=== PATIENT | male | born 1945 | race Caucasian/White ===

== ENCOUNTER 2016-06-02 20:50 | Inpatient (IN) | payer MEDICARE, BC ==
[~2016-06-02] VITALS: Ht 185.4 cm; Wt 111.1 kg
[~2016-06-02 20:50] MED LIST: ALLO100T PO; DABI150C PO; DILT120C PO; HYDR-2869 PO; INSU100C4 SQ; INSU100V13 SQ; LOSA100T6 PO; METO-269 PO; METO2.5T PO; POTA20TA82 PO; PRAV20TA2 PO; TORS100T3 PO
[2016-06-02 22:15] VITALS: BP 169/94
--- NOTE | 2016-06-03 00:46 | EKG ---
[facility] [address] [place] [address] Test Date: 2016-06-03 Test Time: 00:37:47 Pat Name: DOROTHEA HERNÁNDEZ Department: Room: 206 1 Gender: M Butcher Scullion: IAM : 1945 Requested By: MARCUS ROD Order Number: [id number] Reading MD: Kathy Moreno Measurements Intervals [place] Rate: 87 P: [place]: QRS: -59 QRSD: 122 T: 145 QT: 422 QTc: 508 Interpretive Statements IRREGULAR RHYTHM, NO P-WAVE FOUND VENTRICULAR PREMATURE COMPLEX(ES) ABNORMAL LEFT AXIS DEVIATION QRS(T) CONTOUR ABNORMALITY CONSISTENT WITH INFERIOR INFARCT PROBABLY OLD T ABNORMALITY IN HIGH LATERAL LEADS ABNORMAL ECG RI6.01 No previous ECG available for comparison Electronically Signed On 06-04-2016 0:42:00 DICE TABLE PERSON by Kathy Moreno
[2016-06-03] MEDS ORDERED: HYDR-2868 PO (02:48)
[2016-06-03] MEDS ORDERED: DABI75CA3 PO (02:48)
[2016-06-03] MEDS ORDERED: FURO40TA4 PO (02:48)
[2016-06-03 03:50] VITALS: BP 142/88
[2016-06-03] MEDS: HEPARIN PF for SUB-Q USE 5,000 UNIT/0.5 ML VIAL. SQ SCH ×3 (06:40→21:02)
[2016-06-03 07:00] VITALS: BP 165/98
[2016-06-03 07:55] LABS: BASO # 0.1 x10^3/uL (0.0-0.2); BASO % 1 % (0-3); EOS % 2 % (0-3); HEMATOCRIT 31.7 % (39.0-53.0); HEMOGLOBIN 9.9 g/dL (13.0-17.5); LYMPH # 1.2 x10^3/uL (1.0-4.8); LYMPH % 12 % (24-48); MEAN CORPUSCULAR HEMOGLOBIN 31 pg (25-35); MEAN CORPUSCULAR HGB CONC 31 g/dL (31-37); MEAN CORPUSCULAR VOLUME 101 fL (79-100); MONO % 7 % (0-9); NEUT % 79 % (31-73); PLATELET COUNT 185 x10^3/uL (140-400); RED BLOOD COUNT 3.15 x10^6/uL (4.30-5.70); RED CELL DISTRIBUTION WIDTH 17.2 % (11.5-14.5); WHITE BLOOD COUNT 10.5 x10^3/uL (4.0-11.0)
[2016-06-03 07:58] LABS: CALCIUM 8.6 mg/dL (8.5-10.1); CREATININE 3.2 mg/dL (0.7-1.3); GFR 19.4; POTASSIUM 3.3 mmol/L (3.5-5.1)
[2016-06-03] MEDS: FUROSEMIDE 40 MG/4 ML VIAL IVP SCH ×2 (10:00→13:28)
[2016-06-03 11:00] VITALS: BP 177/99
--- NOTE | 2016-06-03 12:16 | PDOC2 ---
CONSULT Date of Consult Date of Consult DATE: 06/03/16 TIME: 12:02 Reason for Consult Reason for Consult: Congestive heart failure Referring Physician Referring Physician: Dr. Rodriguez Identification/Chief Complaint Chief Complaint Edema and shortness of breath Source Source: Chart review, Patient History of Present Illness Reason for Visit: 70-year-old male with history of permanent atrial fibrillation and congestive heart failure presented initially to [facility] emergency room with progressive lower extremity edema and dyspnea on minor exertion. He was diagnosed with acute exacerbation of congestive heart failure and transferred to [facility] for further management. He complained of orthopnea but denied any chest pain, palpitations or syncope. He usually sees Dr. Jimenez with [facility] cardiology at his [place] office. Patient stated that he was seen approximately one month ago at this location by GLORIA Gomez. Past Medical History Past Medical History Permanent atrial fibrillation Congestive heart failure, mixed diastolic and systolic Stroke Hypertension Hyperlipidemia Diabetes mellitus type 2 Thoracic aortic aneurysm Obstructive sleep apnea Chronic kidney disease stage 3-4 Mild nonobstructive coronary artery disease Renal cancer Past Surgical History Past Surgical History Cataract surgery Family History Family History Positive for coronary artery disease Social History Social History Patient quit smoking 11 years ago and admitted to social intake of alcohol but denied any drug abuse. Current Medications Current Medications Current Medications Heparin Sodium (Porcine) 5,000 unit Q8HRS SQ Last administered on 06/03/16 06: 40; Start 06/03/16 at 06:00 Furosemide (Lasix) 40 mg BID92 IVP Last administered on 06/03/16 10:00; Start 06/03/16 at 09:00 Active Scripts Active Reported Furosemide 40 Mg Tablet 40 Mg PO BID Hydralazine Hcl 25 Mg Tablet 75 Mg PO TID Pradaxa (Dabigatran Etexilate Mesylate) 75 Mg Capsule 75 Mg PO BID Metolazone 2.5 Mg Tablet 2.5 Mg PO THREE TIMES A WEEK Allopurinol 100 Mg Tablet 200 Mg PO DAILY Potassium Chloride 20 Meq Tablet.er 20 Meq PO DAILY Toprol Xl (Metoprolol Succinate) 50 Mg Tab.er.24h 50 Mg PO DAILY Levemir (Insulin Detemir) 100 Unit/1 Ml Vial 100 Unit SQ PRN Losartan Potassium 100 Mg Tablet 100 Mg PO DAILY Pravastatin Sodium 20 Mg Tablet 20 Mg PO DAILY Torsemide 100 Mg Tablet 100 Mg PO DAILY Novolog (Insulin Aspart) 100 Unit/1 Ml Cartridge 100 Unit SQ PRN Diltiazem 24HR Er (Diltiazem Hcl) 120 Mg Cap.er.24h 120 Mg PO DAILY Allergies Allergies: Coded Allergies: lisinopril (Verified Adverse Reaction, Intermediate, Cough, 01/06/16) ROS PSYCHOLOGICAL ROS: No: Hallucinations Eyes: No Loss of vision HEENT: No: Epistaxis Respiratory: YES: Orthopnea, Shortness of breath, No: Hemoptysis Cardiovascular: No Chest Pain, No Palpitations Gastrointestinal: No Diarrhea, No Vomiting Neurological: No Seizures Skin: No Rash Physical Exam General: Alert, No acute distress HEENT: Atraumatic, PERRLA Lungs: Other (bilateral basal crepitations) Heart: Other (heart rate irregular) Abdomen: Soft, No tenderness Extremities: Other (2 plus pitting pedal edema bilaterally) Psych/Mental Status: Mood NL Vitals VITALS Vital Signs Date Time Temp Pulse Resp B/P Pulse Ox O2 Delivery O2 Flow Rate FiO2 06/03/16 11:00 98.1 81 24 177/99 94 Room Air 98.1 Labs Labs Laboratory Tests Test 06/03/16 00:34 06/03/16 07:35 Troponin I Quantitative 0.086ng/mL (0.000-0.055) 0.094ng/mL (0.000-0.055) White Blood Count 10.5x10^3/uL (4.0-11.0) Red Blood Count 3.15x10^6/uL (4.30-5.70) Hemoglobin 9.9g/dL (13.0-17.5) Hematocrit 31.7% (39.0-53.0) Mean Corpuscular Volume 101fL (79-100) Mean Corpuscular Hemoglobin 31pg (25-35) Mean Corpuscular Hemoglobin Concent 31g/dL (31-37) Red Cell Distribution Width 17.2% (11.5-14.5) Platelet Count 185x10^3/uL (140-400) Neutrophils (%) (Auto) 79% (31-73) Lymphocytes (%) (Auto) 12% (24-48) Monocytes (%) (Auto) 7% (0-9) Eosinophils (%) (Auto) 2% (0-3) Basophils (%) (Auto) 1% (0-3) Neutrophils # (Auto) 8.3x10^3uL (1.8-7.7) Lymphocytes # (Auto) 1.2x10^3/uL (1.0-4.8) Monocytes # (Auto) 0.7x10^3/uL (0.0-1.1) Eosinophils # (Auto) 0.2x10^3/uL (0.0-0.7) Basophils # (Auto) 0.1x10^3/uL (0.0-0.2) Sodium Level 146mmol/L (136-145) Potassium Level 3.3mmol/L (3.5-5.1) Chloride Level 112mmol/L (98-107) Carbon Dioxide Level 20mmol/L (21-32) Anion Gap 14 (6-14) Blood Urea Nitrogen 61mg/dL (8-26) Creatinine 3.2mg/dL (0.7-1.3) Estimated GFR (Cockcroft-Gault) 19.4 Glucose Level 137mg/dL (70-99) Calcium Level 8.6mg/dL (8.5-10.1) MI-Fkr-B-Type Natriuretic Peptide 30898nq/mL (0-124) Laboratory Tests Test 06/03/16 00:34 06/03/16 07:35 Troponin I Quantitative 0.086ng/mL (0.000-0.055) 0.094ng/mL (0.000-0.055) White Blood Count 10.5x10^3/uL (4.0-11.0) Red Blood Count 3.15x10^6/uL (4.30-5.70) Hemoglobin 9.9g/dL (13.0-17.5) Hematocrit 31.7% (39.0-53.0) Mean Corpuscular Volume 101fL (79-100) Mean Corpuscular Hemoglobin 31pg (25-35) Mean Corpuscular Hemoglobin Concent 31g/dL (31-37) Red Cell Distribution Width 17.2% (11.5-14.5) Platelet Count 185x10^3/uL (140-400) Neutrophils (%) (Auto) 79% (31-73) Lymphocytes (%) (Auto) 12% (24-48) Monocytes (%) (Auto) 7% (0-9) Eosinophils (%) (Auto) 2% (0-3) Basophils (%) (Auto) 1% (0-3) Neutrophils # (Auto) 8.3x10^3uL (1.8-7.7) Lymphocytes # (Auto) 1.2x10^3/uL (1.0-4.8) Monocytes # (Auto) 0.7x10^3/uL (0.0-1.1) Eosinophils # (Auto) 0.2x10^3/uL (0.0-0.7) Basophils # (Auto) 0.1x10^3/uL (0.0-0.2) Sodium Level 146mmol/L (136-145) Potassium Level 3.3mmol/L (3.5-5.1) Chloride Level 112mmol/L (98-107) Carbon Dioxide Level 20mmol/L (21-32) Anion Gap 14 (6-14) Blood Urea Nitrogen 61mg/dL (8-26) Creatinine 3.2mg/dL (0.7-1.3) Estimated GFR (Cockcroft-Gault) 19.4 Glucose Level 137mg/dL (70-99) Calcium Level 8.6mg/dL (8.5-10.1) QW-Qyn-Z-Type Natriuretic Peptide 26794qu/mL (0-124) Assessment/Plan Assessment/Plan 1. 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: Continue gentle diuresis with close monitoring of BUN/creatinine in lieu of his chronic kidney disease. 2-D echo in July 2015 showed LVEF 45-50%. We will obtain records from [facility] dean's office. 2. Hypertension: Controlled 3. Permanent atrial fibrillation: Heart rate well-controlled. Continue current medications including Pradaxa for stroke prophylaxis. 4. Slight troponin level elevation most probably type II from demand ischemia and chronic kidney disease. Patient has history of mild nonobstructive coronary artery disease. He is presently chest pain-free. Doubt ACS. 5. Hyperlipidemia: Continue statin therapy. 6. Diabetes type 2: Continue treatment per IM. 7. Chronic kidney disease: Treat per nephrology team. Thank you for your consultation. LEX BAZZI MD Jun 03, 2016 12:16
[2016-06-03] MEDS ORDERED: NON FORMULARY ITEM (Insulin Aspart (Novolog) 100 UNIT) SQ SCH (14:15)
[2016-06-03] MEDS ORDERED: INSULIN DETEMIR 100 UNIT SQ SCH (14:15)
[2016-06-03 15:00] VITALS: BP 173/86
[2016-06-03] MEDS ORDERED: FUROSEMIDE 40 MG TABLET PO SCH (15:00)
[2016-06-03] MEDS ORDERED: POTASSIUM CHLORIDE 20 MEQ TABLET.ER. PO SCH (15:00)
[2016-06-03] MEDS ORDERED: TORSEMIDE 20 MG TABLET. PO SCH (15:00)
--- NOTE | 2016-06-03 15:29 | HP ---
ADMIT DATE: 06/03/2016 CHIEF COMPLAINT: Shortness of breath. HISTORY OF PRESENT ILLNESS: The patient is a pleasant 70-year-old male who has had history of CHF in the past. He presented to [facility] with complaints of shortness of breath. It should be noted that he is also recently diagnosed with renal cell carcinoma. While at [facility], they noticed his BNP level is greater than 35,000. He had vascular congestion on chest x-ray. Dr. Prakash called me from the Emergency Room. I agreed to take the patient as direct admit back in our facility. PAST MEDICAL HISTORY: CHF, hyperlipidemia, hypertension, diabetes, Charcot joints, arthritis, renal cell carcinoma, gout, hypertension, and insomnia. ALLERGIES: LISINOPRIL. FAMILY HISTORY: Diabetes. SOCIAL HISTORY: Does not drink, smoke, or take drugs. He is retired. MEDICATIONS: Reviewed, please refer to MRAD. REVIEW OF SYSTEMS: GENERAL: No history of weight change, weakness or fevers. SKIN: No bruising, hair changes or rashes. EYES: No blurred, double or loss of vision. NOSE AND THROAT: No history of nosebleeds, hoarseness or sore throat. HEART: No history of palpitations, chest pain or shortness of breath on exertion. LUNGS: Complains of shortness of breath. GASTROINTESTINAL: Denies changes in appetite, nausea, vomiting, diarrhea or constipation. GENITOURINARY: No history of frequency, urgency, hesitancy or nocturia. NEUROLOGIC: Denies history of numbness, tingling, tremor or weakness. PSYCHIATRIC: No history of panic, anxiety or depression. ENDOCRINE: No history of heat or cold intolerance, polyuria or polydipsia. EXTREMITIES: Denies muscle weakness, joint pain, pain on walking or stiffness. PHYSICAL EXAMINATION: VITAL SIGNS: Temperature afebrile, pulse 67, respirations 21, blood pressure 142/88, O2 sat 93%. GENERAL: He is alert, cooperative. His family is present. HEART: Normal S1, S2 with a soft S3. LUNGS: Bibasilar crackles. ABDOMEN: Soft, distended, decreased bowel sounds. EXTREMITIES: 2 to 3+ edema. He has got Charcot joint. He has some diabetic foot lesions as well. We have the wound care team get involved. ENDOCRINE: No thyromegaly. LYMPHATICS: No cervical nodes. HEMATOPOIETIC: No bruising. LABORATORY DATA: CBC: White count 10, hemoglobin 9, platelets 185. Electrolytes: Sodium 146, potassium 3.3, chloride 112, bicarbonate 20, BUN 61, creatinine 3.2, glucose 137. BNP 25,446. Troponin 0.094. ASSESSMENT AND PLAN: Acute on chronic systolic and diastolic heart failure and chronic renal failure, hypokalemia, anemia, foot wounds. The patient has been admitted, given IV Lasix, consult Cardiology. Check an echocardiogram, serial enzymes, serial EKGs, replace his potassium. Wound care nurse to evaluate and treat. PROGNOSIS: Guarded. MARCUS ROD DO DR: RORO/vikki JOB#: [id number] / [id number]
[2016-06-03] MEDS ORDERED: DEXTROSE 50% 25 GM / 50ML DISP.SYRIN. IV PRN (16:00)
--- NOTE | 2016-06-03 16:41 | PDOC2 ---
CONSULT Date of Consult Date of Consult DATE: 06/03/16 TIME: 16:40 Current Medications Current Medications Current Medications Heparin Sodium (Porcine) 5,000 unit Q8HRS SQ Last administered on 06/03/16 13: 30; Start 06/03/16 at 06:00 Furosemide (Lasix) 40 mg BID92 IVP Last administered on 06/03/16 13:28; Start 06/03/16 at 09:00 Allopurinol (Zyloprim) 200 mg DAILY PO ; Start 06/03/16 at 15:00 Dabigatran (Pradaxa) 75 mg BID PO ; Start 06/03/16 at 15:00 Diltiazem HCl (Cardizem 24hr Cd) 120 mg DAILY PO ; Start 06/03/16 at 15:00 Furosemide (Lasix) 40 mg BID92 PO ; Start 06/03/16 at 15:00 Hydralazine HCl (Apresoline) 75 mg TID PO ; Start 06/03/16 at 15:00 Metoprolol Succinate (Toprol Xl) 50 mg DAILY PO ; Start 06/03/16 at 15:00 Non-Formulary Medication 100 unit prn SQ ; Start 06/03/16 at 14:15; Stop at 16:02; Status DC Non-Formulary Medication 100 unit prn SQ ; Start 06/03/16 at 14:15; Status UNV Losartan Potassium (Cozaar) 100 mg DAILY PO ; Start 06/03/16 at 15:00 Potassium Chloride (Klor-Con) 20 meq DAILYWBKFT PO ; Start 06/03/16 at 15:00 Atorvastatin Calcium (Lipitor) 5 mg QHS PO ; Start 06/03/16 at 21:00 Torsemide (Demadex) 100 mg DAILY PO ; Start 06/03/16 at 15:00 Insulin Aspart (Novolog) 0-5 UNITS TIDWMEALS SQ ; Start 06/03/16 at 17:00 Dextrose 12.5 gm PRN Q15MIN PRN IV SEE COMMENTS; Start 06/03/16 at 16:00 Insulin Detemir (Levemir) 25 units QHS SQ ; Start 06/03/16 at 21:00 Active Scripts Active Reported Furosemide 40 Mg Tablet 40 Mg PO BID Hydralazine Hcl 25 Mg Tablet 75 Mg PO TID Pradaxa (Dabigatran Etexilate Mesylate) 75 Mg Capsule 75 Mg PO BID Metolazone 2.5 Mg Tablet 2.5 Mg PO THREE TIMES A WEEK Allopurinol 100 Mg Tablet 200 Mg PO DAILY Potassium Chloride 20 Meq Tablet.er 20 Meq PO DAILY Toprol Xl (Metoprolol Succinate) 50 Mg Tab.er.24h 50 Mg PO DAILY Levemir (Insulin Detemir) 100 Unit/1 Ml Vial 25 Unit SQ QHS Losartan Potassium 100 Mg Tablet 100 Mg PO DAILY Pravastatin Sodium 20 Mg Tablet 20 Mg PO DAILY Torsemide 100 Mg Tablet 100 Mg PO DAILY Novolog (Insulin Aspart) 100 Unit/1 Ml Cartridge 100 Unit SQ PRN Diltiazem 24HR Er (Diltiazem Hcl) 120 Mg Cap.er.24h 120 Mg PO DAILY Allergies Allergies: Coded Allergies: lisinopril (Verified Adverse Reaction, Intermediate, Cough, 01/06/16) Vitals VITALS Vital Signs Date Time Temp Pulse Resp B/P Pulse Ox O2 Delivery O2 Flow Rate FiO2 06/03/16 15:00 98.2 97 22 173/86 95 Room Air 98.2 Labs Labs Laboratory Tests Test 06/03/16 00:34 06/03/16 07:35 Troponin I Quantitative 0.086ng/mL (0.000-0.055) 0.094ng/mL (0.000-0.055) White Blood Count 10.5x10^3/uL (4.0-11.0) Red Blood Count 3.15x10^6/uL (4.30-5.70) Hemoglobin 9.9g/dL (13.0-17.5) Hematocrit 31.7% (39.0-53.0) Mean Corpuscular Volume 101fL (79-100) Mean Corpuscular Hemoglobin 31pg (25-35) Mean Corpuscular Hemoglobin Concent 31g/dL (31-37) Red Cell Distribution Width 17.2% (11.5-14.5) Platelet Count 185x10^3/uL (140-400) Neutrophils (%) (Auto) 79% (31-73) Lymphocytes (%) (Auto) 12% (24-48) Monocytes (%) (Auto) 7% (0-9) Eosinophils (%) (Auto) 2% (0-3) Basophils (%) (Auto) 1% (0-3) Neutrophils # (Auto) 8.3x10^3uL (1.8-7.7) Lymphocytes # (Auto) 1.2x10^3/uL (1.0-4.8) Monocytes # (Auto) 0.7x10^3/uL (0.0-1.1) Eosinophils # (Auto) 0.2x10^3/uL (0.0-0.7) Basophils # (Auto) 0.1x10^3/uL (0.0-0.2) Sodium Level 146mmol/L (136-145) Potassium Level 3.3mmol/L (3.5-5.1) Chloride Level 112mmol/L (98-107) Carbon Dioxide Level 20mmol/L (21-32) Anion Gap 14 (6-14) Blood Urea Nitrogen 61mg/dL (8-26) Creatinine 3.2mg/dL (0.7-1.3) Estimated GFR (Cockcroft-Gault) 19.4 Glucose Level 137mg/dL (70-99) Calcium Level 8.6mg/dL (8.5-10.1) YC-Gcu-L-Type Natriuretic Peptide 70718va/mL (0-124) Laboratory Tests Test 06/03/16 00:34 06/03/16 07:35 Troponin I Quantitative 0.086ng/mL (0.000-0.055) 0.094ng/mL (0.000-0.055) White Blood Count 10.5x10^3/uL (4.0-11.0) Red Blood Count 3.15x10^6/uL (4.30-5.70) Hemoglobin 9.9g/dL (13.0-17.5) Hematocrit 31.7% (39.0-53.0) Mean Corpuscular Volume 101fL (79-100) Mean Corpuscular Hemoglobin 31pg (25-35) Mean Corpuscular Hemoglobin Concent 31g/dL (31-37) Red Cell Distribution Width 17.2% (11.5-14.5) Platelet Count 185x10^3/uL (140-400) Neutrophils (%) (Auto) 79% (31-73) Lymphocytes (%) (Auto) 12% (24-48) Monocytes (%) (Auto) 7% (0-9) Eosinophils (%) (Auto) 2% (0-3) Basophils (%) (Auto) 1% (0-3) Neutrophils # (Auto) 8.3x10^3uL (1.8-7.7) Lymphocytes # (Auto) 1.2x10^3/uL (1.0-4.8) Monocytes # (Auto) 0.7x10^3/uL (0.0-1.1) Eosinophils # (Auto) 0.2x10^3/uL (0.0-0.7) Basophils # (Auto) 0.1x10^3/uL (0.0-0.2) Sodium Level 146mmol/L (136-145) Potassium Level 3.3mmol/L (3.5-5.1) Chloride Level 112mmol/L (98-107) Carbon Dioxide Level 20mmol/L (21-32) Anion Gap 14 (6-14) Blood Urea Nitrogen 61mg/dL (8-26) Creatinine 3.2mg/dL (0.7-1.3) Estimated GFR (Cockcroft-Gault) 19.4 Glucose Level 137mg/dL (70-99) Calcium Level 8.6mg/dL (8.5-10.1) WC-Axs-I-Type Natriuretic Peptide 25623bs/mL (0-124) Assessment/Plan Assessment/Plan RENAL CONSULT / MIRIAN. Lizbeth. # [id number]. Thank you. See orders. ELVIA VELA MD Jun 03, 2016 16:41
[2016-06-03] MEDS: DABIGATRAN ETEXILATE 75 MG CAPSULE. PO SCH ×2 (16:56→21:00)
[2016-06-03] MEDS: METOPROLOL SUCC 24HR ER 50 MG TAB.ER.24H. PO SCH (16:56)
[2016-06-03] MEDS: ALLOPURINOL 100 MG TABLET. PO SCH (16:56)
[2016-06-03] MEDS: DILTIAZEM HCL 120 MG CAP.ER.24H PO SCH (16:57)
[2016-06-03] MEDS: HYDRALAZINE 25 MG TABLET PO SCH ×2 (16:57→21:00)
[2016-06-03] MEDS: INSULIN ASPART 300 UNITS/3 ML INSULN.PEN SQ SCH (17:00)
[2016-06-03 19:55] VITALS: BP 151/92
[2016-06-03] MEDS: POTASSIUM CHLORIDE 20 MEQ TABLET.ER. PO SCH (21:00)
[2016-06-03] MEDS: ATORVASTATIN CALCIUM 10 MG TABLET. PO SCH (21:00)
[2016-06-03] MEDS: INSULIN DETEMIR 300 UNITS/3 ML INSULN.PEN. SQ SCH (21:02)
[2016-06-03 23:05] VITALS: BP 145/88
--- NOTE | 2016-06-03 23:25 | CONS ---
DATE OF CONSULTATION: 06/03/2016 REASON FOR CONSULTATION: Acute on chronic renal failure. HISTORY OF PRESENT ILLNESS: The patient is known to our service, a 70-year-old gentleman who is followed with Dr. Morgan in the past. Baseline creatinine has been fluctuating, but close to 2 for the most. Hospitalized because of issues with increased edema, shortness of breath, not feeling well. A week ago, apparently he was at [facility] where he had a biopsy, which appears to be somewhat of controversy because some indication ____ that he had a kidney biopsy, which is not obvious as the patient denies it. He thinks there was a skin biopsy done for a potential lesion for which he is now being followed for malignancy with Dr. Menard. He denies any blood in his urine. He denies any chest pains. His shortness of breath has been progressively getting worse over the last several days. No palpitations, no diaphoresis. No other active complaints. In 2013, he did have left-sided renal mass which was being followed by Dr. Menard. He is unfortunately very poor in terms of recalling details of his history and most of this is being obtained through the chart. His family was not available for discussion. There is some report that he was diagnosed recently with renal cell cancer. PAST MEDICAL HISTORY: Significant for: 1. Hypertension. 2. Type 2 diabetes with nephropathy. 3. Chronic kidney disease, stage 4, secondary to hypertensive and diabetic nephrosclerosis. 4. History of left renal cell carcinoma, follows with Dr. Menard. 5. History of multiple diabetic complications including nephropathy, neuropathy, vascular disease and Charcot joint. 6. Degenerative joint disease. 7. Anemia of chronic kidney failure. 8. Insomnia. 9. History of hyperuricemia and gout. PAST SURGICAL HISTORY: Significant for the kidney biopsy detailed above. REVIEW OF SYSTEMS: As above, otherwise negative on a 10-point scale. FAMILY HISTORY: Noncontributory due to advanced age, but does not recall anybody with kidney cancer or dialysis in the family. SOCIAL HISTORY: No tobacco, alcohol or recreational drugs. . ALLERGIES: Reviewed. MEDICATIONS: Reviewed. PHYSICAL EXAMINATION: GENERAL: Middle-aged gentleman who appears in no distress. VITAL SIGNS: Stable. He is afebrile. HEENT: Pupils reactive. Tongue midline. NECK: Supple. No JVD, thyromegaly, masses, or bruits. LUNGS: Fair air entry. No rhonchi, no rales or wheezing. CARDIOVASCULAR: Regular rate and rhythm, no gallop, no rub, distant heart sounds. ABDOMEN: Potly, soft, nontender, no rebound or masses. Bowel sounds are active. EXTREMITIES: 2 to 3+ edema. NEUROLOGIC: Although he is awake and alert, his memory is poor. His speech is normal. Gait was not assessed, otherwise fairly consistent motor and sensory exam. LABORATORY DATA: Reviewed. BUN is now in the 60s, creatinine is 3 which is clearly elevated over his baseline. IMPRESSION: 1. Acute renal failure due to renal hypoperfusion, possibly from congestive heart failure. 2. CKD from hypertensive and diabetic nephrosclerosis. 3. Edema, CHF, probably diastolic. Cardiac workup pending. 4. Renal cell carcinoma. PLAN: At this point, would continue with supportive care. Adjust potassium. Monitor intake and output. Labs daily. Thank you very much for the consultation. I appreciate the referral. We will follow the patient with you. ELVIA VELA MD DR: KRYS/vikki JOB#: [id number] / [id number]
[2016-06-04] VITALS (7 sets, daily range): BP systolic 121–130; BP diastolic 69–79
[2016-06-04 04:28] LABS: BASO # 0.1 x10^3/uL (0.0-0.2); BASO % 1 % (0-3); EOS % 2 % (0-3); HEMATOCRIT 31.6 % (39.0-53.0); LYMPH # 1.1 x10^3/uL (1.0-4.8); LYMPH % 10 % (24-48); MEAN CORPUSCULAR HEMOGLOBIN 31 pg (25-35); MEAN CORPUSCULAR HGB CONC 32 g/dL (31-37); MEAN CORPUSCULAR VOLUME 99 fL (79-100); MONO % 7 % (0-9); NEUT % 81 % (31-73); PLATELET COUNT 185 x10^3/uL (140-400); RED CELL DISTRIBUTION WIDTH 16.8 % (11.5-14.5); WHITE BLOOD COUNT 11.7 x10^3/uL (4.0-11.0)
[2016-06-04 04:47] LABS: ALBUMIN 2.9 g/dL (3.4-5.0); ALBUMIN/GLOBULIN RATIO 0.8 (1.0-1.7); CALCIUM 8.7 mg/dL (8.5-10.1); CREATININE 3.2 mg/dL (0.7-1.3); GFR 19.4; MAGNESIUM 2.1 mg/dL (1.8-2.4); PHOSPHORUS 4.4 mg/dL (2.6-4.7); POTASSIUM 3.3 mmol/L (3.5-5.1); TOTAL BILIRUBIN 0.5 mg/dL (0.2-1.0); TOTAL PROTEIN 6.5 g/dL (6.4-8.2)
[2016-06-04] MEDS: HEPARIN PF for SUB-Q USE 5,000 UNIT/0.5 ML VIAL. SQ SCH ×2 (05:45→13:44)
[2016-06-04] MEDS: INSULIN ASPART 300 UNITS/3 ML INSULN.PEN SQ SCH ×3 (08:00→17:00)
[2016-06-04] MEDS: LOSARTAN POTASSIUM 50 MG TABLET. PO SCH ×2 (09:00→09:42)
--- NOTE | 2016-06-04 09:29 | EKG ---
[address] [place] [address] Test Date: 2016-06-04 Test Time: 09:03:26 Pat Name: DOROTHEA HERNÁNDEZ Department: Room: 206 1 Gender: M Cleaning Associate: RIGO : 1945 Requested By: MARCUS ROD Order Number: [id number] Reading MD: Art Romano Measurements Intervals [place] Rate: 72 P: [place]: QRS: -64 QRSD: 124 T: -123 QT: 480 QTc: 527 Interpretive Statements ATRIAL FIBRILLATION WITH CONTROLLED VENTRICULAR RESPONSE PVC Electronically Signed On 06-05-2016 13:09:20 OUTSIDE COLLECTOR by Art Romano
[2016-06-04] MEDS: ALLOPURINOL 100 MG TABLET. PO SCH (09:41)
[2016-06-04] MEDS: DILTIAZEM HCL 120 MG CAP.ER.24H PO SCH (09:41)
[2016-06-04] MEDS: POTASSIUM CHLORIDE 20 MEQ TABLET.ER. PO SCH ×2 (09:41→22:18)
[2016-06-04] MEDS: DABIGATRAN ETEXILATE 75 MG CAPSULE. PO SCH ×2 (09:41→22:19)
[2016-06-04] MEDS: FUROSEMIDE 40 MG/4 ML VIAL IVP SCH ×2 (09:42→13:34)
[2016-06-04] MEDS: HYDRALAZINE 25 MG TABLET PO SCH ×3 (09:42→22:14)
[2016-06-04] MEDS: METOPROLOL SUCC 24HR ER 50 MG TAB.ER.24H. PO SCH (09:42)
--- NOTE | 2016-06-04 09:56 | PDOC ---
EVELYN FARFAN CEMENT [facility]ON APPRENTICE 06/04/16 0956: CARDIO Progress Notes Date and Time Date of Service 06/04/16 Time of Evaluation 1010 Subjective Subjective: No Chest Pain, No Palpitations, Other (breathing improved ) Vitals Vitals Vital Signs Date Time Temp Pulse Resp B/P Pulse Ox O2 Delivery O2 Flow Rate FiO2 06/04/16 09:42 71 121/69 06/04/16 07:55 97.4 20 94 Room Air 97.4 Weight Weight [ ] Input and Output Intake and Output Intake and Output 06/04/16 07:00 Intake Total 1520 ml Output Total 1570 ml Balance -50 ml Intake Oral 1520 ml Output Urine Total 1570 ml # Bowel Movements 1 Laboratory Labs Laboratory Tests Test 06/03/16 12:07 06/03/16 17:28 06/03/16 20:51 06/04/16 03:50 Glucose (Fingerstick) 176mg/dL (70-99) 144mg/dL (70-99) 203mg/dL (70-99) White Blood Count 11.7x10^3/uL (4.0-11.0) Red Blood Count 3.20x10^6/uL (4.30-5.70) Hemoglobin 10.0g/dL (13.0-17.5) Hematocrit 31.6% (39.0-53.0) Mean Corpuscular Volume 99fL (79-100) Mean Corpuscular Hemoglobin 31pg (25-35) Mean Corpuscular Hemoglobin Concent 32g/dL (31-37) Red Cell Distribution Width 16.8% (11.5-14.5) Platelet Count 185x10^3/uL (140-400) Neutrophils (%) (Auto) 81% (31-73) Lymphocytes (%) (Auto) 10% (24-48) Monocytes (%) (Auto) 7% (0-9) Eosinophils (%) (Auto) 2% (0-3) Basophils (%) (Auto) 1% (0-3) Neutrophils # (Auto) 9.4x10^3uL (1.8-7.7) Lymphocytes # (Auto) 1.1x10^3/uL (1.0-4.8) Monocytes # (Auto) 0.8x10^3/uL (0.0-1.1) Eosinophils # (Auto) 0.2x10^3/uL (0.0-0.7) Basophils # (Auto) 0.1x10^3/uL (0.0-0.2) Sodium Level 147mmol/L (136-145) Potassium Level 3.3mmol/L (3.5-5.1) Chloride Level 110mmol/L (98-107) Carbon Dioxide Level 21mmol/L (21-32) Anion Gap 16 (6-14) Blood Urea Nitrogen 61mg/dL (8-26) Creatinine 3.2mg/dL (0.7-1.3) Estimated GFR (Cockcroft-Gault) 19.4 BUN/Creatinine Ratio 19 (6-20) Glucose Level 139mg/dL (70-99) Calcium Level 8.7mg/dL (8.5-10.1) Phosphorus Level 4.4mg/dL (2.6-4.7) Magnesium Level 2.1mg/dL (1.8-2.4) Total Bilirubin 0.5mg/dL (0.2-1.0) Aspartate Amino Transf (AST/SGOT) 14U/L (15-37) Alanine Aminotransferase (ALT/SGPT) 20U/L (16-63) Alkaline Phosphatase 107U/L (46-116) Total Protein 6.5g/dL (6.4-8.2) Albumin 2.9g/dL (3.4-5.0) Albumin/Globulin Ratio 0.8 (1.0-1.7) Test 06/04/16 07:58 Glucose (Fingerstick) 110mg/dL (70-99) Physical Exam HEENT: Neck Supple W Full Motion Chest: Symmetric LUNGS: Clear to Auscultation Heart: S1S2, irregularly irregular, other (tele AFIB) Abdomen: Soft N/T Extremities: Other (2+ pitting bilateral LE with erythema ) Neurology: alert, oriented, follow commands Assessment Assessment 1. 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 Improved with IV diuresis. Negative 1L overall yesterday. echo in 07/2015 showed LVEF 45-50%. Repeat echo pending. Continue gentle diuresis with close monitoring of renal function 2. Hypertension well-controlled. continue with current therapy 3. Permanent AFIB rate controlled with BB and CCB. Pradaxa for stroke prophylaxis. 4. Mildly elevated troponin peak 0.094. likely type II, demand ischemia in the setting of SARAH/CKD 5. h/o mild nonobstructive CAD stable. CP free. Doubt ACS. continue medical management 6. Hyperlipidemia statin therapy. 7. Diabetes type 2 per PCP 8. SARAH and CKD Cr stable at 3.2 per nephrology 9. Renal cell carcinoma LEX BAZZI MD 06/04/16 1534: CARDIO Progress Notes Assessment Assessment Patient seen and examined. Agree with TRAFFIC AGENT's assessment and plan. Acute on chronic systolic heart failure better compensated with diuresis. 2-D echo showed severe left ventricle systolic dysfunction with EF 20-25%. This has diminished compared to his prior 2-D echocardiogram from 2016. We will obtain Lexiscan nuclear stress test to rule out ischemic etiology. Permanent atrial fibrillation rate controlled. Continue current medical regimen. EVELYN FARFAN APRN Jun 04, 2016 09:56 LEX BAZZI MD Jun 04, 2016 15:34
[2016-06-04] MEDS ORDERED: POTASSIUM CHLORIDE 20 MEQ TABLET.ER. PO ONE (10:30)
--- NOTE | 2016-06-04 10:56 | PDOC ---
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 Deluna was sitting comfortably in bedside chair on exam this AM. Discussed plan of care with patient and that we are awaiting heme/onc consultation. The patient had no new complaints at this time. Vitals Vitals Vital Signs Date Time Temp Pulse Resp B/P Pulse Ox O2 Delivery O2 Flow Rate FiO2 06/04/16 09:42 71 121/69 06/04/16 07:55 97.4 20 94 Room Air 97.4 Physical Exam General: Alert, Oriented X3, Cooperative, No acute distress Heart: Normal S1, Normal S2, Other (soft S3) Lungs: Other (few crackles ) Abdomen: Soft, No tenderness Extremities: Other (less edema today; b/l charcot foot deformity) Skin: Other (ecchymosis left arm ) Labs LABS Laboratory Tests Test 06/03/16 12:07 06/03/16 17:28 06/03/16 20:51 06/04/16 03:50 Glucose (Fingerstick) 176mg/dL (70-99) 144mg/dL (70-99) 203mg/dL (70-99) White Blood Count 11.7x10^3/uL (4.0-11.0) Red Blood Count 3.20x10^6/uL (4.30-5.70) Hemoglobin 10.0g/dL (13.0-17.5) Hematocrit 31.6% (39.0-53.0) Mean Corpuscular Volume 99fL (79-100) Mean Corpuscular Hemoglobin 31pg (25-35) Mean Corpuscular Hemoglobin Concent 32g/dL (31-37) Red Cell Distribution Width 16.8% (11.5-14.5) Platelet Count 185x10^3/uL (140-400) Neutrophils (%) (Auto) 81% (31-73) Lymphocytes (%) (Auto) 10% (24-48) Monocytes (%) (Auto) 7% (0-9) Eosinophils (%) (Auto) 2% (0-3) Basophils (%) (Auto) 1% (0-3) Neutrophils # (Auto) 9.4x10^3uL (1.8-7.7) Lymphocytes # (Auto) 1.1x10^3/uL (1.0-4.8) Monocytes # (Auto) 0.8x10^3/uL (0.0-1.1) Eosinophils # (Auto) 0.2x10^3/uL (0.0-0.7) Basophils # (Auto) 0.1x10^3/uL (0.0-0.2) Sodium Level 147mmol/L (136-145) Potassium Level 3.3mmol/L (3.5-5.1) Chloride Level 110mmol/L (98-107) Carbon Dioxide Level 21mmol/L (21-32) Anion Gap 16 (6-14) Blood Urea Nitrogen 61mg/dL (8-26) Creatinine 3.2mg/dL (0.7-1.3) Estimated GFR (Cockcroft-Gault) 19.4 BUN/Creatinine Ratio 19 (6-20) Glucose Level 139mg/dL (70-99) Calcium Level 8.7mg/dL (8.5-10.1) Phosphorus Level 4.4mg/dL (2.6-4.7) Magnesium Level 2.1mg/dL (1.8-2.4) Total Bilirubin 0.5mg/dL (0.2-1.0) Aspartate Amino Transf (AST/SGOT) 14U/L (15-37) Alanine Aminotransferase (ALT/SGPT) 20U/L (16-63) Alkaline Phosphatase 107U/L (46-116) Total Protein 6.5g/dL (6.4-8.2) Albumin 2.9g/dL (3.4-5.0) Albumin/Globulin Ratio 0.8 (1.0-1.7) Test 06/04/16 07:58 Glucose (Fingerstick) 110mg/dL (70-99) Review of Systems Review of Systems Denied chest pain Some shortness of breath Denied nausea, vomiting, fever, chills Assessment and Plan Assessmemt and Plan Assessment: -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 -Renal cell carcinoma -Hypokalemia -Hypertension -Permanent atrial fibrillation -Slight troponin level elevation -Hyperlipidemia -Diabetes type 2 -Chronic kidney disease -Gout -Arthritis -Insomnia Plan -Continue gentle diuresis, monitor BUN/creatinine -Ordered 40 MEQ potassium chloride -Awaiting heme/onc input -Continue cardiac monitoring -Continue rate control medications for a-fib and Pradaxa for stroke prophylaxis -Continue statin therapy for hyperlipidemia -Cardiology following -Nephrology following for chronic kidney disease -Continue Allopurinol for gout -Continue insulin for for DM -PT/OT -Appreciate subspecialist input Problems: Comment Review of Relevant I have reviewed the following items jennifer (where applicable) has been applied. Labs Laboratory Tests Test 06/03/16 00:34 06/03/16 07:35 06/03/16 07:54 06/03/16 12:07 Troponin I Quantitative 0.086ng/mL (0.000-0.055) 0.094ng/mL (0.000-0.055) White Blood Count 10.5x10^3/uL (4.0-11.0) Red Blood Count 3.15x10^6/uL (4.30-5.70) Hemoglobin 9.9g/dL (13.0-17.5) Hematocrit 31.7% (39.0-53.0) Mean Corpuscular Volume 101fL (79-100) Mean Corpuscular Hemoglobin 31pg (25-35) Mean Corpuscular Hemoglobin Concent 31g/dL (31-37) Red Cell Distribution Width 17.2% (11.5-14.5) Platelet Count 185x10^3/uL (140-400) Neutrophils (%) (Auto) 79% (31-73) Lymphocytes (%) (Auto) 12% (24-48) Monocytes (%) (Auto) 7% (0-9) Eosinophils (%) (Auto) 2% (0-3) Basophils (%) (Auto) 1% (0-3) Neutrophils # (Auto) 8.3x10^3uL (1.8-7.7) Lymphocytes # (Auto) 1.2x10^3/uL (1.0-4.8) Monocytes # (Auto) 0.7x10^3/uL (0.0-1.1) Eosinophils # (Auto) 0.2x10^3/uL (0.0-0.7) Basophils # (Auto) 0.1x10^3/uL (0.0-0.2) Sodium Level 146mmol/L (136-145) Potassium Level 3.3mmol/L (3.5-5.1) Chloride Level 112mmol/L (98-107) Carbon Dioxide Level 20mmol/L (21-32) Anion Gap 14 (6-14) Blood Urea Nitrogen 61mg/dL (8-26) Creatinine 3.2mg/dL (0.7-1.3) Estimated GFR (Cockcroft-Gault) 19.4 Glucose Level 137mg/dL (70-99) Calcium Level 8.6mg/dL (8.5-10.1) IH-Lql-C-Type Natriuretic Peptide 71401wa/mL (0-124) Glucose (Fingerstick) 139mg/dL (70-99) 176mg/dL (70-99) Test 06/03/16 17:28 06/03/16 20:51 06/04/16 03:50 06/04/16 07:58 Glucose (Fingerstick) 144mg/dL (70-99) 203mg/dL (70-99) 110mg/dL (70-99) White Blood Count 11.7x10^3/uL (4.0-11.0) Red Blood Count 3.20x10^6/uL (4.30-5.70) Hemoglobin 10.0g/dL (13.0-17.5) Hematocrit 31.6% (39.0-53.0) Mean Corpuscular Volume 99fL (79-100) Mean Corpuscular Hemoglobin 31pg (25-35) Mean Corpuscular Hemoglobin Concent 32g/dL (31-37) Red Cell Distribution Width 16.8% (11.5-14.5) Platelet Count 185x10^3/uL (140-400) Neutrophils (%) (Auto) 81% (31-73) Lymphocytes (%) (Auto) 10% (24-48) Monocytes (%) (Auto) 7% (0-9) Eosinophils (%) (Auto) 2% (0-3) Basophils (%) (Auto) 1% (0-3) Neutrophils # (Auto) 9.4x10^3uL (1.8-7.7) Lymphocytes # (Auto) 1.1x10^3/uL (1.0-4.8) Monocytes # (Auto) 0.8x10^3/uL (0.0-1.1) Eosinophils # (Auto) 0.2x10^3/uL (0.0-0.7) Basophils # (Auto) 0.1x10^3/uL (0.0-0.2) Sodium Level 147mmol/L (136-145) Potassium Level 3.3mmol/L (3.5-5.1) Chloride Level 110mmol/L (98-107) Carbon Dioxide Level 21mmol/L (21-32) Anion Gap 16 (6-14) Blood Urea Nitrogen 61mg/dL (8-26) Creatinine 3.2mg/dL (0.7-1.3) Estimated GFR (Cockcroft-Gault) 19.4 BUN/Creatinine Ratio 19 (6-20) Glucose Level 139mg/dL (70-99) Calcium Level 8.7mg/dL (8.5-10.1) Phosphorus Level 4.4mg/dL (2.6-4.7) Magnesium Level 2.1mg/dL (1.8-2.4) Total Bilirubin 0.5mg/dL (0.2-1.0) Aspartate Amino Transf (AST/SGOT) 14U/L (15-37) Alanine Aminotransferase (ALT/SGPT) 20U/L (16-63) Alkaline Phosphatase 107U/L (46-116) Total Protein 6.5g/dL (6.4-8.2) Albumin 2.9g/dL (3.4-5.0) Albumin/Globulin Ratio 0.8 (1.0-1.7) Laboratory Tests Test 06/03/16 12:07 06/03/16 17:28 06/03/16 20:51 06/04/16 03:50 Glucose (Fingerstick) 176mg/dL (70-99) 144mg/dL (70-99) 203mg/dL (70-99) White Blood Count 11.7x10^3/uL (4.0-11.0) Red Blood Count 3.20x10^6/uL (4.30-5.70) Hemoglobin 10.0g/dL (13.0-17.5) Hematocrit 31.6% (39.0-53.0) Mean Corpuscular Volume 99fL (79-100) Mean Corpuscular Hemoglobin 31pg (25-35) Mean Corpuscular Hemoglobin Concent 32g/dL (31-37) Red Cell Distribution Width 16.8% (11.5-14.5) Platelet Count 185x10^3/uL (140-400) Neutrophils (%) (Auto) 81% (31-73) Lymphocytes (%) (Auto) 10% (24-48) Monocytes (%) (Auto) 7% (0-9) Eosinophils (%) (Auto) 2% (0-3) Basophils (%) (Auto) 1% (0-3) Neutrophils # (Auto) 9.4x10^3uL (1.8-7.7) Lymphocytes # (Auto) 1.1x10^3/uL (1.0-4.8) Monocytes # (Auto) 0.8x10^3/uL (0.0-1.1) Eosinophils # (Auto) 0.2x10^3/uL (0.0-0.7) Basophils # (Auto) 0.1x10^3/uL (0.0-0.2) Sodium Level 147mmol/L (136-145) Potassium Level 3.3mmol/L (3.5-5.1) Chloride Level 110mmol/L (98-107) Carbon Dioxide Level 21mmol/L (21-32) Anion Gap 16 (6-14) Blood Urea Nitrogen 61mg/dL (8-26) Creatinine 3.2mg/dL (0.7-1.3) Estimated GFR (Cockcroft-Gault) 19.4 BUN/Creatinine Ratio 19 (6-20) Glucose Level 139mg/dL (70-99) Calcium Level 8.7mg/dL (8.5-10.1) Phosphorus Level 4.4mg/dL (2.6-4.7) Magnesium Level 2.1mg/dL (1.8-2.4) Total Bilirubin 0.5mg/dL (0.2-1.0) Aspartate Amino Transf (AST/SGOT) 14U/L (15-37) Alanine Aminotransferase (ALT/SGPT) 20U/L (16-63) Alkaline Phosphatase 107U/L (46-116) Total Protein 6.5g/dL (6.4-8.2) Albumin 2.9g/dL (3.4-5.0) Albumin/Globulin Ratio 0.8 (1.0-1.7) Test 06/04/16 07:58 Glucose (Fingerstick) 110mg/dL (70-99) Medications Current Medications Heparin Sodium (Porcine) 5,000 unit Q8HRS SQ Last administered on 06/04/16 05: 45; Start 06/03/16 at 06:00 Furosemide (Lasix) 40 mg BID92 IVP Last administered on 06/04/16 09:42; Start 06/03/16 at 09:00 Allopurinol (Zyloprim) 200 mg DAILY PO Last administered on 06/04/16 09:41; Start 06/03/16 at 15:00 Dabigatran (Pradaxa) 75 mg BID PO Last administered on 06/04/16 09:41; Start 06/03/16 at 15:00 Diltiazem HCl (Cardizem 24hr Cd) 120 mg DAILY PO Last administered on 09:41; Start 06/03/16 at 15:00 Furosemide (Lasix) 40 mg BID92 PO ; Start 06/03/16 at 15:00; Stop 06/03/16 at 16 :42; Status DC Hydralazine HCl (Apresoline) 75 mg TID PO Last administered on 06/04/16 09:42 ; Start 06/03/16 at 15:00 Metoprolol Succinate (Toprol Xl) 50 mg DAILY PO Last administered on 06/04/16 09:42; Start 06/03/16 at 15:00 Non-Formulary Medication 100 unit prn SQ ; Start 06/03/16 at 14:15; Stop at 16:02; Status DC Non-Formulary Medication 100 unit prn SQ ; Start 06/03/16 at 14:15; Status UNV Losartan Potassium (Cozaar) 100 mg DAILY PO Last administered on 06/04/16 09: 00; Start 06/03/16 at 15:00 Potassium Chloride (Klor-Con) 20 meq DAILYWBKFT PO ; Start 06/03/16 at 15:00; Stop 06/03/16 at 16:42; Status DC Atorvastatin Calcium (Lipitor) 5 mg QHS PO Last administered on 06/03/16 21:00 ; Start 06/03/16 at 21:00 Torsemide (Demadex) 100 mg DAILY PO ; Start 06/03/16 at 15:00; Stop 06/03/16 at 16:42; Status DC Insulin Aspart (Novolog) 0-5 UNITS TIDWMEALS SQ ; Start 06/03/16 at 17:00 Dextrose 12.5 gm PRN Q15MIN PRN IV SEE COMMENTS; Start 06/03/16 at 16:00 Insulin Detemir (Levemir) 25 units QHS SQ Last administered on 06/03/16 21:02 ; Start 06/03/16 at 21:00 Potassium Chloride (Klor-Con) 20 meq BID PO Last administered on 06/04/16 09: 41; Start 06/03/16 at 21:00 Active Scripts Active Reported Furosemide 40 Mg Tablet 40 Mg PO BID Hydralazine Hcl 25 Mg Tablet 75 Mg PO TID Pradaxa (Dabigatran Etexilate Mesylate) 75 Mg Capsule 75 Mg PO BID Metolazone 2.5 Mg Tablet 2.5 Mg PO THREE TIMES A WEEK Allopurinol 100 Mg Tablet 200 Mg PO DAILY Potassium Chloride 20 Meq Tablet.er 20 Meq PO DAILY Toprol Xl (Metoprolol Succinate) 50 Mg Tab.er.24h 50 Mg PO DAILY Levemir (Insulin Detemir) 100 Unit/1 Ml Vial 25 Unit SQ QHS Losartan Potassium 100 Mg Tablet 100 Mg PO DAILY Pravastatin Sodium 20 Mg Tablet 20 Mg PO DAILY Torsemide 100 Mg Tablet 100 Mg PO DAILY Novolog (Insulin Aspart) 100 Unit/1 Ml Cartridge 100 Unit SQ PRN Diltiazem 24HR Er (Diltiazem Hcl) 120 Mg Cap.er.24h 120 Mg PO DAILY Vitals/I & O Vital Sign - Last 24 Hours 06/03/16 06/03/16 06/03/16 06/03/16 11:00 15:00 16:56 16:57 Temp 98.1 98.2 98.1 98.2 Pulse 81 97 97 97 Resp 24 22 B/P 177/99 173/86 173/86 173/86 Pulse Ox 94 95 O2 Delivery Room Air Room Air 06/03/16 06/03/16 06/03/1606/03/17 16:57 19:55 20:06 21:00 Temp 98.0 98.0 Pulse 97 82 82 Resp 20 B/P 173/86 151/92 151/92 Pulse Ox 98 O2 Delivery Room Air Room Air 06/03/16 06/04/16 06/04/16 06/04/16 23:05 03:15 07:55 09:00 Temp 98.0 97.5 97.4 98.0 97.5 97.4 Pulse 65 71 71 71 Resp 18 18 20 B/P 145/88 130/79 121/69 121/69 Pulse Ox 95 97 94 O2 Delivery Room Air Room Air Room Air 06/04/16 06/04/16 06/04/16 06/04/16 09:41 09:42 09:42 09:42 Pulse 71 71 71 71 B/P 121/69 121/69 121/69 121/69 Intake and Output 06/03/16 06/03/16 06/04/16 15:00 23:00 07:00 Intake Total 920 ml 600 ml Output Total 1370 ml 200 ml Balance -450 ml 400 ml MARCUS ROD III DO Jun 04, 2016 10:56
--- NOTE | 2016-06-04 11:01 | PDOC ---
Renal-Progress Notes Vitals Vitals Vital Signs Date Time Temp Pulse Resp B/P Pulse Ox O2 Delivery O2 Flow Rate FiO2 06/04/16 09:42 71 121/69 06/04/16 08:00 Room Air 06/04/16 07:55 97.4 20 94 97.4 Weight Weight [ ] I.O. Intake and Output Intake and Output 06/04/16 07:00 Intake Total 1520 ml Output Total 1570 ml Balance -50 ml Intake Oral 1520 ml Output Urine Total 1570 ml # Bowel Movements 1 Labs Labs Laboratory Tests Test 06/03/16 12:07 06/03/16 17:28 06/03/16 20:51 06/04/16 03:50 Glucose (Fingerstick) 176mg/dL (70-99) 144mg/dL (70-99) 203mg/dL (70-99) White Blood Count 11.7x10^3/uL (4.0-11.0) Red Blood Count 3.20x10^6/uL (4.30-5.70) Hemoglobin 10.0g/dL (13.0-17.5) Hematocrit 31.6% (39.0-53.0) Mean Corpuscular Volume 99fL (79-100) Mean Corpuscular Hemoglobin 31pg (25-35) Mean Corpuscular Hemoglobin Concent 32g/dL (31-37) Red Cell Distribution Width 16.8% (11.5-14.5) Platelet Count 185x10^3/uL (140-400) Neutrophils (%) (Auto) 81% (31-73) Lymphocytes (%) (Auto) 10% (24-48) Monocytes (%) (Auto) 7% (0-9) Eosinophils (%) (Auto) 2% (0-3) Basophils (%) (Auto) 1% (0-3) Neutrophils # (Auto) 9.4x10^3uL (1.8-7.7) Lymphocytes # (Auto) 1.1x10^3/uL (1.0-4.8) Monocytes # (Auto) 0.8x10^3/uL (0.0-1.1) Eosinophils # (Auto) 0.2x10^3/uL (0.0-0.7) Basophils # (Auto) 0.1x10^3/uL (0.0-0.2) Sodium Level 147mmol/L (136-145) Potassium Level 3.3mmol/L (3.5-5.1) Chloride Level 110mmol/L (98-107) Carbon Dioxide Level 21mmol/L (21-32) Anion Gap 16 (6-14) Blood Urea Nitrogen 61mg/dL (8-26) Creatinine 3.2mg/dL (0.7-1.3) Estimated GFR (Cockcroft-Gault) 19.4 BUN/Creatinine Ratio 19 (6-20) Glucose Level 139mg/dL (70-99) Calcium Level 8.7mg/dL (8.5-10.1) Phosphorus Level 4.4mg/dL (2.6-4.7) Magnesium Level 2.1mg/dL (1.8-2.4) Total Bilirubin 0.5mg/dL (0.2-1.0) Aspartate Amino Transf (AST/SGOT) 14U/L (15-37) Alanine Aminotransferase (ALT/SGPT) 20U/L (16-63) Alkaline Phosphatase 107U/L (46-116) Troponin I Quantitative 0.083ng/mL (0.000-0.055) Total Protein 6.5g/dL (6.4-8.2) Albumin 2.9g/dL (3.4-5.0) Albumin/Globulin Ratio 0.8 (1.0-1.7) Test 06/04/16 07:58 Glucose (Fingerstick) 110mg/dL (70-99) Assessment Assessment IMP CHF-SYSTOLIC AND RECURRENT CKD STAGE 4 TO 5 WITH CR OF 3.0 AT BASELINE FROM LAST YEAR MILD HYPOKALEMIA ANEMIA PROTEINURIA-ABOUT 2GM A DAY DM II - ON INSULIN HX OF LEFT RENAL MASS PLAN CONT WITH LASIX CONT WITH GTT K REPLACED ECHOCARDIOGRAM TODAY CHECK 24 HR URINE WILL FOLLOW WILL NEED TO CONSIDER HD SIGIFREDO CLARK MD Jun 04, 2016 11:01
--- NOTE | 2016-06-04 15:31 | CARD ---
APPROVED REPORT EXAM: Two-dimensional and M-mode echocardiogram with Doppler and color Doppler. Other Information Quality : GoodHR: 66bpm Rhythm : Arrhythmia noted INDICATION Congestive Heart Failure Elevated troponins 2D DIMENSIONS RVDd4.4 (2.9-3.5cm)Left Atrium(2D)6.0 (1.6-4.0cm) IVSd1.8 (0.7-1.1cm)Aortic Root(2D)3.2 (2.0-3.7cm) LVDd5.9 (3.9-5.9cm)LVOT Diameter2.3 (1.8-2.4cm) PWd1.3 (0.7-1.1cm)LVDs5.6 (2.5-4.0cm) FS (%) 4.8 %SV18.4 ml Aortic Valve AoV Peak Curt.139.5cm/sAoV VTI20.8cm AO Peak GR.7.8mmHgLVOT Peak Curt.90.0cm/s AO Mean GR.4mmHgAVA (VMAX)2.68cm2 Mitral Valve MV E Peak Gr.72mmHgMV E Mean Gr.1mmHg Pulmonary Valve PV Peak Zrlkaxft23.7cm/s Tricuspid Valve TR P. Pjdgkzvl466gz/sTR Peak Gr.37mmHg Pulmonary Vein S1 Oaxkjepd17.4cm/sD2 Vabhtkri31.1cm/s LEFT VENTRICLE The Left Ventricle is mildly dilated. There is mild concentric left ventricular hypertrophy. Left gemini tricle systolic function is severely impaired. The Ejection Fraction is 20-25%. There is severe left ventricular global hypokinesis. There is a flattened septum consistent with right ventricle volume ov erload. Unable to assesss the left ventricular diastolic function due to arrhythmia. No left ventricl e thrombus noted on this study. RIGHT VENTRICLE The right ventricle is moderately dilated. There is normal right ventricular wall thickness. Systolic function is mildly reduced. ATRIA The left atrium is severely dilated. The right atrium is moderately dilated. The interatrial septum i s intact with no evidence for an atrial septal defect or patent foramen ovale as noted on 2-D or Dopp ler imaging. AORTIC VALVE The aortic valve is moderately sclerotic. Doppler and Color Flow revealed no significant aortic regur gitation. There is no significant aortic valvular stenosis. MITRAL VALVE Mitral annular calcification is mild. The mitral valve leaflets are thickened. A mild posterior leafl et mitral valve prolapse is present. There is no mitral valve stenosis. Doppler and Color Flow reveal ed mild to moderate mitral regurgitation. TRICUSPID VALVE The tricuspid valve is normal in structure and function. Doppler and Color Flow revealed moderate tri cuspid regurgitation. The pulmonary artery systolic pressure is estimated at 50-60 mmHg. There is mod erate pulmonary hypertension. PULMONIC VALVE The pulmonary valve is normal in structure and function. Doppler and Color Flow revealed mild pulmoni c valvular regurgitation. GREAT VESSELS The aortic root is normal in size. The ascending aorta is normal in size. The pulmonary artery is nor mal. The IVC is dilated and collapses <50% with inspiration. PERICARDIAL EFFUSION There is a small loculated posterior pericardial effusion. Critical Notification Critical Value: No <Conclusion> Left ventricle systolic function is severely impaired. The Ejection Fraction is 20-25%. There is a flattened septum consistent with right ventricle volume overload. The left atrium is severely dilated. Mild to moderate mitral regurgitation. Moderate tricuspid regurgitation. The pulmonary artery systolic pressure is estimated at 50-60 mmHg. There is moderate pulmonary hypertension. There is a small loculated posterior pericardial effusion.
[2016-06-04] MEDS: HYDROCODONE/APAP 5/325MG TABLET. PO PRN (22:17)
[2016-06-04] MEDS: ATORVASTATIN CALCIUM 10 MG TABLET. PO SCH (22:19)
[2016-06-04] MEDS: INSULIN DETEMIR 300 UNITS/3 ML INSULN.PEN. SQ SCH (22:22)
[2016-06-05 02:50] VITALS: BP 108/88
[2016-06-05 04:31] LABS: BASO # 0.1 x10^3/uL (0.0-0.2); BASO % 1 % (0-3); EOS % 2 % (0-3); HEMATOCRIT 34.2 % (39.0-53.0); HEMOGLOBIN 10.7 g/dL (13.0-17.5); LYMPH # 1.6 x10^3/uL (1.0-4.8); LYMPH % 14 % (24-48); MEAN CORPUSCULAR HEMOGLOBIN 31 pg (25-35); MEAN CORPUSCULAR HGB CONC 31 g/dL (31-37); MEAN CORPUSCULAR VOLUME 100 fL (79-100); MONO % 7 % (0-9); NEUT % 77 % (31-73); PLATELET COUNT 220 x10^3/uL (140-400); RED BLOOD COUNT 3.43 x10^6/uL (4.30-5.70); RED CELL DISTRIBUTION WIDTH 17.5 % (11.5-14.5); WHITE BLOOD COUNT 12.1 x10^3/uL (4.0-11.0)
[2016-06-05 04:53] LABS: CALCIUM 8.8 mg/dL (8.5-10.1); CREATININE 3.4 mg/dL (0.7-1.3); POTASSIUM 3.8 mmol/L (3.5-5.1)
[2016-06-05 07:57] VITALS: BP 119/71
[2016-06-05] MEDS: INSULIN ASPART 300 UNITS/3 ML INSULN.PEN SQ SCH ×3 (08:00→18:02)
--- NOTE | 2016-06-05 08:24 | CONS ---
DATE OF CONSULTATION: 06/04/2016 MEDICAL ONCOLOGY CONSULTATION REPORT REQUESTING PHYSICIAN: Dr. Marcus Rodriguez. 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 HISTORY OF PRESENT ILLNESS: The patient is a 70-year-old gentleman who was noted to have an incidental mass in the left kidney in 2013. He underwent an ultrasound on 06/27/2013 that revealed a 3.1-cm mass. MRI on 06/29/2013 revealed a mass in the lower pole of the left kidney measuring 2.8 cm. Ultrasound in 04/2015 revealed interval increase in size up to 4.1 cm. Had a followup ultrasound in 03/2016, revealed that the mass was now 4.[address] or MRI could not be done because of poor renal function. He was evaluated by Dr. Heather Almonte at [facility], Urology Department. Biopsy was recommended. He underwent biopsy of the left renal mass on 05/02/2016 by Interventional Radiology and this revealed papillary renal cell carcinoma grade 2. The patient is scheduled to follow with Dr. Almonte regarding further management options. The patient is now admitted to [facility] on 06/02/2016 for congestive heart failure and I was asked to address the renal cell carcinoma. PAST MEDICAL HISTORY: Congestive heart failure, hyperlipidemia, hypertension, diabetes, Charcot joints, arthritis, gout, hypertension, insomnia, renal cell carcinoma as described above. SOCIAL HISTORY: No smoking or alcohol abuse. FAMILY HISTORY: Positive for diabetes. REVIEW OF SYSTEMS: A 12-point review of system was performed. Pertinent positives are mentioned in the history of present illness. Rest of the system review is negative. PHYSICAL EXAMINATION: GENERAL APPEARANCE: The patient is a 70-year-old gentleman who is well developed, well nourished and in no acute cardiorespiratory distress. VITAL SIGNS: Blood pressure 121/69 and temperature 97.4. HEAD: Atraumatic, normocephalic. EYES: No icterus. NECK: Supple. CHEST: Bilaterally symmetrical. No crepitations or rhonchi heard. HEART: S1 and S2 normal. ABDOMEN: Soft and nontender. CENTRAL NERVOUS SYSTEM: No focal deficits. LYMPHATICS: No lymphadenopathy. SKIN: No rashes. PSYCHOLOGIC: Mood and affect are appropriate. MUSCULOSKELETAL: No joint effusions. LABORATORY DATA: WBC 11.7, hemoglobin 10, platelet count 185. Creatinine 3.2. IMPRESSION AND PLAN: 1. Renal cell carcinoma of the left kidney, diagnosed via biopsy on 05/02/2016. 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 I obtained records from [facility]. I discussed in detail with the patient regarding the treatment for renal cell carcinoma. Standard management would be surgical resection. I have recommended urology consultation for further management. The patient has already been followed by Urology since 2013 and he has an appointment to see Dr. Heather Almonte at Urology for further management. I also mentioned to him that there is no role for adjuvant radiation therapy or chemotherapy. I would advice that he continue to follow up with Dr. Almonte for management and then surveillance. 2. Congestive heart failure. Appreciate Cardiology consultation. 3. Chronic kidney disease. Appreciate Nephrology consultation. He has stage IV-V chronic kidney disease. Hemodialysis is being considered. AGUSTIN LENNON MD DR: SALUD/vikki JOB#: [id number] / [id number] MARCUS Pool DO
[2016-06-05] MEDS: ALLOPURINOL 100 MG TABLET. PO SCH (08:40)
[2016-06-05] MEDS: HYDRALAZINE 25 MG TABLET PO SCH ×3 (08:40→20:24)
[2016-06-05] MEDS: FUROSEMIDE 40 MG/4 ML VIAL IVP SCH ×2 (08:40→14:11)
[2016-06-05] MEDS: DABIGATRAN ETEXILATE 75 MG CAPSULE. PO SCH ×2 (08:41→20:24)
[2016-06-05] MEDS: METOPROLOL SUCC 24HR ER 50 MG TAB.ER.24H. PO SCH (08:41)
[2016-06-05] MEDS: LOSARTAN POTASSIUM 50 MG TABLET. PO SCH (08:41)
[2016-06-05] MEDS: POTASSIUM CHLORIDE 20 MEQ TABLET.ER. PO SCH ×2 (08:42→20:25)
[2016-06-05] MEDS: DILTIAZEM HCL 120 MG CAP.ER.24H PO SCH (08:42)
--- NOTE | 2016-06-05 09:06 | PDOC ---
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 HISTORY OF PRESENT ILLNESS: The patient is a 70-year-old gentleman who was noted to have an incidental mass in the left kidney in 2013. He underwent an ultrasound on 06/27/2013 that revealed a 3.1-cm mass. MRI on 06/29/2013 revealed a mass in the lower pole of the left kidney measuring 2.8 cm. Ultrasound in 04/2015 revealed interval increase in size up to 4.1 cm. Had a followup ultrasound in 03/2016, revealed that the mass was now 4.[address] or MRI could not be done because of poor renal function. He was evaluated by Dr. Heather Almonte at [facility], Urology Department. Biopsy was recommended. He underwent biopsy of the left renal mass on 05/02/2016 by Interventional Radiology and this revealed papillary renal cell carcinoma grade 2. The patient is scheduled to follow with Dr. Almonte regarding further management options. The patient is now admitted to [facility] on 06/02/2016 for congestive heart failure and I was asked to address the renal cell carcinoma. PAST MEDICAL HISTORY: Congestive heart failure, hyperlipidemia, hypertension, diabetes, Charcot joints, arthritis, gout, hypertension, insomnia, renal cell carcinoma as described above. REVIEW OF SYSTEMS: Dyspnea better PHYSICAL EXAMINATION: GENERAL APPEARANCE: The patient is a 70-year-old gentleman who is well developed, well nourished and in no acute cardiorespiratory distress. CHEST: Bilaterally symmetrical. No crepitations or rhonchi heard. HEART: S1 and S2 normal. ABDOMEN: Soft and nontender. LABORATORY DATA: WBC 11.7, hemoglobin 10, platelet count 185. Creatinine 3.2. IMPRESSION AND PLAN: 1. Renal cell carcinoma of the left kidney, diagnosed via biopsy on 05/02/2016. 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 I obtained records from [facility]. I discussed in detail with the patient regarding the treatment for renal cell carcinoma. Standard management would be surgical resection. I have recommended urology consultation for further management. The patient has already been followed by Urology since 2013 and he has an appointment to see Dr. Heather Almonte at on 06/08/16 Urology for further management. 2. Congestive heart failure. Appreciate Cardiology consultation. Dyspnea improving. 3. Chronic kidney disease. Appreciate Nephrology consultation. He has stage IV-V chronic kidney disease. Hemodialysis is being considered. AGUSTIN LENNON MD Jun 05, 2016 09:06
--- NOTE | 2016-06-05 10:12 | PDOC ---
Renal-Progress Notes Subjective Notes Notes NO NEW COMPLAINTS History of Present Illness Hx of present illness STABLE Vitals Vitals Vital Signs Date Time Temp Pulse Resp B/P Pulse Ox O2 Delivery O2 Flow Rate FiO2 06/05/16 08:42 72 119/71 06/05/16 07:57 97.8 20 97 Room Air 97.8 Weight Weight [ ] I.O. Intake and Output Intake and Output 06/05/16 07:00 Intake Total 1240 ml Output Total 550 ml Balance 690 ml Intake Oral 1240 ml Output Urine Total 550 ml Labs Labs Laboratory Tests Test 06/04/16 12:05 06/04/16 16:39 06/04/16 20:48 06/05/16 03:54 Glucose (Fingerstick) 176mg/dL (70-99) 143mg/dL (70-99) 200mg/dL (70-99) White Blood Count 12.1x10^3/uL (4.0-11.0) Red Blood Count 3.43x10^6/uL (4.30-5.70) Hemoglobin 10.7g/dL (13.0-17.5) Hematocrit 34.2% (39.0-53.0) Mean Corpuscular Volume 100fL (79-100) Mean Corpuscular Hemoglobin 31pg (25-35) Mean Corpuscular Hemoglobin Concent 31g/dL (31-37) Red Cell Distribution Width 17.5% (11.5-14.5) Platelet Count 220x10^3/uL (140-400) Neutrophils (%) (Auto) 77% (31-73) Lymphocytes (%) (Auto) 14% (24-48) Monocytes (%) (Auto) 7% (0-9) Eosinophils (%) (Auto) 2% (0-3) Basophils (%) (Auto) 1% (0-3) Neutrophils # (Auto) 9.3x10^3uL (1.8-7.7) Lymphocytes # (Auto) 1.6x10^3/uL (1.0-4.8) Monocytes # (Auto) 0.8x10^3/uL (0.0-1.1) Eosinophils # (Auto) 0.2x10^3/uL (0.0-0.7) Basophils # (Auto) 0.1x10^3/uL (0.0-0.2) Sodium Level 144mmol/L (136-145) Potassium Level 3.8mmol/L (3.5-5.1) Chloride Level 110mmol/L (98-107) Carbon Dioxide Level 21mmol/L (21-32) Anion Gap 13 (6-14) Blood Urea Nitrogen 64mg/dL (8-26) Creatinine 3.4mg/dL (0.7-1.3) Estimated GFR (Cockcroft-Gault) 18.0 Glucose Level 140mg/dL (70-99) Calcium Level 8.8mg/dL (8.5-10.1) Magnesium Level 2.2mg/dL (1.8-2.4) Test 06/05/16 08:07 Glucose (Fingerstick) 122mg/dL (70-99) Physical Exam Neurology: alert, oriented, follow commands Assessment Assessment IMP CHF-SYSTOLIC AND RECURRENT CKD STAGE 4 TO 5 WITH CR OF 3.0 AT BASELINE FROM LAST YEAR MILD HYPOKALEMIA-BETTER ANEMIA PROTEINURIA-ABOUT 2GM A DAY DM II - ON INSULIN HX OF LEFT RENAL CA-FOLLOWED AT [facility] PLAN CONT WITH LASIX CONT WITH GTT K REPLACEMENT NEEDED 24 HR URINE RESULT PENDING WILL MOST LIKELY END UP ON HD D/W PT SIGIFREDO CLARK MD Jun 05, 2016 10:11
--- NOTE | 2016-06-05 11:02 | PDOC ---
EVELYN FARFAN QI SPECIALIST 06/05/16 1102: CARDIO Progress Notes Date and Time Date of Service 06/05/16 Time of Evaluation 1050 Subjective Subjective: No Chest Pain, No shortness of breath, No Palpitations, Other (no complaints. SOA "about the same") Vitals Vitals Vital Signs Date Time Temp Pulse Resp B/P Pulse Ox O2 Delivery O2 Flow Rate FiO2 06/05/16 08:42 72 119/71 06/05/16 07:57 97.8 20 97 Room Air 97.8 Weight Weight [ ] Input and Output Intake and Output Intake and Output 06/05/16 07:00 Intake Total 1240 ml Output Total 550 ml Balance 690 ml Intake Oral 1240 ml Output Urine Total 550 ml Laboratory Labs Laboratory Tests Test 06/04/16 12:05 06/04/16 16:39 06/04/16 20:48 06/05/16 03:54 Glucose (Fingerstick) 176mg/dL (70-99) 143mg/dL (70-99) 200mg/dL (70-99) White Blood Count 12.1x10^3/uL (4.0-11.0) Red Blood Count 3.43x10^6/uL (4.30-5.70) Hemoglobin 10.7g/dL (13.0-17.5) Hematocrit 34.2% (39.0-53.0) Mean Corpuscular Volume 100fL (79-100) Mean Corpuscular Hemoglobin 31pg (25-35) Mean Corpuscular Hemoglobin Concent 31g/dL (31-37) Red Cell Distribution Width 17.5% (11.5-14.5) Platelet Count 220x10^3/uL (140-400) Neutrophils (%) (Auto) 77% (31-73) Lymphocytes (%) (Auto) 14% (24-48) Monocytes (%) (Auto) 7% (0-9) Eosinophils (%) (Auto) 2% (0-3) Basophils (%) (Auto) 1% (0-3) Neutrophils # (Auto) 9.3x10^3uL (1.8-7.7) Lymphocytes # (Auto) 1.6x10^3/uL (1.0-4.8) Monocytes # (Auto) 0.8x10^3/uL (0.0-1.1) Eosinophils # (Auto) 0.2x10^3/uL (0.0-0.7) Basophils # (Auto) 0.1x10^3/uL (0.0-0.2) Sodium Level 144mmol/L (136-145) Potassium Level 3.8mmol/L (3.5-5.1) Chloride Level 110mmol/L (98-107) Carbon Dioxide Level 21mmol/L (21-32) Anion Gap 13 (6-14) Blood Urea Nitrogen 64mg/dL (8-26) Creatinine 3.4mg/dL (0.7-1.3) Estimated GFR (Cockcroft-Gault) 18.0 Glucose Level 140mg/dL (70-99) Calcium Level 8.8mg/dL (8.5-10.1) Magnesium Level 2.2mg/dL (1.8-2.4) Test 06/05/16 08:07 Glucose (Fingerstick) 122mg/dL (70-99) Physical Exam HEENT: Neck Supple W Full Motion Chest: Symmetric LUNGS: Clear to Auscultation, Other (diminished bases ) Heart: S1S2, irregularly irregular, other (tele AFIB) Abdomen: Soft N/T Extremities: Other (2+ pitting bilateral LE persists ) Neurology: alert, oriented, follow commands Assessment Assessment 1. 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 Moderate LE edema persists. Consider for dobutamine infusion following MPI- will discuss with primary cardiology. echo in 07/2015 showed LVEF 45-50%. Repeat echo shows further decreased LV function with an EF of 25-30%. Will proceed with 2-day MPI to r/o contributing ischemia. Optimization therapy. Repeat echo in 3-4 months to assess need for AICD in prevention of SCD. 2. Hypertension well-controlled. continue with current therapy 3. Permanent AFIB intermittently bradycardiac, will stop Cardizem given depressed LV function. if tachycardia occurs, could consider digoxin QOD but caution use with RI Cr. clearance 37.8, continue Pradaxa for stroke prophylaxis. 4. Mildly elevated troponin peak 0.094. likely type II, demand ischemia in the setting of SARAH/CKD MPI to r/o ischemia 5. h/o mild nonobstructive CAD stable. CP free. Doubt ACS. continue medical management 6. Hyperlipidemia statin therapy. 7. Diabetes type 2 per PCP 8. SARAH with CKD 4 Cr now 3.4 ? need for HD per nephrology 9. Renal cell carcinoma LEX BAZZI MD 06/06/16 1619: CARDIO Progress Notes Assessment Assessment Patient seen and examined 06/05/16. Agree with CHALK MACHINE OPERATOR's assessment and plan. Start Zaroxolyn to augment diuresis with Lasix. Plan for Lexiscan nuclear stress test to rule out ischemia. If this is negative, we will consider starting dobutamine infusion for inotropic support. EVELYN FARFAN APRN Jun 05, 2016 11:02 LEX BAZZI MD Jun 06, 2016 16:19
[2016-06-05 11:07] VITALS: BP 124/74
--- NOTE | 2016-06-05 11:50 | PDOC ---
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 Discussed plan of care and subspecialist input with patient. He continues to feel better and has no new complaints. Vitals Vitals Vital Signs Date Time Temp Pulse Resp B/P Pulse Ox O2 Delivery O2 Flow Rate FiO2 06/05/16 11:07 98.0 54 20 124/74 97 Room Air 98.0 Physical Exam General: Alert, Oriented X3, Cooperative, No acute distress Heart: Normal S1, Normal S2, Other (soft S3) Lungs: Clear Abdomen: Soft, No tenderness Extremities: Other (less edema today; b/l charcot foot deformity) Skin: Other (ecchymosis left arm ) Labs LABS Laboratory Tests Test 06/04/16 12:05 06/04/16 16:39 06/04/16 20:48 06/05/16 03:54 Glucose (Fingerstick) 176mg/dL (70-99) 143mg/dL (70-99) 200mg/dL (70-99) White Blood Count 12.1x10^3/uL (4.0-11.0) Red Blood Count 3.43x10^6/uL (4.30-5.70) Hemoglobin 10.7g/dL (13.0-17.5) Hematocrit 34.2% (39.0-53.0) Mean Corpuscular Volume 100fL (79-100) Mean Corpuscular Hemoglobin 31pg (25-35) Mean Corpuscular Hemoglobin Concent 31g/dL (31-37) Red Cell Distribution Width 17.5% (11.5-14.5) Platelet Count 220x10^3/uL (140-400) Neutrophils (%) (Auto) 77% (31-73) Lymphocytes (%) (Auto) 14% (24-48) Monocytes (%) (Auto) 7% (0-9) Eosinophils (%) (Auto) 2% (0-3) Basophils (%) (Auto) 1% (0-3) Neutrophils # (Auto) 9.3x10^3uL (1.8-7.7) Lymphocytes # (Auto) 1.6x10^3/uL (1.0-4.8) Monocytes # (Auto) 0.8x10^3/uL (0.0-1.1) Eosinophils # (Auto) 0.2x10^3/uL (0.0-0.7) Basophils # (Auto) 0.1x10^3/uL (0.0-0.2) Sodium Level 144mmol/L (136-145) Potassium Level 3.8mmol/L (3.5-5.1) Chloride Level 110mmol/L (98-107) Carbon Dioxide Level 21mmol/L (21-32) Anion Gap 13 (6-14) Blood Urea Nitrogen 64mg/dL (8-26) Creatinine 3.4mg/dL (0.7-1.3) Estimated GFR (Cockcroft-Gault) 18.0 Glucose Level 140mg/dL (70-99) Calcium Level 8.8mg/dL (8.5-10.1) Magnesium Level 2.2mg/dL (1.8-2.4) Test 06/05/16 08:07 Glucose (Fingerstick) 122mg/dL (70-99) Review of Systems Review of Systems Denies chest pain and SOA Denies nausea, vomiting, fevers, and chills Assessment and Plan Assessmemt and Plan Assessment: -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 -Renal cell carcinoma -Hypokalemia -Hypertension -Permanent atrial fibrillation -Slight troponin level elevation -Hyperlipidemia -Diabetes type 2 -Chronic kidney disease -Gout -Arthritis -Insomnia Plan -Continue gentle diuresis, monitor BUN/creatinine -Potassium improved today -BUN and Cr increasing--nephrology considering hemodialysis -Continue cardiac monitoring -Continue rate control medications for a-fib and Pradaxa for stroke prophylaxis -Continue statin therapy for hyperlipidemia -Cardiology following -Nephrology following for chronic kidney disease -Continue Allopurinol for gout -Continue insulin for for DM -PT/OT -Follow up appointment with urology at (Dr. Heather Almonte) on 06/08/2016 for further RCC management -Appreciate subspecialist input Problems: Comment Review of Relevant I have reviewed the following items jennifer (where applicable) has been applied. Labs Laboratory Tests Test 06/03/16 12:07 06/03/16 17:28 06/03/16 20:51 06/04/16 03:50 Glucose (Fingerstick) 176mg/dL (70-99) 144mg/dL (70-99) 203mg/dL (70-99) White Blood Count 11.7x10^3/uL (4.0-11.0) Red Blood Count 3.20x10^6/uL (4.30-5.70) Hemoglobin 10.0g/dL (13.0-17.5) Hematocrit 31.6% (39.0-53.0) Mean Corpuscular Volume 99fL (79-100) Mean Corpuscular Hemoglobin 31pg (25-35) Mean Corpuscular Hemoglobin Concent 32g/dL (31-37) Red Cell Distribution Width 16.8% (11.5-14.5) Platelet Count 185x10^3/uL (140-400) Neutrophils (%) (Auto) 81% (31-73) Lymphocytes (%) (Auto) 10% (24-48) Monocytes (%) (Auto) 7% (0-9) Eosinophils (%) (Auto) 2% (0-3) Basophils (%) (Auto) 1% (0-3) Neutrophils # (Auto) 9.4x10^3uL (1.8-7.7) Lymphocytes # (Auto) 1.1x10^3/uL (1.0-4.8) Monocytes # (Auto) 0.8x10^3/uL (0.0-1.1) Eosinophils # (Auto) 0.2x10^3/uL (0.0-0.7) Basophils # (Auto) 0.1x10^3/uL (0.0-0.2) Sodium Level 147mmol/L (136-145) Potassium Level 3.3mmol/L (3.5-5.1) Chloride Level 110mmol/L (98-107) Carbon Dioxide Level 21mmol/L (21-32) Anion Gap 16 (6-14) Blood Urea Nitrogen 61mg/dL (8-26) Creatinine 3.2mg/dL (0.7-1.3) Estimated GFR (Cockcroft-Gault) 19.4 BUN/Creatinine Ratio 19 (6-20) Glucose Level 139mg/dL (70-99) Calcium Level 8.7mg/dL (8.5-10.1) Phosphorus Level 4.4mg/dL (2.6-4.7) Magnesium Level 2.1mg/dL (1.8-2.4) Total Bilirubin 0.5mg/dL (0.2-1.0) Aspartate Amino Transf (AST/SGOT) 14U/L (15-37) Alanine Aminotransferase (ALT/SGPT) 20U/L (16-63) Alkaline Phosphatase 107U/L (46-116) Troponin I Quantitative 0.083ng/mL (0.000-0.055) Total Protein 6.5g/dL (6.4-8.2) Albumin 2.9g/dL (3.4-5.0) Albumin/Globulin Ratio 0.8 (1.0-1.7) Test 06/04/16 07:58 06/04/16 12:05 06/04/16 16:39 06/04/16 20:48 Glucose (Fingerstick) 110mg/dL (70-99) 176mg/dL (70-99) 143mg/dL (70-99) 200mg/dL (70-99) Test 06/05/16 03:54 06/05/16 08:07 White Blood Count 12.1x10^3/uL (4.0-11.0) Red Blood Count 3.43x10^6/uL (4.30-5.70) Hemoglobin 10.7g/dL (13.0-17.5) Hematocrit 34.2% (39.0-53.0) Mean Corpuscular Volume 100fL (79-100) Mean Corpuscular Hemoglobin 31pg (25-35) Mean Corpuscular Hemoglobin Concent 31g/dL (31-37) Red Cell Distribution Width 17.5% (11.5-14.5) Platelet Count 220x10^3/uL (140-400) Neutrophils (%) (Auto) 77% (31-73) Lymphocytes (%) (Auto) 14% (24-48) Monocytes (%) (Auto) 7% (0-9) Eosinophils (%) (Auto) 2% (0-3) Basophils (%) (Auto) 1% (0-3) Neutrophils # (Auto) 9.3x10^3uL (1.8-7.7) Lymphocytes # (Auto) 1.6x10^3/uL (1.0-4.8) Monocytes # (Auto) 0.8x10^3/uL (0.0-1.1) Eosinophils # (Auto) 0.2x10^3/uL (0.0-0.7) Basophils # (Auto) 0.1x10^3/uL (0.0-0.2) Sodium Level 144mmol/L (136-145) Potassium Level 3.8mmol/L (3.5-5.1) Chloride Level 110mmol/L (98-107) Carbon Dioxide Level 21mmol/L (21-32) Anion Gap 13 (6-14) Blood Urea Nitrogen 64mg/dL (8-26) Creatinine 3.4mg/dL (0.7-1.3) Estimated GFR (Cockcroft-Gault) 18.0 Glucose Level 140mg/dL (70-99) Calcium Level 8.8mg/dL (8.5-10.1) Magnesium Level 2.2mg/dL (1.8-2.4) Glucose (Fingerstick) 122mg/dL (70-99) Laboratory Tests Test 06/04/16 12:05 06/04/16 16:39 06/04/16 20:48 06/05/16 03:54 Glucose (Fingerstick) 176mg/dL (70-99) 143mg/dL (70-99) 200mg/dL (70-99) White Blood Count 12.1x10^3/uL (4.0-11.0) Red Blood Count 3.43x10^6/uL (4.30-5.70) Hemoglobin 10.7g/dL (13.0-17.5) Hematocrit 34.2% (39.0-53.0) Mean Corpuscular Volume 100fL (79-100) Mean Corpuscular Hemoglobin 31pg (25-35) Mean Corpuscular Hemoglobin Concent 31g/dL (31-37) Red Cell Distribution Width 17.5% (11.5-14.5) Platelet Count 220x10^3/uL (140-400) Neutrophils (%) (Auto) 77% (31-73) Lymphocytes (%) (Auto) 14% (24-48) Monocytes (%) (Auto) 7% (0-9) Eosinophils (%) (Auto) 2% (0-3) Basophils (%) (Auto) 1% (0-3) Neutrophils # (Auto) 9.3x10^3uL (1.8-7.7) Lymphocytes # (Auto) 1.6x10^3/uL (1.0-4.8) Monocytes # (Auto) 0.8x10^3/uL (0.0-1.1) Eosinophils # (Auto) 0.2x10^3/uL (0.0-0.7) Basophils # (Auto) 0.1x10^3/uL (0.0-0.2) Sodium Level 144mmol/L (136-145) Potassium Level 3.8mmol/L (3.5-5.1) Chloride Level 110mmol/L (98-107) Carbon Dioxide Level 21mmol/L (21-32) Anion Gap 13 (6-14) Blood Urea Nitrogen 64mg/dL (8-26) Creatinine 3.4mg/dL (0.7-1.3) Estimated GFR (Cockcroft-Gault) 18.0 Glucose Level 140mg/dL (70-99) Calcium Level 8.8mg/dL (8.5-10.1) Magnesium Level 2.2mg/dL (1.8-2.4) Test 06/05/16 08:07 Glucose (Fingerstick) 122mg/dL (70-99) Medications Current Medications Heparin Sodium (Porcine) 5,000 unit Q8HRS SQ Last administered on 06/04/16 13: 44; Start 06/03/16 at 06:00; Stop 06/04/16 at 14:34; Status DC Furosemide (Lasix) 40 mg BID92 IVP Last administered on 06/05/16 08:40; Start 06/03/16 at 09:00 Allopurinol (Zyloprim) 200 mg DAILY PO Last administered on 06/05/16 08:40; Start 06/03/16 at 15:00 Dabigatran (Pradaxa) 75 mg BID PO Last administered on 06/05/16 08:41; Start 06/03/16 at 15:00 Diltiazem HCl (Cardizem 24hr Cd) 120 mg DAILY PO Last administered on 08:42; Start 06/03/16 at 15:00 Furosemide (Lasix) 40 mg BID92 PO ; Start 06/03/16 at 15:00; Stop 06/03/16 at 16 :42; Status DC Hydralazine HCl (Apresoline) 75 mg TID PO Last administered on 06/05/16 08:40 ; Start 06/03/16 at 15:00 Metoprolol Succinate (Toprol Xl) 50 mg DAILY PO Last administered on 06/05/16 08:41; Start 06/03/16 at 15:00 Non-Formulary Medication 100 unit prn SQ ; Start 06/03/16 at 14:15; Stop at 16:02; Status DC Non-Formulary Medication 100 unit prn SQ ; Start 06/03/16 at 14:15; Status UNV Losartan Potassium (Cozaar) 100 mg DAILY PO Last administered on 06/05/16 08: 41; Start 06/03/16 at 15:00 Potassium Chloride (Klor-Con) 20 meq DAILYWBKFT PO ; Start 06/03/16 at 15:00; Stop 06/03/16 at 16:42; Status DC Atorvastatin Calcium (Lipitor) 5 mg QHS PO Last administered on 06/04/16 22:19 ; Start 06/03/16 at 21:00 Torsemide (Demadex) 100 mg DAILY PO ; Start 06/03/16 at 15:00; Stop 06/03/16 at 16:42; Status DC Insulin Aspart (Novolog) 0-5 UNITS TIDWMEALS SQ Last administered on 06/04/16 13:43; Start 06/03/16 at 17:00 Dextrose 12.5 gm PRN Q15MIN PRN IV SEE COMMENTS; Start 06/03/16 at 16:00 Insulin Detemir (Levemir) 25 units QHS SQ Last administered on 06/04/16 22:22 ; Start 06/03/16 at 21:00 Potassium Chloride (Klor-Con) 20 meq BID PO Last administered on 06/05/16 08: 42; Start 06/03/16 at 21:00 Potassium Chloride (Klor-Con) 40 meq 1X ONCE PO Last administered on 11:45; Start 06/04/16 at 10:30; Stop 06/04/16 at 10:35; Status DC Acetaminophen/ Hydrocodone Bitart (Lortab 5/325) 1 tab PRN Q4HRS PRN PO MODERATE PAIN Last administered on 06/04/16 22:17; Start 06/04/16 at 22:00 Active Scripts Active Reported Furosemide 40 Mg Tablet 40 Mg PO BID Hydralazine Hcl 25 Mg Tablet 75 Mg PO TID Pradaxa (Dabigatran Etexilate Mesylate) 75 Mg Capsule 75 Mg PO BID Metolazone 2.5 Mg Tablet 2.5 Mg PO THREE TIMES A WEEK Allopurinol 100 Mg Tablet 200 Mg PO DAILY Potassium Chloride 20 Meq Tablet.er 20 Meq PO DAILY Toprol Xl (Metoprolol Succinate) 50 Mg Tab.er.24h 50 Mg PO DAILY Levemir (Insulin Detemir) 100 Unit/1 Ml Vial 25 Unit SQ QHS Losartan Potassium 100 Mg Tablet 100 Mg PO DAILY Pravastatin Sodium 20 Mg Tablet 20 Mg PO DAILY Torsemide 100 Mg Tablet 100 Mg PO DAILY Novolog (Insulin Aspart) 100 Unit/1 Ml Cartridge 100 Unit SQ PRN Diltiazem 24HR Er (Diltiazem Hcl) 120 Mg Cap.er.24h 120 Mg PO DAILY Vitals/I & O Vital Sign - Last 24 Hours 06/04/16 06/04/16 06/04/16 06/04/16 13:34 15:00 19:40 20:00 Temp 97.7 97.8 97.7 97.8 Pulse 60 57 58 Resp 20 20 B/P 130/76 126/79 121/73 Pulse Ox 95 96 O2 Delivery Room Air Room Air Room Air 06/04/16 06/04/16 06/04/16 06/04/16 22:14 22:17 23:10 23:17 Temp 97.9 97.9 Pulse 58 60 Resp 18 18 14 B/P 121/73 125/71 Pulse Ox 96 O2 Delivery Room Air Room Air Room Air 06/05/16 06/05/16 06/05/16 06/05/16 02:50 07:50 07:57 08:40 Temp 97.8 97.8 97.8 97.8 Pulse 60 58 72 Resp 18 20 B/P 108/88 119/71 119/71 Pulse Ox 98 97 O2 Delivery Room Air Room Air Room Air 06/05/16 06/05/16 06/05/16 06/05/16 08:41 08:41 08:42 11:07 Temp 98.0 98.0 Pulse 72 72 72 54 Resp 20 B/P 119/71 119/71 119/71 124/74 Pulse Ox 97 O2 Delivery Room Air Intake and Output 06/04/16 06/04/16 06/05/16 15:00 23:00 07:00 Intake Total 620 ml 620 ml Output Total 550 ml Balance 620 ml 70 ml MARCUS ROD III DO Jun 05, 2016 11:50
[2016-06-05 14:13] VITALS: BP 124/71
[2016-06-05] MEDS: METOLAZONE 2.5 MG TABLET PO SCH (17:59)
[2016-06-05 19:18] VITALS: BP 124/71
[2016-06-05] MEDS: ATORVASTATIN CALCIUM 10 MG TABLET. PO SCH (20:24)
[2016-06-05] MEDS: INSULIN DETEMIR 300 UNITS/3 ML INSULN.PEN. SQ SCH (20:30)
[2016-06-05 22:12] LABS: TOTAL SERUM CREATININE 3.28 mg/dL (0.76-1.27); TOTAL URINE CREATININE 99.5 mg/dL (Not Estab.)
[2016-06-05 22:47] VITALS: BP 121/73
[2016-06-06] VITALS (10 sets, daily range): BP systolic 100–156; BP diastolic 70–85
[2016-06-06 04:00] LABS: BASO # 0.1 x10^3/uL (0.0-0.2); BASO % 1 % (0-3); EOS % 2 % (0-3); HEMATOCRIT 36.2 % (39.0-53.0); HEMOGLOBIN 11.3 g/dL (13.0-17.5); LYMPH # 1.4 x10^3/uL (1.0-4.8); LYMPH % 11 % (24-48); MEAN CORPUSCULAR HEMOGLOBIN 31 pg (25-35); MEAN CORPUSCULAR HGB CONC 31 g/dL (31-37); MEAN CORPUSCULAR VOLUME 100 fL (79-100); MONO % 7 % (0-9); NEUT % 79 % (31-73); PLATELET COUNT 225 x10^3/uL (140-400); RED BLOOD COUNT 3.61 x10^6/uL (4.30-5.70); RED CELL DISTRIBUTION WIDTH 17.3 % (11.5-14.5); WHITE BLOOD COUNT 12.3 x10^3/uL (4.0-11.0)
[2016-06-06 04:13] LABS: CALCIUM 9.1 mg/dL (8.5-10.1); POTASSIUM 4.1 mmol/L (3.5-5.1)
[2016-06-06] MEDS: INSULIN ASPART 300 UNITS/3 ML INSULN.PEN SQ SCH ×3 (08:00→17:00)
[2016-06-06] MEDS ORDERED: REGADENOSON 0.4 MG/5 ML DISP.SYRIN. IV ONE (08:15)
[2016-06-06] MEDS: ANTI-COAG MONITOR BY PHARMACY. MC PRN ×3 (09:20→13:39)
[2016-06-06] MEDS: POTASSIUM CHLORIDE 20 MEQ TABLET.ER. PO SCH (09:48)
[2016-06-06] MEDS: FUROSEMIDE 40 MG/4 ML VIAL IVP SCH ×2 (09:49→14:39)
[2016-06-06] MEDS: LOSARTAN POTASSIUM 50 MG TABLET. PO SCH (09:49)
[2016-06-06] MEDS: HYDRALAZINE 25 MG TABLET PO SCH ×2 (09:49→14:40)
[2016-06-06] MEDS: ALLOPURINOL 100 MG TABLET. PO SCH (09:53)
[2016-06-06] MEDS: DABIGATRAN ETEXILATE 75 MG CAPSULE. PO SCH (09:53)
[2016-06-06] MEDS: METOLAZONE 2.5 MG TABLET PO SCH (09:53)
[2016-06-06] MEDS: METOPROLOL SUCC 24HR ER 50 MG TAB.ER.24H. PO SCH (09:54)
--- NOTE | 2016-06-06 10:33 | PDOC ---
Renal-Progress Notes Subjective Notes Notes STILL HAS SOME SOB History of Present Illness Hx of present illness STABLE Vitals Vitals Vital Signs Date Time Temp Pulse Resp B/P Pulse Ox O2 Delivery O2 Flow Rate FiO2 06/06/16 09:54 74 128/80 06/06/16 08:06 Room Air 06/06/16 07:17 98.1 16 98 98.1 Weight Weight [ ] I.O. Intake and Output Intake and Output 06/06/16 07:00 Intake Total 2080 ml Output Total 600 ml Balance 1480 ml Intake Oral 2080 ml Output Urine Total 600 ml Labs Labs Laboratory Tests Test 06/05/16 11:42 06/05/16 16:13 06/05/16 20:23 06/06/16 03:28 Glucose (Fingerstick) 172mg/dL (70-99) 151mg/dL (70-99) 175mg/dL (70-99) White Blood Count 12.3x10^3/uL (4.0-11.0) Red Blood Count 3.61x10^6/uL (4.30-5.70) Hemoglobin 11.3g/dL (13.0-17.5) Hematocrit 36.2% (39.0-53.0) Mean Corpuscular Volume 100fL (79-100) Mean Corpuscular Hemoglobin 31pg (25-35) Mean Corpuscular Hemoglobin Concent 31g/dL (31-37) Red Cell Distribution Width 17.3% (11.5-14.5) Platelet Count 225x10^3/uL (140-400) Neutrophils (%) (Auto) 79% (31-73) Lymphocytes (%) (Auto) 11% (24-48) Monocytes (%) (Auto) 7% (0-9) Eosinophils (%) (Auto) 2% (0-3) Basophils (%) (Auto) 1% (0-3) Neutrophils # (Auto) 9.8x10^3uL (1.8-7.7) Lymphocytes # (Auto) 1.4x10^3/uL (1.0-4.8) Monocytes # (Auto) 0.9x10^3/uL (0.0-1.1) Eosinophils # (Auto) 0.2x10^3/uL (0.0-0.7) Basophils # (Auto) 0.1x10^3/uL (0.0-0.2) Sodium Level 145mmol/L (136-145) Potassium Level 4.1mmol/L (3.5-5.1) Chloride Level 108mmol/L (98-107) Carbon Dioxide Level 23mmol/L (21-32) Anion Gap 14 (6-14) Blood Urea Nitrogen 73mg/dL (8-26) Creatinine 4.0mg/dL (0.7-1.3) Estimated GFR (Cockcroft-Gault) 15.0 Glucose Level 137mg/dL (70-99) Calcium Level 9.1mg/dL (8.5-10.1) Test 06/06/16 07:19 Glucose (Fingerstick) 117mg/dL (70-99) Review of Systems Constitutional: yes: alert, oriented, weakness Ears/Nose/Throat: Yes: no symptom reported Eyes: Yes: no symptom reported Pulmonary: Yes dyspnea Cardiovascular: Yes orthopnea, Yes edema Gastrointestional: Yes: constipation Genitourinary: Yes: no symptom reported Musculoskeletal: Yes: muscle stiffness Skin: Yes no symptom reported Physical Exam General Appearance: no apparent distress Skin: warm Respiratory: decreased breath sounds Heart: S1S2, RRR Abdomen: soft, bowel sounds present Neurology: alert, oriented, follow commands Assessment Assessment IMP CHF-SYSTOLIC AND RECURRENT CKD STAGE 4 TO 5 WITH CR OF 3.0 AT BASELINE FROM LAST YEAR SARAH WITH CR UP TO 4.0 MILD HYPOKALEMIA-BETTER ANEMIA PROTEINURIA-ABOUT 2.4 GM A DAY DM II - ON INSULIN HX OF LEFT RENAL CA-FOLLOWED AT [facility] PLAN CONT WITH LASIX K REPLACEMENT NEEDED WILL MOST LIKELY END UP ON HD SIGIFREDO CLARK MD Jun 06, 2016 10:33
[2016-06-06] MEDS ORDERED: IPRATRPIUM/ALBUTEROL 0.5/2.5MG 3 ML NEBU. NEB PRN (10:45)
--- NOTE | 2016-06-06 12:29 | PDOC ---
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 Discussed plan of care plan HD, Cr increasing, still has edema, unable to get fluid off Vitals Vitals Vital Signs Date Time Temp Pulse Resp B/P Pulse Ox O2 Delivery O2 Flow Rate FiO2 06/06/16 11:17 100 Room Air 06/06/16 11:10 98.2 66 134/72 98.2 06/06/16 07:17 16 Physical Exam General: Alert, Oriented X3, Cooperative, No acute distress Heart: Normal S1, Normal S2, No murmurs, Other ( ) Lungs: Clear Abdomen: Soft, No tenderness Extremities: No clubbing, No cyanosis, Other (persistent edema today; b/l charcot foot deformity) Skin: Other (ecchymosis left arm ) Labs LABS Laboratory Tests Test 06/05/16 16:13 06/05/16 20:23 06/06/16 03:28 06/06/16 07:19 Glucose (Fingerstick) 151mg/dL (70-99) 175mg/dL (70-99) 117mg/dL (70-99) White Blood Count 12.3x10^3/uL (4.0-11.0) Red Blood Count 3.61x10^6/uL (4.30-5.70) Hemoglobin 11.3g/dL (13.0-17.5) Hematocrit 36.2% (39.0-53.0) Mean Corpuscular Volume 100fL (79-100) Mean Corpuscular Hemoglobin 31pg (25-35) Mean Corpuscular Hemoglobin Concent 31g/dL (31-37) Red Cell Distribution Width 17.3% (11.5-14.5) Platelet Count 225x10^3/uL (140-400) Neutrophils (%) (Auto) 79% (31-73) Lymphocytes (%) (Auto) 11% (24-48) Monocytes (%) (Auto) 7% (0-9) Eosinophils (%) (Auto) 2% (0-3) Basophils (%) (Auto) 1% (0-3) Neutrophils # (Auto) 9.8x10^3uL (1.8-7.7) Lymphocytes # (Auto) 1.4x10^3/uL (1.0-4.8) Monocytes # (Auto) 0.9x10^3/uL (0.0-1.1) Eosinophils # (Auto) 0.2x10^3/uL (0.0-0.7) Basophils # (Auto) 0.1x10^3/uL (0.0-0.2) Sodium Level 145mmol/L (136-145) Potassium Level 4.1mmol/L (3.5-5.1) Chloride Level 108mmol/L (98-107) Carbon Dioxide Level 23mmol/L (21-32) Anion Gap 14 (6-14) Blood Urea Nitrogen 73mg/dL (8-26) Creatinine 4.0mg/dL (0.7-1.3) Estimated GFR (Cockcroft-Gault) 15.0 Glucose Level 137mg/dL (70-99) Calcium Level 9.1mg/dL (8.5-10.1) Test 06/06/16 11:10 Glucose (Fingerstick) 171mg/dL (70-99) Assessment and Plan Assessmemt and Plan plan HD, discussed with patient and Dr. Morgan Problems: Comment Review of Relevant I have reviewed the following items jennifer (where applicable) has been applied. Labs Laboratory Tests Test 06/04/16 13:55 06/04/16 16:39 06/04/16 20:48 06/05/16 03:54 Urine Protein 249.2mg/dL (Not Estab.) Urine Creatinine 24 Hour 995mg/24 hr (0963-3507) Creatinine Clearance 24 Hour 21mL/min (97-137) Urine Protein 24 Hr Calculated 2492.0mg/24 hr (30.0-150.0) Creatinine 3.28mg/dL (0.76-1.27) 3.4mg/dL (0.7-1.3) Estimated GFR (Non- 18 (>59) EGFR 21 (>59) Glucose (Fingerstick) 143mg/dL (70-99) 200mg/dL (70-99) White Blood Count 12.1x10^3/uL (4.0-11.0) Red Blood Count 3.43x10^6/uL (4.30-5.70) Hemoglobin 10.7g/dL (13.0-17.5) Hematocrit 34.2% (39.0-53.0) Mean Corpuscular Volume 100fL (79-100) Mean Corpuscular Hemoglobin 31pg (25-35) Mean Corpuscular Hemoglobin Concent 31g/dL (31-37) Red Cell Distribution Width 17.5% (11.5-14.5) Platelet Count 220x10^3/uL (140-400) Neutrophils (%) (Auto) 77% (31-73) Lymphocytes (%) (Auto) 14% (24-48) Monocytes (%) (Auto) 7% (0-9) Eosinophils (%) (Auto) 2% (0-3) Basophils (%) (Auto) 1% (0-3) Neutrophils # (Auto) 9.3x10^3uL (1.8-7.7) Lymphocytes # (Auto) 1.6x10^3/uL (1.0-4.8) Monocytes # (Auto) 0.8x10^3/uL (0.0-1.1) Eosinophils # (Auto) 0.2x10^3/uL (0.0-0.7) Basophils # (Auto) 0.1x10^3/uL (0.0-0.2) Sodium Level 144mmol/L (136-145) Potassium Level 3.8mmol/L (3.5-5.1) Chloride Level 110mmol/L (98-107) Carbon Dioxide Level 21mmol/L (21-32) Anion Gap 13 (6-14) Blood Urea Nitrogen 64mg/dL (8-26) Estimated GFR (Cockcroft-Gault) 18.0 Glucose Level 140mg/dL (70-99) Calcium Level 8.8mg/dL (8.5-10.1) Magnesium Level 2.2mg/dL (1.8-2.4) Test 06/05/16 08:07 06/05/16 11:42 06/05/16 16:13 06/05/16 20:23 Glucose (Fingerstick) 122mg/dL (70-99) 172mg/dL (70-99) 151mg/dL (70-99) 175mg/dL (70-99) Test 06/06/16 03:28 06/06/16 07:19 06/06/16 11:10 White Blood Count 12.3x10^3/uL (4.0-11.0) Red Blood Count 3.61x10^6/uL (4.30-5.70) Hemoglobin 11.3g/dL (13.0-17.5) Hematocrit 36.2% (39.0-53.0) Mean Corpuscular Volume 100fL (79-100) Mean Corpuscular Hemoglobin 31pg (25-35) Mean Corpuscular Hemoglobin Concent 31g/dL (31-37) Red Cell Distribution Width 17.3% (11.5-14.5) Platelet Count 225x10^3/uL (140-400) Neutrophils (%) (Auto) 79% (31-73) Lymphocytes (%) (Auto) 11% (24-48) Monocytes (%) (Auto) 7% (0-9) Eosinophils (%) (Auto) 2% (0-3) Basophils (%) (Auto) 1% (0-3) Neutrophils # (Auto) 9.8x10^3uL (1.8-7.7) Lymphocytes # (Auto) 1.4x10^3/uL (1.0-4.8) Monocytes # (Auto) 0.9x10^3/uL (0.0-1.1) Eosinophils # (Auto) 0.2x10^3/uL (0.0-0.7) Basophils # (Auto) 0.1x10^3/uL (0.0-0.2) Sodium Level 145mmol/L (136-145) Potassium Level 4.1mmol/L (3.5-5.1) Chloride Level 108mmol/L (98-107) Carbon Dioxide Level 23mmol/L (21-32) Anion Gap 14 (6-14) Blood Urea Nitrogen 73mg/dL (8-26) Creatinine 4.0mg/dL (0.7-1.3) Estimated GFR (Cockcroft-Gault) 15.0 Glucose Level 137mg/dL (70-99) Calcium Level 9.1mg/dL (8.5-10.1) Glucose (Fingerstick) 117mg/dL (70-99) 171mg/dL (70-99) Laboratory Tests Test 06/05/16 16:13 06/05/16 20:23 06/06/16 03:28 06/06/16 07:19 Glucose (Fingerstick) 151mg/dL (70-99) 175mg/dL (70-99) 117mg/dL (70-99) White Blood Count 12.3x10^3/uL (4.0-11.0) Red Blood Count 3.61x10^6/uL (4.30-5.70) Hemoglobin 11.3g/dL (13.0-17.5) Hematocrit 36.2% (39.0-53.0) Mean Corpuscular Volume 100fL (79-100) Mean Corpuscular Hemoglobin 31pg (25-35) Mean Corpuscular Hemoglobin Concent 31g/dL (31-37) Red Cell Distribution Width 17.3% (11.5-14.5) Platelet Count 225x10^3/uL (140-400) Neutrophils (%) (Auto) 79% (31-73) Lymphocytes (%) (Auto) 11% (24-48) Monocytes (%) (Auto) 7% (0-9) Eosinophils (%) (Auto) 2% (0-3) Basophils (%) (Auto) 1% (0-3) Neutrophils # (Auto) 9.8x10^3uL (1.8-7.7) Lymphocytes # (Auto) 1.4x10^3/uL (1.0-4.8) Monocytes # (Auto) 0.9x10^3/uL (0.0-1.1) Eosinophils # (Auto) 0.2x10^3/uL (0.0-0.7) Basophils # (Auto) 0.1x10^3/uL (0.0-0.2) Sodium Level 145mmol/L (136-145) Potassium Level 4.1mmol/L (3.5-5.1) Chloride Level 108mmol/L (98-107) Carbon Dioxide Level 23mmol/L (21-32) Anion Gap 14 (6-14) Blood Urea Nitrogen 73mg/dL (8-26) Creatinine 4.0mg/dL (0.7-1.3) Estimated GFR (Cockcroft-Gault) 15.0 Glucose Level 137mg/dL (70-99) Calcium Level 9.1mg/dL (8.5-10.1) Test 06/06/16 11:10 Glucose (Fingerstick) 171mg/dL (70-99) Medications Current Medications Heparin Sodium (Porcine) 5,000 unit Q8HRS SQ Last administered on 06/04/16 13: 44; Start 06/03/16 at 06:00; Stop 06/04/16 at 14:34; Status DC Furosemide (Lasix) 40 mg BID92 IVP Last administered on 06/06/16 09:49; Start 06/03/16 at 09:00 Allopurinol (Zyloprim) 200 mg DAILY PO Last administered on 06/06/16 09:53; Start 06/03/16 at 15:00 Dabigatran (Pradaxa) 75 mg BID PO Last administered on 06/06/16 09:53; Start 06/03/16 at 15:00 Diltiazem HCl (Cardizem 24hr Cd) 120 mg DAILY PO Last administered on 08:42; Start 06/03/16 at 15:00; Stop 06/05/16 at 15:46; Status DC Furosemide (Lasix) 40 mg BID92 PO ; Start 06/03/16 at 15:00; Stop 06/03/16 at 16 :42; Status DC Hydralazine HCl (Apresoline) 75 mg TID PO Last administered on 06/06/16 09:49 ; Start 06/03/16 at 15:00 Metoprolol Succinate (Toprol Xl) 50 mg DAILY PO Last administered on 06/06/16 09:54; Start 06/03/16 at 15:00 Non-Formulary Medication 100 unit prn SQ ; Start 06/03/16 at 14:15; Stop at 16:02; Status DC Non-Formulary Medication 100 unit prn SQ ; Start 06/03/16 at 14:15; Status UNV Losartan Potassium (Cozaar) 100 mg DAILY PO Last administered on 06/06/16 09: 49; Start 06/03/16 at 15:00 Potassium Chloride (Klor-Con) 20 meq DAILYWBKFT PO ; Start 06/03/16 at 15:00; Stop 06/03/16 at 16:42; Status DC Atorvastatin Calcium (Lipitor) 5 mg QHS PO Last administered on 06/05/16 20:24 ; Start 06/03/16 at 21:00 Torsemide (Demadex) 100 mg DAILY PO ; Start 06/03/16 at 15:00; Stop 06/03/16 at 16:42; Status DC Insulin Aspart (Novolog) 0-5 UNITS TIDWMEALS SQ Last administered on 06/05/16 18:02; Start 06/03/16 at 17:00 Dextrose 12.5 gm PRN Q15MIN PRN IV SEE COMMENTS; Start 06/03/16 at 16:00 Insulin Detemir (Levemir) 25 units QHS SQ Last administered on 06/05/16 20:30 ; Start 06/03/16 at 21:00 Potassium Chloride (Klor-Con) 20 meq BID PO Last administered on 06/06/16 09: 48; Start 06/03/16 at 21:00 Potassium Chloride (Klor-Con) 40 meq 1X ONCE PO Last administered on 11:45; Start 06/04/16 at 10:30; Stop 06/04/16 at 10:35; Status DC Acetaminophen/ Hydrocodone Bitart (Lortab 5/325) 1 tab PRN Q4HRS PRN PO MODERATE PAIN Last administered on 06/04/16 22:17; Start 06/04/16 at 22:00 Metolazone (Zaroxolyn) 5 mg DAILY PO Last administered on 06/06/16 09:53; Start 06/05/16 at 16:00 Info (Anti-Coagulation Monitoring By Pharmacy) 1 each PRN DAILY PRN MC SEE COMMENTS Last administered on 06/06/16 09:20; Start 06/06/16 at 08:00 Regadenoson (Lexiscan) 0.4 mg 1X ONCE IV Last administered on 06/06/16 08:33 ; Start 06/06/16 at 08:15; Stop 06/06/16 at 08:16; Status DC Albuterol/ Ipratropium (Duoneb) 3 ml PRN Q4HRS PRN NEB SHORTNESS OF BREATH Last administered on 06/06/16t 11:16; Start 06/06/16 at 10:45 Active Scripts Active Reported Furosemide 40 Mg Tablet 40 Mg PO BID Hydralazine Hcl 25 Mg Tablet 75 Mg PO TID Pradaxa (Dabigatran Etexilate Mesylate) 75 Mg Capsule 75 Mg PO BID Metolazone 2.5 Mg Tablet 2.5 Mg PO THREE TIMES A WEEK Allopurinol 100 Mg Tablet 200 Mg PO DAILY Potassium Chloride 20 Meq Tablet.er 20 Meq PO DAILY Toprol Xl (Metoprolol Succinate) 50 Mg Tab.er.24h 50 Mg PO DAILY Levemir (Insulin Detemir) 100 Unit/1 Ml Vial 25 Unit SQ QHS Losartan Potassium 100 Mg Tablet 100 Mg PO DAILY Pravastatin Sodium 20 Mg Tablet 20 Mg PO DAILY Torsemide 100 Mg Tablet 100 Mg PO DAILY Novolog (Insulin Aspart) 100 Unit/1 Ml Cartridge 100 Unit SQ PRN Diltiazem 24HR Er (Diltiazem Hcl) 120 Mg Cap.er.24h 120 Mg PO DAILY Vitals/I & O Vital Sign - Last 24 Hours 06/05/16 06/05/16 06/05/16 06/05/16 14:12 14:13 19:18 20:00 Temp 97.4 97.2 97.4 97.2 Pulse 63 55 59 Resp 20 18 B/P 124/71 124/71 124/71 Pulse Ox 96 95 O2 Delivery Room Air Room Air Room Air 06/05/16 06/05/16 06/06/16 06/06/16 20:24 22:47 02:14 07:17 Temp 97.8 97.7 98.1 97.8 97.7 98.1 Pulse 60 59 61 58 Resp 16 18 16 B/P 124/71 121/73 100/77 128/80 Pulse Ox 96 92 98 O2 Delivery Room Air Room Air Room Air 06/06/16 06/06/16 06/06/16 06/06/16 08:06 09:49 09:49 09:54 Pulse 74 74 74 B/P 128/80 128/80 128/80 O2 Delivery Room Air 06/06/16 06/06/16 11:10 11:17 Temp 98.2 98.2 Pulse 66 B/P 134/72 Pulse Ox 99 100 O2 Delivery Room Air Room Air Intake and Output 06/05/16 06/05/1617 15:00 23:00 07:00 Intake Total 580 ml 1000 ml 500 ml Output Total 600 ml Balance 580 ml 1000 ml -100 ml RICKEY ISRAEL MD Jun 06, 2016 12:29
--- NOTE | 2016-06-06 12:45 | PDOC ---
EVELYN FARFAN MAINTENANCE DIRECTOR 06/06/16 1245: CARDIO Progress Notes Date and Time Date of Service 06/06/16 Time of Evaluation 1150 Subjective Subjective: No Chest Pain, No shortness of breath, No Palpitations, Other ( breathing better, mild SOA ) Vitals Vitals Vital Signs Date Time Temp Pulse Resp B/P Pulse Ox O2 Delivery O2 Flow Rate FiO2 06/06/16 11:17 100 Room Air 06/06/16 11:10 98.2 66 134/72 98.2 06/06/16 07:17 16 Weight Weight [ ] Input and Output Intake and Output Intake and Output 06/06/16 07:00 Intake Total 2080 ml Output Total 600 ml Balance 1480 ml Intake Oral 2080 ml Output Urine Total 600 ml Laboratory Labs Laboratory Tests Test 06/05/16 16:13 06/05/16 20:23 06/06/16 03:28 06/06/16 07:19 Glucose (Fingerstick) 151mg/dL (70-99) 175mg/dL (70-99) 117mg/dL (70-99) White Blood Count 12.3x10^3/uL (4.0-11.0) Red Blood Count 3.61x10^6/uL (4.30-5.70) Hemoglobin 11.3g/dL (13.0-17.5) Hematocrit 36.2% (39.0-53.0) Mean Corpuscular Volume 100fL (79-100) Mean Corpuscular Hemoglobin 31pg (25-35) Mean Corpuscular Hemoglobin Concent 31g/dL (31-37) Red Cell Distribution Width 17.3% (11.5-14.5) Platelet Count 225x10^3/uL (140-400) Neutrophils (%) (Auto) 79% (31-73) Lymphocytes (%) (Auto) 11% (24-48) Monocytes (%) (Auto) 7% (0-9) Eosinophils (%) (Auto) 2% (0-3) Basophils (%) (Auto) 1% (0-3) Neutrophils # (Auto) 9.8x10^3uL (1.8-7.7) Lymphocytes # (Auto) 1.4x10^3/uL (1.0-4.8) Monocytes # (Auto) 0.9x10^3/uL (0.0-1.1) Eosinophils # (Auto) 0.2x10^3/uL (0.0-0.7) Basophils # (Auto) 0.1x10^3/uL (0.0-0.2) Sodium Level 145mmol/L (136-145) Potassium Level 4.1mmol/L (3.5-5.1) Chloride Level 108mmol/L (98-107) Carbon Dioxide Level 23mmol/L (21-32) Anion Gap 14 (6-14) Blood Urea Nitrogen 73mg/dL (8-26) Creatinine 4.0mg/dL (0.7-1.3) Estimated GFR (Cockcroft-Gault) 15.0 Glucose Level 137mg/dL (70-99) Calcium Level 9.1mg/dL (8.5-10.1) Test 06/06/16 11:10 Glucose (Fingerstick) 171mg/dL (70-99) Review of Systems Constitutional: yes: alert, oriented, weakness Ears/Nose/Throat: Yes: no symptom reported Eyes: Yes: no symptom reported Pulmonary: Yes dyspnea Cardiovascular: Yes orthopnea, Yes edema Gastrointestional: Yes: constipation Genitourinary: Yes: no symptom reported Musculoskeletal: Yes: muscle stiffness Skin: Yes no symptom reported Physical Exam HEENT: Neck Supple W Full Motion Chest: Symmetric LUNGS: Clear to Auscultation, Other (diminished bases ) Heart: S1S2, irregularly irregular, other (tele AFIB) Abdomen: Soft N/T Extremities: Other (2+ pitting bilateral LE ) Neurology: alert, oriented, follow commands Assessment Assessment 1. 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 UOP remains marginal UOP despite addition of Zaroxolyn and IV Lasix. Cr. now 4.0. Plan to place dialysis catheter and initiate HD. repeat echo notable for LVEF of 25-30%. Continue optimization therapy. 2. Hypertension well-controlled. continue with current therapy 3. Permanent AFIB rate controlled presently controlled with BB. Cardizem discontinued due to depressed LVEF Will convert Pradaxa to Eliquis as patient is beginning HD 4. Mildly elevated troponin peak 0.094. likely type II, demand ischemia in the setting of SARAH/CKD MPI results pending 5. h/o mild nonobstructive CAD stable. CP free. Doubt ACS. continue medical management 6. Hyperlipidemia statin therapy. 7. Diabetes type 2 per PCP 8. SARAH with CKD 4 Cr now 4.0 HD to start per nephrology 9. Renal cell carcinoma LEX BAZZI MD 06/06/16 1617: CARDIO Progress Notes Assessment Assessment Patient seen and examined. Agree with CROWN ASSEMBLY MACHINE OPERATOR's assessment and plan. Inadequate diuresis despite IV Lasix and Zaroxolyn. Start dobutamine infusion for inotropic support. Nephrology team contemplating hemodialysis initiation. EVELYN FARFAN APRN Jun 06, 2016 12:45 LEX BAZZI MD Jun 06, 2016 16:17
--- NOTE | 2016-06-06 13:32 | RAD ---
APPROVED REPORT Test Type: Pharmacological Stress Nurse/Tech: Lashawn Abreu R.N. Test Indications: Decreased LVEF Cardiac History: CHF, CAD, HTN, AFib Medications: SEE EMR Medical History: SEE EMR Resting ECG: AFib, BBB Resting Heart Rate: 64 bpm Resting Blood Pressure: 137/71mmHg Pretest Chest Pain: No chest pain Nurse/Tech Notes HR irregular, lungs CTA, diminished throughout, denied chest pain, SOA or dizziness. Consent: The procedure was explained to the patient in lay terms. Informed consent was witnessed. Travis eout was entered into [employer]. History and Stress Test performed by Lashawn Abreu R.N. Pharm. Details Pharmacologic stress testing was performed using 0.4mg per 5ml of regadenoson given intravenously ove r 7-10 seconds. Stress Symptoms SOA, stomach upset. POST EXERCISE Reason for Termination: Infusion complete Max HR: 78 bpm Max Blood Pressure: 142/62mmHg Blood Pressure response to exercise: Normal blood pressure response during stress. Heart Rate response to exercise: Normal Chest Pain: No. Arrhythmia: No. ST Change: No. INTERPRETATION Stress EKG Conclusion: Baseline EKG showed atrial fibrillation. Nondiagnostic changes at peak stress . No other arrhythmias. Imaging Protocol IMAGE PROTOCOL: Rest Tc-99m/stress Tc-99m 2 days Rest: Stress: Viability: Radiopharm.Tc99m [id number] Sestamibi Dose38.9mCi 38mCi Duration 12min. 12min. Img Date 06/05/2016 06/06/2016 Inj-Img Aykh10ofm. 90min. Rest Admin Site:IV - Right ForearmAdministrator:LOWELL Jones Stress Admin Site: IV - Right ForearmAdministrator: HANNAH Buenrostro, ARRT (R)(N) STRESS DATA End Diast. Vol.287.0mlAv. Heart Rate69.0bpm End Syst. Vol.185.0mlCO Index BSA0.0L/min Myocardial Duqo823.0gEject. Vvlndhvs81.0% Stress Rates Pk. Fill Rate1.49EDV/secLVtime Pk. Fill 256.55msec Pk. Empty Rate2.22ESV/secLVtime Pk. Gxkwr186.12msec 1/3 Pk. Fill0.47EDV/sec Stress Scores Regional WT3.00Summed WT32.00 Regional WM3.00Summed WM30.00 LV Perfusion Scintigraphic images showed small fixed defect involving the base to mid lateral wall consistent with previous myocardial infarction without any significant reversibility. Wall Motion Moderate global left ventricle systolic dysfunction with ejection fraction calculated at 36%. LV Perf. Quant 17 Seg. SSS9.00 17 Seg. SRS5.00 17 Seg. SDS5.00 Stress Defect Extent (% LAD)14.40Rest Defect Extent (% LAD)0.00Rev. Defect Extent (% LAD)4.40 Stress Defect Extent (% LCX) 45.00Rest Defect Extent (% LCX)18.80Rev. Defect Extent (% LCX)20.00 Stress Defect Extent (% RCA)8.90Rest Defect Extent (% RCA)10.00Rev. Defect Extent (% RCA)0.00 Stress Defect Extent (% DEE DEE)18.30Rest Defect Extent (% DEE DEE)8.00Rev. Defect Extent (% DEE DEE)5.70 Conclusion 1. Regadenoson cardioisotope stress test showed small to moderate infarction involving the base to mi d lateral wall without any significant ischemia. 2. Moderate global left ventricle systolic dysfunction with ejection fraction calculated at 36%. 3. Low to intermediate risk for cardiac events.
[2016-06-06] MEDS ORDERED: MIDAZOLAM HCL/PF 5 MG/5 ML VIAL ONE (13:53)
[2016-06-06] MEDS ORDERED: FENTANYL PF 250 MCG/5 ML VIAL. ONE (13:53)
[2016-06-06 13:55] LABS: INR 2.2 (0.8-1.1); PROTHROMBIN TIME PATIENT 23.1 SEC (11.7-14.0)
[2016-06-06 14:32] LABS: ALBUMIN 3.1 g/dL (3.4-5.0); DIRECT BILIRUBIN 0.2 mg/dL (0.0-0.2); TOTAL BILIRUBIN 0.5 mg/dL (0.2-1.0)
--- NOTE | 2016-06-06 15:19 | RAD ---
Indication: Shortness of breath. Time of exam 1503 hours. Comparison is made with prior study 03/08/2005. The heart is enlarged. There is central congestion but no overt failure. No infiltrate, effusion or pneumothorax is detected. Impression: Cardiomegaly and central congestion.
[2016-06-06] MEDS: DOBUTAMINE 500MG/250ML PREMIX 250 ML IV PRN (16:50)
[2016-06-06 22:11] LABS: HEP B SURFACE ABDY Non Reactive (.)
[2016-06-07] MEDS: HYDROCODONE/APAP 5/325MG TABLET. PO PRN (00:06)
[2016-06-07] MEDS: ATORVASTATIN CALCIUM 10 MG TABLET. PO SCH ×2 (00:07→21:48)
[2016-06-07] MEDS: POTASSIUM CHLORIDE 20 MEQ TABLET.ER. PO SCH ×3 (00:07→21:47)
[2016-06-07] MEDS: DABIGATRAN ETEXILATE 75 MG CAPSULE. PO SCH (00:07)
[2016-06-07] MEDS: HYDRALAZINE 25 MG TABLET PO SCH ×4 (00:08→21:47)
[2016-06-07] MEDS: INSULIN DETEMIR 300 UNITS/3 ML INSULN.PEN. SQ SCH ×2 (00:19→21:45)
[2016-06-07 03:00] VITALS: BP 121/60
[2016-06-07] MEDS: DOBUTAMINE 500MG/250ML PREMIX 250 ML IV PRN ×2 (05:28→21:50)
[2016-06-07 06:06] LABS: BASO # 0.1 x10^3/uL (0.0-0.2); BASO % 1 % (0-3); EOS % 1 % (0-3); HEMATOCRIT 33.1 % (39.0-53.0); HEMOGLOBIN 10.5 g/dL (13.0-17.5); LYMPH # 0.6 x10^3/uL (1.0-4.8); LYMPH % 7 % (24-48); MEAN CORPUSCULAR HEMOGLOBIN 31 pg (25-35); MEAN CORPUSCULAR HGB CONC 32 g/dL (31-37); MEAN CORPUSCULAR VOLUME 99 fL (79-100); MONO % 7 % (0-9); NEUT % 84 % (31-73); PLATELET COUNT 183 x10^3/uL (140-400); RED BLOOD COUNT 3.33 x10^6/uL (4.30-5.70)
[2016-06-07 06:35] LABS: CALCIUM 8.9 mg/dL (8.5-10.1); CREATININE 3.7 mg/dL (0.7-1.3); GFR 16.4; POTASSIUM 3.4 mmol/L (3.5-5.1)
[2016-06-07 07:33] VITALS: BP 135/70
[2016-06-07] MEDS: INSULIN ASPART 300 UNITS/3 ML INSULN.PEN SQ SCH ×3 (08:00→17:00)
[2016-06-07] MEDS: APIXABAN 5 MG TABLET. PO SCH ×2 (09:00→21:47)
--- NOTE | 2016-06-07 10:22 | PDOC ---
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 Discussed plan of care plan HD, Cr increasing, still has edema, unable to get fluid off Vitals Vitals Vital Signs Date Time Temp Pulse Resp B/P Pulse Ox O2 Delivery O2 Flow Rate FiO2 06/07/16 07:33 97.8 98 20 135/70 95 Room Air 97.8 Physical Exam General: Alert, Oriented X3, Cooperative, No acute distress Heart: Normal S1, Normal S2, No murmurs, Other ( ) Lungs: Clear Abdomen: Soft, No tenderness Extremities: No clubbing, No cyanosis, Other (persistent edema today; b/l charcot foot deformity) Skin: Other (ecchymosis left arm ) Labs LABS Laboratory Tests Test 06/06/16 11:10 06/06/16 13:05 06/06/16 17:33 06/06/16 20:39 Glucose (Fingerstick) 171mg/dL (70-99) 104mg/dL (70-99) 172mg/dL (70-99) Prothrombin Time 23.1SEC (11.7-14.0) Prothromb Time International Ratio 2.2 (0.8-1.1) Test 06/07/16 05:10 06/07/16 07:36 White Blood Count 9.0x10^3/uL (4.0-11.0) Red Blood Count 3.33x10^6/uL (4.30-5.70) Hemoglobin 10.5g/dL (13.0-17.5) Hematocrit 33.1% (39.0-53.0) Mean Corpuscular Volume 99fL (79-100) Mean Corpuscular Hemoglobin 31pg (25-35) Mean Corpuscular Hemoglobin Concent 32g/dL (31-37) Red Cell Distribution Width 17.0% (11.5-14.5) Platelet Count 183x10^3/uL (140-400) Neutrophils (%) (Auto) 84% (31-73) Lymphocytes (%) (Auto) 7% (24-48) Monocytes (%) (Auto) 7% (0-9) Eosinophils (%) (Auto) 1% (0-3) Basophils (%) (Auto) 1% (0-3) Neutrophils # (Auto) 7.6x10^3uL (1.8-7.7) Lymphocytes # (Auto) 0.6x10^3/uL (1.0-4.8) Monocytes # (Auto) 0.6x10^3/uL (0.0-1.1) Eosinophils # (Auto) 0.1x10^3/uL (0.0-0.7) Basophils # (Auto) 0.1x10^3/uL (0.0-0.2) Sodium Level 144mmol/L (136-145) Potassium Level 3.4mmol/L (3.5-5.1) Chloride Level 108mmol/L (98-107) Carbon Dioxide Level 23mmol/L (21-32) Anion Gap 13 (6-14) Blood Urea Nitrogen 70mg/dL (8-26) Creatinine 3.7mg/dL (0.7-1.3) Estimated GFR (Cockcroft-Gault) 16.4 Glucose Level 118mg/dL (70-99) Calcium Level 8.9mg/dL (8.5-10.1) Glucose (Fingerstick) 112mg/dL (70-99) Assessment and Plan Assessmemt and Plan tunneled line today HD to follow renal, Problems: Comment Review of Relevant I have reviewed the following items jennifer (where applicable) has been applied. Labs Laboratory Tests Test 06/05/16 11:42 06/05/16 16:13 06/05/16 20:23 06/06/16 03:28 Glucose (Fingerstick) 172mg/dL (70-99) 151mg/dL (70-99) 175mg/dL (70-99) White Blood Count 12.3x10^3/uL (4.0-11.0) Red Blood Count 3.61x10^6/uL (4.30-5.70) Hemoglobin 11.3g/dL (13.0-17.5) Hematocrit 36.2% (39.0-53.0) Mean Corpuscular Volume 100fL (79-100) Mean Corpuscular Hemoglobin 31pg (25-35) Mean Corpuscular Hemoglobin Concent 31g/dL (31-37) Red Cell Distribution Width 17.3% (11.5-14.5) Platelet Count 225x10^3/uL (140-400) Neutrophils (%) (Auto) 79% (31-73) Lymphocytes (%) (Auto) 11% (24-48) Monocytes (%) (Auto) 7% (0-9) Eosinophils (%) (Auto) 2% (0-3) Basophils (%) (Auto) 1% (0-3) Neutrophils # (Auto) 9.8x10^3uL (1.8-7.7) Lymphocytes # (Auto) 1.4x10^3/uL (1.0-4.8) Monocytes # (Auto) 0.9x10^3/uL (0.0-1.1) Eosinophils # (Auto) 0.2x10^3/uL (0.0-0.7) Basophils # (Auto) 0.1x10^3/uL (0.0-0.2) Sodium Level 145mmol/L (136-145) Potassium Level 4.1mmol/L (3.5-5.1) Chloride Level 108mmol/L (98-107) Carbon Dioxide Level 23mmol/L (21-32) Anion Gap 14 (6-14) Blood Urea Nitrogen 73mg/dL (8-26) Creatinine 4.0mg/dL (0.7-1.3) Estimated GFR (Cockcroft-Gault) 15.0 Glucose Level 137mg/dL (70-99) Calcium Level 9.1mg/dL (8.5-10.1) Total Bilirubin 0.5mg/dL (0.2-1.0) Direct Bilirubin 0.2mg/dL (0.0-0.2) Aspartate Amino Transf (AST/SGOT) 21U/L (15-37) Alanine Aminotransferase (ALT/SGPT) 30U/L (16-63) Alkaline Phosphatase 107U/L (46-116) Total Protein 7.0g/dL (6.4-8.2) Albumin 3.1g/dL (3.4-5.0) Hepatitis B Surface Antibody Non reactive (.) Hepatitis B Core Total Antibody Negative (Negative) Test 06/06/16 07:19 06/06/16 11:10 06/06/16 13:05 06/06/16 17:33 Glucose (Fingerstick) 117mg/dL (70-99) 171mg/dL (70-99) 104mg/dL (70-99) Prothrombin Time 23.1SEC (11.7-14.0) Prothromb Time International Ratio 2.2 (0.8-1.1) Test 06/06/16 20:39 06/07/16 05:10 06/07/16 07:36 Glucose (Fingerstick) 172mg/dL (70-99) 112mg/dL (70-99) White Blood Count 9.0x10^3/uL (4.0-11.0) Red Blood Count 3.33x10^6/uL (4.30-5.70) Hemoglobin 10.5g/dL (13.0-17.5) Hematocrit 33.1% (39.0-53.0) Mean Corpuscular Volume 99fL (79-100) Mean Corpuscular Hemoglobin 31pg (25-35) Mean Corpuscular Hemoglobin Concent 32g/dL (31-37) Red Cell Distribution Width 17.0% (11.5-14.5) Platelet Count 183x10^3/uL (140-400) Neutrophils (%) (Auto) 84% (31-73) Lymphocytes (%) (Auto) 7% (24-48) Monocytes (%) (Auto) 7% (0-9) Eosinophils (%) (Auto) 1% (0-3) Basophils (%) (Auto) 1% (0-3) Neutrophils # (Auto) 7.6x10^3uL (1.8-7.7) Lymphocytes # (Auto) 0.6x10^3/uL (1.0-4.8) Monocytes # (Auto) 0.6x10^3/uL (0.0-1.1) Eosinophils # (Auto) 0.1x10^3/uL (0.0-0.7) Basophils # (Auto) 0.1x10^3/uL (0.0-0.2) Sodium Level 144mmol/L (136-145) Potassium Level 3.4mmol/L (3.5-5.1) Chloride Level 108mmol/L (98-107) Carbon Dioxide Level 23mmol/L (21-32) Anion Gap 13 (6-14) Blood Urea Nitrogen 70mg/dL (8-26) Creatinine 3.7mg/dL (0.7-1.3) Estimated GFR (Cockcroft-Gault) 16.4 Glucose Level 118mg/dL (70-99) Calcium Level 8.9mg/dL (8.5-10.1) Laboratory Tests Test 06/06/16 11:10 06/06/16 13:05 06/06/16 17:33 06/06/16 20:39 Glucose (Fingerstick) 171mg/dL (70-99) 104mg/dL (70-99) 172mg/dL (70-99) Prothrombin Time 23.1SEC (11.7-14.0) Prothromb Time International Ratio 2.2 (0.8-1.1) Test 06/07/16 05:10 06/07/16 07:36 White Blood Count 9.0x10^3/uL (4.0-11.0) Red Blood Count 3.33x10^6/uL (4.30-5.70) Hemoglobin 10.5g/dL (13.0-17.5) Hematocrit 33.1% (39.0-53.0) Mean Corpuscular Volume 99fL (79-100) Mean Corpuscular Hemoglobin 31pg (25-35) Mean Corpuscular Hemoglobin Concent 32g/dL (31-37) Red Cell Distribution Width 17.0% (11.5-14.5) Platelet Count 183x10^3/uL (140-400) Neutrophils (%) (Auto) 84% (31-73) Lymphocytes (%) (Auto) 7% (24-48) Monocytes (%) (Auto) 7% (0-9) Eosinophils (%) (Auto) 1% (0-3) Basophils (%) (Auto) 1% (0-3) Neutrophils # (Auto) 7.6x10^3uL (1.8-7.7) Lymphocytes # (Auto) 0.6x10^3/uL (1.0-4.8) Monocytes # (Auto) 0.6x10^3/uL (0.0-1.1) Eosinophils # (Auto) 0.1x10^3/uL (0.0-0.7) Basophils # (Auto) 0.1x10^3/uL (0.0-0.2) Sodium Level 144mmol/L (136-145) Potassium Level 3.4mmol/L (3.5-5.1) Chloride Level 108mmol/L (98-107) Carbon Dioxide Level 23mmol/L (21-32) Anion Gap 13 (6-14) Blood Urea Nitrogen 70mg/dL (8-26) Creatinine 3.7mg/dL (0.7-1.3) Estimated GFR (Cockcroft-Gault) 16.4 Glucose Level 118mg/dL (70-99) Calcium Level 8.9mg/dL (8.5-10.1) Glucose (Fingerstick) 112mg/dL (70-99) Medications Current Medications Heparin Sodium (Porcine) 5,000 unit Q8HRS SQ Last administered on 06/04/16 13: 44; Start 06/03/16 at 06:00; Stop 06/04/16 at 14:34; Status DC Furosemide (Lasix) 40 mg BID92 IVP Last administered on 06/06/16 14:39; Start 06/03/16 at 09:00 Allopurinol (Zyloprim) 200 mg DAILY PO Last administered on 06/06/16 09:53; Start 06/03/16 at 15:00 Dabigatran (Pradaxa) 75 mg BID PO Last administered on 06/07/16 00:07; Start 06/03/16 at 15:00; Stop 06/06/16 at 21:01; Status DC Diltiazem HCl (Cardizem 24hr Cd) 120 mg DAILY PO Last administered on 08:42; Start 06/03/16 at 15:00; Stop 06/05/16 at 15:46; Status DC Furosemide (Lasix) 40 mg BID92 PO ; Start 06/03/16 at 15:00; Stop 06/03/16 at 16 :42; Status DC Hydralazine HCl (Apresoline) 75 mg TID PO Last administered on 06/07/16 00:08 ; Start 06/03/16 at 15:00 Metoprolol Succinate (Toprol Xl) 50 mg DAILY PO Last administered on 06/06/16 09:54; Start 06/03/16 at 15:00 Non-Formulary Medication 100 unit prn SQ ; Start 06/03/16 at 14:15; Stop at 16:02; Status DC Non-Formulary Medication 100 unit prn SQ ; Start 06/03/16 at 14:15; Status UNV Losartan Potassium (Cozaar) 100 mg DAILY PO Last administered on 06/06/16 09: 49; Start 06/03/16 at 15:00 Potassium Chloride (Klor-Con) 20 meq DAILYWBKFT PO ; Start 06/03/16 at 15:00; Stop 06/03/16 at 16:42; Status DC Atorvastatin Calcium (Lipitor) 5 mg QHS PO Last administered on 06/07/16 00:07 ; Start 06/03/16 at 21:00 Torsemide (Demadex) 100 mg DAILY PO ; Start 06/03/16 at 15:00; Stop 06/03/16 at 16:42; Status DC Insulin Aspart (Novolog) 0-5 UNITS TIDWMEALS SQ Last administered on 06/05/16 18:02; Start 06/03/16 at 17:00 Dextrose 12.5 gm PRN Q15MIN PRN IV SEE COMMENTS; Start 06/03/16 at 16:00 Insulin Detemir (Levemir) 25 units QHS SQ Last administered on 06/07/16 00:19 ; Start 06/03/16 at 21:00 Potassium Chloride (Klor-Con) 20 meq BID PO Last administered on 06/07/16 00: 07; Start 06/03/16 at 21:00 Potassium Chloride (Klor-Con) 40 meq 1X ONCE PO Last administered on 11:45; Start 06/04/16 at 10:30; Stop 06/04/16 at 10:35; Status DC Acetaminophen/ Hydrocodone Bitart (Lortab 5/325) 1 tab PRN Q4HRS PRN PO MODERATE PAIN Last administered on 06/07/16 00:06; Start 06/04/16 at 22:00 Metolazone (Zaroxolyn) 5 mg DAILY PO Last administered on 06/06/16 09:53; Start 06/05/16 at 16:00 Info (Anti-Coagulation Monitoring By Pharmacy) 1 each PRN DAILY PRN MC SEE COMMENTS Last administered on 06/06/16 13:39; Start 06/06/16 at 08:00 Regadenoson (Lexiscan) 0.4 mg 1X ONCE IV Last administered on 06/06/16 08:33 ; Start 06/06/16 at 08:15; Stop 06/06/16 at 08:16; Status DC Albuterol/ Ipratropium (Duoneb) 3 ml PRN Q4HRS PRN NEB SHORTNESS OF BREATH Last administered on 06/06/16 11:16; Start 06/06/16 at 10:45 Apixaban (Eliquis) 5 mg BID PO ; Start 06/07/16 at 09:00 Midazolam HCl (Versed) 5 mg STK-MED ONCE .ROUTE ; Start 06/06/16 at 13:53; Stop 06/06/16 at 13:54; Status DC Fentanyl Citrate 250 mcg 250 mcg STK-MED ONCE .ROUTE ; Start 06/06/16 at 13:53; Stop 06/06/16 at 13:54; Status DC Dobutamine HCl/ Dextrose 250 ml @ 0 mls/hr CONT PRN IV SEE I/O RECORD Last administered on 06/07/16 05:28; Start 06/06/16 at 16:30 Active Scripts Active Reported Furosemide 40 Mg Tablet 40 Mg PO BID Hydralazine Hcl 25 Mg Tablet 75 Mg PO TID Pradaxa (Dabigatran Etexilate Mesylate) 75 Mg Capsule 75 Mg PO BID Metolazone 2.5 Mg Tablet 2.5 Mg PO THREE TIMES A WEEK Allopurinol 100 Mg Tablet 200 Mg PO DAILY Potassium Chloride 20 Meq Tablet.er 20 Meq PO DAILY Toprol Xl (Metoprolol Succinate) 50 Mg Tab.er.24h 50 Mg PO DAILY Levemir (Insulin Detemir) 100 Unit/1 Ml Vial 25 Unit SQ QHS Losartan Potassium 100 Mg Tablet 100 Mg PO DAILY Pravastatin Sodium 20 Mg Tablet 20 Mg PO DAILY Torsemide 100 Mg Tablet 100 Mg PO DAILY Novolog (Insulin Aspart) 100 Unit/1 Ml Cartridge 100 Unit SQ PRN Diltiazem 24HR Er (Diltiazem Hcl) 120 Mg Cap.er.24h 120 Mg PO DAILY Vitals/I & O Vital Sign - Last 24 Hours 06/06/16 06/06/16 06/06/16 06/06/16 11:10 11:17 14:40 15:15 Temp 98.2 98.2 98.2 98.2 Pulse 66 72 76 Resp 16 B/P 134/72 150/85 139/75 Pulse Ox 99 100 97 O2 Delivery Room Air Room Air Room Air 06/06/16 06/06/16 06/06/16 06/06/16 17:00 17:15 17:30 17:45 Pulse 74 69 80 77 Resp 16 18 18 18 B/P 146/73 148/70 124/85 150/78 06/06/16 06/06/16 06/06/16 06/07/16 19:00 20:00 23:00 00:08 Temp 97.1 97.7 97.1 97.7 Pulse 84 80 88 Resp 21 21 B/P 153/71 156/79 155/84 Pulse Ox 96 94 O2 Delivery Room Air Room Air Room Air 06/07/16 06/07/16 03:00 07:33 Temp 97.9 97.8 97.9 97.8 Pulse 84 98 Resp 19 20 B/P 121/60 135/70 Pulse Ox 96 95 O2 Delivery Room Air Room Air Intake and Output 06/06/16 06/06/16 06/07/16 15:00 23:00 07:00 Intake Total 720 ml 550 ml Output Total 2300 ml 1350 ml Balance -1580 ml -800 ml RICKEY ISRAEL MD Jun 07, 2016 10:22
--- NOTE | 2016-06-07 10:40 | PDOC ---
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 HISTORY OF PRESENT ILLNESS: The patient is a 70-year-old gentleman who was noted to have an incidental mass in the left kidney in 2013. He underwent an ultrasound on 06/27/2013 that revealed a 3.1-cm mass. MRI on 06/29/2013 revealed a mass in the lower pole of the left kidney measuring 2.8 cm. Ultrasound in 04/2015 revealed interval increase in size up to 4.1 cm. Had a followup ultrasound in 03/2016, revealed that the mass was now 4.[address] or MRI could not be done because of poor renal function. He was evaluated by Dr. Heather Almonte at [facility] [place], Urology Department. Biopsy was recommended. He underwent biopsy of the left renal mass on 05/02/2016 by Interventional Radiology and this revealed papillary renal cell carcinoma grade 2. The patient is scheduled to follow with Dr. Almonte regarding further management options. The patient is now admitted to [facility] on 06/02/2016 for congestive heart failure and I was asked to address the renal cell carcinoma. PAST MEDICAL HISTORY: Congestive heart failure, hyperlipidemia, hypertension, diabetes, Charcot joints, arthritis, gout, hypertension, insomnia, renal cell carcinoma as described above. REVIEW OF SYSTEMS: Dyspnea better, No CP PHYSICAL EXAMINATION: GENERAL APPEARANCE: The patient is a 70-year-old gentleman who is well developed, well nourished and in no acute cardiorespiratory distress. CHEST: Bilaterally symmetrical. No crepitations or rhonchi heard. HEART: S1 and S2 normal. ABDOMEN: Soft and nontender. IMPRESSION AND PLAN: 1. Renal cell carcinoma of the left kidney, diagnosed via biopsy on 05/02/2016. 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 I obtained records from [facility] [place]. I discussed in detail with the patient regarding the treatment for renal cell carcinoma. Standard management would be surgical resection. I have recommended urology consultation for further management. The patient has already been followed by Urology since 2013 and he has an appointment to see Dr. Heather Almonte at on 06/08/16 Urology for further management. He will reschedule it. 2. Congestive heart failure. Appreciate Cardiology consultation. Dyspnea improving. 3. Chronic kidney disease. Appreciate Nephrology consultation. He has stage IV-V chronic kidney disease. Hemodialysis is being considered. AGUSTIN LENNON MD Jun 07, 2016 10:40
--- NOTE | 2016-06-07 10:49 | PDOC ---
Renal-Progress Notes Subjective Notes Notes SITTING UP, STILL HAS SOB History of Present Illness Hx of present illness STABLE Vitals Vitals Vital Signs Date Time Temp Pulse Resp B/P Pulse Ox O2 Delivery O2 Flow Rate FiO2 06/07/16 07:33 97.8 98 20 135/70 95 Room Air 97.8 Weight Weight [ ] I.O. Intake and Output Intake and Output 06/07/16 07:00 Intake Total 1270 ml Output Total 3650 ml Balance -2380 ml Intake Oral 1020 ml IV Total 250 ml Output Urine Total 3650 ml # Bowel Movements 1 Labs Labs Laboratory Tests Test 06/06/16 11:10 06/06/16 13:05 06/06/16 17:33 06/06/16 20:39 Glucose (Fingerstick) 171mg/dL (70-99) 104mg/dL (70-99) 172mg/dL (70-99) Prothrombin Time 23.1SEC (11.7-14.0) Prothromb Time International Ratio 2.2 (0.8-1.1) Test 06/07/16 05:10 06/07/16 07:36 White Blood Count 9.0x10^3/uL (4.0-11.0) Red Blood Count 3.33x10^6/uL (4.30-5.70) Hemoglobin 10.5g/dL (13.0-17.5) Hematocrit 33.1% (39.0-53.0) Mean Corpuscular Volume 99fL (79-100) Mean Corpuscular Hemoglobin 31pg (25-35) Mean Corpuscular Hemoglobin Concent 32g/dL (31-37) Red Cell Distribution Width 17.0% (11.5-14.5) Platelet Count 183x10^3/uL (140-400) Neutrophils (%) (Auto) 84% (31-73) Lymphocytes (%) (Auto) 7% (24-48) Monocytes (%) (Auto) 7% (0-9) Eosinophils (%) (Auto) 1% (0-3) Basophils (%) (Auto) 1% (0-3) Neutrophils # (Auto) 7.6x10^3uL (1.8-7.7) Lymphocytes # (Auto) 0.6x10^3/uL (1.0-4.8) Monocytes # (Auto) 0.6x10^3/uL (0.0-1.1) Eosinophils # (Auto) 0.1x10^3/uL (0.0-0.7) Basophils # (Auto) 0.1x10^3/uL (0.0-0.2) Sodium Level 144mmol/L (136-145) Potassium Level 3.4mmol/L (3.5-5.1) Chloride Level 108mmol/L (98-107) Carbon Dioxide Level 23mmol/L (21-32) Anion Gap 13 (6-14) Blood Urea Nitrogen 70mg/dL (8-26) Creatinine 3.7mg/dL (0.7-1.3) Estimated GFR (Cockcroft-Gault) 16.4 Glucose Level 118mg/dL (70-99) Calcium Level 8.9mg/dL (8.5-10.1) Glucose (Fingerstick) 112mg/dL (70-99) Review of Systems Constitutional: yes: alert, oriented, weakness Ears/Nose/Throat: Yes: no symptom reported Eyes: Yes: no symptom reported Pulmonary: Yes dyspnea Cardiovascular: Yes orthopnea, Yes edema Gastrointestional: Yes: constipation Genitourinary: Yes: no symptom reported Musculoskeletal: Yes: muscle stiffness Skin: Yes no symptom reported Physical Exam General Appearance: no apparent distress Skin: warm Respiratory: decreased breath sounds Heart: S1S2, RRR Abdomen: soft, bowel sounds present Neurology: alert, oriented, follow commands Assessment Assessment IMP CHF-SYSTOLIC AND RECURRENT NEW ESRD MILD HYPOKALEMIA-BETTER ANEMIA PROTEINURIA-ABOUT 2.4 GM A DAY DM II - ON INSULIN HX OF LEFT RENAL CA-FOLLOWED AT [facility] PLAN CHANGE LASIX TO PO TEMP HD TODAY DUE TO COAGULOPATHY TDC WHEN BETTER FIRST HD TODAY UF ABOUT 2 LITERS AT 3 HRS QB 350 LEFT MSG WITH CM TO SET UP OP HD IN SIGIFREDO ZAMARRIPA MD Jun 07, 2016 10:49
[2016-06-07 10:55] VITALS: BP 159/75
[2016-06-07] MEDS: FUROSEMIDE 40 MG/4 ML VIAL IVP SCH ×3 (11:02→15:34)
[2016-06-07] MEDS: METOLAZONE 2.5 MG TABLET PO SCH (11:03)
[2016-06-07] MEDS: LOSARTAN POTASSIUM 50 MG TABLET. PO SCH (11:04)
[2016-06-07] MEDS: METOPROLOL SUCC 24HR ER 50 MG TAB.ER.24H. PO SCH (11:06)
[2016-06-07] MEDS: ALLOPURINOL 100 MG TABLET. PO SCH (11:19)
[2016-06-07] MEDS: ANTI-COAG MONITOR BY PHARMACY. MC PRN (12:26)
[2016-06-07] MEDS ORDERED: POTASSIUM CHLORIDE 20 MEQ TABLET.ER. PO ONE (12:45)
--- NOTE | 2016-06-07 12:48 | PDOC ---
JODI OLIVEIRA P[employer] FARM MANAGER 06/07/16 1248: CARDIO Progress Notes Date and Time Date of Service 06/07/2016 Time of Evaluation 1220 Subjective Subjective: No Chest Pain, No Palpitations, No Dizziness, Other (fells better today, currently upright in chair and denies any SOA. ) Vitals Vitals Vital Signs Date Time Temp Pulse Resp B/P Pulse Ox O2 Delivery O2 Flow Rate FiO2 06/07/16 11:06 68 159/75 06/07/16 10:55 97.9 16 97 Room Air 97.9 Weight Weight [ ] Input and Output Intake and Output Intake and Output 06/07/16 07:00 Intake Total 1270 ml Output Total 3650 ml Balance -2380 ml Intake Oral 1020 ml IV Total 250 ml Output Urine Total 3650 ml # Bowel Movements 1 Laboratory Labs Laboratory Tests Test 06/06/16 13:05 06/06/16 17:33 06/06/16 20:39 06/07/16 05:10 Prothrombin Time 23.1SEC (11.7-14.0) Prothromb Time International Ratio 2.2 (0.8-1.1) Glucose (Fingerstick) 104mg/dL (70-99) 172mg/dL (70-99) White Blood Count 9.0x10^3/uL (4.0-11.0) Red Blood Count 3.33x10^6/uL (4.30-5.70) Hemoglobin 10.5g/dL (13.0-17.5) Hematocrit 33.1% (39.0-53.0) Mean Corpuscular Volume 99fL (79-100) Mean Corpuscular Hemoglobin 31pg (25-35) Mean Corpuscular Hemoglobin Concent 32g/dL (31-37) Red Cell Distribution Width 17.0% (11.5-14.5) Platelet Count 183x10^3/uL (140-400) Neutrophils (%) (Auto) 84% (31-73) Lymphocytes (%) (Auto) 7% (24-48) Monocytes (%) (Auto) 7% (0-9) Eosinophils (%) (Auto) 1% (0-3) Basophils (%) (Auto) 1% (0-3) Neutrophils # (Auto) 7.6x10^3uL (1.8-7.7) Lymphocytes # (Auto) 0.6x10^3/uL (1.0-4.8) Monocytes # (Auto) 0.6x10^3/uL (0.0-1.1) Eosinophils # (Auto) 0.1x10^3/uL (0.0-0.7) Basophils # (Auto) 0.1x10^3/uL (0.0-0.2) Sodium Level 144mmol/L (136-145) Potassium Level 3.4mmol/L (3.5-5.1) Chloride Level 108mmol/L (98-107) Carbon Dioxide Level 23mmol/L (21-32) Anion Gap 13 (6-14) Blood Urea Nitrogen 70mg/dL (8-26) Creatinine 3.7mg/dL (0.7-1.3) Estimated GFR (Cockcroft-Gault) 16.4 Glucose Level 118mg/dL (70-99) Calcium Level 8.9mg/dL (8.5-10.1) Test 06/07/16 07:36 06/07/16 10:59 Glucose (Fingerstick) 112mg/dL (70-99) 104mg/dL (70-99) Review of Systems Constitutional: yes: alert, oriented, weakness Ears/Nose/Throat: Yes: no symptom reported Eyes: Yes: no symptom reported Pulmonary: Yes dyspnea Cardiovascular: Yes orthopnea, Yes edema Gastrointestional: Yes: constipation Genitourinary: Yes: no symptom reported Musculoskeletal: Yes: muscle stiffness Skin: Yes no symptom reported Physical Exam HEENT: Neck Supple W Full Motion Chest: Symmetric LUNGS: Clear to Auscultation, Other (diminished bases ) Heart: S1S2, irregularly irregular (AFIB with occasional PVCs. ) Abdomen: Soft N/T Extremities: Other (2-3+ pitting bilateral LE ) Neurology: alert, oriented, follow commands Assessment Assessment 1. 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 Significant UOP overnight after addition of zaroxylyn and dobutamine. Appears better. Replace K. Repeat echo notable for LVEF of 25-30%. High risk for SCD. Continue optimization therapy. Lasix ongoing. Dobutamine to DC once HD commences. Will consider for digoxin at least q48 hour dosing. 2. Hypertension Improved. Still slightly increase likely from dobutamine Will uptitrate regimen as warranted. 3. Permanent AFIB rate controlled presently controlled with BB. Cardizem discontinued due to depressed LVEF Restart eliquis once hemostasis achieved post HD cath placement. 4. Mildly elevated troponin with h/o mild nonobstructive CAD peak 0.094. likely type II, demand ischemia in the setting of SARAH/CKD MPI noted with small to moderate infarction involving the base to mid lateral wall without any significant ischemia. Continue with secondary prevention 5. 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 Optimization as above. Will need lifevest and reeval in 3 months post optimization period and note AICD need. 6. Hyperlipidemia statin therapy. 7. Diabetes type 2 per PCP 8. New ESRD Cr now 4.0 HD to start per nephrology 9. Renal cell carcinoma LEX BAZZI MD 06/08/16 1101: CARDIO Progress Notes Assessment Assessment Patient seen and examined 06/07/16. Agree with BOX CAR WASHER's assessment and plan. Acute on chronic systolic heart failure better compensated after diuresis with Lasix and Zaroxolyn with inotropic support from dobutamine. Nephrology team contemplating initiation of hemodialysis. Continue current medical regimen. JODI OLIVEIRA APRN Jun 07, 2016 12:48 LEX BAZZI MD Jun 08, 2016 11:01
[2016-06-07] MEDS ORDERED: hydrALAZINE 20 MG/ML VIAL. IVP PRN (13:00)
[2016-06-07] MEDS ORDERED: LIDOCAINE 1% / SOD BICARB 8.4% 20 ML VIAL. IJ ONE ×2 (13:20→13:45)
[2016-06-07] MEDS ORDERED: HEPARIN for IV BOLUS 10,000 UNIT/10 ML VIAL. ONE (13:20)
--- NOTE | 2016-06-07 14:21 | PDOC ---
Exam Solder Cream Maker Solder Cream Maker Annie Sprigger Sprigger Angeles Gibbs Pre-Procedure Diagnosis Pre-Procedure Diagnosis New ESRD. Needs HD access. Due to coagulopathy, temp HDC has been requested. Post-Procedure Diagnosis Post-Procedure Diagnosis Same Procedure Performed Procedure Performed Sono/fluoro guided temp HDC insertion. Type of Anesthesia Type of Anesthesia Local Estimated Blood Loss EBL: Minimal Drain/Tubes Drains/Tubes Right IJ 14F 20cm Schon temp HDC Condition of Patient Condition of Patient Stable. No apparent complication. Disposition Disposition From IR return to [facility]. F/u with Renal. OK to use temp HDC. Full report to follow. MISHEL GARCIA MD Jun 07, 2016 14:21
[2016-06-07 15:44] VITALS: BP 136/73
--- NOTE | 2016-06-07 16:36 | RAD ---
Ultrasound and fluoro guided right IJ temporary hemodialysis catheter Indication: 70-year-old male with new end-stage renal disease. Due to coagulopathy, tunneled dialysis catheter insertion was contraindicated. A temporary dialysis catheter has been requested by renal. Fluoro time: 0.3 minutes Kerma-Area Product: 3 Gycm2 Anesthesia: Local only Sterility: All elements of maximal sterile barrier technique, including the use of a cap, mask, sterile gown, sterile gloves, large sterile sheet, appropriate hand hygiene, and 2% chlorhexidine for cutaneous antisepsis (or acceptable alternative antiseptic per current guidelines) were utilized. Procedure: Informed consent was obtained from the patient. He was placed supine on the angiography table. Preliminary ultrasound examination of right neck revealed patency of right internal jugular vein, which was documented with a single hard copy ultrasound image. Right neck was then prepped and draped in the usual sterile fashion, utilizing all elements of maximal sterile barrier technique, as described above. Using aseptic technique, local anesthesia, direct ultrasound guidance, and the micropuncture system, successful percutaneous entry was achieved into right internal jugular vein. The right IJ venostomy tract was then dilated and a 14 Green[place]ic 20cm Schon temporary hemodialysis catheter was easily advanced centrally over an angiographic guidewire, and was positioned with its tip at the level of upper right atrium utilizing fluoroscopic guidance. This catheter was documented to flush and aspirate normally, was packed, and was secured at the right neck exit site utilizing suture and sterile dressing. Patient tolerated the procedure well without apparent complication. Satisfactory position of the dialysis catheter was confirmed with a single fluoroscopic spot image. Impression: Successful, uneventful ultrasound and fluoro guided placement of right IJ 14 Greenlandic 20cm Schon temporary hemodialysis catheter, as described.
[2016-06-07] MEDS ORDERED: DIALYSIS PATIENT. MC PRN (19:00)
[2016-06-07 19:26] VITALS: BP 139/64
[2016-06-07 23:07] VITALS: BP 143/70
[2016-06-08 03:11] VITALS: BP 144/69
[2016-06-08 04:52] LABS: BASO % 1 % (0-3); EOS % 0 % (0-3); HEMATOCRIT 29.5 % (39.0-53.0); HEMOGLOBIN 9.6 g/dL (13.0-17.5); LYMPH # 0.3 x10^3/uL (1.0-4.8); LYMPH % 6 % (24-48); MEAN CORPUSCULAR HEMOGLOBIN 32 pg (25-35); MEAN CORPUSCULAR HGB CONC 32 g/dL (31-37); MEAN CORPUSCULAR VOLUME 97 fL (79-100); MONO % 12 % (0-9); NEUT % 81 % (31-73); PLATELET COUNT 154 x10^3/uL (140-400); RED BLOOD COUNT 3.03 x10^6/uL (4.30-5.70); RED CELL DISTRIBUTION WIDTH 16.7 % (11.5-14.5)
[2016-06-08 05:17] LABS: CALCIUM 8.4 mg/dL (8.5-10.1); CREATININE 2.9 mg/dL (0.7-1.3); GFR 21.7; POTASSIUM 3.7 mmol/L (3.5-5.1)
[2016-06-08 07:00] VITALS: BP 131/69
[2016-06-08] MEDS: INSULIN ASPART 300 UNITS/3 ML INSULN.PEN SQ SCH ×3 (08:00→17:00)
[2016-06-08] MEDS: FUROSEMIDE 40 MG/4 ML VIAL IVP SCH (08:05)
[2016-06-08] MEDS ORDERED: IV NORMAL SALINE 1000ML BAG 1,000 ML IV PRN (08:41)
[2016-06-08] MEDS: ANTI-COAG MONITOR BY PHARMACY. MC PRN (08:43)
[2016-06-08] MEDS ORDERED: DIPHENHYDRAMINE 50 MG/ML VIAL IV PRN ×2 (08:45)
[2016-06-08] MEDS ORDERED: LABETALOL 20 MG/4 ML DISP.SYRIN. IVP PRN (08:45)
[2016-06-08] MEDS ORDERED: CLONIDINE HCL 0.1 MG TABLET PO PRN (08:45)
[2016-06-08] MEDS ORDERED: ACETAMINOPHEN 500 MG TABLET PO PRN (08:45)
[2016-06-08] MEDS ORDERED: DIALYSIS PATIENT. MC PRN (08:45)
[2016-06-08] MEDS ORDERED: ALBUMIN HUMAN 25% 200 ML IV PRN (08:45)
[2016-06-08] MEDS ORDERED: MIDODRINE 5 MG TABLET PO ONE (08:45)
[2016-06-08] MEDS: HYDRALAZINE 25 MG TABLET PO SCH ×3 (09:00→20:47)
[2016-06-08] MEDS: METOPROLOL SUCC 24HR ER 50 MG TAB.ER.24H. PO SCH ×2 (09:00→16:17)
[2016-06-08] MEDS: LOSARTAN POTASSIUM 50 MG TABLET. PO SCH (09:00)
[2016-06-08] MEDS: METOLAZONE 2.5 MG TABLET PO SCH (09:00)
--- NOTE | 2016-06-08 10:21 | PDOC ---
Renal-Progress Notes Subjective Notes Notes FEELING BETTER History of Present Illness Hx of present illness IMPROVING Vitals Vitals Vital Signs Date Time Temp Pulse Resp B/P Pulse Ox O2 Delivery O2 Flow Rate FiO2 06/08/16 07:00 98.5 92 18 131/69 92 Room Air 98.5 Weight Weight [ ] I.O. Intake and Output Intake and Output 06/08/16 07:00 Intake Total 636 ml Output Total 4525 ml Balance -3889 ml Intake Oral 400 ml IV Total 236 ml Output Urine Total 4475 ml Emesis 50 ml Labs Labs Laboratory Tests Test 06/07/16 10:59 06/07/16 20:34 06/08/16 03:30 Glucose (Fingerstick) 104mg/dL (70-99) 118mg/dL (70-99) White Blood Count 6.0x10^3/uL (4.0-11.0) Red Blood Count 3.03x10^6/uL (4.30-5.70) Hemoglobin 9.6g/dL (13.0-17.5) Hematocrit 29.5% (39.0-53.0) Mean Corpuscular Volume 97fL (79-100) Mean Corpuscular Hemoglobin 32pg (25-35) Mean Corpuscular Hemoglobin Concent 32g/dL (31-37) Red Cell Distribution Width 16.7% (11.5-14.5) Platelet Count 154x10^3/uL (140-400) Neutrophils (%) (Auto) 81% (31-73) Lymphocytes (%) (Auto) 6% (24-48) Monocytes (%) (Auto) 12% (0-9) Eosinophils (%) (Auto) 0% (0-3) Basophils (%) (Auto) 1% (0-3) Neutrophils # (Auto) 4.8x10^3uL (1.8-7.7) Lymphocytes # (Auto) 0.3x10^3/uL (1.0-4.8) Monocytes # (Auto) 0.7x10^3/uL (0.0-1.1) Eosinophils # (Auto) 0.0x10^3/uL (0.0-0.7) Basophils # (Auto) 0.0x10^3/uL (0.0-0.2) Sodium Level 140mmol/L (136-145) Potassium Level 3.7mmol/L (3.5-5.1) Chloride Level 104mmol/L (98-107) Carbon Dioxide Level 26mmol/L (21-32) Anion Gap 10 (6-14) Blood Urea Nitrogen 43mg/dL (8-26) Creatinine 2.9mg/dL (0.7-1.3) Estimated GFR (Cockcroft-Gault) 21.7 Glucose Level 123mg/dL (70-99) Calcium Level 8.4mg/dL (8.5-10.1) Review of Systems Constitutional: yes: alert, oriented, weakness Ears/Nose/Throat: Yes: no symptom reported Eyes: Yes: no symptom reported Pulmonary: Yes dyspnea Cardiovascular: Yes orthopnea, Yes edema Gastrointestional: Yes: constipation Genitourinary: Yes: no symptom reported Musculoskeletal: Yes: muscle stiffness Skin: Yes no symptom reported Physical Exam General Appearance: no apparent distress Skin: warm Respiratory: decreased breath sounds Heart: S1S2, RRR Abdomen: soft, bowel sounds present Neurology: alert, oriented, follow commands Assessment Assessment IMP CHF-SYSTOLIC AND RECURRENT NEW ESRD MILD HYPOKALEMIA-BETTER ANEMIA PROTEINURIA-ABOUT 2.4 GM A DAY DM II - ON INSULIN HX OF LEFT RENAL CA-FOLLOWED AT [facility] PLAN CONT PO LASIX STOP PO KCL ARANESP TUNNELED HD CATHETER ONCE COAGS ARE ACCEPTABLE HD TODAY UF ABOUT 3 LITERS TOLERATED OP HD BEING SET UP AT [facility] ZAMARRIPA MD Jun 08, 2016 10:21
[2016-06-08 11:00] VITALS: BP 135/78
[2016-06-08] MEDS: FUROSEMIDE 40 MG TABLET PO SCH (11:00)
[2016-06-08] MEDS: ALLOPURINOL 100 MG TABLET. PO SCH (12:33)
--- NOTE | 2016-06-08 13:38 | PDOC ---
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 he reports feeling less dyspneic after HD, he feels more clear mentally today Edema a little better Vitals Vitals Vital Signs Date Time Temp Pulse Resp B/P Pulse Ox O2 Delivery O2 Flow Rate FiO2 06/08/16 11:00 98.6 80 18 135/78 93 Room Air 98.6 Physical Exam General: Alert, Oriented X3, Cooperative, No acute distress Heart: Normal S1, Normal S2, No murmurs, Other ( ) Lungs: Clear Abdomen: Soft, No tenderness Extremities: No clubbing, No cyanosis, Other (persistent edema today; b/l charcot foot deformity) Skin: Other (ecchymosis left arm ) Labs LABS Laboratory Tests Test 06/07/16 20:34 06/08/16 03:30 06/08/16 12:20 Glucose (Fingerstick) 118mg/dL (70-99) 96mg/dL (70-99) White Blood Count 6.0x10^3/uL (4.0-11.0) Red Blood Count 3.03x10^6/uL (4.30-5.70) Hemoglobin 9.6g/dL (13.0-17.5) Hematocrit 29.5% (39.0-53.0) Mean Corpuscular Volume 97fL (79-100) Mean Corpuscular Hemoglobin 32pg (25-35) Mean Corpuscular Hemoglobin Concent 32g/dL (31-37) Red Cell Distribution Width 16.7% (11.5-14.5) Platelet Count 154x10^3/uL (140-400) Neutrophils (%) (Auto) 81% (31-73) Lymphocytes (%) (Auto) 6% (24-48) Monocytes (%) (Auto) 12% (0-9) Eosinophils (%) (Auto) 0% (0-3) Basophils (%) (Auto) 1% (0-3) Neutrophils # (Auto) 4.8x10^3uL (1.8-7.7) Lymphocytes # (Auto) 0.3x10^3/uL (1.0-4.8) Monocytes # (Auto) 0.7x10^3/uL (0.0-1.1) Eosinophils # (Auto) 0.0x10^3/uL (0.0-0.7) Basophils # (Auto) 0.0x10^3/uL (0.0-0.2) Sodium Level 140mmol/L (136-145) Potassium Level 3.7mmol/L (3.5-5.1) Chloride Level 104mmol/L (98-107) Carbon Dioxide Level 26mmol/L (21-32) Anion Gap 10 (6-14) Blood Urea Nitrogen 43mg/dL (8-26) Creatinine 2.9mg/dL (0.7-1.3) Estimated GFR (Cockcroft-Gault) 21.7 Glucose Level 123mg/dL (70-99) Calcium Level 8.4mg/dL (8.5-10.1) Review of Systems Review of Systems no n.v.d Assessment and Plan Assessmemt and Plan I discussed with Dr. Valencia. he would be willing to place tunned HD cath on saturday, if Eilquis held for 24 hours, and INR 1.8 or less PO vit K given today check INR saturday, hold Eliquis saturday for poss tunneled cath on saturday for DC for outpatient HD Problems: Comment Review of Relevant I have reviewed the following items jennifer (where applicable) has been applied. Labs Laboratory Tests Test 06/06/16 17:33 06/06/16 20:39 06/07/16 05:10 06/07/16 07:36 Glucose (Fingerstick) 104mg/dL (70-99) 172mg/dL (70-99) 112mg/dL (70-99) White Blood Count 9.0x10^3/uL (4.0-11.0) Red Blood Count 3.33x10^6/uL (4.30-5.70) Hemoglobin 10.5g/dL (13.0-17.5) Hematocrit 33.1% (39.0-53.0) Mean Corpuscular Volume 99fL (79-100) Mean Corpuscular Hemoglobin 31pg (25-35) Mean Corpuscular Hemoglobin Concent 32g/dL (31-37) Red Cell Distribution Width 17.0% (11.5-14.5) Platelet Count 183x10^3/uL (140-400) Neutrophils (%) (Auto) 84% (31-73) Lymphocytes (%) (Auto) 7% (24-48) Monocytes (%) (Auto) 7% (0-9) Eosinophils (%) (Auto) 1% (0-3) Basophils (%) (Auto) 1% (0-3) Neutrophils # (Auto) 7.6x10^3uL (1.8-7.7) Lymphocytes # (Auto) 0.6x10^3/uL (1.0-4.8) Monocytes # (Auto) 0.6x10^3/uL (0.0-1.1) Eosinophils # (Auto) 0.1x10^3/uL (0.0-0.7) Basophils # (Auto) 0.1x10^3/uL (0.0-0.2) Sodium Level 144mmol/L (136-145) Potassium Level 3.4mmol/L (3.5-5.1) Chloride Level 108mmol/L (98-107) Carbon Dioxide Level 23mmol/L (21-32) Anion Gap 13 (6-14) Blood Urea Nitrogen 70mg/dL (8-26) Creatinine 3.7mg/dL (0.7-1.3) Estimated GFR (Cockcroft-Gault) 16.4 Glucose Level 118mg/dL (70-99) Calcium Level 8.9mg/dL (8.5-10.1) Magnesium Level 2.1mg/dL (1.8-2.4) Hepatitis B Surface Antigen Negative (Negative) Test 06/07/16 10:59 06/07/16 20:34 06/08/16 03:30 06/08/16 12:20 Glucose (Fingerstick) 104mg/dL (70-99) 118mg/dL (70-99) 96mg/dL (70-99) White Blood Count 6.0x10^3/uL (4.0-11.0) Red Blood Count 3.03x10^6/uL (4.30-5.70) Hemoglobin 9.6g/dL (13.0-17.5) Hematocrit 29.5% (39.0-53.0) Mean Corpuscular Volume 97fL (79-100) Mean Corpuscular Hemoglobin 32pg (25-35) Mean Corpuscular Hemoglobin Concent 32g/dL (31-37) Red Cell Distribution Width 16.7% (11.5-14.5) Platelet Count 154x10^3/uL (140-400) Neutrophils (%) (Auto) 81% (31-73) Lymphocytes (%) (Auto) 6% (24-48) Monocytes (%) (Auto) 12% (0-9) Eosinophils (%) (Auto) 0% (0-3) Basophils (%) (Auto) 1% (0-3) Neutrophils # (Auto) 4.8x10^3uL (1.8-7.7) Lymphocytes # (Auto) 0.3x10^3/uL (1.0-4.8) Monocytes # (Auto) 0.7x10^3/uL (0.0-1.1) Eosinophils # (Auto) 0.0x10^3/uL (0.0-0.7) Basophils # (Auto) 0.0x10^3/uL (0.0-0.2) Sodium Level 140mmol/L (136-145) Potassium Level 3.7mmol/L (3.5-5.1) Chloride Level 104mmol/L (98-107) Carbon Dioxide Level 26mmol/L (21-32) Anion Gap 10 (6-14) Blood Urea Nitrogen 43mg/dL (8-26) Creatinine 2.9mg/dL (0.7-1.3) Estimated GFR (Cockcroft-Gault) 21.7 Glucose Level 123mg/dL (70-99) Calcium Level 8.4mg/dL (8.5-10.1) Laboratory Tests Test 06/07/16 20:34 06/08/16 03:30 06/08/16 12:20 Glucose (Fingerstick) 118mg/dL (70-99) 96mg/dL (70-99) White Blood Count 6.0x10^3/uL (4.0-11.0) Red Blood Count 3.03x10^6/uL (4.30-5.70) Hemoglobin 9.6g/dL (13.0-17.5) Hematocrit 29.5% (39.0-53.0) Mean Corpuscular Volume 97fL (79-100) Mean Corpuscular Hemoglobin 32pg (25-35) Mean Corpuscular Hemoglobin Concent 32g/dL (31-37) Red Cell Distribution Width 16.7% (11.5-14.5) Platelet Count 154x10^3/uL (140-400) Neutrophils (%) (Auto) 81% (31-73) Lymphocytes (%) (Auto) 6% (24-48) Monocytes (%) (Auto) 12% (0-9) Eosinophils (%) (Auto) 0% (0-3) Basophils (%) (Auto) 1% (0-3) Neutrophils # (Auto) 4.8x10^3uL (1.8-7.7) Lymphocytes # (Auto) 0.3x10^3/uL (1.0-4.8) Monocytes # (Auto) 0.7x10^3/uL (0.0-1.1) Eosinophils # (Auto) 0.0x10^3/uL (0.0-0.7) Basophils # (Auto) 0.0x10^3/uL (0.0-0.2) Sodium Level 140mmol/L (136-145) Potassium Level 3.7mmol/L (3.5-5.1) Chloride Level 104mmol/L (98-107) Carbon Dioxide Level 26mmol/L (21-32) Anion Gap 10 (6-14) Blood Urea Nitrogen 43mg/dL (8-26) Creatinine 2.9mg/dL (0.7-1.3) Estimated GFR (Cockcroft-Gault) 21.7 Glucose Level 123mg/dL (70-99) Calcium Level 8.4mg/dL (8.5-10.1) Medications Current Medications Heparin Sodium (Porcine) 5,000 unit Q8HRS SQ Last administered on 06/04/16 13: 44; Start 06/03/16 at 06:00; Stop 06/04/16 at 14:34; Status DC Furosemide (Lasix) 40 mg BID92 IVP Last administered on 06/07/16 11:02; Start 06/03/16 at 09:00; Stop 06/08/16 at 10:20; Status DC Allopurinol (Zyloprim) 200 mg DAILY PO Last administered on 06/08/16 12:33; Start 06/03/16 at 15:00 Dabigatran (Pradaxa) 75 mg BID PO Last administered on 06/07/16 00:07; Start 06/03/16 at 15:00; Stop 06/06/16 at 21:01; Status DC Diltiazem HCl (Cardizem 24hr Cd) 120 mg DAILY PO Last administered on 08:42; Start 06/03/16 at 15:00; Stop 06/05/16 at 15:46; Status DC Furosemide (Lasix) 40 mg BID92 PO ; Start 06/03/16 at 15:00; Stop 06/03/16 at 16 :42; Status DC Hydralazine HCl (Apresoline) 75 mg TID PO Last administered on 06/07/16 21:47 ; Start 06/03/16 at 15:00 Metoprolol Succinate (Toprol Xl) 50 mg DAILY PO Last administered on 06/07/16 11:06; Start 06/03/16 at 15:00 Non-Formulary Medication 100 unit prn SQ ; Start 06/03/16 at 14:15; Stop at 16:02; Status DC Non-Formulary Medication 100 unit prn SQ ; Start 06/03/16 at 14:15; Status UNV Losartan Potassium (Cozaar) 100 mg DAILY PO Last administered on 06/07/16 11: 04; Start 06/03/16 at 15:00 Potassium Chloride (Klor-Con) 20 meq DAILYWBKFT PO ; Start 06/03/16 at 15:00; Stop 06/03/16 at 16:42; Status DC Atorvastatin Calcium (Lipitor) 5 mg QHS PO Last administered on 06/07/16 21:48 ; Start 06/03/16 at 21:00 Torsemide (Demadex) 100 mg DAILY PO ; Start 06/03/16 at 15:00; Stop 06/03/16 at 16:42; Status DC Insulin Aspart (Novolog) 0-5 UNITS TIDWMEALS SQ Last administered on 06/05/16 18:02; Start 06/03/16 at 17:00 Dextrose 12.5 gm PRN Q15MIN PRN IV SEE COMMENTS; Start 06/03/16 at 16:00 Insulin Detemir (Levemir) 25 units QHS SQ Last administered on 06/07/16 21:45 ; Start 06/03/16 at 21:00 Potassium Chloride (Klor-Con) 20 meq BID PO Last administered on 06/07/16 21: 47; Start 06/03/16 at 21:00; Stop 06/08/16 at 10:20; Status DC Potassium Chloride (Klor-Con) 40 meq 1X ONCE PO Last administered on 11:45; Start 06/04/16 at 10:30; Stop 06/04/16 at 10:35; Status DC Acetaminophen/ Hydrocodone Bitart (Lortab 5/325) 1 tab PRN Q4HRS PRN PO MODERATE PAIN Last administered on 06/07/16 00:06; Start 06/04/16 at 22:00 Metolazone (Zaroxolyn) 5 mg DAILY PO Last administered on 06/07/16 11:03; Start 06/05/16 at 16:00 Info (Anti-Coagulation Monitoring By Pharmacy) 1 each PRN DAILY PRN MC SEE COMMENTS Last administered on 06/08/16 08:43; Start 06/06/16 at 08:00 Regadenoson (Lexiscan) 0.4 mg 1X ONCE IV Last administered on 06/06/16 08:33 ; Start 06/06/16 at 08:15; Stop 06/06/16 at 08:16; Status DC Albuterol/ Ipratropium (Duoneb) 3 ml PRN Q4HRS PRN NEB SHORTNESS OF BREATH Last administered on 06/06/16 11:16; Start 06/06/16 at 10:45 Apixaban (Eliquis) 5 mg BID PO Last administered on 06/07/16 21:47; Start at 09:00; Stop 06/08/16 at 10:50; Status DC Midazolam HCl (Versed) 5 mg STK-MED ONCE .ROUTE ; Start 06/06/16 at 13:53; Stop 06/06/16 at 13:54; Status DC Fentanyl Citrate 250 mcg 250 mcg STK-MED ONCE .ROUTE ; Start 06/06/16 at 13:53; Stop 06/06/16 at 13:54; Status DC Dobutamine HCl/ Dextrose 250 ml @ 0 mls/hr CONT PRN IV SEE I/O RECORD Last administered on 06/07/16 21:50; Start 06/06/16 at 16:30 Potassium Chloride (Klor-Con) 40 meq 1X ONCE PO Last administered on 15:33; Start 06/07/16 at 12:45; Stop 06/07/16 at 12:48; Status DC Hydralazine HCl (Apresoline) 10 mg PRN Q4HRS PRN IVP ELEVATED BP, SEE COMMENTS ; Start 06/07/16 at 13:00 Lidocaine/Sodium Bicarbonate (Buffered Lidocaine 1%) 20 ml STK-MED ONCE IJ ; Start 06/07/16 at 13:20; Stop 06/07/16 at 13:21; Status DC Heparin Sodium (Porcine) 56898 unit 10,000 unit STK-MED ONCE .ROUTE ; Start at 13:20; Stop 06/07/16 at 13:21; Status DC Heparin Sodium/ Sodium Chloride 500 ml @ As Directed STK-MED ONCE .ROUTE ; Start 06/07/16 at 13:20; Stop 06/07/16 at 13:21; Status DC Lidocaine/Sodium Bicarbonate (Buffered Lidocaine 1%) 3 ml 1X ONCE IJ Last administered on 06/07/16 13:45; Start 06/07/16 at 13:45; Stop 06/07/16 at 13:46 ; Status DC Heparin Sodium/ Sodium Chloride 60 unit 1X ONCE IV Last administered on 13:45; Start 06/07/16 at 13:45; Stop 06/07/16 at 13:46; Status DC Heparin Sodium (Porcine) 2,400 unit 1X ONCE INT CAT Last administered on 13:45; Start 06/07/16 at 13:45; Stop 06/07/16 at 13:46; Status DC Info 1 each 1 each PRN DAILY PRN MC SEE COMMENTS; Start 06/07/16 at 19:00 Sodium Chloride 1,000 ml @ 1,000 mls/hr Q1H PRN IV hypotension; Start 06/08/16 at 08:41; Stop 06/08/16 at 14:40 Albumin Human (Albuminar) 200 ml @ 200 mls/hr 1X PRN PRN IV Hypotension; Start 06/08/16 at 08:45; Stop 06/08/16 at 14:44 Midodrine (Proamatine) 5 mg 1X ONCE PO ; Start 06/08/16 at 08:45; Stop at 08:49; Status DC Acetaminophen (Tylenol) 500 mg 1X PRN PRN PO MILD PAIN / TEMP; Start 06/08/16 at 08:45; Stop 06/09/16 at 08:44 Diphenhydramine HCl (Benadryl) 25 mg 1X PRN PRN IV ITCHING; Start 06/08/16 at 08:45; Stop 06/09/16 at 08:44 Diphenhydramine HCl (Benadryl) 25 mg 1X PRN PRN IV ITCHING; Start 06/08/16 at 08:45; Stop 06/09/16 at 08:44 Labetalol HCl (Normodyne) 10 mg PRN Q1HR PRN IVP SBP > 180; Start 06/08/16 at 08:45; Stop 06/09/16 at 08:44 Clonidine HCl (Catapres) 0.1 mg 1X PRN PRN PO SBP > 180; Start 06/08/16 at 08: 45; Stop 06/09/16 at 08:44 Info (PHARMACY MONITORING -- do not chart) 1 each PRN DAILY PRN MC SEE COMMENTS ; Start 06/08/16 at 08:45 Darbepoetin Jose (Aranesp) 60 mcg WEEKLYHS SQ ; Start 06/08/16 at 21:00 Furosemide (Lasix) 40 mg DAILY PO ; Start 06/08/16 at 11:00 Active Scripts Active Reported Furosemide 40 Mg Tablet 40 Mg PO BID Hydralazine Hcl 25 Mg Tablet 75 Mg PO TID Pradaxa (Dabigatran Etexilate Mesylate) 75 Mg Capsule 75 Mg PO BID Metolazone 2.5 Mg Tablet 2.5 Mg PO THREE TIMES A WEEK Allopurinol 100 Mg Tablet 200 Mg PO DAILY Potassium Chloride 20 Meq Tablet.er 20 Meq PO DAILY Toprol Xl (Metoprolol Succinate) 50 Mg Tab.er.24h 50 Mg PO DAILY Levemir (Insulin Detemir) 100 Unit/1 Ml Vial 25 Unit SQ QHS Losartan Potassium 100 Mg Tablet 100 Mg PO DAILY Pravastatin Sodium 20 Mg Tablet 20 Mg PO DAILY Torsemide 100 Mg Tablet 100 Mg PO DAILY Novolog (Insulin Aspart) 100 Unit/1 Ml Cartridge 100 Unit SQ PRN Diltiazem 24HR Er (Diltiazem Hcl) 120 Mg Cap.er.24h 120 Mg PO DAILY Vitals/I & O Vital Sign - Last 24 Hours 06/07/16 06/07/16 06/07/16 06/07/16 15:33 15:44 19:26 20:10 Temp 98.0 98.8 98.0 98.8 Pulse 72 105 60 Resp 20 20 B/P 159/75 136/73 139/64 Pulse Ox 92 94 O2 Delivery Room Air Room Air Room Air 06/07/16 06/07/16 06/08/16 06/08/16 21:47 23:07 03:11 07:00 Temp 98.4 99.0 98.5 98.4 99.0 98.5 Pulse 92 97 90 92 Resp 20 18 18 B/P 139/73 143/70 144/69 131/69 Pulse Ox 94 93 92 O2 Delivery Room Air Room Air Room Air 06/08/16 11:00 Temp 98.6 98.6 Pulse 80 Resp 18 B/P 135/78 Pulse Ox 93 O2 Delivery Room Air Intake and Output 06/07/16 06/07/16 06/08/16 15:00 23:00 07:00 Intake Total 636 ml Output Total 800 ml 2500 ml 1225 ml Balance -800 ml -1864 ml -1225 ml RICKEY ISRAEL MD Jun 08, 2016 13:38
[2016-06-08] MEDS ORDERED: PHYTONADIONE 5 MG TABLET PO ONE (14:00)
[2016-06-08 15:00] VITALS: BP 116/64
--- NOTE | 2016-06-08 15:59 | PDOC ---
EVELYN FARFAN DATA TECHNICAL LEAD 06/08/16 1559: CARDIO Progress Notes Date and Time Date of Service 06/08/15 Time of Evaluation 1330 Subjective Subjective: No Chest Pain, No Palpitations, No Dizziness, Other (feels better today, less SOA. HD initiated yesterday) Vitals Vitals Vital Signs Date Time Temp Pulse Resp B/P Pulse Ox O2 Delivery O2 Flow Rate FiO2 06/08/16 15:00 88 116/64 06/08/16 13:00 Room Air 06/08/16 11:00 98.6 18 93 98.6 Weight Weight [ ] Input and Output Intake and Output Intake and Output 06/08/16 07:00 Intake Total 636 ml Output Total 4775 ml Balance -4139 ml Intake Oral 400 ml IV Total 236 ml Output Urine Total 4725 ml Emesis 50 ml Laboratory Labs Laboratory Tests Test 06/07/16 20:34 06/08/16 03:30 06/08/16 12:20 Glucose (Fingerstick) 118mg/dL (70-99) 96mg/dL (70-99) White Blood Count 6.0x10^3/uL (4.0-11.0) Red Blood Count 3.03x10^6/uL (4.30-5.70) Hemoglobin 9.6g/dL (13.0-17.5) Hematocrit 29.5% (39.0-53.0) Mean Corpuscular Volume 97fL (79-100) Mean Corpuscular Hemoglobin 32pg (25-35) Mean Corpuscular Hemoglobin Concent 32g/dL (31-37) Red Cell Distribution Width 16.7% (11.5-14.5) Platelet Count 154x10^3/uL (140-400) Neutrophils (%) (Auto) 81% (31-73) Lymphocytes (%) (Auto) 6% (24-48) Monocytes (%) (Auto) 12% (0-9) Eosinophils (%) (Auto) 0% (0-3) Basophils (%) (Auto) 1% (0-3) Neutrophils # (Auto) 4.8x10^3uL (1.8-7.7) Lymphocytes # (Auto) 0.3x10^3/uL (1.0-4.8) Monocytes # (Auto) 0.7x10^3/uL (0.0-1.1) Eosinophils # (Auto) 0.0x10^3/uL (0.0-0.7) Basophils # (Auto) 0.0x10^3/uL (0.0-0.2) Sodium Level 140mmol/L (136-145) Potassium Level 3.7mmol/L (3.5-5.1) Chloride Level 104mmol/L (98-107) Carbon Dioxide Level 26mmol/L (21-32) Anion Gap 10 (6-14) Blood Urea Nitrogen 43mg/dL (8-26) Creatinine 2.9mg/dL (0.7-1.3) Estimated GFR (Cockcroft-Gault) 21.7 Glucose Level 123mg/dL (70-99) Calcium Level 8.4mg/dL (8.5-10.1) Review of Systems Constitutional: yes: alert, oriented, weakness Ears/Nose/Throat: Yes: no symptom reported Eyes: Yes: no symptom reported Pulmonary: Yes dyspnea Cardiovascular: Yes orthopnea, Yes edema Gastrointestional: Yes: constipation Genitourinary: Yes: no symptom reported Musculoskeletal: Yes: muscle stiffness Skin: Yes no symptom reported Physical Exam HEENT: Neck Supple W Full Motion Chest: Symmetric LUNGS: Clear to Auscultation, Other (diminished bases ) Heart: S1S2, irregularly irregular (AFIB with occasional PVCs. ) Abdomen: Soft N/T Extremities: Other (2-3+ pitting bilateral LE ) Neurology: alert, oriented, follow commands Assessment Assessment 1. 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 HD initiated 04/07. Appears better. Repeat echo notable for LVEF of 25-30%. Continue optimization therapy with diuretics per renal Fluid offloading in HD per nephrology 2. Hypertension controlled. Continue with current therapy 3. Permanent AFIB rate controlled presently controlled with BB. Uptitrate as warranted resume Eliquis for stroke prophylaxis 4. Mildly elevated troponin with h/o mild nonobstructive CAD peak 0.094. type II, demand ischemia in the setting of SARAH/CKD MPI noted with small to moderate infarction involving the base to mid lateral wall without any significant ischemia. Continue with secondary prevention 5. 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 Optimization as above. Consider LifeVest at discharge. Re-evaluate LVEF in 3 months post optimization period and note AICD need. 6. Hyperlipidemia statin therapy. 7. Diabetes type 2 per PCP 8. New ESRD HD initiated per nephrology 9. Renal cell carcinoma LEX BAZZI MD 06/08/16 1632: CARDIO Progress Notes Assessment Assessment Patient seen and examined. Agree with SOCK BOARDER's assessment and plan. Continue fluid removal with HD for acute on chronic systolic heart failure. Repeat 2D echo in 3 months to evaluate the need for AICD implantation. EVELYN FARFAN APRN Jun 08, 2016 15:59 LEX BAZZI MD Jun 08, 2016 16:32
[2016-06-08] MEDS: HYDROCODONE/APAP 5/325MG TABLET. PO PRN (16:17)
[2016-06-08 19:35] VITALS: BP 140/81
[2016-06-08] MEDS: APIXABAN 5 MG TABLET. PO SCH (20:46)
[2016-06-08] MEDS: ATORVASTATIN CALCIUM 10 MG TABLET. PO SCH (20:47)
[2016-06-08] MEDS: INSULIN DETEMIR 300 UNITS/3 ML INSULN.PEN. SQ SCH (20:49)
[2016-06-08] MEDS ORDERED: APIXABAN 5 MG TABLET. PO SCH (21:00)
[2016-06-08] MEDS ORDERED: DARBEPOETIN ALFA 60 MCG/0.3 ML DISP.SYRIN. SQ SCH (21:00)
[2016-06-08 23:32] VITALS: BP 146/83
[2016-06-09 03:10] VITALS: BP 150/93
[2016-06-09 05:27] LABS: BASO % 1 % (0-3); EOS % 0 % (0-3); HEMATOCRIT 32.8 % (39.0-53.0); HEMOGLOBIN 10.5 g/dL (13.0-17.5); LYMPH # 0.6 x10^3/uL (1.0-4.8); LYMPH % 9 % (24-48); MEAN CORPUSCULAR HEMOGLOBIN 31 pg (25-35); MEAN CORPUSCULAR HGB CONC 32 g/dL (31-37); MEAN CORPUSCULAR VOLUME 98 fL (79-100); MONO % 12 % (0-9); NEUT % 78 % (31-73); PLATELET COUNT 158 x10^3/uL (140-400); RED BLOOD COUNT 3.35 x10^6/uL (4.30-5.70); RED CELL DISTRIBUTION WIDTH 16.9 % (11.5-14.5); WHITE BLOOD COUNT 6.3 x10^3/uL (4.0-11.0)
[2016-06-09 05:48] LABS: CALCIUM 8.6 mg/dL (8.5-10.1); CREATININE 2.8 mg/dL (0.7-1.3); GFR 22.6; POTASSIUM 3.4 mmol/L (3.5-5.1)
[2016-06-09 07:59] VITALS: BP 141/79
[2016-06-09] MEDS: INSULIN ASPART 300 UNITS/3 ML INSULN.PEN SQ SCH ×3 (08:00→17:00)
[2016-06-09] MEDS: METOPROLOL SUCC 24HR ER 50 MG TAB.ER.24H. PO SCH (08:59)
[2016-06-09] MEDS: LOSARTAN POTASSIUM 50 MG TABLET. PO SCH (08:59)
[2016-06-09] MEDS: HYDRALAZINE 25 MG TABLET PO SCH ×3 (09:00→21:13)
[2016-06-09] MEDS: FUROSEMIDE 40 MG TABLET PO SCH (09:00)
[2016-06-09] MEDS: METOLAZONE 2.5 MG TABLET PO SCH (09:00)
[2016-06-09] MEDS: ALLOPURINOL 100 MG TABLET. PO SCH (09:00)
[2016-06-09] MEDS: APIXABAN 5 MG TABLET. PO SCH ×2 (09:01→21:12)
[2016-06-09 10:26] VITALS: BP 138/77
--- NOTE | 2016-06-09 10:46 | PDOC ---
Renal-Progress Notes Subjective Notes Notes FEELING BETTER History of Present Illness Hx of present illness BETTER Vitals Vitals Vital Signs Date Time Temp Pulse Resp B/P Pulse Ox O2 Delivery O2 Flow Rate FiO2 06/09/16 10:26 99.0 80 21 138/77 93 Room Air 99.0 Weight Weight [ ] I.O. Intake and Output Intake and Output 06/09/16 07:00 Intake Total 620 ml Output Total 0 ml Balance 620 ml Intake Oral 620 ml Output Urine Total 0 ml Labs Labs Laboratory Tests Test 06/08/16 12:20 06/08/16 17:11 06/08/16 20:45 06/09/16 04:15 Glucose (Fingerstick) 96mg/dL (70-99) 131mg/dL (70-99) 155mg/dL (70-99) White Blood Count 6.3x10^3/uL (4.0-11.0) Red Blood Count 3.35x10^6/uL (4.30-5.70) Hemoglobin 10.5g/dL (13.0-17.5) Hematocrit 32.8% (39.0-53.0) Mean Corpuscular Volume 98fL (79-100) Mean Corpuscular Hemoglobin 31pg (25-35) Mean Corpuscular Hemoglobin Concent 32g/dL (31-37) Red Cell Distribution Width 16.9% (11.5-14.5) Platelet Count 158x10^3/uL (140-400) Neutrophils (%) (Auto) 78% (31-73) Lymphocytes (%) (Auto) 9% (24-48) Monocytes (%) (Auto) 12% (0-9) Eosinophils (%) (Auto) 0% (0-3) Basophils (%) (Auto) 1% (0-3) Neutrophils # (Auto) 4.9x10^3uL (1.8-7.7) Lymphocytes # (Auto) 0.6x10^3/uL (1.0-4.8) Monocytes # (Auto) 0.8x10^3/uL (0.0-1.1) Eosinophils # (Auto) 0.0x10^3/uL (0.0-0.7) Basophils # (Auto) 0.0x10^3/uL (0.0-0.2) Sodium Level 140mmol/L (136-145) Potassium Level 3.4mmol/L (3.5-5.1) Chloride Level 102mmol/L (98-107) Carbon Dioxide Level 29mmol/L (21-32) Anion Gap 9 (6-14) Blood Urea Nitrogen 35mg/dL (8-26) Creatinine 2.8mg/dL (0.7-1.3) Estimated GFR (Cockcroft-Gault) 22.6 Glucose Level 114mg/dL (70-99) Calcium Level 8.6mg/dL (8.5-10.1) Test 06/09/16 08:03 Glucose (Fingerstick) 96mg/dL (70-99) Review of Systems Constitutional: yes: alert, oriented, weakness Ears/Nose/Throat: Yes: no symptom reported Eyes: Yes: no symptom reported Pulmonary: Yes dyspnea Cardiovascular: Yes orthopnea, Yes edema Gastrointestional: Yes: constipation Genitourinary: Yes: no symptom reported Musculoskeletal: Yes: muscle stiffness Skin: Yes no symptom reported Physical Exam General Appearance: no apparent distress Skin: warm Respiratory: decreased breath sounds Heart: S1S2, RRR Abdomen: soft, bowel sounds present Neurology: alert, oriented, follow commands Assessment Assessment IMP CHF-SYSTOLIC AND RECURRENT NEW ESRD MILD HYPOKALEMIA-BETTER ANEMIA PROTEINURIA-ABOUT 2.4 GM A DAY DM II - ON INSULIN HX OF LEFT RENAL CA-FOLLOWED AT [facility] PLAN CONT PO LASIX ARANESP TUNNELED HD CATHETER ONCE COAGS ARE ACCEPTABLE HD AGAIN TODAY UF ABOUT 3 LITERS TOLERATED OP HD BEING SET UP AT [facility] ZAMARRIPA MD Jun 09, 2016 10:46
[2016-06-09] MEDS ORDERED: IV NORMAL SALINE 1000ML BAG 1,000 ML IV PRN ×2 (11:31)
[2016-06-09] MEDS ORDERED: DIALYSIS PATIENT. MC PRN ×2 (11:45)
[2016-06-09] MEDS ORDERED: ALBUMIN HUMAN 25% 200 ML IV PRN (11:45)
--- NOTE | 2016-06-09 12:14 | PDOC ---
PROGRESS NOTES Subjective Subjective Patient feeling better today. Dyspnea and edema improved. Objective Objective Vital Signs Date Time Temp Pulse Resp B/P Pulse Ox O2 Delivery O2 Flow Rate FiO2 06/09/16 10:26 99.0 80 21 138/77 93 Room Air 99.0 Intake and Output 06/09/16 07:00 Intake Total 620 ml Output Total 0 ml Balance 620 ml Intake Oral 620 ml Output Urine Total 0 ml Physical Exam Abdomen: Soft, No tenderness Heart: Normal S1, Normal S2, No murmurs, Other ( ) Extremities: No clubbing, No cyanosis, Other (persistent edema today; b/l charcot foot deformity) General: Alert, Oriented X3, Cooperative, No acute distress HEENT: Atraumatic, PERRLA Lungs: Other (bilateral basal crepitations) Psych/Mental Status: Mood NL Skin: Other (ecchymosis left arm ) Assessment Assessment 1. Acute on chronic systolic heart failure HD initiated 04/07. Appears better. Repeat echo notable for LVEF of 25-30%. Fluid offloading in HD per nephrology Repeat 2-D echo in 3 months to evaluate the need for AICD implantation for primary prevention of SCD. 2. Hypertension controlled. Continue with current therapy 3. Permanent AFIB rate controlled presently controlled with BB. Eliquis for stroke prophylaxis 4. Mildly elevated troponin with h/o mild nonobstructive CAD peak 0.094. type II, demand ischemia in the setting of SARAH/CKD MPI noted with small to moderate infarction involving the base to mid lateral wall without any significant ischemia. Continue with secondary prevention 5. Hyperlipidemia statin therapy. 6. Diabetes type 2 per PCP 7. New ESRD HD initiated per nephrology 8. Renal cell carcinoma Comment Review of Relevant I have reviewed the following items jennifer (where applicable) has been applied. Labs Laboratory Tests Test 06/08/16 12:20 06/08/16 17:11 06/08/16 20:45 06/09/16 04:15 Glucose (Fingerstick) 96mg/dL (70-99) 131mg/dL (70-99) 155mg/dL (70-99) White Blood Count 6.3x10^3/uL (4.0-11.0) Red Blood Count 3.35x10^6/uL (4.30-5.70) Hemoglobin 10.5g/dL (13.0-17.5) Hematocrit 32.8% (39.0-53.0) Mean Corpuscular Volume 98fL (79-100) Mean Corpuscular Hemoglobin 31pg (25-35) Mean Corpuscular Hemoglobin Concent 32g/dL (31-37) Red Cell Distribution Width 16.9% (11.5-14.5) Platelet Count 158x10^3/uL (140-400) Neutrophils (%) (Auto) 78% (31-73) Lymphocytes (%) (Auto) 9% (24-48) Monocytes (%) (Auto) 12% (0-9) Eosinophils (%) (Auto) 0% (0-3) Basophils (%) (Auto) 1% (0-3) Neutrophils # (Auto) 4.9x10^3uL (1.8-7.7) Lymphocytes # (Auto) 0.6x10^3/uL (1.0-4.8) Monocytes # (Auto) 0.8x10^3/uL (0.0-1.1) Eosinophils # (Auto) 0.0x10^3/uL (0.0-0.7) Basophils # (Auto) 0.0x10^3/uL (0.0-0.2) Sodium Level 140mmol/L (136-145) Potassium Level 3.4mmol/L (3.5-5.1) Chloride Level 102mmol/L (98-107) Carbon Dioxide Level 29mmol/L (21-32) Anion Gap 9 (6-14) Blood Urea Nitrogen 35mg/dL (8-26) Creatinine 2.8mg/dL (0.7-1.3) Estimated GFR (Cockcroft-Gault) 22.6 Glucose Level 114mg/dL (70-99) Calcium Level 8.6mg/dL (8.5-10.1) Test 06/09/16 08:03 06/09/16 10:52 Glucose (Fingerstick) 96mg/dL (70-99) 166mg/dL (70-99) Medications Current Medications Albumin Human 200 ml @ 200 mls/hr 1X PRN PRN IV Hypotension; Start 06/09/16 at 11:45; Stop 06/09/16 at 17:44 Apixaban (Eliquis) 5 mg BID PO Last administered on 06/09/16 09:01; Start at 21:00 Apixaban 5 mg 5 mg BID PO ; Start 06/08/16 at 21:00; Status UNV Darbepoetin Jose (Aranesp) 60 mcg WEEKLYHS SQ Last administered on 06/08/16 20 :46; Start 06/08/16 at 21:00 Info (PHARMACY MONITORING -- do not chart) 1 each PRN DAILY PRN MC SEE COMMENTS ; Start 06/09/16 at 11:45; Status UNV Info (PHARMACY MONITORING -- do not chart) 1 each PRN DAILY PRN MC SEE COMMENTS ; Start 06/09/16 at 11:45; Status UNV Phytonadione (Mephyton) 2.5 mg 1X ONCE PO Last administered on 06/08/16 14:57 ; Start 06/08/16 at 14:00; Stop 06/08/16 at 14:01; Status DC Sodium Chloride 1,000 ml @ 1,000 mls/hr Q1H PRN IV hypotension; Start 06/09/16 at 11:31; Stop 06/09/16 at 17:30 Sodium Chloride (Iv Sodium Chloride 0.9% 1000ml Bag) 1,000 ml @ 400 mls/hr Q2H30M PRN IV PATENCY; Start 06/09/16 at 11:31; Stop 06/09/16 at 23:30 Vitals/I & O Vital Sign - Last 24 Hours 06/08/16 06/08/16 06/08/16 06/08/16 13:00 14:00 15:00 16:17 Pulse 88 88 86 B/P 116/71 116/64 124/70 O2 Delivery Room Air 06/08/16 06/08/16 06/08/16 06/08/16 16:17 17:17 19:35 19:53 Temp 98.2 98.2 Pulse 85 Resp 18 21 B/P 140/81 Pulse Ox 93 91 O2 Delivery Room Air Room Air Room Air Room Air 06/08/16 06/08/16 06/09/16 06/09/16 20:47 23:32 03:10 07:59 Temp 98.6 97.9 98.2 98.6 97.9 98.2 Pulse 85 84 73 86 Resp 20 26 20 B/P 140/81 146/83 150/93 141/79 Pulse Ox 95 92 94 O2 Delivery Room Air Room Air Room Air 06/09/16 06/09/16 06/09/16 06/09/16 08:59 08:59 09:00 10:26 Temp 99.0 99.0 Pulse 86 86 86 80 Resp 21 B/P 141/79 141/79 141/79 138/77 Pulse Ox 93 O2 Delivery Room Air Intake and Output 06/08/16 06/08/16 06/09/16 15:00 23:00 07:00 Intake Total 220 ml 400 ml Output Total 0 ml 0 ml Balance 220 ml 400 ml 0 ml LEX BAZZI MD Jun 09, 2016 12:14
--- NOTE | 2016-06-09 13:16 | PDOC ---
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 he reports feeling less dyspneic after HD, he feels more clear mentally today Edema a little better Vitals Vitals Vital Signs Date Time Temp Pulse Resp B/P Pulse Ox O2 Delivery O2 Flow Rate FiO2 06/09/16 10:26 99.0 80 21 138/77 93 Room Air 99.0 Physical Exam General: Alert, Oriented X3, Cooperative, No acute distress Heart: Normal S1, Normal S2, No murmurs, Other ( ) Lungs: Clear Abdomen: Soft, No tenderness Extremities: No clubbing, No cyanosis, Other (persistent edema today; b/l charcot foot deformity) Skin: No rashes, Other (ecchymosis left arm ) Labs LABS Laboratory Tests Test 06/08/16 17:11 06/08/16 20:45 06/09/16 04:15 06/09/16 08:03 Glucose (Fingerstick) 131mg/dL (70-99) 155mg/dL (70-99) 96mg/dL (70-99) White Blood Count 6.3x10^3/uL (4.0-11.0) Red Blood Count 3.35x10^6/uL (4.30-5.70) Hemoglobin 10.5g/dL (13.0-17.5) Hematocrit 32.8% (39.0-53.0) Mean Corpuscular Volume 98fL (79-100) Mean Corpuscular Hemoglobin 31pg (25-35) Mean Corpuscular Hemoglobin Concent 32g/dL (31-37) Red Cell Distribution Width 16.9% (11.5-14.5) Platelet Count 158x10^3/uL (140-400) Neutrophils (%) (Auto) 78% (31-73) Lymphocytes (%) (Auto) 9% (24-48) Monocytes (%) (Auto) 12% (0-9) Eosinophils (%) (Auto) 0% (0-3) Basophils (%) (Auto) 1% (0-3) Neutrophils # (Auto) 4.9x10^3uL (1.8-7.7) Lymphocytes # (Auto) 0.6x10^3/uL (1.0-4.8) Monocytes # (Auto) 0.8x10^3/uL (0.0-1.1) Eosinophils # (Auto) 0.0x10^3/uL (0.0-0.7) Basophils # (Auto) 0.0x10^3/uL (0.0-0.2) Sodium Level 140mmol/L (136-145) Potassium Level 3.4mmol/L (3.5-5.1) Chloride Level 102mmol/L (98-107) Carbon Dioxide Level 29mmol/L (21-32) Anion Gap 9 (6-14) Blood Urea Nitrogen 35mg/dL (8-26) Creatinine 2.8mg/dL (0.7-1.3) Estimated GFR (Cockcroft-Gault) 22.6 Glucose Level 114mg/dL (70-99) Calcium Level 8.6mg/dL (8.5-10.1) Test 06/09/16 10:52 Glucose (Fingerstick) 166mg/dL (70-99) Assessment and Plan Assessmemt and Plan HD today feels better, dropping 3 liters, day weight daily HOLD the anticoag on saturday, plan tunneled cath on saturday Problems: Comment Review of Relevant I have reviewed the following items jennifer (where applicable) has been applied. Labs Laboratory Tests Test 06/07/16 20:34 06/08/16 03:30 06/08/16 12:20 06/08/16 17:11 Glucose (Fingerstick) 118mg/dL (70-99) 96mg/dL (70-99) 131mg/dL (70-99) White Blood Count 6.0x10^3/uL (4.0-11.0) Red Blood Count 3.03x10^6/uL (4.30-5.70) Hemoglobin 9.6g/dL (13.0-17.5) Hematocrit 29.5% (39.0-53.0) Mean Corpuscular Volume 97fL (79-100) Mean Corpuscular Hemoglobin 32pg (25-35) Mean Corpuscular Hemoglobin Concent 32g/dL (31-37) Red Cell Distribution Width 16.7% (11.5-14.5) Platelet Count 154x10^3/uL (140-400) Neutrophils (%) (Auto) 81% (31-73) Lymphocytes (%) (Auto) 6% (24-48) Monocytes (%) (Auto) 12% (0-9) Eosinophils (%) (Auto) 0% (0-3) Basophils (%) (Auto) 1% (0-3) Neutrophils # (Auto) 4.8x10^3uL (1.8-7.7) Lymphocytes # (Auto) 0.3x10^3/uL (1.0-4.8) Monocytes # (Auto) 0.7x10^3/uL (0.0-1.1) Eosinophils # (Auto) 0.0x10^3/uL (0.0-0.7) Basophils # (Auto) 0.0x10^3/uL (0.0-0.2) Sodium Level 140mmol/L (136-145) Potassium Level 3.7mmol/L (3.5-5.1) Chloride Level 104mmol/L (98-107) Carbon Dioxide Level 26mmol/L (21-32) Anion Gap 10 (6-14) Blood Urea Nitrogen 43mg/dL (8-26) Creatinine 2.9mg/dL (0.7-1.3) Estimated GFR (Cockcroft-Gault) 21.7 Glucose Level 123mg/dL (70-99) Calcium Level 8.4mg/dL (8.5-10.1) Test 06/08/16 20:45 06/09/16 04:15 06/09/16 08:03 06/09/16 10:52 Glucose (Fingerstick) 155mg/dL (70-99) 96mg/dL (70-99) 166mg/dL (70-99) White Blood Count 6.3x10^3/uL (4.0-11.0) Red Blood Count 3.35x10^6/uL (4.30-5.70) Hemoglobin 10.5g/dL (13.0-17.5) Hematocrit 32.8% (39.0-53.0) Mean Corpuscular Volume 98fL (79-100) Mean Corpuscular Hemoglobin 31pg (25-35) Mean Corpuscular Hemoglobin Concent 32g/dL (31-37) Red Cell Distribution Width 16.9% (11.5-14.5) Platelet Count 158x10^3/uL (140-400) Neutrophils (%) (Auto) 78% (31-73) Lymphocytes (%) (Auto) 9% (24-48) Monocytes (%) (Auto) 12% (0-9) Eosinophils (%) (Auto) 0% (0-3) Basophils (%) (Auto) 1% (0-3) Neutrophils # (Auto) 4.9x10^3uL (1.8-7.7) Lymphocytes # (Auto) 0.6x10^3/uL (1.0-4.8) Monocytes # (Auto) 0.8x10^3/uL (0.0-1.1) Eosinophils # (Auto) 0.0x10^3/uL (0.0-0.7) Basophils # (Auto) 0.0x10^3/uL (0.0-0.2) Sodium Level 140mmol/L (136-145) Potassium Level 3.4mmol/L (3.5-5.1) Chloride Level 102mmol/L (98-107) Carbon Dioxide Level 29mmol/L (21-32) Anion Gap 9 (6-14) Blood Urea Nitrogen 35mg/dL (8-26) Creatinine 2.8mg/dL (0.7-1.3) Estimated GFR (Cockcroft-Gault) 22.6 Glucose Level 114mg/dL (70-99) Calcium Level 8.6mg/dL (8.5-10.1) Laboratory Tests Test 06/08/16 17:11 06/08/16 20:45 06/09/16 04:15 06/09/16 08:03 Glucose (Fingerstick) 131mg/dL (70-99) 155mg/dL (70-99) 96mg/dL (70-99) White Blood Count 6.3x10^3/uL (4.0-11.0) Red Blood Count 3.35x10^6/uL (4.30-5.70) Hemoglobin 10.5g/dL (13.0-17.5) Hematocrit 32.8% (39.0-53.0) Mean Corpuscular Volume 98fL (79-100) Mean Corpuscular Hemoglobin 31pg (25-35) Mean Corpuscular Hemoglobin Concent 32g/dL (31-37) Red Cell Distribution Width 16.9% (11.5-14.5) Platelet Count 158x10^3/uL (140-400) Neutrophils (%) (Auto) 78% (31-73) Lymphocytes (%) (Auto) 9% (24-48) Monocytes (%) (Auto) 12% (0-9) Eosinophils (%) (Auto) 0% (0-3) Basophils (%) (Auto) 1% (0-3) Neutrophils # (Auto) 4.9x10^3uL (1.8-7.7) Lymphocytes # (Auto) 0.6x10^3/uL (1.0-4.8) Monocytes # (Auto) 0.8x10^3/uL (0.0-1.1) Eosinophils # (Auto) 0.0x10^3/uL (0.0-0.7) Basophils # (Auto) 0.0x10^3/uL (0.0-0.2) Sodium Level 140mmol/L (136-145) Potassium Level 3.4mmol/L (3.5-5.1) Chloride Level 102mmol/L (98-107) Carbon Dioxide Level 29mmol/L (21-32) Anion Gap 9 (6-14) Blood Urea Nitrogen 35mg/dL (8-26) Creatinine 2.8mg/dL (0.7-1.3) Estimated GFR (Cockcroft-Gault) 22.6 Glucose Level 114mg/dL (70-99) Calcium Level 8.6mg/dL (8.5-10.1) Test 06/09/16 10:52 Glucose (Fingerstick) 166mg/dL (70-99) Medications Current Medications Heparin Sodium (Porcine) 5,000 unit Q8HRS SQ Last administered on 06/04/16t 13: 44; Start 06/03/16 at 06:00; Stop 06/04/16 at 14:34; Status DC Furosemide (Lasix) 40 mg BID92 IVP Last administered on 06/07/16 11:02; Start 06/03/16 at 09:00; Stop 06/08/16 at 10:20; Status DC Allopurinol (Zyloprim) 200 mg DAILY PO Last administered on 06/09/16 09:00; Start 06/03/16 at 15:00 Dabigatran (Pradaxa) 75 mg BID PO Last administered on 06/07/16 00:07; Start 06/03/16 at 15:00; Stop 06/06/16 at 21:01; Status DC Diltiazem HCl (Cardizem 24hr Cd) 120 mg DAILY PO Last administered on 08:42; Start 06/03/16 at 15:00; Stop 06/05/16 at 15:46; Status DC Furosemide (Lasix) 40 mg BID92 PO ; Start 06/03/16 at 15:00; Stop 06/03/16 at 16 :42; Status DC Hydralazine HCl (Apresoline) 75 mg TID PO Last administered on 06/09/16 09:00 ; Start 06/03/16 at 15:00 Metoprolol Succinate (Toprol Xl) 50 mg DAILY PO Last administered on 06/09/16 08:59; Start 06/03/16 at 15:00 Non-Formulary Medication 100 unit prn SQ ; Start 06/03/16 at 14:15; Stop at 16:02; Status DC Non-Formulary Medication 100 unit prn SQ ; Start 06/03/16 at 14:15; Status UNV Losartan Potassium (Cozaar) 100 mg DAILY PO Last administered on 06/09/16 08: 59; Start 06/03/16 at 15:00 Potassium Chloride (Klor-Con) 20 meq DAILYWBKFT PO ; Start 06/03/16 at 15:00; Stop 06/03/16 at 16:42; Status DC Atorvastatin Calcium (Lipitor) 5 mg QHS PO Last administered on 06/08/16 20:47 ; Start 06/03/16 at 21:00 Torsemide (Demadex) 100 mg DAILY PO ; Start 06/03/16 at 15:00; Stop 06/03/16 at 16:42; Status DC Insulin Aspart (Novolog) 0-5 UNITS TIDWMEALS SQ Last administered on 06/05/16 18:02; Start 06/03/16 at 17:00 Dextrose 12.5 gm PRN Q15MIN PRN IV SEE COMMENTS; Start 06/03/16 at 16:00 Insulin Detemir (Levemir) 25 units QHS SQ Last administered on 06/08/16 20:49 ; Start 06/03/16 at 21:00 Potassium Chloride (Klor-Con) 20 meq BID PO Last administered on 06/07/16 21: 47; Start 06/03/16 at 21:00; Stop 06/08/16 at 10:20; Status DC Potassium Chloride (Klor-Con) 40 meq 1X ONCE PO Last administered on 11:45; Start 06/04/16 at 10:30; Stop 06/04/16 at 10:35; Status DC Acetaminophen/ Hydrocodone Bitart (Lortab 5/325) 1 tab PRN Q4HRS PRN PO MODERATE PAIN Last administered on 06/08/16 16:17; Start 06/04/16 at 22:00 Metolazone (Zaroxolyn) 5 mg DAILY PO Last administered on 06/09/16 09:00; Start 06/05/16 at 16:00 Info (Anti-Coagulation Monitoring By Pharmacy) 1 each PRN DAILY PRN MC SEE COMMENTS Last administered on 06/08/16 08:43; Start 06/06/16 at 08:00 Regadenoson (Lexiscan) 0.4 mg 1X ONCE IV Last administered on 06/06/16 08:33 ; Start 06/06/16 at 08:15; Stop 06/06/16 at 08:16; Status DC Albuterol/ Ipratropium (Duoneb) 3 ml PRN Q4HRS PRN NEB SHORTNESS OF BREATH Last administered on 06/06/16 11:16; Start 06/06/16 at 10:45 Apixaban (Eliquis) 5 mg BID PO Last administered on 06/07/16 21:47; Start at 09:00; Stop 06/08/16 at 10:50; Status DC Midazolam HCl (Versed) 5 mg STK-MED ONCE .ROUTE ; Start 06/06/16 at 13:53; Stop 06/06/16 at 13:54; Status DC Fentanyl Citrate 250 mcg 250 mcg STK-MED ONCE .ROUTE ; Start 06/06/16 at 13:53; Stop 06/06/16 at 13:54; Status DC Dobutamine HCl/ Dextrose 250 ml @ 0 mls/hr CONT PRN IV SEE I/O RECORD Last administered on 06/07/16 21:50; Start 06/06/16 at 16:30; Stop 06/08/16 at 14:15 ; Status DC Potassium Chloride (Klor-Con) 40 meq 1X ONCE PO Last administered on 15:33; Start 06/07/16 at 12:45; Stop 06/07/16 at 12:48; Status DC Hydralazine HCl (Apresoline) 10 mg PRN Q4HRS PRN IVP ELEVATED BP, SEE COMMENTS ; Start 06/07/16 at 13:00 Lidocaine/Sodium Bicarbonate (Buffered Lidocaine 1%) 20 ml STK-MED ONCE IJ ; Start 06/07/16 at 13:20; Stop 06/07/16 at 13:21; Status DC Heparin Sodium (Porcine) 09612 unit 10,000 unit STK-MED ONCE .ROUTE ; Start at 13:20; Stop 06/07/16 at 13:21; Status DC Heparin Sodium/ Sodium Chloride 500 ml @ As Directed STK-MED ONCE .ROUTE ; Start 06/07/16 at 13:20; Stop 06/07/16 at 13:21; Status DC Lidocaine/Sodium Bicarbonate (Buffered Lidocaine 1%) 3 ml 1X ONCE IJ Last administered on 06/07/16 13:45; Start 06/07/16 at 13:45; Stop 06/07/16 at 13:46 ; Status DC Heparin Sodium/ Sodium Chloride 60 unit 1X ONCE IV Last administered on 13:45; Start 06/07/16 at 13:45; Stop 06/07/16 at 13:46; Status DC Heparin Sodium (Porcine) 2,400 unit 1X ONCE INT CAT Last administered on 13:45; Start 06/07/16 at 13:45; Stop 06/07/16 at 13:46; Status DC Info 1 each 1 each PRN DAILY PRN MC SEE COMMENTS; Start 06/07/16 at 19:00; Status Cancel Sodium Chloride 1,000 ml @ 1,000 mls/hr Q1H PRN IV hypotension; Start 06/08/16 at 08:41; Stop 06/08/16 at 14:40; Status DC Albumin Human (Albuminar) 200 ml @ 200 mls/hr 1X PRN PRN IV Hypotension; Start 06/08/16 at 08:45; Stop 06/08/16 at 14:44; Status DC Midodrine (Proamatine) 5 mg 1X ONCE PO ; Start 06/08/16 at 08:45; Stop at 08:49; Status DC Acetaminophen (Tylenol) 500 mg 1X PRN PRN PO MILD PAIN / TEMP; Start 06/08/16 at 08:45; Stop 06/09/16 at 08:44; Status DC Diphenhydramine HCl (Benadryl) 25 mg 1X PRN PRN IV ITCHING; Start 06/08/16 at 08:45; Stop 06/09/16 at 08:44; Status DC Diphenhydramine HCl (Benadryl) 25 mg 1X PRN PRN IV ITCHING; Start 06/08/16 at 08:45; Stop 06/09/16 at 08:44; Status DC Labetalol HCl (Normodyne) 10 mg PRN Q1HR PRN IVP SBP > 180; Start 06/08/16 at 08:45; Stop 06/09/16 at 08:44; Status DC Clonidine HCl (Catapres) 0.1 mg 1X PRN PRN PO SBP > 180; Start 06/08/16 at 08: 45; Stop 06/09/16 at 08:44; Status DC Info (PHARMACY MONITORING -- do not chart) 1 each PRN DAILY PRN MC SEE COMMENTS ; Start 06/08/16 at 08:45 Darbepoetin Jose (Aranesp) 60 mcg WEEKLYHS SQ Last administered on 06/08/16 20 :46; Start 06/08/16 at 21:00 Furosemide (Lasix) 40 mg DAILY PO Last administered on 06/09/16 09:00; Start 06/08/16 at 11:00 Apixaban (Eliquis) 5 mg BID PO Last administered on 06/09/16 09:01; Start at 21:00 Phytonadione (Mephyton) 2.5 mg 1X ONCE PO Last administered on 06/08/16t 14:57 ; Start 06/08/16 at 14:00; Stop 06/08/16 at 14:01; Status DC Apixaban 5 mg 5 mg BID PO ; Start 06/08/16 at 21:00; Status UNV Sodium Chloride 1,000 ml @ 1,000 mls/hr Q1H PRN IV hypotension; Start 06/09/16 at 11:31; Stop 06/09/16 at 17:30 Albumin Human 200 ml @ 200 mls/hr 1X PRN PRN IV Hypotension; Start 06/09/16 at 11:45; Stop 06/09/16 at 17:44 Sodium Chloride (Iv Sodium Chloride 0.9% 1000ml Bag) 1,000 ml @ 400 mls/hr Q2H30M PRN IV PATENCY; Start 06/09/16 at 11:31; Stop 06/09/16 at 23:30 Info (PHARMACY MONITORING -- do not chart) 1 each PRN DAILY PRN MC SEE COMMENTS ; Start 06/09/16 at 11:45; Status UNV Info (PHARMACY MONITORING -- do not chart) 1 each PRN DAILY PRN MC SEE COMMENTS ; Start 06/09/16 at 11:45; Status UNV Active Scripts Active Reported Furosemide 40 Mg Tablet 40 Mg PO BID Hydralazine Hcl 25 Mg Tablet 75 Mg PO TID Pradaxa (Dabigatran Etexilate Mesylate) 75 Mg Capsule 75 Mg PO BID Metolazone 2.5 Mg Tablet 2.5 Mg PO THREE TIMES A WEEK Allopurinol 100 Mg Tablet 200 Mg PO DAILY Potassium Chloride 20 Meq Tablet.er 20 Meq PO DAILY Toprol Xl (Metoprolol Succinate) 50 Mg Tab.er.24h 50 Mg PO DAILY Levemir (Insulin Detemir) 100 Unit/1 Ml Vial 25 Unit SQ QHS Losartan Potassium 100 Mg Tablet 100 Mg PO DAILY Pravastatin Sodium 20 Mg Tablet 20 Mg PO DAILY Torsemide 100 Mg Tablet 100 Mg PO DAILY Novolog (Insulin Aspart) 100 Unit/1 Ml Cartridge 100 Unit SQ PRN Diltiazem 24HR Er (Diltiazem Hcl) 120 Mg Cap.er.24h 120 Mg PO DAILY Vitals/I & O Vital Sign - Last 24 Hours 06/08/16 06/08/16 06/08/16 06/08/16 14:00 15:00 16:17 16:17 Pulse 88 88 86 Resp 18 B/P 116/71 116/64 124/70 O2 Delivery Room Air 06/08/16 06/08/16 06/08/16 06/08/16 17:17 19:35 19:53 20:47 Temp 98.2 98.2 Pulse 85 85 Resp 21 B/P 140/81 140/81 Pulse Ox 93 91 O2 Delivery Room Air Room Air Room Air 06/08/16 06/09/16 06/09/16 06/09/16 23:32 03:10 07:59 08:59 Temp 98.6 97.9 98.2 98.6 97.9 98.2 Pulse 84 73 86 86 Resp 20 26 20 B/P 146/83 150/93 141/79 141/79 Pulse Ox 95 92 94 O2 Delivery Room Air Room Air Room Air 06/09/16 06/09/16 06/09/16 08:59 09:00 10:26 Temp 99.0 99.0 Pulse 86 86 80 Resp 21 B/P 141/79 141/79 138/77 Pulse Ox 93 O2 Delivery Room Air Intake and Output 06/08/16 06/08/16 06/09/16 15:00 23:00 07:00 Intake Total 220 ml 400 ml Output Total 0 ml 0 ml Balance 220 ml 400 ml 0 ml RICKEY ISRAEL MD Jun 09, 2016 13:16
[2016-06-09 16:26] VITALS: BP 124/91
[2016-06-09 19:35] VITALS: BP 136/76
[2016-06-09] MEDS: ATORVASTATIN CALCIUM 10 MG TABLET. PO SCH (21:12)
[2016-06-09] MEDS: INSULIN DETEMIR 300 UNITS/3 ML INSULN.PEN. SQ SCH (21:18)
[2016-06-09 23:30] VITALS: BP 145/72
[2016-06-10 03:45] VITALS: BP 127/76
[2016-06-10 05:47] LABS: BASO % 1 % (0-3); EOS % 0 % (0-3); HEMATOCRIT 33.9 % (39.0-53.0); HEMOGLOBIN 10.8 g/dL (13.0-17.5); LYMPH # 0.9 x10^3/uL (1.0-4.8); LYMPH % 13 % (24-48); MEAN CORPUSCULAR HEMOGLOBIN 31 pg (25-35); MEAN CORPUSCULAR HGB CONC 32 g/dL (31-37); MEAN CORPUSCULAR VOLUME 97 fL (79-100); MONO % 8 % (0-9); NEUT % 78 % (31-73); PLATELET COUNT 157 x10^3/uL (140-400); RED BLOOD COUNT 3.49 x10^6/uL (4.30-5.70); RED CELL DISTRIBUTION WIDTH 16.6 % (11.5-14.5); WHITE BLOOD COUNT 7.2 x10^3/uL (4.0-11.0)
[2016-06-10 06:04] LABS: CALCIUM 8.4 mg/dL (8.5-10.1); CREATININE 2.6 mg/dL (0.7-1.3); GFR 24.6; POTASSIUM 3.1 mmol/L (3.5-5.1)
[2016-06-10 07:47] VITALS: BP 148/72
[2016-06-10] MEDS: INSULIN ASPART 300 UNITS/3 ML INSULN.PEN SQ SCH ×3 (08:00→17:00)
[2016-06-10] MEDS: APIXABAN 5 MG TABLET. PO SCH ×2 (08:26→20:22)
[2016-06-10] MEDS: FUROSEMIDE 40 MG TABLET PO SCH (08:26)
[2016-06-10] MEDS: ALLOPURINOL 100 MG TABLET. PO SCH (08:27)
[2016-06-10] MEDS: LOSARTAN POTASSIUM 50 MG TABLET. PO SCH (08:27)
[2016-06-10] MEDS: METOLAZONE 2.5 MG TABLET PO SCH (08:27)
[2016-06-10] MEDS: HYDRALAZINE 25 MG TABLET PO SCH ×3 (09:00→20:21)
[2016-06-10] MEDS: METOPROLOL SUCC 24HR ER 50 MG TAB.ER.24H. PO SCH (09:00)
--- NOTE | 2016-06-10 10:55 | PDOC ---
Renal-Progress Notes Subjective Notes Notes FEELING BETTER History of Present Illness Hx of present illness IMPROVED Vitals Vitals Vital Signs Date Time Temp Pulse Resp B/P Pulse Ox O2 Delivery O2 Flow Rate FiO2 06/10/16 09:00 78 148/72 06/10/16 08:00 Room Air 06/10/16 07:47 98.8 23 96 98.8 Weight Weight [ ] I.O. Intake and Output Intake and Output 06/10/16 07:00 Intake Total 600 ml Output Total 0 ml Balance 600 ml Intake Oral 600 ml Output Urine Total 0 ml Labs Labs Laboratory Tests Test 06/09/16 14:45 06/09/16 16:28 06/09/16 20:40 06/10/16 05:15 Glucose (Fingerstick) 87mg/dL (70-99) 108mg/dL (70-99) 177mg/dL (70-99) White Blood Count 7.2x10^3/uL (4.0-11.0) Red Blood Count 3.49x10^6/uL (4.30-5.70) Hemoglobin 10.8g/dL (13.0-17.5) Hematocrit 33.9% (39.0-53.0) Mean Corpuscular Volume 97fL (79-100) Mean Corpuscular Hemoglobin 31pg (25-35) Mean Corpuscular Hemoglobin Concent 32g/dL (31-37) Red Cell Distribution Width 16.6% (11.5-14.5) Platelet Count 157x10^3/uL (140-400) Neutrophils (%) (Auto) 78% (31-73) Lymphocytes (%) (Auto) 13% (24-48) Monocytes (%) (Auto) 8% (0-9) Eosinophils (%) (Auto) 0% (0-3) Basophils (%) (Auto) 1% (0-3) Neutrophils # (Auto) 5.6x10^3uL (1.8-7.7) Lymphocytes # (Auto) 0.9x10^3/uL (1.0-4.8) Monocytes # (Auto) 0.6x10^3/uL (0.0-1.1) Eosinophils # (Auto) 0.0x10^3/uL (0.0-0.7) Basophils # (Auto) 0.0x10^3/uL (0.0-0.2) Sodium Level 140mmol/L (136-145) Potassium Level 3.1mmol/L (3.5-5.1) Chloride Level 102mmol/L (98-107) Carbon Dioxide Level 29mmol/L (21-32) Anion Gap 9 (6-14) Blood Urea Nitrogen 30mg/dL (8-26) Creatinine 2.6mg/dL (0.7-1.3) Estimated GFR (Cockcroft-Gault) 24.6 Glucose Level 87mg/dL (70-99) Calcium Level 8.4mg/dL (8.5-10.1) Test 06/10/16 07:49 Glucose (Fingerstick) 79mg/dL (70-99) Review of Systems Constitutional: yes: alert, oriented, weakness Ears/Nose/Throat: Yes: no symptom reported Eyes: Yes: no symptom reported Pulmonary: Yes dyspnea Cardiovascular: Yes orthopnea, Yes edema Gastrointestional: Yes: constipation Genitourinary: Yes: no symptom reported Musculoskeletal: Yes: muscle stiffness Skin: Yes no symptom reported Physical Exam General Appearance: no apparent distress Skin: warm Respiratory: decreased breath sounds Heart: S1S2, RRR Abdomen: soft, bowel sounds present Neurology: alert, oriented, follow commands Assessment Assessment IMP CHF-SYSTOLIC AND RECURRENT-BETTER NEW ESRD MILD HYPOKALEMIA-BETTER ANEMIA PROTEINURIA-ABOUT 2.4 GM A DAY DM II - ON INSULIN HX OF LEFT RENAL CA-FOLLOWED AT [facility] PLAN CONT PO LASIX ARANESP TUNNELED HD CATHETER ONCE COAGS ARE ACCEPTABLE HD TOMORROW OP HD BEING SET UP AT [facility] WILL NEED TO F/U AT [facility] FOR RENAL RESECTION SIGIFREDO CLARK MD Jun 10, 2016 10:55
[2016-06-10 11:06] VITALS: BP 128/62
[2016-06-10] MEDS ORDERED: ACETAMINOPHEN 500 MG TABLET PO PRN (14:15)
[2016-06-10] MEDS ORDERED: ONDANSETRON PF 4 MG/2 ML VIAL. IV PRN (14:15)
--- NOTE | 2016-06-10 14:38 | PDOC ---
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 -Gout -Arthritis -Insomnia History of Present Illness History of Present Illness Watching tv, confortable LAbs reviewed PLanned for tunneled cath saturday, AC has been held NO coags on file PLAN: Check PT.INR If high might need FFP ir vitamin K to ready for louise's tunneled cath HD per renal LAbs PT/OT Supprotive care ZOfran and tylenol prn Vitals Vitals Vital Signs Date Time Temp Pulse Resp B/P Pulse Ox O2 Delivery O2 Flow Rate FiO2 06/10/16 11:06 98.5 78 24 128/62 97 Room Air 98.5 Physical Exam General: Alert, Oriented X3, Cooperative, No acute distress Heart: Normal S1, Normal S2, No murmurs, Other ( ) Lungs: Clear Abdomen: Soft, No tenderness Extremities: No clubbing, No cyanosis, Other (persistent edema today; b/l charcot foot deformity) Skin: No rashes, Other (ecchymosis left arm ) Labs LABS Laboratory Tests Test 06/09/16 14:45 06/09/16 16:28 06/09/16 20:40 06/10/16 05:15 Glucose (Fingerstick) 87mg/dL (70-99) 108mg/dL (70-99) 177mg/dL (70-99) White Blood Count 7.2x10^3/uL (4.0-11.0) Red Blood Count 3.49x10^6/uL (4.30-5.70) Hemoglobin 10.8g/dL (13.0-17.5) Hematocrit 33.9% (39.0-53.0) Mean Corpuscular Volume 97fL (79-100) Mean Corpuscular Hemoglobin 31pg (25-35) Mean Corpuscular Hemoglobin Concent 32g/dL (31-37) Red Cell Distribution Width 16.6% (11.5-14.5) Platelet Count 157x10^3/uL (140-400) Neutrophils (%) (Auto) 78% (31-73) Lymphocytes (%) (Auto) 13% (24-48) Monocytes (%) (Auto) 8% (0-9) Eosinophils (%) (Auto) 0% (0-3) Basophils (%) (Auto) 1% (0-3) Neutrophils # (Auto) 5.6x10^3uL (1.8-7.7) Lymphocytes # (Auto) 0.9x10^3/uL (1.0-4.8) Monocytes # (Auto) 0.6x10^3/uL (0.0-1.1) Eosinophils # (Auto) 0.0x10^3/uL (0.0-0.7) Basophils # (Auto) 0.0x10^3/uL (0.0-0.2) Sodium Level 140mmol/L (136-145) Potassium Level 3.1mmol/L (3.5-5.1) Chloride Level 102mmol/L (98-107) Carbon Dioxide Level 29mmol/L (21-32) Anion Gap 9 (6-14) Blood Urea Nitrogen 30mg/dL (8-26) Creatinine 2.6mg/dL (0.7-1.3) Estimated GFR (Cockcroft-Gault) 24.6 Glucose Level 87mg/dL (70-99) Calcium Level 8.4mg/dL (8.5-10.1) Test 06/10/16 07:49 06/10/16 11:09 Glucose (Fingerstick) 79mg/dL (70-99) 130mg/dL (70-99) Review of Systems Review of Systems aLL 14 pt reviewed, neg Assessment and Plan Assessmemt and Plan check PT/INR today, address accdgly if high in preparation for tunneled cath louise Problems: Comment Review of Relevant I have reviewed the following items jennifer (where applicable) has been applied. Labs Laboratory Tests Test 06/08/16 17:11 06/08/16 20:45 06/09/16 04:15 06/09/16 08:03 Glucose (Fingerstick) 131mg/dL (70-99) 155mg/dL (70-99) 96mg/dL (70-99) White Blood Count 6.3x10^3/uL (4.0-11.0) Red Blood Count 3.35x10^6/uL (4.30-5.70) Hemoglobin 10.5g/dL (13.0-17.5) Hematocrit 32.8% (39.0-53.0) Mean Corpuscular Volume 98fL (79-100) Mean Corpuscular Hemoglobin 31pg (25-35) Mean Corpuscular Hemoglobin Concent 32g/dL (31-37) Red Cell Distribution Width 16.9% (11.5-14.5) Platelet Count 158x10^3/uL (140-400) Neutrophils (%) (Auto) 78% (31-73) Lymphocytes (%) (Auto) 9% (24-48) Monocytes (%) (Auto) 12% (0-9) Eosinophils (%) (Auto) 0% (0-3) Basophils (%) (Auto) 1% (0-3) Neutrophils # (Auto) 4.9x10^3uL (1.8-7.7) Lymphocytes # (Auto) 0.6x10^3/uL (1.0-4.8) Monocytes # (Auto) 0.8x10^3/uL (0.0-1.1) Eosinophils # (Auto) 0.0x10^3/uL (0.0-0.7) Basophils # (Auto) 0.0x10^3/uL (0.0-0.2) Sodium Level 140mmol/L (136-145) Potassium Level 3.4mmol/L (3.5-5.1) Chloride Level 102mmol/L (98-107) Carbon Dioxide Level 29mmol/L (21-32) Anion Gap 9 (6-14) Blood Urea Nitrogen 35mg/dL (8-26) Creatinine 2.8mg/dL (0.7-1.3) Estimated GFR (Cockcroft-Gault) 22.6 Glucose Level 114mg/dL (70-99) Calcium Level 8.6mg/dL (8.5-10.1) Test 06/09/16 10:52 06/09/16 14:45 06/09/16 16:28 06/09/16 20:40 Glucose (Fingerstick) 166mg/dL (70-99) 87mg/dL (70-99) 108mg/dL (70-99) 177mg/dL (70-99) Test 06/10/16 05:15 06/10/16 07:49 06/10/16 11:09 White Blood Count 7.2x10^3/uL (4.0-11.0) Red Blood Count 3.49x10^6/uL (4.30-5.70) Hemoglobin 10.8g/dL (13.0-17.5) Hematocrit 33.9% (39.0-53.0) Mean Corpuscular Volume 97fL (79-100) Mean Corpuscular Hemoglobin 31pg (25-35) Mean Corpuscular Hemoglobin Concent 32g/dL (31-37) Red Cell Distribution Width 16.6% (11.5-14.5) Platelet Count 157x10^3/uL (140-400) Neutrophils (%) (Auto) 78% (31-73) Lymphocytes (%) (Auto) 13% (24-48) Monocytes (%) (Auto) 8% (0-9) Eosinophils (%) (Auto) 0% (0-3) Basophils (%) (Auto) 1% (0-3) Neutrophils # (Auto) 5.6x10^3uL (1.8-7.7) Lymphocytes # (Auto) 0.9x10^3/uL (1.0-4.8) Monocytes # (Auto) 0.6x10^3/uL (0.0-1.1) Eosinophils # (Auto) 0.0x10^3/uL (0.0-0.7) Basophils # (Auto) 0.0x10^3/uL (0.0-0.2) Sodium Level 140mmol/L (136-145) Potassium Level 3.1mmol/L (3.5-5.1) Chloride Level 102mmol/L (98-107) Carbon Dioxide Level 29mmol/L (21-32) Anion Gap 9 (6-14) Blood Urea Nitrogen 30mg/dL (8-26) Creatinine 2.6mg/dL (0.7-1.3) Estimated GFR (Cockcroft-Gault) 24.6 Glucose Level 87mg/dL (70-99) Calcium Level 8.4mg/dL (8.5-10.1) Glucose (Fingerstick) 79mg/dL (70-99) 130mg/dL (70-99) Laboratory Tests Test 06/09/16 14:45 06/09/16 16:28 06/09/16 20:40 06/10/16 05:15 Glucose (Fingerstick) 87mg/dL (70-99) 108mg/dL (70-99) 177mg/dL (70-99) White Blood Count 7.2x10^3/uL (4.0-11.0) Red Blood Count 3.49x10^6/uL (4.30-5.70) Hemoglobin 10.8g/dL (13.0-17.5) Hematocrit 33.9% (39.0-53.0) Mean Corpuscular Volume 97fL (79-100) Mean Corpuscular Hemoglobin 31pg (25-35) Mean Corpuscular Hemoglobin Concent 32g/dL (31-37) Red Cell Distribution Width 16.6% (11.5-14.5) Platelet Count 157x10^3/uL (140-400) Neutrophils (%) (Auto) 78% (31-73) Lymphocytes (%) (Auto) 13% (24-48) Monocytes (%) (Auto) 8% (0-9) Eosinophils (%) (Auto) 0% (0-3) Basophils (%) (Auto) 1% (0-3) Neutrophils # (Auto) 5.6x10^3uL (1.8-7.7) Lymphocytes # (Auto) 0.9x10^3/uL (1.0-4.8) Monocytes # (Auto) 0.6x10^3/uL (0.0-1.1) Eosinophils # (Auto) 0.0x10^3/uL (0.0-0.7) Basophils # (Auto) 0.0x10^3/uL (0.0-0.2) Sodium Level 140mmol/L (136-145) Potassium Level 3.1mmol/L (3.5-5.1) Chloride Level 102mmol/L (98-107) Carbon Dioxide Level 29mmol/L (21-32) Anion Gap 9 (6-14) Blood Urea Nitrogen 30mg/dL (8-26) Creatinine 2.6mg/dL (0.7-1.3) Estimated GFR (Cockcroft-Gault) 24.6 Glucose Level 87mg/dL (70-99) Calcium Level 8.4mg/dL (8.5-10.1) Test 06/10/16 07:49 06/10/16 11:09 Glucose (Fingerstick) 79mg/dL (70-99) 130mg/dL (70-99) Medications Current Medications Heparin Sodium (Porcine) 5,000 unit Q8HRS SQ Last administered on 06/04/16 13: 44; Start 06/03/16 at 06:00; Stop 06/04/16 at 14:34; Status DC Furosemide (Lasix) 40 mg BID92 IVP Last administered on 06/07/16 11:02; Start 06/03/16 at 09:00; Stop 06/08/16 at 10:20; Status DC Allopurinol (Zyloprim) 200 mg DAILY PO Last administered on 06/10/16 08:27; Start 06/03/16 at 15:00 Dabigatran (Pradaxa) 75 mg BID PO Last administered on 06/07/16 00:07; Start 06/03/16 at 15:00; Stop 06/06/16 at 21:01; Status DC Diltiazem HCl (Cardizem 24hr Cd) 120 mg DAILY PO Last administered on 08:42; Start 06/03/16 at 15:00; Stop 06/05/16 at 15:46; Status DC Furosemide (Lasix) 40 mg BID92 PO ; Start 06/03/16 at 15:00; Stop 06/03/16 at 16 :42; Status DC Hydralazine HCl (Apresoline) 75 mg TID PO Last administered on 06/10/16 09:00 ; Start 06/03/16 at 15:00 Metoprolol Succinate (Toprol Xl) 50 mg DAILY PO Last administered on 06/10/16 09:00; Start 06/03/16 at 15:00 Non-Formulary Medication 100 unit prn SQ ; Start 06/03/16 at 14:15; Stop at 16:02; Status DC Non-Formulary Medication 100 unit prn SQ ; Start 06/03/16 at 14:15; Status UNV Losartan Potassium (Cozaar) 100 mg DAILY PO Last administered on 06/10/16 08: 27; Start 06/03/16 at 15:00 Potassium Chloride (Klor-Con) 20 meq DAILYWBKFT PO ; Start 06/03/16 at 15:00; Stop 06/03/16 at 16:42; Status DC Atorvastatin Calcium (Lipitor) 5 mg QHS PO Last administered on 06/09/16 21:12 ; Start 06/03/16 at 21:00 Torsemide (Demadex) 100 mg DAILY PO ; Start 06/03/16 at 15:00; Stop 06/03/16 at 16:42; Status DC Insulin Aspart (Novolog) 0-5 UNITS TIDWMEALS SQ Last administered on 06/05/16 18:02; Start 06/03/16 at 17:00 Dextrose 12.5 gm PRN Q15MIN PRN IV SEE COMMENTS; Start 06/03/16 at 16:00 Insulin Detemir (Levemir) 25 units QHS SQ Last administered on 06/09/16 21:18 ; Start 06/03/16 at 21:00 Potassium Chloride (Klor-Con) 20 meq BID PO Last administered on 06/07/16 21: 47; Start 06/03/16 at 21:00; Stop 06/08/16 at 10:20; Status DC Potassium Chloride (Klor-Con) 40 meq 1X ONCE PO Last administered on 11:45; Start 06/04/16 at 10:30; Stop 06/04/16 at 10:35; Status DC Acetaminophen/ Hydrocodone Bitart (Lortab 5/325) 1 tab PRN Q4HRS PRN PO MODERATE PAIN Last administered on 06/08/16 16:17; Start 06/04/16 at 22:00 Metolazone (Zaroxolyn) 5 mg DAILY PO Last administered on 06/10/16 08:27; Start 06/05/16 at 16:00 Info (Anti-Coagulation Monitoring By Pharmacy) 1 each PRN DAILY PRN MC SEE COMMENTS Last administered on 06/08/16 08:43; Start 06/06/16 at 08:00 Regadenoson (Lexiscan) 0.4 mg 1X ONCE IV Last administered on 06/06/16 08:33 ; Start 06/06/16 at 08:15; Stop 06/06/16 at 08:16; Status DC Albuterol/ Ipratropium (Duoneb) 3 ml PRN Q4HRS PRN NEB SHORTNESS OF BREATH Last administered on 06/06/16 11:16; Start 06/06/16 at 10:45 Apixaban (Eliquis) 5 mg BID PO Last administered on 06/07/16 21:47; Start at 09:00; Stop 06/08/16 at 10:50; Status DC Midazolam HCl (Versed) 5 mg STK-MED ONCE .ROUTE ; Start 06/06/16 at 13:53; Stop 06/06/16 at 13:54; Status DC Fentanyl Citrate 250 mcg 250 mcg STK-MED ONCE .ROUTE ; Start 06/06/16 at 13:53; Stop 06/06/16 at 13:54; Status DC Dobutamine HCl/ Dextrose 250 ml @ 0 mls/hr CONT PRN IV SEE I/O RECORD Last administered on 06/07/16 21:50; Start 06/06/16 at 16:30; Stop 06/08/16 at 14:15 ; Status DC Potassium Chloride (Klor-Con) 40 meq 1X ONCE PO Last administered on 15:33; Start 06/07/16 at 12:45; Stop 06/07/16 at 12:48; Status DC Hydralazine HCl (Apresoline) 10 mg PRN Q4HRS PRN IVP ELEVATED BP, SEE COMMENTS ; Start 06/07/16 at 13:00 Lidocaine/Sodium Bicarbonate (Buffered Lidocaine 1%) 20 ml STK-MED ONCE IJ ; Start 06/07/16 at 13:20; Stop 06/07/16 at 13:21; Status DC Heparin Sodium (Porcine) 79947 unit 10,000 unit STK-MED ONCE .ROUTE ; Start at 13:20; Stop 06/07/16 at 13:21; Status DC Heparin Sodium/ Sodium Chloride 500 ml @ As Directed STK-MED ONCE .ROUTE ; Start 06/07/16 at 13:20; Stop 06/07/16 at 13:21; Status DC Lidocaine/Sodium Bicarbonate (Buffered Lidocaine 1%) 3 ml 1X ONCE IJ Last administered on 06/07/16 13:45; Start 06/07/16 at 13:45; Stop 06/07/16 at 13:46 ; Status DC Heparin Sodium/ Sodium Chloride 60 unit 1X ONCE IV Last administered on t 13:45; Start 06/07/16 at 13:45; Stop 06/07/16 at 13:46; Status DC Heparin Sodium (Porcine) 2,400 unit 1X ONCE INT CAT Last administered on t 13:45; Start 06/07/16 at 13:45; Stop 06/07/16 at 13:46; Status DC Info 1 each 1 each PRN DAILY PRN MC SEE COMMENTS; Start 06/07/16 at 19:00; Status Cancel Sodium Chloride 1,000 ml @ 1,000 mls/hr Q1H PRN IV hypotension; Start 06/08/16 at 08:41; Stop 06/08/16 at 14:40; Status DC Albumin Human (Albuminar) 200 ml @ 200 mls/hr 1X PRN PRN IV Hypotension; Start 06/08/16 at 08:45; Stop 06/08/16 at 14:44; Status DC Midodrine (Proamatine) 5 mg 1X ONCE PO ; Start 06/08/16 at 08:45; Stop at 08:49; Status DC Acetaminophen (Tylenol) 500 mg 1X PRN PRN PO MILD PAIN / TEMP; Start 06/08/16 at 08:45; Stop 06/09/16 at 08:44; Status DC Diphenhydramine HCl (Benadryl) 25 mg 1X PRN PRN IV ITCHING; Start 06/08/16 at 08:45; Stop 06/09/16 at 08:44; Status DC Diphenhydramine HCl (Benadryl) 25 mg 1X PRN PRN IV ITCHING; Start 06/08/16 at 08:45; Stop 06/09/16 at 08:44; Status DC Labetalol HCl (Normodyne) 10 mg PRN Q1HR PRN IVP SBP > 180; Start 06/08/16 at 08:45; Stop 06/09/16 at 08:44; Status DC Clonidine HCl (Catapres) 0.1 mg 1X PRN PRN PO SBP > 180; Start 06/08/16 at 08: 45; Stop 06/09/16 at 08:44; Status DC Info (PHARMACY MONITORING -- do not chart) 1 each PRN DAILY PRN MC SEE COMMENTS ; Start 06/08/16 at 08:45 Darbepoetin Jose (Aranesp) 60 mcg WEEKLYHS SQ Last administered on 06/08/16 20 :46; Start 06/08/16 at 21:00 Furosemide (Lasix) 40 mg DAILY PO Last administered on 06/10/16 08:26; Start 06/08/16 at 11:00 Apixaban (Eliquis) 5 mg BID PO Last administered on 06/10/16 08:26; Start at 21:00 Phytonadione (Mephyton) 2.5 mg 1X ONCE PO Last administered on 06/08/16 14:57 ; Start 06/08/16 at 14:00; Stop 06/08/16 at 14:01; Status DC Apixaban 5 mg 5 mg BID PO ; Start 06/08/16 at 21:00; Status UNV Sodium Chloride 1,000 ml @ 1,000 mls/hr Q1H PRN IV hypotension; Start 06/09/16 at 11:31; Stop 06/09/16 at 17:30; Status DC Albumin Human 200 ml @ 200 mls/hr 1X PRN PRN IV Hypotension; Start 06/09/16 at 11:45; Stop 06/09/16 at 17:44; Status DC Sodium Chloride (Iv Sodium Chloride 0.9% 1000ml Bag) 1,000 ml @ 400 mls/hr Q2H30M PRN IV PATENCY; Start 06/09/16 at 11:31; Stop 06/09/16 at 23:30; Status DC Info (PHARMACY MONITORING -- do not chart) 1 each PRN DAILY PRN MC SEE COMMENTS ; Start 06/09/16 at 11:45; Status UNV Info (PHARMACY MONITORING -- do not chart) 1 each PRN DAILY PRN MC SEE COMMENTS ; Start 06/09/16 at 11:45; Status UNV Ondansetron HCl (Zofran) 4 mg PRN Q6HRS PRN IV NAUSEA/VOMITING; Start 06/10/16 at 14:15 Acetaminophen (Tylenol) 500 mg PRN Q6HRS PRN PO MILD PAIN / TEMP; Start at 14:15 Active Scripts Active Reported Furosemide 40 Mg Tablet 40 Mg PO BID Hydralazine Hcl 25 Mg Tablet 75 Mg PO TID Pradaxa (Dabigatran Etexilate Mesylate) 75 Mg Capsule 75 Mg PO BID Metolazone 2.5 Mg Tablet 2.5 Mg PO THREE TIMES A WEEK Allopurinol 100 Mg Tablet 200 Mg PO DAILY Potassium Chloride 20 Meq Tablet.er 20 Meq PO DAILY Toprol Xl (Metoprolol Succinate) 50 Mg Tab.er.24h 50 Mg PO DAILY Levemir (Insulin Detemir) 100 Unit/1 Ml Vial 25 Unit SQ QHS Losartan Potassium 100 Mg Tablet 100 Mg PO DAILY Pravastatin Sodium 20 Mg Tablet 20 Mg PO DAILY Torsemide 100 Mg Tablet 100 Mg PO DAILY Novolog (Insulin Aspart) 100 Unit/1 Ml Cartridge 100 Unit SQ PRN Diltiazem 24HR Er (Diltiazem Hcl) 120 Mg Cap.er.24h 120 Mg PO DAILY Vitals/I & O Vital Sign - Last 24 Hours 06/09/16 06/09/16 06/09/16 06/09/16 16:26 19:35 20:00 21:13 Temp 97.0 98.3 97.0 98.3 Pulse 77 77 77 Resp 20 24 B/P 124/91 136/76 136/76 Pulse Ox 94 91 O2 Delivery Room Air Room Air Room Air 06/09/16 06/10/16 06/10/16 06/10/16 23:30 03:45 07:47 08:00 Temp 98.1 98.1 98.8 98.1 98.1 98.8 Pulse 78 98 78 Resp 23 B/P 145/72 127/76 148/72 Pulse Ox 91 93 96 O2 Delivery Room Air Room Air Room Air Room Air 06/10/16 06/10/16 06/10/16 06/10/16 08:27 09:00 09:00 11:06 Temp 98.5 98.5 Pulse 78 78 78 78 Resp 24 B/P 148/72 148/72 148/72 128/62 Pulse Ox 97 O2 Delivery Room Air Intake and Output 06/09/16 06/09/16 06/10/16 15:00 23:00 07:00 Intake Total 400 ml 200 ml Output Total 0 ml Balance 400 ml 200 ml VICTOR M PINA MD Jun 10, 2016 14:38
[2016-06-10 14:52] LABS: INR 1.7 (0.8-1.1)
[2016-06-10 15:00] VITALS: BP 118/62
[2016-06-10 19:10] VITALS: BP 107/58
[2016-06-10] MEDS: ATORVASTATIN CALCIUM 10 MG TABLET. PO SCH (20:22)
[2016-06-10] MEDS: INSULIN DETEMIR 300 UNITS/3 ML INSULN.PEN. SQ SCH (20:27)
[2016-06-10 23:12] VITALS: BP 103/62
[2016-06-11 02:25] VITALS: BP 114/60
[2016-06-11 07:19] VITALS: BP 119/74
[2016-06-11] MEDS ORDERED: IV NORMAL SALINE 1000ML BAG 1,000 ML IV PRN ×2 (08:00)
[2016-06-11] MEDS: INSULIN ASPART 300 UNITS/3 ML INSULN.PEN SQ SCH ×3 (08:00→17:00)
--- NOTE | 2016-06-11 08:38 | PDOC ---
PROGRESS NOTES Subjective Subjective c/c - f/u of RCC Objective Objective Vital Signs Date Time Temp Pulse Resp B/P Pulse Ox O2 Delivery O2 Flow Rate FiO2 06/11/16 07:19 97.8 69 20 119/74 94 Room Air 97.8 Intake and Output 06/11/16 07:00 Intake Total 420 ml Output Total 275 ml Balance 145 ml Intake Oral 420 ml Output Urine Total 275 ml # Voids 1 Physical Exam Heart: Normal S1, Normal S2 General: Alert, Oriented X3 Lungs: Clear to auscultation Assessment Assessment IMPRESSION AND PLAN: 1. Renal cell carcinoma of the left kidney, diagnosed via biopsy on 05/02/2016. 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 I obtained records from [facility]. I discussed in detail with the patient regarding the treatment for renal cell carcinoma. Standard management would be surgical resection. I have recommended urology consultation for further management. The patient has already been followed by Urology since 2013 and he had an appointment to see Dr. Heather Almonte at on 06/08/16 Urology for further management. He will reschedule it. 2. Congestive heart failure. Appreciate Cardiology consultation. Dyspnea improving. 3. Chronic kidney disease. Appreciate Nephrology consultation. He has stage IV-V chronic kidney disease. Hemodialysis started 06/07/16. Comment Review of Relevant I have reviewed the following items jennifer (where applicable) has been applied. Labs Laboratory Tests Test 06/09/16 10:52 06/09/16 14:45 06/09/16 16:28 06/09/16 20:40 Glucose (Fingerstick) 166mg/dL (70-99) 87mg/dL (70-99) 108mg/dL (70-99) 177mg/dL (70-99) Test 06/10/16 05:15 06/10/16 07:49 06/10/16 11:09 06/10/16 14:10 White Blood Count 7.2x10^3/uL (4.0-11.0) Red Blood Count 3.49x10^6/uL (4.30-5.70) Hemoglobin 10.8g/dL (13.0-17.5) Hematocrit 33.9% (39.0-53.0) Mean Corpuscular Volume 97fL (79-100) Mean Corpuscular Hemoglobin 31pg (25-35) Mean Corpuscular Hemoglobin Concent 32g/dL (31-37) Red Cell Distribution Width 16.6% (11.5-14.5) Platelet Count 157x10^3/uL (140-400) Neutrophils (%) (Auto) 78% (31-73) Lymphocytes (%) (Auto) 13% (24-48) Monocytes (%) (Auto) 8% (0-9) Eosinophils (%) (Auto) 0% (0-3) Basophils (%) (Auto) 1% (0-3) Neutrophils # (Auto) 5.6x10^3uL (1.8-7.7) Lymphocytes # (Auto) 0.9x10^3/uL (1.0-4.8) Monocytes # (Auto) 0.6x10^3/uL (0.0-1.1) Eosinophils # (Auto) 0.0x10^3/uL (0.0-0.7) Basophils # (Auto) 0.0x10^3/uL (0.0-0.2) Sodium Level 140mmol/L (136-145) Potassium Level 3.1mmol/L (3.5-5.1) Chloride Level 102mmol/L (98-107) Carbon Dioxide Level 29mmol/L (21-32) Anion Gap 9 (6-14) Blood Urea Nitrogen 30mg/dL (8-26) Creatinine 2.6mg/dL (0.7-1.3) Estimated GFR (Cockcroft-Gault) 24.6 Glucose Level 87mg/dL (70-99) Calcium Level 8.4mg/dL (8.5-10.1) Glucose (Fingerstick) 79mg/dL (70-99) 130mg/dL (70-99) Prothrombin Time 19.0SEC (11.7-14.0) Prothromb Time International Ratio 1.7 (0.8-1.1) Test 06/10/16 16:41 06/10/16 20:20 06/11/16 07:49 Glucose (Fingerstick) 135mg/dL (70-99) 132mg/dL (70-99) 71mg/dL (70-99) Laboratory Tests Test 06/10/16 11:09 06/10/16 14:10 06/10/16 16:41 06/10/16 20:20 Glucose (Fingerstick) 130mg/dL (70-99) 135mg/dL (70-99) 132mg/dL (70-99) Prothrombin Time 19.0SEC (11.7-14.0) Prothromb Time International Ratio 1.7 (0.8-1.1) Test 06/11/16 07:49 Glucose (Fingerstick) 71mg/dL (70-99) Medications Current Medications Heparin Sodium (Porcine) 5,000 unit Q8HRS SQ Last administered on 06/04/16 13: 44; Start 06/03/16 at 06:00; Stop 06/04/16 at 14:34; Status DC Furosemide (Lasix) 40 mg BID92 IVP Last administered on 06/07/16 11:02; Start 06/03/16 at 09:00; Stop 06/08/16 at 10:20; Status DC Allopurinol (Zyloprim) 200 mg DAILY PO Last administered on 06/10/16 08:27; Start 06/03/16 at 15:00 Dabigatran (Pradaxa) 75 mg BID PO Last administered on 06/07/16 00:07; Start 06/03/16 at 15:00; Stop 06/06/16 at 21:01; Status DC Diltiazem HCl (Cardizem 24hr Cd) 120 mg DAILY PO Last administered on 08:42; Start 06/03/16 at 15:00; Stop 06/05/16 at 15:46; Status DC Furosemide (Lasix) 40 mg BID92 PO ; Start 06/03/16 at 15:00; Stop 06/03/16 at 16 :42; Status DC Hydralazine HCl (Apresoline) 75 mg TID PO Last administered on 06/10/16 20:21 ; Start 06/03/16 at 15:00 Metoprolol Succinate (Toprol Xl) 50 mg DAILY PO Last administered on 06/10/16 09:00; Start 06/03/16 at 15:00 Non-Formulary Medication 100 unit prn SQ ; Start 06/03/16 at 14:15; Stop at 16:02; Status DC Non-Formulary Medication 100 unit prn SQ ; Start 06/03/16 at 14:15; Status UNV Losartan Potassium (Cozaar) 100 mg DAILY PO Last administered on 06/10/16 08: 27; Start 06/03/16 at 15:00 Potassium Chloride (Klor-Con) 20 meq DAILYWBKFT PO ; Start 06/03/16 at 15:00; Stop 06/03/16 at 16:42; Status DC Atorvastatin Calcium (Lipitor) 5 mg QHS PO Last administered on 06/10/16 20:22 ; Start 06/03/16 at 21:00 Torsemide (Demadex) 100 mg DAILY PO ; Start 06/03/16 at 15:00; Stop 06/03/16 at 16:42; Status DC Insulin Aspart (Novolog) 0-5 UNITS TIDWMEALS SQ Last administered on 06/05/16 18:02; Start 06/03/16 at 17:00 Dextrose 12.5 gm PRN Q15MIN PRN IV SEE COMMENTS; Start 06/03/16 at 16:00 Insulin Detemir (Levemir) 25 units QHS SQ Last administered on 06/10/16 20:27 ; Start 06/03/16 at 21:00 Potassium Chloride (Klor-Con) 20 meq BID PO Last administered on 06/07/16 21: 47; Start 06/03/16 at 21:00; Stop 06/08/16 at 10:20; Status DC Potassium Chloride (Klor-Con) 40 meq 1X ONCE PO Last administered on 11:45; Start 06/04/16 at 10:30; Stop 06/04/16 at 10:35; Status DC Acetaminophen/ Hydrocodone Bitart (Lortab 5/325) 1 tab PRN Q4HRS PRN PO MODERATE PAIN Last administered on 06/08/16 16:17; Start 06/04/16 at 22:00 Metolazone (Zaroxolyn) 5 mg DAILY PO Last administered on 06/10/16 08:27; Start 06/05/16 at 16:00 Info (Anti-Coagulation Monitoring By Pharmacy) 1 each PRN DAILY PRN MC SEE COMMENTS Last administered on 06/08/16 08:43; Start 06/06/16 at 08:00 Regadenoson (Lexiscan) 0.4 mg 1X ONCE IV Last administered on 06/06/16 08:33 ; Start 06/06/16 at 08:15; Stop 06/06/16 at 08:16; Status DC Albuterol/ Ipratropium (Duoneb) 3 ml PRN Q4HRS PRN NEB SHORTNESS OF BREATH Last administered on 06/06/16 11:16; Start 06/06/16 at 10:45 Apixaban (Eliquis) 5 mg BID PO Last administered on 06/07/16 21:47; Start at 09:00; Stop 06/08/16 at 10:50; Status DC Midazolam HCl (Versed) 5 mg STK-MED ONCE .ROUTE ; Start 06/06/16 at 13:53; Stop 06/06/16 at 13:54; Status DC Fentanyl Citrate 250 mcg 250 mcg STK-MED ONCE .ROUTE ; Start 06/06/16 at 13:53; Stop 06/06/16 at 13:54; Status DC Dobutamine HCl/ Dextrose 250 ml @ 0 mls/hr CONT PRN IV SEE I/O RECORD Last administered on 06/07/16 21:50; Start 06/06/16 at 16:30; Stop 06/08/16 at 14:15 ; Status DC Potassium Chloride (Klor-Con) 40 meq 1X ONCE PO Last administered on 15:33; Start 06/07/16 at 12:45; Stop 06/07/16 at 12:48; Status DC Hydralazine HCl (Apresoline) 10 mg PRN Q4HRS PRN IVP ELEVATED BP, SEE COMMENTS ; Start 06/07/16 at 13:00 Lidocaine/Sodium Bicarbonate (Buffered Lidocaine 1%) 20 ml STK-MED ONCE IJ ; Start 06/07/16 at 13:20; Stop 06/07/16 at 13:21; Status DC Heparin Sodium (Porcine) 18899 unit 10,000 unit STK-MED ONCE .ROUTE ; Start at 13:20; Stop 06/07/16 at 13:21; Status DC Heparin Sodium/ Sodium Chloride 500 ml @ As Directed STK-MED ONCE .ROUTE ; Start 06/07/16 at 13:20; Stop 06/07/16 at 13:21; Status DC Lidocaine/Sodium Bicarbonate (Buffered Lidocaine 1%) 3 ml 1X ONCE IJ Last administered on 06/07/16 13:45; Start 06/07/16 at 13:45; Stop 06/07/16 at 13:46 ; Status DC Heparin Sodium/ Sodium Chloride 60 unit 1X ONCE IV Last administered on 13:45; Start 06/07/16 at 13:45; Stop 06/07/16 at 13:46; Status DC Heparin Sodium (Porcine) 2,400 unit 1X ONCE INT CAT Last administered on 13:45; Start 06/07/16 at 13:45; Stop 06/07/16 at 13:46; Status DC Info 1 each 1 each PRN DAILY PRN MC SEE COMMENTS; Start 06/07/16 at 19:00; Status Cancel Sodium Chloride 1,000 ml @ 1,000 mls/hr Q1H PRN IV hypotension; Start 06/08/16 at 08:41; Stop 06/08/16 at 14:40; Status DC Albumin Human (Albuminar) 200 ml @ 200 mls/hr 1X PRN PRN IV Hypotension; Start 06/08/16 at 08:45; Stop 06/08/16 at 14:44; Status DC Midodrine (Proamatine) 5 mg 1X ONCE PO ; Start 06/08/16 at 08:45; Stop at 08:49; Status DC Acetaminophen (Tylenol) 500 mg 1X PRN PRN PO MILD PAIN / TEMP; Start 06/08/16 at 08:45; Stop 06/09/16 at 08:44; Status DC Diphenhydramine HCl (Benadryl) 25 mg 1X PRN PRN IV ITCHING; Start 06/08/16 at 08:45; Stop 06/09/16 at 08:44; Status DC Diphenhydramine HCl (Benadryl) 25 mg 1X PRN PRN IV ITCHING; Start 06/08/16 at 08:45; Stop 06/09/16 at 08:44; Status DC Labetalol HCl (Normodyne) 10 mg PRN Q1HR PRN IVP SBP > 180; Start 06/08/16 at 08:45; Stop 06/09/16 at 08:44; Status DC Clonidine HCl (Catapres) 0.1 mg 1X PRN PRN PO SBP > 180; Start 06/08/16 at 08: 45; Stop 06/09/16 at 08:44; Status DC Info (PHARMACY MONITORING -- do not chart) 1 each PRN DAILY PRN MC SEE COMMENTS ; Start 06/08/16 at 08:45 Darbepoetin Jose (Aranesp) 60 mcg WEEKLYHS SQ Last administered on 06/08/16 20 :46; Start 06/08/16 at 21:00 Furosemide (Lasix) 40 mg DAILY PO Last administered on 06/10/16 08:26; Start 06/08/16 at 11:00 Apixaban (Eliquis) 5 mg BID PO Last administered on 06/10/16 20:22; Start at 21:00 Phytonadione (Mephyton) 2.5 mg 1X ONCE PO Last administered on 06/08/16 14:57 ; Start 06/08/16 at 14:00; Stop 06/08/16 at 14:01; Status DC Apixaban 5 mg 5 mg BID PO ; Start 06/08/16 at 21:00; Status UNV Sodium Chloride 1,000 ml @ 1,000 mls/hr Q1H PRN IV hypotension; Start 06/09/16 at 11:31; Stop 06/09/16 at 17:30; Status DC Albumin Human 200 ml @ 200 mls/hr 1X PRN PRN IV Hypotension; Start 06/09/16 at 11:45; Stop 06/09/16 at 17:44; Status DC Sodium Chloride (Iv Sodium Chloride 0.9% 1000ml Bag) 1,000 ml @ 400 mls/hr Q2H30M PRN IV PATENCY; Start 06/09/16 at 11:31; Stop 06/09/16 at 23:30; Status DC Info (PHARMACY MONITORING -- do not chart) 1 each PRN DAILY PRN MC SEE COMMENTS ; Start 06/09/16 at 11:45; Status UNV Info (PHARMACY MONITORING -- do not chart) 1 each PRN DAILY PRN MC SEE COMMENTS ; Start 06/09/16 at 11:45; Status UNV Ondansetron HCl (Zofran) 4 mg PRN Q6HRS PRN IV NAUSEA/VOMITING; Start 1/29/17 at 14:15 Acetaminophen (Tylenol) 500 mg PRN Q6HRS PRN PO MILD PAIN / TEMP; Start at 14:15 Active Scripts Active Reported Furosemide 40 Mg Tablet 40 Mg PO BID Hydralazine Hcl 25 Mg Tablet 75 Mg PO TID Pradaxa (Dabigatran Etexilate Mesylate) 75 Mg Capsule 75 Mg PO BID Metolazone 2.5 Mg Tablet 2.5 Mg PO THREE TIMES A WEEK Allopurinol 100 Mg Tablet 200 Mg PO DAILY Potassium Chloride 20 Meq Tablet.er 20 Meq PO DAILY Toprol Xl (Metoprolol Succinate) 50 Mg Tab.er.24h 50 Mg PO DAILY Levemir (Insulin Detemir) 100 Unit/1 Ml Vial 25 Unit SQ QHS Losartan Potassium 100 Mg Tablet 100 Mg PO DAILY Pravastatin Sodium 20 Mg Tablet 20 Mg PO DAILY Torsemide 100 Mg Tablet 100 Mg PO DAILY Novolog (Insulin Aspart) 100 Unit/1 Ml Cartridge 100 Unit SQ PRN Diltiazem 24HR Er (Diltiazem Hcl) 120 Mg Cap.er.24h 120 Mg PO DAILY Vitals/I & O Vital Sign - Last 24 Hours 06/10/16 06/10/16 06/10/16 06/10/16 09:00 09:00 11:06 14:50 Temp 98.5 98.5 Pulse 78 78 78 78 Resp 24 B/P 148/72 148/72 128/62 128/62 Pulse Ox 97 O2 Delivery Room Air 06/10/16 06/10/16 06/10/16 06/10/16 15:00 18:45 19:10 19:35 Temp 98.5 98.0 98.5 98.0 Pulse 78 69 Resp 22 B/P 118/62 107/58 Pulse Ox 97 95 O2 Delivery Room Air Room Air Room Air Room Air 06/10/16 06/10/16 06/11/16 06/11/16 20:21 23:12 02:25 07:19 Temp 98.1 97.8 97.8 98.1 97.8 97.8 Pulse 69 60 69 69 Resp 20 20 20 B/P 107/58 103/62 114/60 119/74 Pulse Ox 94 93 94 O2 Delivery Room Air Room Air Room Air Intake and Output 06/10/16 06/10/16 06/11/16 15:00 23:00 07:00 Intake Total 420 ml 0 ml Output Total 275 ml Balance 420 ml -275 ml AGUSTIN LENNON MD Jun 11, 2016 08:38
[2016-06-11] MEDS ORDERED: DIALYSIS PATIENT. MC PRN (08:45)
[2016-06-11] MEDS: ANTI-COAG MONITOR BY PHARMACY. MC PRN (09:38)
--- NOTE | 2016-06-11 11:29 | PDOC ---
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 -Gout -Arthritis -Insomnia History of Present Illness History of Present Illness HAving HD Tunnelled HD cath inserted yesterday - oozed a little bec iNR was high - I did order iNR yesterday for planned HD cath initially for today BP low side, on multiple high doses antihypertensives Hypoglycemic 79 in AM x 2 days now PT recs home, with spouse PLAN: Dec levemir from 25 to 18 qhs Dec hydralazine to 50 TID from 75 MIght need to dec losrtan dose too Vitals Vitals Vital Signs Date Time Temp Pulse Resp B/P Pulse Ox O2 Delivery O2 Flow Rate FiO2 06/11/16 08:00 Room Air 06/11/16 07:19 97.8 69 20 119/74 94 97.8 Physical Exam General: Alert, Oriented X3 Heart: Normal S1, Normal S2 Lungs: Clear Abdomen: Soft, No tenderness Extremities: No clubbing, No cyanosis, Other (persistent edema today; b/l charcot foot deformity) Skin: No rashes, Other (ecchymosis left arm ) Labs LABS Laboratory Tests Test 06/10/16 14:10 06/10/16 16:41 06/10/16 20:20 06/11/16 07:49 Prothrombin Time 19.0SEC (11.7-14.0) Prothromb Time International Ratio 1.7 (0.8-1.1) Glucose (Fingerstick) 135mg/dL (70-99) 132mg/dL (70-99) 71mg/dL (70-99) Review of Systems Review of Systems denies all 14 pt systems Comment Review of Relevant I have reviewed the following items jennifer (where applicable) has been applied. Labs Laboratory Tests Test 06/09/16 14:45 06/09/16 16:28 06/09/16 20:40 06/10/16 05:15 Glucose (Fingerstick) 87mg/dL (70-99) 108mg/dL (70-99) 177mg/dL (70-99) White Blood Count 7.2x10^3/uL (4.0-11.0) Red Blood Count 3.49x10^6/uL (4.30-5.70) Hemoglobin 10.8g/dL (13.0-17.5) Hematocrit 33.9% (39.0-53.0) Mean Corpuscular Volume 97fL (79-100) Mean Corpuscular Hemoglobin 31pg (25-35) Mean Corpuscular Hemoglobin Concent 32g/dL (31-37) Red Cell Distribution Width 16.6% (11.5-14.5) Platelet Count 157x10^3/uL (140-400) Neutrophils (%) (Auto) 78% (31-73) Lymphocytes (%) (Auto) 13% (24-48) Monocytes (%) (Auto) 8% (0-9) Eosinophils (%) (Auto) 0% (0-3) Basophils (%) (Auto) 1% (0-3) Neutrophils # (Auto) 5.6x10^3uL (1.8-7.7) Lymphocytes # (Auto) 0.9x10^3/uL (1.0-4.8) Monocytes # (Auto) 0.6x10^3/uL (0.0-1.1) Eosinophils # (Auto) 0.0x10^3/uL (0.0-0.7) Basophils # (Auto) 0.0x10^3/uL (0.0-0.2) Sodium Level 140mmol/L (136-145) Potassium Level 3.1mmol/L (3.5-5.1) Chloride Level 102mmol/L (98-107) Carbon Dioxide Level 29mmol/L (21-32) Anion Gap 9 (6-14) Blood Urea Nitrogen 30mg/dL (8-26) Creatinine 2.6mg/dL (0.7-1.3) Estimated GFR (Cockcroft-Gault) 24.6 Glucose Level 87mg/dL (70-99) Calcium Level 8.4mg/dL (8.5-10.1) Test 06/10/16 07:49 06/10/16 11:09 06/10/16 14:10 06/10/16 16:41 Glucose (Fingerstick) 79mg/dL (70-99) 130mg/dL (70-99) 135mg/dL (70-99) Prothrombin Time 19.0SEC (11.7-14.0) Prothromb Time International Ratio 1.7 (0.8-1.1) Test 06/10/16 20:20 06/11/16 07:49 Glucose (Fingerstick) 132mg/dL (70-99) 71mg/dL (70-99) Laboratory Tests Test 06/10/16 14:10 06/10/16 16:41 06/10/16 20:20 06/11/16 07:49 Prothrombin Time 19.0SEC (11.7-14.0) Prothromb Time International Ratio 1.7 (0.8-1.1) Glucose (Fingerstick) 135mg/dL (70-99) 132mg/dL (70-99) 71mg/dL (70-99) Medications Current Medications Heparin Sodium (Porcine) 5,000 unit Q8HRS SQ Last administered on 06/04/16 13: 44; Start 06/03/16 at 06:00; Stop 06/04/16 at 14:34; Status DC Furosemide (Lasix) 40 mg BID92 IVP Last administered on 06/07/16 11:02; Start 06/03/16 at 09:00; Stop 06/08/16 at 10:20; Status DC Allopurinol (Zyloprim) 200 mg DAILY PO Last administered on 06/10/16 08:27; Start 06/03/16 at 15:00 Dabigatran (Pradaxa) 75 mg BID PO Last administered on 06/07/16 00:07; Start 06/03/16 at 15:00; Stop 06/06/16 at 21:01; Status DC Diltiazem HCl (Cardizem 24hr Cd) 120 mg DAILY PO Last administered on 08:42; Start 06/03/16 at 15:00; Stop 06/05/16 at 15:46; Status DC Furosemide (Lasix) 40 mg BID92 PO ; Start 06/03/16 at 15:00; Stop 06/03/16 at 16 :42; Status DC Hydralazine HCl (Apresoline) 75 mg TID PO Last administered on 06/10/16 20:21 ; Start 06/03/16 at 15:00 Metoprolol Succinate (Toprol Xl) 50 mg DAILY PO Last administered on 06/10/16 09:00; Start 06/03/16 at 15:00 Non-Formulary Medication 100 unit prn SQ ; Start 06/03/16 at 14:15; Stop at 16:02; Status DC Non-Formulary Medication 100 unit prn SQ ; Start 06/03/16 at 14:15; Status UNV Losartan Potassium (Cozaar) 100 mg DAILY PO Last administered on 06/10/16 08: 27; Start 06/03/16 at 15:00 Potassium Chloride (Klor-Con) 20 meq DAILYWBKFT PO ; Start 06/03/16 at 15:00; Stop 06/03/16 at 16:42; Status DC Atorvastatin Calcium (Lipitor) 5 mg QHS PO Last administered on 06/10/16 20:22 ; Start 06/03/16 at 21:00 Torsemide (Demadex) 100 mg DAILY PO ; Start 06/03/16 at 15:00; Stop 06/03/16 at 16:42; Status DC Insulin Aspart (Novolog) 0-5 UNITS TIDWMEALS SQ Last administered on 06/05/16 18:02; Start 06/03/16 at 17:00 Dextrose 12.5 gm PRN Q15MIN PRN IV SEE COMMENTS; Start 06/03/16 at 16:00 Insulin Detemir (Levemir) 25 units QHS SQ Last administered on 06/10/16 20:27 ; Start 06/03/16 at 21:00 Potassium Chloride (Klor-Con) 20 meq BID PO Last administered on 06/07/16 21: 47; Start 06/03/16 at 21:00; Stop 06/08/16 at 10:20; Status DC Potassium Chloride (Klor-Con) 40 meq 1X ONCE PO Last administered on 11:45; Start 06/04/16 at 10:30; Stop 06/04/16 at 10:35; Status DC Acetaminophen/ Hydrocodone Bitart (Lortab 5/325) 1 tab PRN Q4HRS PRN PO MODERATE PAIN Last administered on 06/08/16 16:17; Start 06/04/16 at 22:00 Metolazone (Zaroxolyn) 5 mg DAILY PO Last administered on 06/10/16 08:27; Start 06/05/16 at 16:00 Info (Anti-Coagulation Monitoring By Pharmacy) 1 each PRN DAILY PRN MC SEE COMMENTS Last administered on 06/11/16 09:38; Start 06/06/16 at 08:00 Regadenoson (Lexiscan) 0.4 mg 1X ONCE IV Last administered on 06/06/16 08:33 ; Start 06/06/16 at 08:15; Stop 06/06/16 at 08:16; Status DC Albuterol/ Ipratropium (Duoneb) 3 ml PRN Q4HRS PRN NEB SHORTNESS OF BREATH Last administered on 06/06/16 11:16; Start 06/06/16 at 10:45 Apixaban (Eliquis) 5 mg BID PO Last administered on 06/07/16 21:47; Start at 09:00; Stop 06/08/16 at 10:50; Status DC Midazolam HCl (Versed) 5 mg STK-MED ONCE .ROUTE ; Start 06/06/16 at 13:53; Stop 06/06/16 at 13:54; Status DC Fentanyl Citrate 250 mcg 250 mcg STK-MED ONCE .ROUTE ; Start 06/06/16 at 13:53; Stop 06/06/16 at 13:54; Status DC Dobutamine HCl/ Dextrose 250 ml @ 0 mls/hr CONT PRN IV SEE I/O RECORD Last administered on 06/07/16 21:50; Start 06/06/16 at 16:30; Stop 06/08/16 at 14:15 ; Status DC Potassium Chloride (Klor-Con) 40 meq 1X ONCE PO Last administered on 15:33; Start 06/07/16 at 12:45; Stop 06/07/16 at 12:48; Status DC Hydralazine HCl (Apresoline) 10 mg PRN Q4HRS PRN IVP ELEVATED BP, SEE COMMENTS ; Start 06/07/16 at 13:00 Lidocaine/Sodium Bicarbonate (Buffered Lidocaine 1%) 20 ml STK-MED ONCE IJ ; Start 06/07/16 at 13:20; Stop 06/07/16 at 13:21; Status DC Heparin Sodium (Porcine) 94287 unit 10,000 unit STK-MED ONCE .ROUTE ; Start at 13:20; Stop 06/07/16 at 13:21; Status DC Heparin Sodium/ Sodium Chloride 500 ml @ As Directed STK-MED ONCE .ROUTE ; Start 06/07/16 at 13:20; Stop 06/07/16 at 13:21; Status DC Lidocaine/Sodium Bicarbonate (Buffered Lidocaine 1%) 3 ml 1X ONCE IJ Last administered on 06/07/16 13:45; Start 06/07/16 at 13:45; Stop 06/07/16 at 13:46 ; Status DC Heparin Sodium/ Sodium Chloride 60 unit 1X ONCE IV Last administered on 13:45; Start 06/07/16 at 13:45; Stop 06/07/16 at 13:46; Status DC Heparin Sodium (Porcine) 2,400 unit 1X ONCE INT CAT Last administered on 13:45; Start 06/07/16 at 13:45; Stop 06/07/16 at 13:46; Status DC Info 1 each 1 each PRN DAILY PRN MC SEE COMMENTS; Start 06/07/16 at 19:00; Status Cancel Sodium Chloride 1,000 ml @ 1,000 mls/hr Q1H PRN IV hypotension; Start 06/08/16 at 08:41; Stop 06/08/16 at 14:40; Status DC Albumin Human (Albuminar) 200 ml @ 200 mls/hr 1X PRN PRN IV Hypotension; Start 06/08/16 at 08:45; Stop 06/08/16 at 14:44; Status DC Midodrine (Proamatine) 5 mg 1X ONCE PO ; Start 06/08/16 at 08:45; Stop at 08:49; Status DC Acetaminophen (Tylenol) 500 mg 1X PRN PRN PO MILD PAIN / TEMP; Start 06/08/16 at 08:45; Stop 06/09/16 at 08:44; Status DC Diphenhydramine HCl (Benadryl) 25 mg 1X PRN PRN IV ITCHING; Start 06/08/16 at 08:45; Stop 06/09/16 at 08:44; Status DC Diphenhydramine HCl (Benadryl) 25 mg 1X PRN PRN IV ITCHING; Start 06/08/16 at 08:45; Stop 06/09/16 at 08:44; Status DC Labetalol HCl (Normodyne) 10 mg PRN Q1HR PRN IVP SBP > 180; Start 06/08/16 at 08:45; Stop 06/09/16 at 08:44; Status DC Clonidine HCl (Catapres) 0.1 mg 1X PRN PRN PO SBP > 180; Start 06/08/16 at 08: 45; Stop 06/09/16 at 08:44; Status DC Info (PHARMACY MONITORING -- do not chart) 1 each PRN DAILY PRN MC SEE COMMENTS ; Start 06/08/16 at 08:45 Darbepoetin Jose (Aranesp) 60 mcg WEEKLYHS SQ Last administered on 06/08/16 20 :46; Start 06/08/16 at 21:00 Furosemide (Lasix) 40 mg DAILY PO Last administered on 06/10/16 08:26; Start 06/08/16 at 11:00 Apixaban (Eliquis) 5 mg BID PO Last administered on 06/10/16 20:22; Start at 21:00 Phytonadione (Mephyton) 2.5 mg 1X ONCE PO Last administered on 06/08/16 14:57 ; Start 06/08/16 at 14:00; Stop 06/08/16 at 14:01; Status DC Apixaban 5 mg 5 mg BID PO ; Start 06/08/16 at 21:00; Status UNV Sodium Chloride 1,000 ml @ 1,000 mls/hr Q1H PRN IV hypotension; Start 06/09/16 at 11:31; Stop 06/09/16 at 17:30; Status DC Albumin Human 200 ml @ 200 mls/hr 1X PRN PRN IV Hypotension; Start 06/09/16 at 11:45; Stop 06/09/16 at 17:44; Status DC Sodium Chloride (Iv Sodium Chloride 0.9% 1000ml Bag) 1,000 ml @ 400 mls/hr Q2H30M PRN IV PATENCY; Start 06/09/16 at 11:31; Stop 06/09/16 at 23:30; Status DC Info (PHARMACY MONITORING -- do not chart) 1 each PRN DAILY PRN MC SEE COMMENTS ; Start 06/09/16 at 11:45; Status UNV Info (PHARMACY MONITORING -- do not chart) 1 each PRN DAILY PRN MC SEE COMMENTS ; Start 06/09/16 at 11:45; Status UNV Ondansetron HCl (Zofran) 4 mg PRN Q6HRS PRN IV NAUSEA/VOMITING; Start 06/10/16 at 14:15 Acetaminophen 500 mg 500 mg PRN Q6HRS PRN PO MILD PAIN / TEMP; Start 06/10/16 at 14:15 Sodium Chloride 1,000 ml @ 1,000 mls/hr Q1H PRN IV hypotension; Start 06/11/16 at 08:00; Stop 06/11/16 at 13:59 Sodium Chloride (Iv Sodium Chloride 0.9% 1000ml Bag) 1,000 ml @ 400 mls/hr Q2H30M PRN IV PATENCY; Start 06/11/16 at 08:00; Stop 06/11/16 at 19:59 Info (PHARMACY MONITORING -- do not chart) 1 each PRN DAILY PRN MC SEE COMMENTS ; Start 06/11/16 at 08:45; Status UNV Active Scripts Active Reported Furosemide 40 Mg Tablet 40 Mg PO BID Hydralazine Hcl 25 Mg Tablet 75 Mg PO TID Pradaxa (Dabigatran Etexilate Mesylate) 75 Mg Capsule 75 Mg PO BID Metolazone 2.5 Mg Tablet 2.5 Mg PO THREE TIMES A WEEK Allopurinol 100 Mg Tablet 200 Mg PO DAILY Potassium Chloride 20 Meq Tablet.er 20 Meq PO DAILY Toprol Xl (Metoprolol Succinate) 50 Mg Tab.er.24h 50 Mg PO DAILY Levemir (Insulin Detemir) 100 Unit/1 Ml Vial 25 Unit SQ QHS Losartan Potassium 100 Mg Tablet 100 Mg PO DAILY Pravastatin Sodium 20 Mg Tablet 20 Mg PO DAILY Torsemide 100 Mg Tablet 100 Mg PO DAILY Novolog (Insulin Aspart) 100 Unit/1 Ml Cartridge 100 Unit SQ PRN Diltiazem 24HR Er (Diltiazem Hcl) 120 Mg Cap.er.24h 120 Mg PO DAILY Vitals/I & O Vital Sign - Last 24 Hours 06/10/16 06/10/16 06/10/16 06/10/16 14:50 15:00 18:45 19:10 Temp 98.5 98.0 98.5 98.0 Pulse 78 78 69 Resp 22 B/P 128/62 118/62 107/58 Pulse Ox 97 95 O2 Delivery Room Air Room Air Room Air 06/10/16 06/10/16 06/10/16 06/11/16 19:35 20:21 23:12 02:25 Temp 98.1 97.8 98.1 97.8 Pulse 69 60 69 Resp 20 20 B/P 107/58 103/62 114/60 Pulse Ox 94 93 O2 Delivery Room Air Room Air Room Air 06/11/16 06/11/16 07:19 08:00 Temp 97.8 97.8 Pulse 69 Resp 20 B/P 119/74 Pulse Ox 94 O2 Delivery Room Air Room Air Intake and Output 06/10/16 06/10/16 06/11/16 15:00 23:00 07:00 Intake Total 420 ml 0 ml Output Total 275 ml Balance 420 ml -275 ml VICTOR M PINA MD Jun 11, 2016 11:28
--- NOTE | 2016-06-11 11:32 | PDOC ---
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 Vitals Vital Signs Vital Signs Date Time Temp Pulse Resp B/P Pulse Ox O2 Delivery O2 Flow Rate FiO2 06/11/16 08:00 Room Air 06/11/16 07:19 97.8 69 20 119/74 94 97.8 Labs Last Labs Laboratory Tests Test 06/09/16 14:45 06/09/16 16:28 06/09/16 20:40 06/10/16 05:15 Glucose (Fingerstick) 87mg/dL (70-99) 108mg/dL (70-99) 177mg/dL (70-99) White Blood Count 7.2x10^3/uL (4.0-11.0) Red Blood Count 3.49x10^6/uL (4.30-5.70) Hemoglobin 10.8g/dL (13.0-17.5) Hematocrit 33.9% (39.0-53.0) Mean Corpuscular Volume 97fL (79-100) Mean Corpuscular Hemoglobin 31pg (25-35) Mean Corpuscular Hemoglobin Concent 32g/dL (31-37) Red Cell Distribution Width 16.6% (11.5-14.5) Platelet Count 157x10^3/uL (140-400) Neutrophils (%) (Auto) 78% (31-73) Lymphocytes (%) (Auto) 13% (24-48) Monocytes (%) (Auto) 8% (0-9) Eosinophils (%) (Auto) 0% (0-3) Basophils (%) (Auto) 1% (0-3) Neutrophils # (Auto) 5.6x10^3uL (1.8-7.7) Lymphocytes # (Auto) 0.9x10^3/uL (1.0-4.8) Monocytes # (Auto) 0.6x10^3/uL (0.0-1.1) Eosinophils # (Auto) 0.0x10^3/uL (0.0-0.7) Basophils # (Auto) 0.0x10^3/uL (0.0-0.2) Sodium Level 140mmol/L (136-145) Potassium Level 3.1mmol/L (3.5-5.1) Chloride Level 102mmol/L (98-107) Carbon Dioxide Level 29mmol/L (21-32) Anion Gap 9 (6-14) Blood Urea Nitrogen 30mg/dL (8-26) Creatinine 2.6mg/dL (0.7-1.3) Estimated GFR (Cockcroft-Gault) 24.6 Glucose Level 87mg/dL (70-99) Calcium Level 8.4mg/dL (8.5-10.1) Test 06/10/16 07:49 06/10/16 11:09 06/10/16 14:10 06/10/16 16:41 Glucose (Fingerstick) 79mg/dL (70-99) 130mg/dL (70-99) 135mg/dL (70-99) Prothrombin Time 19.0SEC (11.7-14.0) Prothromb Time International Ratio 1.7 (0.8-1.1) Test 06/10/16 20:20 06/11/16 07:49 Glucose (Fingerstick) 132mg/dL (70-99) 71mg/dL (70-99) Laboratory Tests Test 06/10/16 14:10 06/10/16 16:41 06/10/16 20:20 06/11/16 07:49 Prothrombin Time 19.0SEC (11.7-14.0) Prothromb Time International Ratio 1.7 (0.8-1.1) Glucose (Fingerstick) 135mg/dL (70-99) 132mg/dL (70-99) 71mg/dL (70-99) CASSY SIERRA MD Jun 11, 2016 11:32
[2016-06-11] MEDS ORDERED: MAGNESIUM SULFATE 2GM 50 ML IV PRN (12:00)
[2016-06-11] MEDS: LOSARTAN POTASSIUM 50 MG TABLET. PO SCH (12:00)
--- NOTE | 2016-06-11 12:28 | PDOC ---
EVELYN FARFAN NETWORK CONSULTANT 06/11/16 1228: CARDIO Progress Notes Date and Time Date of Service 06/11/16 Time of Evaluation 1315 Subjective Subjective: No Chest Pain, No shortness of breath, No Palpitations, No Dizziness, Other (Doing well; no complaints) Vitals Vitals Vital Signs Date Time Temp Pulse Resp B/P Pulse Ox O2 Delivery O2 Flow Rate FiO2 06/11/16 08:00 Room Air 06/11/16 07:19 97.8 69 20 119/74 94 97.8 Weight Weight [ ] Input and Output Intake and Output Intake and Output 06/11/16 07:00 Intake Total 420 ml Output Total 275 ml Balance 145 ml Intake Oral 420 ml Output Urine Total 275 ml # Voids 1 Laboratory Labs Laboratory Tests Test 06/10/16 14:10 06/10/16 16:41 06/10/16 20:20 06/11/16 07:49 Prothrombin Time 19.0SEC (11.7-14.0) Prothromb Time International Ratio 1.7 (0.8-1.1) Glucose (Fingerstick) 135mg/dL (70-99) 132mg/dL (70-99) 71mg/dL (70-99) Review of Systems Constitutional: yes: alert, oriented, weakness Ears/Nose/Throat: Yes: no symptom reported Eyes: Yes: no symptom reported Pulmonary: Yes dyspnea Cardiovascular: Yes orthopnea, Yes edema Gastrointestional: Yes: constipation Genitourinary: Yes: no symptom reported Musculoskeletal: Yes: muscle stiffness Skin: Yes no symptom reported Physical Exam HEENT: Neck Supple W Full Motion Chest: Symmetric LUNGS: Clear to Auscultation, Other (diminished bases ) Heart: S1S2, irregularly irregular (AFIB with occasional PVCs. ) Abdomen: Soft N/T Extremities: Other (1-2+ pitting bilateral LE ) Neurology: alert, oriented, follow commands Assessment Assessment 1. Acute on chronic systolic heart failure HD initiated 04/07. Appears clinically compensated LVEF of 25-30% per echo Fluid offloading in HD per nephrology Repeat 2-D echo in 3 months to evaluate the need for AICD implantation for primary prevention of SCD. f/u with Dr. Newman in 1 month as scheduled. 2. Hypertension low-normotensive. Hydralazine decreased per PCP 3. Permanent AFIB rate controlled with BB. Eliquis for stroke prophylaxis 4. Mildly elevated troponin with h/o mild nonobstructive CAD peak 0.094. type II, demand ischemia in the setting of SARAH/CKD MPI noted with small to moderate infarction involving the base to mid lateral wall without any significant ischemia. Continue with secondary prevention 5. Hyperlipidemia statin therapy. 6. Diabetes type 2 per PCP 7. New ESRD HD initiated per nephrology 8. Renal cell carcinoma LEX NEWMAN MD 06/11/16 1547: CARDIO Progress Notes Assessment Assessment Patient seen and examined. Agree with LAW FIRM RECEPTIONIST's assessment and plan. Acute on chronic systolic heart failure better compensated with fluid removal with hemodialysis. Permanent atrial fibrillation rate controlled. Continue current medical regimen. Follow-up with our office in one month. EVELYN FARFAN APRN Jun 11, 2016 12:28 LEX NEWMAN MD Jun 11, 2016 15:47
[2016-06-11] MEDS: FUROSEMIDE 40 MG TABLET PO SCH (13:10)
[2016-06-11] MEDS: METOPROLOL SUCC 24HR ER 50 MG TAB.ER.24H. PO SCH (13:10)
[2016-06-11] MEDS: METOLAZONE 2.5 MG TABLET PO SCH (13:11)
[2016-06-11] MEDS: ALLOPURINOL 100 MG TABLET. PO SCH (13:11)
[2016-06-11] MEDS: APIXABAN 5 MG TABLET. PO SCH ×2 (13:11→19:47)
[2016-06-11] MEDS: HYDRALAZINE 50 MG TABLET PO SCH ×2 (14:00→20:35)
[2016-06-11 14:28] VITALS: BP 116/68
[2016-06-11 14:36] VITALS: BP 116/68
--- NOTE | 2016-06-11 14:43 | RAD ---
Exam performed: 2 views of the chest. Indication: Follow-up CHF Date of Service:06/11/2016 1:52 PM . Comparison : 06/06/16 Findings: PA and lateral radiographs of the chest reveal a mildly enlarged cardiomediastinal contour. Pulmonary vascularity is congested. Coarse prominent interstitial markings are seen in both perihilar regions which appear improved since previous study. There is a right-sided dialysis type catheter terminating distal to the atriocaval junction. No pleural fluid is seen. The visualized osseous structures are unremarkable. Impression: Cardiomegaly with improving low-grade CHF
[2016-06-11 19:00] VITALS: BP 114/65
[2016-06-11] MEDS: ATORVASTATIN CALCIUM 10 MG TABLET. PO SCH (20:35)
[2016-06-11] MEDS ORDERED: INSULIN DETEMIR 300 UNITS/3 ML INSULN.PEN. SQ SCH (21:00)
[2016-06-11 23:00] VITALS: BP 124/60
[2016-06-12] VITALS (10 sets, daily range): BP systolic 119–145; BP diastolic 59–94
[2016-06-12 04:06] LABS: ALBUMIN 2.8 g/dL (3.4-5.0); CREATININE 2.4 mg/dL (0.7-1.3); PHOSPHORUS 3.4 mg/dL (2.6-4.7)
[2016-06-12 04:21] LABS: POTASSIUM 2.9 mmol/L (3.5-5.1)
[2016-06-12] MEDS ORDERED: POTASSIUM CHLORIDE 20 MEQ TABLET.ER. PO ONE ×2 (05:00→07:00)
[2016-06-12] MEDS: INSULIN ASPART 300 UNITS/3 ML INSULN.PEN SQ SCH ×2 (08:00→12:00)
[2016-06-12] MEDS ORDERED: INSU100V13 SQ (08:48)
[2016-06-12] MEDS: ANTI-COAG MONITOR BY PHARMACY. MC PRN (09:00)
[2016-06-12] MEDS ORDERED: LIDOCAINE 1%/EPI 1:100,000 20 ML VIAL. ONE (09:02)
[2016-06-12] MEDS ORDERED: HEPARIN for IV BOLUS 10,000 UNIT/10 ML VIAL. ONE (09:02)
--- NOTE | 2016-06-12 09:06 | PDOC ---
PROGRESS NOTES Subjective Subjective c/c - f/u of RCC ROS - no hematuria Objective Objective Vital Signs Date Time Temp Pulse Resp B/P Pulse Ox O2 Delivery O2 Flow Rate FiO2 06/12/16 07:47 95 Room Air 06/12/16 07:29 97.4 81 18 119/59 97.4 Intake and Output 06/12/16 07:00 Intake Total 850 ml Balance 850 ml Intake Oral 850 ml Physical Exam Heart: Normal S1, Normal S2 General: Alert, Oriented X3 Neuro: Normal speech Psych/Mental Status: Mental status NL Assessment Assessment Problems Medical Problems: (1) ESRD (end stage renal disease) Status: Acute IMPRESSION AND PLAN: 1. Renal cell carcinoma of the left kidney, diagnosed via biopsy on 05/02/2016. 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 I obtained records from [facility]. I discussed in detail with the patient regarding the treatment for renal cell carcinoma. Standard management would be surgical resection. I have recommended urology consultation for further management. The patient has already been followed by Urology since 2013 and he had an appointment to see Dr. Heather Almonte at on 06/08/16 Urology for further management. He will reschedule it. 2. Congestive heart failure. Appreciate Cardiology consultation. Dyspnea improving. LVEF of 25-30% 3. Chronic kidney disease. Appreciate Nephrology consultation. He has stage IV-V chronic kidney disease. Hemodialysis started 06/07/16. Comment Review of Relevant I have reviewed the following items jennifer (where applicable) has been applied. Labs Laboratory Tests Test 06/10/16 11:09 06/10/16 14:10 06/10/16 16:41 06/10/16 20:20 Glucose (Fingerstick) 130mg/dL (70-99) 135mg/dL (70-99) 132mg/dL (70-99) Prothrombin Time 19.0SEC (11.7-14.0) Prothromb Time International Ratio 1.7 (0.8-1.1) Test 06/11/16 07:49 06/11/16 17:01 06/11/16 20:33 06/12/16 03:10 Glucose (Fingerstick) 71mg/dL (70-99) 160mg/dL (70-99) 162mg/dL (70-99) Hemoglobin 10.7g/dL (13.0-17.5) Sodium Level 141mmol/L (136-145) Potassium Level 2.9mmol/L (3.5-5.1) Chloride Level 103mmol/L (98-107) Carbon Dioxide Level 28mmol/L (21-32) Anion Gap 10 (6-14) Blood Urea Nitrogen 31mg/dL (8-26) Creatinine 2.4mg/dL (0.7-1.3) Estimated GFR (Cockcroft-Gault) 27.0 Glucose Level 107mg/dL (70-99) Calcium Level 8.0mg/dL (8.5-10.1) Phosphorus Level 3.4mg/dL (2.6-4.7) Magnesium Level 1.8mg/dL (1.8-2.4) Albumin 2.8g/dL (3.4-5.0) Test 06/12/16 07:30 Glucose (Fingerstick) 86mg/dL (70-99) Laboratory Tests Test 06/11/16 17:01 06/11/16 20:33 06/12/16 03:10 06/12/16 07:30 Glucose (Fingerstick) 160mg/dL (70-99) 162mg/dL (70-99) 86mg/dL (70-99) Hemoglobin 10.7g/dL (13.0-17.5) Sodium Level 141mmol/L (136-145) Potassium Level 2.9mmol/L (3.5-5.1) Chloride Level 103mmol/L (98-107) Carbon Dioxide Level 28mmol/L (21-32) Anion Gap 10 (6-14) Blood Urea Nitrogen 31mg/dL (8-26) Creatinine 2.4mg/dL (0.7-1.3) Estimated GFR (Cockcroft-Gault) 27.0 Glucose Level 107mg/dL (70-99) Calcium Level 8.0mg/dL (8.5-10.1) Phosphorus Level 3.4mg/dL (2.6-4.7) Magnesium Level 1.8mg/dL (1.8-2.4) Albumin 2.8g/dL (3.4-5.0) Medications Current Medications Heparin Sodium (Porcine) 5,000 unit Q8HRS SQ Last administered on 06/04/16 13: 44; Start 06/03/16 at 06:00; Stop 06/04/16 at 14:34; Status DC Furosemide (Lasix) 40 mg BID92 IVP Last administered on 06/07/16 11:02; Start 06/03/16 at 09:00; Stop 06/08/16 at 10:20; Status DC Allopurinol (Zyloprim) 200 mg DAILY PO Last administered on 06/11/16 13:11; Start 06/03/16 at 15:00 Dabigatran (Pradaxa) 75 mg BID PO Last administered on 06/07/16 00:07; Start 06/03/16 at 15:00; Stop 06/06/16 at 21:01; Status DC Diltiazem HCl (Cardizem 24hr Cd) 120 mg DAILY PO Last administered on 08:42; Start 06/03/16 at 15:00; Stop 06/05/16 at 15:46; Status DC Furosemide (Lasix) 40 mg BID92 PO ; Start 06/03/16 at 15:00; Stop 06/03/16 at 16 :42; Status DC Hydralazine HCl (Apresoline) 75 mg TID PO Last administered on 06/10/16 20:21 ; Start 06/03/16 at 15:00; Stop 06/11/16 at 11:26; Status DC Metoprolol Succinate (Toprol Xl) 50 mg DAILY PO Last administered on 06/11/16 13:10; Start 06/03/16 at 15:00 Non-Formulary Medication 100 unit prn SQ ; Start 06/03/16 at 14:15; Stop at 16:02; Status DC Non-Formulary Medication 100 unit prn SQ ; Start 06/03/16 at 14:15; Status UNV Losartan Potassium (Cozaar) 100 mg DAILY PO Last administered on 06/10/16 08: 27; Start 06/03/16 at 15:00; Stop 06/11/16 at 11:29; Status DC Potassium Chloride (Klor-Con) 20 meq DAILYWBKFT PO ; Start 06/03/16 at 15:00; Stop 06/03/16 at 16:42; Status DC Atorvastatin Calcium (Lipitor) 5 mg QHS PO Last administered on 06/11/16 20:35 ; Start 06/03/16 at 21:00 Torsemide (Demadex) 100 mg DAILY PO ; Start 06/03/16 at 15:00; Stop 06/03/16 at 16:42; Status DC Insulin Aspart (Novolog) 0-5 UNITS TIDWMEALS SQ Last administered on 06/05/16 18:02; Start 06/03/16 at 17:00 Dextrose 12.5 gm PRN Q15MIN PRN IV SEE COMMENTS; Start 06/03/16 at 16:00 Insulin Detemir (Levemir) 25 units QHS SQ Last administered on 06/10/16 20:27 ; Start 06/03/16 at 21:00; Stop 06/11/16 at 11:25; Status DC Potassium Chloride (Klor-Con) 20 meq BID PO Last administered on 06/07/16 21: 47; Start 06/03/16 at 21:00; Stop 06/08/16 at 10:20; Status DC Potassium Chloride (Klor-Con) 40 meq 1X ONCE PO Last administered on 11:45; Start 06/04/16 at 10:30; Stop 06/04/16 at 10:35; Status DC Acetaminophen/ Hydrocodone Bitart (Lortab 5/325) 1 tab PRN Q4HRS PRN PO MODERATE PAIN Last administered on 06/08/16 16:17; Start 06/04/16 at 22:00 Metolazone (Zaroxolyn) 5 mg DAILY PO Last administered on 06/11/16 13:11; Start 06/05/16 at 16:00 Info (Anti-Coagulation Monitoring By Pharmacy) 1 each PRN DAILY PRN MC SEE COMMENTS Last administered on 06/12/16 09:00; Start 06/06/16 at 08:00 Regadenoson (Lexiscan) 0.4 mg 1X ONCE IV Last administered on 06/06/16 08:33 ; Start 06/06/16 at 08:15; Stop 06/06/16 at 08:16; Status DC Albuterol/ Ipratropium (Duoneb) 3 ml PRN Q4HRS PRN NEB SHORTNESS OF BREATH Last administered on 1/25/17at 11:16; Start 06/06/16 at 10:45 Apixaban (Eliquis) 5 mg BID PO Last administered on 06/07/16 21:47; Start at 09:00; Stop 06/08/16 at 10:50; Status DC Midazolam HCl (Versed) 5 mg STK-MED ONCE .ROUTE ; Start 06/06/16 at 13:53; Stop 06/06/16 at 13:54; Status DC Fentanyl Citrate 250 mcg 250 mcg STK-MED ONCE .ROUTE ; Start 06/06/16 at 13:53; Stop 06/06/16 at 13:54; Status DC Dobutamine HCl/ Dextrose 250 ml @ 0 mls/hr CONT PRN IV SEE I/O RECORD Last administered on 06/07/16 21:50; Start 06/06/16 at 16:30; Stop 06/08/16 at 14:15 ; Status DC Potassium Chloride (Klor-Con) 40 meq 1X ONCE PO Last administered on 15:33; Start 06/07/16 at 12:45; Stop 06/07/16 at 12:48; Status DC Hydralazine HCl (Apresoline) 10 mg PRN Q4HRS PRN IVP ELEVATED BP, SEE COMMENTS ; Start 06/07/16 at 13:00 Lidocaine/Sodium Bicarbonate (Buffered Lidocaine 1%) 20 ml STK-MED ONCE IJ ; Start 06/07/16 at 13:20; Stop 06/07/16 at 13:21; Status DC Heparin Sodium (Porcine) 35269 unit 10,000 unit STK-MED ONCE .ROUTE ; Start at 13:20; Stop 06/07/16 at 13:21; Status DC Heparin Sodium/ Sodium Chloride 500 ml @ As Directed STK-MED ONCE .ROUTE ; Start 06/07/16 at 13:20; Stop 06/07/16 at 13:21; Status DC Lidocaine/Sodium Bicarbonate (Buffered Lidocaine 1%) 3 ml 1X ONCE IJ Last administered on 06/07/16 13:45; Start 06/07/16 at 13:45; Stop 06/07/16 at 13:46 ; Status DC Heparin Sodium/ Sodium Chloride 60 unit 1X ONCE IV Last administered on 13:45; Start 06/07/16 at 13:45; Stop 06/07/16 at 13:46; Status DC Heparin Sodium (Porcine) 2,400 unit 1X ONCE INT CAT Last administered on t 13:45; Start 06/07/16 at 13:45; Stop 06/07/16 at 13:46; Status DC Info 1 each 1 each PRN DAILY PRN MC SEE COMMENTS; Start 06/07/16 at 19:00; Status Cancel Sodium Chloride 1,000 ml @ 1,000 mls/hr Q1H PRN IV hypotension; Start 06/08/16 at 08:41; Stop 06/08/16 at 14:40; Status DC Albumin Human (Albuminar) 200 ml @ 200 mls/hr 1X PRN PRN IV Hypotension; Start 06/08/16 at 08:45; Stop 06/08/16 at 14:44; Status DC Midodrine (Proamatine) 5 mg 1X ONCE PO ; Start 06/08/16 at 08:45; Stop at 08:49; Status DC Acetaminophen (Tylenol) 500 mg 1X PRN PRN PO MILD PAIN / TEMP; Start 06/08/16 at 08:45; Stop 06/09/16 at 08:44; Status DC Diphenhydramine HCl (Benadryl) 25 mg 1X PRN PRN IV ITCHING; Start 06/08/16 at 08:45; Stop 06/09/16 at 08:44; Status DC Diphenhydramine HCl (Benadryl) 25 mg 1X PRN PRN IV ITCHING; Start 06/08/16 at 08:45; Stop 06/09/16 at 08:44; Status DC Labetalol HCl (Normodyne) 10 mg PRN Q1HR PRN IVP SBP > 180; Start 06/08/16 at 08:45; Stop 06/09/16 at 08:44; Status DC Clonidine HCl (Catapres) 0.1 mg 1X PRN PRN PO SBP > 180; Start 06/08/16 at 08: 45; Stop 06/09/16 at 08:44; Status DC Info (PHARMACY MONITORING -- do not chart) 1 each PRN DAILY PRN MC SEE COMMENTS ; Start 06/08/16 at 08:45 Darbepoetin Jose (Aranesp) 60 mcg WEEKLYHS SQ Last administered on 06/08/16 20 :46; Start 06/08/16 at 21:00 Furosemide (Lasix) 40 mg DAILY PO Last administered on 06/11/16 13:10; Start 06/08/16 at 11:00 Apixaban (Eliquis) 5 mg BID PO Last administered on 06/11/16 13:11; Start at 21:00 Phytonadione (Mephyton) 2.5 mg 1X ONCE PO Last administered on 06/08/16 14:57 ; Start 06/08/16 at 14:00; Stop 06/08/16 at 14:01; Status DC Apixaban 5 mg 5 mg BID PO ; Start 06/08/16 at 21:00; Status UNV Sodium Chloride 1,000 ml @ 1,000 mls/hr Q1H PRN IV hypotension; Start 06/09/16 at 11:31; Stop 06/09/16 at 17:30; Status DC Albumin Human 200 ml @ 200 mls/hr 1X PRN PRN IV Hypotension; Start 06/09/16 at 11:45; Stop 06/09/16 at 17:44; Status DC Sodium Chloride (Iv Sodium Chloride 0.9% 1000ml Bag) 1,000 ml @ 400 mls/hr Q2H30M PRN IV PATENCY; Start 06/09/16 at 11:31; Stop 06/09/16 at 23:30; Status DC Info (PHARMACY MONITORING -- do not chart) 1 each PRN DAILY PRN MC SEE COMMENTS ; Start 06/09/16 at 11:45; Status UNV Info (PHARMACY MONITORING -- do not chart) 1 each PRN DAILY PRN MC SEE COMMENTS ; Start 06/09/16 at 11:45; Status UNV Ondansetron HCl (Zofran) 4 mg PRN Q6HRS PRN IV NAUSEA/VOMITING; Start 06/10/16 at 14:15 Acetaminophen 500 mg 500 mg PRN Q6HRS PRN PO MILD PAIN / TEMP; Start 06/10/16 at 14:15 Sodium Chloride 1,000 ml @ 1,000 mls/hr Q1H PRN IV hypotension; Start 06/11/16 at 08:00; Stop 06/11/16 at 13:59; Status DC Sodium Chloride (Iv Sodium Chloride 0.9% 1000ml Bag) 1,000 ml @ 400 mls/hr Q2H30M PRN IV PATENCY; Start 06/11/16 at 08:00; Stop 06/11/16 at 19:59; Status DC Info (PHARMACY MONITORING -- do not chart) 1 each PRN DAILY PRN MC SEE COMMENTS ; Start 06/11/16 at 08:45; Status UNV Insulin Detemir (Levemir) 18 units QHS SQ Last administered on 06/11/16 20:39 ; Start 06/11/16 at 21:00; Stop 06/12/16 at 08:45; Status DC Hydralazine HCl (Apresoline) 50 mg TID PO Last administered on 06/11/16 20:35 ; Start 06/11/16 at 14:00 Losartan Potassium 50 mg 50 mg DAILY PO ; Start 06/11/16 at 12:00 Magnesium Sulfate/ Dextrose (Magnesium Sulfate PREMIX 2GM) 50 ml @ 25 mls/hr PRN DAILY PRN IV for Mag < 1.7 on am labs; Start 06/11/16 at 12:00 Potassium Chloride (Klor-Con) 40 meq 1X ONCE PO ; Start 06/12/16 at 07:00; Stop 06/12/16 at 07:01; Status DC Potassium Chloride (Klor-Con) 40 meq 1X ONCE PO Last administered on 05:13; Start 06/12/16 at 05:00; Stop 06/12/16 at 05:01; Status DC Insulin Detemir (Levemir) 10 units QHS SQ ; Start 06/12/16 at 21:00 Heparin Sodium (Porcine) 10,000 unit STK-MED ONCE .ROUTE ; Start 06/12/16 at 09: 02; Stop 06/12/16 at 09:03; Status DC Lidocaine/ Epinephrine 20 ml 20 ml STK-MED ONCE .ROUTE ; Start 06/12/16 at 09:02 ; Stop 06/12/16 at 09:03; Status DC Heparin Sodium/ Sodium Chloride 500 ml @ As Directed STK-MED ONCE .ROUTE ; Start 06/12/16 at 09:02; Stop 06/12/16 at 09:03; Status DC Active Scripts Active Reported Furosemide 40 Mg Tablet 40 Mg PO BID Hydralazine Hcl 25 Mg Tablet 75 Mg PO TID Pradaxa (Dabigatran Etexilate Mesylate) 75 Mg Capsule 75 Mg PO BID Metolazone 2.5 Mg Tablet 2.5 Mg PO THREE TIMES A WEEK Allopurinol 100 Mg Tablet 200 Mg PO DAILY Potassium Chloride 20 Meq Tablet.er 20 Meq PO DAILY Toprol Xl (Metoprolol Succinate) 50 Mg Tab.er.24h 50 Mg PO DAILY Levemir (Insulin Detemir) 100 Unit/1 Ml Vial 25 Unit SQ QHS Losartan Potassium 100 Mg Tablet 100 Mg PO DAILY Pravastatin Sodium 20 Mg Tablet 20 Mg PO DAILY Torsemide 100 Mg Tablet 100 Mg PO DAILY Novolog (Insulin Aspart) 100 Unit/1 Ml Cartridge 100 Unit SQ PRN Diltiazem 24HR Er (Diltiazem Hcl) 120 Mg Cap.er.24h 120 Mg PO DAILY Vitals/I & O Vital Sign - Last 24 Hours 06/11/16 06/11/16 06/11/16 06/11/16 13:10 13:41 14:28 14:36 Temp 97.7 97.7 97.7 97.7 Pulse 69 68 68 Resp 20 20 B/P 119/74 116/68 116/68 Pulse Ox 95 95 O2 Delivery Room Air Room Air Room Air 06/11/16 06/11/16 06/11/16 06/11/16 19:00 20:00 20:35 23:00 Temp 97.8 98.8 97.8 98.8 Pulse 127 127 66 Resp 18 18 B/P 114/65 114/65 124/60 Pulse Ox 98 99 O2 Delivery Room Air Room Air Room Air 06/12/16 06/12/16 06/12/16 03:00 07:29 07:47 Temp 98.9 97.4 98.9 97.4 Pulse 59 81 Resp 20 18 B/P 131/79 119/59 Pulse Ox 99 95 95 O2 Delivery Room Air Room Air Room Air Intake and Output 06/11/16 06/11/16 06/12/16 15:00 23:00 07:00 Intake Total 750 ml 100 ml Balance 750 ml 100 ml AGUSTIN LENNON MD Jun 12, 2016 09:06
[2016-06-12] MEDS ORDERED: FENTANYL PF 250 MCG/5 ML VIAL. ONE (09:30)
[2016-06-12] MEDS ORDERED: MIDAZOLAM HCL/PF 5 MG/5 ML VIAL ONE (09:30)
[2016-06-12] MEDS ORDERED: CEFAZOLIN 1GM IVPB FOR OMNI 50 ML IV ONE (09:31)
[2016-06-12] MEDS ORDERED: MIDAZOLAM HCL/PF 5 MG/5 ML VIAL IV ONE (09:45)
[2016-06-12] MEDS ORDERED: HEPARIN for IV BOLUS 10,000 UNIT/10 ML VIAL. IART ONE (09:45)
[2016-06-12] MEDS ORDERED: FENTANYL PF 250 MCG/5 ML VIAL. IV ONE (09:45)
[2016-06-12] MEDS ORDERED: LIDOCAINE 1%/EPI 1:100,000 20 ML VIAL. IJ ONE (09:45)
--- NOTE | 2016-06-12 10:03 | PDOC3 ---
Discharge Summary Visit Information Date of Admission: Jun 02, 2016 Date of Discharge: Jun 12, 2016 Admitting Diagnosis Comment: CHF, acute renal failure on CKD 4/5, ESRD needing to INITIATE HD THIS ADMISSION -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 -Renal cell carcinoma -Hypokalemia -Hypertension and Hyperlipidemia -atrial fibrillation Diabetes type 2 -CKD 4/5 progressing to ESRD -Gout -Arthritis -Insomnia Final Diagnosis Problems Medical Problems: (1) ESRD (end stage renal disease) Status: Acute Brief Hospital Course Allergies Allergies Coded Allergies Type Severity Reaction Last Updated Verified No Known Medication Allergies Allergy Unknown 06/07/16 Yes lisinopril Adverse Reaction Intermediate Cough 01/06/16 Yes Vital Signs Vital Signs Date Time Temp Pulse Resp B/P Pulse Ox O2 Delivery O2 Flow Rate FiO2 06/12/16 08:00 Room Air 06/12/16 07:47 95 06/12/16 07:29 97.4 81 18 119/59 97.4 Lab Results Laboratory Tests Test 06/10/16 11:09 06/10/16 14:10 06/10/16 16:41 06/10/16 20:20 Glucose (Fingerstick) 130mg/dL (70-99) 135mg/dL (70-99) 132mg/dL (70-99) Prothrombin Time 19.0SEC (11.7-14.0) Prothromb Time International Ratio 1.7 (0.8-1.1) Test 06/11/16 07:49 06/11/16 17:01 06/11/16 20:33 06/12/16 03:10 Glucose (Fingerstick) 71mg/dL (70-99) 160mg/dL (70-99) 162mg/dL (70-99) Hemoglobin 10.7g/dL (13.0-17.5) Sodium Level 141mmol/L (136-145) Potassium Level 2.9mmol/L (3.5-5.1) Chloride Level 103mmol/L (98-107) Carbon Dioxide Level 28mmol/L (21-32) Anion Gap 10 (6-14) Blood Urea Nitrogen 31mg/dL (8-26) Creatinine 2.4mg/dL (0.7-1.3) Estimated GFR (Cockcroft-Gault) 27.0 Glucose Level 107mg/dL (70-99) Calcium Level 8.0mg/dL (8.5-10.1) Phosphorus Level 3.4mg/dL (2.6-4.7) Magnesium Level 1.8mg/dL (1.8-2.4) Albumin 2.8g/dL (3.4-5.0) Test 06/12/16 07:30 Glucose (Fingerstick) 86mg/dL (70-99) Laboratory Tests Test 06/11/16 17:01 06/11/16 20:33 06/12/16 03:10 06/12/16 07:30 Glucose (Fingerstick) 160mg/dL (70-99) 162mg/dL (70-99) 86mg/dL (70-99) Hemoglobin 10.7g/dL (13.0-17.5) Sodium Level 141mmol/L (136-145) Potassium Level 2.9mmol/L (3.5-5.1) Chloride Level 103mmol/L (98-107) Carbon Dioxide Level 28mmol/L (21-32) Anion Gap 10 (6-14) Blood Urea Nitrogen 31mg/dL (8-26) Creatinine 2.4mg/dL (0.7-1.3) Estimated GFR (Cockcroft-Gault) 27.0 Glucose Level 107mg/dL (70-99) Calcium Level 8.0mg/dL (8.5-10.1) Phosphorus Level 3.4mg/dL (2.6-4.7) Magnesium Level 1.8mg/dL (1.8-2.4) Albumin 2.8g/dL (3.4-5.0) Brief Hospital Course Mr. Jones is a 70 old male admitted for SOA, pulm edema with CKD [id number] on arrival. COurse remarkable for needing to initiate HD while here. HD has been set up MWF. HAs a tunneled HD cath placed on day of dc. On lasix at home and is to cont at home. BP was on low side since initiating HD< hydralazine needed to be dec form 75 tID to 50 TID. Low BS likewise, home regimen needing to dec levemir to 10units SQ qhs,. REst of meds to cont, lasix 40 PO with Kcl, pradaxa, allopurinol and statin MEd changes dw RN THiomas Pt seen and examined [place] RN and case mx MAR done Dc 35 mins> 50% educating meds etc COnults: renal, CArds Proc; HD, tunneled HD cath Dispo: home Discharge Information Condition at Discharge: Improved, Stable Disposition/Orders: D/C to Home Scheduled Allopurinol (Allopurinol) 200 MG PO DAILY (Reported) Dabigatran Etexilate Mesylate (Pradaxa) 75 MG PO BID (Reported) Diltiazem Hcl (Diltiazem 24HR Er) 120 MG PO DAILY (Reported) Furosemide (Furosemide) 40 MG PO BID (Reported) Hydralazine Hcl (Hydralazine Hcl) 75 MG PO TID (Reported) Insulin Aspart (Novolog) 100 UNIT SQ prn (Reported) Insulin Detemir (Levemir) 25 UNIT SQ QHS (Reported) Losartan Potassium (Losartan Potassium) 100 MG PO DAILY (Reported) Metolazone (Metolazone) 2.5 MG PO three times a week (Reported) Metoprolol Succinate (Toprol Xl) 50 MG PO DAILY (Reported) Potassium Chloride (Potassium Chloride) 20 MEQ PO DAILY (Reported) Pravastatin Sodium (Pravastatin Sodium) 20 MG PO DAILY (Reported) Torsemide (Torsemide) 100 MG PO DAILY (Reported) VICTOR M PINA MD Jun 12, 2016 10:03
--- NOTE | 2016-06-12 10:10 | PDOC ---
MODERATE SEDATION ASSESSMENT RISKS/ALTERNATIVES Risks/Alternatives Risks and alternatives of this type of sedation and procedure discussed with: RISK/ALTERNATIVES: Patient H & P ON CHART H & P H & P on chart and reviewed for co-morbid conditions and appropriate labs. H&P ON CHART: Yes STATUS PREG STATUS ASSESSED: N/A MEDS/ALLERGIES REVIEWED Meds/Allergies Reviewed Medications and Allergies including time and route of recently administered narcotics and sedatives. MEDS/ALLERGIES REVIEWED: Yes ASA RATING ASA RATING: III AIRWAY ASSESSMENT Airway Assessment Airway patency, oral function limitations, presence of caps, crowns, dentures, partials, and ability to extend neck assessed. AIRWAY ASSESSMENT: Yes MALLAMPATI SCORE MALLAMPATI SCORE: III PRE-SEDATION ASSESSMENT PRE-SEDATION ASSESSMENT: Yes MISHEL GARCIA MD Jun 12, 2016 10:10
--- NOTE | 2016-06-12 10:13 | PDOC ---
Exam Product Merchandiser Product Merchandiser Annie Tan Room Supervisor Tan Room Supervisor Angeles Gibbs Pre-Procedure Diagnosis Pre-Procedure Diagnosis New ESRD. Needs ongoing HD. Conversion from temp to tunneled HDC requested. Post-Procedure Diagnosis Post-Procedure Diagnosis Same Procedure Performed Procedure Performed Removal rt IJ temp HDC Insert rt IJ tunneled HDC Type of Anesthesia Type of Anesthesia Local + Mod sedation Estimated Blood Loss EBL: Minimal Specimens Specimans 14F 20cm rt IJ Schon temp HDC removed and discarded Drain/Tubes Drains/Tubes 15.5F 24cm rt IJ DuraMax tunneled HDC inserted Condition of Patient Condition of Patient Stable. No apparent complication. Disposition Disposition From IR to 206. F/u with Renal. OK to use new tunneled HDC. Full report to follow. MISHEL GARCIA MD Jun 12, 2016 10:13
[2016-06-12] MEDS: METOPROLOL SUCC 24HR ER 50 MG TAB.ER.24H. PO SCH (12:22)
[2016-06-12] MEDS: FUROSEMIDE 40 MG TABLET PO SCH (12:22)
[2016-06-12] MEDS: ALLOPURINOL 100 MG TABLET. PO SCH (12:23)
[2016-06-12] MEDS: HYDRALAZINE 50 MG TABLET PO SCH ×2 (12:23→14:00)
[2016-06-12] MEDS: APIXABAN 5 MG TABLET. PO SCH (12:23)
[2016-06-12] MEDS: LOSARTAN POTASSIUM 50 MG TABLET. PO SCH (12:23)
[2016-06-12] MEDS: METOLAZONE 2.5 MG TABLET PO SCH (12:24)
--- NOTE | 2016-06-12 14:21 | PDOC ---
SUBJECTIVE ROS ESRD Feeling good oerall, palns for D/c ongoing CVS: no Orthopnea, no CP RESP: no SOB, no MCDANIEL GI: no Nausea, no Vomiting : no Dysuria, no Urgency OBJECTIVE Vital Signs Vital Signs Date Time Temp Pulse Resp B/P Pulse Ox O2 Delivery O2 Flow Rate FiO2 06/12/16 12:29 75 145/94 Room Air 06/12/16 10:12 20 97 2.0 06/12/16 07:29 97.4 97.4 I & 0 Intake and Output 06/12/16 07:00 Intake Total 850 ml Balance 850 ml Intake Oral 850 ml PHYSICAL EXAM Physical Exam GEN: Awake, Oriented x 2, In no distress EYES: Vision Unchanged, Conjunctiva Normal EN: No EN Drainage, Mucous Membranes moist NECK: no JVD, no JVP, Supple, no Thyromegaly CVS: S1S2, ? Murmur, No Gallop, No Rub, Tr Edema RESP: no Rales, no Rhonchi,no Acc. Muscle Use GI: BS + ve, NO Bruit, Non Tender, Non Distended : no CVA tenderness, no Suprapubic Tenderness DIAGNOSIS/ASSESSMENT Assessment & Plan ESRD: Current fluid and E-lyte status does not necessitate emergent need for dialysis. Will re-evaluate for dialysis in the am and continue on MWF schedule. 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 See orders for changes. Problems: COMMENT/RELEVANT DATA Meds Current Medications Medications (Trade) Dose Ordered Sig/Esperanza Start Time Stop Time Status Last Admin Dose Admin Acetaminophen (Tylenol) 500 mg 1X PRN PRN 06/08/16 08:45 06/09/16 08:44 DC Acetaminophen 500 mg 500 mg PRN Q6HRS PRN 06/10/16 14:15 Acetaminophen/ Hydrocodone Bitart (Lortab 5/325) 1 tab PRN Q4HRS PRN 06/04/16 22:00 06/08/16 16:17 1 TAB Albumin Human (Albuminar) 200 ml @ 200 mls/hr 1X PRN PRN 06/09/16 11:45 06/09/16 17:44 DC Albuterol/ Ipratropium (Duoneb) 3 ml PRN Q4HRS PRN 06/06/16 10:45 06/06/16 11:16 3 ML Allopurinol (Zyloprim) 200 mg DAILY 06/03/16 15:00 06/12/16 12:23 200 MG Apixaban (Eliquis) 5 mg BID 06/08/16 21:00 06/12/16 12:23 5 MG Apixaban 5 mg 5 mg BID 06/08/16 21:00 UNV Atorvastatin Calcium (Lipitor) 5 mg QHS 06/03/16 21:00 06/11/16 20:35 5 MG Cefazolin Sodium (Ancef 1gm Ivpb For Omni) 50 ml @ As Directed STK-MED ONCE 06/12/16 09:31 06/12/16 09:32 DC Clonidine HCl (Catapres) 0.1 mg 1X PRN PRN 06/08/16 08:45 06/09/16 08:44 DC Dabigatran (Pradaxa) 75 mg BID 06/03/16 15:00 06/06/16 21:01 DC 06/07/16 00:07 75 MG Darbepoetin Jose (Aranesp) 60 mcg WEEKLYHS 06/08/16 21:00 06/08/16 20:46 60 MCG Dextrose 12.5 gm PRN Q15MIN PRN 06/03/16 16:00 Diltiazem HCl (Cardizem 24hr Cd) 120 mg DAILY 06/03/16 15:00 06/05/16 15:46 DC 06/05/16 08:42 120 MG Diphenhydramine HCl (Benadryl) 25 mg 1X PRN PRN 06/08/16 08:45 06/09/16 08:44 DC Dobutamine HCl/ Dextrose 250 ml @ 0 mls/hr CONT PRN 06/06/16 16:30 06/08/16 14:15 DC 06/07/16 21:50 19.7 MLS/HR Fentanyl Citrate (Fentanyl 5ml Vial) 250 mcg 1X ONCE 06/12/16 09:45 06/12/16 09:59 DC 06/12/16 10:09 50 MCG Fentanyl Citrate 250 mcg 250 mcg STK-MED ONCE 06/12/16 09:30 06/12/16 09:31 DC Furosemide (Lasix) 40 mg DAILY 06/08/16 11:00 06/12/16 12:22 40 MG Heparin Sodium (Porcine) 2,500 unit 1X ONCE 06/12/16 09:45 06/12/16 09:59 DC 06/12/16 10:10 4,000 UNIT Heparin Sodium/ Sodium Chloride 1,000 unit 1X ONCE 06/12/16 09:45 06/12/16 09:59 DC 06/12/16 10:09 1,000 UNIT Hydralazine HCl (Apresoline) 50 mg TID 06/11/16 14:00 06/12/16 12:23 50 MG Info (Anti-Coagulation Monitoring By Pharmacy) 1 each PRN DAILY PRN 06/06/16 08:00 06/12/16 09:00 1 EACH Info (PHARMACY MONITORING -- do not chart) 1 each PRN DAILY PRN 06/11/16 08:45 UNV Insulin Aspart (Novolog) 0-5 UNITS TIDWMEALS 06/03/16 17:00 06/05/16 18:02 2 UNITS Insulin Detemir (Levemir) 10 units QHS 06/12/16 21:00 Labetalol HCl (Normodyne) 10 mg PRN Q1HR PRN 06/08/16 08:45 06/09/16 08:44 DC Lidocaine/ Epinephrine (Xylocaine 1%-Epi 1:100,000) 20 ml 1X ONCE 06/12/16 09:45 06/12/16 09:59 DC 06/12/16 10:08 20 ML Lidocaine/Sodium Bicarbonate (Buffered Lidocaine 1%) 3 ml 1X ONCE 06/07/16 13:45 06/07/16 13:46 DC 06/07/16 13:45 3 ML Losartan Potassium 50 mg 50 mg DAILY 06/11/16 12:00 06/12/16 12:23 50 MG Losartan Potassium (Cozaar) 100 mg DAILY 06/03/16 15:00 06/11/16 11:29 DC 06/10/16 08:27 100 MG Magnesium Sulfate/ Dextrose (Magnesium Sulfate PREMIX 2GM) 50 ml @ 25 mls/hr PRN DAILY PRN 06/11/16 12:00 Metolazone (Zaroxolyn) 5 mg DAILY 06/05/16 16:00 06/12/16 12:24 5 MG Metoprolol Succinate (Toprol Xl) 50 mg DAILY 06/03/16 15:00 06/12/16 12:22 50 MG Midazolam HCl (Versed) 5 mg 1X ONCE 06/12/16 09:45 06/12/16 09:59 DC 06/12/16 10:09 1 MG Midazolam HCl 5 mg 5 mg STK-MED ONCE 06/06/16 13:53 06/06/16 13:54 DC Midodrine (Proamatine) 5 mg 1X ONCE 06/08/16 08:45 06/08/16 08:49 DC Non-Formulary Medication 100 unit prn 06/03/16 14:15 UNV Ondansetron HCl (Zofran) 4 mg PRN Q6HRS PRN 06/10/16 14:15 Phytonadione (Mephyton) 2.5 mg 1X ONCE 06/08/16 14:00 06/08/16 14:01 DC 06/08/16 14:57 2.5 MG Potassium Chloride (Klor-Con) 40 meq 1X ONCE 06/12/16 05:00 06/12/16 05:01 DC 06/12/16 05:13 40 MEQ Regadenoson (Lexiscan) 0.4 mg 1X ONCE 06/06/16 08:15 06/06/16 08:16 DC 06/06/16 08:33 0.4 MG Sodium Chloride (Iv Sodium Chloride 0.9% 1000ml Bag) 1,000 ml @ 400 mls/hr Q2H30M PRN 06/11/16 08:00 06/11/16 19:59 DC Torsemide (Demadex) 100 mg DAILY 06/03/16 15:00 06/03/16 16:42 DC Lab Laboratory Tests Test 06/11/16 17:01 06/11/16 20:33 06/12/16 03:10 06/12/16 07:30 Glucose (Fingerstick) 160mg/dL (70-99) 162mg/dL (70-99) 86mg/dL (70-99) Hemoglobin 10.7g/dL (13.0-17.5) Sodium Level 141mmol/L (136-145) Potassium Level 2.9mmol/L (3.5-5.1) Chloride Level 103mmol/L (98-107) Carbon Dioxide Level 28mmol/L (21-32) Anion Gap 10 (6-14) Blood Urea Nitrogen 31mg/dL (8-26) Creatinine 2.4mg/dL (0.7-1.3) Estimated GFR (Cockcroft-Gault) 27.0 Glucose Level 107mg/dL (70-99) Calcium Level 8.0mg/dL (8.5-10.1) Phosphorus Level 3.4mg/dL (2.6-4.7) Magnesium Level 1.8mg/dL (1.8-2.4) Albumin 2.8g/dL (3.4-5.0) Test 06/12/16 11:05 Glucose (Fingerstick) 76mg/dL (70-99) CASSY SIERRA MD Jun 12, 2016 14:20
[2016-06-12] MEDS ORDERED: INSULIN DETEMIR 300 UNITS/3 ML INSULN.PEN. SQ SCH (21:00)
--- NOTE | 2016-06-13 06:24 | RAD ---
Removal of right IJ temporary hemodialysis catheter Ultrasound and fluoro guided placement of right IJ tunneled hemodialysis catheter Indication: End-stage renal disease. Ongoing hemodialysis required. Conversion from temporary to tunneled hemodialysis catheter requested by nephrology. Fluoro time: 1.0 minute Kerma-Area Product: 8 Gycm2 Moderate sedation: 23 minutes moderate sedation was provided utilizing a total of 1 mg Versed and 50 mcg fentanyl, IV. The patient was appropriately monitored by a qualified independent observer throughout the time of moderate sedation. Antibiotic: A single dose of Ancef was administered within 1 hour of the procedure start time. Sterility: All elements of maximal sterile barrier technique, including the use of a cap, mask, sterile gown, sterile gloves, large sterile sheet, appropriate hand hygiene, and 2% chlorhexidine for cutaneous antisepsis (or acceptable alternative antiseptic per current guidelines) were utilized.: Procedure: Informed consent was obtained from the patient. He was placed supine on the angiography table. Preliminary ultrasound examination of right neck revealed continued wide patency of right internal jugular vein, which was documented with a hard copy ultrasound image. The indwelling right IJ 14 [place] Island[place] 20 cm Schon temporary hemodialysis catheter was then easily removed utilizing gentle traction. Hemostasis was achieved with manual pressure over right internal jugular vein. Right neck and upper chest were then prepped and draped in the usual sterile fashion, utilizing all elements of maximal sterile barrier technique, as described above. Moderate sedation was provided with IV Versed and Fentanyl. 1 gram Ancef was given IV, prophylactically. Using aseptic technique and local anesthesia, a small skin incision was made lateral to right internal jugular vein, just above clavicle. Using aseptic technique, local anesthesia, and direct ultrasound guidance, a micropuncture needle was successfully introduced into right internal jugular vein. The micropuncture needle was then exchanged over a microguidewire for a micropuncture sheath, through which an Amplatz wire was advanced into IVC, under fluoroscopic control. A second small skin incision was then made along upper anterior aspect of right chest. A subcutaneous tunnel was then fashioned between the right chest and supraclavicular incisions. A 15.5 F 24 cm Dura Max dialysis catheter was pulled through the subcutaneous tunnel from inferior to superior, utilizing the tunneling device provided. The right IJ venostomy tract was then sequentially dilated and the 15.5 [place]er dialysis catheter was easily advanced centrally through a 16 [place] Islander peel-away sheath, and was positioned with its tip at the level of upper right atrium utilizing fluoroscopic guidance. This catheter was demonstrated to flush and aspirate normally, was packed, and was secured at the right chest exit site utilizing 2-0 Prolene and sterile dressing. The small supraclavicular incision was closed with 4-0 Vicryl, Steri-Strips, and sterile dressing. Patient tolerated the procedure well without apparent complication. Satisfactory position of the dialysis catheter was confirmed with a single fluoroscopic spot image. Impression: Successful, uneventful ultrasound and fluoro guided placement of right IJ 15.5 F 24 cm Dura Max tunneled hemodialysis catheter, following removal of right IJ 14 [place] Island[place] 20 cm Schon temporary hemodialysis catheter, as described.
== END 2016-06-12 16:30 | disposition home or self-care (01) | DRG 673 ==
LOC: 2 NORTH 20:50
PROVIDERS: ADMIT Internal Medicine; ATTEND Internal Medicine
PROC: 02H633Z Insertion of Infusion Device into Right Atrium, Percutaneous Approach (ICD-10-PCS; principal; 2016-06-07)
PROC: B2141ZZ Fluoroscopy of Right Heart using Low Osmolar Contrast (ICD-10-PCS; 2016-06-07)
PROC: B244ZZZ Ultrasonography of Right Heart (ICD-10-PCS; 2016-06-07)
PROC: 02PA33Z Removal of Infusion Device from Heart, Percutaneous Approach (ICD-10-PCS; 2016-06-12)
PROC: 0JH63XZ Insertion of Tunneled Vascular Access Device into Chest Subcutaneous Tissue and Fascia, Percutaneous Approach (ICD-10-PCS; 2016-06-12)
PROC: 5A1D00Z (ICD-10-PCS; 2016-06-12)
PROC: 02H633Z Insertion of Infusion Device into Right Atrium, Percutaneous Approach (ICD-10-PCS; 2016-06-12)
PROC: B2141ZZ Fluoroscopy of Right Heart using Low Osmolar Contrast (ICD-10-PCS; 2016-06-12)
DX: N17.9 Acute kidney failure, unspecified (principal); I50.43 Acute on chronic combined systolic (congestive) and diastolic (congestive) heart failure; I13.2 Hypertensive heart and chronic kidney disease with heart failure and with stage 5 chronic kidney disease, or end stage renal disease; C64.9 Malignant neoplasm of unspecified kidney, except renal pelvis; N18.6 End stage renal disease; E11.21 Type 2 diabetes mellitus with diabetic nephropathy; E11.22 Type 2 diabetes mellitus with diabetic chronic kidney disease; D63.1 Anemia in chronic kidney disease; E78.5 Hyperlipidemia, unspecified; E87.6 Hypokalemia; G47.00 Insomnia, unspecified; G47.33 Obstructive sleep apnea (adult) (pediatric); I25.10 Atherosclerotic heart disease of native coronary artery without angina pectoris; I25.5 Ischemic cardiomyopathy; I48.2 Chronic atrial fibrillation; M10.9 Gout, unspecified; M19.90 Unspecified osteoarthritis, unspecified site; Z82.49 Family history of ischemic heart disease and other diseases of the circulatory system; Z83.3 Family history of diabetes mellitus; Z86.73 Personal history of transient ischemic attack (TIA), and cerebral infarction without residual deficits; Z79.899 Other long term (current) drug therapy; Z79.4 Long term (current) use of insulin
CPT/HCPCS: 36415; 36556; 36558; 71010; 71020; 76937; 77001; 78452; 80048; 80053; 80069; 80076; 82575; 82947; 83735; 83880; 84100; 84132; 84156; 84484; 85018; 85027; 85610; 86704; 86706; 87340; 87341; 93005; 93017; 93306; 94250; 94640; 96374; 96376; A9500; C1750; C1769; C1892; J0881; J1250; J1815; J1940; J2250; J2785; J3010; J3490; J7620

== ENCOUNTER 2016-08-06 06:00 | Day surgery (SDC) | payer MEDICARE, BC ==
[~2016-08-06] VITALS: Ht 182.9 cm; Wt 111.1 kg
[~2016-08-06 06:00] MED LIST changes: +APIX5TAB PO; +CEFAZOLIN 2GM PREMIX 50 ML IV ONE; +CEFAZOLIN SODIUM 1 GM in IV NORMAL SALINE 500ML BAG 500 ML IRR ONE; +DABI75CA3 PO; +FURO40TA4 PO; +HEPARIN S0DIUM 5,000 UNIT in IV NORMAL SALINE 500ML BAG 500 ML IRR ONE; +HYDR-2868 PO; +SACU1TAB7 PO
[2016-08-06] MEDS ORDERED: INSU100C4 SQ (06:36)
[2016-08-06] MEDS ORDERED: SURGICEL FIBRILLAR 1X2 EACH. ONE (06:42)
[2016-08-06] MEDS ORDERED: THROMBIN 20,000 UNIT SPRAY.SYRN KIT TP ONE (06:42)
[2016-08-06] MEDS ORDERED: PROTAMINE 50 MG/5 ML VIAL. IV ONE (06:42)
[2016-08-06] MEDS ORDERED: POVIDONE-IODINE 10% TOPICAL OINTMENT 28GM TUBE. TP ONE (06:42)
[2016-08-06] MEDS ORDERED: PAPAVERINE 60 MG/2 ML VIAL FOR OR ONLY. ONE (06:42)
[2016-08-06] MEDS ORDERED: LIDOCAINE 1% 20 ML VIAL. ONE (06:42)
[2016-08-06] MEDS ORDERED: FENTANYL PF 100 MCG/2 ML VIAL. IV PRN ×4 (07:00)
[2016-08-06] MEDS ORDERED: MORPHINE SULFATE 2 MG/ML DISP.SYRIN. IV PRN ×2 (07:00)
[2016-08-06] MEDS ORDERED: PROCHLORPERAZINE 10 MG/2 ML VIAL. IV PRN ×2 (07:00)
[2016-08-06] MEDS ORDERED: IV RINGERS,LACTATED 1000ML 1,000 ML IV SCH ×2 (07:00)
[2016-08-06] MEDS ORDERED: ONDANSETRON PF 4 MG/2 ML VIAL. IV PRN ×2 (07:00)
[2016-08-06] MEDS ORDERED: HYDROMORPHONE 2 MG/ML VIAL. IV PRN ×2 (07:00)
[2016-08-06] MEDS ORDERED: LIDOCAINE 1% 1 ML SYRINGE. ID PRN ×2 (07:00)
[2016-08-06 07:09] LABS: CALCIUM 9.2 mg/dL (8.5-10.1); CREATININE 3.3 mg/dL (0.7-1.3); GFR 18.7; POTASSIUM 3.3 mmol/L (3.5-5.1)
[2016-08-06] MEDS ORDERED: FENTANYL PF 100 MCG/2 ML VIAL. ONE (07:09)
[2016-08-06] MEDS ORDERED: ONDANSETRON PF 4 MG/2 ML VIAL. ONE (07:09)
[2016-08-06] MEDS ORDERED: PROPOFOL 20 ML IV ONE (07:09)
[2016-08-06] MEDS ORDERED: LIDOCAINE 2% 100 MG/5 ML DISP.SYRIN. ONE (07:09)
[2016-08-06] MEDS ORDERED: FAMOTIDINE 20 MG/2 ML VIAL ONE (07:09)
[2016-08-06 07:16] LABS: BASO # 0.1 x10^3/uL (0.0-0.2); BASO % 1 % (0-3); EOS % 1 % (0-3); HEMATOCRIT 34.7 % (39.0-53.0); HEMOGLOBIN 10.8 g/dL (13.0-17.5); LYMPH # 1.1 x10^3/uL (1.0-4.8); LYMPH % 9 % (24-48); MEAN CORPUSCULAR HEMOGLOBIN 28 pg (25-35); MEAN CORPUSCULAR HGB CONC 31 g/dL (31-37); MEAN CORPUSCULAR VOLUME 91 fL (79-100); MONO % 6 % (0-9); NEUT % 84 % (31-73); PLATELET COUNT 238 x10^3/uL (140-400); RED BLOOD COUNT 3.81 x10^6/uL (4.30-5.70)
[2016-08-06 07:25] LABS: INR 1.3 (0.8-1.1); PROTHROMBIN TIME PATIENT 15.5 SEC (11.7-14.0)
[2016-08-06] MEDS ORDERED: PHENYLEPHRINE in 0.9% NACL PF 1 MG/10 ML DISP.SYRIN. IV ONE (07:52)
[2016-08-06] MEDS ORDERED: HEPARIN for IV BOLUS 10,000 UNIT/10 ML VIAL. ONE (07:58)
[2016-08-06] MEDS ORDERED: EPHEDRINE PF IN SALINE 50 MG/5 ML DISP.SYRIN. IV ONE (08:03)
[2016-08-06] MEDS ORDERED: SEVOFLURANE 61 TO 120 MINUTES. IH ONE (08:27)
--- NOTE | 2016-08-06 08:49 | PDOC4 ---
Operative Note Operative Note Op note dictated Dx: ESRD Op: left radiocephalic AV fistula creation LMA with local infiltration to rr in sat. cond. EVELYN ARECHIAG II, MD Aug 06, 2016 08:49
[2016-08-06] MEDS ORDERED: HYDR-971 PO ×2 (09:04→09:06)
--- NOTE | 2016-08-06 09:27 | OP ---
DATE OF SURGERY: 08/06/2016 PREOPERATIVE DIAGNOSIS: End-stage renal disease. POSTOPERATIVE DIAGNOSIS: End-stage renal disease. OPERATION PERFORMED: Left radiocephalic AV fistula creation. SURGEON: Shahbaz Guaman M.D. SPIRITUAL COUNSELOR: None. ANESTHESIA: LMA with infiltration. INDICATIONS: This is a 70-year-old gentleman who has end-stage renal disease. He is currently being dialyzed with a catheter. He had vein mapping done in the office, which revealed an adequate cephalic vein in the forearm. He is right hand dominant. The operation risks and benefits were explained. OPERATIVE FINDINGS: The patient had a moderately calcified radial artery. The cephalic vein appeared adequate at least 3 mm in diameter. Following the procedure, the patient had a nice thrill over the outflow cephalic vein. DESCRIPTION OF PROCEDURE: The left arm and forearm was prepped and draped in the usual manner. A tourniquet was placed around the forearm to distend the cephalic vein. An incision was made after infiltration with 1% lidocaine equal distance between the visible cephalic vein and the palpable radial artery. The cephalic vein was then dissected circumferentially for an adequate length. The radial artery was then dissected and likewise encircled with vessel loops proximally and distally. The patient was given 3000 units of heparin. After 3 minutes circulation, ____ clips were used to occlude the moderately calcified radial artery. An arteriotomy was made in the radial artery and then the cephalic vein was sutured end-to-side using 7-0 Prolene. Loupe magnification was used. Prior to completing the anastomosis, the radial artery was flushed first antegrade and then retrograde. There was nice distention of the cephalic vein. Prior to this, a 3 mm dilator was passed into the cephalic vein without resistance. The anastomosis was then completed and flow restored. Hemostasis was excellent. No protamine was given. The wound was then irrigated with antibiotic irrigation and closed with a running 4-0 nylon suture. Sterile dressings were applied. The patient was taken to the recovery room in satisfactory condition. All sponge and needle counts were reported as correct. SHAHBAZ GUAMAN MD DR: NAVEED/vikki JOB#: [id number] / [id number]
[2016-08-06] MEDS ORDERED: HYDROCODONE/APAP 5/325MG TABLET. PO ONE (10:00)
[2016-08-06 11:00] VITALS: BP 148/81
== END 2016-08-06 11:15 | disposition home or self-care (01) ==
LOC: SURG 06:00
PROVIDERS: ATTEND Surgery
DX: E11.22 Type 2 diabetes mellitus with diabetic chronic kidney disease (principal); I12.0 Hypertensive chronic kidney disease with stage 5 chronic kidney disease or end stage renal disease; N18.6 End stage renal disease; E78.00 Pure hypercholesterolemia, unspecified; I48.91 Unspecified atrial fibrillation; D64.9 Anemia, unspecified; Z86.73 Personal history of transient ischemic attack (TIA), and cerebral infarction without residual deficits
CPT/HCPCS: 36415; 36818; 80048; 85027; 85610; 85730; J0690; J2370; J2405; J2704; J3010; J7040; S0028; J2440

== ENCOUNTER 2016-10-04 09:42 | Day surgery (SDC) | payer MEDICARE, BC ==
[~2016-10-04] VITALS: Ht 185.4 cm; Wt 111.1 kg
[~2016-10-04 09:42] MED LIST changes: -CEFAZOLIN 2GM PREMIX 50 ML IV ONE; -CEFAZOLIN SODIUM 1 GM in IV NORMAL SALINE 500ML BAG 500 ML IRR ONE; -HEPARIN S0DIUM 5,000 UNIT in IV NORMAL SALINE 500ML BAG 500 ML IRR ONE; +HEPARIN SODIUM 5,000 UNIT in IV NORMAL SALINE 500ML BAG 500 ML IRR ONE; +HYDR-971 PO; +HYDROmorphone 2 MG/ML VIAL IV PRN; +IV RINGERS,LACTATED 1000ML 1,000 ML IV SCH; +LIDOCAINE 1% 1 ML SYRINGE. ID PRN; +MORPHINE SULFATE 2 MG/ML DISP.SYRIN. IV PRN; +ONDANSETRON PF 4 MG/2 ML VIAL. IV PRN; +PROCHLORPERAZINE 10 MG/2 ML VIAL. IV PRN; +fentaNYL PF VIAL 100 MCG/2 ML VIAL IV PRN
[2016-10-04] MEDS ORDERED: SURGICEL FIBRILLAR 1X2 EACH. ONE (10:08)
[2016-10-04] MEDS ORDERED: THROMBIN TOPICAL 20,000 UNIT SPRAY.SYRN KIT TP ONE (10:08)
[2016-10-04] MEDS ORDERED: PROTAMINE 50 MG/5 ML VIAL. IV ONE (10:08)
[2016-10-04] MEDS ORDERED: POVIDONE-IODINE 10% TOPICAL OINTMENT 28GM TUBE. TP ONE (10:08)
[2016-10-04] MEDS ORDERED: LIDOCAINE 1% 20 ML VIAL. ONE (10:08)
[2016-10-04] MEDS ORDERED: PAPAVERINE 60 MG/2 ML VIAL FOR OR ONLY. ONE (10:08)
[2016-10-04 11:19] LABS: BASO # 0.2 x10^3/uL (0.0-0.2); BASO % 2 % (0-3); EOS % 2 % (0-3); HEMATOCRIT 37.5 % (39.0-53.0); HEMOGLOBIN 12.4 g/dL (13.0-17.5); LYMPH # 2.5 x10^3/uL (1.0-4.8); LYMPH % 23 % (24-48); MEAN CORPUSCULAR HEMOGLOBIN 31 pg (25-35); MEAN CORPUSCULAR HGB CONC 33 g/dL (31-37); MEAN CORPUSCULAR VOLUME 93 fL (79-100); MONO % 8 % (0-9); NEUT % 65 % (31-73); PLATELET COUNT 210 x10^3/uL (140-400); RED BLOOD COUNT 4.04 x10^6/uL (4.30-5.70); RED CELL DISTRIBUTION WIDTH 20.4 % (11.5-14.5); WHITE BLOOD COUNT 10.8 x10^3/uL (4.0-11.0)
[2016-10-04 11:30] LABS: CALCIUM 9.7 mg/dL (8.5-10.1); CREATININE 4.1 mg/dL (0.7-1.3); GFR 14.5; POTASSIUM 3.4 mmol/L (3.5-5.1)
[2016-10-04] MEDS ORDERED: IV NORMAL SALINE 1000ML BAG 1,000 ML IV SCH (11:30)
[2016-10-04 11:31] LABS: INR 1.2 (0.8-1.1); PROTHROMBIN TIME PATIENT 14.3 SEC (11.7-14.0)
[2016-10-04] MEDS ORDERED: PROPOFOL 50 ML IV ONE (11:54)
[2016-10-04] MEDS ORDERED: KETAMINE HCL 500 MG/10 ML VIAL. ONE (11:54)
[2016-10-04] MEDS ORDERED: MIDAZOLAM HCL/PF 2 MG/2 ML VIAL. ONE (11:59)
[2016-10-04] MEDS ORDERED: DEXTROSE 50% 25 GM / 50ML DISP.SYRIN. IV ONE ×2 (12:40→12:45)
[2016-10-04] MEDS ORDERED: fentaNYL PF VIAL 100 MCG/2 ML VIAL ONE (12:48)
[2016-10-04] MEDS ORDERED: DEXAMETHASONE SOD PHOS 20 MG/5 ML VIAL. ONE (12:48)
[2016-10-04] MEDS ORDERED: ONDANSETRON PF 4 MG/2 ML VIAL. ONE (12:48)
[2016-10-04] MEDS ORDERED: LIDOCAINE 2% PF Vial for OR 5 ML VIAL. ONE (12:49)
[2016-10-04 12:54] LABS: PLT ESTIMATE ADEQUATE (ADEQUATE)
[2016-10-04 12:55] LABS: ANISOCYTOSIS MOD
[2016-10-04] MEDS ORDERED: ePHEDrine PF IN SALINE 50 MG/5 ML DISP.SYRIN IV ONE (13:10)
[2016-10-04] MEDS ORDERED: HEPARIN for IV BOLUS 10,000 UNIT/10 ML VIAL. ONE (13:33)
[2016-10-04] MEDS ORDERED: PHENYLEPHRINE in 0.9% NACL PF 1 MG/10 ML DISP.SYRIN. IV ONE (13:39)
[2016-10-04] MEDS ORDERED: SEVOFLURANE 61 TO 120 MINUTES. IH ONE (13:54)
--- NOTE | 2016-10-04 13:57 | DISCH ---
DISCHARGE INSTRUCTIONS Condition on Discharge Condition on Discharge: Stable Activity After Discharge Activity Instructions for Disc: Activity as tolerated Bathing Instructions: Shower-keep dressing dry (may remove dressing in 3 days, may shower, keep clean and dry) Diet after Discharge Diet after Discharge: Renal Dialysis Contacting the after DC Call your doctor for: Concerns you may have Follow-Up Follow up with: Dr. Guaman in 2-3 weeks CHRISTIAN MUSE APRN October 04, 2016 13:57
--- NOTE | 2016-10-04 14:20 | PDOC ---
BRIEF OPERATIVE NOTE Date: October 04, 2016 Pre-Op Diagnosis Renal failure Post-Op Diagnosis same Procedure Performed Left arm brachial cephalic fistula Surgeon Dr Guaman Blood Loss 20 Specimens Obtained none Findings thrill post procedure Complications non CHRISTIAN MUSE FOREIGN LANGUAGE INSTRUCTOR October 04, 2016 14:20
[2016-10-04] MEDS ORDERED: HYDROcodone/APAP 5/325MG 1 TAB TABLET PO ONE (15:00)
[2016-10-04 15:34] VITALS: BP 117/57
--- NOTE | 2016-10-04 19:49 | OP ---
DATE OF SURGERY: 10/04/2016 PREOPERATIVE DIAGNOSIS: End-stage renal disease requiring hemodialysis. POSTOPERATIVE DIAGNOSIS: End-stage renal disease requiring hemodialysis. OPERATION PERFORMED: Placement of a left brachiocephalic AV fistula. SURGEON: Evelyn Guaman M.D. ULTRASONIC SOLDERER: OMID Geller. ANESTHESIA: General. OPERATIVE FINDINGS: The patient had a very satisfactory cephalic vein and brachial artery. The patient had a nice palpable thrill over the outflow vein at the conclusion of the procedure. All branches they could be accessed through the incision for ligated this. DESCRIPTION OF PROCEDURE: The left arm was prepped and draped and an incision was made just below the antecubital crease. The cephalic vein was easily identified, was relatively large, measuring about 6 mm in diameter. The brachial artery likewise was soft with an excellent pulse in no calcification. The patient was given 3000 units of heparin. A small incision was made longitudinally in the brachial artery and the cephalic vein was sutured in the side using 7-0 Prolene. Loupe magnification was utilized. After completing anastomosis appropriate flushing was carried through and flow restored into the vein, distended nicely. The wound was then irrigated and closed with 3-0 Vicryl, the skin with 4-0 nylon. A sterile dressing was applied. The patient tolerated the procedure well and was taken to the recovery room in satisfactory condition. EVELYN GUAMAN MD DR: NAVEED/vikki JOB#: [id number] / [id number]
== END 2016-10-04 16:10 | disposition home or self-care (01) ==
LOC: SURG 09:42
PROVIDERS: ATTEND Surgery
DX: I13.2 Hypertensive heart and chronic kidney disease with heart failure and with stage 5 chronic kidney disease, or end stage renal disease (principal); I50.40 Unspecified combined systolic (congestive) and diastolic (congestive) heart failure; I48.91 Unspecified atrial fibrillation; E78.00 Pure hypercholesterolemia, unspecified; D64.9 Anemia, unspecified; Z98.49 Cataract extraction status, unspecified eye; Z86.69 Personal history of other diseases of the nervous system and sense organs; Z87.39 Personal history of other diseases of the musculoskeletal system and connective tissue; Z86.73 Personal history of transient ischemic attack (TIA), and cerebral infarction without residual deficits
CPT/HCPCS: 36415; 36821; 80048; 82947; 85007; 85027; 85610; 85730; J0690; J1100; J2250; J2370; J2405; J2704; J3010; J3490; J7040; J2440; J7042

== ENCOUNTER → 2016-11-15 | Outpatient (CLI) | payer MEDICARE, BC ==
[~2016-11-15] MED LIST changes: -HEPARIN SODIUM 5,000 UNIT in IV NORMAL SALINE 500ML BAG 500 ML IRR ONE; -HYDROmorphone 2 MG/ML VIAL IV PRN; -IV RINGERS,LACTATED 1000ML 1,000 ML IV SCH; -LIDOCAINE 1% 1 ML SYRINGE. ID PRN; -MORPHINE SULFATE 2 MG/ML DISP.SYRIN. IV PRN; -ONDANSETRON PF 4 MG/2 ML VIAL. IV PRN; -PROCHLORPERAZINE 10 MG/2 ML VIAL. IV PRN; -fentaNYL PF VIAL 100 MCG/2 ML VIAL IV PRN
== END | disposition home or self-care (01) ==
LOC: PMGWOUND 08:49
PROVIDERS: ATTEND Emergency Medicine Undersea and Hyperbaric Medicine
DX: E11.621 Type 2 diabetes mellitus with foot ulcer (principal); L97.511 Non-pressure chronic ulcer of other part of right foot limited to breakdown of skin; M10.9 Gout, unspecified; I48.91 Unspecified atrial fibrillation; E78.5 Hyperlipidemia, unspecified; E66.9 Obesity, unspecified; E11.22 Type 2 diabetes mellitus with diabetic chronic kidney disease; I13.2 Hypertensive heart and chronic kidney disease with heart failure and with stage 5 chronic kidney disease, or end stage renal disease; I50.40 Unspecified combined systolic (congestive) and diastolic (congestive) heart failure; E78.00 Pure hypercholesterolemia, unspecified; N18.6 End stage renal disease; Z87.891 Personal history of nicotine dependence; Z86.73 Personal history of transient ischemic attack (TIA), and cerebral infarction without residual deficits
CPT/HCPCS: 97597

== ENCOUNTER → 2016-11-20 | Outpatient (CLI) | payer MEDICARE, BC | END | disposition home or self-care (01) | LOC: PMGWOUND 08:39 | PROVIDERS: ATTEND Emergency Medicine Undersea and Hyperbaric Medicine | DX: E11.621 Type 2 diabetes mellitus with foot ulcer (principal); L97.511 Non-pressure chronic ulcer of other part of right foot limited to breakdown of skin; E78.5 Hyperlipidemia, unspecified; E66.9 Obesity, unspecified; E78.00 Pure hypercholesterolemia, unspecified; E11.22 Type 2 diabetes mellitus with diabetic chronic kidney disease; I13.2 Hypertensive heart and chronic kidney disease with heart failure and with stage 5 chronic kidney disease, or end stage renal disease; I50.40 Unspecified combined systolic (congestive) and diastolic (congestive) heart failure; N18.6 End stage renal disease; I48.91 Unspecified atrial fibrillation; Z98.49 Cataract extraction status, unspecified eye; Z87.891 Personal history of nicotine dependence; Z86.73 Personal history of transient ischemic attack (TIA), and cerebral infarction without residual deficits | CPT/HCPCS: 29445 ==

== ENCOUNTER → 2016-11-22 | Outpatient (CLI) | payer MEDICARE, BC | END | disposition home or self-care (01) | LOC: PMGWOUND 13:28 | PROVIDERS: ATTEND Emergency Medicine Undersea and Hyperbaric Medicine | DX: E11.621 Type 2 diabetes mellitus with foot ulcer (principal); L97.511 Non-pressure chronic ulcer of other part of right foot limited to breakdown of skin; E78.5 Hyperlipidemia, unspecified; E66.9 Obesity, unspecified; E78.00 Pure hypercholesterolemia, unspecified; I48.91 Unspecified atrial fibrillation; E11.22 Type 2 diabetes mellitus with diabetic chronic kidney disease; I13.0 Hypertensive heart and chronic kidney disease with heart failure and stage 1 through stage 4 chronic kidney disease, or unspecified chronic kidney disease; I50.40 Unspecified combined systolic (congestive) and diastolic (congestive) heart failure; N18.4 Chronic kidney disease, stage 4 (severe); Z68.32 Body mass index [BMI] 32.0-32.9, adult; Z87.891 Personal history of nicotine dependence; Z86.73 Personal history of transient ischemic attack (TIA), and cerebral infarction without residual deficits | CPT/HCPCS: 11042; 29445 ==

== ENCOUNTER → 2016-11-27 | Outpatient (CLI) | payer MEDICARE, BC | END | disposition home or self-care (01) | LOC: PMGWOUND 08:33 | PROVIDERS: ATTEND Emergency Medicine Undersea and Hyperbaric Medicine | DX: E11.621 Type 2 diabetes mellitus with foot ulcer (principal); L97.521 Non-pressure chronic ulcer of other part of left foot limited to breakdown of skin; M10.9 Gout, unspecified; E11.22 Type 2 diabetes mellitus with diabetic chronic kidney disease; I13.0 Hypertensive heart and chronic kidney disease with heart failure and stage 1 through stage 4 chronic kidney disease, or unspecified chronic kidney disease; N18.4 Chronic kidney disease, stage 4 (severe); I50.9 Heart failure, unspecified; E78.5 Hyperlipidemia, unspecified; E66.9 Obesity, unspecified; Z68.32 Body mass index [BMI] 32.0-32.9, adult; I48.91 Unspecified atrial fibrillation; E78.00 Pure hypercholesterolemia, unspecified; Z86.73 Personal history of transient ischemic attack (TIA), and cerebral infarction without residual deficits; Z87.891 Personal history of nicotine dependence | CPT/HCPCS: 11042 ==

== ENCOUNTER → 2016-12-06 | Outpatient (CLI) | payer MEDICARE, BC | END | disposition home or self-care (01) | LOC: PMGWOUND 10:43 | PROVIDERS: ATTEND Emergency Medicine Undersea and Hyperbaric Medicine | DX: E11.621 Type 2 diabetes mellitus with foot ulcer (principal); L97.521 Non-pressure chronic ulcer of other part of left foot limited to breakdown of skin; E11.22 Type 2 diabetes mellitus with diabetic chronic kidney disease; I13.2 Hypertensive heart and chronic kidney disease with heart failure and with stage 5 chronic kidney disease, or end stage renal disease; N18.6 End stage renal disease; I50.40 Unspecified combined systolic (congestive) and diastolic (congestive) heart failure; E66.9 Obesity, unspecified; Z68.32 Body mass index [BMI] 32.0-32.9, adult; E78.5 Hyperlipidemia, unspecified; I48.91 Unspecified atrial fibrillation; E78.00 Pure hypercholesterolemia, unspecified; Z87.891 Personal history of nicotine dependence | CPT/HCPCS: 11042 ==

== ENCOUNTER → 2016-12-13 | Outpatient (CLI) | payer MEDICARE, BC | END | disposition home or self-care (01) | LOC: PMGWOUND 08:26 | PROVIDERS: ATTEND Emergency Medicine Undersea and Hyperbaric Medicine | DX: E11.621 Type 2 diabetes mellitus with foot ulcer (principal); L97.511 Non-pressure chronic ulcer of other part of right foot limited to breakdown of skin; E11.22 Type 2 diabetes mellitus with diabetic chronic kidney disease; I13.2 Hypertensive heart and chronic kidney disease with heart failure and with stage 5 chronic kidney disease, or end stage renal disease; N18.6 End stage renal disease; I50.40 Unspecified combined systolic (congestive) and diastolic (congestive) heart failure; E78.5 Hyperlipidemia, unspecified; E66.9 Obesity, unspecified; E78.00 Pure hypercholesterolemia, unspecified; I48.91 Unspecified atrial fibrillation; Z68.33 Body mass index [BMI] 33.0-33.9, adult; Z87.891 Personal history of nicotine dependence; Z86.73 Personal history of transient ischemic attack (TIA), and cerebral infarction without residual deficits | CPT/HCPCS: 11042 ==

== ENCOUNTER → 2016-12-20 | Outpatient (CLI) | payer MEDICARE, BC | END | disposition home or self-care (01) | LOC: PMGWOUND 08:58 | PROVIDERS: ATTEND Emergency Medicine Undersea and Hyperbaric Medicine | DX: E11.621 Type 2 diabetes mellitus with foot ulcer (principal); L97.511 Non-pressure chronic ulcer of other part of right foot limited to breakdown of skin; I48.91 Unspecified atrial fibrillation; E78.5 Hyperlipidemia, unspecified; E11.22 Type 2 diabetes mellitus with diabetic chronic kidney disease; I13.2 Hypertensive heart and chronic kidney disease with heart failure and with stage 5 chronic kidney disease, or end stage renal disease; I50.9 Heart failure, unspecified; N18.6 End stage renal disease; Z99.2 Dependence on renal dialysis; E66.9 Obesity, unspecified; Z68.33 Body mass index [BMI] 33.0-33.9, adult; Z86.73 Personal history of transient ischemic attack (TIA), and cerebral infarction without residual deficits; Z87.891 Personal history of nicotine dependence | CPT/HCPCS: 11042 ==

== ENCOUNTER 2016-12-27 09:54 | Day surgery (SDC) | payer MEDICARE, BC ==
[~2016-12-27 09:54] MED LIST changes: +0.9 % SODIUM CHLORIDE 50 ML VIAL. IJ ONE; -CINA30TA2 PO; +HYDROmorphone 2 MG/ML VIAL IV PRN; +IV RINGERS,LACTATED 1000ML 1,000 ML IV SCH; +LIDOCAINE 1% 1 ML SYRINGE. ID PRN; +LIDOCAINE 1% 20 ML VIAL. ONE; +MORPHINE SULFATE 2 MG/ML DISP.SYRIN. IV PRN; +ONDANSETRON PF 4 MG/2 ML VIAL. IV PRN; +POVIDONE-IODINE 10% TOPICAL OINTMENT 28GM TUBE. TP ONE; +PROCHLORPERAZINE 10 MG/2 ML VIAL. IV PRN; -SEVE800T8 PO; +fentaNYL PF VIAL 100 MCG/2 ML VIAL IV PRN
[2016-12-27] MEDS ORDERED: ONDANSETRON PF 4 MG/2 ML VIAL. ONE (10:24)
[2016-12-27] MEDS ORDERED: PROPOFOL 20 ML IV ONE (10:24)
[2016-12-27] MEDS ORDERED: FAMOTIDINE 20 MG/2 ML VIAL ONE (10:24)
[2016-12-27] MEDS ORDERED: fentaNYL PF VIAL 100 MCG/2 ML VIAL ONE (10:26)
[2016-12-27] MEDS ORDERED: MIDAZOLAM HCL/PF 2 MG/2 ML VIAL. ONE (10:26)
[2016-12-27] MEDS ORDERED: LIDOCAINE 2% PF Vial for OR 5 ML VIAL. ONE (10:26)
[2016-12-27] MEDS ORDERED: SEVE800T8 PO (10:29)
[2016-12-27] MEDS ORDERED: CINA30TA2 PO (10:29)
--- NOTE | 2016-12-27 10:56 | DISCH ---
DISCHARGE INSTRUCTIONS Condition on Discharge Condition on Discharge: Stable Activity After Discharge Activity Instructions for Disc: Activity as tolerated Bathing Instructions: Shower-keep dressing dry (may remove dressing in 2 days, then may shower) Diet after Discharge Diet after Discharge: Renal Dialysis Wound Incision Care Wound/Incision Care: Keep wound elevated, Change dressing (may remove in 2 days ) Contacting the after DC Call your doctor for: If your condition worsens Follow-Up Follow up with: Dr. Guaman in 2-3 weeks [phone] Follow Up With: - CHRISTIAN MUSE APRN Dec 27, 2016 10:56
[2016-12-27 11:00] LABS: CALCIUM 9.3 mg/dL (8.5-10.1); CREATININE 5.2 mg/dL (0.7-1.3); POTASSIUM 4.4 mmol/L (3.5-5.1)
[2016-12-27] MEDS ORDERED: IV NORMAL SALINE 1000ML BAG 1,000 ML IV ONE (11:00)
[2016-12-27 11:03] LABS: BASO # 0.1 x10^3/uL (0.0-0.2); BASO % 1 % (0-3); EOS % 1 % (0-3); HEMATOCRIT 35.1 % (39.0-53.0); HEMOGLOBIN 12.2 g/dL (13.0-17.5); LYMPH # 1.1 x10^3/uL (1.0-4.8); LYMPH % 11 % (24-48); MEAN CORPUSCULAR HEMOGLOBIN 33 pg (25-35); MEAN CORPUSCULAR HGB CONC 35 g/dL (31-37); MEAN CORPUSCULAR VOLUME 94 fL (79-100); MONO % 9 % (0-9); NEUT % 78 % (31-73); PLATELET COUNT 160 x10^3/uL (140-400); RED BLOOD COUNT 3.73 x10^6/uL (4.30-5.70); RED CELL DISTRIBUTION WIDTH 16.1 % (11.5-14.5); WHITE BLOOD COUNT 9.9 x10^3/uL (4.0-11.0)
[2016-12-27 11:20] LABS: INR 1.3 (0.8-1.1); PROTHROMBIN TIME PATIENT 15.1 SEC (11.7-14.0)
[2016-12-27] MEDS: HEPARIN SODIUM 5,000 UNIT in IV NORMAL SALINE 500ML BAG 500 ML IRR ONE ×2 (11:26→11:34)
[2016-12-27] MEDS ORDERED: SEVOFLURANE 61 TO 120 MINUTES. IH ONE (12:09)
--- NOTE | 2016-12-27 12:24 | PDOC ---
BRIEF OPERATIVE NOTE Date: Dec 27, 2016 Pre-Op Diagnosis ESRD, left upper arm arterio-venous fistula with large side branches Post-Op Diagnosis same Procedure Performed Left upper arm arterio-venous side branch ligation x3 Surgeon Dr. Guaman Trailer Driver Christian Muse NP Anesthesia Type: General, Local Blood Loss minimal Specimens Obtained none Findings large side branches Complications none, stable to PACU CHRISTIAN MUSE APRN Dec 27, 2016 12:24
[2016-12-27] MEDS ORDERED: HYDR-971 PO ×2 (12:57→12:58)
--- NOTE | 2016-12-27 13:23 | OP ---
DATE OF SURGERY: 12/27/2016 PREOPERATIVE DIAGNOSES: Status post left brachiocephalic AV fistula with multiple side branches. POSTOPERATIVE DIAGNOSES: Status post left brachiocephalic AV fistula with multiple side branches. OPERATION PERFORMED: Left brachiocephalic side branch ligation x 4. SURGEON: Evelyn Arechiga M.D. TOLL BOOTH OPERATOR: Jacqui Burkett ANESTHESIA: General. INDICATIONS: This is a 71-year-old gentleman who has end-stage renal disease, which eventually required dialysis. He has placed a left brachiocephalic fistula approximately 6 weeks ago. He underwent ultrasound imaging, which demonstrated at least three side branches, which are diverting blood from the main cephalic vein outflow. He presents for side branch ligation. The operation risks and benefits were explained. OPERATIVE FINDINGS: The patient had four side branches, actually two of which were greater than 4 mm in diameter. These were all ligated without incident. At the end of the procedure, he had a nice palpable thrill over the cephalic vein. DESCRIPTION OF PROCEDURE: General anesthetic was administered and the left arm was prepped and draped circumferentially. Antibiotics were given preprocedure. Ultrasound was then used to map the side branches, which were marked on the skin. Small incisions were then made corresponding to the side branches. Dissection was carried down and the side branches were carefully dissected and ligated with 4-0 silk ligatures. Again, four incisions were required. The wounds were then irrigated and closed with a running 4-0 nylon sutures. Sterile dressings were applied. The patient was taken to the recovery room in satisfactory condition. EVELYN ARECHIGA MD DR: NAVEED/vikki JOB#: [id number] / [id number]
[2016-12-27 13:30] VITALS: BP 108/68
== END 2016-12-27 13:50 | disposition home or self-care (01) ==
LOC: SURG 09:54
PROVIDERS: ATTEND Surgery
DX: I13.2 Hypertensive heart and chronic kidney disease with heart failure and with stage 5 chronic kidney disease, or end stage renal disease (principal); E11.22 Type 2 diabetes mellitus with diabetic chronic kidney disease; N18.6 End stage renal disease; I50.9 Heart failure, unspecified; Z99.2 Dependence on renal dialysis; E78.00 Pure hypercholesterolemia, unspecified; I48.91 Unspecified atrial fibrillation; D64.9 Anemia, unspecified; Z87.891 Personal history of nicotine dependence; Z88.8 Allergy status to other drugs, medicaments and biological substances
CPT/HCPCS: 36415; 37607; 80048; 82962; 85025; 85610; 85730; J0690; J1644; J2250; J2405; J2704; J3010; J7040; S0028; J2001

== ENCOUNTER → 2016-12-27 | Outpatient (CLI) | payer MEDICARE, BC ==
[~2016-12-27] MED LIST changes: +CINA30TA2 PO; +SEVE800T8 PO
== END | disposition home or self-care (01) ==
LOC: PMGWOUND 08:53
PROVIDERS: ATTEND Emergency Medicine Undersea and Hyperbaric Medicine
DX: E11.621 Type 2 diabetes mellitus with foot ulcer (principal); L97.511 Non-pressure chronic ulcer of other part of right foot limited to breakdown of skin; E11.22 Type 2 diabetes mellitus with diabetic chronic kidney disease; I13.0 Hypertensive heart and chronic kidney disease with heart failure and stage 1 through stage 4 chronic kidney disease, or unspecified chronic kidney disease; N18.6 End stage renal disease; I50.40 Unspecified combined systolic (congestive) and diastolic (congestive) heart failure; I48.91 Unspecified atrial fibrillation; E78.5 Hyperlipidemia, unspecified; Z86.73 Personal history of transient ischemic attack (TIA), and cerebral infarction without residual deficits; Z87.891 Personal history of nicotine dependence; Z99.2 Dependence on renal dialysis; E78.00 Pure hypercholesterolemia, unspecified; E66.9 Obesity, unspecified; Z68.33 Body mass index [BMI] 33.0-33.9, adult
CPT/HCPCS: 15275; Q4101

== ENCOUNTER → 2017-01-01 | Outpatient (CLI) | payer MEDICARE, BC ==
[~2017-01-01] MED LIST changes: -0.9 % SODIUM CHLORIDE 50 ML VIAL. IJ ONE; +CINA30TA2 PO; -HYDROmorphone 2 MG/ML VIAL IV PRN; -IV RINGERS,LACTATED 1000ML 1,000 ML IV SCH; -LIDOCAINE 1% 1 ML SYRINGE. ID PRN; -LIDOCAINE 1% 20 ML VIAL. ONE; -MORPHINE SULFATE 2 MG/ML DISP.SYRIN. IV PRN; -ONDANSETRON PF 4 MG/2 ML VIAL. IV PRN; -POVIDONE-IODINE 10% TOPICAL OINTMENT 28GM TUBE. TP ONE; -PROCHLORPERAZINE 10 MG/2 ML VIAL. IV PRN; +SEVE800T8 PO; -fentaNYL PF VIAL 100 MCG/2 ML VIAL IV PRN
== END | disposition home or self-care (01) ==
LOC: PMGWOUND 11:32
PROVIDERS: ATTEND Emergency Medicine Undersea and Hyperbaric Medicine
DX: E11.621 Type 2 diabetes mellitus with foot ulcer (principal); L97.511 Non-pressure chronic ulcer of other part of right foot limited to breakdown of skin; E11.22 Type 2 diabetes mellitus with diabetic chronic kidney disease; I13.0 Hypertensive heart and chronic kidney disease with heart failure and stage 1 through stage 4 chronic kidney disease, or unspecified chronic kidney disease; N18.4 Chronic kidney disease, stage 4 (severe); I50.9 Heart failure, unspecified; E66.9 Obesity, unspecified; Z68.44 Body mass index [BMI] 60.0-69.9, adult; E78.5 Hyperlipidemia, unspecified; I48.91 Unspecified atrial fibrillation; Z86.73 Personal history of transient ischemic attack (TIA), and cerebral infarction without residual deficits; Z87.891 Personal history of nicotine dependence
CPT/HCPCS: 11042

== ENCOUNTER → 2017-01-17 | Outpatient (CLI) | payer MEDICARE, BC ==
[2017-01-12 11:00] VITALS: BP 119/68
[~2017-01-17] MED LIST changes: +CIPR250T30 PO; +INSU100I17 SQ; +INSU100I27 SQ; +METO25TA4 PO
== END | disposition home or self-care (01) ==
LOC: PMGWOUND 08:57
PROVIDERS: ATTEND Emergency Medicine Undersea and Hyperbaric Medicine
DX: E11.621 Type 2 diabetes mellitus with foot ulcer (principal); L97.511 Non-pressure chronic ulcer of other part of right foot limited to breakdown of skin; I25.10 Atherosclerotic heart disease of native coronary artery without angina pectoris; I48.2 Chronic atrial fibrillation; K21.9 Gastro-esophageal reflux disease without esophagitis; E11.22 Type 2 diabetes mellitus with diabetic chronic kidney disease; I13.2 Hypertensive heart and chronic kidney disease with heart failure and with stage 5 chronic kidney disease, or end stage renal disease; N18.6 End stage renal disease; I50.42 Chronic combined systolic (congestive) and diastolic (congestive) heart failure; Z99.2 Dependence on renal dialysis; E78.5 Hyperlipidemia, unspecified; I25.2 Old myocardial infarction; E11.51 Type 2 diabetes mellitus with diabetic peripheral angiopathy without gangrene; E66.9 Obesity, unspecified; Z87.891 Personal history of nicotine dependence; Z86.73 Personal history of transient ischemic attack (TIA), and cerebral infarction without residual deficits; Z68.44 Body mass index [BMI] 60.0-69.9, adult; Z79.4 Long term (current) use of insulin
CPT/HCPCS: 11042

== ENCOUNTER → 2017-01-24 | Outpatient (CLI) | payer MEDICARE, BC ==
[2017-01-12 11:00] VITALS: BP 119/68
== END | disposition home or self-care (01) ==
LOC: PMGWOUND 09:39
PROVIDERS: ATTEND Emergency Medicine Undersea and Hyperbaric Medicine
DX: E11.621 Type 2 diabetes mellitus with foot ulcer (principal); L97.511 Non-pressure chronic ulcer of other part of right foot limited to breakdown of skin; I25.10 Atherosclerotic heart disease of native coronary artery without angina pectoris; I48.2 Chronic atrial fibrillation; K21.9 Gastro-esophageal reflux disease without esophagitis; E11.22 Type 2 diabetes mellitus with diabetic chronic kidney disease; I13.2 Hypertensive heart and chronic kidney disease with heart failure and with stage 5 chronic kidney disease, or end stage renal disease; N18.6 End stage renal disease; I50.42 Chronic combined systolic (congestive) and diastolic (congestive) heart failure; E78.5 Hyperlipidemia, unspecified; E66.9 Obesity, unspecified; Z99.2 Dependence on renal dialysis; I25.2 Old myocardial infarction; Z87.891 Personal history of nicotine dependence; Z68.44 Body mass index [BMI] 60.0-69.9, adult; Z79.4 Long term (current) use of insulin; Z86.73 Personal history of transient ischemic attack (TIA), and cerebral infarction without residual deficits; E11.51 Type 2 diabetes mellitus with diabetic peripheral angiopathy without gangrene
CPT/HCPCS: 11042; 29445

== ENCOUNTER → 2017-01-29 | Outpatient (CLI) | payer MEDICARE, BC ==
[2017-01-12 11:00] VITALS: BP 119/68
== END | disposition home or self-care (01) ==
LOC: PMGWOUND 08:47
PROVIDERS: ATTEND Emergency Medicine Undersea and Hyperbaric Medicine
DX: E11.621 Type 2 diabetes mellitus with foot ulcer (principal); L97.521 Non-pressure chronic ulcer of other part of left foot limited to breakdown of skin; E11.22 Type 2 diabetes mellitus with diabetic chronic kidney disease; I13.0 Hypertensive heart and chronic kidney disease with heart failure and stage 1 through stage 4 chronic kidney disease, or unspecified chronic kidney disease; N18.4 Chronic kidney disease, stage 4 (severe); I50.9 Heart failure, unspecified; Z86.73 Personal history of transient ischemic attack (TIA), and cerebral infarction without residual deficits; Z87.891 Personal history of nicotine dependence
CPT/HCPCS: 11042; 29445

== ENCOUNTER → 2017-02-05 | Outpatient (CLI) | payer MEDICARE, BC ==
[2017-01-12 11:00] VITALS: BP 119/68
== END | disposition home or self-care (01) ==
LOC: PMGWOUND 08:50
PROVIDERS: ATTEND Emergency Medicine Undersea and Hyperbaric Medicine
DX: E11.621 Type 2 diabetes mellitus with foot ulcer (principal); L97.521 Non-pressure chronic ulcer of other part of left foot limited to breakdown of skin; I10 Essential (primary) hypertension; M10.9 Gout, unspecified; E11.22 Type 2 diabetes mellitus with diabetic chronic kidney disease; I13.0 Hypertensive heart and chronic kidney disease with heart failure and stage 1 through stage 4 chronic kidney disease, or unspecified chronic kidney disease; N18.4 Chronic kidney disease, stage 4 (severe); I50.9 Heart failure, unspecified; E78.5 Hyperlipidemia, unspecified; Z86.73 Personal history of transient ischemic attack (TIA), and cerebral infarction without residual deficits; E66.9 Obesity, unspecified; Z87.891 Personal history of nicotine dependence; Z68.44 Body mass index [BMI] 60.0-69.9, adult; I25.2 Old myocardial infarction; Z99.2 Dependence on renal dialysis
CPT/HCPCS: 29445

== ENCOUNTER → 2017-02-08 | Outpatient (CLI) | payer MEDICARE, BC ==
[2017-01-12 11:00] VITALS: BP 119/68
== END | disposition home or self-care (01) ==
LOC: PMGWOUND 08:04
PROVIDERS: ATTEND Preventive Medicine Undersea and Hyperbaric Medicine
DX: E11.621 Type 2 diabetes mellitus with foot ulcer (principal); L97.511 Non-pressure chronic ulcer of other part of right foot limited to breakdown of skin; E11.22 Type 2 diabetes mellitus with diabetic chronic kidney disease; I13.0 Hypertensive heart and chronic kidney disease with heart failure and stage 1 through stage 4 chronic kidney disease, or unspecified chronic kidney disease; I50.42 Chronic combined systolic (congestive) and diastolic (congestive) heart failure; E66.9 Obesity, unspecified; N18.6 End stage renal disease; I25.2 Old myocardial infarction; I25.10 Atherosclerotic heart disease of native coronary artery without angina pectoris; I48.2 Chronic atrial fibrillation; K21.9 Gastro-esophageal reflux disease without esophagitis; E78.5 Hyperlipidemia, unspecified; Z68.44 Body mass index [BMI] 60.0-69.9, adult; Z86.73 Personal history of transient ischemic attack (TIA), and cerebral infarction without residual deficits; Z87.891 Personal history of nicotine dependence; Z99.2 Dependence on renal dialysis; Z79.4 Long term (current) use of insulin
CPT/HCPCS: 99214

== ENCOUNTER → 2017-02-14 | Outpatient (CLI) | payer MEDICARE, BC ==
[2017-01-12 11:00] VITALS: BP 119/68
== END | disposition home or self-care (01) ==
LOC: PMGWOUND 10:08
PROVIDERS: ATTEND Emergency Medicine Undersea and Hyperbaric Medicine
DX: E11.621 Type 2 diabetes mellitus with foot ulcer (principal); L97.511 Non-pressure chronic ulcer of other part of right foot limited to breakdown of skin; I25.10 Atherosclerotic heart disease of native coronary artery without angina pectoris; I48.2 Chronic atrial fibrillation; K21.9 Gastro-esophageal reflux disease without esophagitis; E11.22 Type 2 diabetes mellitus with diabetic chronic kidney disease; I13.2 Hypertensive heart and chronic kidney disease with heart failure and with stage 5 chronic kidney disease, or end stage renal disease; N18.6 End stage renal disease; I50.42 Chronic combined systolic (congestive) and diastolic (congestive) heart failure; E66.9 Obesity, unspecified; E78.5 Hyperlipidemia, unspecified; I25.2 Old myocardial infarction; E11.51 Type 2 diabetes mellitus with diabetic peripheral angiopathy without gangrene; Z99.2 Dependence on renal dialysis; Z79.4 Long term (current) use of insulin; Z68.44 Body mass index [BMI] 60.0-69.9, adult; Z87.891 Personal history of nicotine dependence; Z86.73 Personal history of transient ischemic attack (TIA), and cerebral infarction without residual deficits
CPT/HCPCS: 11042

== ENCOUNTER → 2017-02-21 | Outpatient (CLI) | payer MEDICARE, BC ==
[2017-01-12 11:00] VITALS: BP 119/68
== END | disposition home or self-care (01) ==
LOC: PMGWOUND 09:42
PROVIDERS: ATTEND Emergency Medicine Undersea and Hyperbaric Medicine
DX: E11.621 Type 2 diabetes mellitus with foot ulcer (principal); L97.521 Non-pressure chronic ulcer of other part of left foot limited to breakdown of skin; E11.22 Type 2 diabetes mellitus with diabetic chronic kidney disease; I13.0 Hypertensive heart and chronic kidney disease with heart failure and stage 1 through stage 4 chronic kidney disease, or unspecified chronic kidney disease; N18.4 Chronic kidney disease, stage 4 (severe); I50.9 Heart failure, unspecified; I48.91 Unspecified atrial fibrillation; E66.9 Obesity, unspecified; E78.5 Hyperlipidemia, unspecified; Z86.73 Personal history of transient ischemic attack (TIA), and cerebral infarction without residual deficits; Z87.891 Personal history of nicotine dependence
CPT/HCPCS: 11042

== ENCOUNTER → 2017-03-05 | Outpatient (CLI) | payer MEDICARE, BC ==
[2017-01-12 11:00] VITALS: BP 119/68
== END | disposition home or self-care (01) ==
LOC: PMGWOUND 10:22
PROVIDERS: ATTEND Emergency Medicine Undersea and Hyperbaric Medicine
DX: E11.621 Type 2 diabetes mellitus with foot ulcer (principal); L97.511 Non-pressure chronic ulcer of other part of right foot limited to breakdown of skin; E78.5 Hyperlipidemia, unspecified; E11.22 Type 2 diabetes mellitus with diabetic chronic kidney disease; I13.0 Hypertensive heart and chronic kidney disease with heart failure and stage 1 through stage 4 chronic kidney disease, or unspecified chronic kidney disease; I50.42 Chronic combined systolic (congestive) and diastolic (congestive) heart failure; N18.6 End stage renal disease; I48.2 Chronic atrial fibrillation; K21.9 Gastro-esophageal reflux disease without esophagitis; I25.10 Atherosclerotic heart disease of native coronary artery without angina pectoris; E66.9 Obesity, unspecified; I25.2 Old myocardial infarction; E11.51 Type 2 diabetes mellitus with diabetic peripheral angiopathy without gangrene; Z99.2 Dependence on renal dialysis; Z79.4 Long term (current) use of insulin; Z87.891 Personal history of nicotine dependence; Z86.73 Personal history of transient ischemic attack (TIA), and cerebral infarction without residual deficits; Z68.44 Body mass index [BMI] 60.0-69.9, adult
CPT/HCPCS: 97597

== ENCOUNTER → 2017-03-12 | Outpatient (CLI) | payer MEDICARE, BC ==
[2017-01-12 11:00] VITALS: BP 119/68
== END | disposition home or self-care (01) ==
LOC: PMGWOUND 09:45
PROVIDERS: ATTEND Emergency Medicine Undersea and Hyperbaric Medicine
DX: E11.621 Type 2 diabetes mellitus with foot ulcer (principal); L97.511 Non-pressure chronic ulcer of other part of right foot limited to breakdown of skin; I10 Essential (primary) hypertension; I48.91 Unspecified atrial fibrillation; E66.9 Obesity, unspecified; E78.5 Hyperlipidemia, unspecified; Z86.73 Personal history of transient ischemic attack (TIA), and cerebral infarction without residual deficits; Z87.891 Personal history of nicotine dependence; E11.22 Type 2 diabetes mellitus with diabetic chronic kidney disease; I13.0 Hypertensive heart and chronic kidney disease with heart failure and stage 1 through stage 4 chronic kidney disease, or unspecified chronic kidney disease; N18.4 Chronic kidney disease, stage 4 (severe); I50.9 Heart failure, unspecified; Z79.4 Long term (current) use of insulin; I25.2 Old myocardial infarction
CPT/HCPCS: 97597

== ENCOUNTER → 2017-04-09 | Outpatient (CLI) | payer MEDICARE, BC ==
[2017-01-12 11:00] VITALS: BP 119/68
== END | disposition home or self-care (01) ==
LOC: PMGWOUND 09:44
PROVIDERS: ATTEND Emergency Medicine Undersea and Hyperbaric Medicine
DX: E11.621 Type 2 diabetes mellitus with foot ulcer (principal); L97.511 Non-pressure chronic ulcer of other part of right foot limited to breakdown of skin; E11.22 Type 2 diabetes mellitus with diabetic chronic kidney disease; I13.2 Hypertensive heart and chronic kidney disease with heart failure and with stage 5 chronic kidney disease, or end stage renal disease; I50.42 Chronic combined systolic (congestive) and diastolic (congestive) heart failure; N18.6 End stage renal disease; E66.9 Obesity, unspecified; I25.2 Old myocardial infarction; I48.91 Unspecified atrial fibrillation; I25.10 Atherosclerotic heart disease of native coronary artery without angina pectoris; I48.2 Chronic atrial fibrillation; K21.9 Gastro-esophageal reflux disease without esophagitis; E11.51 Type 2 diabetes mellitus with diabetic peripheral angiopathy without gangrene; Z68.44 Body mass index [BMI] 60.0-69.9, adult; Z86.73 Personal history of transient ischemic attack (TIA), and cerebral infarction without residual deficits; Z87.891 Personal history of nicotine dependence; Z79.4 Long term (current) use of insulin; Z99.2 Dependence on renal dialysis
CPT/HCPCS: 11042

== ENCOUNTER → 2017-04-16 | Outpatient (CLI) | payer MEDICARE, BC ==
[2017-01-12 11:00] VITALS: BP 119/68
== END | disposition home or self-care (01) ==
LOC: PMGWOUND 09:36
PROVIDERS: ATTEND Emergency Medicine Undersea and Hyperbaric Medicine
DX: E11.621 Type 2 diabetes mellitus with foot ulcer (principal); L97.521 Non-pressure chronic ulcer of other part of left foot limited to breakdown of skin; I48.91 Unspecified atrial fibrillation; E78.5 Hyperlipidemia, unspecified; M10.9 Gout, unspecified; E11.51 Type 2 diabetes mellitus with diabetic peripheral angiopathy without gangrene; I25.2 Old myocardial infarction; E66.9 Obesity, unspecified; E11.22 Type 2 diabetes mellitus with diabetic chronic kidney disease; N18.6 End stage renal disease; I25.10 Atherosclerotic heart disease of native coronary artery without angina pectoris; I13.2 Hypertensive heart and chronic kidney disease with heart failure and with stage 5 chronic kidney disease, or end stage renal disease; I50.42 Chronic combined systolic (congestive) and diastolic (congestive) heart failure; K21.9 Gastro-esophageal reflux disease without esophagitis; Z79.4 Long term (current) use of insulin; Z99.2 Dependence on renal dialysis; Z68.32 Body mass index [BMI] 32.0-32.9, adult; Z87.891 Personal history of nicotine dependence; Z86.73 Personal history of transient ischemic attack (TIA), and cerebral infarction without residual deficits
CPT/HCPCS: 11042

== ENCOUNTER → 2017-04-23 | Outpatient (CLI) | payer MEDICARE, BC ==
[2017-01-12 11:00] VITALS: BP 119/68
== END | disposition home or self-care (01) ==
LOC: PMGWOUND 09:41
PROVIDERS: ATTEND Emergency Medicine Undersea and Hyperbaric Medicine
DX: E11.621 Type 2 diabetes mellitus with foot ulcer (principal); L97.511 Non-pressure chronic ulcer of other part of right foot limited to breakdown of skin; E11.51 Type 2 diabetes mellitus with diabetic peripheral angiopathy without gangrene; E11.22 Type 2 diabetes mellitus with diabetic chronic kidney disease; I13.2 Hypertensive heart and chronic kidney disease with heart failure and with stage 5 chronic kidney disease, or end stage renal disease; I50.42 Chronic combined systolic (congestive) and diastolic (congestive) heart failure; N18.6 End stage renal disease; I25.10 Atherosclerotic heart disease of native coronary artery without angina pectoris; K21.9 Gastro-esophageal reflux disease without esophagitis; E78.5 Hyperlipidemia, unspecified; I25.2 Old myocardial infarction; I48.2 Chronic atrial fibrillation; E66.9 Obesity, unspecified; Z68.32 Body mass index [BMI] 32.0-32.9, adult; Z90.5 Acquired absence of kidney; Z79.4 Long term (current) use of insulin; Z99.2 Dependence on renal dialysis; Z87.891 Personal history of nicotine dependence; Z86.73 Personal history of transient ischemic attack (TIA), and cerebral infarction without residual deficits
CPT/HCPCS: 11042

== ENCOUNTER → 2017-04-30 | Outpatient (CLI) | payer MEDICARE, BC ==
[2017-01-12 11:00] VITALS: BP 119/68
== END | disposition home or self-care (01) ==
LOC: PMGWOUND 09:50
PROVIDERS: ATTEND Emergency Medicine Undersea and Hyperbaric Medicine
DX: E11.621 Type 2 diabetes mellitus with foot ulcer (principal); L97.511 Non-pressure chronic ulcer of other part of right foot limited to breakdown of skin; L97.521 Non-pressure chronic ulcer of other part of left foot limited to breakdown of skin; E11.51 Type 2 diabetes mellitus with diabetic peripheral angiopathy without gangrene; E11.22 Type 2 diabetes mellitus with diabetic chronic kidney disease; I13.2 Hypertensive heart and chronic kidney disease with heart failure and with stage 5 chronic kidney disease, or end stage renal disease; I50.42 Chronic combined systolic (congestive) and diastolic (congestive) heart failure; N18.6 End stage renal disease; I25.10 Atherosclerotic heart disease of native coronary artery without angina pectoris; K21.9 Gastro-esophageal reflux disease without esophagitis; E78.5 Hyperlipidemia, unspecified; I25.2 Old myocardial infarction; I48.2 Chronic atrial fibrillation; E66.9 Obesity, unspecified; Z68.32 Body mass index [BMI] 32.0-32.9, adult; Z86.73 Personal history of transient ischemic attack (TIA), and cerebral infarction without residual deficits; Z90.5 Acquired absence of kidney; Z79.4 Long term (current) use of insulin; Z99.2 Dependence on renal dialysis; Z87.891 Personal history of nicotine dependence
CPT/HCPCS: 11042

== ENCOUNTER → 2017-05-09 | Outpatient (CLI) | payer MEDICARE, BC | END | disposition home or self-care (01) | LOC: PMGWOUND 09:44 | DX: E11.621 Type 2 diabetes mellitus with foot ulcer (principal); L97.511 Non-pressure chronic ulcer of other part of right foot limited to breakdown of skin; L97.521 Non-pressure chronic ulcer of other part of left foot limited to breakdown of skin; E11.51 Type 2 diabetes mellitus with diabetic peripheral angiopathy without gangrene; E11.22 Type 2 diabetes mellitus with diabetic chronic kidney disease; I13.2 Hypertensive heart and chronic kidney disease with heart failure and with stage 5 chronic kidney disease, or end stage renal disease; I50.42 Chronic combined systolic (congestive) and diastolic (congestive) heart failure; N18.6 End stage renal disease; I25.10 Atherosclerotic heart disease of native coronary artery without angina pectoris; E78.5 Hyperlipidemia, unspecified; K21.9 Gastro-esophageal reflux disease without esophagitis; I25.2 Old myocardial infarction; I48.2 Chronic atrial fibrillation; E66.9 Obesity, unspecified; Z68.32 Body mass index [BMI] 32.0-32.9, adult; Z86.73 Personal history of transient ischemic attack (TIA), and cerebral infarction without residual deficits; Z90.5 Acquired absence of kidney; Z79.4 Long term (current) use of insulin; Z99.2 Dependence on renal dialysis; Z87.891 Personal history of nicotine dependence | CPT/HCPCS: 11042 ==

== ENCOUNTER → 2017-05-14 | Outpatient (CLI) | payer MEDICARE, BC | END | disposition home or self-care (01) | LOC: PMGWOUND 09:41 | DX: E11.621 Type 2 diabetes mellitus with foot ulcer (principal); L97.511 Non-pressure chronic ulcer of other part of right foot limited to breakdown of skin; L97.521 Non-pressure chronic ulcer of other part of left foot limited to breakdown of skin; E11.51 Type 2 diabetes mellitus with diabetic peripheral angiopathy without gangrene; E11.22 Type 2 diabetes mellitus with diabetic chronic kidney disease; I13.2 Hypertensive heart and chronic kidney disease with heart failure and with stage 5 chronic kidney disease, or end stage renal disease; I50.42 Chronic combined systolic (congestive) and diastolic (congestive) heart failure; N18.6 End stage renal disease; I25.10 Atherosclerotic heart disease of native coronary artery without angina pectoris; E78.5 Hyperlipidemia, unspecified; K21.9 Gastro-esophageal reflux disease without esophagitis; I25.2 Old myocardial infarction; I48.2 Chronic atrial fibrillation; E66.9 Obesity, unspecified; Z68.32 Body mass index [BMI] 32.0-32.9, adult; Z86.73 Personal history of transient ischemic attack (TIA), and cerebral infarction without residual deficits; Z90.5 Acquired absence of kidney; Z79.4 Long term (current) use of insulin; Z99.2 Dependence on renal dialysis; Z87.891 Personal history of nicotine dependence | CPT/HCPCS: 29445; 97597 ==

== ENCOUNTER → 2017-05-16 | Outpatient (CLI) | payer MEDICARE, BC | END | disposition home or self-care (01) | LOC: PMGWOUND 10:30 | DX: E11.621 Type 2 diabetes mellitus with foot ulcer (principal); L97.511 Non-pressure chronic ulcer of other part of right foot limited to breakdown of skin; L97.521 Non-pressure chronic ulcer of other part of left foot limited to breakdown of skin; E11.51 Type 2 diabetes mellitus with diabetic peripheral angiopathy without gangrene; E11.22 Type 2 diabetes mellitus with diabetic chronic kidney disease; I13.2 Hypertensive heart and chronic kidney disease with heart failure and with stage 5 chronic kidney disease, or end stage renal disease; I50.42 Chronic combined systolic (congestive) and diastolic (congestive) heart failure; N18.6 End stage renal disease; I25.10 Atherosclerotic heart disease of native coronary artery without angina pectoris; E78.5 Hyperlipidemia, unspecified; K21.9 Gastro-esophageal reflux disease without esophagitis; I25.2 Old myocardial infarction; I48.2 Chronic atrial fibrillation; E66.9 Obesity, unspecified; Z68.32 Body mass index [BMI] 32.0-32.9, adult; Z86.73 Personal history of transient ischemic attack (TIA), and cerebral infarction without residual deficits; Z90.5 Acquired absence of kidney; Z79.4 Long term (current) use of insulin; Z99.2 Dependence on renal dialysis; Z87.891 Personal history of nicotine dependence | CPT/HCPCS: 29445 ==

== ENCOUNTER → 2017-05-23 | Outpatient (CLI) | payer MEDICARE, BC | END | disposition home or self-care (01) | LOC: PMGWOUND 10:31 | DX: E11.621 Type 2 diabetes mellitus with foot ulcer (principal); L97.511 Non-pressure chronic ulcer of other part of right foot limited to breakdown of skin; L97.522 Non-pressure chronic ulcer of other part of left foot with fat layer exposed; E11.51 Type 2 diabetes mellitus with diabetic peripheral angiopathy without gangrene; E11.22 Type 2 diabetes mellitus with diabetic chronic kidney disease; I13.2 Hypertensive heart and chronic kidney disease with heart failure and with stage 5 chronic kidney disease, or end stage renal disease; I50.42 Chronic combined systolic (congestive) and diastolic (congestive) heart failure; N18.6 End stage renal disease; I25.10 Atherosclerotic heart disease of native coronary artery without angina pectoris; E78.5 Hyperlipidemia, unspecified; K21.9 Gastro-esophageal reflux disease without esophagitis; I25.2 Old myocardial infarction; I48.2 Chronic atrial fibrillation; E66.9 Obesity, unspecified; Z68.32 Body mass index [BMI] 32.0-32.9, adult; Z86.73 Personal history of transient ischemic attack (TIA), and cerebral infarction without residual deficits; Z90.5 Acquired absence of kidney; Z79.4 Long term (current) use of insulin; Z99.2 Dependence on renal dialysis; Z87.891 Personal history of nicotine dependence | CPT/HCPCS: 11042 ==

== ENCOUNTER 2017-06-03 13:55 | Emergency (ER) | payer MEDICARE, BC ==
[2017-06-03 17:16] LABS: POC GLUCOSE 106 mg/dL (70-99)
== END 2017-06-03 15:20 | disposition left against medical advice (07) ==
LOC: ER 15:20
DX: R06.02 Shortness of breath (principal); I12.9 Hypertensive chronic kidney disease with stage 1 through stage 4 chronic kidney disease, or unspecified chronic kidney disease; E11.22 Type 2 diabetes mellitus with diabetic chronic kidney disease; N18.9 Chronic kidney disease, unspecified; I48.91 Unspecified atrial fibrillation; Z90.5 Acquired absence of kidney; Z53.21 Procedure and treatment not carried out due to patient leaving prior to being seen by health care provider; Z99.2 Dependence on renal dialysis; Z87.891 Personal history of nicotine dependence
CPT/HCPCS: 82962

== ENCOUNTER → 2017-06-20 | Outpatient (CLI) | payer MEDICARE, BC | END | disposition home or self-care (01) | LOC: PMGWOUND 11:28 | DX: E11.621 Type 2 diabetes mellitus with foot ulcer (principal); L97.511 Non-pressure chronic ulcer of other part of right foot limited to breakdown of skin; L97.522 Non-pressure chronic ulcer of other part of left foot with fat layer exposed; E11.51 Type 2 diabetes mellitus with diabetic peripheral angiopathy without gangrene; E11.22 Type 2 diabetes mellitus with diabetic chronic kidney disease; I13.2 Hypertensive heart and chronic kidney disease with heart failure and with stage 5 chronic kidney disease, or end stage renal disease; I50.42 Chronic combined systolic (congestive) and diastolic (congestive) heart failure; N18.6 End stage renal disease; I25.10 Atherosclerotic heart disease of native coronary artery without angina pectoris; E78.5 Hyperlipidemia, unspecified; K21.9 Gastro-esophageal reflux disease without esophagitis; I25.2 Old myocardial infarction; I48.2 Chronic atrial fibrillation; E66.9 Obesity, unspecified; Z68.32 Body mass index [BMI] 32.0-32.9, adult; Z86.73 Personal history of transient ischemic attack (TIA), and cerebral infarction without residual deficits; Z90.5 Acquired absence of kidney; Z79.4 Long term (current) use of insulin; Z99.2 Dependence on renal dialysis; Z87.891 Personal history of nicotine dependence | CPT/HCPCS: 11042 ==

== ENCOUNTER → 2017-06-27 | Outpatient (CLI) | payer MEDICARE, BC | END | disposition home or self-care (01) | LOC: PMGWOUND 10:13 | DX: E11.621 Type 2 diabetes mellitus with foot ulcer (principal); L97.511 Non-pressure chronic ulcer of other part of right foot limited to breakdown of skin; L97.522 Non-pressure chronic ulcer of other part of left foot with fat layer exposed; E11.51 Type 2 diabetes mellitus with diabetic peripheral angiopathy without gangrene; E11.22 Type 2 diabetes mellitus with diabetic chronic kidney disease; I13.2 Hypertensive heart and chronic kidney disease with heart failure and with stage 5 chronic kidney disease, or end stage renal disease; I50.42 Chronic combined systolic (congestive) and diastolic (congestive) heart failure; N18.6 End stage renal disease; I25.10 Atherosclerotic heart disease of native coronary artery without angina pectoris; L84 Corns and callosities; E78.5 Hyperlipidemia, unspecified; K21.9 Gastro-esophageal reflux disease without esophagitis; I25.2 Old myocardial infarction; I48.2 Chronic atrial fibrillation; E66.9 Obesity, unspecified; Z68.32 Body mass index [BMI] 32.0-32.9, adult; Z86.73 Personal history of transient ischemic attack (TIA), and cerebral infarction without residual deficits; Z90.5 Acquired absence of kidney; Z79.4 Long term (current) use of insulin; Z99.2 Dependence on renal dialysis; Z87.891 Personal history of nicotine dependence | CPT/HCPCS: 11042 ==

== ENCOUNTER → 2017-07-11 | Outpatient (CLI) | payer MEDICARE, BC | END | disposition home or self-care (01) | LOC: PMGWOUND 12:25 | DX: E11.621 Type 2 diabetes mellitus with foot ulcer (principal); L97.511 Non-pressure chronic ulcer of other part of right foot limited to breakdown of skin; L97.522 Non-pressure chronic ulcer of other part of left foot with fat layer exposed; E11.51 Type 2 diabetes mellitus with diabetic peripheral angiopathy without gangrene; E11.22 Type 2 diabetes mellitus with diabetic chronic kidney disease; I13.2 Hypertensive heart and chronic kidney disease with heart failure and with stage 5 chronic kidney disease, or end stage renal disease; I50.42 Chronic combined systolic (congestive) and diastolic (congestive) heart failure; N18.6 End stage renal disease; I25.10 Atherosclerotic heart disease of native coronary artery without angina pectoris; E78.5 Hyperlipidemia, unspecified; L84 Corns and callosities; K21.9 Gastro-esophageal reflux disease without esophagitis; I25.2 Old myocardial infarction; I48.2 Chronic atrial fibrillation; E21.3 Hyperparathyroidism, unspecified; E66.9 Obesity, unspecified; Z68.32 Body mass index [BMI] 32.0-32.9, adult; Z86.73 Personal history of transient ischemic attack (TIA), and cerebral infarction without residual deficits; Z90.5 Acquired absence of kidney; Z79.4 Long term (current) use of insulin; Z99.2 Dependence on renal dialysis; Z87.891 Personal history of nicotine dependence; Z79.01 Long term (current) use of anticoagulants | CPT/HCPCS: 11042 ==

== ENCOUNTER → 2017-07-30 | Outpatient (CLI) | payer MEDICARE, BC | END | disposition home or self-care (01) | LOC: PMGWOUND 10:30 | DX: E11.621 Type 2 diabetes mellitus with foot ulcer (principal); L97.511 Non-pressure chronic ulcer of other part of right foot limited to breakdown of skin; L97.522 Non-pressure chronic ulcer of other part of left foot with fat layer exposed; E11.51 Type 2 diabetes mellitus with diabetic peripheral angiopathy without gangrene; E11.22 Type 2 diabetes mellitus with diabetic chronic kidney disease; I13.2 Hypertensive heart and chronic kidney disease with heart failure and with stage 5 chronic kidney disease, or end stage renal disease; I50.42 Chronic combined systolic (congestive) and diastolic (congestive) heart failure; N18.6 End stage renal disease; I25.10 Atherosclerotic heart disease of native coronary artery without angina pectoris; E78.5 Hyperlipidemia, unspecified; L84 Corns and callosities; K21.9 Gastro-esophageal reflux disease without esophagitis; I48.2 Chronic atrial fibrillation; E21.3 Hyperparathyroidism, unspecified; I25.2 Old myocardial infarction; E66.9 Obesity, unspecified; Z68.32 Body mass index [BMI] 32.0-32.9, adult; Z86.73 Personal history of transient ischemic attack (TIA), and cerebral infarction without residual deficits; Z90.5 Acquired absence of kidney; Z79.4 Long term (current) use of insulin; Z99.2 Dependence on renal dialysis; Z87.891 Personal history of nicotine dependence; Z79.01 Long term (current) use of anticoagulants | CPT/HCPCS: 99214 ==

== ENCOUNTER → 2017-08-13 | Outpatient (CLI) | payer MEDICARE, BC | END | disposition home or self-care (01) | LOC: PMGWOUND 10:27 | DX: E11.621 Type 2 diabetes mellitus with foot ulcer (principal); L97.511 Non-pressure chronic ulcer of other part of right foot limited to breakdown of skin; L97.522 Non-pressure chronic ulcer of other part of left foot with fat layer exposed; E11.51 Type 2 diabetes mellitus with diabetic peripheral angiopathy without gangrene; E11.22 Type 2 diabetes mellitus with diabetic chronic kidney disease; I13.2 Hypertensive heart and chronic kidney disease with heart failure and with stage 5 chronic kidney disease, or end stage renal disease; I50.42 Chronic combined systolic (congestive) and diastolic (congestive) heart failure; N18.6 End stage renal disease; I25.10 Atherosclerotic heart disease of native coronary artery without angina pectoris; E78.5 Hyperlipidemia, unspecified; L84 Corns and callosities; K21.9 Gastro-esophageal reflux disease without esophagitis; I48.2 Chronic atrial fibrillation; E21.3 Hyperparathyroidism, unspecified; I25.2 Old myocardial infarction; E66.9 Obesity, unspecified; Z68.32 Body mass index [BMI] 32.0-32.9, adult; Z86.73 Personal history of transient ischemic attack (TIA), and cerebral infarction without residual deficits; Z90.5 Acquired absence of kidney; Z79.4 Long term (current) use of insulin; Z99.2 Dependence on renal dialysis; Z87.891 Personal history of nicotine dependence; Z79.01 Long term (current) use of anticoagulants | CPT/HCPCS: 11042 ==

== ENCOUNTER → 2017-08-27 | Outpatient (CLI) | payer MEDICARE, BC | END | disposition home or self-care (01) | LOC: PMGWOUND 09:41 | DX: E11.621 Type 2 diabetes mellitus with foot ulcer (principal); L97.511 Non-pressure chronic ulcer of other part of right foot limited to breakdown of skin; L97.522 Non-pressure chronic ulcer of other part of left foot with fat layer exposed; E11.51 Type 2 diabetes mellitus with diabetic peripheral angiopathy without gangrene; E11.22 Type 2 diabetes mellitus with diabetic chronic kidney disease; I13.2 Hypertensive heart and chronic kidney disease with heart failure and with stage 5 chronic kidney disease, or end stage renal disease; I50.42 Chronic combined systolic (congestive) and diastolic (congestive) heart failure; N18.6 End stage renal disease; I25.10 Atherosclerotic heart disease of native coronary artery without angina pectoris; E78.5 Hyperlipidemia, unspecified; L84 Corns and callosities; K21.9 Gastro-esophageal reflux disease without esophagitis; I48.2 Chronic atrial fibrillation; E21.3 Hyperparathyroidism, unspecified; I25.2 Old myocardial infarction; E66.9 Obesity, unspecified; Z68.32 Body mass index [BMI] 32.0-32.9, adult; Z86.73 Personal history of transient ischemic attack (TIA), and cerebral infarction without residual deficits; Z90.5 Acquired absence of kidney; Z79.4 Long term (current) use of insulin; Z99.2 Dependence on renal dialysis; Z87.891 Personal history of nicotine dependence; Z79.01 Long term (current) use of anticoagulants | CPT/HCPCS: 11042 ==

== ENCOUNTER → 2017-09-10 | Outpatient (CLI) | payer MEDICARE, BC | END | disposition home or self-care (01) | LOC: PMGWOUND 09:43 | DX: E11.621 Type 2 diabetes mellitus with foot ulcer (principal); L97.512 Non-pressure chronic ulcer of other part of right foot with fat layer exposed; I70.201 Unspecified atherosclerosis of native arteries of extremities, right leg; I25.10 Atherosclerotic heart disease of native coronary artery without angina pectoris; I48.2 Chronic atrial fibrillation; K21.9 Gastro-esophageal reflux disease without esophagitis; E11.22 Type 2 diabetes mellitus with diabetic chronic kidney disease; I13.2 Hypertensive heart and chronic kidney disease with heart failure and with stage 5 chronic kidney disease, or end stage renal disease; N18.6 End stage renal disease; I50.42 Chronic combined systolic (congestive) and diastolic (congestive) heart failure; E78.5 Hyperlipidemia, unspecified; E21.3 Hyperparathyroidism, unspecified; E11.51 Type 2 diabetes mellitus with diabetic peripheral angiopathy without gangrene; E66.9 Obesity, unspecified; I25.2 Old myocardial infarction; Z87.891 Personal history of nicotine dependence; Z86.73 Personal history of transient ischemic attack (TIA), and cerebral infarction without residual deficits; Z99.2 Dependence on renal dialysis; Z79.01 Long term (current) use of anticoagulants; Z79.4 Long term (current) use of insulin; Z68.32 Body mass index [BMI] 32.0-32.9, adult | CPT/HCPCS: 11042 ==

== ENCOUNTER → 2017-09-17 | Outpatient (CLI) | payer MEDICARE, BC | END | disposition home or self-care (01) | LOC: PMGWOUND 09:45 | DX: E11.621 Type 2 diabetes mellitus with foot ulcer (principal); L97.511 Non-pressure chronic ulcer of other part of right foot limited to breakdown of skin; L97.522 Non-pressure chronic ulcer of other part of left foot with fat layer exposed; I70.201 Unspecified atherosclerosis of native arteries of extremities, right leg; E11.51 Type 2 diabetes mellitus with diabetic peripheral angiopathy without gangrene; E11.22 Type 2 diabetes mellitus with diabetic chronic kidney disease; I13.2 Hypertensive heart and chronic kidney disease with heart failure and with stage 5 chronic kidney disease, or end stage renal disease; I50.42 Chronic combined systolic (congestive) and diastolic (congestive) heart failure; N18.6 End stage renal disease; I25.10 Atherosclerotic heart disease of native coronary artery without angina pectoris; E78.5 Hyperlipidemia, unspecified; L84 Corns and callosities; K21.9 Gastro-esophageal reflux disease without esophagitis; I48.2 Chronic atrial fibrillation; E21.3 Hyperparathyroidism, unspecified; I25.2 Old myocardial infarction; E66.9 Obesity, unspecified; Z68.32 Body mass index [BMI] 32.0-32.9, adult; Z86.73 Personal history of transient ischemic attack (TIA), and cerebral infarction without residual deficits; Z90.5 Acquired absence of kidney; Z79.4 Long term (current) use of insulin; Z99.2 Dependence on renal dialysis; Z87.891 Personal history of nicotine dependence; Z79.01 Long term (current) use of anticoagulants | CPT/HCPCS: 11042; 93922 ==

== ENCOUNTER → 2017-09-24 | Outpatient (CLI) | payer MEDICARE, BC | END | disposition home or self-care (01) | LOC: PMGWOUND 09:36 | DX: E11.621 Type 2 diabetes mellitus with foot ulcer (principal); L97.511 Non-pressure chronic ulcer of other part of right foot limited to breakdown of skin; I70.201 Unspecified atherosclerosis of native arteries of extremities, right leg; L97.522 Non-pressure chronic ulcer of other part of left foot with fat layer exposed; E11.51 Type 2 diabetes mellitus with diabetic peripheral angiopathy without gangrene; E11.22 Type 2 diabetes mellitus with diabetic chronic kidney disease; I13.2 Hypertensive heart and chronic kidney disease with heart failure and with stage 5 chronic kidney disease, or end stage renal disease; I50.42 Chronic combined systolic (congestive) and diastolic (congestive) heart failure; N18.6 End stage renal disease; I25.10 Atherosclerotic heart disease of native coronary artery without angina pectoris; E78.5 Hyperlipidemia, unspecified; L84 Corns and callosities; K21.9 Gastro-esophageal reflux disease without esophagitis; I48.2 Chronic atrial fibrillation; E21.3 Hyperparathyroidism, unspecified; I25.2 Old myocardial infarction; E66.9 Obesity, unspecified; Z68.32 Body mass index [BMI] 32.0-32.9, adult; Z86.73 Personal history of transient ischemic attack (TIA), and cerebral infarction without residual deficits; Z90.5 Acquired absence of kidney; Z79.4 Long term (current) use of insulin; Z99.2 Dependence on renal dialysis; Z87.891 Personal history of nicotine dependence; Z79.01 Long term (current) use of anticoagulants | CPT/HCPCS: 11042 ==

== ENCOUNTER → 2017-10-01 | Outpatient (CLI) | payer MEDICARE, BC | END | disposition home or self-care (01) | LOC: PMGWOUND 09:38 | DX: E11.621 Type 2 diabetes mellitus with foot ulcer (principal); L97.512 Non-pressure chronic ulcer of other part of right foot with fat layer exposed; I70.201 Unspecified atherosclerosis of native arteries of extremities, right leg; L97.522 Non-pressure chronic ulcer of other part of left foot with fat layer exposed; E11.51 Type 2 diabetes mellitus with diabetic peripheral angiopathy without gangrene; E11.22 Type 2 diabetes mellitus with diabetic chronic kidney disease; I13.2 Hypertensive heart and chronic kidney disease with heart failure and with stage 5 chronic kidney disease, or end stage renal disease; I50.42 Chronic combined systolic (congestive) and diastolic (congestive) heart failure; N18.6 End stage renal disease; I25.10 Atherosclerotic heart disease of native coronary artery without angina pectoris; E78.5 Hyperlipidemia, unspecified; L84 Corns and callosities; K21.9 Gastro-esophageal reflux disease without esophagitis; I48.2 Chronic atrial fibrillation; E21.3 Hyperparathyroidism, unspecified; I25.2 Old myocardial infarction; E66.9 Obesity, unspecified; Z68.32 Body mass index [BMI] 32.0-32.9, adult; Z86.73 Personal history of transient ischemic attack (TIA), and cerebral infarction without residual deficits; Z90.5 Acquired absence of kidney; Z79.4 Long term (current) use of insulin; Z99.2 Dependence on renal dialysis; Z87.891 Personal history of nicotine dependence; Z79.01 Long term (current) use of anticoagulants | CPT/HCPCS: 11042 ==

== ENCOUNTER → 2017-10-15 | Outpatient (CLI) | payer MEDICARE, BC | END | disposition home or self-care (01) | LOC: PMGWOUND 09:35 | DX: E11.621 Type 2 diabetes mellitus with foot ulcer (principal); L97.512 Non-pressure chronic ulcer of other part of right foot with fat layer exposed; I70.201 Unspecified atherosclerosis of native arteries of extremities, right leg; L97.522 Non-pressure chronic ulcer of other part of left foot with fat layer exposed; E11.51 Type 2 diabetes mellitus with diabetic peripheral angiopathy without gangrene; E11.22 Type 2 diabetes mellitus with diabetic chronic kidney disease; I13.2 Hypertensive heart and chronic kidney disease with heart failure and with stage 5 chronic kidney disease, or end stage renal disease; I50.42 Chronic combined systolic (congestive) and diastolic (congestive) heart failure; N18.6 End stage renal disease; I25.10 Atherosclerotic heart disease of native coronary artery without angina pectoris; E78.5 Hyperlipidemia, unspecified; L84 Corns and callosities; K21.9 Gastro-esophageal reflux disease without esophagitis; I48.2 Chronic atrial fibrillation; E21.3 Hyperparathyroidism, unspecified; I25.2 Old myocardial infarction; E66.9 Obesity, unspecified; Z68.32 Body mass index [BMI] 32.0-32.9, adult; Z86.73 Personal history of transient ischemic attack (TIA), and cerebral infarction without residual deficits; Z90.5 Acquired absence of kidney; Z79.4 Long term (current) use of insulin; Z87.891 Personal history of nicotine dependence; Z79.01 Long term (current) use of anticoagulants | CPT/HCPCS: 11042 ==

== ENCOUNTER → 2017-10-29 | Outpatient (CLI) | payer MEDICARE, BC | END | disposition home or self-care (01) | LOC: PMGWOUND 09:42 | DX: E11.621 Type 2 diabetes mellitus with foot ulcer (principal); L97.512 Non-pressure chronic ulcer of other part of right foot with fat layer exposed; I70.201 Unspecified atherosclerosis of native arteries of extremities, right leg; L97.522 Non-pressure chronic ulcer of other part of left foot with fat layer exposed; E11.51 Type 2 diabetes mellitus with diabetic peripheral angiopathy without gangrene; E11.22 Type 2 diabetes mellitus with diabetic chronic kidney disease; I13.2 Hypertensive heart and chronic kidney disease with heart failure and with stage 5 chronic kidney disease, or end stage renal disease; I50.42 Chronic combined systolic (congestive) and diastolic (congestive) heart failure; N18.6 End stage renal disease; I25.10 Atherosclerotic heart disease of native coronary artery without angina pectoris; E78.5 Hyperlipidemia, unspecified; L84 Corns and callosities; K21.9 Gastro-esophageal reflux disease without esophagitis; I48.2 Chronic atrial fibrillation; E21.3 Hyperparathyroidism, unspecified; I25.2 Old myocardial infarction; E66.9 Obesity, unspecified; Z68.32 Body mass index [BMI] 32.0-32.9, adult; Z86.73 Personal history of transient ischemic attack (TIA), and cerebral infarction without residual deficits; Z90.5 Acquired absence of kidney; Z79.4 Long term (current) use of insulin; Z87.891 Personal history of nicotine dependence; Z79.01 Long term (current) use of anticoagulants | CPT/HCPCS: 11042 ==

== ENCOUNTER → 2017-11-12 | Outpatient (CLI) | payer MEDICARE, BC | END | disposition home or self-care (01) | LOC: PMGWOUND 09:46 | DX: E11.621 Type 2 diabetes mellitus with foot ulcer (principal); L97.512 Non-pressure chronic ulcer of other part of right foot with fat layer exposed; I70.201 Unspecified atherosclerosis of native arteries of extremities, right leg; L97.522 Non-pressure chronic ulcer of other part of left foot with fat layer exposed; E11.51 Type 2 diabetes mellitus with diabetic peripheral angiopathy without gangrene; E11.22 Type 2 diabetes mellitus with diabetic chronic kidney disease; I13.2 Hypertensive heart and chronic kidney disease with heart failure and with stage 5 chronic kidney disease, or end stage renal disease; I50.42 Chronic combined systolic (congestive) and diastolic (congestive) heart failure; N18.6 End stage renal disease; I25.10 Atherosclerotic heart disease of native coronary artery without angina pectoris; E78.5 Hyperlipidemia, unspecified; L84 Corns and callosities; K21.9 Gastro-esophageal reflux disease without esophagitis; I48.2 Chronic atrial fibrillation; E21.3 Hyperparathyroidism, unspecified; I25.2 Old myocardial infarction; E66.9 Obesity, unspecified; Z68.32 Body mass index [BMI] 32.0-32.9, adult; Z86.73 Personal history of transient ischemic attack (TIA), and cerebral infarction without residual deficits; Z90.5 Acquired absence of kidney; Z79.4 Long term (current) use of insulin; Z87.891 Personal history of nicotine dependence; Z79.01 Long term (current) use of anticoagulants | CPT/HCPCS: 11042 ==

== ENCOUNTER → 2017-11-26 | Outpatient (CLI) | payer MEDICARE, BC | END | disposition home or self-care (01) | LOC: PMGWOUND 09:39 | DX: E11.621 Type 2 diabetes mellitus with foot ulcer (principal); L97.512 Non-pressure chronic ulcer of other part of right foot with fat layer exposed; L97.522 Non-pressure chronic ulcer of other part of left foot with fat layer exposed; I70.201 Unspecified atherosclerosis of native arteries of extremities, right leg; I25.10 Atherosclerotic heart disease of native coronary artery without angina pectoris; I48.2 Chronic atrial fibrillation; K21.9 Gastro-esophageal reflux disease without esophagitis; E78.5 Hyperlipidemia, unspecified; E21.3 Hyperparathyroidism, unspecified; E66.9 Obesity, unspecified; I25.2 Old myocardial infarction; E11.51 Type 2 diabetes mellitus with diabetic peripheral angiopathy without gangrene; E11.22 Type 2 diabetes mellitus with diabetic chronic kidney disease; I13.2 Hypertensive heart and chronic kidney disease with heart failure and with stage 5 chronic kidney disease, or end stage renal disease; N18.6 End stage renal disease; I50.42 Chronic combined systolic (congestive) and diastolic (congestive) heart failure; Z87.891 Personal history of nicotine dependence; Z86.73 Personal history of transient ischemic attack (TIA), and cerebral infarction without residual deficits; Z79.4 Long term (current) use of insulin; Z79.01 Long term (current) use of anticoagulants; Z68.32 Body mass index [BMI] 32.0-32.9, adult; Z99.2 Dependence on renal dialysis | CPT/HCPCS: 11042 ==

== ENCOUNTER → 2017-12-10 | Outpatient (CLI) | payer MEDICARE, BC | END | disposition home or self-care (01) | LOC: PMGWOUND 09:40 | DX: E11.621 Type 2 diabetes mellitus with foot ulcer (principal); L97.512 Non-pressure chronic ulcer of other part of right foot with fat layer exposed; L97.522 Non-pressure chronic ulcer of other part of left foot with fat layer exposed; I70.201 Unspecified atherosclerosis of native arteries of extremities, right leg; I25.10 Atherosclerotic heart disease of native coronary artery without angina pectoris; I48.2 Chronic atrial fibrillation; K21.9 Gastro-esophageal reflux disease without esophagitis; E78.5 Hyperlipidemia, unspecified; E21.3 Hyperparathyroidism, unspecified; E66.9 Obesity, unspecified; I25.2 Old myocardial infarction; E11.51 Type 2 diabetes mellitus with diabetic peripheral angiopathy without gangrene; E11.22 Type 2 diabetes mellitus with diabetic chronic kidney disease; I13.2 Hypertensive heart and chronic kidney disease with heart failure and with stage 5 chronic kidney disease, or end stage renal disease; N18.6 End stage renal disease; I50.42 Chronic combined systolic (congestive) and diastolic (congestive) heart failure; Z87.891 Personal history of nicotine dependence; Z86.73 Personal history of transient ischemic attack (TIA), and cerebral infarction without residual deficits; Z79.4 Long term (current) use of insulin; Z79.01 Long term (current) use of anticoagulants; Z68.32 Body mass index [BMI] 32.0-32.9, adult; Z99.2 Dependence on renal dialysis; L84 Corns and callosities | CPT/HCPCS: 11042 ==

== ENCOUNTER → 2017-12-24 | Outpatient (CLI) | payer MEDICARE, BC ==
[2017-06-06 15:00] VITALS: BP 133/59
[~2017-12-24] MED LIST changes: +ATOR20TA58 PO; +CARV6.25 PO; +CEFP100T PO; +FERR325T14 PO; +FURO-68 PO; +LACT1CAP19 PO; +SEVE800T9 PO
== END | disposition home or self-care (01) ==
LOC: PMGWOUND 09:59
PROVIDERS: ATTEND Emergency Medicine Undersea and Hyperbaric Medicine
DX: E11.621 Type 2 diabetes mellitus with foot ulcer (principal); L97.512 Non-pressure chronic ulcer of other part of right foot with fat layer exposed; I13.2 Hypertensive heart and chronic kidney disease with heart failure and with stage 5 chronic kidney disease, or end stage renal disease; E11.22 Type 2 diabetes mellitus with diabetic chronic kidney disease; N18.6 End stage renal disease; I50.42 Chronic combined systolic (congestive) and diastolic (congestive) heart failure; I25.10 Atherosclerotic heart disease of native coronary artery without angina pectoris; E11.51 Type 2 diabetes mellitus with diabetic peripheral angiopathy without gangrene; I25.2 Old myocardial infarction; I48.2 Chronic atrial fibrillation; E21.3 Hyperparathyroidism, unspecified; E78.5 Hyperlipidemia, unspecified; I70.201 Unspecified atherosclerosis of native arteries of extremities, right leg; L84 Corns and callosities; M10.9 Gout, unspecified; K21.9 Gastro-esophageal reflux disease without esophagitis; E66.8 Other obesity; Z68.32 Body mass index [BMI] 32.0-32.9, adult; Z79.01 Long term (current) use of anticoagulants; Z79.4 Long term (current) use of insulin; Z87.891 Personal history of nicotine dependence; Z99.2 Dependence on renal dialysis; Z86.73 Personal history of transient ischemic attack (TIA), and cerebral infarction without residual deficits
CPT/HCPCS: 11042

== ENCOUNTER → 2017-12-31 | Outpatient (CLI) | payer MEDICARE, BC ==
[2017-06-06 15:00] VITALS: BP 133/59
== END | disposition home or self-care (01) ==
LOC: PMGWOUND 10:06
PROVIDERS: ATTEND Emergency Medicine Undersea and Hyperbaric Medicine
DX: E11.621 Type 2 diabetes mellitus with foot ulcer (principal); L97.512 Non-pressure chronic ulcer of other part of right foot with fat layer exposed; I70.201 Unspecified atherosclerosis of native arteries of extremities, right leg; I13.2 Hypertensive heart and chronic kidney disease with heart failure and with stage 5 chronic kidney disease, or end stage renal disease; E11.22 Type 2 diabetes mellitus with diabetic chronic kidney disease; N18.6 End stage renal disease; I50.814 Right heart failure due to left heart failure; I50.42 Chronic combined systolic (congestive) and diastolic (congestive) heart failure; E11.51 Type 2 diabetes mellitus with diabetic peripheral angiopathy without gangrene; I25.10 Atherosclerotic heart disease of native coronary artery without angina pectoris; I48.2 Chronic atrial fibrillation; I25.2 Old myocardial infarction; K21.9 Gastro-esophageal reflux disease without esophagitis; E78.4 Other hyperlipidemia; E66.8 Other obesity; E03.9 Hypothyroidism, unspecified; L84 Corns and callosities; M10.9 Gout, unspecified; Z90.5 Acquired absence of kidney; Z68.32 Body mass index [BMI] 32.0-32.9, adult; Z99.2 Dependence on renal dialysis; Z79.4 Long term (current) use of insulin; Z79.01 Long term (current) use of anticoagulants; Z87.891 Personal history of nicotine dependence; Z86.73 Personal history of transient ischemic attack (TIA), and cerebral infarction without residual deficits
CPT/HCPCS: 11042; 29445

== ENCOUNTER → 2018-01-02 | Outpatient (CLI) | payer MEDICARE, BC ==
[2017-06-06 15:00] VITALS: BP 133/59
== END | disposition home or self-care (01) ==
LOC: PMGWOUND 12:08
PROVIDERS: ATTEND Emergency Medicine Undersea and Hyperbaric Medicine
DX: E11.621 Type 2 diabetes mellitus with foot ulcer (principal); L97.512 Non-pressure chronic ulcer of other part of right foot with fat layer exposed; I70.201 Unspecified atherosclerosis of native arteries of extremities, right leg; I13.2 Hypertensive heart and chronic kidney disease with heart failure and with stage 5 chronic kidney disease, or end stage renal disease; E11.22 Type 2 diabetes mellitus with diabetic chronic kidney disease; N18.6 End stage renal disease; I50.814 Right heart failure due to left heart failure; I50.42 Chronic combined systolic (congestive) and diastolic (congestive) heart failure; E11.51 Type 2 diabetes mellitus with diabetic peripheral angiopathy without gangrene; K21.9 Gastro-esophageal reflux disease without esophagitis; I25.2 Old myocardial infarction; M10.9 Gout, unspecified; E03.9 Hypothyroidism, unspecified; I48.2 Chronic atrial fibrillation; E78.4 Other hyperlipidemia; I25.10 Atherosclerotic heart disease of native coronary artery without angina pectoris; E21.3 Hyperparathyroidism, unspecified; N28.89 Other specified disorders of kidney and ureter; N40.1 Benign prostatic hyperplasia with lower urinary tract symptoms; L84 Corns and callosities; E66.8 Other obesity; Z68.32 Body mass index [BMI] 32.0-32.9, adult; Z90.5 Acquired absence of kidney; Z99.2 Dependence on renal dialysis; Z79.4 Long term (current) use of insulin; Z79.01 Long term (current) use of anticoagulants; Z87.891 Personal history of nicotine dependence; Z86.73 Personal history of transient ischemic attack (TIA), and cerebral infarction without residual deficits
CPT/HCPCS: 29445

== ENCOUNTER → 2018-01-07 | Outpatient (CLI) | payer MEDICARE, BC ==
[2017-06-06 15:00] VITALS: BP 133/59
[~2018-01-07] MED LIST changes: +CALC500T30 PO; +CHOL200074 PO; +FOLI0.8T21 PO; +LOPE2TAB27 PO; -LOSA100T6 PO; +LOSA100T7 PO; +METO-247 PO; +TAMS0.4C2 PO
== END | disposition home or self-care (01) ==
LOC: PMGWOUND 11:43
PROVIDERS: ATTEND Emergency Medicine Undersea and Hyperbaric Medicine
DX: E11.621 Type 2 diabetes mellitus with foot ulcer (principal); L97.512 Non-pressure chronic ulcer of other part of right foot with fat layer exposed; I70.201 Unspecified atherosclerosis of native arteries of extremities, right leg; I13.2 Hypertensive heart and chronic kidney disease with heart failure and with stage 5 chronic kidney disease, or end stage renal disease; E11.22 Type 2 diabetes mellitus with diabetic chronic kidney disease; N18.6 End stage renal disease; I50.814 Right heart failure due to left heart failure; I50.42 Chronic combined systolic (congestive) and diastolic (congestive) heart failure; E11.51 Type 2 diabetes mellitus with diabetic peripheral angiopathy without gangrene; K21.9 Gastro-esophageal reflux disease without esophagitis; I25.10 Atherosclerotic heart disease of native coronary artery without angina pectoris; I48.2 Chronic atrial fibrillation; E21.3 Hyperparathyroidism, unspecified; E03.9 Hypothyroidism, unspecified; I25.2 Old myocardial infarction; E78.4 Other hyperlipidemia; L84 Corns and callosities; M10.9 Gout, unspecified; F10.19 Alcohol abuse with unspecified alcohol-induced disorder; E66.01 Morbid (severe) obesity due to excess calories; Z68.32 Body mass index [BMI] 32.0-32.9, adult; Z99.2 Dependence on renal dialysis; Z90.5 Acquired absence of kidney; Z79.01 Long term (current) use of anticoagulants; Z79.4 Long term (current) use of insulin; Z86.73 Personal history of transient ischemic attack (TIA), and cerebral infarction without residual deficits; Z87.891 Personal history of nicotine dependence; Y90.9 Presence of alcohol in blood, level not specified
CPT/HCPCS: 11042; 29445

== ENCOUNTER 2018-01-12 17:24 | Inpatient (IN) | payer MEDICARE, BC ==
[~2018-01-12] VITALS: Ht 182.9 cm; Wt 108.2 kg
[~2018-01-12 17:24] MED LIST changes: -CALC500T30 PO; -CHOL200074 PO; -FOLI0.8T21 PO; -LOPE2TAB27 PO; -METO-247 PO; -TAMS0.4C2 PO
--- NOTE | 2018-01-12 17:52 | PHYS DOC ---
Past Medical History Past Medical History: A-Fib, Diabetes-Type II, Hypertension, Renal Failure, Other Additional Past Medical Histor: cancer kidney Past Surgical History: Other Additional Past Surgical Histo: Dialysis Right Chest, l nephrectomy, av shunt l arm Alcohol Use: None Drug Use: None Adult General Chief Complaint Chief Complaint: FEVER HPI HPI Patient is a 72 year old male who presents with nausea, vomiting, diarrhea since Saturday and patient is also been febrile. He states when he went to stand up today that he became dizzy and has lack of appetite. Patient came in by EMS and was given 4 mg of Zofran IV per EMS. Patient states that he has not sure but does not think he has been on any kind of antibiotics recently. Patient has a wound one of his left toes which she sees wound care for. The foot is casted in order to help the wound heal more appropriately. Apparently every time the patient was walking with reopen. Patient temperature is 99.3 here in the ED. EMS stated in the ambulance that his fever was 100.4. Patient denies having any cough or respiratory symptoms. Patient denies any urinary symptoms. Review of Systems Review of Systems Constitutional: Fever or chills [] Eyes: Denies change in visual acuity, redness, or eye pain [] HENT: Denies nasal congestion or sore throat [] Respiratory: Denies cough or shortness of breath [] Cardiovascular: No additional information not addressed in HPI [] GI: Epigastric abdominal pain, nausea, vomiting, and diarrhea. Denies bloody stools. [] : Denies dysuria or hematuria [] Musculoskeletal: Denies back pain or joint pain [] Integument: Denies rash or skin lesions [] Neurologic: Denies headache, focal weakness or sensory changes [] Endocrine: Denies polyuria or polydipsia [] All other systems were reviewed and found to be within normal limits, except as documented in this note. Current Medications Current Medications Current Medications Medications (Trade) Dose Ordered Sig/Esperanza Start Time Stop Time Status Last Admin Dose Admin Piperacillin Sod/ Tazobactam Sod (Zosyn Per Pharmacy) 1 each PRN DAILY PRN 01/12/18 19:15 UNV Piperacillin Sod/ Tazobactam Sod 2.25 gm/Sodium Chloride 50 ml @ 100 mls/hr 1X ONCE 01/12/18 19:30 01/12/18 19:59 Vancomycin HCl (Vanco Per Pharmacy) 1 each PRN DAILY PRN 01/12/18 19:15 UNV Vancomycin HCl 2 gm/Sodium Chloride 500 ml @ 250 mls/hr 1X ONCE 01/12/18 20:00 01/12/18 21:59 Allergies Allergies Allergies Coded Allergies Type Severity Reaction Last Updated Verified lisinopril Adverse Reaction Intermediate Cough 12/27/16 Yes Physical Exam Physical Exam Constitutional: Well developed, well nourished, no acute distress, non-toxic appearance. [] HENT: Normocephalic, atraumatic, bilateral external ears normal, oropharynx moist, no oral exudates, nose normal. [] Eyes: PERRLA, EOMI, conjunctiva normal, no discharge. [] Neck: Normal range of motion, no tenderness, supple, no stridor. [] Cardiovascular:Heart rate regular rhythm, no murmur [] Lungs & Thorax: Bilateral breath sounds clear to auscultation [] Abdomen: Bowel sounds normal, soft, Epigastric tenderness, no masses, no pulsatile masses. [] Skin: Warm, dry, no erythema, no rash. [] Back: No tenderness, no CVA tenderness. [] Extremities: No tenderness, no cyanosis, no clubbing, ROM intact, no edema. [] Neurologic: Alert and oriented X 3, Slightly altered or lethargic but un aware of baseline. normal motor function, normal sensory function, no focal deficits noted. [] Psychologic: Affect normal, judgement normal, mood normal. [] Current Patient Data Vital Signs Vital Signs Date Time Temp Pulse Resp B/P (MAP) Pulse Ox O2 Delivery O2 Flow Rate FiO2 01/12/18 17:37 99.7 89 20 143/78 (99) 100 Nasal Cannula 2.0 99.7 Lab Values Laboratory Tests Test 01/12/18 18:05 White Blood Count 14.1 x10^3/uL (4.0-11.0) H Red Blood Count 3.51 x10^6/uL (4.30-5.70) L Hemoglobin 12.0 g/dL (13.0-17.5) L Hematocrit 35.1 % (39.0-53.0) L Mean Corpuscular Volume 100 fL (79-100) Mean Corpuscular Hemoglobin 34 pg (25-35) Mean Corpuscular Hemoglobin Concent 34 g/dL (31-37) Red Cell Distribution Width 13.4 % (11.5-14.5) Platelet Count 123 x10^3/uL (140-400) L Neutrophils (%) (Auto) 92 % (31-73) H Lymphocytes (%) (Auto) 2 % (24-48) L Monocytes (%) (Auto) 5 % (0-9) Eosinophils (%) (Auto) 0 % (0-3) Basophils (%) (Auto) 1 % (0-3) Neutrophils # (Auto) 13.0 x10^3uL (1.8-7.7) H Lymphocytes # (Auto) 0.3 x10^3/uL (1.0-4.8) L Monocytes # (Auto) 0.7 x10^3/uL (0.0-1.1) Eosinophils # (Auto) 0.0 x10^3/uL (0.0-0.7) Basophils # (Auto) 0.1 x10^3/uL (0.0-0.2) Segmented Neutrophils % 81 % (35-66) H Band Neutrophils % 7 % (0-9) Lymphocytes % 5 % (24-48) L Monocytes % 7 % (0-10) Platelet Estimate Decreased (ADEQUATE) Sodium Level 135 mmol/L (136-145) L Potassium Level 4.3 mmol/L (3.5-5.1) Chloride Level 94 mmol/L (98-107) L Carbon Dioxide Level 31 mmol/L (21-32) Anion Gap 10 (6-14) Blood Urea Nitrogen 73 mg/dL (8-26) H Creatinine 8.4 mg/dL (0.7-1.3) H Estimated GFR (Cockcroft-Gault) 6.3 BUN/Creatinine Ratio 9 (6-20) Glucose Level 209 mg/dL (70-99) H Lactic Acid Level 2.7 mmol/L (0.4-2.0) H Calcium Level 8.8 mg/dL (8.5-10.1) Total Bilirubin 0.9 mg/dL (0.2-1.0) Aspartate Amino Transferase (AST) 11 U/L (15-37) L Alanine Aminotransferase (ALT) 25 U/L (16-63) Alkaline Phosphatase 123 U/L (46-116) H Troponin I Quantitative 0.047 ng/mL (0.000-0.055) PL-Liq-U-Type Natriuretic Peptide 95227 pg/mL (0-124) H Total Protein 7.8 g/dL (6.4-8.2) Albumin 3.8 g/dL (3.4-5.0) Albumin/Globulin Ratio 1.0 (1.0-1.7) Lipase 101 U/L (73-393) Laboratory Tests 01/12/18 18:05 Laboratory Tests 01/12/18 18:05 EKG EKG Irregular rhythm, no STEMI[] Interpretation Time: [address] Benson Radiology/Procedures Radiology/Procedures CT chest, abdomen, pelvis. Impressions: [facility] [address] [place], [place] [id number] IMAGING REPORT Signed PATIENT: DOROTHEA PUGA ACCOUNT: [id number] : 1945 LOCATION: ER AGE: 72 SEX: M EXAM STATUS: REG ER ORD. PHYSICIAN: JOSE PAREDES APRN REASON: Fever, Vomting PROCEDURE: CT CHEST ABDOMEN PELVIS WO Examination: CT of the chest abdomen pelvis without contrast HISTORY: History of fever, vomiting on dialysis COMPARISON: CT chest from 03/03/2005 TECHNIQUE: Axial CT images of the chest abdomen pelvis were performed without contrast. Coronal and sagittal reformats are performed Exposure: One or more of the following individualized dose reduction techniques were utilized for this examination: 1. Automated exposure control 2. Adjustment of the mA and/or kV according to patient size 3. Use of iterative reconstruction technique FINDINGS: The central airways are patent. Small subcentimeter mediastinal lymph nodes identified with the largest measuring 9 mm in the pretracheal region. Mild cardiomegaly. Coronary artery calcifications. There is a 4 mm nodule identified in the left lingula of the lung. No evidence of pleural effusion or pneumothorax. Mild left lung base airspace opacity likely atelectasis or infiltrate. The visualized noncontrasted liver, adrenals grossly appears unremarkable. Calcified granulomas identified in the spleen. The gallbladder is mildly distended probable tiny gallstone or polyp measuring 3 mm identified in the gallbladder. The stomach is mildly distended. The visualized pancreas grossly appears unremarkable. The small bowel is nondilated. Appendix is normal. Feces and gas noted in the colon. Few sigmoid colon diverticulosis. Minimal amount of fluid identified in the pelvis. Urinary bladder is mildly distended. The left kidney is not identified. Multiple cystic structures identified in the right kidney the largest measuring 9 mm. Moderate aortic atherosclerosis. Severe degenerative changes thoracic and lumbar spine. IMPRESSION: 1. Mild left lung base airspace opacities likely atelectasis or infiltrate. 2. Absent left kidney. 3. Mild sigmoid colon diverticulosis. Minimal amount of free fluid identified in the pelvis, nonspecific. 4. Cystic structure identified in the right kidney could be cysts or cystic lesions. 5. Tiny 3 mm density identified in the gallbladder could be polyp or stone. 6. 4 mm nodule identified in the left lingula. Follow-up effusions articulates with follow-up CT chest in 6 months. Electronically signed by: William Roberts MD (01/12/2018 6:42 PM) [facility] DICTATED and SIGNED BY: WILLIAM ROBERTS MD DATE: 01/12/181832 Course & Med Decision Making Course & Med Decision Making Patient is a 72 year old male who presents with nausea, vomiting, diarrhea since Saturday and patient is also been febrile. He states when he went to stand up today that he became dizzy and has lack of appetite. Patient came in by EMS and was given 4 mg of Zofran IV per EMS. Patient states that he has not sure but does not think he has been on any kind of antibiotics recently. Patient has a wound one of his left toes which she sees wound care for. The foot is casted in order to help the wound heal more appropriately. Apparently every time the patient was walking with reopen. Patient temperature is 99.3 here in the ED. EMS stated in the ambulance that his fever was 100.4. Patient denies having any cough or respiratory symptoms. Patient denies any urinary symptoms. Upon examination patient's lungs are diminished in all lobes but are without wheezes , crackles also or rales. Patient denies having a cough. Upon examination of the abdomen patient has epigastric abdominal tenderness only and patient states it does not radiate anywhere. Abdomen is soft with no masses. Patient has no other wounds. Patient denies having any kind of body aches, shortness of air, or chest pain. Patient is hard of hearing and seems to be very lethargic. I am unsure of the patient's normal mental status baseline. EMS states that is on her way up and I will ask more questions. Patient does answer my questions but seems unsure of his answers. EMS states that the patient does not usually wear oxygen but he was sating at 92% and they applied 2 L of oxygen to get him up to 94% to 95%. CT chest, abdomen, and pelvis show 1. Mild left lung base airspace opacities likely atelectasis or infiltrate. 2. Absent left kidney. 3. Mild sigmoid colon diverticulosis. Minimal amount of free fluid identified in the pelvis, nonspecific. 4. Cystic structure identified in the right kidney could be cysts or cystic lesions. 5. Tiny 3 mm density identified in the gallbladder could be polyp or stone. 6. 4 mm nodule identified in the left lingula. Follow-up effusions articulates with follow-up CT chest in 6 months. Patient to be admitted for IV antibiotics for possible pneumonia consistent with CT results. Patients WBC is 14.1 and Lactic acid is 2.7. Patient was accepted for admission by Dr Rodriguez. [] Dragon Disclaimer Dragon Disclaimer This electronic medical record was generated, in whole or in part, using a voice recognition dictation system. Departure Departure Impression: Primary Impression: Pneumonia Disposition: ADMITTED INPATIENT Admitting Physician: Zackery Rodriguez Condition: STABLE Referrals: ANNALISA GARCIA (PCP) Problem Qualifiers Primary Impression: Pneumonia Pneumonia type: due to unspecified organism Laterality: bilateral Lung location: unspecified part of lung Qualified Codes: J18.9 - Pneumonia, unspecified organism JOSE PAREDES ORGAN BUILDER Jan 12, 2018 17:52
[2018-01-12 18:26] LABS: BASO # 0.1 x10^3/uL (0.0-0.2); BASO % 1 % (0-3); EOS % 0 % (0-3); HEMATOCRIT 35.1 % (39.0-53.0); LYMPH # 0.3 x10^3/uL (1.0-4.8); LYMPH % 2 % (24-48); MEAN CORPUSCULAR HEMOGLOBIN 34 pg (25-35); MEAN CORPUSCULAR HGB CONC 34 g/dL (31-37); MEAN CORPUSCULAR VOLUME 100 fL (79-100); MONO # 0.7 x10^3/uL (0.0-1.1); MONO % 5 % (0-9); NEUT % 92 % (31-73); PLATELET COUNT 123 x10^3/uL (140-400); RED BLOOD COUNT 3.51 x10^6/uL (4.30-5.70); RED CELL DISTRIBUTION WIDTH 13.4 % (11.5-14.5); WHITE BLOOD COUNT 14.1 x10^3/uL (4.0-11.0)
[2018-01-12 18:32] LABS: CALCIUM 8.8 mg/dL (8.5-10.1); CREATININE 8.4 mg/dL (0.7-1.3); GFR 6.3; POTASSIUM 4.3 mmol/L (3.5-5.1)
--- NOTE | 2018-01-12 18:44 | RAD ---
Examination: CT of the chest abdomen pelvis without contrast HISTORY: History of fever, vomiting on dialysis COMPARISON: CT chest from 03/03/2005 TECHNIQUE: Axial CT images of the chest abdomen pelvis were performed without contrast. Coronal and sagittal reformats are performed Exposure: One or more of the following individualized dose reduction techniques were utilized for this examination: 1. Automated exposure control 2. Adjustment of the mA and/or kV according to patient size 3. Use of iterative reconstruction technique FINDINGS: The central airways are patent. Small subcentimeter mediastinal lymph nodes identified with the largest measuring 9 mm in the pretracheal region. Mild cardiomegaly. Coronary artery calcifications. There is a 4 mm nodule identified in the left lingula of the lung. No evidence of pleural effusion or pneumothorax. Mild left lung base airspace opacity likely atelectasis or infiltrate. The visualized noncontrasted liver, adrenals grossly appears unremarkable. Calcified granulomas identified in the spleen. The gallbladder is mildly distended probable tiny gallstone or polyp measuring 3 mm identified in the gallbladder. The stomach is mildly distended. The visualized pancreas grossly appears unremarkable. The small bowel is nondilated. Appendix is normal. Feces and gas noted in the colon. Few sigmoid colon diverticulosis. Minimal amount of fluid identified in the pelvis. Urinary bladder is mildly distended. The left kidney is not identified. Multiple cystic structures identified in the right kidney the largest measuring 9 mm. Moderate aortic atherosclerosis. Severe degenerative changes thoracic and lumbar spine. IMPRESSION: 1. Mild left lung base airspace opacities likely atelectasis or infiltrate. 2. Absent left kidney. 3. Mild sigmoid colon diverticulosis. Minimal amount of free fluid identified in the pelvis, nonspecific. 4. Cystic structure identified in the right kidney could be cysts or cystic lesions. 5. Tiny 3 mm density identified in the gallbladder could be polyp or stone. 6. 4 mm nodule identified in the left lingula. Follow-up effusions articulates with follow-up CT chest in 6 months. Electronically signed by: William Roberts MD (01/12/2018 6:42 PM) [facility]
[2018-01-12 18:46] LABS: ALBUMIN 3.8 g/dL (3.4-5.0); TOTAL BILIRUBIN 0.9 mg/dL (0.2-1.0); TOTAL PROTEIN 7.8 g/dL (6.4-8.2)
[2018-01-12 19:11] LABS: % BANDS 7 % (0-9); % LYMPHS 5 % (24-48); % MONOS 7 % (0-10); % SEGS 81 % (35-66); PLT ESTIMATE DECREASED (ADEQUATE)
[2018-01-12] MEDS ORDERED: PIP/TAZO PER PHARMACY MC PRN (19:15)
[2018-01-12] MEDS ORDERED: PIPERACILLIN/TAZOBACTAM 2.25 GM in IV NORMAL SALINE 50ML 50 ML IV ONE (19:30)
[2018-01-12] MEDS ORDERED: ONDANSETRON PF 4 MG/2 ML VIAL. IV PRN (19:30)
[2018-01-12] MEDS ORDERED: VANCOMYCIN 2 GM in IV NORMAL SALINE 500ML BAG 500 ML IV ONE (20:00)
[2018-01-12] MEDS: VANCOMYCIN PER PHARMACY MC PRN (20:25)
[2018-01-12] MEDS: PIPERACILLIN/TAZOBACTAM 2.25 GM in IV NORMAL SALINE 50ML 50 ML IV SCH (23:35)
[2018-01-12 23:47] VITALS: BP 118/47
[2018-01-13 03:00] VITALS: BP 107/47
[2018-01-13] MEDS: PIPERACILLIN/TAZOBACTAM 2.25 GM in IV NORMAL SALINE 50ML 50 ML IV SCH ×4 (05:25→22:46)
[2018-01-13 07:00] VITALS: BP 103/50
[2018-01-13] MEDS ORDERED: traMADol 50 MG TABLET PO PRN (08:45)
[2018-01-13] MEDS ORDERED: ACETAMINOPHEN 325 MG TABLET. PO PRN (08:45)
[2018-01-13] MEDS ORDERED: DEXTROSE 50% 25 GM / 50ML DISP.SYRIN. IV PRN (08:45)
[2018-01-13] MEDS ORDERED: MORPHINE SULFATE 2 MG/ML VIAL. IV PRN (08:45)
[2018-01-13] MEDS ORDERED: DOCUSATE SODIUM 100 MG CAPSULE. PO PRN (08:45)
[2018-01-13] MEDS ORDERED: ONDANSETRON PF 4 MG/2 ML VIAL. IV PRN (08:45)
[2018-01-13] MEDS: APIXABAN 5 MG TABLET. PO SCH ×2 (09:00→20:42)
[2018-01-13] MEDS: CARVEDILOL 6.25 MG TABLET. PO SCH ×2 (09:00→18:16)
[2018-01-13] MEDS: FERROUS SULFATE 325 MG TABLET. PO SCH ×3 (09:00→20:42)
[2018-01-13] MEDS: FUROSEMIDE 40 MG TABLET. PO SCH ×2 (09:00→14:00)
[2018-01-13] MEDS: SEVELAMER CARBONATE 800 MG TABLET. PO SCH ×3 (10:35→18:15)
[2018-01-13 10:55] VITALS: BP 108/58
[2018-01-13] MEDS: VANCOMYCIN PER PHARMACY MC PRN ×2 (10:58→15:27)
--- NOTE | 2018-01-13 10:58 | PDOC2 ---
CONSULT Date of Consult Date of Consult DATE: 01/13/18 TIME: 10:53 Reason for Consult Reason for Consult: ESRD on HD [facility] Source Source: Chart review, Patient History of Present Illness Reason for Visit: Patient is a 72 year old male who presents with nausea, vomiting, diarrhea since Saturday and patient is also been febrile.He was feeling dizzy and lack of appetite. Patient came in by EMS and was given 4 mg of Zofran IV while enroute He has a wound one of his left toes which she sees wound care for. The foot is casted. In ER had a temp of 99.3 . He denies any cough or respiratory symptoms.Denies any urinary symptoms. He goes to [facility]- Dr. Medina . Has been on HD for 2 Years Past Medical History Cardiovascular: AFIB, CAD, CHF, HTN GI: Constipation, GERD Heme/Onc: Anemia NOS Renal/: Chronic renal failure, Other Endocrine: Diabetes, Hyperparathyroidism Past Surgical History Past Surgical History: Other Family History Family History: No Significant, Hypertension Social History ALCOHOL: none Drugs: None Lives: [facility] Current Problem List Problem List Problems Medical Problems: (1) Pneumonia Status: Acute Current Medications Current Medications Current Medications Piperacillin Sod/ Tazobactam Sod (Zosyn Per Pharmacy) 1 each PRN DAILY PRN MC SEE COMMENTS; Start 01/12/18 at 19:15 Vancomycin HCl (Vanco Per Pharmacy) 1 each PRN DAILY PRN MC SEE COMMENTS Last administered on 01/12/18at 20:25; Start 01/12/18 at 19:15 Vancomycin HCl 2 gm/Sodium Chloride 500 ml @ 250 mls/hr 1X ONCE IV Last administered on 01/12/18at 20:08; Start 01/12/18 at 20:00; Stop 01/12/18 at 21:59; Status DC Piperacillin Sod/ Tazobactam Sod 2.25 gm/Sodium Chloride 50 ml @ 100 mls/hr 1X ONCE IV Last administered on 01/12/18at 19:31; Start 01/12/18 at 19:30; Stop 01/12/18 at 19:59; Status DC Ondansetron HCl (Zofran) 4 mg PRN Q8HRS PRN IV NAUSEA/VOMITING; Start 01/12/18 at 19:30; Stop 01/13/18 at 19:29 Piperacillin Sod/ Tazobactam Sod 2.25 gm/Sodium Chloride 50 ml @ 100 mls/hr Q6HRS IV Last administered on 01/13/18at 05:25; Start 01/13/18 at 00:00 Vancomycin HCl (Vancomycin Random Level) 1 each 1X ONCE MC ; Start 01/15/18 at 06:00; Stop 01/15/18 at 06:01 Acetaminophen (Tylenol) 650 mg PRN Q6HRS PRN PO FEVER; Start 01/13/18 at 08:45 Ondansetron HCl (Zofran) 4 mg PRN Q6HRS PRN IV NAUSEA/VOMITING; Start 01/13/18 at 08:45 Morphine Sulfate (Morphine Sulfate) 2 mg PRN Q2HR PRN IV MODERATE TO SEVERE PAIN; Start 01/13/18 at 08:45 Tramadol HCl (Ultram) 50 mg PRN Q6HRS PRN PO MILD TO MODERATE PAIN; Start at 08:45 Docusate Sodium (Colace) 100 mg PRN DAILY PRN PO CONSTIPATION; Start 01/13/18 at 08:45 Allopurinol (Zyloprim) 100 mg DAILY PO ; Start 01/13/18 at 09:00 Apixaban (Eliquis) 5 mg BID PO ; Start 01/13/18 at 09:00 Atorvastatin Calcium (Lipitor) 20 mg HS PO ; Start 01/13/18 at 21:00 Carvedilol (Coreg) 6.25 mg BIDWMEALS PO ; Start 01/13/18 at 09:00 Cinacalcet (Sensipar) 60 mg DAILY PO ; Start 01/13/18 at 09:00 Ferrous Sulfate (Feosol) 325 mg TID PO ; Start 01/13/18 at 09:00 Furosemide (Lasix) 40 mg BID92 PO ; Start 01/13/18 at 09:00 Sevelamer Carbonate (Renvela) 2,400 mg TIDWMEALS PO Last administered on at 10:35; Start 01/13/18 at 09:00 Insulin Glargine (Lantus) 20 units QHS SQ ; Start 01/13/18 at 21:00 Atorvastatin Calcium (Lipitor) 5 mg QHS PO ; Start 01/13/18 at 21:00 Insulin Human Lispro (HumaLOG) 0-9 UNITS TIDWMEALS SQ ; Start 01/13/18 at 12:00 Dextrose (Dextrose 50%-Water Syringe) 12.5 gm PRN Q15MIN PRN IV SEE COMMENTS; Start 01/13/18 at 08:45 Active Scripts Active Culturelle (Lactobacillus Rhamnosus Gg) 1 Each Cap.sprink 1 Cap PO BID Cefpodoxime Proxetil 100 Mg Tablet 200 Mg PO BID Allopurinol 100 Mg Tablet 100 Mg PO DAILY Novolog Flexpen (Insulin Aspart) 100 Unit/1 Ml Insuln.pen 0 Units SQ TIDWMEALS 30 Days Levemir Flextouch (Insulin Detemir) 100 Unit/1 Ml Insuln.pen 20 Units SQ QHS 30 Days Reported Renvela (Sevelamer Carbonate) 800 Mg Tablet 3 Tab PO TID Entresto 49 mg-51 mg Tablet (Sacubitril/Valsartan) 1 Each Tablet 1 Each PO Lasix (Furosemide) 40 Mg Tablet 40 Mg PO BID Sensipar (Cinacalcet Hcl) 30 Mg Tablet 60 Mg PO DAILY Eliquis (Apixaban) 5 Mg Tablet 5 Mg PO BID Ferrous Sulfate 325 Mg Tablet 1 Tab PO TID Coreg (Carvedilol) 6.25 Mg Tablet 1 Tab PO BID Atorvastatin Calcium 20 Mg Tablet 20 Mg PO HS Pravastatin Sodium 20 Mg Tablet 20 Mg PO DAILY Allergies Allergies: Coded Allergies: nut - unspecified (Verified Allergy, Intermediate, 01/13/18) lisinopril (Verified Adverse Reaction, Intermediate, Cough, 12/27/16) ROS Review of System As per HPI Physical Exam Physical Exam GEN: NAD HENT : Om Moist, On RA NECK: No JVD, supple CVS: RRR RESP: Few Crackles bases GI: BS + ve, NO Bruit, Non Tender, Non Distended : No CVA or SP tenderness, No Holland Skin No rash Ext- Lt Arm AV access Neuro- AxO x3 Vital Signs Vital Signs Date Time Temp Pulse Resp B/P (MAP) Pulse Ox O2 Delivery O2 Flow Rate FiO2 01/13/18 07:00 97.8 66 20 103/50 (67) 99 Nasal Cannula 2.0 97.8 Assessment & Plan ESRD- MWF Dialysis Today as Ordered ISABELLE SMILEY Bilat Pl effusion CHF 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 Labs Laboratory Tests Test 01/12/18 18:05 01/13/18 07:46 White Blood Count 14.1 x10^3/uL (4.0-11.0) Red Blood Count 3.51 x10^6/uL (4.30-5.70) Hemoglobin 12.0 g/dL (13.0-17.5) Hematocrit 35.1 % (39.0-53.0) Mean Corpuscular Volume 100 fL (79-100) Mean Corpuscular Hemoglobin 34 pg (25-35) Mean Corpuscular Hemoglobin Concent 34 g/dL (31-37) Red Cell Distribution Width 13.4 % (11.5-14.5) Platelet Count 123 x10^3/uL (140-400) Neutrophils (%) (Auto) 92 % (31-73) Lymphocytes (%) (Auto) 2 % (24-48) Monocytes (%) (Auto) 5 % (0-9) Eosinophils (%) (Auto) 0 % (0-3) Basophils (%) (Auto) 1 % (0-3) Neutrophils # (Auto) 13.0 x10^3uL (1.8-7.7) Lymphocytes # (Auto) 0.3 x10^3/uL (1.0-4.8) Monocytes # (Auto) 0.7 x10^3/uL (0.0-1.1) Eosinophils # (Auto) 0.0 x10^3/uL (0.0-0.7) Basophils # (Auto) 0.1 x10^3/uL (0.0-0.2) Segmented Neutrophils % 81 % (35-66) Band Neutrophils % 7 % (0-9) Lymphocytes % 5 % (24-48) Monocytes % 7 % (0-10) Platelet Estimate Decreased (ADEQUATE) Erythrocyte Sedimentation Rate 38 (0-15) Sodium Level 135 mmol/L (136-145) Potassium Level 4.3 mmol/L (3.5-5.1) Chloride Level 94 mmol/L (98-107) Carbon Dioxide Level 31 mmol/L (21-32) Anion Gap 10 (6-14) Blood Urea Nitrogen 73 mg/dL (8-26) Creatinine 8.4 mg/dL (0.7-1.3) Estimated GFR (Cockcroft-Gault) 6.3 BUN/Creatinine Ratio 9 (6-20) Glucose Level 209 mg/dL (70-99) Lactic Acid Level 2.7 mmol/L (0.4-2.0) Calcium Level 8.8 mg/dL (8.5-10.1) Total Bilirubin 0.9 mg/dL (0.2-1.0) Aspartate Amino Transf (AST/SGOT) 11 U/L (15-37) Alanine Aminotransferase (ALT/SGPT) 25 U/L (16-63) Alkaline Phosphatase 123 U/L (46-116) Troponin I Quantitative 0.047 ng/mL (0.000-0.055) AJ-Ciw-U-Type Natriuretic Peptide 38372 pg/mL (0-124) Total Protein 7.8 g/dL (6.4-8.2) Albumin 3.8 g/dL (3.4-5.0) Albumin/Globulin Ratio 1.0 (1.0-1.7) Lipase 101 U/L (73-393) Glucose (Fingerstick) 142 mg/dL (70-99) Laboratory Tests Test 01/12/18 18:05 01/13/18 07:46 White Blood Count 14.1 x10^3/uL (4.0-11.0) Red Blood Count 3.51 x10^6/uL (4.30-5.70) Hemoglobin 12.0 g/dL (13.0-17.5) Hematocrit 35.1 % (39.0-53.0) Mean Corpuscular Volume 100 fL (79-100) Mean Corpuscular Hemoglobin 34 pg (25-35) Mean Corpuscular Hemoglobin Concent 34 g/dL (31-37) Red Cell Distribution Width 13.4 % (11.5-14.5) Platelet Count 123 x10^3/uL (140-400) Neutrophils (%) (Auto) 92 % (31-73) Lymphocytes (%) (Auto) 2 % (24-48) Monocytes (%) (Auto) 5 % (0-9) Eosinophils (%) (Auto) 0 % (0-3) Basophils (%) (Auto) 1 % (0-3) Neutrophils # (Auto) 13.0 x10^3uL (1.8-7.7) Lymphocytes # (Auto) 0.3 x10^3/uL (1.0-4.8) Monocytes # (Auto) 0.7 x10^3/uL (0.0-1.1) Eosinophils # (Auto) 0.0 x10^3/uL (0.0-0.7) Basophils # (Auto) 0.1 x10^3/uL (0.0-0.2) Segmented Neutrophils % 81 % (35-66) Band Neutrophils % 7 % (0-9) Lymphocytes % 5 % (24-48) Monocytes % 7 % (0-10) Platelet Estimate Decreased (ADEQUATE) Erythrocyte Sedimentation Rate 38 (0-15) Sodium Level 135 mmol/L (136-145) Potassium Level 4.3 mmol/L (3.5-5.1) Chloride Level 94 mmol/L (98-107) Carbon Dioxide Level 31 mmol/L (21-32) Anion Gap 10 (6-14) Blood Urea Nitrogen 73 mg/dL (8-26) Creatinine 8.4 mg/dL (0.7-1.3) Estimated GFR (Cockcroft-Gault) 6.3 BUN/Creatinine Ratio 9 (6-20) Glucose Level 209 mg/dL (70-99) Lactic Acid Level 2.7 mmol/L (0.4-2.0) Calcium Level 8.8 mg/dL (8.5-10.1) Total Bilirubin 0.9 mg/dL (0.2-1.0) Aspartate Amino Transf (AST/SGOT) 11 U/L (15-37) Alanine Aminotransferase (ALT/SGPT) 25 U/L (16-63) Alkaline Phosphatase 123 U/L (46-116) Troponin I Quantitative 0.047 ng/mL (0.000-0.055) VL-Ydz-N-Type Natriuretic Peptide 22630 pg/mL (0-124) Total Protein 7.8 g/dL (6.4-8.2) Albumin 3.8 g/dL (3.4-5.0) Albumin/Globulin Ratio 1.0 (1.0-1.7) Lipase 101 U/L (73-393) Glucose (Fingerstick) 142 mg/dL (70-99) Review All relevant outside records, renal labs, imaging studies, telemetry/EKG's were reviewed. Images Images CT scan --- 1. Mild left lung base airspace opacities likely atelectasis or infiltrate. 2. Absent left kidney. 3. Mild sigmoid colon diverticulosis. Minimal amount of free fluid identified in the pelvis, nonspecific. 4. Cystic structure identified in the right kidney could be cysts or cystic lesions. 5. Tiny 3 mm density identified in the gallbladder could be polyp or stone. 6. 4 mm nodule identified in the left lingula. Follow-up effusions articulates with follow-up CT chest in 6 months. Electronically signed by: William Roberts MD (01/12/2018 6:42 PM) [facility] TREVIN CERNA MD Jan 13, 2018 10:58
--- NOTE | 2018-01-13 11:40 | PDOC ---
Infectious Disease Note Vital Sign Vital Signs Vital Signs Date Time Temp Pulse Resp B/P (MAP) Pulse Ox O2 Delivery O2 Flow Rate FiO2 01/13/18 10:55 97.8 69 20 108/58 (75) 99 Nasal Cannula 2.0 97.8 Labs Lab Laboratory Tests Test 01/12/18 18:05 01/13/18 07:46 White Blood Count 14.1 x10^3/uL (4.0-11.0) Red Blood Count 3.51 x10^6/uL (4.30-5.70) Hemoglobin 12.0 g/dL (13.0-17.5) Hematocrit 35.1 % (39.0-53.0) Mean Corpuscular Volume 100 fL (79-100) Mean Corpuscular Hemoglobin 34 pg (25-35) Mean Corpuscular Hemoglobin Concent 34 g/dL (31-37) Red Cell Distribution Width 13.4 % (11.5-14.5) Platelet Count 123 x10^3/uL (140-400) Neutrophils (%) (Auto) 92 % (31-73) Lymphocytes (%) (Auto) 2 % (24-48) Monocytes (%) (Auto) 5 % (0-9) Eosinophils (%) (Auto) 0 % (0-3) Basophils (%) (Auto) 1 % (0-3) Neutrophils # (Auto) 13.0 x10^3uL (1.8-7.7) Lymphocytes # (Auto) 0.3 x10^3/uL (1.0-4.8) Monocytes # (Auto) 0.7 x10^3/uL (0.0-1.1) Eosinophils # (Auto) 0.0 x10^3/uL (0.0-0.7) Basophils # (Auto) 0.1 x10^3/uL (0.0-0.2) Segmented Neutrophils % 81 % (35-66) Band Neutrophils % 7 % (0-9) Lymphocytes % 5 % (24-48) Monocytes % 7 % (0-10) Platelet Estimate Decreased (ADEQUATE) Erythrocyte Sedimentation Rate 38 (0-15) Sodium Level 135 mmol/L (136-145) Potassium Level 4.3 mmol/L (3.5-5.1) Chloride Level 94 mmol/L (98-107) Carbon Dioxide Level 31 mmol/L (21-32) Anion Gap 10 (6-14) Blood Urea Nitrogen 73 mg/dL (8-26) Creatinine 8.4 mg/dL (0.7-1.3) Estimated GFR (Cockcroft-Gault) 6.3 BUN/Creatinine Ratio 9 (6-20) Glucose Level 209 mg/dL (70-99) Lactic Acid Level 2.7 mmol/L (0.4-2.0) Calcium Level 8.8 mg/dL (8.5-10.1) Total Bilirubin 0.9 mg/dL (0.2-1.0) Aspartate Amino Transf (AST/SGOT) 11 U/L (15-37) Alanine Aminotransferase (ALT/SGPT) 25 U/L (16-63) Alkaline Phosphatase 123 U/L (46-116) Troponin I Quantitative 0.047 ng/mL (0.000-0.055) OM-Zvr-N-Type Natriuretic Peptide 97407 pg/mL (0-124) Total Protein 7.8 g/dL (6.4-8.2) Albumin 3.8 g/dL (3.4-5.0) Albumin/Globulin Ratio 1.0 (1.0-1.7) Lipase 101 U/L (73-393) Glucose (Fingerstick) 142 mg/dL (70-99) Micro Microbiology 01/12/18 Blood Culture - Final, Complete Objective Assessment Bacteremia 1/2 bottles 9/2 Leukocytosis CKD on HD M/W/F S/p cat scratches to R hand/arm - no gross cellulitis Toe wound on right - casted changed Q tues. States on abx at home but cannot remember which one N/V H/o Enterobacter sepsis December 2016 Plan Plan of Care Cont Vanc Adjust zosyn to q 8 Add probiotics F/u labs and cults F/u C-diff Thank you # [id number] VIRIDIANA ARANA MD Jan 13, 2018 11:40
[2018-01-13] MEDS ORDERED: IV NORMAL SALINE 1000ML BAG 1,000 ML IV PRN ×2 (12:00)
--- NOTE | 2018-01-13 12:18 | CONS ---
DATE OF CONSULTATION: 01/13/2018 LOCATION: The patient is in room 560. REQUESTING PHYSICIAN: Dr. Garcia. REASON FOR CONSULTATION: One or two gram-positive cocci in the blood. HISTORY OF PRESENT ILLNESS: The patient is a pleasant 72-year-old gentleman with history of chronic kidney disease, on hemodialysis starting in 05/2016. He states he does have history of previous Enterobacter sepsis back in 12/2016. [facility] a toe wound, which he gets casted every Saturday. He goes dialysis every Saturday, Saturday and Saturday. Yesterday, he became acutely ill with subjective fevers, nausea, vomiting, occasional loose stools and some mild shortness of air. Denies any ill contacts. He does state that he was taking some antibiotics at home, but he cannot remember which antibiotic he was taking. Additionally, he has five cats at home and does have some mild scratches on his right arm. He believes they have been there for maybe a week or so. He presented to [facility] with a temperature of 99.7. White blood cell count was elevated at 14.1. He was placed on Zosyn and vancomycin and cultures were obtained. Today cultures returned positive again in 1 bottle for a gram-positive cocci. Currently, he is lying in bed. Denies any gross headaches, but did have some sweats and some chills. No sore throat, cough or chest pain. He does make occasional urine. Denies any falls or other trauma. PAST MEDICAL HISTORY: Positive for the history of above-mentioned Enterococcal sepsis that was pansensitive. He has a history of chronic diarrhea; atrial fibrillation; systolic congestive heart failure with EF 35%; chronic kidney disease, on hemodialysis since 05/2016; previous CVA; hypercholesterolemia; hypertension; gout and diabetes. He is hard of hearing and has a right great toe wound. PAST SURGICAL HISTORY: Positive for AV fistula placed in 07/2016 and underwent a branch ligation in 12/2016. He has had cataract extractions as well as right nephrectomy. REVIEW OF SYSTEMS: Otherwise negative, except as mentioned above. SOCIAL HISTORY: He is and lives at home. He is a former smoker, quit in the . He does have a history of heavy alcohol use. FAMILY HISTORY: Positive for previous CVA as well as hypertension. ALLERGIES: LISTED TO LISINOPRIL AND UNSPECIFIED NUTS. CURRENT MEDICATIONS: Include Zosyn, vancomycin, allopurinol, Eliquis, Lipitor, Coreg, Sensipar, cholecalciferol, Lasix, Lantus, Humalog, Renvela and Ultram. Other meds are available as reviewed in the chart. PHYSICAL EXAMINATION: VITAL SIGNS: T-max has been 99.7, currently 97.8; pulse 69; respirations 20; blood pressure 108/58 and satting 99% on 2 liters. CONSTITUTIONAL: He is lying in bed. He is currently on his right side. He is pleasant. He is cooperative, but he is hard of hearing. He is in no acute distress. HEENT: Pupils are equal and reactive. Oral cavity, pharynx is clear, with some questionable dentition. NECK: Supple, no JVD. LUNGS: Clear to auscultation bilaterally. HEART: S1, S2. ABDOMEN: Obese, soft, nontender and nondistended. EXTREMITIES: No clubbing or cyanosis. Right lower extremity is in the cast. His left upper extremity has AV fistula, without signs of any complications. NEUROLOGIC: He is alert and oriented. He has no focal defects appreciated. SKIN: Warm to touch, without signs of generalized rash, but he does have some scabbing on his right upper extremity. IV site is clean. LABORATORY DATA: Laboratory values on admission, white count 14.1, hemoglobin 12, platelets of 123,000, neutrophils 92 and lymphs are 2. Sed rate was 38. Creatinine 8.3, glucose 209. AST 11. NT-proBNP 18,314. Alkaline phosphatase of 123. CT scan of his chest, abdomen and pelvis, mild left lung base airspace opacities, likely atelectasis or infiltrate; absent left kidney and mild sigmoid colon diverticulosis. Other findings are noted. IMPRESSION: 1. Bacteremia, 1 of 2 bottles from 01/12/2018. 2. Leukocytosis. 3. Chronic kidney disease, on hemodialysis Saturday, Saturday and Saturday. 4. Status post cat scratches to right arm and hand. No gross cellulitis. 5. Toe wounds on the right, currently casted, changed every Saturday. He states he has been on antibiotics at home, but cannot remember which one. 6. Nausea and vomiting. 7. History of Enterobacter sepsis. RECOMMENDATIONS: We will continue the vancomycin. We will adjust the Zosyn to q. 8hours. We will add probiotics. Follow up labs and cultures and follow up on C. diff, but he does have a history of chronic diarrhea and on some stool softeners. Thank you for asking me to assist in the care of this patient. Should you have any questions, please do not hesitate to contact me. VIRIDIANA ARANA MD DR: TRACEE/vikki JOB#: [id number] / [id number]
--- NOTE | 2018-01-13 12:20 | PDOC1 ---
History and Physical Date of Admission Date of Admission 01/13/18 Identification/Chief Complaint Chief Complaint N/V, diarrhea Source Source: Chart review, Patient History of Present Illness History of Present Illness HPI Patient is a 72 year old male who presents with nausea, vomiting, diarrhea since Saturday and patient is also been febrile. Very poor historian. He said he had 3 time vomiting yesterday, yellow, without abd pain. Also had 3 time katz diarrhea. seems at home on abx but denies new meds recently. He admitted fever, but cannot tell me how high, as per ERP, Patient came in by EMS and was given 4 mg of Zofran IV per EMS. pt has a rt foot toe wound , goes to wound clinic every saturday, said it was better . The whole rt foot is covered with cast and cannot be seen for now. pT DENies cough, sob, sputum, chest pain, abd pain. nurse paged me later today telling me 1/2 + gram neg bcx. Past Medical History Cardiovascular: AFIB, CAD, CHF, HTN GI: Constipation, GERD Heme/Onc: Anemia NOS Renal/: Chronic renal failure, Other Endocrine: Diabetes, Hyperparathyroidism Past Surgical History Past Surgical History: Other Family History Family History: Hypertension Social History Smoke: Quit ALCOHOL: none Drugs: None Current Problem List Problem List Problems Medical Problems: (1) Pneumonia Status: Acute Current Medications Current Medications Current Medications Medications (Trade) Dose Ordered Sig/[place]anza Start Time Stop Time Status Last Admin Dose Admin Acetaminophen (Tylenol) 650 mg PRN Q6HRS PRN 01/13/18 08:45 Allopurinol (Zyloprim) 100 mg DAILY 01/13/18 09:00 Apixaban (Eliquis) 5 mg BID 01/13/18 09:00 Atorvastatin Calcium (Lipitor) 5 mg QHS 01/13/18 21:00 Cancel Carvedilol (Coreg) 6.25 mg BIDWMEALS 01/13/18 09:00 Cinacalcet (Sensipar) 60 mg DAILY 01/13/18 09:00 Dextrose (Dextrose 50%-Water Syringe) 12.5 gm PRN Q15MIN PRN 01/13/18 08:45 Docusate Sodium (Colace) 100 mg PRN DAILY PRN 01/13/18 08:45 Ferrous Sulfate (Feosol) 325 mg TID 01/13/18 09:00 Furosemide (Lasix) 40 mg BID92 01/13/18 09:00 Insulin Glargine (Lantus) 20 units QHS 01/13/18 21:00 Insulin Human Lispro (HumaLOG) 0-9 UNITS TIDWMEALS 01/13/18 12:00 Lactobacillus Rhamnosus (Culturelle) 1 cap BID 01/13/18 21:00 Morphine Sulfate (Morphine Sulfate) 2 mg PRN Q2HR PRN 01/13/18 08:45 Ondansetron HCl (Zofran) 4 mg PRN Q6HRS PRN 01/13/18 08:45 Piperacillin Sod/ Tazobactam Sod (Zosyn Per Pharmacy) 1 each PRN DAILY PRN 01/12/18 19:15 01/13/18 11:24 DC Piperacillin Sod/ Tazobactam Sod 2.25 gm/Sodium Chloride 50 ml @ 100 mls/hr Q8HRS 01/13/18 14:00 Sevelamer Carbonate (Renvela) 2,400 mg TIDWMEALS 01/13/18 09:00 01/13/18 10:35 2,400 MG Tramadol HCl (Ultram) 50 mg PRN Q6HRS PRN 01/13/18 08:45 Vancomycin HCl (Vanco Per Pharmacy) 1 each PRN DAILY PRN 01/12/18 19:15 01/13/18 10:58 1 EACH Vancomycin HCl (Vancomycin Random Level) 1 each 1X ONCE 01/15/18 06:00 01/15/18 06:01 Vancomycin HCl 2 gm/Sodium Chloride 500 ml @ 250 mls/hr 1X ONCE 01/12/18 20:00 01/12/18 21:59 DC 01/12/18 20:08 250 MLS/HR Allergies Allergies Allergies Coded Allergies Type Severity Reaction Last Updated Verified nut - unspecified Allergy Intermediate 01/13/18 Yes lisinopril Adverse Reaction Intermediate Cough 12/27/16 Yes ROS Review of System CONSTITUTIONAL: No fever or chills EYES: No recent changes SKIN: No rash or itching CARDIOVASCULAR: No chest pain, syncope, palpitations, or edema RESPIRATORY: No SOB or cough GASTROINTESTINAL: No nausea, vomiting or abdominal pain NEUROLOGICAL: No headaches or weakness ENDOCRINE: No cold or heat intolerance GENITOURINARY: No urgency or frequency of urination MUSCULOSKELETAL: No back pain or joint pain LYMPHATICS: No enlarged lymph nodes PSYCHIATRIC: No anxiety or depression Physical Exam Physical Exam GEN.: No apparent distress. Alert and oriented. HEENT: Head is normocephalic, atraumatic NECK: Supple. LUNGS: Clear to auscultation. HEART: RRR, S1, S2 present. Peripheral pulses intact ABDOMEN: Soft, nontender. Positive bowel sounds. EXTREMITIES: Without any cyanosis. rt foot up to leg has Cast on. NEUROLOGIC: Normal speech, normal tone PSYCHIATRIC: Normal affect, normal mood. SKIN: No ulcerations Vitals Vitals Vital Signs Date Time Temp Pulse Resp B/P (MAP) Pulse Ox O2 Delivery O2 Flow Rate FiO2 01/13/18 10:55 97.8 69 20 108/58 (75) 99 Nasal Cannula 2.0 97.8 Labs Labs Laboratory Tests Test 01/12/18 18:05 01/13/18 07:46 White Blood Count 14.1 x10^3/uL (4.0-11.0) Red Blood Count 3.51 x10^6/uL (4.30-5.70) Hemoglobin 12.0 g/dL (13.0-17.5) Hematocrit 35.1 % (39.0-53.0) Mean Corpuscular Volume 100 fL (79-100) Mean Corpuscular Hemoglobin 34 pg (25-35) Mean Corpuscular Hemoglobin Concent 34 g/dL (31-37) Red Cell Distribution Width 13.4 % (11.5-14.5) Platelet Count 123 x10^3/uL (140-400) Neutrophils (%) (Auto) 92 % (31-73) Lymphocytes (%) (Auto) 2 % (24-48) Monocytes (%) (Auto) 5 % (0-9) Eosinophils (%) (Auto) 0 % (0-3) Basophils (%) (Auto) 1 % (0-3) Neutrophils # (Auto) 13.0 x10^3uL (1.8-7.7) Lymphocytes # (Auto) 0.3 x10^3/uL (1.0-4.8) Monocytes # (Auto) 0.7 x10^3/uL (0.0-1.1) Eosinophils # (Auto) 0.0 x10^3/uL (0.0-0.7) Basophils # (Auto) 0.1 x10^3/uL (0.0-0.2) Segmented Neutrophils % 81 % (35-66) Band Neutrophils % 7 % (0-9) Lymphocytes % 5 % (24-48) Monocytes % 7 % (0-10) Platelet Estimate Decreased (ADEQUATE) Erythrocyte Sedimentation Rate 38 (0-15) Sodium Level 135 mmol/L (136-145) Potassium Level 4.3 mmol/L (3.5-5.1) Chloride Level 94 mmol/L (98-107) Carbon Dioxide Level 31 mmol/L (21-32) Anion Gap 10 (6-14) Blood Urea Nitrogen 73 mg/dL (8-26) Creatinine 8.4 mg/dL (0.7-1.3) Estimated GFR (Cockcroft-Gault) 6.3 BUN/Creatinine Ratio 9 (6-20) Glucose Level 209 mg/dL (70-99) Lactic Acid Level 2.7 mmol/L (0.4-2.0) Calcium Level 8.8 mg/dL (8.5-10.1) Total Bilirubin 0.9 mg/dL (0.2-1.0) Aspartate Amino Transf (AST/SGOT) 11 U/L (15-37) Alanine Aminotransferase (ALT/SGPT) 25 U/L (16-63) Alkaline Phosphatase 123 U/L (46-116) Troponin I Quantitative 0.047 ng/mL (0.000-0.055) OS-Bta-L-Type Natriuretic Peptide 41906 pg/mL (0-124) Total Protein 7.8 g/dL (6.4-8.2) Albumin 3.8 g/dL (3.4-5.0) Albumin/Globulin Ratio 1.0 (1.0-1.7) Lipase 101 U/L (73-393) Glucose (Fingerstick) 142 mg/dL (70-99) Laboratory Tests Test 01/12/18 18:05 01/13/18 07:46 White Blood Count 14.1 x10^3/uL (4.0-11.0) Red Blood Count 3.51 x10^6/uL (4.30-5.70) Hemoglobin 12.0 g/dL (13.0-17.5) Hematocrit 35.1 % (39.0-53.0) Mean Corpuscular Volume 100 fL (79-100) Mean Corpuscular Hemoglobin 34 pg (25-35) Mean Corpuscular Hemoglobin Concent 34 g/dL (31-37) Red Cell Distribution Width 13.4 % (11.5-14.5) Platelet Count 123 x10^3/uL (140-400) Neutrophils (%) (Auto) 92 % (31-73) Lymphocytes (%) (Auto) 2 % (24-48) Monocytes (%) (Auto) 5 % (0-9) Eosinophils (%) (Auto) 0 % (0-3) Basophils (%) (Auto) 1 % (0-3) Neutrophils # (Auto) 13.0 x10^3uL (1.8-7.7) Lymphocytes # (Auto) 0.3 x10^3/uL (1.0-4.8) Monocytes # (Auto) 0.7 x10^3/uL (0.0-1.1) Eosinophils # (Auto) 0.0 x10^3/uL (0.0-0.7) Basophils # (Auto) 0.1 x10^3/uL (0.0-0.2) Segmented Neutrophils % 81 % (35-66) Band Neutrophils % 7 % (0-9) Lymphocytes % 5 % (24-48) Monocytes % 7 % (0-10) Platelet Estimate Decreased (ADEQUATE) Erythrocyte Sedimentation Rate 38 (0-15) Sodium Level 135 mmol/L (136-145) Potassium Level 4.3 mmol/L (3.5-5.1) Chloride Level 94 mmol/L (98-107) Carbon Dioxide Level 31 mmol/L (21-32) Anion Gap 10 (6-14) Blood Urea Nitrogen 73 mg/dL (8-26) Creatinine 8.4 mg/dL (0.7-1.3) Estimated GFR (Cockcroft-Gault) 6.3 BUN/Creatinine Ratio 9 (6-20) Glucose Level 209 mg/dL (70-99) Lactic Acid Level 2.7 mmol/L (0.4-2.0) Calcium Level 8.8 mg/dL (8.5-10.1) Total Bilirubin 0.9 mg/dL (0.2-1.0) Aspartate Amino Transf (AST/SGOT) 11 U/L (15-37) Alanine Aminotransferase (ALT/SGPT) 25 U/L (16-63) Alkaline Phosphatase 123 U/L (46-116) Troponin I Quantitative 0.047 ng/mL (0.000-0.055) XZ-Hkt-X-Type Natriuretic Peptide 59592 pg/mL (0-124) Total Protein 7.8 g/dL (6.4-8.2) Albumin 3.8 g/dL (3.4-5.0) Albumin/Globulin Ratio 1.0 (1.0-1.7) Lipase 101 U/L (73-393) Glucose (Fingerstick) 142 mg/dL (70-99) VTE Prophylaxis Ordered VTE Prophylaxis Devices: Yes VTE Pharmacological Prophylaxi: No Assessment/Plan Assessment/Plan N/V, diarrhea fever 1/2 bacteremia doubt PNA htn dm2 ESRD on HD mwf pafib on eliquis h/o left kidney Ca s/p nephrectomy CT showed 4mm lung nodule sepsis plan: renal, ID consult cont home meds, on lasix bid lantus 20u qhs, ssi cont HD fu bcx, on zosyn and vanco wound care doc consult, need to open cast to have a look cont eliquis dvt ppx PTOT check cdiff asked pt to fu with pcp for small lung nodule ARIELLA ESQUIVEL MD Jan 13, 2018 12:20
[2018-01-13] MEDS: INSULIN LISPRO 300 UNITS/3 ML INSULN.PEN. SQ SCH ×2 (12:29→17:00)
[2018-01-13] MEDS ORDERED: DIALYSIS PATIENT. MC PRN ×2 (15:30)
[2018-01-13] MEDS ORDERED: ALBUTEROL SULFATE 2.5 MG/3 ML NEBU. NEB PRN (16:45)
--- NOTE | 2018-01-13 16:47 | PDOC ---
PULMONARY PROGRESS NOTES Vitals Vital Signs Date Time Temp Pulse Resp B/P (MAP) Pulse Ox O2 Delivery O2 Flow Rate FiO2 01/13/18 10:55 97.8 69 20 108/58 (75) 99 Nasal Cannula 2.0 97.8 Lungs: Clear Labs Laboratory Tests Test 01/12/18 18:05 01/13/18 07:46 01/13/18 12:00 01/13/18 16:27 White Blood Count 14.1 x10^3/uL (4.0-11.0) Red Blood Count 3.51 x10^6/uL (4.30-5.70) Hemoglobin 12.0 g/dL (13.0-17.5) Hematocrit 35.1 % (39.0-53.0) Mean Corpuscular Volume 100 fL (79-100) Mean Corpuscular Hemoglobin 34 pg (25-35) Mean Corpuscular Hemoglobin Concent 34 g/dL (31-37) Red Cell Distribution Width 13.4 % (11.5-14.5) Platelet Count 123 x10^3/uL (140-400) Neutrophils (%) (Auto) 92 % (31-73) Lymphocytes (%) (Auto) 2 % (24-48) Monocytes (%) (Auto) 5 % (0-9) Eosinophils (%) (Auto) 0 % (0-3) Basophils (%) (Auto) 1 % (0-3) Neutrophils # (Auto) 13.0 x10^3uL (1.8-7.7) Lymphocytes # (Auto) 0.3 x10^3/uL (1.0-4.8) Monocytes # (Auto) 0.7 x10^3/uL (0.0-1.1) Eosinophils # (Auto) 0.0 x10^3/uL (0.0-0.7) Basophils # (Auto) 0.1 x10^3/uL (0.0-0.2) Segmented Neutrophils % 81 % (35-66) Band Neutrophils % 7 % (0-9) Lymphocytes % 5 % (24-48) Monocytes % 7 % (0-10) Platelet Estimate Decreased (ADEQUATE) Erythrocyte Sedimentation Rate 38 (0-15) Sodium Level 135 mmol/L (136-145) Potassium Level 4.3 mmol/L (3.5-5.1) Chloride Level 94 mmol/L (98-107) Carbon Dioxide Level 31 mmol/L (21-32) Anion Gap 10 (6-14) Blood Urea Nitrogen 73 mg/dL (8-26) Creatinine 8.4 mg/dL (0.7-1.3) Estimated GFR (Cockcroft-Gault) 6.3 BUN/Creatinine Ratio 9 (6-20) Glucose Level 209 mg/dL (70-99) Lactic Acid Level 2.7 mmol/L (0.4-2.0) Calcium Level 8.8 mg/dL (8.5-10.1) Total Bilirubin 0.9 mg/dL (0.2-1.0) Aspartate Amino Transf (AST/SGOT) 11 U/L (15-37) Alanine Aminotransferase (ALT/SGPT) 25 U/L (16-63) Alkaline Phosphatase 123 U/L (46-116) Troponin I Quantitative 0.047 ng/mL (0.000-0.055) IT-Vtk-F-Type Natriuretic Peptide 73398 pg/mL (0-124) Total Protein 7.8 g/dL (6.4-8.2) Albumin 3.8 g/dL (3.4-5.0) Albumin/Globulin Ratio 1.0 (1.0-1.7) Lipase 101 U/L (73-393) Glucose (Fingerstick) 142 mg/dL (70-99) 160 mg/dL (70-99) 97 mg/dL (70-99) Laboratory Tests Test 01/12/18 18:05 01/13/18 07:46 01/13/18 12:00 01/13/18 16:27 White Blood Count 14.1 x10^3/uL (4.0-11.0) Red Blood Count 3.51 x10^6/uL (4.30-5.70) Hemoglobin 12.0 g/dL (13.0-17.5) Hematocrit 35.1 % (39.0-53.0) Mean Corpuscular Volume 100 fL (79-100) Mean Corpuscular Hemoglobin 34 pg (25-35) Mean Corpuscular Hemoglobin Concent 34 g/dL (31-37) Red Cell Distribution Width 13.4 % (11.5-14.5) Platelet Count 123 x10^3/uL (140-400) Neutrophils (%) (Auto) 92 % (31-73) Lymphocytes (%) (Auto) 2 % (24-48) Monocytes (%) (Auto) 5 % (0-9) Eosinophils (%) (Auto) 0 % (0-3) Basophils (%) (Auto) 1 % (0-3) Neutrophils # (Auto) 13.0 x10^3uL (1.8-7.7) Lymphocytes # (Auto) 0.3 x10^3/uL (1.0-4.8) Monocytes # (Auto) 0.7 x10^3/uL (0.0-1.1) Eosinophils # (Auto) 0.0 x10^3/uL (0.0-0.7) Basophils # (Auto) 0.1 x10^3/uL (0.0-0.2) Segmented Neutrophils % 81 % (35-66) Band Neutrophils % 7 % (0-9) Lymphocytes % 5 % (24-48) Monocytes % 7 % (0-10) Platelet Estimate Decreased (ADEQUATE) Erythrocyte Sedimentation Rate 38 (0-15) Sodium Level 135 mmol/L (136-145) Potassium Level 4.3 mmol/L (3.5-5.1) Chloride Level 94 mmol/L (98-107) Carbon Dioxide Level 31 mmol/L (21-32) Anion Gap 10 (6-14) Blood Urea Nitrogen 73 mg/dL (8-26) Creatinine 8.4 mg/dL (0.7-1.3) Estimated GFR (Cockcroft-Gault) 6.3 BUN/Creatinine Ratio 9 (6-20) Glucose Level 209 mg/dL (70-99) Lactic Acid Level 2.7 mmol/L (0.4-2.0) Calcium Level 8.8 mg/dL (8.5-10.1) Total Bilirubin 0.9 mg/dL (0.2-1.0) Aspartate Amino Transf (AST/SGOT) 11 U/L (15-37) Alanine Aminotransferase (ALT/SGPT) 25 U/L (16-63) Alkaline Phosphatase 123 U/L (46-116) Troponin I Quantitative 0.047 ng/mL (0.000-0.055) VJ-Qql-T-Type Natriuretic Peptide 07907 pg/mL (0-124) Total Protein 7.8 g/dL (6.4-8.2) Albumin 3.8 g/dL (3.4-5.0) Albumin/Globulin Ratio 1.0 (1.0-1.7) Lipase 101 U/L (73-393) Glucose (Fingerstick) 142 mg/dL (70-99) 160 mg/dL (70-99) 97 mg/dL (70-99) Medications Active Scripts Medications Dose Route/Sig Max Daily Dose Days Date Category Culturelle (Lactobacillus Rhamnosus Gg) 1 Each Cap.sprink 1 Cap PO BID 06/06/17 Rx Cefpodoxime Proxetil 100 Mg Tablet 200 Mg PO BID 06/06/17 Rx Allopurinol 100 Mg Tablet 100 Mg PO DAILY 06/06/17 Rx Renvela (Sevelamer Carbonate) 800 Mg Tablet 3 Tab PO TID 06/03/17 Reported Entresto 49 mg-51 mg Tablet (Sacubitril/Valsartan) 1 Each Tablet 1 Each PO 06/03/17 Reported Lasix (Furosemide) 40 Mg Tablet 40 Mg PO BID 06/03/17 Reported Sensipar (Cinacalcet Hcl) 30 Mg Tablet 60 Mg PO DAILY 06/03/17 Reported Eliquis (Apixaban) 5 Mg Tablet 5 Mg PO BID 06/03/17 Reported Ferrous Sulfate 325 Mg Tablet 1 Tab PO TID 06/03/17 Reported Coreg (Carvedilol) 6.25 Mg Tablet 1 Tab PO BID 06/03/17 Reported Atorvastatin Calcium 20 Mg Tablet 20 Mg PO HS 06/03/17 Reported Novolog Flexpen (Insulin Aspart) 100 Unit/1 Ml Insuln.pen 0 Units SQ TIDWMEALS 30 01/12/17 Rx Levemir Flextouch (Insulin Detemir) 100 Unit/1 Ml Insuln.pen 20 Units SQ QHS 30 01/12/17 Rx Pravastatin Sodium 20 Mg Tablet 20 Mg PO DAILY 06/26/13 Reported Impression . DICTATED PNEUMONIA AGREE WITH CURRENT RX THANKS TRINH MCKINNON MD Jan 13, 2018 16:47
[2018-01-13 18:11] VITALS: BP 115/65
[2018-01-13] MEDS: ALLOPURINOL 100 MG TABLET. PO SCH (18:14)
[2018-01-13] MEDS: CINACALCET HCL 30 MG TABLET PO SCH (18:14)
[2018-01-13 19:04] VITALS: BP 119/63
--- NOTE | 2018-01-13 19:07 | CONS ---
DATE OF CONSULTATION: 01/13/2018 ATTENDING PHYSICIAN: Dr. Garcia. REASON FOR CONSULTATION: The patient seen in pulmonary consultation at the request of Dr. Garcia for abnormal CT of the chest. HISTORY OF PRESENT ILLNESS: The patient is a 72-year-old that presented with not feeling well. He has a history of end-stage renal disease, on hemodialysis. He has had previous sepsis in the past with Enterobacter sepsis dating back to December 2016. He also has a chronic wound to his toe. He acutely became febrile, nausea, vomiting, occasional loose stool. He presented to the Emergency Room. He was also short of breath. A CT chest was obtained. I reviewed the CT, there is left lower lobe airspace disease and a 4 mm lingular, on the left, nodule. I was asked to see him in consultation. The patient has been seen by Infectious Disease Service. He is currently being treated for bacteremia, leukocytosis and pneumonia. He is currently on vancomycin and Zosyn. PAST MEDICAL HISTORY: 1. End-stage renal disease, on hemodialysis as indicated above. 2. Previous history of Enterococcal sepsis. 3. Chronic diarrhea. 4. Atrial fibrillation. 5. Tobacco dependence, in remission, quit in 1979, smoked for 15 years. No History of COPD. 6. Chronic heart failure, systolic, diastolic. 7. Previous CVA. 8. Hyperlipidemia. 9. Hypertension. 10. Gout. 11. Diabetes. 12. Chronic lower extremity wound, routinely goes to the wound center. PAST SURGICAL HISTORY: AV fistula formation, previous cataract extraction, right nephrectomy. REVIEW OF SYSTEMS: CONSTITUTIONAL: Subjective fever. EYES: No change in visual acuity. HEENT: No nasal congestion, no sore throat. PULMONARY: As indicated above. CARDIOVASCULAR: No chest pain. No pressure. GASTROINTESTINAL: As indicated above. GENITOURINARY: No dysuria or frequency. MUSCULOSKELETAL: No localized muscle aches or joint pains. SKIN: No new skin rashes. NEUROLOGIC: No headaches, diplopia or blurred vision. SOCIAL HISTORY: He is , lives at home. Former smoker, quit in 1979, smoked for approximately 15 years, prior history of alcoholism. FAMILY HISTORY: Father had CVA, hypertension. ALLERGIES: LISTED TO LISINOPRIL, UNSPECIFIED NUTS. MEDICATIONS: List was reviewed. PHYSICAL EXAMINATION: GENERAL: Obese individual, body mass index of 35, in no respiratory distress. VITAL SIGNS: Revealed that he was afebrile. He is currently on 2 liters of oxygen supplementation, saturation greater than 92%. HEENT: Eyes, the sclerae were nonicteric. NECK: Jugular venous distention was not elevated. No lymphadenopathy. CHEST: Full expansion. LUNGS: Adequate airway flow with diminished breath sounds in the bases. CARDIOVASCULAR: Distant heart sounds with S1, S2, no S3. ABDOMEN: Soft, obese. EXTREMITIES: Dressing in place in the right. Some edema. NEUROLOGIC: The patient was awake, alert, following commands. A detailed neuro exam was not performed. LABORATORY DATA: Reviewed. White count was elevated. Hemoglobin and hematocrit were noted, platelet count was noted. Chemistry revealed elevated BUN and creatinine. Sodium was low. Albumin was normal. BNP was elevated. IMPRESSION: 1. Abnormal CT chest revealing airspace disease compatible with pneumonia. 2. A 4 mm left lingular pulmonary nodule. 3. Tobacco dependence, in remission, quit in 1979. 4. Leukocytosis. 5. Possible sepsis. 6. Bacteremia. 7. End-stage renal disease. 8. Chronic toe wound on the right. 9. History of Enterobacter sepsis. 10. Cardiomyopathy with ejection fraction of 35%. 11. Prior history of cerebrovascular accident. 12. History of gout, diabetes and hypertension. PLAN: 1. The patient is currently receiving Zosyn and vancomycin, which should cover most organisms in the lungs. 2. We will follow clinical course and make further recommendations. 3. Follow Infectious Diseases recommendation. 4. Repeat CT chest in 6 months. 5. P.r.n. nebulized treatments. 6. Deep venous thrombosis and gastrointestinal prophylaxis. I do appreciate the privilege in sharing in the patient's care. TRINH MCKINNON MD DR: SAULO/vikki JOB#: [id number] / [id number]
[2018-01-13] MEDS: LACTOBACILLUS RHAMNOSUS GG 1 CAPSULE. PO SCH (20:42)
[2018-01-13] MEDS: ATORVASTATIN CALCIUM 20 MG TABLET PO SCH (20:42)
[2018-01-13] MEDS: INSULIN GLARGINE 300 UNITS/3 ML INSULN.PEN. SQ SCH (20:47)
[2018-01-13] MEDS ORDERED: ATORVASTATIN CALCIUM 10 MG TABLET. PO SCH (21:00)
[2018-01-13 22:39] VITALS: BP 94/46
[2018-01-14 02:31] VITALS: BP 138/62
[2018-01-14 05:44] LABS: BASO # 0.1 x10^3/uL (0.0-0.2); BASO % 1 % (0-3); EOS # 0.1 x10^3/uL (0.0-0.7); EOS % 1 % (0-3); HEMATOCRIT 30.6 % (39.0-53.0); HEMOGLOBIN 10.7 g/dL (13.0-17.5); LYMPH # 0.8 x10^3/uL (1.0-4.8); LYMPH % 11 % (24-48); MEAN CORPUSCULAR HEMOGLOBIN 35 pg (25-35); MEAN CORPUSCULAR HGB CONC 35 g/dL (31-37); MEAN CORPUSCULAR VOLUME 99 fL (79-100); MONO # 0.8 x10^3/uL (0.0-1.1); MONO % 11 % (0-9); NEUT # 5.5 x10^3uL (1.8-7.7); NEUT % 76 % (31-73); PLATELET COUNT 97 x10^3/uL (140-400); RED BLOOD COUNT 3.08 x10^6/uL (4.30-5.70); RED CELL DISTRIBUTION WIDTH 13.7 % (11.5-14.5); WHITE BLOOD COUNT 7.3 x10^3/uL (4.0-11.0)
[2018-01-14] MEDS: PIPERACILLIN/TAZOBACTAM 2.25 GM in IV NORMAL SALINE 50ML 50 ML IV SCH ×2 (05:50→14:49)
[2018-01-14 06:15] LABS: CALCIUM 7.5 mg/dL (8.5-10.1); CREATININE 6.5 mg/dL (0.7-1.3); GFR 8.5; POTASSIUM 3.9 mmol/L (3.5-5.1)
[2018-01-14 07:00] VITALS: BP 114/64
--- NOTE | 2018-01-14 07:06 | EKG ---
[facility] [address] [place] [address] Test Date: 2018-01-12 Test Time: 17:54:26 Pat Name: DOROTHEA PUGA Department: Room: [facility] 1 Gender: M Tanning Solution Maker: HARRISON : 1945 Requested By: JOSE PAREDES Order Number: [id number] Reading MD: Art Romano MD Measurements Intervals [place] Rate: 77 P: MI: QRS: -56 QRSD: 132 T: 87 QT: 424 QTc: 482 Interpretive Statements IRREGULAR RHYTHM, NO P-WAVE FOUND ABNORMAL LEFT AXIS DEVIATION PROBABLE INFERIOR INFARCT Electronically Signed On 01-14-2018 12:11:10 CDT by Art Romano MD
[2018-01-14] MEDS: INSULIN LISPRO 300 UNITS/3 ML INSULN.PEN. SQ SCH ×3 (08:00→16:40)
[2018-01-14] MEDS: FOLIC/VIT B COMP W-C (RENAL) TABLET. PO SCH (09:07)
[2018-01-14] MEDS: APIXABAN 5 MG TABLET. PO SCH ×2 (09:07→21:30)
[2018-01-14] MEDS: SEVELAMER CARBONATE 800 MG TABLET. PO SCH ×3 (09:07→16:32)
[2018-01-14] MEDS: FUROSEMIDE 40 MG TABLET. PO SCH ×2 (09:07→14:48)
[2018-01-14] MEDS: ASCORBIC ACID 500 MG TABLET PO SCH (09:07)
[2018-01-14] MEDS: ALLOPURINOL 100 MG TABLET. PO SCH (09:07)
[2018-01-14] MEDS: CINACALCET HCL 30 MG TABLET PO SCH (09:07)
[2018-01-14] MEDS: LACTOBACILLUS RHAMNOSUS GG 1 CAPSULE. PO SCH ×2 (09:07→21:30)
[2018-01-14] MEDS: FERROUS SULFATE 325 MG TABLET. PO SCH ×3 (09:07→21:30)
[2018-01-14] MEDS: CARVEDILOL 6.25 MG TABLET. PO SCH ×2 (09:08→16:33)
--- NOTE | 2018-01-14 10:17 | PDOC ---
PULMONARY PROGRESS NOTES Subjective no soa Vitals Vital Signs Date Time Temp Pulse Resp B/P (MAP) Pulse Ox O2 Delivery O2 Flow Rate FiO2 01/14/18 09:08 76 114/64 01/14/18 08:00 Room Air 01/14/18 07:00 97.6 20 94 97.6 01/13/18 22:39 2.0 General: Alert, No acute distress Lungs: Clear Cardiovascular: S1 Abdomen: Soft Neuro Exam: Alert Extremities: Other (right leg cast) Skin: Warm Labs Laboratory Tests Test 01/12/18 18:05 01/13/18 07:46 01/13/18 12:00 01/13/18 16:27 White Blood Count 14.1 x10^3/uL (4.0-11.0) Red Blood Count 3.51 x10^6/uL (4.30-5.70) Hemoglobin 12.0 g/dL (13.0-17.5) Hematocrit 35.1 % (39.0-53.0) Mean Corpuscular Volume 100 fL (79-100) Mean Corpuscular Hemoglobin 34 pg (25-35) Mean Corpuscular Hemoglobin Concent 34 g/dL (31-37) Red Cell Distribution Width 13.4 % (11.5-14.5) Platelet Count 123 x10^3/uL (140-400) Neutrophils (%) (Auto) 92 % (31-73) Lymphocytes (%) (Auto) 2 % (24-48) Monocytes (%) (Auto) 5 % (0-9) Eosinophils (%) (Auto) 0 % (0-3) Basophils (%) (Auto) 1 % (0-3) Neutrophils # (Auto) 13.0 x10^3uL (1.8-7.7) Lymphocytes # (Auto) 0.3 x10^3/uL (1.0-4.8) Monocytes # (Auto) 0.7 x10^3/uL (0.0-1.1) Eosinophils # (Auto) 0.0 x10^3/uL (0.0-0.7) Basophils # (Auto) 0.1 x10^3/uL (0.0-0.2) Segmented Neutrophils % 81 % (35-66) Band Neutrophils % 7 % (0-9) Lymphocytes % 5 % (24-48) Monocytes % 7 % (0-10) Platelet Estimate Decreased (ADEQUATE) Erythrocyte Sedimentation Rate 38 (0-15) Sodium Level 135 mmol/L (136-145) Potassium Level 4.3 mmol/L (3.5-5.1) Chloride Level 94 mmol/L (98-107) Carbon Dioxide Level 31 mmol/L (21-32) Anion Gap 10 (6-14) Blood Urea Nitrogen 73 mg/dL (8-26) Creatinine 8.4 mg/dL (0.7-1.3) Estimated GFR (Cockcroft-Gault) 6.3 BUN/Creatinine Ratio 9 (6-20) Glucose Level 209 mg/dL (70-99) Lactic Acid Level 2.7 mmol/L (0.4-2.0) Calcium Level 8.8 mg/dL (8.5-10.1) Total Bilirubin 0.9 mg/dL (0.2-1.0) Aspartate Amino Transf (AST/SGOT) 11 U/L (15-37) Alanine Aminotransferase (ALT/SGPT) 25 U/L (16-63) Alkaline Phosphatase 123 U/L (46-116) Troponin I Quantitative 0.047 ng/mL (0.000-0.055) EV-Znk-L-Type Natriuretic Peptide 07447 pg/mL (0-124) Total Protein 7.8 g/dL (6.4-8.2) Albumin 3.8 g/dL (3.4-5.0) Albumin/Globulin Ratio 1.0 (1.0-1.7) Lipase 101 U/L (73-393) Glucose (Fingerstick) 142 mg/dL (70-99) 160 mg/dL (70-99) 97 mg/dL (70-99) Test 01/13/18 18:10 01/13/18 20:12 01/14/18 04:15 01/14/18 07:46 Glucose (Fingerstick) 121 mg/dL (70-99) 170 mg/dL (70-99) 146 mg/dL (70-99) White Blood Count 7.3 x10^3/uL (4.0-11.0) Red Blood Count 3.08 x10^6/uL (4.30-5.70) Hemoglobin 10.7 g/dL (13.0-17.5) Hematocrit 30.6 % (39.0-53.0) Mean Corpuscular Volume 99 fL (79-100) Mean Corpuscular Hemoglobin 35 pg (25-35) Mean Corpuscular Hemoglobin Concent 35 g/dL (31-37) Red Cell Distribution Width 13.7 % (11.5-14.5) Platelet Count 97 x10^3/uL (140-400) Neutrophils (%) (Auto) 76 % (31-73) Lymphocytes (%) (Auto) 11 % (24-48) Monocytes (%) (Auto) 11 % (0-9) Eosinophils (%) (Auto) 1 % (0-3) Basophils (%) (Auto) 1 % (0-3) Neutrophils # (Auto) 5.5 x10^3uL (1.8-7.7) Lymphocytes # (Auto) 0.8 x10^3/uL (1.0-4.8) Monocytes # (Auto) 0.8 x10^3/uL (0.0-1.1) Eosinophils # (Auto) 0.1 x10^3/uL (0.0-0.7) Basophils # (Auto) 0.1 x10^3/uL (0.0-0.2) Sodium Level 135 mmol/L (136-145) Potassium Level 3.9 mmol/L (3.5-5.1) Chloride Level 97 mmol/L (98-107) Carbon Dioxide Level 28 mmol/L (21-32) Anion Gap 10 (6-14) Blood Urea Nitrogen 47 mg/dL (8-26) Creatinine 6.5 mg/dL (0.7-1.3) Estimated GFR (Cockcroft-Gault) 8.5 Glucose Level 138 mg/dL (70-99) Calcium Level 7.5 mg/dL (8.5-10.1) Laboratory Tests Test 01/13/18 12:00 01/13/18 16:27 01/13/18 18:10 01/13/18 20:12 Glucose (Fingerstick) 160 mg/dL (70-99) 97 mg/dL (70-99) 121 mg/dL (70-99) 170 mg/dL (70-99) Test 01/14/18 04:15 01/14/18 07:46 White Blood Count 7.3 x10^3/uL (4.0-11.0) Red Blood Count 3.08 x10^6/uL (4.30-5.70) Hemoglobin 10.7 g/dL (13.0-17.5) Hematocrit 30.6 % (39.0-53.0) Mean Corpuscular Volume 99 fL (79-100) Mean Corpuscular Hemoglobin 35 pg (25-35) Mean Corpuscular Hemoglobin Concent 35 g/dL (31-37) Red Cell Distribution Width 13.7 % (11.5-14.5) Platelet Count 97 x10^3/uL (140-400) Neutrophils (%) (Auto) 76 % (31-73) Lymphocytes (%) (Auto) 11 % (24-48) Monocytes (%) (Auto) 11 % (0-9) Eosinophils (%) (Auto) 1 % (0-3) Basophils (%) (Auto) 1 % (0-3) Neutrophils # (Auto) 5.5 x10^3uL (1.8-7.7) Lymphocytes # (Auto) 0.8 x10^3/uL (1.0-4.8) Monocytes # (Auto) 0.8 x10^3/uL (0.0-1.1) Eosinophils # (Auto) 0.1 x10^3/uL (0.0-0.7) Basophils # (Auto) 0.1 x10^3/uL (0.0-0.2) Sodium Level 135 mmol/L (136-145) Potassium Level 3.9 mmol/L (3.5-5.1) Chloride Level 97 mmol/L (98-107) Carbon Dioxide Level 28 mmol/L (21-32) Anion Gap 10 (6-14) Blood Urea Nitrogen 47 mg/dL (8-26) Creatinine 6.5 mg/dL (0.7-1.3) Estimated GFR (Cockcroft-Gault) 8.5 Glucose Level 138 mg/dL (70-99) Calcium Level 7.5 mg/dL (8.5-10.1) Glucose (Fingerstick) 146 mg/dL (70-99) Medications Active Scripts Medications Dose Route/Sig Max Daily Dose Days Date Category Culturelle (Lactobacillus Rhamnosus Gg) 1 Each Cap.sprink 1 Cap PO BID 06/06/17 Rx Cefpodoxime Proxetil 100 Mg Tablet 200 Mg PO BID 06/06/17 Rx Allopurinol 100 Mg Tablet 100 Mg PO DAILY 06/06/17 Rx Renvela (Sevelamer Carbonate) 800 Mg Tablet 3 Tab PO TID 06/03/17 Reported Entresto 49 mg-51 mg Tablet (Sacubitril/Valsartan) 1 Each Tablet 1 Each PO 06/03/17 Reported Lasix (Furosemide) 40 Mg Tablet 40 Mg PO BID 06/03/17 Reported Sensipar (Cinacalcet Hcl) 30 Mg Tablet 60 Mg PO DAILY 06/03/17 Reported Eliquis (Apixaban) 5 Mg Tablet 5 Mg PO BID 06/03/17 Reported Ferrous Sulfate 325 Mg Tablet 1 Tab PO TID 06/03/17 Reported Coreg (Carvedilol) 6.25 Mg Tablet 1 Tab PO BID 06/03/17 Reported Atorvastatin Calcium 20 Mg Tablet 20 Mg PO HS 06/03/17 Reported Novolog Flexpen (Insulin Aspart) 100 Unit/1 Ml Insuln.pen 0 Units SQ TIDWMEALS 30 01/12/17 Rx Levemir Flextouch (Insulin Detemir) 100 Unit/1 Ml Insuln.pen 20 Units SQ QHS 30 01/12/17 Rx Pravastatin Sodium 20 Mg Tablet 20 Mg PO DAILY 06/26/13 Reported Impression . 1. Abnormal CT chest revealing mild airspace disease LLL with suspected pneumonia. 2. A 4 mm left lingular pulmonary nodule. 3. Tobacco dependence, in remission, quit in 1979. 4. Leukocytosis. 5. Possible sepsis. 6. Bacteremia. 7. End-stage renal disease. 8. Chronic toe wound on the right. 9. History of Enterobacter sepsis. 10. Cardiomyopathy with ejection fraction of 35%. 11. Prior history of cerebrovascular accident. 12. History of gout, diabetes and hypertension. Plan . 1. The patient is currently receiving Zosyn and vancomycin,ID following 2. We will follow clinical course and make further recommendations. 3. Follow Infectious Diseases recommendation. 4. Repeat CT chest in 6 months. 5. P.r.n. nebulized treatments. 6. Deep venous thrombosis and gastrointestinal prophylaxis. RIAZ FAITH MD Jan 14, 2018 10:17
--- NOTE | 2018-01-14 10:44 | PDOC ---
Infectious Disease Note Subjective Subjective Feels roughly the same but did eat some Had a loose stool this am No F/C/S/N/V/SOA/Rash or gross pain ROS ROS o/w neg Vital Sign Vital Signs Vital Signs Date Time Temp Pulse Resp B/P (MAP) Pulse Ox O2 Delivery O2 Flow Rate FiO2 01/14/18 09:08 76 114/64 01/14/18 08:00 Room Air 01/14/18 07:00 97.6 20 94 97.6 01/13/18 22:39 2.0 Physical Exam PHYSICAL EXAM CONSTITUTIONAL: He is lying in bed. He is currently on his right side. He is pleasant. He is cooperative, but he is hard of hearing. He is in no acute distress. Looks a little better HEENT: Pupils are equal and reactive. Oral cavity, pharynx is clear, with some questionable dentition. NECK: Supple, no JVD. LUNGS: Clear to auscultation bilaterally. HEART: S1, S2. ABDOMEN: Obese, soft, nontender and nondistended. EXTREMITIES: No clubbing or cyanosis. Right lower extremity is in the cast. His left upper extremity has AV fistula, without signs of any complications. NEUROLOGIC: He is alert and oriented. He has no focal defects appreciated. SKIN: Warm to touch, without signs of generalized rash, but he does have some scabbing on his right upper extremity. IV site is clean Labs Lab Laboratory Tests Test 01/13/18 12:00 01/13/18 16:27 01/13/18 18:10 01/13/18 20:12 Glucose (Fingerstick) 160 mg/dL (70-99) 97 mg/dL (70-99) 121 mg/dL (70-99) 170 mg/dL (70-99) Test 01/14/18 04:15 01/14/18 07:46 White Blood Count 7.3 x10^3/uL (4.0-11.0) Red Blood Count 3.08 x10^6/uL (4.30-5.70) Hemoglobin 10.7 g/dL (13.0-17.5) Hematocrit 30.6 % (39.0-53.0) Mean Corpuscular Volume 99 fL (79-100) Mean Corpuscular Hemoglobin 35 pg (25-35) Mean Corpuscular Hemoglobin Concent 35 g/dL (31-37) Red Cell Distribution Width 13.7 % (11.5-14.5) Platelet Count 97 x10^3/uL (140-400) Neutrophils (%) (Auto) 76 % (31-73) Lymphocytes (%) (Auto) 11 % (24-48) Monocytes (%) (Auto) 11 % (0-9) Eosinophils (%) (Auto) 1 % (0-3) Basophils (%) (Auto) 1 % (0-3) Neutrophils # (Auto) 5.5 x10^3uL (1.8-7.7) Lymphocytes # (Auto) 0.8 x10^3/uL (1.0-4.8) Monocytes # (Auto) 0.8 x10^3/uL (0.0-1.1) Eosinophils # (Auto) 0.1 x10^3/uL (0.0-0.7) Basophils # (Auto) 0.1 x10^3/uL (0.0-0.2) Sodium Level 135 mmol/L (136-145) Potassium Level 3.9 mmol/L (3.5-5.1) Chloride Level 97 mmol/L (98-107) Carbon Dioxide Level 28 mmol/L (21-32) Anion Gap 10 (6-14) Blood Urea Nitrogen 47 mg/dL (8-26) Creatinine 6.5 mg/dL (0.7-1.3) Estimated GFR (Cockcroft-Gault) 8.5 Glucose Level 138 mg/dL (70-99) Calcium Level 7.5 mg/dL (8.5-10.1) Glucose (Fingerstick) 146 mg/dL (70-99) Micro Microbiology 01/12/18 Blood Culture - Final, Complete Objective Assessment Bacteremia 05/14 bottles 01/12 GNR and now ? GPC Leukocytosis - better CKD on HD M/W/F S/p cat scratches to R hand/arm - no gross cellulitis Toe wound on right - casted changed Q tues. States on abx at home but cannot remember which one N/V H/o Enterobacter sepsis December 2016 Plan Plan of Care Cont Vanc Adjust zosyn to q 8 Add probiotics F/u labs and cults F/u C-diff Await wound care f/u - will need cast removed VIRIDIANA ARANA MD Jan 14, 2018 10:43
[2018-01-14 11:00] VITALS: BP 99/46
--- NOTE | 2018-01-14 11:33 | PDOC ---
PROGRESS NOTES History of Present Illness History of Present Illness Assessment/Plan Assessment/Plan N/V, diarrhea fever 1/2 bacteremia doubt PNA htn dm2 ESRD on HD mwf pafib on eliquis h/o left kidney Ca s/p nephrectomy CT showed 4mm lung nodule sepsis Mild left lung base airspace opacities likely atelectasis or infiltrate. plan: renal, ID consult cont home meds, on lasix bid lantus 20u qhs, ssi cont HD fu bcx, on zosyn and vanco wound care doc consult, cont eliquis dvt ppx PTOT check cdiff asked pt to fu with pcp for small lung nodule Vitals Vitals Vital Signs Date Time Temp Pulse Resp B/P (MAP) Pulse Ox O2 Delivery O2 Flow Rate FiO2 01/14/18 09:08 76 114/64 01/14/18 08:00 Room Air 01/14/18 07:00 97.6 20 94 97.6 01/13/18 22:39 2.0 Physical Exam Physical Exam CONSTITUTIONAL: He is lying in bed. He is currently on his right side. He is pleasant. He is cooperative, but he is hard of hearing. He is in no acute distress. Looks a little better HEENT: Pupils are equal and reactive. Oral cavity, pharynx is clear, with some questionable dentition. NECK: Supple, no JVD. LUNGS: Clear to auscultation bilaterally. HEART: S1, S2. ABDOMEN: Obese, soft, nontender and nondistended. EXTREMITIES: No clubbing or cyanosis. Right lower extremity is in the cast. His left upper extremity has AV fistula, without signs of any complications. NEUROLOGIC: He is alert and oriented. He has no focal defects appreciated. SKIN: Warm to touch, without signs of generalized rash, but he does have some scabbing on his right upper extremity. IV site is clean General: Oriented X3, Cooperative Heart: Regular rate Lungs: Clear Abdomen: Soft Extremities: No clubbing, No cyanosis Labs LABS PROCEDURE: CT CHEST ABDOMEN PELVIS WO Examination: CT of the chest abdomen pelvis without contrast HISTORY: History of fever, vomiting on dialysis COMPARISON: CT chest from 03/03/2005 TECHNIQUE: Axial CT images of the chest abdomen pelvis were performed without contrast. Coronal and sagittal reformats are performed Exposure: One or more of the following individualized dose reduction techniques were utilized for this examination: 1. Automated exposure control 2. Adjustment of the mA and/or kV according to patient size 3. Use of iterative reconstruction technique FINDINGS: The central airways are patent. Small subcentimeter mediastinal lymph nodes identified with the largest measuring 9 mm in the pretracheal region. Mild cardiomegaly. Coronary artery calcifications. There is a 4 mm nodule identified in the left lingula of the lung. No evidence of pleural effusion or pneumothorax. Mild left lung base airspace opacity likely atelectasis or infiltrate. The visualized noncontrasted liver, adrenals grossly appears unremarkable. Calcified granulomas identified in the spleen. The gallbladder is mildly distended probable tiny gallstone or polyp measuring 3 mm identified in the gallbladder. The stomach is mildly distended. The visualized pancreas grossly appears unremarkable. The small bowel is nondilated. Appendix is normal. Feces and gas noted in the colon. Few sigmoid colon diverticulosis. Minimal amount of fluid identified in the pelvis. Urinary bladder is mildly distended. The left kidney is not identified. Multiple cystic structures identified in the right kidney the largest measuring 9 mm. Moderate aortic atherosclerosis. Severe degenerative changes thoracic and lumbar spine. IMPRESSION: 1. Mild left lung base airspace opacities likely atelectasis or infiltrate. 2. Absent left kidney. 3. Mild sigmoid colon diverticulosis. Minimal amount of free fluid identified in the pelvis, nonspecific. 4. Cystic structure identified in the right kidney could be cysts or cystic lesions. 5. Tiny 3 mm density identified in the gallbladder could be polyp or stone. 6. 4 mm nodule identified in the left lingula. Follow-up effusions articulates with follow-up CT chest in 6 months. Electronically signed by: William Roberts MD (01/12/2018 6:42 PM) [facility] Laboratory Tests Test 01/13/18 12:00 01/13/18 16:27 01/13/18 18:10 01/13/18 20:12 Glucose (Fingerstick) 160 mg/dL (70-99) 97 mg/dL (70-99) 121 mg/dL (70-99) 170 mg/dL (70-99) Test 01/14/18 04:15 01/14/18 07:46 White Blood Count 7.3 x10^3/uL (4.0-11.0) Red Blood Count 3.08 x10^6/uL (4.30-5.70) Hemoglobin 10.7 g/dL (13.0-17.5) Hematocrit 30.6 % (39.0-53.0) Mean Corpuscular Volume 99 fL (79-100) Mean Corpuscular Hemoglobin 35 pg (25-35) Mean Corpuscular Hemoglobin Concent 35 g/dL (31-37) Red Cell Distribution Width 13.7 % (11.5-14.5) Platelet Count 97 x10^3/uL (140-400) Neutrophils (%) (Auto) 76 % (31-73) Lymphocytes (%) (Auto) 11 % (24-48) Monocytes (%) (Auto) 11 % (0-9) Eosinophils (%) (Auto) 1 % (0-3) Basophils (%) (Auto) 1 % (0-3) Neutrophils # (Auto) 5.5 x10^3uL (1.8-7.7) Lymphocytes # (Auto) 0.8 x10^3/uL (1.0-4.8) Monocytes # (Auto) 0.8 x10^3/uL (0.0-1.1) Eosinophils # (Auto) 0.1 x10^3/uL (0.0-0.7) Basophils # (Auto) 0.1 x10^3/uL (0.0-0.2) Sodium Level 135 mmol/L (136-145) Potassium Level 3.9 mmol/L (3.5-5.1) Chloride Level 97 mmol/L (98-107) Carbon Dioxide Level 28 mmol/L (21-32) Anion Gap 10 (6-14) Blood Urea Nitrogen 47 mg/dL (8-26) Creatinine 6.5 mg/dL (0.7-1.3) Estimated GFR (Cockcroft-Gault) 8.5 Glucose Level 138 mg/dL (70-99) Calcium Level 7.5 mg/dL (8.5-10.1) Glucose (Fingerstick) 146 mg/dL (70-99) Assessment and Plan Assessmemt and Plan Problems Medical Problems: (1) Pneumonia Status: Acute Comment Review of Relevant I have reviewed the following items jennifer (where applicable) has been applied. Labs Laboratory Tests Test 01/12/18 18:05 01/13/18 07:46 01/13/18 12:00 01/13/18 16:27 White Blood Count 14.1 x10^3/uL (4.0-11.0) Red Blood Count 3.51 x10^6/uL (4.30-5.70) Hemoglobin 12.0 g/dL (13.0-17.5) Hematocrit 35.1 % (39.0-53.0) Mean Corpuscular Volume 100 fL (79-100) Mean Corpuscular Hemoglobin 34 pg (25-35) Mean Corpuscular Hemoglobin Concent 34 g/dL (31-37) Red Cell Distribution Width 13.4 % (11.5-14.5) Platelet Count 123 x10^3/uL (140-400) Neutrophils (%) (Auto) 92 % (31-73) Lymphocytes (%) (Auto) 2 % (24-48) Monocytes (%) (Auto) 5 % (0-9) Eosinophils (%) (Auto) 0 % (0-3) Basophils (%) (Auto) 1 % (0-3) Neutrophils # (Auto) 13.0 x10^3uL (1.8-7.7) Lymphocytes # (Auto) 0.3 x10^3/uL (1.0-4.8) Monocytes # (Auto) 0.7 x10^3/uL (0.0-1.1) Eosinophils # (Auto) 0.0 x10^3/uL (0.0-0.7) Basophils # (Auto) 0.1 x10^3/uL (0.0-0.2) Segmented Neutrophils % 81 % (35-66) Band Neutrophils % 7 % (0-9) Lymphocytes % 5 % (24-48) Monocytes % 7 % (0-10) Platelet Estimate Decreased (ADEQUATE) Erythrocyte Sedimentation Rate 38 (0-15) Sodium Level 135 mmol/L (136-145) Potassium Level 4.3 mmol/L (3.5-5.1) Chloride Level 94 mmol/L (98-107) Carbon Dioxide Level 31 mmol/L (21-32) Anion Gap 10 (6-14) Blood Urea Nitrogen 73 mg/dL (8-26) Creatinine 8.4 mg/dL (0.7-1.3) Estimated GFR (Cockcroft-Gault) 6.3 BUN/Creatinine Ratio 9 (6-20) Glucose Level 209 mg/dL (70-99) Lactic Acid Level 2.7 mmol/L (0.4-2.0) Calcium Level 8.8 mg/dL (8.5-10.1) Total Bilirubin 0.9 mg/dL (0.2-1.0) Aspartate Amino Transf (AST/SGOT) 11 U/L (15-37) Alanine Aminotransferase (ALT/SGPT) 25 U/L (16-63) Alkaline Phosphatase 123 U/L (46-116) Troponin I Quantitative 0.047 ng/mL (0.000-0.055) ZZ-Lze-T-Type Natriuretic Peptide 51996 pg/mL (0-124) Total Protein 7.8 g/dL (6.4-8.2) Albumin 3.8 g/dL (3.4-5.0) Albumin/Globulin Ratio 1.0 (1.0-1.7) Lipase 101 U/L (73-393) Glucose (Fingerstick) 142 mg/dL (70-99) 160 mg/dL (70-99) 97 mg/dL (70-99) Test 01/13/18 18:10 01/13/18 20:12 01/14/18 04:15 01/14/18 07:46 Glucose (Fingerstick) 121 mg/dL (70-99) 170 mg/dL (70-99) 146 mg/dL (70-99) White Blood Count 7.3 x10^3/uL (4.0-11.0) Red Blood Count 3.08 x10^6/uL (4.30-5.70) Hemoglobin 10.7 g/dL (13.0-17.5) Hematocrit 30.6 % (39.0-53.0) Mean Corpuscular Volume 99 fL (79-100) Mean Corpuscular Hemoglobin 35 pg (25-35) Mean Corpuscular Hemoglobin Concent 35 g/dL (31-37) Red Cell Distribution Width 13.7 % (11.5-14.5) Platelet Count 97 x10^3/uL (140-400) Neutrophils (%) (Auto) 76 % (31-73) Lymphocytes (%) (Auto) 11 % (24-48) Monocytes (%) (Auto) 11 % (0-9) Eosinophils (%) (Auto) 1 % (0-3) Basophils (%) (Auto) 1 % (0-3) Neutrophils # (Auto) 5.5 x10^3uL (1.8-7.7) Lymphocytes # (Auto) 0.8 x10^3/uL (1.0-4.8) Monocytes # (Auto) 0.8 x10^3/uL (0.0-1.1) Eosinophils # (Auto) 0.1 x10^3/uL (0.0-0.7) Basophils # (Auto) 0.1 x10^3/uL (0.0-0.2) Sodium Level 135 mmol/L (136-145) Potassium Level 3.9 mmol/L (3.5-5.1) Chloride Level 97 mmol/L (98-107) Carbon Dioxide Level 28 mmol/L (21-32) Anion Gap 10 (6-14) Blood Urea Nitrogen 47 mg/dL (8-26) Creatinine 6.5 mg/dL (0.7-1.3) Estimated GFR (Cockcroft-Gault) 8.5 Glucose Level 138 mg/dL (70-99) Calcium Level 7.5 mg/dL (8.5-10.1) Laboratory Tests Test 01/13/18 12:00 01/13/18 16:27 01/13/18 18:10 01/13/18 20:12 Glucose (Fingerstick) 160 mg/dL (70-99) 97 mg/dL (70-99) 121 mg/dL (70-99) 170 mg/dL (70-99) Test 01/14/18 04:15 01/14/18 07:46 White Blood Count 7.3 x10^3/uL (4.0-11.0) Red Blood Count 3.08 x10^6/uL (4.30-5.70) Hemoglobin 10.7 g/dL (13.0-17.5) Hematocrit 30.6 % (39.0-53.0) Mean Corpuscular Volume 99 fL (79-100) Mean Corpuscular Hemoglobin 35 pg (25-35) Mean Corpuscular Hemoglobin Concent 35 g/dL (31-37) Red Cell Distribution Width 13.7 % (11.5-14.5) Platelet Count 97 x10^3/uL (140-400) Neutrophils (%) (Auto) 76 % (31-73) Lymphocytes (%) (Auto) 11 % (24-48) Monocytes (%) (Auto) 11 % (0-9) Eosinophils (%) (Auto) 1 % (0-3) Basophils (%) (Auto) 1 % (0-3) Neutrophils # (Auto) 5.5 x10^3uL (1.8-7.7) Lymphocytes # (Auto) 0.8 x10^3/uL (1.0-4.8) Monocytes # (Auto) 0.8 x10^3/uL (0.0-1.1) Eosinophils # (Auto) 0.1 x10^3/uL (0.0-0.7) Basophils # (Auto) 0.1 x10^3/uL (0.0-0.2) Sodium Level 135 mmol/L (136-145) Potassium Level 3.9 mmol/L (3.5-5.1) Chloride Level 97 mmol/L (98-107) Carbon Dioxide Level 28 mmol/L (21-32) Anion Gap 10 (6-14) Blood Urea Nitrogen 47 mg/dL (8-26) Creatinine 6.5 mg/dL (0.7-1.3) Estimated GFR (Cockcroft-Gault) 8.5 Glucose Level 138 mg/dL (70-99) Calcium Level 7.5 mg/dL (8.5-10.1) Glucose (Fingerstick) 146 mg/dL (70-99) Microbiology 01/12/18 Blood Culture - Final, Complete Medications Current Medications Piperacillin Sod/ Tazobactam Sod (Zosyn Per Pharmacy) 1 each PRN DAILY PRN MC SEE COMMENTS; Start 01/12/18 at 19:15; Stop 01/13/18 at 11:24; Status DC Vancomycin HCl (Vanco Per Pharmacy) 1 each PRN DAILY PRN MC SEE COMMENTS Last administered on 01/13/18at 15:27; Start 01/12/18 at 19:15 Vancomycin HCl 2 gm/Sodium Chloride 500 ml @ 250 mls/hr 1X ONCE IV Last administered on 01/12/18at 20:08; Start 01/12/18 at 20:00; Stop 01/12/18 at 21:59; Status DC Piperacillin Sod/ Tazobactam Sod 2.25 gm/Sodium Chloride 50 ml @ 100 mls/hr 1X ONCE IV Last administered on 01/12/18at 19:31; Start 01/12/18 at 19:30; Stop 01/12/18 at 19:59; Status DC Ondansetron HCl (Zofran) 4 mg PRN Q8HRS PRN IV NAUSEA/VOMITING; Start 01/12/18 at 19:30; Stop 01/13/18 at 19:29; Status DC Piperacillin Sod/ Tazobactam Sod 2.25 gm/Sodium Chloride 50 ml @ 100 mls/hr Q6HRS IV Last administered on 01/13/18at 11:11; Start 01/13/18 at 00:00; Stop 01/13 at 11:24; Status DC Vancomycin HCl (Vancomycin Random Level) 1 each 1X ONCE MC ; Start 01/15/18 at 06:00; Stop 01/15/18 at 06:01 Acetaminophen (Tylenol) 650 mg PRN Q6HRS PRN PO FEVER; Start 01/13/18 at 08:45 Ondansetron HCl (Zofran) 4 mg PRN Q6HRS PRN IV NAUSEA/VOMITING; Start 01/13/18 at 08:45 Morphine Sulfate (Morphine Sulfate) 2 mg PRN Q2HR PRN IV MODERATE TO SEVERE PAIN; Start 01/13/18 at 08:45 Tramadol HCl (Ultram) 50 mg PRN Q6HRS PRN PO MILD TO MODERATE PAIN; Start at 08:45 Docusate Sodium (Colace) 100 mg PRN DAILY PRN PO CONSTIPATION; Start 01/13/18 at 08:45 Allopurinol (Zyloprim) 100 mg DAILY PO Last administered on 01/14/18at 09:07; Start 01/13/18 at 09:00 Apixaban (Eliquis) 5 mg BID PO Last administered on 01/14/18at 09:07; Start at 09:00 Atorvastatin Calcium (Lipitor) 20 mg HS PO Last administered on 01/13/18at 20:42 ; Start 01/13/18 at 21:00 Carvedilol (Coreg) 6.25 mg BIDWMEALS PO Last administered on 01/14/18at 09:08; Start 01/13/18 at 09:00 Cinacalcet (Sensipar) 60 mg DAILY PO Last administered on 01/14/18 09:07; Start 01/13/18 at 09:00 Ferrous Sulfate (Feosol) 325 mg TID PO Last administered on 01/14/18at 09:07; Start 01/13/18 at 09:00 Furosemide (Lasix) 40 mg [id number] PO Last administered on 01/14/18 09:07; Start at 09:00 Sevelamer Carbonate (Renvela) 2,400 mg TIDWMEALS PO Last administered on 09:07; Start 01/13/18 at 09:00 Insulin Glargine (Lantus) 20 units QHS SQ Last administered on 01/13/18at 20:47; Start 01/13/18 at 21:00 Atorvastatin Calcium (Lipitor) 5 mg QHS PO ; Start 01/13/18 at 21:00; Status Cancel Insulin Human Lispro (HumaLOG) 0-9 UNITS TIDWMEALS SQ Last administered on at 12:29; Start 01/13/18 at 12:00 Dextrose (Dextrose 50%-Water Syringe) 12.5 gm PRN Q15MIN PRN IV SEE COMMENTS; Start 01/13/18 at 08:45 Piperacillin Sod/ Tazobactam Sod 2.25 gm/Sodium Chloride 50 ml @ 100 mls/hr Q8HRS IV Last administered on 01/14/18at 05:50; Start 01/13/18 at 14:00 Lactobacillus Rhamnosus (Culturelle) 1 cap BID PO Last administered on at 09:07; Start 01/13/18 at 21:00 Sodium Chloride 1,000 ml @ 1,000 mls/hr Q1H PRN IV hypotension; Start 01/13/18 at 12:00; Stop 01/13/18 at 17:59; Status DC Sodium Chloride 1,000 ml @ 400 mls/hr Q2H30M PRN IV PATENCY; Start 01/13/18 at 12:00; Stop 01/13/18 at 23:59; Status DC Info (PHARMACY MONITORING -- do not chart) 1 each PRN DAILY PRN MC SEE COMMENTS ; Start 01/13/18 at 15:30 Info (PHARMACY MONITORING -- do not chart) 1 each PRN DAILY PRN MC SEE COMMENTS ; Start 01/13/18 at 15:30; Status UNV Albuterol Sulfate (Ventolin Neb Soln) 2.5 mg PRN Q4HRS PRN NEB SHORTNESS OF BREATH; Start 01/13/18 at 16:45 Ascorbic Acid (Vitamin C) 500 mg DAILY PO Last administered on 01/14/18at 09:07; Start 01/14/18 at 09:30 Vitamin B Complex/ Vitamin C (Mindy-Maureen) 1 tab DAILY PO Last administered on 01/14/18at 09:07; Start 01/14/18 at 09:30 Active Scripts Active Culturelle (Lactobacillus Rhamnosus Gg) 1 Each Cap.sprink 1 Cap PO BID Cefpodoxime Proxetil 100 Mg Tablet 200 Mg PO BID Allopurinol 100 Mg Tablet 100 Mg PO DAILY Novolog Flexpen (Insulin Aspart) 100 Unit/1 Ml Insuln.pen 0 Units SQ TIDWMEALS 30 Days Levemir Flextouch (Insulin Detemir) 100 Unit/1 Ml Insuln.pen 20 Units SQ QHS 30 Days Reported Renvela (Sevelamer Carbonate) 800 Mg Tablet 3 Tab PO TID Entresto 49 mg-51 mg Tablet (Sacubitril/Valsartan) 1 Each Tablet 1 Each PO Lasix (Furosemide) 40 Mg Tablet 40 Mg PO BID Sensipar (Cinacalcet Hcl) 30 Mg Tablet 60 Mg PO DAILY Eliquis (Apixaban) 5 Mg Tablet 5 Mg PO BID Ferrous Sulfate 325 Mg Tablet 1 Tab PO TID Coreg (Carvedilol) 6.25 Mg Tablet 1 Tab PO BID Atorvastatin Calcium 20 Mg Tablet 20 Mg PO HS Pravastatin Sodium 20 Mg Tablet 20 Mg PO DAILY Vitals/I & O Vital Sign - Last 24 Hours 01/13/18 01/13/18 01/13/18 01/13/18 18:11 18:16 19:04 19:51 Temp 98.1 98.1 Pulse 78 78 79 Resp 18 B/P (MAP) 115/65 (82) 115/65 119/63 (81) Pulse Ox 97 95 96 O2 Delivery Room Air Nasal Cannula Room Air O2 Flow Rate 2.0 01/13/18 01/13/18 01/14/18 01/14/18 20:00 22:39 02:31 07:00 Temp 99.4 99.0 97.6 99.4 99.0 97.6 Pulse 96 77 76 Resp 18 16 20 B/P (MAP) 94/46 (62) 138/62 (87) 114/64 (81) Pulse Ox 96 94 94 O2 Delivery Room Air Nasal Cannula Room Air Room Air O2 Flow Rate 2.0 01/14/18 01/14/18 08:00 09:08 Pulse 76 B/P (MAP) 114/64 O2 Delivery Room Air Intake and Output 01/13/18 01/13/18 01/14/18 15:00 23:00 07:00 Intake Total 600 ml 1100 ml 400 ml Balance 600 ml 1100 ml 400 ml VERENA OROZCO MD Jan 14, 2018 11:33
--- NOTE | 2018-01-14 11:53 | PDOC ---
SUBJECTIVE ROS Lying comfortably, no new concerns OBJECTIVE Vital Signs Vital Signs Date Time Temp Pulse Resp B/P (MAP) Pulse Ox O2 Delivery O2 Flow Rate FiO2 01/14/18 09:08 76 114/64 01/14/18 08:00 Room Air 01/14/18 07:00 97.6 20 94 97.6 01/13/18 22:39 2.0 I & 0 Intake and Output 01/14/18 07:00 Intake Total 2100 ml Balance 2100 ml Intake Oral 2100 ml PHYSICAL EXAM Physical Exam GEN: NAD HENT : Om Moist, On RA NECK: No JVD, supple CVS: RRR RESP: Few Crackles bases GI: BS + ve, NO Bruit, Non Tender, Non Distended : No CVA or SP tenderness, No [place] Skin No rash Ext- Lt Arm AV access Neuro- AxO x3 DIAGNOSIS/ASSESSMENT Assessment & Plan ESRD- MWF E-Lytes, Vol status stable Dialysis tomorrow as per his schedule Bacteremia- Id following Hx of left kidney Ca s/p nephrectomy Ct scan -- 1. Mild left lung base airspace opacities likely atelectasis or infiltrate. 2. Absent left kidney. 3. Mild sigmoid colon diverticulosis. Minimal amount of free fluid identified in the pelvis, nonspecific. 4. Cystic structure identified in the right kidney could be cysts or cystic lesions. 5. Tiny 3 mm density identified in the gallbladder could be polyp or stone. 6. 4 mm nodule identified in the left lingula. Follow-up effusions articulates with follow-up CT chest in 6 months. Electronically signed by: William Roberts MD (01/12/2018 6:42 PM) [facility] COMMENT/RELEVANT DATA Meds Current Medications Medications (Trade) Dose Ordered Sig/Esperanza Start Time Stop Time Status Last Admin Dose Admin Acetaminophen (Tylenol) 650 mg PRN Q6HRS PRN 01/13/18 08:45 Albuterol Sulfate (Ventolin Neb Soln) 2.5 mg PRN Q4HRS PRN 01/13/18 16:45 Allopurinol (Zyloprim) 100 mg DAILY 01/13/18 09:00 01/14/18 09:07 100 MG Apixaban (Eliquis) 5 mg BID 01/13/18 09:00 01/14/18 09:07 5 MG Ascorbic Acid (Vitamin C) 500 mg DAILY 01/14/18 09:30 01/14/18 09:07 500 MG Atorvastatin Calcium (Lipitor) 5 mg QHS 01/13/18 21:00 Cancel Carvedilol (Coreg) 6.25 mg BIDWMEALS 01/13/18 09:00 01/14/18 09:08 6.25 MG Cinacalcet (Sensipar) 60 mg DAILY 01/13/18 09:00 01/14/18 09:07 60 MG Dextrose (Dextrose 50%-Water Syringe) 12.5 gm PRN Q15MIN PRN 01/13/18 08:45 Docusate Sodium (Colace) 100 mg PRN DAILY PRN 01/13/18 08:45 Ferrous Sulfate (Feosol) 325 mg TID 01/13/18 09:00 01/14/18 09:07 325 MG Furosemide (Lasix) 40 mg [id number] 01/13/18 09:00 01/14/18 09:07 40 MG Info (Anti-Coagulation Monitoring By Pharmacy) 1 each PRN DAILY PRN 01/14/18 11:45 Info (PHARMACY MONITORING -- do not chart) 1 each PRN DAILY PRN 01/13/18 15:30 UNV Insulin Glargine (Lantus) 20 units QHS 01/13/18 21:00 01/13/18 20:47 20 UNITS Insulin Human Lispro (HumaLOG) 0-9 UNITS TIDWMEALS 01/13/18 12:00 01/13/18 12:29 4 UNITS Lactobacillus Rhamnosus (Culturelle) 1 cap BID 01/13/18 21:00 01/14/18 09:07 1 CAP Morphine Sulfate (Morphine Sulfate) 2 mg PRN Q2HR PRN 01/13/18 08:45 Ondansetron HCl (Zofran) 4 mg PRN Q6HRS PRN 01/13/18 08:45 Piperacillin Sod/ Tazobactam Sod (Zosyn Per Pharmacy) 1 each PRN DAILY PRN 01/12/18 19:15 01/13/18 11:24 DC Piperacillin Sod/ Tazobactam Sod 2.25 gm/Sodium Chloride 50 ml @ 100 mls/hr Q8HRS 01/13/18 14:00 01/14/18 05:50 100 MLS/HR Sevelamer Carbonate (Renvela) 2,400 mg TIDWMEALS 01/13/18 09:00 01/14/18 09:07 2,400 MG Sodium Chloride 1,000 ml @ 400 mls/hr Q2H30M PRN 01/13/18 12:00 01/13/18 23:59 DC Tramadol HCl (Ultram) 50 mg PRN Q6HRS PRN 01/13/18 08:45 Vancomycin HCl (Vanco Per Pharmacy) 1 each PRN DAILY PRN 01/12/18 19:15 01/13/18 15:27 1 EACH Vancomycin HCl (Vancomycin Random Level) 1 each 1X ONCE 01/15/18 06:00 01/15/18 06:01 Vancomycin HCl 2 gm/Sodium Chloride 500 ml @ 250 mls/hr 1X ONCE 01/12/18 20:00 01/12/18 21:59 DC 01/12/18 20:08 250 MLS/HR Vitamin B Complex/ Vitamin C (Mindy-Maureen) 1 tab DAILY 01/14/18 09:30 01/14/18 09:07 1 TAB Lab Laboratory Tests Test 01/13/18 12:00 01/13/18 16:27 01/13/18 18:10 01/13/18 20:12 Glucose (Fingerstick) 160 mg/dL (70-99) 97 mg/dL (70-99) 121 mg/dL (70-99) 170 mg/dL (70-99) Test 01/14/18 04:15 01/14/18 07:46 White Blood Count 7.3 x10^3/uL (4.0-11.0) Red Blood Count 3.08 x10^6/uL (4.30-5.70) Hemoglobin 10.7 g/dL (13.0-17.5) Hematocrit 30.6 % (39.0-53.0) Mean Corpuscular Volume 99 fL (79-100) Mean Corpuscular Hemoglobin 35 pg (25-35) Mean Corpuscular Hemoglobin Concent 35 g/dL (31-37) Red Cell Distribution Width 13.7 % (11.5-14.5) Platelet Count 97 x10^3/uL (140-400) Neutrophils (%) (Auto) 76 % (31-73) Lymphocytes (%) (Auto) 11 % (24-48) Monocytes (%) (Auto) 11 % (0-9) Eosinophils (%) (Auto) 1 % (0-3) Basophils (%) (Auto) 1 % (0-3) Neutrophils # (Auto) 5.5 x10^3uL (1.8-7.7) Lymphocytes # (Auto) 0.8 x10^3/uL (1.0-4.8) Monocytes # (Auto) 0.8 x10^3/uL (0.0-1.1) Eosinophils # (Auto) 0.1 x10^3/uL (0.0-0.7) Basophils # (Auto) 0.1 x10^3/uL (0.0-0.2) Sodium Level 135 mmol/L (136-145) Potassium Level 3.9 mmol/L (3.5-5.1) Chloride Level 97 mmol/L (98-107) Carbon Dioxide Level 28 mmol/L (21-32) Anion Gap 10 (6-14) Blood Urea Nitrogen 47 mg/dL (8-26) Creatinine 6.5 mg/dL (0.7-1.3) Estimated GFR (Cockcroft-Gault) 8.5 Glucose Level 138 mg/dL (70-99) Calcium Level 7.5 mg/dL (8.5-10.1) Glucose (Fingerstick) 146 mg/dL (70-99) Results All relevant outside records, renal labs, imaging studies, telemetry/EKG's were reviewed. TREVIN CERNA MD Jan 14, 2018 11:53
[2018-01-14] MEDS: VANCOMYCIN PER PHARMACY MC PRN (13:52)
[2018-01-14] MEDS: ANTI-COAG MONITOR BY PHARMACY. MC PRN (13:59)
[2018-01-14 15:00] VITALS: BP 119/55
[2018-01-14] MEDS ORDERED: VANCOMYCIN 500 MG in IV NORMAL SALINE 100ML 100 ML IV ONE (15:00)
--- NOTE | 2018-01-14 15:11 | PDOC2 ---
ANNALISA RICO AC/DC REWINDER 01/14/18 1511: CONSULT Date of Consult Date of Consult DATE: 01/14/18 TIME: 14:48 Reason for Consult Reason for Consult: Wound care for chronic, right great toe DFU/Minaya 1 with fat layer exposure, f/ u. History of Present Illness Reason for Visit: Prior to hospitalization, pt followed in the [facility] at [facility] for Minaya 1 DFU of his right plantar great toe. Pt placed in Profore cast 1 week ago while in the clinic for offloading. Past Medical History Cardiovascular: AFIB, CAD, CHF, HTN GI: Constipation, GERD Heme/Onc: Anemia NOS Renal/: Chronic renal failure, Other Endocrine: Diabetes, Hyperparathyroidism Past Surgical History Past Surgical History: Other Family History Family History: Hypertension Social History Quit ALCOHOL: none Drugs: None Lives: [facility] Current Problem List Problem List Problems Medical Problems: (1) Pneumonia Status: Acute Current Medications Current Medications Current Medications Piperacillin Sod/ Tazobactam Sod (Zosyn Per Pharmacy) 1 each PRN DAILY PRN MC SEE COMMENTS; Start 01/12/18 at 19:15; Stop 01/13/18 at 11:24; Status DC Vancomycin HCl (Vanco Per Pharmacy) 1 each PRN DAILY PRN MC SEE COMMENTS Last administered on 01/14/18at 13:52; Start 01/12/18 at 19:15 Vancomycin HCl 2 gm/Sodium Chloride 500 ml @ 250 mls/hr 1X ONCE IV Last administered on 01/12/18at 20:08; Start 01/12/18 at 20:00; Stop 01/12/18 at 21:59; Status DC Piperacillin Sod/ Tazobactam Sod 2.25 gm/Sodium Chloride 50 ml @ 100 mls/hr 1X ONCE IV Last administered on 01/12/18at 19:31; Start 01/12/18 at 19:30; Stop 01/12/18 at 19:59; Status DC Ondansetron HCl (Zofran) 4 mg PRN Q8HRS PRN IV NAUSEA/VOMITING; Start 01/12/18 at 19:30; Stop 01/13/18 at 19:29; Status DC Piperacillin Sod/ Tazobactam Sod 2.25 gm/Sodium Chloride 50 ml @ 100 mls/hr Q6HRS IV Last administered on 01/13/18at 11:11; Start 01/13/18 at 00:00; Stop 01/13 at 11:24; Status DC Vancomycin HCl (Vancomycin Random Level) 1 each 1X ONCE MC ; Start 01/15/18 at 06:00; Stop 01/15/18 at 06:00; Status DC Acetaminophen (Tylenol) 650 mg PRN Q6HRS PRN PO FEVER; Start 01/13/18 at 08:45 Ondansetron HCl (Zofran) 4 mg PRN Q6HRS PRN IV NAUSEA/VOMITING; Start 01/13/18 at 08:45 Morphine Sulfate (Morphine Sulfate) 2 mg PRN Q2HR PRN IV MODERATE TO SEVERE PAIN; Start 01/13/18 at 08:45 Tramadol HCl (Ultram) 50 mg PRN Q6HRS PRN PO MILD TO MODERATE PAIN; Start at 08:45 Docusate Sodium (Colace) 100 mg PRN DAILY PRN PO CONSTIPATION; Start 01/13/18 at 08:45 Allopurinol (Zyloprim) 100 mg DAILY PO Last administered on 01/14/18at 09:07; Start 01/13/18 at 09:00 Apixaban (Eliquis) 5 mg BID PO Last administered on 01/14/18at 09:07; Start at 09:00 Atorvastatin Calcium (Lipitor) 20 mg HS PO Last administered on 01/13/18at 20:42 ; Start 01/13/18 at 21:00 Carvedilol (Coreg) 6.25 mg BIDWMEALS PO Last administered on 01/14/18at 09:08; Start 01/13/18 at 09:00 Cinacalcet (Sensipar) 60 mg DAILY PO Last administered on 01/14/18at 09:07; Start 01/13/18 at 09:00 Ferrous Sulfate (Feosol) 325 mg TID PO Last administered on 01/14/18 09:07; Start 01/13/18 at 09:00 Furosemide (Lasix) 40 mg BID92 PO Last administered on 01/14/18at 09:07; Start at 09:00 Sevelamer Carbonate (Renvela) 2,400 mg TIDWMEALS PO Last administered on at 13:00; Start 01/13/18 at 09:00 Insulin Glargine (Lantus) 20 units QHS SQ Last administered on 01/13/18at 20:47; Start 01/13/18 at 21:00 Atorvastatin Calcium (Lipitor) 5 mg QHS PO ; Start 01/13/18 at 21:00; Status Cancel Insulin Human Lispro (HumaLOG) 0-9 UNITS TIDWMEALS SQ Last administered on at 13:05; Start 01/13/18 at 12:00 Dextrose (Dextrose 50%-Water Syringe) 12.5 gm PRN Q15MIN PRN IV SEE COMMENTS; Start 01/13/18 at 08:45 Piperacillin Sod/ Tazobactam Sod 2.25 gm/Sodium Chloride 50 ml @ 100 mls/hr Q8HRS IV Last administered on 01/14/18at 05:50; Start 01/13/18 at 14:00 Lactobacillus Rhamnosus (Culturelle) 1 cap BID PO Last administered on at 09:07; Start 01/13/18 at 21:00 Sodium Chloride 1,000 ml @ 1,000 mls/hr Q1H PRN IV hypotension; Start 01/13/18 at 12:00; Stop 01/13/18 at 17:59; Status DC Sodium Chloride 1,000 ml @ 400 mls/hr Q2H30M PRN IV PATENCY; Start 01/13/18 at 12:00; Stop 01/13/18 at 23:59; Status DC Info (PHARMACY MONITORING -- do not chart) 1 each PRN DAILY PRN MC SEE COMMENTS ; Start 01/13/18 at 15:30 Info (PHARMACY MONITORING -- do not chart) 1 each PRN DAILY PRN MC SEE COMMENTS ; Start 01/13/18 at 15:30; Status UNV Albuterol Sulfate (Ventolin Neb Soln) 2.5 mg PRN Q4HRS PRN NEB SHORTNESS OF BREATH; Start 01/13/18 at 16:45 Ascorbic Acid (Vitamin C) 500 mg DAILY PO Last administered on 01/14/18at 09:07; Start 01/14/18 at 09:30 Vitamin B Complex/ Vitamin C (Mindy-Maureen) 1 tab DAILY PO Last administered on 01/14/18at 09:07; Start 01/14/18 at 09:30 Info (Anti-Coagulation Monitoring By Pharmacy) 1 each PRN DAILY PRN MC SEE COMMENTS Last administered on 01/14/18at 13:59; Start 01/14/18 at 11:45 Vancomycin HCl 500 mg/Sodium Chloride 100 ml @ 100 mls/hr ONCE ONCE IV ; Start 01/14/18 at 15:00; Stop 01/14/18 at 15:59 Vancomycin HCl 500 mg/Sodium Chloride 100 ml @ 100 mls/hr QMWF IV ; Start at 16:00 Active Scripts Active Culturelle (Lactobacillus Rhamnosus Gg) 1 Each Cap.sprink 1 Cap PO BID Cefpodoxime Proxetil 100 Mg Tablet 200 Mg PO BID Allopurinol 100 Mg Tablet 100 Mg PO DAILY Novolog Flexpen (Insulin Aspart) 100 Unit/1 Ml Insuln.pen 0 Units SQ TIDWMEALS 30 Days Levemir Flextouch (Insulin Detemir) 100 Unit/1 Ml Insuln.pen 20 Units SQ QHS 30 Days Reported Renvela (Sevelamer Carbonate) 800 Mg Tablet 3 Tab PO TID Entresto 49 mg-51 mg Tablet (Sacubitril/Valsartan) 1 Each Tablet 1 Each PO Lasix (Furosemide) 40 Mg Tablet 40 Mg PO BID Sensipar (Cinacalcet Hcl) 30 Mg Tablet 60 Mg PO DAILY Eliquis (Apixaban) 5 Mg Tablet 5 Mg PO BID Ferrous Sulfate 325 Mg Tablet 1 Tab PO TID Coreg (Carvedilol) 6.25 Mg Tablet 1 Tab PO BID Atorvastatin Calcium 20 Mg Tablet 20 Mg PO HS Pravastatin Sodium 20 Mg Tablet 20 Mg PO DAILY Allergies Allergies: Coded Allergies: nut - unspecified (Verified Allergy, Intermediate, 01/13/18) lisinopril (Verified Adverse Reaction, Intermediate, Cough, 12/27/16) ROS Review of System ROS negative except right great toe wound. Pt c/o productive cough. General: No: Chills, Night Sweats, Fatigue, Malaise, Appetite, Other PSYCHOLOGICAL ROS: No: Anxiety Gastrointestinal: Yes Diarrhea; No Nausea, No Vomiting, No Abdominal Pain Genitourinary: No Dysuria, No Frequency Musculoskeletal: No Gait Disturbance Neurological: No Confusion Physical Exam General: Alert, Oriented X3, Cooperative, No acute distress HEENT: Atraumatic, EOMI Abdomen: Soft, No tenderness Extremities: No clubbing, No edema, No tenderness/swelling Skin: No rashes, No breakdown, Other (Pt with right great toe DFU wound. Following cast removal purulent drainage present from wound bed. Wound cx obtained. No surrounding erythema or edema present. Eccymosis present surrounding wound bed extending 0.8cm. Predebridement measurements 0.4x0.6x0.3. Undermining present from 12-12, with max depth of 0.8cm.) Neuro: Normal gait, Normal speech Vitals VITALS Vital Signs Date Time Temp Pulse Resp B/P (MAP) Pulse Ox O2 Delivery O2 Flow Rate FiO2 01/14/18 11:00 98.0 64 16 99/46 (63) 95 Room Air 98.0 01/13/18 22:39 2.0 Labs Labs Laboratory Tests Test 01/12/18 18:05 01/13/18 07:46 01/13/18 12:00 01/13/18 16:27 White Blood Count 14.1 x10^3/uL (4.0-11.0) Red Blood Count 3.51 x10^6/uL (4.30-5.70) Hemoglobin 12.0 g/dL (13.0-17.5) Hematocrit 35.1 % (39.0-53.0) Mean Corpuscular Volume 100 fL (79-100) Mean Corpuscular Hemoglobin 34 pg (25-35) Mean Corpuscular Hemoglobin Concent 34 g/dL (31-37) Red Cell Distribution Width 13.4 % (11.5-14.5) Platelet Count 123 x10^3/uL (140-400) Neutrophils (%) (Auto) 92 % (31-73) Lymphocytes (%) (Auto) 2 % (24-48) Monocytes (%) (Auto) 5 % (0-9) Eosinophils (%) (Auto) 0 % (0-3) Basophils (%) (Auto) 1 % (0-3) Neutrophils # (Auto) 13.0 x10^3uL (1.8-7.7) Lymphocytes # (Auto) 0.3 x10^3/uL (1.0-4.8) Monocytes # (Auto) 0.7 x10^3/uL (0.0-1.1) Eosinophils # (Auto) 0.0 x10^3/uL (0.0-0.7) Basophils # (Auto) 0.1 x10^3/uL (0.0-0.2) Segmented Neutrophils % 81 % (35-66) Band Neutrophils % 7 % (0-9) Lymphocytes % 5 % (24-48) Monocytes % 7 % (0-10) Platelet Estimate Decreased (ADEQUATE) Erythrocyte Sedimentation Rate 38 (0-15) Sodium Level 135 mmol/L (136-145) Potassium Level 4.3 mmol/L (3.5-5.1) Chloride Level 94 mmol/L (98-107) Carbon Dioxide Level 31 mmol/L (21-32) Anion Gap 10 (6-14) Blood Urea Nitrogen 73 mg/dL (8-26) Creatinine 8.4 mg/dL (0.7-1.3) Estimated GFR (Cockcroft-Gault) 6.3 BUN/Creatinine Ratio 9 (6-20) Glucose Level 209 mg/dL (70-99) Lactic Acid Level 2.7 mmol/L (0.4-2.0) Calcium Level 8.8 mg/dL (8.5-10.1) Total Bilirubin 0.9 mg/dL (0.2-1.0) Aspartate Amino Transf (AST/SGOT) 11 U/L (15-37) Alanine Aminotransferase (ALT/SGPT) 25 U/L (16-63) Alkaline Phosphatase 123 U/L (46-116) Troponin I Quantitative 0.047 ng/mL (0.000-0.055) CX-Ucd-S-Type Natriuretic Peptide 27053 pg/mL (0-124) Total Protein 7.8 g/dL (6.4-8.2) Albumin 3.8 g/dL (3.4-5.0) Albumin/Globulin Ratio 1.0 (1.0-1.7) Lipase 101 U/L (73-393) Glucose (Fingerstick) 142 mg/dL (70-99) 160 mg/dL (70-99) 97 mg/dL (70-99) Test 01/13/18 18:10 01/13/18 20:12 01/14/18 04:15 01/14/18 07:46 Glucose (Fingerstick) 121 mg/dL (70-99) 170 mg/dL (70-99) 146 mg/dL (70-99) White Blood Count 7.3 x10^3/uL (4.0-11.0) Red Blood Count 3.08 x10^6/uL (4.30-5.70) Hemoglobin 10.7 g/dL (13.0-17.5) Hematocrit 30.6 % (39.0-53.0) Mean Corpuscular Volume 99 fL (79-100) Mean Corpuscular Hemoglobin 35 pg (25-35) Mean Corpuscular Hemoglobin Concent 35 g/dL (31-37) Red Cell Distribution Width 13.7 % (11.5-14.5) Platelet Count 97 x10^3/uL (140-400) Neutrophils (%) (Auto) 76 % (31-73) Lymphocytes (%) (Auto) 11 % (24-48) Monocytes (%) (Auto) 11 % (0-9) Eosinophils (%) (Auto) 1 % (0-3) Basophils (%) (Auto) 1 % (0-3) Neutrophils # (Auto) 5.5 x10^3uL (1.8-7.7) Lymphocytes # (Auto) 0.8 x10^3/uL (1.0-4.8) Monocytes # (Auto) 0.8 x10^3/uL (0.0-1.1) Eosinophils # (Auto) 0.1 x10^3/uL (0.0-0.7) Basophils # (Auto) 0.1 x10^3/uL (0.0-0.2) Sodium Level 135 mmol/L (136-145) Potassium Level 3.9 mmol/L (3.5-5.1) Chloride Level 97 mmol/L (98-107) Carbon Dioxide Level 28 mmol/L (21-32) Anion Gap 10 (6-14) Blood Urea Nitrogen 47 mg/dL (8-26) Creatinine 6.5 mg/dL (0.7-1.3) Estimated GFR (Cockcroft-Gault) 8.5 Glucose Level 138 mg/dL (70-99) Calcium Level 7.5 mg/dL (8.5-10.1) Random Vancomycin Level 14.7 mcg/mL Test 01/14/18 12:17 Glucose (Fingerstick) 156 mg/dL (70-99) Laboratory Tests Test 01/13/18 16:27 9/3/18 18:10 01/13/18 20:12 01/14/18 04:15 Glucose (Fingerstick) 97 mg/dL (70-99) 121 mg/dL (70-99) 170 mg/dL (70-99) White Blood Count 7.3 x10^3/uL (4.0-11.0) Red Blood Count 3.08 x10^6/uL (4.30-5.70) Hemoglobin 10.7 g/dL (13.0-17.5) Hematocrit 30.6 % (39.0-53.0) Mean Corpuscular Volume 99 fL (79-100) Mean Corpuscular Hemoglobin 35 pg (25-35) Mean Corpuscular Hemoglobin Concent 35 g/dL (31-37) Red Cell Distribution Width 13.7 % (11.5-14.5) Platelet Count 97 x10^3/uL (140-400) Neutrophils (%) (Auto) 76 % (31-73) Lymphocytes (%) (Auto) 11 % (24-48) Monocytes (%) (Auto) 11 % (0-9) Eosinophils (%) (Auto) 1 % (0-3) Basophils (%) (Auto) 1 % (0-3) Neutrophils # (Auto) 5.5 x10^3uL (1.8-7.7) Lymphocytes # (Auto) 0.8 x10^3/uL (1.0-4.8) Monocytes # (Auto) 0.8 x10^3/uL (0.0-1.1) Eosinophils # (Auto) 0.1 x10^3/uL (0.0-0.7) Basophils # (Auto) 0.1 x10^3/uL (0.0-0.2) Sodium Level 135 mmol/L (136-145) Potassium Level 3.9 mmol/L (3.5-5.1) Chloride Level 97 mmol/L (98-107) Carbon Dioxide Level 28 mmol/L (21-32) Anion Gap 10 (6-14) Blood Urea Nitrogen 47 mg/dL (8-26) Creatinine 6.5 mg/dL (0.7-1.3) Estimated GFR (Cockcroft-Gault) 8.5 Glucose Level 138 mg/dL (70-99) Calcium Level 7.5 mg/dL (8.5-10.1) Random Vancomycin Level 14.7 mcg/mL Test 01/14/18 07:46 01/14/18 12:17 Glucose (Fingerstick) 146 mg/dL (70-99) 156 mg/dL (70-99) Assessment/Plan Assessment/Plan Diabetic/Minaya 1 to right great plantar toe. Upon initial examination, wound surrounded with ecchymosis extending 0.8cm. No edema, erythema or warmth present to great toe. Predebridement measurements: 0.4x0.6x0.3cm with undermining from 12-12 with max depth of 0.8cm. Bedside debridement performed. No anesthesia required. Excisional debrided viable tissue down to muscle. 15 blade scalpel and curette used for debridement. Minimal bleeding controlled with pressure. Post debridement measurements: 1x1.8x0.2cm, no undermining remaining. Pt to be nonweightbearing. Rooke boot placed. Pt instructed not to place pressure on wound. Will anticipate f/u in wound care center following discharge from hospital. SULMA KEYS DO 01/14/18 1527: CONSULT Assessment/Plan Assessment/Plan Agree with above. Await culture. ANNALISA Osorio D.O., APRN Jan 14, 2018 15:11 SULMA KEYS DO Jan 14, 2018 15:27
[2018-01-14 19:00] VITALS: BP 90/47
[2018-01-14] MEDS: ATORVASTATIN CALCIUM 20 MG TABLET PO SCH (21:31)
[2018-01-14] MEDS: INSULIN GLARGINE 300 UNITS/3 ML INSULN.PEN. SQ SCH (21:41)
[2018-01-14 23:04] VITALS: BP 135/65
[2018-01-15] MEDS: PIPERACILLIN/TAZOBACTAM 2.25 GM in IV NORMAL SALINE 50ML 50 ML IV SCH ×4 (01:27→21:59)
[2018-01-15 02:39] VITALS: BP 115/60
[2018-01-15] MEDS ORDERED: VANCOMYCIN RANDOM LEVEL. MC ONE (06:00)
--- NOTE | 2018-01-15 06:15 | PDOC ---
PROGRESS NOTES History of Present Illness History of Present Illness Assessment/Plan Assessment/Plan N/V, diarrhea fever 1/2 bacteremia doubt PNA htn dm2 ESRD on HD mwf pafib on eliquis h/o left kidney Ca s/p nephrectomy CT showed 4mm lung nodule sepsis Mild left lung base airspace opacities likely atelectasis or infiltrate. plan: renal, ID consult cont home meds, on lasix bid lantus 20u qhs, ssi cont HD fu bcx, on zosyn and vanco wound care doc consult, cont eliquis dvt ppx PTOT check cdiff asked pt to fu with pcp for small lung nodule Vitals Vitals Vital Signs Date Time Temp Pulse Resp B/P (MAP) Pulse Ox O2 Delivery O2 Flow Rate FiO2 01/15/18 02:39 97.6 68 21 115/60 (78) 96 BiPAP/CPAP 97.6 Physical Exam Physical Exam CONSTITUTIONAL: He is lying in bed. He is currently on his right side. He is pleasant. He is cooperative, but he is hard of hearing. He is in no acute distress. Looks a little better HEENT: Pupils are equal and reactive. Oral cavity, pharynx is clear, with some questionable dentition. NECK: Supple, no JVD. LUNGS: Clear to auscultation bilaterally. HEART: S1, S2. ABDOMEN: Obese, soft, nontender and nondistended. EXTREMITIES: No clubbing or cyanosis. Right lower extremity is in the cast. His left upper extremity has AV fistula, without signs of any complications. NEUROLOGIC: He is alert and oriented. He has no focal defects appreciated. SKIN: Warm to touch, without signs of generalized rash, but he does have some scabbing on his right upper extremity. IV site is clean General: Alert, Oriented X3, Cooperative, No acute distress Heart: Regular rate Lungs: Clear Abdomen: Soft, No tenderness Extremities: No clubbing, No edema, No tenderness/swelling Skin: No rashes, No breakdown, Other (Pt with right great toe DFU wound. Following cast removal purulent drainage present from wound bed. Wound cx obtained. No surrounding erythema or edema present. Eccymosis present surrounding wound bed extending 0.8cm. Predebridement measurements 0.4x0.6x0.3. Undermining present from 12-12, with max depth of 0.8cm.) Labs LABS Laboratory Tests Test 01/14/18 07:46 01/14/18 12:17 01/14/18 16:33 01/14/18 20:40 Glucose (Fingerstick) 146 mg/dL (70-99) 156 mg/dL (70-99) 130 mg/dL (70-99) 176 mg/dL (70-99) Assessment and Plan Assessmemt and Plan Problems Medical Problems: (1) Pneumonia Status: Acute Comment Review of Relevant I have reviewed the following items jennifer (where applicable) has been applied. Labs Laboratory Tests Test 01/13/18 07:46 01/13/18 12:00 01/13/18 16:27 01/13/18 18:10 Glucose (Fingerstick) 142 mg/dL (70-99) 160 mg/dL (70-99) 97 mg/dL (70-99) 121 mg/dL (70-99) Test 01/13/18 20:12 01/14/18 04:15 01/14/18 07:46 01/14/18 12:17 Glucose (Fingerstick) 170 mg/dL (70-99) 146 mg/dL (70-99) 156 mg/dL (70-99) White Blood Count 7.3 x10^3/uL (4.0-11.0) Red Blood Count 3.08 x10^6/uL (4.30-5.70) Hemoglobin 10.7 g/dL (13.0-17.5) Hematocrit 30.6 % (39.0-53.0) Mean Corpuscular Volume 99 fL (79-100) Mean Corpuscular Hemoglobin 35 pg (25-35) Mean Corpuscular Hemoglobin Concent 35 g/dL (31-37) Red Cell Distribution Width 13.7 % (11.5-14.5) Platelet Count 97 x10^3/uL (140-400) Neutrophils (%) (Auto) 76 % (31-73) Lymphocytes (%) (Auto) 11 % (24-48) Monocytes (%) (Auto) 11 % (0-9) Eosinophils (%) (Auto) 1 % (0-3) Basophils (%) (Auto) 1 % (0-3) Neutrophils # (Auto) 5.5 x10^3uL (1.8-7.7) Lymphocytes # (Auto) 0.8 x10^3/uL (1.0-4.8) Monocytes # (Auto) 0.8 x10^3/uL (0.0-1.1) Eosinophils # (Auto) 0.1 x10^3/uL (0.0-0.7) Basophils # (Auto) 0.1 x10^3/uL (0.0-0.2) Sodium Level 135 mmol/L (136-145) Potassium Level 3.9 mmol/L (3.5-5.1) Chloride Level 97 mmol/L (98-107) Carbon Dioxide Level 28 mmol/L (21-32) Anion Gap 10 (6-14) Blood Urea Nitrogen 47 mg/dL (8-26) Creatinine 6.5 mg/dL (0.7-1.3) Estimated GFR (Cockcroft-Gault) 8.5 Glucose Level 138 mg/dL (70-99) Calcium Level 7.5 mg/dL (8.5-10.1) Random Vancomycin Level 14.7 mcg/mL Test 01/14/18 16:33 01/14/18 20:40 Glucose (Fingerstick) 130 mg/dL (70-99) 176 mg/dL (70-99) Laboratory Tests Test 01/14/18 07:46 01/14/18 12:17 01/14/18 16:33 01/14/18 20:40 Glucose (Fingerstick) 146 mg/dL (70-99) 156 mg/dL (70-99) 130 mg/dL (70-99) 176 mg/dL (70-99) Microbiology 01/13/18 Blood Culture - Preliminary, Resulted NO GROWTH AFTER 1 DAY Medications Current Medications Piperacillin Sod/ Tazobactam Sod (Zosyn Per Pharmacy) 1 each PRN DAILY PRN MC SEE COMMENTS; Start 01/12/18 at 19:15; Stop 01/13/18 at 11:24; Status DC Vancomycin HCl (Vanco Per Pharmacy) 1 each PRN DAILY PRN MC SEE COMMENTS Last administered on 01/14/18at 13:52; Start 01/12/18 at 19:15 Vancomycin HCl 2 gm/Sodium Chloride 500 ml @ 250 mls/hr 1X ONCE IV Last administered on 01/12/18at 20:08; Start 01/12/18 at 20:00; Stop 01/12/18 at 21:59; Status DC Piperacillin Sod/ Tazobactam Sod 2.25 gm/Sodium Chloride 50 ml @ 100 mls/hr 1X ONCE IV Last administered on 01/12/18at 19:31; Start 01/12/18 at 19:30; Stop 01/12/18 at 19:59; Status DC Ondansetron HCl (Zofran) 4 mg PRN Q8HRS PRN IV NAUSEA/VOMITING; Start 01/12/18 at 19:30; Stop 01/13/18 at 19:29; Status DC Piperacillin Sod/ Tazobactam Sod 2.25 gm/Sodium Chloride 50 ml @ 100 mls/hr Q6HRS IV Last administered on 01/13/18at 11:11; Start 01/13/18 at 00:00; Stop 01/13 at 11:24; Status DC Vancomycin HCl (Vancomycin Random Level) 1 each 1X ONCE MC ; Start 01/15/18 at 06:00; Stop 01/15/18 at 06:00; Status DC Acetaminophen (Tylenol) 650 mg PRN Q6HRS PRN PO FEVER; Start 01/13/18 at 08:45 Ondansetron HCl (Zofran) 4 mg PRN Q6HRS PRN IV NAUSEA/VOMITING; Start 01/13/18 at 08:45 Morphine Sulfate (Morphine Sulfate) 2 mg PRN Q2HR PRN IV MODERATE TO SEVERE PAIN; Start 01/13/18 at 08:45 Tramadol HCl (Ultram) 50 mg PRN Q6HRS PRN PO MILD TO MODERATE PAIN; Start at 08:45 Docusate Sodium (Colace) 100 mg PRN DAILY PRN PO CONSTIPATION; Start 01/13/18 at 08:45 Allopurinol (Zyloprim) 100 mg DAILY PO Last administered on 01/14/18at 09:07; Start 01/13/18 at 09:00 Apixaban (Eliquis) 5 mg BID PO Last administered on 01/14/18at 21:30; Start at 09:00 Atorvastatin Calcium (Lipitor) 20 mg HS PO Last administered on 01/14/18at 21:31 ; Start 01/13/18 at 21:00 Carvedilol (Coreg) 6.25 mg BIDWMEALS PO Last administered on 01/14/18 16:33; Start 01/13/18 at 09:00 Cinacalcet (Sensipar) 60 mg DAILY PO Last administered on 01/14/18 09:07; Start 01/13/18 at 09:00 Ferrous Sulfate (Feosol) 325 mg TID PO Last administered on 01/14/18 21:30; Start 01/13/18 at 09:00 Furosemide (Lasix) 40 mg BID92 PO Last administered on 01/14/18 14:48; Start at 09:00 Sevelamer Carbonate (Renvela) 2,400 mg TIDWMEALS PO Last administered on 16:32; Start 01/13/18 at 09:00 Insulin Glargine (Lantus) 20 units QHS SQ Last administered on 01/14/18 21:41; Start 01/13/18 at 21:00 Atorvastatin Calcium (Lipitor) 5 mg QHS PO ; Start 01/13/18 at 21:00; Status Cancel Insulin Human Lispro (HumaLOG) 0-9 UNITS TIDWMEALS SQ Last administered on 13:05; Start 01/13/18 at 12:00 Dextrose (Dextrose 50%-Water Syringe) 12.5 gm PRN Q15MIN PRN IV SEE COMMENTS; Start 01/13/18 at 08:45 Piperacillin Sod/ Tazobactam Sod 2.25 gm/Sodium Chloride 50 ml @ 100 mls/hr Q8HRS IV Last administered on 01/15/18 01:27; Start 01/13/18 at 14:00 Lactobacillus Rhamnosus (Culturelle) 1 cap BID PO Last administered on 21:30; Start 01/13/18 at 21:00 Sodium Chloride 1,000 ml @ 1,000 mls/hr Q1H PRN IV hypotension; Start 01/13/18 at 12:00; Stop 01/13/18 at 17:59; Status DC Sodium Chloride 1,000 ml @ 400 mls/hr Q2H30M PRN IV PATENCY; Start 01/13/18 at 12:00; Stop 01/13/18 at 23:59; Status DC Info (PHARMACY MONITORING -- do not chart) 1 each PRN DAILY PRN MC SEE COMMENTS ; Start 01/13/18 at 15:30 Info (PHARMACY MONITORING -- do not chart) 1 each PRN DAILY PRN MC SEE COMMENTS ; Start 01/13/18 at 15:30; Status UNV Albuterol Sulfate (Ventolin Neb Soln) 2.5 mg PRN Q4HRS PRN NEB SHORTNESS OF BREATH; Start 01/13/18 at 16:45 Ascorbic Acid (Vitamin C) 500 mg DAILY PO Last administered on 01/14/18at 09:07; Start 01/14/18 at 09:30 Vitamin B Complex/ Vitamin C (Mindy-Maureen) 1 tab DAILY PO Last administered on 01/14/18at 09:07; Start 01/14/18 at 09:30 Info (Anti-Coagulation Monitoring By Pharmacy) 1 each PRN DAILY PRN MC SEE COMMENTS Last administered on 01/14/18at 13:59; Start 01/14/18 at 11:45 Vancomycin HCl 500 mg/Sodium Chloride 100 ml @ 100 mls/hr ONCE ONCE IV Last administered on 01/14/18at 16:32; Start 01/14/18 at 15:00; Stop 01/14/18 at 15:59; Status DC Vancomycin HCl 500 mg/Sodium Chloride 100 ml @ 100 mls/hr QMWF IV ; Start at 16:00 Active Scripts Active Culturelle (Lactobacillus Rhamnosus Gg) 1 Each Cap.sprink 1 Cap PO BID Cefpodoxime Proxetil 100 Mg Tablet 200 Mg PO BID Allopurinol 100 Mg Tablet 100 Mg PO DAILY Novolog Flexpen (Insulin Aspart) 100 Unit/1 Ml Insuln.pen 0 Units SQ TIDWMEALS 30 Days Levemir Flextouch (Insulin Detemir) 100 Unit/1 Ml Insuln.pen 20 Units SQ QHS 30 Days Reported Renvela (Sevelamer Carbonate) 800 Mg Tablet 3 Tab PO TID Entresto 49 mg-51 mg Tablet (Sacubitril/Valsartan) 1 Each Tablet 1 Each PO Lasix (Furosemide) 40 Mg Tablet 40 Mg PO BID Sensipar (Cinacalcet Hcl) 30 Mg Tablet 60 Mg PO DAILY Eliquis (Apixaban) 5 Mg Tablet 5 Mg PO BID Ferrous Sulfate 325 Mg Tablet 1 Tab PO TID Coreg (Carvedilol) 6.25 Mg Tablet 1 Tab PO BID Atorvastatin Calcium 20 Mg Tablet 20 Mg PO HS Pravastatin Sodium 20 Mg Tablet 20 Mg PO DAILY Vitals/I & O Vital Sign - Last 24 Hours 01/14/18 01/14/18 01/14/18 01/14/18 07:00 08:00 09:08 11:00 Temp 97.6 98.0 97.6 98.0 Pulse 76 76 64 Resp 20 16 B/P (MAP) 114/64 (81) 114/64 99/46 (63) Pulse Ox 94 95 O2 Delivery Room Air Room Air Room Air 01/14/18 01/14/18 01/14/18 01/14/18 15:00 16:33 19:00 20:00 Temp 97.4 97.9 97.4 97.9 Pulse 71 71 71 Resp 20 18 B/P (MAP) 119/55 (76) 119/55 90/47 (61) Pulse Ox 98 96 O2 Delivery Room Air Room Air Room Air 01/14/18 01/15/18 23:04 02:39 Temp 97.5 97.6 97.5 97.6 Pulse 82 68 Resp 19 21 B/P (MAP) 135/65 (88) 115/60 (78) Pulse Ox 96 96 O2 Delivery Room Air BiPAP/CPAP Intake and Output 01/14/18 01/14/18 01/15/18 15:00 23:00 07:00 Intake Total 340 ml 300 ml 300 ml Balance 340 ml 300 ml 300 ml VERENA OROZCO MD Jan 15, 2018 06:15
[2018-01-15] MEDS ORDERED: diphenhydrAMINE 50 MG/ML VIAL IV PRN ×2 (06:30)
[2018-01-15] MEDS ORDERED: IV NORMAL SALINE 1000ML BAG 1,000 ML IV PRN ×2 (06:30)
[2018-01-15] MEDS ORDERED: DIALYSIS PATIENT. MC PRN (06:30)
[2018-01-15 07:38] LABS: BASO # 0.1 x10^3/uL (0.0-0.2); BASO % 1 % (0-3); EOS # 0.2 x10^3/uL (0.0-0.7); EOS % 3 % (0-3); HEMATOCRIT 30.1 % (39.0-53.0); HEMOGLOBIN 10.7 g/dL (13.0-17.5); LYMPH # 1.1 x10^3/uL (1.0-4.8); LYMPH % 19 % (24-48); MEAN CORPUSCULAR HEMOGLOBIN 35 pg (25-35); MEAN CORPUSCULAR HGB CONC 36 g/dL (31-37); MEAN CORPUSCULAR VOLUME 98 fL (79-100); MONO # 0.3 x10^3/uL (0.0-1.1); MONO % 5 % (0-9); NEUT # 4.4 x10^3uL (1.8-7.7); NEUT % 72 % (31-73); PLATELET COUNT 105 x10^3/uL (140-400); RED BLOOD COUNT 3.06 x10^6/uL (4.30-5.70); RED CELL DISTRIBUTION WIDTH 13.6 % (11.5-14.5); WHITE BLOOD COUNT 6.1 x10^3/uL (4.0-11.0)
[2018-01-15 07:43] LABS: ALBUMIN 2.9 g/dL (3.4-5.0); CALCIUM 7.1 mg/dL (8.5-10.1); CREATININE 6.1 mg/dL (0.7-1.3); GFR 9.1; PHOSPHORUS 3.5 mg/dL (2.6-4.7); POTASSIUM 3.5 mmol/L (3.5-5.1)
[2018-01-15] MEDS: CARVEDILOL 6.25 MG TABLET. PO SCH ×2 (08:00→17:15)
[2018-01-15] MEDS: SEVELAMER CARBONATE 800 MG TABLET. PO SCH ×3 (08:00→17:14)
[2018-01-15] MEDS: INSULIN LISPRO 300 UNITS/3 ML INSULN.PEN. SQ SCH ×3 (08:00→17:40)
[2018-01-15] MEDS: FUROSEMIDE 40 MG TABLET. PO SCH ×2 (09:00→11:56)
[2018-01-15] MEDS: FERROUS SULFATE 325 MG TABLET. PO SCH ×3 (09:00→21:13)
--- NOTE | 2018-01-15 10:51 | PDOC ---
Infectious Disease Note Subjective Subjective Better today No F/C/S/N/V/SOA/Rash or gross pain ROS ROS o/w neg Vital Sign Vital Signs Vital Signs Date Time Temp Pulse Resp B/P (MAP) Pulse Ox O2 Delivery O2 Flow Rate FiO2 01/15/18 02:39 97.6 68 21 115/60 (78) 96 BiPAP/CPAP 97.6 Physical Exam PHYSICAL EXAM CONSTITUTIONAL: He is lying in bed. He is in bed on HD. He is cooperative. He is in no acute distress. Looks better HEENT: Pupils are equal and reactive. Oral cavity, pharynx is clear, with some questionable dentition. NECK: Supple, no JVD. LUNGS: Clear to auscultation bilaterally. HEART: S1, S2. ABDOMEN: Obese, soft, nontender and nondistended. EXTREMITIES: No clubbing or cyanosis. Right lower extremity cast has been removed an rooke boot in place. His left upper extremity has AV fistula, without signs of any complications. NEUROLOGIC: He is alert and oriented. He has no focal defects appreciated. SKIN: Warm to touch, without signs of generalized rash, but he does have some scabbing on his right upper extremity. IV site is clean Labs Lab Laboratory Tests Test 01/14/18 12:17 01/14/18 16:33 01/14/18 20:40 01/15/18 07:00 Glucose (Fingerstick) 156 mg/dL (70-99) 130 mg/dL (70-99) 176 mg/dL (70-99) Sodium Level 140 mmol/L (136-145) Potassium Level 3.5 mmol/L (3.5-5.1) Chloride Level 101 mmol/L (98-107) Carbon Dioxide Level 27 mmol/L (21-32) Anion Gap 12 (6-14) Blood Urea Nitrogen 53 mg/dL (8-26) Creatinine 6.1 mg/dL (0.7-1.3) Estimated GFR (Cockcroft-Gault) 9.1 Glucose Level 118 mg/dL (70-99) Calcium Level 7.1 mg/dL (8.5-10.1) Phosphorus Level 3.5 mg/dL (2.6-4.7) Albumin 2.9 g/dL (3.4-5.0) Test 01/15/18 07:18 01/15/18 07:25 Glucose (Fingerstick) 97 mg/dL (70-99) White Blood Count 6.1 x10^3/uL (4.0-11.0) Red Blood Count 3.06 x10^6/uL (4.30-5.70) Hemoglobin 10.7 g/dL (13.0-17.5) Hematocrit 30.1 % (39.0-53.0) Mean Corpuscular Volume 98 fL (79-100) Mean Corpuscular Hemoglobin 35 pg (25-35) Mean Corpuscular Hemoglobin Concent 36 g/dL (31-37) Red Cell Distribution Width 13.6 % (11.5-14.5) Platelet Count 105 x10^3/uL (140-400) Neutrophils (%) (Auto) 72 % (31-73) Lymphocytes (%) (Auto) 19 % (24-48) Monocytes (%) (Auto) 5 % (0-9) Eosinophils (%) (Auto) 3 % (0-3) Basophils (%) (Auto) 1 % (0-3) Neutrophils # (Auto) 4.4 x10^3uL (1.8-7.7) Lymphocytes # (Auto) 1.1 x10^3/uL (1.0-4.8) Monocytes # (Auto) 0.3 x10^3/uL (0.0-1.1) Eosinophils # (Auto) 0.2 x10^3/uL (0.0-0.7) Basophils # (Auto) 0.1 x10^3/uL (0.0-0.2) Micro Microbiology 01/12/18 Blood Culture - Final, Complete Objective Assessment Bacteremia /2 bottles 01/12 GNR and now ? GPC Leukocytosis - better CKD on HD M/W/F S/p cat scratches to R hand/arm - no gross cellulitis Toe wound on right - Wound care note reviewed N/V -better H/o Enterobacter sepsis December 2016 Plan Plan of Care Cont Vanc/ zosyn to q 8 Cont probiotics F/u labs and cults F/u C-diff VIRIDIANA ARANA MD Jan 15, 2018 10:51
[2018-01-15] MEDS: CINACALCET HCL 30 MG TABLET PO SCH (11:55)
[2018-01-15] MEDS: FOLIC/VIT B COMP W-C (RENAL) TABLET. PO SCH (11:56)
[2018-01-15] MEDS: LACTOBACILLUS RHAMNOSUS GG 1 CAPSULE. PO SCH ×2 (11:56→21:13)
[2018-01-15] MEDS: APIXABAN 5 MG TABLET. PO SCH ×2 (11:56→21:13)
[2018-01-15] MEDS: ASCORBIC ACID 500 MG TABLET PO SCH (11:56)
[2018-01-15] MEDS: ALLOPURINOL 100 MG TABLET. PO SCH (11:56)
--- NOTE | 2018-01-15 12:24 | PDOC ---
SUBJECTIVE ROS Seen on HD, tolerating well, states feeling much better OBJECTIVE Vital Signs Vital Signs Date Time Temp Pulse Resp B/P (MAP) Pulse Ox O2 Delivery O2 Flow Rate FiO2 01/15/18 02:39 97.6 68 21 115/60 (78) 96 BiPAP/CPAP 97.6 I & 0 Intake and Output 01/15/18 07:00 Intake Total 940 ml Balance 940 ml Intake Oral 940 ml # Voids 2 # Bowel Movements 2 PHYSICAL EXAM Physical Exam GEN: NAD HENT : Om Moist, On RA NECK: No JVD, supple CVS: RRR RESP: Few Crackles bases GI: BS + ve, NO Bruit, Non Tender, Non Distended : No CVA or SP tenderness, No [place] Skin No rash Ext- Lt Arm AV access Neuro- AxO x3 DIAGNOSIS/ASSESSMENT Assessment & Plan ESRD- MWF @ [facility] Seen on HD , tolerating well Continue as Ordered- Labs Reviewed dw redevelopment specialist Bacteremia- Id following Hx of left kidney Ca s/p nephrectomy COMMENT/RELEVANT DATA Meds Current Medications Medications (Trade) Dose Ordered Sig/[place] Start Time Stop Time Status Last Admin Dose Admin Acetaminophen (Tylenol) 650 mg PRN Q6HRS PRN 01/13/18 08:45 Albuterol Sulfate (Ventolin Neb Soln) 2.5 mg PRN Q4HRS PRN 01/13/18 16:45 Allopurinol (Zyloprim) 100 mg DAILY 01/13/18 09:00 01/15/18 11:56 100 MG Apixaban (Eliquis) 5 mg BID 01/13/18 09:00 01/15/18 11:56 5 MG Ascorbic Acid (Vitamin C) 500 mg DAILY 01/14/18 09:30 01/15/18 11:56 500 MG Atorvastatin Calcium (Lipitor) 5 mg QHS 01/13/18 21:00 Cancel Carvedilol (Coreg) 6.25 mg BIDWMEALS 01/13/18 09:00 01/14/18 16:33 6.25 MG Cinacalcet (Sensipar) 60 mg DAILY 01/13/18 09:00 01/15/18 11:55 60 MG Dextrose (Dextrose 50%-Water Syringe) 12.5 gm PRN Q15MIN PRN 01/13/18 08:45 Diphenhydramine HCl (Benadryl) 25 mg 1X PRN PRN 01/15/18 06:30 01/16/18 06:29 Docusate Sodium (Colace) 100 mg PRN DAILY PRN 01/13/18 08:45 Ferrous Sulfate (Feosol) 325 mg TID 01/13/18 09:00 01/15/18 11:56 325 MG Furosemide (Lasix) 40 mg [id number] 01/13/18 09:00 01/15/18 11:56 40 MG Info (Anti-Coagulation Monitoring By Pharmacy) 1 each PRN DAILY PRN 01/14/18 11:45 01/14/18 13:59 1 EACH Info (PHARMACY MONITORING -- do not chart) 1 each PRN DAILY PRN 01/15/18 06:30 Insulin Glargine (Lantus) 20 units QHS 01/13/18 21:00 01/14/18 21:41 20 UNITS Insulin Human Lispro (HumaLOG) 0-9 UNITS TIDWMEALS 01/13/18 12:00 01/14/18 13:05 4 UNITS Lactobacillus Rhamnosus (Culturelle) 1 cap BID 01/13/18 21:00 01/15/18 11:56 1 CAP Morphine Sulfate (Morphine Sulfate) 2 mg PRN Q2HR PRN 01/13/18 08:45 Ondansetron HCl (Zofran) 4 mg PRN Q6HRS PRN 01/13/18 08:45 Piperacillin Sod/ Tazobactam Sod (Zosyn Per Pharmacy) 1 each PRN DAILY PRN 01/12/18 19:15 01/13/18 11:24 DC Piperacillin Sod/ Tazobactam Sod 2.25 gm/Sodium Chloride 50 ml @ 100 mls/hr Q8HRS 01/13/18 14:00 01/15/18 06:47 100 MLS/HR Sevelamer Carbonate (Renvela) 2,400 mg TIDWMEALS 01/13/18 09:00 01/15/18 11:55 2,400 MG Sodium Chloride 1,000 ml @ 400 mls/hr Q2H30M PRN 01/15/18 06:30 01/15/18 18:29 Tramadol HCl (Ultram) 50 mg PRN Q6HRS PRN 01/13/18 08:45 Vancomycin HCl (Vanco Per Pharmacy) 1 each PRN DAILY PRN 01/12/18 19:15 01/14/18 13:52 1 EACH Vancomycin HCl (Vancomycin Random Level) 1 each 1X ONCE 01/15/18 06:00 01/15/18 06:00 DC Vancomycin HCl 500 mg/Sodium Chloride 100 ml @ 100 mls/hr QMWF 01/15/18 16:00 Vancomycin HCl 2 gm/Sodium Chloride 500 ml @ 250 mls/hr 1X ONCE 01/12/18 20:00 01/12/18 21:59 DC 01/12/18 20:08 250 MLS/HR Vitamin B Complex/ Vitamin C (Mindy-Maureen) 1 tab DAILY 01/14/18 09:30 01/15/18 11:56 1 TAB Lab Laboratory Tests Test 01/14/18 16:33 01/14/18 20:40 01/15/18 07:00 01/15/18 07:18 Glucose (Fingerstick) 130 mg/dL (70-99) 176 mg/dL (70-99) 97 mg/dL (70-99) Sodium Level 140 mmol/L (136-145) Potassium Level 3.5 mmol/L (3.5-5.1) Chloride Level 101 mmol/L (98-107) Carbon Dioxide Level 27 mmol/L (21-32) Anion Gap 12 (6-14) Blood Urea Nitrogen 53 mg/dL (8-26) Creatinine 6.1 mg/dL (0.7-1.3) Estimated GFR (Cockcroft-Gault) 9.1 Glucose Level 118 mg/dL (70-99) Calcium Level 7.1 mg/dL (8.5-10.1) Phosphorus Level 3.5 mg/dL (2.6-4.7) Albumin 2.9 g/dL (3.4-5.0) Test 01/15/18 07:25 01/15/18 11:40 White Blood Count 6.1 x10^3/uL (4.0-11.0) Red Blood Count 3.06 x10^6/uL (4.30-5.70) Hemoglobin 10.7 g/dL (13.0-17.5) Hematocrit 30.1 % (39.0-53.0) Mean Corpuscular Volume 98 fL (79-100) Mean Corpuscular Hemoglobin 35 pg (25-35) Mean Corpuscular Hemoglobin Concent 36 g/dL (31-37) Red Cell Distribution Width 13.6 % (11.5-14.5) Platelet Count 105 x10^3/uL (140-400) Neutrophils (%) (Auto) 72 % (31-73) Lymphocytes (%) (Auto) 19 % (24-48) Monocytes (%) (Auto) 5 % (0-9) Eosinophils (%) (Auto) 3 % (0-3) Basophils (%) (Auto) 1 % (0-3) Neutrophils # (Auto) 4.4 x10^3uL (1.8-7.7) Lymphocytes # (Auto) 1.1 x10^3/uL (1.0-4.8) Monocytes # (Auto) 0.3 x10^3/uL (0.0-1.1) Eosinophils # (Auto) 0.2 x10^3/uL (0.0-0.7) Basophils # (Auto) 0.1 x10^3/uL (0.0-0.2) Glucose (Fingerstick) 105 mg/dL (70-99) Results All relevant outside records, renal labs, imaging studies, telemetry/EKG's were reviewed. TREVIN CERNA MD Jan 15, 2018 12:24
--- NOTE | 2018-01-15 14:01 | PDOC ---
PULMONARY PROGRESS NOTES Subjective no soa Vitals Vital Signs Date Time Temp Pulse Resp B/P (MAP) Pulse Ox O2 Delivery O2 Flow Rate FiO2 01/15/18 08:00 Room Air 01/15/18 02:39 97.6 68 21 115/60 (78) 96 97.6 General: Alert, No acute distress Lungs: Clear Cardiovascular: S1 Abdomen: Soft Neuro Exam: Alert Extremities: Other (right leg cast) Skin: Warm Labs Laboratory Tests Test 01/13/18 16:27 01/13/18 18:10 01/13/18 20:12 01/14/18 04:15 Glucose (Fingerstick) 97 mg/dL (70-99) 121 mg/dL (70-99) 170 mg/dL (70-99) White Blood Count 7.3 x10^3/uL (4.0-11.0) Red Blood Count 3.08 x10^6/uL (4.30-5.70) Hemoglobin 10.7 g/dL (13.0-17.5) Hematocrit 30.6 % (39.0-53.0) Mean Corpuscular Volume 99 fL (79-100) Mean Corpuscular Hemoglobin 35 pg (25-35) Mean Corpuscular Hemoglobin Concent 35 g/dL (31-37) Red Cell Distribution Width 13.7 % (11.5-14.5) Platelet Count 97 x10^3/uL (140-400) Neutrophils (%) (Auto) 76 % (31-73) Lymphocytes (%) (Auto) 11 % (24-48) Monocytes (%) (Auto) 11 % (0-9) Eosinophils (%) (Auto) 1 % (0-3) Basophils (%) (Auto) 1 % (0-3) Neutrophils # (Auto) 5.5 x10^3uL (1.8-7.7) Lymphocytes # (Auto) 0.8 x10^3/uL (1.0-4.8) Monocytes # (Auto) 0.8 x10^3/uL (0.0-1.1) Eosinophils # (Auto) 0.1 x10^3/uL (0.0-0.7) Basophils # (Auto) 0.1 x10^3/uL (0.0-0.2) Sodium Level 135 mmol/L (136-145) Potassium Level 3.9 mmol/L (3.5-5.1) Chloride Level 97 mmol/L (98-107) Carbon Dioxide Level 28 mmol/L (21-32) Anion Gap 10 (6-14) Blood Urea Nitrogen 47 mg/dL (8-26) Creatinine 6.5 mg/dL (0.7-1.3) Estimated GFR (Cockcroft-Gault) 8.5 Glucose Level 138 mg/dL (70-99) Calcium Level 7.5 mg/dL (8.5-10.1) Random Vancomycin Level 14.7 mcg/mL Test 01/14/18 07:46 01/14/18 12:17 01/14/18 16:33 01/14/18 20:40 Glucose (Fingerstick) 146 mg/dL (70-99) 156 mg/dL (70-99) 130 mg/dL (70-99) 176 mg/dL (70-99) Test 01/15/18 07:00 01/15/18 07:18 01/15/18 07:25 01/15/18 11:40 Sodium Level 140 mmol/L (136-145) Potassium Level 3.5 mmol/L (3.5-5.1) Chloride Level 101 mmol/L (98-107) Carbon Dioxide Level 27 mmol/L (21-32) Anion Gap 12 (6-14) Blood Urea Nitrogen 53 mg/dL (8-26) Creatinine 6.1 mg/dL (0.7-1.3) Estimated GFR (Cockcroft-Gault) 9.1 Glucose Level 118 mg/dL (70-99) Calcium Level 7.1 mg/dL (8.5-10.1) Phosphorus Level 3.5 mg/dL (2.6-4.7) Albumin 2.9 g/dL (3.4-5.0) Glucose (Fingerstick) 97 mg/dL (70-99) 105 mg/dL (70-99) White Blood Count 6.1 x10^3/uL (4.0-11.0) Red Blood Count 3.06 x10^6/uL (4.30-5.70) Hemoglobin 10.7 g/dL (13.0-17.5) Hematocrit 30.1 % (39.0-53.0) Mean Corpuscular Volume 98 fL (79-100) Mean Corpuscular Hemoglobin 35 pg (25-35) Mean Corpuscular Hemoglobin Concent 36 g/dL (31-37) Red Cell Distribution Width 13.6 % (11.5-14.5) Platelet Count 105 x10^3/uL (140-400) Neutrophils (%) (Auto) 72 % (31-73) Lymphocytes (%) (Auto) 19 % (24-48) Monocytes (%) (Auto) 5 % (0-9) Eosinophils (%) (Auto) 3 % (0-3) Basophils (%) (Auto) 1 % (0-3) Neutrophils # (Auto) 4.4 x10^3uL (1.8-7.7) Lymphocytes # (Auto) 1.1 x10^3/uL (1.0-4.8) Monocytes # (Auto) 0.3 x10^3/uL (0.0-1.1) Eosinophils # (Auto) 0.2 x10^3/uL (0.0-0.7) Basophils # (Auto) 0.1 x10^3/uL (0.0-0.2) Laboratory Tests Test 01/14/18 16:33 01/14/18 20:40 01/15/18 07:00 01/15/18 07:18 Glucose (Fingerstick) 130 mg/dL (70-99) 176 mg/dL (70-99) 97 mg/dL (70-99) Sodium Level 140 mmol/L (136-145) Potassium Level 3.5 mmol/L (3.5-5.1) Chloride Level 101 mmol/L (98-107) Carbon Dioxide Level 27 mmol/L (21-32) Anion Gap 12 (6-14) Blood Urea Nitrogen 53 mg/dL (8-26) Creatinine 6.1 mg/dL (0.7-1.3) Estimated GFR (Cockcroft-Gault) 9.1 Glucose Level 118 mg/dL (70-99) Calcium Level 7.1 mg/dL (8.5-10.1) Phosphorus Level 3.5 mg/dL (2.6-4.7) Albumin 2.9 g/dL (3.4-5.0) Test 01/15/18 07:25 01/15/18 11:40 White Blood Count 6.1 x10^3/uL (4.0-11.0) Red Blood Count 3.06 x10^6/uL (4.30-5.70) Hemoglobin 10.7 g/dL (13.0-17.5) Hematocrit 30.1 % (39.0-53.0) Mean Corpuscular Volume 98 fL (79-100) Mean Corpuscular Hemoglobin 35 pg (25-35) Mean Corpuscular Hemoglobin Concent 36 g/dL (31-37) Red Cell Distribution Width 13.6 % (11.5-14.5) Platelet Count 105 x10^3/uL (140-400) Neutrophils (%) (Auto) 72 % (31-73) Lymphocytes (%) (Auto) 19 % (24-48) Monocytes (%) (Auto) 5 % (0-9) Eosinophils (%) (Auto) 3 % (0-3) Basophils (%) (Auto) 1 % (0-3) Neutrophils # (Auto) 4.4 x10^3uL (1.8-7.7) Lymphocytes # (Auto) 1.1 x10^3/uL (1.0-4.8) Monocytes # (Auto) 0.3 x10^3/uL (0.0-1.1) Eosinophils # (Auto) 0.2 x10^3/uL (0.0-0.7) Basophils # (Auto) 0.1 x10^3/uL (0.0-0.2) Glucose (Fingerstick) 105 mg/dL (70-99) Medications Active Scripts Medications Dose Route/Sig Max Daily Dose Days Date Category Culturelle (Lactobacillus Rhamnosus Gg) 1 Each Cap.sprink 1 Cap PO BID 06/06/17 Rx Cefpodoxime Proxetil 100 Mg Tablet 200 Mg PO BID 06/06/17 Rx Allopurinol 100 Mg Tablet 100 Mg PO DAILY 06/06/17 Rx Renvela (Sevelamer Carbonate) 800 Mg Tablet 3 Tab PO TID 06/03/17 Reported Entresto 49 mg-51 mg Tablet (Sacubitril/Valsartan) 1 Each Tablet 1 Each PO 06/03/17 Reported Lasix (Furosemide) 40 Mg Tablet 40 Mg PO BID 06/03/17 Reported Sensipar (Cinacalcet Hcl) 30 Mg Tablet 60 Mg PO DAILY 06/03/17 Reported Eliquis (Apixaban) 5 Mg Tablet 5 Mg PO BID 06/03/17 Reported Ferrous Sulfate 325 Mg Tablet 1 Tab PO TID 06/03/17 Reported Coreg (Carvedilol) 6.25 Mg Tablet 1 Tab PO BID 06/03/17 Reported Atorvastatin Calcium 20 Mg Tablet 20 Mg PO HS 06/03/17 Reported Novolog Flexpen (Insulin Aspart) 100 Unit/1 Ml Insuln.pen 0 Units SQ TIDWMEALS 30 01/12/17 Rx Levemir Flextouch (Insulin Detemir) 100 Unit/1 Ml Insuln.pen 20 Units SQ QHS 30 01/12/17 Rx Pravastatin Sodium 20 Mg Tablet 20 Mg PO DAILY 06/26/13 Reported Impression . 1. Abnormal CT chest revealing mild airspace disease LLL with suspected pneumonia. 2. A 4 mm left lingular pulmonary nodule. 3. Tobacco dependence, in remission, quit in 1979. 4. Bacteremia /2 bottles 01/12 GNR and now ? GPC 5. Possible sepsis. 7. End-stage renal disease. 8. Chronic toe wound on the right. 9. History of Enterobacter sepsis. 10. Cardiomyopathy with ejection fraction of 35%. 11. Prior history of cerebrovascular accident. 12. History of gout, diabetes and hypertension. Plan . 1. The patient is currently receiving Zosyn and vancomycin,ID following 2. We will follow clinical course and make further recommendations. 3. Follow Infectious Diseases recommendation. 4. Repeat CT chest in 6 months. 5. P.r.n. nebulized treatments. 6. Deep venous thrombosis and gastrointestinal prophylaxis. RIAZ FAITH MD Jan 15, 2018 14:01
[2018-01-15] MEDS: ANTI-COAG MONITOR BY PHARMACY. MC PRN (14:54)
[2018-01-15] MEDS: VANCOMYCIN PER PHARMACY MC PRN (14:56)
[2018-01-15 15:00] VITALS: BP 114/54
[2018-01-15] MEDS: VANCOMYCIN 500 MG in IV NORMAL SALINE 100ML 100 ML IV SCH (17:11)
[2018-01-15 19:00] VITALS: BP 119/69
[2018-01-15] MEDS: ATORVASTATIN CALCIUM 20 MG TABLET PO SCH (21:13)
[2018-01-15] MEDS: INSULIN GLARGINE 300 UNITS/3 ML INSULN.PEN. SQ SCH (21:19)
[2018-01-15 23:00] VITALS: BP 125/65
[2018-01-16] MEDS: PIPERACILLIN/TAZOBACTAM 2.25 GM in IV NORMAL SALINE 50ML 50 ML IV SCH ×3 (05:43→22:08)
[2018-01-16 05:59] LABS: BASO # 0.1 x10^3/uL (0.0-0.2); BASO % 1 % (0-3); EOS # 0.2 x10^3/uL (0.0-0.7); EOS % 3 % (0-3); HEMATOCRIT 32.5 % (39.0-53.0); HEMOGLOBIN 11.6 g/dL (13.0-17.5); LYMPH # 1.5 x10^3/uL (1.0-4.8); LYMPH % 19 % (24-48); MEAN CORPUSCULAR HEMOGLOBIN 35 pg (25-35); MEAN CORPUSCULAR HGB CONC 36 g/dL (31-37); MEAN CORPUSCULAR VOLUME 98 fL (79-100); MONO # 0.7 x10^3/uL (0.0-1.1); MONO % 9 % (0-9); NEUT # 5.4 x10^3uL (1.8-7.7); NEUT % 68 % (31-73); PLATELET COUNT 115 x10^3/uL (140-400); RED BLOOD COUNT 3.31 x10^6/uL (4.30-5.70); RED CELL DISTRIBUTION WIDTH 13.4 % (11.5-14.5); WHITE BLOOD COUNT 7.9 x10^3/uL (4.0-11.0)
[2018-01-16 06:28] LABS: ALBUMIN 3.1 g/dL (3.4-5.0); CALCIUM 7.6 mg/dL (8.5-10.1); GFR 9.3; PHOSPHORUS 3.3 mg/dL (2.6-4.7); POTASSIUM 3.6 mmol/L (3.5-5.1)
[2018-01-16 07:20] VITALS: BP 139/75
[2018-01-16] MEDS: INSULIN LISPRO 300 UNITS/3 ML INSULN.PEN. SQ SCH ×3 (08:00→17:00)
[2018-01-16] MEDS: SEVELAMER CARBONATE 800 MG TABLET. PO SCH ×3 (08:23→17:13)
[2018-01-16] MEDS: CINACALCET HCL 30 MG TABLET PO SCH (08:23)
[2018-01-16] MEDS: FERROUS SULFATE 325 MG TABLET. PO SCH ×3 (08:24→21:49)
[2018-01-16] MEDS: LACTOBACILLUS RHAMNOSUS GG 1 CAPSULE. PO SCH ×2 (08:24→21:49)
[2018-01-16] MEDS: ASCORBIC ACID 500 MG TABLET PO SCH (08:24)
[2018-01-16] MEDS: FOLIC/VIT B COMP W-C (RENAL) TABLET. PO SCH (08:24)
[2018-01-16] MEDS: ALLOPURINOL 100 MG TABLET. PO SCH (08:25)
[2018-01-16] MEDS: APIXABAN 5 MG TABLET. PO SCH ×2 (08:25→21:48)
[2018-01-16] MEDS: FUROSEMIDE 40 MG TABLET. PO SCH ×2 (08:25→14:03)
[2018-01-16] MEDS: CARVEDILOL 6.25 MG TABLET. PO SCH ×2 (08:26→17:14)
--- NOTE | 2018-01-16 08:28 | PDOC ---
Infectious Disease Note Subjective Subjective Better today No F/C/S/N/V/SOA/Rash or gross pain ROS ROS o/w neg Vital Sign Vital Signs Vital Signs Date Time Temp Pulse Resp B/P (MAP) Pulse Ox O2 Delivery O2 Flow Rate FiO2 01/16/18 08:26 78 125/65 01/15/18 23:00 98.0 18 97 98.0 01/15/18 20:27 Room Air Physical Exam PHYSICAL EXAM CONSTITUTIONAL: He is in the chair. He is cooperative. He is in no acute distress. Looks better HEENT: Pupils are equal and reactive. Oral cavity, pharynx is clear, with some questionable dentition. NECK: Supple, no JVD. LUNGS: Clear to auscultation bilaterally. HEART: S1, S2. ABDOMEN: Obese, soft, nontender and nondistended. EXTREMITIES: No clubbing or cyanosis. Right lower extremity cast has been removed an rooke boot in place - wound is clean no signs cellulitis. His left upper extremity has AV fistula, without signs of any complications. NEUROLOGIC: He is alert and oriented. He has no focal defects appreciated. SKIN: Warm to touch, without signs of generalized rash, but he does have some scabbing on his right upper extremity. IV site is clean Labs Lab Laboratory Tests Test 01/15/18 11:40 01/15/18 16:31 01/15/18 21:14 01/16/18 04:15 Glucose (Fingerstick) 105 mg/dL (70-99) 186 mg/dL (70-99) 122 mg/dL (70-99) White Blood Count 7.9 x10^3/uL (4.0-11.0) Red Blood Count 3.31 x10^6/uL (4.30-5.70) Hemoglobin 11.6 g/dL (13.0-17.5) Hematocrit 32.5 % (39.0-53.0) Mean Corpuscular Volume 98 fL (79-100) Mean Corpuscular Hemoglobin 35 pg (25-35) Mean Corpuscular Hemoglobin Concent 36 g/dL (31-37) Red Cell Distribution Width 13.4 % (11.5-14.5) Platelet Count 115 x10^3/uL (140-400) Neutrophils (%) (Auto) 68 % (31-73) Lymphocytes (%) (Auto) 19 % (24-48) Monocytes (%) (Auto) 9 % (0-9) Eosinophils (%) (Auto) 3 % (0-3) Basophils (%) (Auto) 1 % (0-3) Neutrophils # (Auto) 5.4 x10^3uL (1.8-7.7) Lymphocytes # (Auto) 1.5 x10^3/uL (1.0-4.8) Monocytes # (Auto) 0.7 x10^3/uL (0.0-1.1) Eosinophils # (Auto) 0.2 x10^3/uL (0.0-0.7) Basophils # (Auto) 0.1 x10^3/uL (0.0-0.2) Sodium Level 138 mmol/L (136-145) Potassium Level 3.6 mmol/L (3.5-5.1) Chloride Level 100 mmol/L (98-107) Carbon Dioxide Level 29 mmol/L (21-32) Anion Gap 9 (6-14) Blood Urea Nitrogen 48 mg/dL (8-26) Creatinine 6.0 mg/dL (0.7-1.3) Estimated GFR (Cockcroft-Gault) 9.3 Glucose Level 99 mg/dL (70-99) Calcium Level 7.6 mg/dL (8.5-10.1) Phosphorus Level 3.3 mg/dL (2.6-4.7) Albumin 3.1 g/dL (3.4-5.0) Test 01/16/18 08:04 Glucose (Fingerstick) 112 mg/dL (70-99) Micro Microbiology 01/12/18 Blood Culture - Final, Complete Objective Assessment Bacteremia 2/2 bottles 01/12 GNR and now ? GPC Leukocytosis - better CKD on HD M/W/F S/p cat scratches to R hand/arm - no gross cellulitis Toe wound on right - Wound care note reviewed N/V -better H/o Enterobacter sepsis December 2016 Plan Plan of Care Cont Vanc/ zosyn to q 8 Cont probiotics F/u labs and cults VIRIDIANA ARANA MD Jan 16, 2018 08:28
[2018-01-16 10:41] VITALS: BP 123/68
--- NOTE | 2018-01-16 11:31 | PDOC ---
PROGRESS NOTES History of Present Illness History of Present Illness Assessment/Plan Assessment/Plan N/V, diarrhea fever 1/2 bacteremia doubt PNA htn dm2 ESRD on HD mwf pafib on eliquis h/o left kidney Ca s/p nephrectomy CT showed 4mm lung nodule sepsis Mild left lung base airspace opacities likely atelectasis or infiltrate. plan: renal, ID following cont home meds, on lasix bid lantus 20u qhs, ssi cont HD Cont Vanc/ zosyn to q 8 wound care doc consult, cont eliquis dvt ppx PTOT check cdiff asked pt to fu with pcp for small lung nodule Vitals Vitals Vital Signs Date Time Temp Pulse Resp B/P (MAP) Pulse Ox O2 Delivery O2 Flow Rate FiO2 01/16/18 10:41 97.6 61 18 123/68 (86) 98 Room Air 97.6 Physical Exam Physical Exam CONSTITUTIONAL: He is in the chair. He is cooperative. He is in no acute distress. Looks better HEENT: Pupils are equal and reactive. Oral cavity, pharynx is clear, with some questionable dentition. NECK: Supple, no JVD. LUNGS: Clear to auscultation bilaterally. HEART: S1, S2. ABDOMEN: Obese, soft, nontender and nondistended. EXTREMITIES: No clubbing or cyanosis. Right lower extremity cast has been removed an rooke boot in place - wound is clean no signs cellulitis. His left upper extremity has AV fistula, without signs of any complications. NEUROLOGIC: He is alert and oriented. He has no focal defects appreciated. SKIN: Warm to touch, without signs of generalized rash, but he does have some scabbing on his right upper extremity. IV site is clean General: Alert, Oriented X3, Cooperative, No acute distress Heart: Regular rate Lungs: Clear Abdomen: Soft, No tenderness Extremities: No clubbing, No edema, No tenderness/swelling Skin: No rashes, No breakdown, Other (Pt with right great toe DFU wound. Following cast removal purulent drainage present from wound bed. Wound cx obtained. No surrounding erythema or edema present. Eccymosis present surrounding wound bed extending 0.8cm. Predebridement measurements 0.4x0.6x0.3. Undermining present from 12-12, with max depth of 0.8cm.) Labs LABS Laboratory Tests Test 01/15/18 11:40 01/15/18 16:31 01/15/18 21:14 01/16/18 04:15 Glucose (Fingerstick) 105 mg/dL (70-99) 186 mg/dL (70-99) 122 mg/dL (70-99) White Blood Count 7.9 x10^3/uL (4.0-11.0) Red Blood Count 3.31 x10^6/uL (4.30-5.70) Hemoglobin 11.6 g/dL (13.0-17.5) Hematocrit 32.5 % (39.0-53.0) Mean Corpuscular Volume 98 fL (79-100) Mean Corpuscular Hemoglobin 35 pg (25-35) Mean Corpuscular Hemoglobin Concent 36 g/dL (31-37) Red Cell Distribution Width 13.4 % (11.5-14.5) Platelet Count 115 x10^3/uL (140-400) Neutrophils (%) (Auto) 68 % (31-73) Lymphocytes (%) (Auto) 19 % (24-48) Monocytes (%) (Auto) 9 % (0-9) Eosinophils (%) (Auto) 3 % (0-3) Basophils (%) (Auto) 1 % (0-3) Neutrophils # (Auto) 5.4 x10^3uL (1.8-7.7) Lymphocytes # (Auto) 1.5 x10^3/uL (1.0-4.8) Monocytes # (Auto) 0.7 x10^3/uL (0.0-1.1) Eosinophils # (Auto) 0.2 x10^3/uL (0.0-0.7) Basophils # (Auto) 0.1 x10^3/uL (0.0-0.2) Sodium Level 138 mmol/L (136-145) Potassium Level 3.6 mmol/L (3.5-5.1) Chloride Level 100 mmol/L (98-107) Carbon Dioxide Level 29 mmol/L (21-32) Anion Gap 9 (6-14) Blood Urea Nitrogen 48 mg/dL (8-26) Creatinine 6.0 mg/dL (0.7-1.3) Estimated GFR (Cockcroft-Gault) 9.3 Glucose Level 99 mg/dL (70-99) Calcium Level 7.6 mg/dL (8.5-10.1) Phosphorus Level 3.3 mg/dL (2.6-4.7) Albumin 3.1 g/dL (3.4-5.0) Test 01/16/18 08:04 Glucose (Fingerstick) 112 mg/dL (70-99) Assessment and Plan Assessmemt and Plan Problems Medical Problems: (1) Pneumonia Status: Acute Comment Review of Relevant I have reviewed the following items jennifer (where applicable) has been applied. Labs Laboratory Tests Test 01/14/18 12:17 01/14/18 16:33 01/14/18 20:40 01/15/18 07:00 Glucose (Fingerstick) 156 mg/dL (70-99) 130 mg/dL (70-99) 176 mg/dL (70-99) Sodium Level 140 mmol/L (136-145) Potassium Level 3.5 mmol/L (3.5-5.1) Chloride Level 101 mmol/L (98-107) Carbon Dioxide Level 27 mmol/L (21-32) Anion Gap 12 (6-14) Blood Urea Nitrogen 53 mg/dL (8-26) Creatinine 6.1 mg/dL (0.7-1.3) Estimated GFR (Cockcroft-Gault) 9.1 Glucose Level 118 mg/dL (70-99) Calcium Level 7.1 mg/dL (8.5-10.1) Phosphorus Level 3.5 mg/dL (2.6-4.7) Albumin 2.9 g/dL (3.4-5.0) Test 01/15/18 07:18 01/15/18 07:25 01/15/18 11:40 01/15/18 16:31 Glucose (Fingerstick) 97 mg/dL (70-99) 105 mg/dL (70-99) 186 mg/dL (70-99) White Blood Count 6.1 x10^3/uL (4.0-11.0) Red Blood Count 3.06 x10^6/uL (4.30-5.70) Hemoglobin 10.7 g/dL (13.0-17.5) Hematocrit 30.1 % (39.0-53.0) Mean Corpuscular Volume 98 fL (79-100) Mean Corpuscular Hemoglobin 35 pg (25-35) Mean Corpuscular Hemoglobin Concent 36 g/dL (31-37) Red Cell Distribution Width 13.6 % (11.5-14.5) Platelet Count 105 x10^3/uL (140-400) Neutrophils (%) (Auto) 72 % (31-73) Lymphocytes (%) (Auto) 19 % (24-48) Monocytes (%) (Auto) 5 % (0-9) Eosinophils (%) (Auto) 3 % (0-3) Basophils (%) (Auto) 1 % (0-3) Neutrophils # (Auto) 4.4 x10^3uL (1.8-7.7) Lymphocytes # (Auto) 1.1 x10^3/uL (1.0-4.8) Monocytes # (Auto) 0.3 x10^3/uL (0.0-1.1) Eosinophils # (Auto) 0.2 x10^3/uL (0.0-0.7) Basophils # (Auto) 0.1 x10^3/uL (0.0-0.2) Test 01/15/18 21:14 01/16/18 04:15 01/16/18 08:04 Glucose (Fingerstick) 122 mg/dL (70-99) 112 mg/dL (70-99) White Blood Count 7.9 x10^3/uL (4.0-11.0) Red Blood Count 3.31 x10^6/uL (4.30-5.70) Hemoglobin 11.6 g/dL (13.0-17.5) Hematocrit 32.5 % (39.0-53.0) Mean Corpuscular Volume 98 fL (79-100) Mean Corpuscular Hemoglobin 35 pg (25-35) Mean Corpuscular Hemoglobin Concent 36 g/dL (31-37) Red Cell Distribution Width 13.4 % (11.5-14.5) Platelet Count 115 x10^3/uL (140-400) Neutrophils (%) (Auto) 68 % (31-73) Lymphocytes (%) (Auto) 19 % (24-48) Monocytes (%) (Auto) 9 % (0-9) Eosinophils (%) (Auto) 3 % (0-3) Basophils (%) (Auto) 1 % (0-3) Neutrophils # (Auto) 5.4 x10^3uL (1.8-7.7) Lymphocytes # (Auto) 1.5 x10^3/uL (1.0-4.8) Monocytes # (Auto) 0.7 x10^3/uL (0.0-1.1) Eosinophils # (Auto) 0.2 x10^3/uL (0.0-0.7) Basophils # (Auto) 0.1 x10^3/uL (0.0-0.2) Sodium Level 138 mmol/L (136-145) Potassium Level 3.6 mmol/L (3.5-5.1) Chloride Level 100 mmol/L (98-107) Carbon Dioxide Level 29 mmol/L (21-32) Anion Gap 9 (6-14) Blood Urea Nitrogen 48 mg/dL (8-26) Creatinine 6.0 mg/dL (0.7-1.3) Estimated GFR (Cockcroft-Gault) 9.3 Glucose Level 99 mg/dL (70-99) Calcium Level 7.6 mg/dL (8.5-10.1) Phosphorus Level 3.3 mg/dL (2.6-4.7) Albumin 3.1 g/dL (3.4-5.0) Laboratory Tests Test 01/15/18 11:40 01/15/18 16:31 01/15/18 21:14 01/16/18 04:15 Glucose (Fingerstick) 105 mg/dL (70-99) 186 mg/dL (70-99) 122 mg/dL (70-99) White Blood Count 7.9 x10^3/uL (4.0-11.0) Red Blood Count 3.31 x10^6/uL (4.30-5.70) Hemoglobin 11.6 g/dL (13.0-17.5) Hematocrit 32.5 % (39.0-53.0) Mean Corpuscular Volume 98 fL (79-100) Mean Corpuscular Hemoglobin 35 pg (25-35) Mean Corpuscular Hemoglobin Concent 36 g/dL (31-37) Red Cell Distribution Width 13.4 % (11.5-14.5) Platelet Count 115 x10^3/uL (140-400) Neutrophils (%) (Auto) 68 % (31-73) Lymphocytes (%) (Auto) 19 % (24-48) Monocytes (%) (Auto) 9 % (0-9) Eosinophils (%) (Auto) 3 % (0-3) Basophils (%) (Auto) 1 % (0-3) Neutrophils # (Auto) 5.4 x10^3uL (1.8-7.7) Lymphocytes # (Auto) 1.5 x10^3/uL (1.0-4.8) Monocytes # (Auto) 0.7 x10^3/uL (0.0-1.1) Eosinophils # (Auto) 0.2 x10^3/uL (0.0-0.7) Basophils # (Auto) 0.1 x10^3/uL (0.0-0.2) Sodium Level 138 mmol/L (136-145) Potassium Level 3.6 mmol/L (3.5-5.1) Chloride Level 100 mmol/L (98-107) Carbon Dioxide Level 29 mmol/L (21-32) Anion Gap 9 (6-14) Blood Urea Nitrogen 48 mg/dL (8-26) Creatinine 6.0 mg/dL (0.7-1.3) Estimated GFR (Cockcroft-Gault) 9.3 Glucose Level 99 mg/dL (70-99) Calcium Level 7.6 mg/dL (8.5-10.1) Phosphorus Level 3.3 mg/dL (2.6-4.7) Albumin 3.1 g/dL (3.4-5.0) Test 01/16/18 08:04 Glucose (Fingerstick) 112 mg/dL (70-99) Microbiology 01/13/18 Blood Culture - Preliminary, Resulted NO GROWTH AFTER 2 DAYS Medications Current Medications Piperacillin Sod/ Tazobactam Sod (Zosyn Per Pharmacy) 1 each PRN DAILY PRN MC SEE COMMENTS; Start 01/12/18 at 19:15; Stop 01/13/18 at 11:24; Status DC Vancomycin HCl (Vanco Per Pharmacy) 1 each PRN DAILY PRN MC SEE COMMENTS Last administered on 01/15/18at 14:56; Start 01/12/18 at 19:15 Vancomycin HCl 2 gm/Sodium Chloride 500 ml @ 250 mls/hr 1X ONCE IV Last administered on 01/12/18at 20:08; Start 01/12/18 at 20:00; Stop 01/12/18 at 21:59; Status DC Piperacillin Sod/ Tazobactam Sod 2.25 gm/Sodium Chloride 50 ml @ 100 mls/hr 1X ONCE IV Last administered on 01/12/18at 19:31; Start 01/12/18 at 19:30; Stop 01/12/18 at 19:59; Status DC Ondansetron HCl (Zofran) 4 mg PRN Q8HRS PRN IV NAUSEA/VOMITING; Start 01/12/18 at 19:30; Stop 01/13/18 at 19:29; Status DC Piperacillin Sod/ Tazobactam Sod 2.25 gm/Sodium Chloride 50 ml @ 100 mls/hr Q6HRS IV Last administered on 01/13/18at 11:11; Start 01/13/18 at 00:00; Stop 01/13 at 11:24; Status DC Vancomycin HCl (Vancomycin Random Level) 1 each 1X ONCE MC ; Start 01/15/18 at 06:00; Stop 01/15/18 at 06:00; Status DC Acetaminophen (Tylenol) 650 mg PRN Q6HRS PRN PO FEVER; Start 01/13/18 at 08:45 Ondansetron HCl (Zofran) 4 mg PRN Q6HRS PRN IV NAUSEA/VOMITING; Start 01/13/18 at 08:45 Morphine Sulfate (Morphine Sulfate) 2 mg PRN Q2HR PRN IV MODERATE TO SEVERE PAIN; Start 01/13/18 at 08:45 Tramadol HCl (Ultram) 50 mg PRN Q6HRS PRN PO MILD TO MODERATE PAIN; Start at 08:45 Docusate Sodium (Colace) 100 mg PRN DAILY PRN PO CONSTIPATION; Start 01/13/18 at 08:45 Allopurinol (Zyloprim) 100 mg DAILY PO Last administered on 01/16/18at 08:25; Start 01/13/18 at 09:00 Apixaban (Eliquis) 5 mg BID PO Last administered on 01/16/18at 08:25; Start at 09:00 Atorvastatin Calcium (Lipitor) 20 mg HS PO Last administered on 01/15/18at 21:13 ; Start 01/13/18 at 21:00 Carvedilol (Coreg) 6.25 mg BIDWMEALS PO Last administered on 01/16/18 08:26; Start 01/13/18 at 09:00 Cinacalcet (Sensipar) 60 mg DAILY PO Last administered on 01/16/18 08:23; Start 01/13/18 at 09:00 Ferrous Sulfate (Feosol) 325 mg TID PO Last administered on 01/16/18 08:24; Start 01/13/18 at 09:00 Furosemide (Lasix) 40 mg BID92 PO Last administered on 01/16/18 08:25; Start at 09:00 Sevelamer Carbonate (Renvela) 2,400 mg TIDWMEALS PO Last administered on 08:23; Start 01/13/18 at 09:00 Insulin Glargine (Lantus) 20 units QHS SQ Last administered on 01/15/18 21:19; Start 01/13/18 at 21:00 Atorvastatin Calcium (Lipitor) 5 mg QHS PO ; Start 01/13/18 at 21:00; Status Cancel Insulin Human Lispro (HumaLOG) 0-9 UNITS TIDWMEALS SQ Last administered on 17:40; Start 01/13/18 at 12:00 Dextrose (Dextrose 50%-Water Syringe) 12.5 gm PRN Q15MIN PRN IV SEE COMMENTS; Start 01/13/18 at 08:45 Piperacillin Sod/ Tazobactam Sod 2.25 gm/Sodium Chloride 50 ml @ 100 mls/hr Q8HRS IV Last administered on 01/16/18at 05:43; Start 01/13/18 at 14:00 Lactobacillus Rhamnosus (Culturelle) 1 cap BID PO Last administered on at 08:24; Start 01/13/18 at 21:00 Sodium Chloride 1,000 ml @ 1,000 mls/hr Q1H PRN IV hypotension; Start 01/13/18 at 12:00; Stop 01/13/18 at 17:59; Status DC Sodium Chloride 1,000 ml @ 400 mls/hr Q2H30M PRN IV PATENCY; Start 01/13/18 at 12:00; Stop 01/13/18 at 23:59; Status DC Info (PHARMACY MONITORING -- do not chart) 1 each PRN DAILY PRN MC SEE COMMENTS ; Start 01/13/18 at 15:30; Stop 01/15/18 at 14:53; Status DC Info (PHARMACY MONITORING -- do not chart) 1 each PRN DAILY PRN MC SEE COMMENTS ; Start 01/13/18 at 15:30; Status UNV Albuterol Sulfate (Ventolin Neb Soln) 2.5 mg PRN Q4HRS PRN NEB SHORTNESS OF BREATH; Start 01/13/18 at 16:45 Ascorbic Acid (Vitamin C) 500 mg DAILY PO Last administered on 01/16/18at 08:24; Start 01/14/18 at 09:30 Vitamin B Complex/ Vitamin C (Mindy-Maureen) 1 tab DAILY PO Last administered on 01/16/18at 08:24; Start 01/14/18 at 09:30 Info (Anti-Coagulation Monitoring By Pharmacy) 1 each PRN DAILY PRN MC SEE COMMENTS Last administered on 01/15/18at 14:54; Start 01/14/18 at 11:45 Vancomycin HCl 500 mg/Sodium Chloride 100 ml @ 100 mls/hr ONCE ONCE IV Last administered on 01/14/18at 16:32; Start 01/14/18 at 15:00; Stop 01/14/18 at 15:59; Status DC Vancomycin HCl 500 mg/Sodium Chloride 100 ml @ 100 mls/hr QMWF IV Last administered on 01/15/18at 17:11; Start 01/15/18 at 16:00 Sodium Chloride 1,000 ml @ 1,000 mls/hr Q1H PRN IV hypotension; Start 01/15/18 at 06:30; Stop 01/15/18 at 12:29; Status DC Diphenhydramine HCl (Benadryl) 25 mg 1X PRN PRN IV ITCHING; Start 01/15/18 at 06 :30; Stop 01/16/18 at 06:29; Status DC Diphenhydramine HCl (Benadryl) 25 mg 1X PRN PRN IV ITCHING; Start 01/15/18 at 06 :30; Stop 01/16/18 at 06:29; Status DC Sodium Chloride 1,000 ml @ 400 mls/hr Q2H30M PRN IV PATENCY; Start 01/15/18 at 06:30; Stop 01/15/18 at 18:29; Status DC Info (PHARMACY MONITORING -- do not chart) 1 each PRN DAILY PRN MC SEE COMMENTS ; Start 01/15/18 at 06:30 Active Scripts Active Culturelle (Lactobacillus Rhamnosus Gg) 1 Each Cap.sprink 1 Cap PO BID Cefpodoxime Proxetil 100 Mg Tablet 200 Mg PO BID Allopurinol 100 Mg Tablet 100 Mg PO DAILY Novolog Flexpen (Insulin Aspart) 100 Unit/1 Ml Insuln.pen 0 Units SQ TIDWMEALS 30 Days Levemir Flextouch (Insulin Detemir) 100 Unit/1 Ml Insuln.pen 20 Units SQ QHS 30 Days Reported Renvela (Sevelamer Carbonate) 800 Mg Tablet 3 Tab PO TID Entresto 49 mg-51 mg Tablet (Sacubitril/Valsartan) 1 Each Tablet 1 Each PO Lasix (Furosemide) 40 Mg Tablet 40 Mg PO BID Sensipar (Cinacalcet Hcl) 30 Mg Tablet 60 Mg PO DAILY Eliquis (Apixaban) 5 Mg Tablet 5 Mg PO BID Ferrous Sulfate 325 Mg Tablet 1 Tab PO TID Coreg (Carvedilol) 6.25 Mg Tablet 1 Tab PO BID Atorvastatin Calcium 20 Mg Tablet 20 Mg PO HS Pravastatin Sodium 20 Mg Tablet 20 Mg PO DAILY Vitals/I & O Vital Sign - Last 24 Hours 01/15/18 01/15/18 01/15/18 01/15/18 15:00 17:15 19:00 20:27 Temp 97.8 98.4 97.8 98.4 Pulse 72 72 63 Resp 20 18 B/P (MAP) 114/54 (74) 114/54 119/69 (86) Pulse Ox 100 94 O2 Delivery Room Air Room Air 01/15/18 01/16/18 01/16/18 01/16/18 23:00 07:20 08:00 08:26 Temp 98.0 97.6 98.0 97.6 Pulse 97 74 78 Resp 18 18 B/P (MAP) 125/65 (85) 139/75 (96) 125/65 Pulse Ox 97 98 O2 Delivery Room Air Room Air 01/16/18 10:41 Temp 97.6 97.6 Pulse 61 Resp 18 B/P (MAP) 123/68 (86) Pulse Ox 98 O2 Delivery Room Air Intake and Output 01/15/18 01/15/18 01/16/18 15:00 23:00 07:00 Intake Total 290 ml 400 ml 340 ml Output Total 500 ml Balance 290 ml 400 ml -160 ml VERENA OROZCO MD Jan 16, 2018 11:31
--- NOTE | 2018-01-16 12:25 | PDOC ---
PULMONARY PROGRESS NOTES Subjective no soa Vitals Vital Signs Date Time Temp Pulse Resp B/P (MAP) Pulse Ox O2 Delivery O2 Flow Rate FiO2 01/16/18 12:21 98 Room Air 01/16/18 10:41 97.6 61 18 123/68 (86) 97.6 General: Alert, No acute distress Lungs: Clear Cardiovascular: S1 Abdomen: Soft Neuro Exam: Alert Extremities: Other (right leg cast) Skin: Warm Labs Laboratory Tests Test 01/14/18 16:33 01/14/18 20:40 01/15/18 07:00 01/15/18 07:18 Glucose (Fingerstick) 130 mg/dL (70-99) 176 mg/dL (70-99) 97 mg/dL (70-99) Sodium Level 140 mmol/L (136-145) Potassium Level 3.5 mmol/L (3.5-5.1) Chloride Level 101 mmol/L (98-107) Carbon Dioxide Level 27 mmol/L (21-32) Anion Gap 12 (6-14) Blood Urea Nitrogen 53 mg/dL (8-26) Creatinine 6.1 mg/dL (0.7-1.3) Estimated GFR (Cockcroft-Gault) 9.1 Glucose Level 118 mg/dL (70-99) Calcium Level 7.1 mg/dL (8.5-10.1) Phosphorus Level 3.5 mg/dL (2.6-4.7) Albumin 2.9 g/dL (3.4-5.0) Test 01/15/18 07:25 01/15/18 11:40 01/15/18 16:31 01/15/18 21:14 White Blood Count 6.1 x10^3/uL (4.0-11.0) Red Blood Count 3.06 x10^6/uL (4.30-5.70) Hemoglobin 10.7 g/dL (13.0-17.5) Hematocrit 30.1 % (39.0-53.0) Mean Corpuscular Volume 98 fL (79-100) Mean Corpuscular Hemoglobin 35 pg (25-35) Mean Corpuscular Hemoglobin Concent 36 g/dL (31-37) Red Cell Distribution Width 13.6 % (11.5-14.5) Platelet Count 105 x10^3/uL (140-400) Neutrophils (%) (Auto) 72 % (31-73) Lymphocytes (%) (Auto) 19 % (24-48) Monocytes (%) (Auto) 5 % (0-9) Eosinophils (%) (Auto) 3 % (0-3) Basophils (%) (Auto) 1 % (0-3) Neutrophils # (Auto) 4.4 x10^3uL (1.8-7.7) Lymphocytes # (Auto) 1.1 x10^3/uL (1.0-4.8) Monocytes # (Auto) 0.3 x10^3/uL (0.0-1.1) Eosinophils # (Auto) 0.2 x10^3/uL (0.0-0.7) Basophils # (Auto) 0.1 x10^3/uL (0.0-0.2) Glucose (Fingerstick) 105 mg/dL (70-99) 186 mg/dL (70-99) 122 mg/dL (70-99) Test 01/16/18 04:15 01/16/18 08:04 01/16/18 11:33 White Blood Count 7.9 x10^3/uL (4.0-11.0) Red Blood Count 3.31 x10^6/uL (4.30-5.70) Hemoglobin 11.6 g/dL (13.0-17.5) Hematocrit 32.5 % (39.0-53.0) Mean Corpuscular Volume 98 fL (79-100) Mean Corpuscular Hemoglobin 35 pg (25-35) Mean Corpuscular Hemoglobin Concent 36 g/dL (31-37) Red Cell Distribution Width 13.4 % (11.5-14.5) Platelet Count 115 x10^3/uL (140-400) Neutrophils (%) (Auto) 68 % (31-73) Lymphocytes (%) (Auto) 19 % (24-48) Monocytes (%) (Auto) 9 % (0-9) Eosinophils (%) (Auto) 3 % (0-3) Basophils (%) (Auto) 1 % (0-3) Neutrophils # (Auto) 5.4 x10^3uL (1.8-7.7) Lymphocytes # (Auto) 1.5 x10^3/uL (1.0-4.8) Monocytes # (Auto) 0.7 x10^3/uL (0.0-1.1) Eosinophils # (Auto) 0.2 x10^3/uL (0.0-0.7) Basophils # (Auto) 0.1 x10^3/uL (0.0-0.2) Sodium Level 138 mmol/L (136-145) Potassium Level 3.6 mmol/L (3.5-5.1) Chloride Level 100 mmol/L (98-107) Carbon Dioxide Level 29 mmol/L (21-32) Anion Gap 9 (6-14) Blood Urea Nitrogen 48 mg/dL (8-26) Creatinine 6.0 mg/dL (0.7-1.3) Estimated GFR (Cockcroft-Gault) 9.3 Glucose Level 99 mg/dL (70-99) Calcium Level 7.6 mg/dL (8.5-10.1) Phosphorus Level 3.3 mg/dL (2.6-4.7) Albumin 3.1 g/dL (3.4-5.0) Glucose (Fingerstick) 112 mg/dL (70-99) 128 mg/dL (70-99) Laboratory Tests Test 01/15/18 16:31 01/15/18 21:14 01/16/18 04:15 01/16/18 08:04 Glucose (Fingerstick) 186 mg/dL (70-99) 122 mg/dL (70-99) 112 mg/dL (70-99) White Blood Count 7.9 x10^3/uL (4.0-11.0) Red Blood Count 3.31 x10^6/uL (4.30-5.70) Hemoglobin 11.6 g/dL (13.0-17.5) Hematocrit 32.5 % (39.0-53.0) Mean Corpuscular Volume 98 fL (79-100) Mean Corpuscular Hemoglobin 35 pg (25-35) Mean Corpuscular Hemoglobin Concent 36 g/dL (31-37) Red Cell Distribution Width 13.4 % (11.5-14.5) Platelet Count 115 x10^3/uL (140-400) Neutrophils (%) (Auto) 68 % (31-73) Lymphocytes (%) (Auto) 19 % (24-48) Monocytes (%) (Auto) 9 % (0-9) Eosinophils (%) (Auto) 3 % (0-3) Basophils (%) (Auto) 1 % (0-3) Neutrophils # (Auto) 5.4 x10^3uL (1.8-7.7) Lymphocytes # (Auto) 1.5 x10^3/uL (1.0-4.8) Monocytes # (Auto) 0.7 x10^3/uL (0.0-1.1) Eosinophils # (Auto) 0.2 x10^3/uL (0.0-0.7) Basophils # (Auto) 0.1 x10^3/uL (0.0-0.2) Sodium Level 138 mmol/L (136-145) Potassium Level 3.6 mmol/L (3.5-5.1) Chloride Level 100 mmol/L (98-107) Carbon Dioxide Level 29 mmol/L (21-32) Anion Gap 9 (6-14) Blood Urea Nitrogen 48 mg/dL (8-26) Creatinine 6.0 mg/dL (0.7-1.3) Estimated GFR (Cockcroft-Gault) 9.3 Glucose Level 99 mg/dL (70-99) Calcium Level 7.6 mg/dL (8.5-10.1) Phosphorus Level 3.3 mg/dL (2.6-4.7) Albumin 3.1 g/dL (3.4-5.0) Test 01/16/18 11:33 Glucose (Fingerstick) 128 mg/dL (70-99) Medications Active Scripts Medications Dose Route/Sig Max Daily Dose Days Date Category Culturelle (Lactobacillus Rhamnosus Gg) 1 Each Cap.sprink 1 Cap PO BID 06/06/17 Rx Cefpodoxime Proxetil 100 Mg Tablet 200 Mg PO BID 06/06/17 Rx Allopurinol 100 Mg Tablet 100 Mg PO DAILY 06/06/17 Rx Renvela (Sevelamer Carbonate) 800 Mg Tablet 3 Tab PO TID 06/03/17 Reported Entresto 49 mg-51 mg Tablet (Sacubitril/Valsartan) 1 Each Tablet 1 Each PO 06/03/17 Reported Lasix (Furosemide) 40 Mg Tablet 40 Mg PO BID 06/03/17 Reported Sensipar (Cinacalcet Hcl) 30 Mg Tablet 60 Mg PO DAILY 06/03/17 Reported Eliquis (Apixaban) 5 Mg Tablet 5 Mg PO BID 06/03/17 Reported Ferrous Sulfate 325 Mg Tablet 1 Tab PO TID 06/03/17 Reported Coreg (Carvedilol) 6.25 Mg Tablet 1 Tab PO BID 06/03/17 Reported Atorvastatin Calcium 20 Mg Tablet 20 Mg PO HS 06/03/17 Reported Novolog Flexpen (Insulin Aspart) 100 Unit/1 Ml Insuln.pen 0 Units SQ TIDWMEALS 30 01/12/17 Rx Levemir Flextouch (Insulin Detemir) 100 Unit/1 Ml Insuln.pen 20 Units SQ QHS 30 01/12/17 Rx Pravastatin Sodium 20 Mg Tablet 20 Mg PO DAILY 06/26/13 Reported Impression . 1. Abnormal CT chest revealing mild airspace disease LLL with suspected pneumonia. 2. A 4 mm left lingular pulmonary nodule. 3. Tobacco dependence, in remission, quit in 1979. 4. Bacteremia /2 bottles 01/12 GNR and now ? GPC 5. Possible sepsis. 7. End-stage renal disease. 8. Chronic toe wound on the right. 9. History of Enterobacter sepsis. 10. Cardiomyopathy with ejection fraction of 35%. 11. Prior history of cerebrovascular accident. 12. History of gout, diabetes and hypertension. Plan . 1. The patient is currently receiving Zosyn and vancomycin,ID following 2. We will follow clinical course and make further recommendations. 3. Follow Infectious Diseases recommendation. 4. Repeat CT chest in 6 months. reg 4 mm lingular nodule 5. P.r.n. nebulized treatments. 6. Deep venous thrombosis and gastrointestinal prophylaxis. 7. pulmonary status is stable RIAZ FAITH MD Jan 16, 2018 12:25
[2018-01-16 14:37] VITALS: BP 119/65
[2018-01-16 19:00] VITALS: BP 150/85
[2018-01-16] MEDS: ATORVASTATIN CALCIUM 20 MG TABLET PO SCH (21:49)
[2018-01-16] MEDS: INSULIN GLARGINE 300 UNITS/3 ML INSULN.PEN. SQ SCH (21:53)
[2018-01-16 23:00] VITALS: BP 130/62
[2018-01-17] MEDS: PIPERACILLIN/TAZOBACTAM 2.25 GM in IV NORMAL SALINE 50ML 50 ML IV SCH ×3 (05:57→20:59)
[2018-01-17 06:17] VITALS: BP 158/83
[2018-01-17 06:28] LABS: BASO # 0.1 x10^3/uL (0.0-0.2); BASO % 1 % (0-3); EOS # 0.3 x10^3/uL (0.0-0.7); EOS % 3 % (0-3); HEMATOCRIT 29.6 % (39.0-53.0); HEMOGLOBIN 10.4 g/dL (13.0-17.5); LYMPH # 1.6 x10^3/uL (1.0-4.8); LYMPH % 18 % (24-48); MEAN CORPUSCULAR HEMOGLOBIN 34 pg (25-35); MEAN CORPUSCULAR HGB CONC 35 g/dL (31-37); MEAN CORPUSCULAR VOLUME 98 fL (79-100); MONO # 0.7 x10^3/uL (0.0-1.1); MONO % 8 % (0-9); NEUT # 6.4 x10^3uL (1.8-7.7); NEUT % 70 % (31-73); PLATELET COUNT 110 x10^3/uL (140-400); RED BLOOD COUNT 3.03 x10^6/uL (4.30-5.70); RED CELL DISTRIBUTION WIDTH 13.5 % (11.5-14.5); WHITE BLOOD COUNT 9.1 x10^3/uL (4.0-11.0)
[2018-01-17 07:07] LABS: CALCIUM 7.5 mg/dL (8.5-10.1); CREATININE 7.3 mg/dL (0.7-1.3); GFR 7.4; PHOSPHORUS 4.1 mg/dL (2.6-4.7); POTASSIUM 3.7 mmol/L (3.5-5.1)
[2018-01-17] MEDS: INSULIN LISPRO 300 UNITS/3 ML INSULN.PEN. SQ SCH ×3 (08:00→16:30)
[2018-01-17] MEDS: CARVEDILOL 6.25 MG TABLET. PO SCH ×2 (08:00→16:44)
[2018-01-17] MEDS: SEVELAMER CARBONATE 800 MG TABLET. PO SCH ×3 (08:13→16:44)
[2018-01-17] MEDS: CINACALCET HCL 30 MG TABLET PO SCH (08:13)
[2018-01-17] MEDS: APIXABAN 5 MG TABLET. PO SCH ×2 (08:14→20:48)
[2018-01-17] MEDS: FOLIC/VIT B COMP W-C (RENAL) TABLET. PO SCH (08:14)
[2018-01-17] MEDS: ALLOPURINOL 100 MG TABLET. PO SCH (08:14)
[2018-01-17] MEDS: LACTOBACILLUS RHAMNOSUS GG 1 CAPSULE. PO SCH ×2 (08:14→20:48)
[2018-01-17] MEDS: ASCORBIC ACID 500 MG TABLET PO SCH (08:14)
[2018-01-17] MEDS: FERROUS SULFATE 325 MG TABLET. PO SCH ×3 (08:14→20:48)
[2018-01-17] MEDS ORDERED: IV NORMAL SALINE 1000ML BAG 1,000 ML IV PRN ×2 (08:36)
[2018-01-17] MEDS ORDERED: cloNIDine HCL 0.1 MG TABLET PO PRN (08:45)
[2018-01-17] MEDS ORDERED: LABETALOL 20 MG/4 ML DISP.SYRIN. IVP PRN (08:45)
[2018-01-17] MEDS ORDERED: ALBUMIN HUMAN 25% 200 ML IV PRN (08:45)
[2018-01-17] MEDS ORDERED: DIALYSIS PATIENT. MC PRN ×2 (08:45)
[2018-01-17] MEDS ORDERED: diphenhydrAMINE 50 MG/ML VIAL IV PRN ×2 (08:45)
[2018-01-17] MEDS ORDERED: ACETAMINOPHEN 500 MG TABLET PO PRN (08:45)
[2018-01-17] MEDS: FUROSEMIDE 40 MG TABLET. PO SCH ×2 (09:00→13:31)
--- NOTE | 2018-01-17 09:35 | PDOC ---
Infectious Disease Note Subjective Subjective Better today. Back to baseline and is hoping to go home soon No F/C/S/N/V/SOA/Rash or gross pain ROS ROS o/w neg Vital Sign Vital Signs Vital Signs Date Time Temp Pulse Resp B/P (MAP) Pulse Ox O2 Delivery O2 Flow Rate FiO2 01/17/18 08:03 Room Air 01/17/18 06:17 98.1 62 20 158/83 (108) 95 98.1 Physical Exam PHYSICAL EXAM CONSTITUTIONAL: He is in HD He is cooperative. He is in no acute distress. Looks better HEENT: Pupils are equal and reactive. Oral cavity, pharynx is clear, with some questionable dentition. NECK: Supple, no JVD. LUNGS: Clear to auscultation bilaterally. HEART: S1, S2. ABDOMEN: Obese, soft, nontender and nondistended. EXTREMITIES: No clubbing or cyanosis. Right lower extremity cast has been removed an rooke boot in place - wound is clean no signs cellulitis. His left upper extremity has AV fistula, without signs of any complications. NEUROLOGIC: He is alert and oriented. He has no focal defects appreciated. SKIN: Warm to touch, without signs of generalized rash, but he does have some scabbing on his right upper extremity. IV site is clean Labs Lab Laboratory Tests Test 01/16/18 11:33 01/16/18 16:47 01/16/18 21:09 01/17/18 05:15 Glucose (Fingerstick) 128 mg/dL (70-99) 133 mg/dL (70-99) 133 mg/dL (70-99) White Blood Count 9.1 x10^3/uL (4.0-11.0) Red Blood Count 3.03 x10^6/uL (4.30-5.70) Hemoglobin 10.4 g/dL (13.0-17.5) Hematocrit 29.6 % (39.0-53.0) Mean Corpuscular Volume 98 fL (79-100) Mean Corpuscular Hemoglobin 34 pg (25-35) Mean Corpuscular Hemoglobin Concent 35 g/dL (31-37) Red Cell Distribution Width 13.5 % (11.5-14.5) Platelet Count 110 x10^3/uL (140-400) Neutrophils (%) (Auto) 70 % (31-73) Lymphocytes (%) (Auto) 18 % (24-48) Monocytes (%) (Auto) 8 % (0-9) Eosinophils (%) (Auto) 3 % (0-3) Basophils (%) (Auto) 1 % (0-3) Neutrophils # (Auto) 6.4 x10^3uL (1.8-7.7) Lymphocytes # (Auto) 1.6 x10^3/uL (1.0-4.8) Monocytes # (Auto) 0.7 x10^3/uL (0.0-1.1) Eosinophils # (Auto) 0.3 x10^3/uL (0.0-0.7) Basophils # (Auto) 0.1 x10^3/uL (0.0-0.2) Sodium Level 140 mmol/L (136-145) Potassium Level 3.7 mmol/L (3.5-5.1) Chloride Level 99 mmol/L (98-107) Carbon Dioxide Level 27 mmol/L (21-32) Anion Gap 14 (6-14) Blood Urea Nitrogen 67 mg/dL (8-26) Creatinine 7.3 mg/dL (0.7-1.3) Estimated GFR (Cockcroft-Gault) 7.4 Glucose Level 82 mg/dL (70-99) Calcium Level 7.5 mg/dL (8.5-10.1) Phosphorus Level 4.1 mg/dL (2.6-4.7) Albumin 3.0 g/dL (3.4-5.0) Test 01/17/18 07:36 Glucose (Fingerstick) 81 mg/dL (70-99) Micro Microbiology 01/12/18 Blood Culture - Final, Complete Objective Assessment Bacteremia / bottles 01/12 Proteus and now ? GPC Leukocytosis - better CKD on HD M/W/F S/p cat scratches to R hand/arm - no gross cellulitis Toe wound on right - Wound care note reviewed. Cults obtained but it does not look infected N/V -better H/o Enterobacter sepsis December 2016 Plan Plan of Care Cont Vanc/ zosyn to q 8 Cont probiotics F/u labs and cults VIRIDIANA ARANA MD Jan 17, 2018 09:35
--- NOTE | 2018-01-17 10:05 | PDOC ---
SUBJECTIVE ROS Seen on HD, feeling better tolerating well - wants to go home OBJECTIVE Vital Signs Vital Signs Date Time Temp Pulse Resp B/P (MAP) Pulse Ox O2 Delivery O2 Flow Rate FiO2 01/17/18 08:03 Room Air 01/17/18 06:17 98.1 62 20 158/83 (108) 95 98.1 I & 0 Intake and Output 01/17/18 07:00 Intake Total 1380 ml Balance 1380 ml Intake Oral 1280 ml IV Total 100 ml # Voids 2 # Bowel Movements 2 PHYSICAL EXAM Physical Exam GEN: NAD HENT : Om Moist, On RA NECK: No JVD, supple CVS: RRR RESP: Few Crackles bases GI: BS + ve, NO Bruit, Non Tender, Non Distended : No CVA or SP tenderness, No [place] Skin No rash Ext- Lt Arm AV access Neuro- AxO x3 DIAGNOSIS/ASSESSMENT Assessment & Plan ESRD- MWF @ [facility] Seen on HD , tolerating well Continue as Ordered- 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 COMMENT/RELEVANT DATA Meds Current Medications Medications (Trade) Dose Ordered Sig/[place]anza Start Time Stop Time Status Last Admin Dose Admin Acetaminophen (Tylenol) 500 mg 1X PRN PRN 01/17/18 08:45 01/18/18 08:44 Albumin Human 200 ml @ 200 mls/hr 1X PRN PRN 01/17/18 08:45 01/17/18 14:44 Albuterol Sulfate (Ventolin Neb Soln) 2.5 mg PRN Q4HRS PRN 01/13/18 16:45 Allopurinol (Zyloprim) 100 mg DAILY 01/13/18 09:00 01/17/18 08:14 100 MG Apixaban (Eliquis) 5 mg BID 01/13/18 09:00 01/17/18 08:14 5 MG Ascorbic Acid (Vitamin C) 500 mg DAILY 01/14/18 09:30 01/17/18 08:14 500 MG Atorvastatin Calcium (Lipitor) 5 mg QHS 01/13/18 21:00 Cancel Carvedilol (Coreg) 6.25 mg BIDWMEALS 01/13/18 09:00 01/16/18 17:14 6.25 MG Cinacalcet (Sensipar) 60 mg DAILY 01/13/18 09:00 01/17/18 08:13 60 MG Clonidine HCl (Catapres) 0.1 mg 1X PRN PRN 01/17/18 08:45 01/18/18 08:44 Dextrose (Dextrose 50%-Water Syringe) 12.5 gm PRN Q15MIN PRN 01/13/18 08:45 Diphenhydramine HCl (Benadryl) 25 mg 1X PRN PRN 01/17/18 08:45 01/18/18 08:44 Docusate Sodium (Colace) 100 mg PRN DAILY PRN 01/13/18 08:45 Ferrous Sulfate (Feosol) 325 mg TID 01/13/18 09:00 01/17/18 08:14 325 MG Furosemide (Lasix) 40 mg [id number] 01/13/18 09:00 01/16/18 14:03 40 MG Info (Anti-Coagulation Monitoring By Pharmacy) 1 each PRN DAILY PRN 01/14/18 11:45 01/15/18 14:54 1 EACH Info (PHARMACY MONITORING -- do not chart) 1 each PRN DAILY PRN 01/17/18 08:45 Insulin Glargine (Lantus) 20 units QHS 01/13/18 21:00 01/16/18 21:53 20 UNITS Insulin Human Lispro (HumaLOG) 0-9 UNITS TIDWMEALS 01/13/18 12:00 01/15/18 17:40 4 UNITS Labetalol HCl (Normodyne Iv Push) 10 mg PRN Q1HR PRN 01/17/18 08:45 01/18/18 08:44 Lactobacillus Rhamnosus (Culturelle) 1 cap BID 01/13/18 21:00 01/17/18 08:14 1 CAP Morphine Sulfate (Morphine Sulfate) 2 mg PRN Q2HR PRN 01/13/18 08:45 Ondansetron HCl (Zofran) 4 mg PRN Q6HRS PRN 01/13/18 08:45 Piperacillin Sod/ Tazobactam Sod (Zosyn Per Pharmacy) 1 each PRN DAILY PRN 01/12/18 19:15 01/13/18 11:24 DC Piperacillin Sod/ Tazobactam Sod 2.25 gm/Sodium Chloride 50 ml @ 100 mls/hr Q8HRS 01/13/18 14:00 01/17/18 05:57 100 MLS/HR Sevelamer Carbonate (Renvela) 2,400 mg TIDWMEALS 01/13/18 09:00 01/17/18 08:13 2,400 MG Sodium Chloride 1,000 ml @ 400 mls/hr Q2H30M PRN 01/17/18 08:36 01/17/18 20:35 Tramadol HCl (Ultram) 50 mg PRN Q6HRS PRN 01/13/18 08:45 Vancomycin HCl (Vanco Per Pharmacy) 1 each PRN DAILY PRN 01/12/18 19:15 01/15/18 14:56 1 EACH Vancomycin HCl (Vancomycin Random Level) 1 each 1X ONCE 01/15/18 06:00 01/15/18 06:00 DC Vancomycin HCl 500 mg/Sodium Chloride 100 ml @ 100 mls/hr QMWF 01/15/18 16:00 01/15/18 17:11 100 MLS/HR Vancomycin HCl 2 gm/Sodium Chloride 500 ml @ 250 mls/hr 1X ONCE 01/12/18 20:00 01/12/18 21:59 DC 01/12/18 20:08 250 MLS/HR Vitamin B Complex/ Vitamin C (Mindy-Maureen) 1 tab DAILY 01/14/18 09:30 01/17/18 08:14 1 TAB Lab Laboratory Tests Test 01/16/18 11:33 01/16/18 16:47 01/16/18 21:09 01/17/18 05:15 Glucose (Fingerstick) 128 mg/dL (70-99) 133 mg/dL (70-99) 133 mg/dL (70-99) White Blood Count 9.1 x10^3/uL (4.0-11.0) Red Blood Count 3.03 x10^6/uL (4.30-5.70) Hemoglobin 10.4 g/dL (13.0-17.5) Hematocrit 29.6 % (39.0-53.0) Mean Corpuscular Volume 98 fL (79-100) Mean Corpuscular Hemoglobin 34 pg (25-35) Mean Corpuscular Hemoglobin Concent 35 g/dL (31-37) Red Cell Distribution Width 13.5 % (11.5-14.5) Platelet Count 110 x10^3/uL (140-400) Neutrophils (%) (Auto) 70 % (31-73) Lymphocytes (%) (Auto) 18 % (24-48) Monocytes (%) (Auto) 8 % (0-9) Eosinophils (%) (Auto) 3 % (0-3) Basophils (%) (Auto) 1 % (0-3) Neutrophils # (Auto) 6.4 x10^3uL (1.8-7.7) Lymphocytes # (Auto) 1.6 x10^3/uL (1.0-4.8) Monocytes # (Auto) 0.7 x10^3/uL (0.0-1.1) Eosinophils # (Auto) 0.3 x10^3/uL (0.0-0.7) Basophils # (Auto) 0.1 x10^3/uL (0.0-0.2) Sodium Level 140 mmol/L (136-145) Potassium Level 3.7 mmol/L (3.5-5.1) Chloride Level 99 mmol/L (98-107) Carbon Dioxide Level 27 mmol/L (21-32) Anion Gap 14 (6-14) Blood Urea Nitrogen 67 mg/dL (8-26) Creatinine 7.3 mg/dL (0.7-1.3) Estimated GFR (Cockcroft-Gault) 7.4 Glucose Level 82 mg/dL (70-99) Calcium Level 7.5 mg/dL (8.5-10.1) Phosphorus Level 4.1 mg/dL (2.6-4.7) Albumin 3.0 g/dL (3.4-5.0) Test 01/17/18 07:36 Glucose (Fingerstick) 81 mg/dL (70-99) Results All relevant outside records, renal labs, imaging studies, telemetry/EKG's were reviewed. TREVIN CERNA MD Jan 17, 2018 10:05
--- NOTE | 2018-01-17 12:22 | PDOC ---
PROGRESS NOTES Chief Complaint Chief Complaint N/V, diarrhea fever 2/2 bacteremia doubt PNA? htn dm2 ESRD on HD mwf pafib on eliquis h/o left kidney Ca s/p nephrectomy CT showed 4mm lung nodule sepsis rt big toe chronic wound s/p i and d 01/14 Mild left lung base airspace opacities likely atelectasis or infiltrate. plan: renal, ID following cont home meds, on lasix bid lantus 20u qhs, ssi cont HD Cont Vanc/ zosyn to q 8 wound care doc consult, did i and d 01/14 , not look infected , but + wound cx cont eliquis dvt ppx PTOT fu bcx, 01/12 + ,neg 01/13. asked pt to fu with pcp for small lung nodule History of Present Illness History of Present Illness ROS: no fever, chills, sob or chest pain feels ok ,wants to go home wound cx pending, final bcx pending no cough ever Vitals Vitals Vital Signs Date Time Temp Pulse Resp B/P (MAP) Pulse Ox O2 Delivery O2 Flow Rate FiO2 01/17/18 08:03 Room Air 01/17/18 06:17 98.1 62 20 158/83 (108) 95 98.1 Physical Exam Physical Exam CONSTITUTIONAL: He is in HD He is cooperative. He is in no acute distress. Looks better HEENT: Pupils are equal and reactive. Oral cavity, pharynx is clear, with some questionable dentition. NECK: Supple, no JVD. LUNGS: Clear to auscultation bilaterally. HEART: S1, S2. ABDOMEN: Obese, soft, nontender and nondistended. EXTREMITIES: No clubbing or cyanosis. Right lower extremity cast has been removed an rooke boot in place - wound is clean no signs cellulitis. His left upper extremity has AV fistula, without signs of any complications. NEUROLOGIC: He is alert and oriented. He has no focal defects appreciated. SKIN: Warm to touch, without signs of generalized rash, but he does have some scabbing on his right upper extremity. IV site is clean General: Alert, Oriented X3, Cooperative, No acute distress Heart: Regular rate Lungs: Clear Abdomen: Soft, No tenderness Extremities: No clubbing, No edema, No tenderness/swelling Skin: No rashes, No breakdown, Other (Pt with right great toe DFU wound. Following cast removal purulent drainage present from wound bed. Wound cx obtained. No surrounding erythema or edema present. Eccymosis present surrounding wound bed extending 0.8cm. Predebridement measurements 0.4x0.6x0.3. Undermining present from 12-12, with max depth of 0.8cm.) Labs LABS Laboratory Tests Test 01/16/18 16:47 01/16/18 21:09 01/17/18 05:15 01/17/18 07:36 Glucose (Fingerstick) 133 mg/dL (70-99) 133 mg/dL (70-99) 81 mg/dL (70-99) White Blood Count 9.1 x10^3/uL (4.0-11.0) Red Blood Count 3.03 x10^6/uL (4.30-5.70) Hemoglobin 10.4 g/dL (13.0-17.5) Hematocrit 29.6 % (39.0-53.0) Mean Corpuscular Volume 98 fL (79-100) Mean Corpuscular Hemoglobin 34 pg (25-35) Mean Corpuscular Hemoglobin Concent 35 g/dL (31-37) Red Cell Distribution Width 13.5 % (11.5-14.5) Platelet Count 110 x10^3/uL (140-400) Neutrophils (%) (Auto) 70 % (31-73) Lymphocytes (%) (Auto) 18 % (24-48) Monocytes (%) (Auto) 8 % (0-9) Eosinophils (%) (Auto) 3 % (0-3) Basophils (%) (Auto) 1 % (0-3) Neutrophils # (Auto) 6.4 x10^3uL (1.8-7.7) Lymphocytes # (Auto) 1.6 x10^3/uL (1.0-4.8) Monocytes # (Auto) 0.7 x10^3/uL (0.0-1.1) Eosinophils # (Auto) 0.3 x10^3/uL (0.0-0.7) Basophils # (Auto) 0.1 x10^3/uL (0.0-0.2) Sodium Level 140 mmol/L (136-145) Potassium Level 3.7 mmol/L (3.5-5.1) Chloride Level 99 mmol/L (98-107) Carbon Dioxide Level 27 mmol/L (21-32) Anion Gap 14 (6-14) Blood Urea Nitrogen 67 mg/dL (8-26) Creatinine 7.3 mg/dL (0.7-1.3) Estimated GFR (Cockcroft-Gault) 7.4 Glucose Level 82 mg/dL (70-99) Calcium Level 7.5 mg/dL (8.5-10.1) Phosphorus Level 4.1 mg/dL (2.6-4.7) Albumin 3.0 g/dL (3.4-5.0) Assessment and Plan Assessmemt and Plan Problems Medical Problems: (1) Pneumonia Status: Acute Comment Review of Relevant I have reviewed the following items jennifer (where applicable) has been applied. Labs Laboratory Tests Test 01/15/18 16:31 01/15/18 21:14 01/16/18 04:15 01/16/18 08:04 Glucose (Fingerstick) 186 mg/dL (70-99) 122 mg/dL (70-99) 112 mg/dL (70-99) White Blood Count 7.9 x10^3/uL (4.0-11.0) Red Blood Count 3.31 x10^6/uL (4.30-5.70) Hemoglobin 11.6 g/dL (13.0-17.5) Hematocrit 32.5 % (39.0-53.0) Mean Corpuscular Volume 98 fL (79-100) Mean Corpuscular Hemoglobin 35 pg (25-35) Mean Corpuscular Hemoglobin Concent 36 g/dL (31-37) Red Cell Distribution Width 13.4 % (11.5-14.5) Platelet Count 115 x10^3/uL (140-400) Neutrophils (%) (Auto) 68 % (31-73) Lymphocytes (%) (Auto) 19 % (24-48) Monocytes (%) (Auto) 9 % (0-9) Eosinophils (%) (Auto) 3 % (0-3) Basophils (%) (Auto) 1 % (0-3) Neutrophils # (Auto) 5.4 x10^3uL (1.8-7.7) Lymphocytes # (Auto) 1.5 x10^3/uL (1.0-4.8) Monocytes # (Auto) 0.7 x10^3/uL (0.0-1.1) Eosinophils # (Auto) 0.2 x10^3/uL (0.0-0.7) Basophils # (Auto) 0.1 x10^3/uL (0.0-0.2) Sodium Level 138 mmol/L (136-145) Potassium Level 3.6 mmol/L (3.5-5.1) Chloride Level 100 mmol/L (98-107) Carbon Dioxide Level 29 mmol/L (21-32) Anion Gap 9 (6-14) Blood Urea Nitrogen 48 mg/dL (8-26) Creatinine 6.0 mg/dL (0.7-1.3) Estimated GFR (Cockcroft-Gault) 9.3 Glucose Level 99 mg/dL (70-99) Calcium Level 7.6 mg/dL (8.5-10.1) Phosphorus Level 3.3 mg/dL (2.6-4.7) Albumin 3.1 g/dL (3.4-5.0) Test 01/16/18 11:33 01/16/18 16:47 01/16/18 21:09 01/17/18 05:15 Glucose (Fingerstick) 128 mg/dL (70-99) 133 mg/dL (70-99) 133 mg/dL (70-99) White Blood Count 9.1 x10^3/uL (4.0-11.0) Red Blood Count 3.03 x10^6/uL (4.30-5.70) Hemoglobin 10.4 g/dL (13.0-17.5) Hematocrit 29.6 % (39.0-53.0) Mean Corpuscular Volume 98 fL (79-100) Mean Corpuscular Hemoglobin 34 pg (25-35) Mean Corpuscular Hemoglobin Concent 35 g/dL (31-37) Red Cell Distribution Width 13.5 % (11.5-14.5) Platelet Count 110 x10^3/uL (140-400) Neutrophils (%) (Auto) 70 % (31-73) Lymphocytes (%) (Auto) 18 % (24-48) Monocytes (%) (Auto) 8 % (0-9) Eosinophils (%) (Auto) 3 % (0-3) Basophils (%) (Auto) 1 % (0-3) Neutrophils # (Auto) 6.4 x10^3uL (1.8-7.7) Lymphocytes # (Auto) 1.6 x10^3/uL (1.0-4.8) Monocytes # (Auto) 0.7 x10^3/uL (0.0-1.1) Eosinophils # (Auto) 0.3 x10^3/uL (0.0-0.7) Basophils # (Auto) 0.1 x10^3/uL (0.0-0.2) Sodium Level 140 mmol/L (136-145) Potassium Level 3.7 mmol/L (3.5-5.1) Chloride Level 99 mmol/L (98-107) Carbon Dioxide Level 27 mmol/L (21-32) Anion Gap 14 (6-14) Blood Urea Nitrogen 67 mg/dL (8-26) Creatinine 7.3 mg/dL (0.7-1.3) Estimated GFR (Cockcroft-Gault) 7.4 Glucose Level 82 mg/dL (70-99) Calcium Level 7.5 mg/dL (8.5-10.1) Phosphorus Level 4.1 mg/dL (2.6-4.7) Albumin 3.0 g/dL (3.4-5.0) Test 01/17/18 07:36 Glucose (Fingerstick) 81 mg/dL (70-99) Laboratory Tests Test 01/16/18 16:47 01/16/18 21:09 01/17/18 05:15 01/17/18 07:36 Glucose (Fingerstick) 133 mg/dL (70-99) 133 mg/dL (70-99) 81 mg/dL (70-99) White Blood Count 9.1 x10^3/uL (4.0-11.0) Red Blood Count 3.03 x10^6/uL (4.30-5.70) Hemoglobin 10.4 g/dL (13.0-17.5) Hematocrit 29.6 % (39.0-53.0) Mean Corpuscular Volume 98 fL (79-100) Mean Corpuscular Hemoglobin 34 pg (25-35) Mean Corpuscular Hemoglobin Concent 35 g/dL (31-37) Red Cell Distribution Width 13.5 % (11.5-14.5) Platelet Count 110 x10^3/uL (140-400) Neutrophils (%) (Auto) 70 % (31-73) Lymphocytes (%) (Auto) 18 % (24-48) Monocytes (%) (Auto) 8 % (0-9) Eosinophils (%) (Auto) 3 % (0-3) Basophils (%) (Auto) 1 % (0-3) Neutrophils # (Auto) 6.4 x10^3uL (1.8-7.7) Lymphocytes # (Auto) 1.6 x10^3/uL (1.0-4.8) Monocytes # (Auto) 0.7 x10^3/uL (0.0-1.1) Eosinophils # (Auto) 0.3 x10^3/uL (0.0-0.7) Basophils # (Auto) 0.1 x10^3/uL (0.0-0.2) Sodium Level 140 mmol/L (136-145) Potassium Level 3.7 mmol/L (3.5-5.1) Chloride Level 99 mmol/L (98-107) Carbon Dioxide Level 27 mmol/L (21-32) Anion Gap 14 (6-14) Blood Urea Nitrogen 67 mg/dL (8-26) Creatinine 7.3 mg/dL (0.7-1.3) Estimated GFR (Cockcroft-Gault) 7.4 Glucose Level 82 mg/dL (70-99) Calcium Level 7.5 mg/dL (8.5-10.1) Phosphorus Level 4.1 mg/dL (2.6-4.7) Albumin 3.0 g/dL (3.4-5.0) Microbiology 01/13/18 Blood Culture - Preliminary, Resulted NO GROWTH AFTER 3 DAYS 01/14/18 Anaerobic/Aerobic Culture, Resulted Pending 01/14/18 Anaerobic Culture Result 1 (KATHERINE), Resulted Pending 01/14/18 Aerobic Culture, Resulted Pending 01/14/18 Aerobic Culture Result 1 (KATHERINE), Resulted Pending 01/14/18 Gram Stain - Final, Resulted 01/14/18 Gram Stain Result 1 (KATHERINE) - Final, Resulted 01/14/18 Gram Stain Result 2 (KATHERINE) - Final, Resulted 01/14/18 Gram Stain Result 3 (KATHERINE) - Final, Resulted Medications Current Medications Piperacillin Sod/ Tazobactam Sod (Zosyn Per Pharmacy) 1 each PRN DAILY PRN MC SEE COMMENTS; Start 01/12/18 at 19:15; Stop 01/13/18 at 11:24; Status DC Vancomycin HCl (Vanco Per Pharmacy) 1 each PRN DAILY PRN MC SEE COMMENTS Last administered on 01/15/18at 14:56; Start 01/12/18 at 19:15 Vancomycin HCl 2 gm/Sodium Chloride 500 ml @ 250 mls/hr 1X ONCE IV Last administered on 01/12/18at 20:08; Start 01/12/18 at 20:00; Stop 01/12/18 at 21:59; Status DC Piperacillin Sod/ Tazobactam Sod 2.25 gm/Sodium Chloride 50 ml @ 100 mls/hr 1X ONCE IV Last administered on 01/12/18at 19:31; Start 01/12/18 at 19:30; Stop 01/12/18 at 19:59; Status DC Ondansetron HCl (Zofran) 4 mg PRN Q8HRS PRN IV NAUSEA/VOMITING; Start 01/12/18 at 19:30; Stop 01/13/18 at 19:29; Status DC Piperacillin Sod/ Tazobactam Sod 2.25 gm/Sodium Chloride 50 ml @ 100 mls/hr Q6HRS IV Last administered on 01/13/18at 11:11; Start 01/13/18 at 00:00; Stop 01/13 at 11:24; Status DC Vancomycin HCl (Vancomycin Random Level) 1 each 1X ONCE MC ; Start 01/15/18 at 06:00; Stop 01/15/18 at 06:00; Status DC Acetaminophen (Tylenol) 650 mg PRN Q6HRS PRN PO FEVER; Start 01/13/18 at 08:45 Ondansetron HCl (Zofran) 4 mg PRN Q6HRS PRN IV NAUSEA/VOMITING; Start 01/13/18 at 08:45 Morphine Sulfate (Morphine Sulfate) 2 mg PRN Q2HR PRN IV MODERATE TO SEVERE PAIN; Start 01/13/18 at 08:45 Tramadol HCl (Ultram) 50 mg PRN Q6HRS PRN PO MILD TO MODERATE PAIN; Start at 08:45 Docusate Sodium (Colace) 100 mg PRN DAILY PRN PO CONSTIPATION; Start 01/13/18 at 08:45 Allopurinol (Zyloprim) 100 mg DAILY PO Last administered on 01/17/18 08:14; Start 01/13/18 at 09:00 Apixaban (Eliquis) 5 mg BID PO Last administered on 01/17/18 08:14; Start at 09:00 Atorvastatin Calcium (Lipitor) 20 mg HS PO Last administered on 01/16/18 21:49 ; Start 01/13/18 at 21:00 Carvedilol (Coreg) 6.25 mg BIDWMEALS PO Last administered on 01/16/18 17:14; Start 01/13/18 at 09:00 Cinacalcet (Sensipar) 60 mg DAILY PO Last administered on 01/17/18 08:13; Start 01/13/18 at 09:00 Ferrous Sulfate (Feosol) 325 mg TID PO Last administered on 01/17/18 08:14; Start 01/13/18 at 09:00 Furosemide (Lasix) 40 mg [id number] PO Last administered on 01/16/18 14:03; Start at 09:00 Sevelamer Carbonate (Renvela) 2,400 mg TIDWMEALS PO Last administered on 08:13; Start 01/13/18 at 09:00 Insulin Glargine (Lantus) 20 units QHS SQ Last administered on 01/16/18 21:53; Start 01/13/18 at 21:00 Atorvastatin Calcium (Lipitor) 5 mg QHS PO ; Start 01/13/18 at 21:00; Status Cancel Insulin Human Lispro (HumaLOG) 0-9 UNITS TIDWMEALS SQ Last administered on 17:40; Start 01/13/18 at 12:00 Dextrose (Dextrose 50%-Water Syringe) 12.5 gm PRN Q15MIN PRN IV SEE COMMENTS; Start 01/13/18 at 08:45 Piperacillin Sod/ Tazobactam Sod 2.25 gm/Sodium Chloride 50 ml @ 100 mls/hr Q8HRS IV Last administered on 01/17/18at 05:57; Start 01/13/18 at 14:00 Lactobacillus Rhamnosus (Culturelle) 1 cap BID PO Last administered on at 08:14; Start 01/13/18 at 21:00 Sodium Chloride 1,000 ml @ 1,000 mls/hr Q1H PRN IV hypotension; Start 01/13/18 at 12:00; Stop 01/13/18 at 17:59; Status DC Sodium Chloride 1,000 ml @ 400 mls/hr Q2H30M PRN IV PATENCY; Start 01/13/18 at 12:00; Stop 01/13/18 at 23:59; Status DC Info (PHARMACY MONITORING -- do not chart) 1 each PRN DAILY PRN MC SEE COMMENTS ; Start 01/13/18 at 15:30; Stop 01/15/18 at 14:53; Status DC Info (PHARMACY MONITORING -- do not chart) 1 each PRN DAILY PRN MC SEE COMMENTS ; Start 01/13/18 at 15:30; Status UNV Albuterol Sulfate (Ventolin Neb Soln) 2.5 mg PRN Q4HRS PRN NEB SHORTNESS OF BREATH; Start 01/13/18 at 16:45 Ascorbic Acid (Vitamin C) 500 mg DAILY PO Last administered on 01/17/18at 08:14; Start 01/14/18 at 09:30 Vitamin B Complex/ Vitamin C (Mindy-Maureen) 1 tab DAILY PO Last administered on 01/17/18at 08:14; Start 01/14/18 at 09:30 Info (Anti-Coagulation Monitoring By Pharmacy) 1 each PRN DAILY PRN MC SEE COMMENTS Last administered on 01/15/18at 14:54; Start 01/14/18 at 11:45 Vancomycin HCl 500 mg/Sodium Chloride 100 ml @ 100 mls/hr ONCE ONCE IV Last administered on 01/14/18at 16:32; Start 01/14/18 at 15:00; Stop 01/14/18 at 15:59; Status DC Vancomycin HCl 500 mg/Sodium Chloride 100 ml @ 100 mls/hr QMWF IV Last administered on 01/15/18at 17:11; Start 01/15/18 at 16:00 Sodium Chloride 1,000 ml @ 1,000 mls/hr Q1H PRN IV hypotension; Start 01/15/18 at 06:30; Stop 01/15/18 at 12:29; Status DC Diphenhydramine HCl (Benadryl) 25 mg 1X PRN PRN IV ITCHING; Start 01/15/18 at 06 :30; Stop 01/16/18 at 06:29; Status DC Diphenhydramine HCl (Benadryl) 25 mg 1X PRN PRN IV ITCHING; Start 01/15/18 at 06 :30; Stop 01/16/18 at 06:29; Status DC Sodium Chloride 1,000 ml @ 400 mls/hr Q2H30M PRN IV PATENCY; Start 01/15/18 at 06:30; Stop 01/15/18 at 18:29; Status DC Info (PHARMACY MONITORING -- do not chart) 1 each PRN DAILY PRN MC SEE COMMENTS ; Start 01/15/18 at 06:30 Sodium Chloride 1,000 ml @ 1,000 mls/hr Q1H PRN IV hypotension; Start 01/17/18 at 08:36; Stop 01/17/18 at 14:35 Albumin Human 200 ml @ 200 mls/hr 1X PRN PRN IV Hypotension; Start 01/17/18 at 08:45; Stop 01/17/18 at 14:44 Acetaminophen (Tylenol) 500 mg 1X PRN PRN PO MILD PAIN / TEMP; Start 01/17/18 at 08:45; Stop 01/18/18 at 08:44 Diphenhydramine HCl (Benadryl) 25 mg 1X PRN PRN IV ITCHING; Start 01/17/18 at 08 :45; Stop 01/18/18 at 08:44 Diphenhydramine HCl (Benadryl) 25 mg 1X PRN PRN IV ITCHING; Start 01/17/18 at 08 :45; Stop 01/18/18 at 08:44 Labetalol HCl (Normodyne Iv Push) 10 mg PRN Q1HR PRN IVP SBP > 180; Start at 08:45; Stop 01/18/18 at 08:44 Clonidine HCl (Catapres) 0.1 mg 1X PRN PRN PO SBP > 180; Start 01/17/18 at 08:45 ; Stop 01/18/18 at 08:44 Sodium Chloride 1,000 ml @ 400 mls/hr Q2H30M PRN IV PATENCY; Start 01/17/18 at 08:36; Stop 01/17/18 at 20:35 Info (PHARMACY MONITORING -- do not chart) 1 each PRN DAILY PRN MC SEE COMMENTS ; Start 01/17/18 at 08:45; Status UNV Info (PHARMACY MONITORING -- do not chart) 1 each PRN DAILY PRN MC SEE COMMENTS ; Start 01/17/18 at 08:45 Active Scripts Active Culturelle (Lactobacillus Rhamnosus Gg) 1 Each Cap.sprink 1 Cap PO BID Cefpodoxime Proxetil 100 Mg Tablet 200 Mg PO BID Allopurinol 100 Mg Tablet 100 Mg PO DAILY Novolog Flexpen (Insulin Aspart) 100 Unit/1 Ml Insuln.pen 0 Units SQ TIDWMEALS 30 Days Levemir Flextouch (Insulin Detemir) 100 Unit/1 Ml Insuln.pen 20 Units SQ QHS 30 Days Reported Renvela (Sevelamer Carbonate) 800 Mg Tablet 3 Tab PO TID Entresto 49 mg-51 mg Tablet (Sacubitril/Valsartan) 1 Each Tablet 1 Each PO Lasix (Furosemide) 40 Mg Tablet 40 Mg PO BID Sensipar (Cinacalcet Hcl) 30 Mg Tablet 60 Mg PO DAILY Eliquis (Apixaban) 5 Mg Tablet 5 Mg PO BID Ferrous Sulfate 325 Mg Tablet 1 Tab PO TID Coreg (Carvedilol) 6.25 Mg Tablet 1 Tab PO BID Atorvastatin Calcium 20 Mg Tablet 20 Mg PO HS Pravastatin Sodium 20 Mg Tablet 20 Mg PO DAILY Vitals/I & O Vital Sign - Last 24 Hours 01/16/18 01/16/18 01/16/18 01/16/18 12:21 14:37 17:14 19:00 Temp 97.9 97.5 97.9 97.5 Pulse 62 70 66 Resp 16 20 B/P (MAP) 119/65 (83) 119/65 150/85 (106) Pulse Ox 98 100 100 O2 Delivery Room Air Room Air 01/16/18 01/16/18 01/17/18 01/17/18 19:45 23:00 03:00 06:17 Temp 98.7 98.1 98.7 98.1 Pulse 63 62 Resp 18 20 B/P (MAP) 130/62 (84) 158/83 (108) Pulse Ox 98 95 O2 Delivery Room Air 01/17/18 08:03 O2 Delivery Room Air Intake and Output 01/16/18 01/16/18 01/17/18 15:00 23:00 07:00 Intake Total 50 ml 850 ml 480 ml Balance 50 ml 850 ml 480 ml ARIELLA ESQUIVEL MD Jan 17, 2018 12:22
[2018-01-17 13:40] VITALS: BP 136/63
[2018-01-17 15:00] VITALS: BP 126/73
[2018-01-17] MEDS: VANCOMYCIN PER PHARMACY MC PRN (15:09)
[2018-01-17] MEDS: VANCOMYCIN 500 MG in IV NORMAL SALINE 100ML 100 ML IV SCH (15:40)
[2018-01-17 19:59] VITALS: BP 124/70
[2018-01-17] MEDS: ATORVASTATIN CALCIUM 20 MG TABLET PO SCH (20:48)
[2018-01-17] MEDS: INSULIN GLARGINE 300 UNITS/3 ML INSULN.PEN. SQ SCH (20:58)
[2018-01-17 23:07] VITALS: BP 122/66
[2018-01-18 05:54] LABS: BASO # 0.1 x10^3/uL (0.0-0.2); BASO % 1 % (0-3); EOS # 0.3 x10^3/uL (0.0-0.7); EOS % 3 % (0-3); HEMATOCRIT 31.8 % (39.0-53.0); HEMOGLOBIN 11.4 g/dL (13.0-17.5); LYMPH # 1.9 x10^3/uL (1.0-4.8); LYMPH % 18 % (24-48); MEAN CORPUSCULAR HEMOGLOBIN 35 pg (25-35); MEAN CORPUSCULAR HGB CONC 36 g/dL (31-37); MEAN CORPUSCULAR VOLUME 98 fL (79-100); MONO # 0.8 x10^3/uL (0.0-1.1); MONO % 8 % (0-9); NEUT # 7.2 x10^3uL (1.8-7.7); NEUT % 71 % (31-73); PLATELET COUNT 129 x10^3/uL (140-400); RED BLOOD COUNT 3.25 x10^6/uL (4.30-5.70); RED CELL DISTRIBUTION WIDTH 13.5 % (11.5-14.5); WHITE BLOOD COUNT 10.2 x10^3/uL (4.0-11.0)
[2018-01-18] MEDS: PIPERACILLIN/TAZOBACTAM 2.25 GM in IV NORMAL SALINE 50ML 50 ML IV SCH (06:08)
[2018-01-18 06:16] LABS: ALBUMIN 3.1 g/dL (3.4-5.0); CALCIUM 7.7 mg/dL (8.5-10.1); CREATININE 5.4 mg/dL (0.7-1.3); GFR 10.5; PHOSPHORUS 4.2 mg/dL (2.6-4.7); POTASSIUM 3.7 mmol/L (3.5-5.1)
[2018-01-18 07:45] VITALS: BP 147/69
[2018-01-18] MEDS: INSULIN LISPRO 300 UNITS/3 ML INSULN.PEN. SQ SCH ×3 (07:49→17:00)
--- NOTE | 2018-01-18 07:57 | PDOC ---
Infectious Disease Note Subjective Subjective Better today. Back to baseline and is hoping to go home soon No F/C/S/N/V/SOA/Rash or gross pain ROS ROS o/w neg Vital Sign Vital Signs Vital Signs Date Time Temp Pulse Resp B/P (MAP) Pulse Ox O2 Delivery O2 Flow Rate FiO2 01/18/18 07:45 98.1 67 16 147/69 (95) 94 Room Air 98.1 Physical Exam PHYSICAL EXAM CONSTITUTIONAL: He is in HD He is cooperative. He is in no acute distress. Looks better. stands without complications HEENT: Pupils are equal and reactive. Oral cavity, pharynx is clear, with some questionable dentition. NECK: Supple, no JVD. LUNGS: Clear to auscultation bilaterally. HEART: S1, S2. ABDOMEN: Obese, soft, nontender and nondistended. EXTREMITIES: No clubbing or cyanosis. Right lower extremity cast has been removed an rooke boot in place - wound is clean no signs cellulitis. His left upper extremity has AV fistula, without signs of any complications. NEUROLOGIC: He is alert and oriented. He has no focal defects appreciated. SKIN: Warm to touch, without signs of generalized rash, but he does have some scabbing on his right upper extremity. IV site is clean Labs Lab Laboratory Tests Test 01/17/18 13:26 01/17/18 16:21 01/17/18 20:53 01/17/18 21:24 Glucose (Fingerstick) 86 mg/dL (70-99) 150 mg/dL (70-99) 187 mg/dL (70-99) 190 mg/dL (70-99) Test 01/18/18 05:20 01/18/18 07:24 White Blood Count 10.2 x10^3/uL (4.0-11.0) Red Blood Count 3.25 x10^6/uL (4.30-5.70) Hemoglobin 11.4 g/dL (13.0-17.5) Hematocrit 31.8 % (39.0-53.0) Mean Corpuscular Volume 98 fL (79-100) Mean Corpuscular Hemoglobin 35 pg (25-35) Mean Corpuscular Hemoglobin Concent 36 g/dL (31-37) Red Cell Distribution Width 13.5 % (11.5-14.5) Platelet Count 129 x10^3/uL (140-400) Neutrophils (%) (Auto) 71 % (31-73) Lymphocytes (%) (Auto) 18 % (24-48) Monocytes (%) (Auto) 8 % (0-9) Eosinophils (%) (Auto) 3 % (0-3) Basophils (%) (Auto) 1 % (0-3) Neutrophils # (Auto) 7.2 x10^3uL (1.8-7.7) Lymphocytes # (Auto) 1.9 x10^3/uL (1.0-4.8) Monocytes # (Auto) 0.8 x10^3/uL (0.0-1.1) Eosinophils # (Auto) 0.3 x10^3/uL (0.0-0.7) Basophils # (Auto) 0.1 x10^3/uL (0.0-0.2) Sodium Level 141 mmol/L (136-145) Potassium Level 3.7 mmol/L (3.5-5.1) Chloride Level 100 mmol/L (98-107) Carbon Dioxide Level 29 mmol/L (21-32) Anion Gap 12 (6-14) Blood Urea Nitrogen 43 mg/dL (8-26) Creatinine 5.4 mg/dL (0.7-1.3) Estimated GFR (Cockcroft-Gault) 10.5 Glucose Level 104 mg/dL (70-99) Calcium Level 7.7 mg/dL (8.5-10.1) Phosphorus Level 4.2 mg/dL (2.6-4.7) Albumin 3.1 g/dL (3.4-5.0) Glucose (Fingerstick) 108 mg/dL (70-99) Micro roteus mirabilis BLD CULT RESULT 2 Preliminary Staphylococcus aureus ANTIMICROBIAL SUSCEPTIBILITY Preliminary Comment S = Susceptible; I = Intermediate; R = Resistant P = Positive; N = Negative MICS are expressed in micrograms per mL Antibiotic RSLT#1 RSLT#2 RSLT#3 RSLT#4 Amoxicillin/Clavulanic Acid S =4 Ampicillin S<=2 Cefepime S<=0.12 Ceftriaxone S<=0.25 Cefuroxime S<=1 Ciprofloxacin S<=0.25 Ertapenem S<=0.12 Gentamicin S<=1 Levofloxacin S<=0.12 Meropenem S =1 Nitrofurantoin R =128 Piperacillin/Tazobactam S<=4 Tetracycline R>=16 Tobramycin S<=1 Trimethoprim/Sulfa S<=20 Microbiology 01/12/18 Blood Culture - Final, Complete Objective Assessment Bacteremia 2/2 bottles 01/12 Proteus and now Staph aureus. Repeat cults 01/13 neg Leukocytosis - better CKD on HD M/W/F S/p cat scratches to R hand/arm - no gross cellulitis Toe wound on right - Wound care note reviewed. Cults obtained but it does not look infected N/V -better H/o Enterobacter sepsis December 2016 Plan Plan of Care Cont Vanc D/c zosyn - dose Rocephin ECHO F/u Staph sensitivities Cont probiotics F/u labs and cults VIRIDIANA ARANA MD Jan 18, 2018 07:57
[2018-01-18] MEDS ORDERED: cefTRIAXone SODIUM 2 GM in IV DEXTROSE 5% 100ML 100 ML IV SCH (08:00)
[2018-01-18] MEDS: ASCORBIC ACID 500 MG TABLET PO SCH (08:12)
[2018-01-18] MEDS: LACTOBACILLUS RHAMNOSUS GG 1 CAPSULE. PO SCH ×2 (08:12→20:50)
[2018-01-18] MEDS: APIXABAN 5 MG TABLET. PO SCH ×2 (08:12→20:50)
[2018-01-18] MEDS: FERROUS SULFATE 325 MG TABLET. PO SCH ×3 (08:12→20:50)
[2018-01-18] MEDS: SEVELAMER CARBONATE 800 MG TABLET. PO SCH ×3 (08:12→17:13)
[2018-01-18] MEDS: CINACALCET HCL 30 MG TABLET PO SCH (08:12)
[2018-01-18] MEDS: FUROSEMIDE 40 MG TABLET. PO SCH ×2 (08:13→13:54)
[2018-01-18] MEDS: ALLOPURINOL 100 MG TABLET. PO SCH (08:13)
[2018-01-18] MEDS: CARVEDILOL 6.25 MG TABLET. PO SCH ×2 (08:13→17:13)
[2018-01-18] MEDS: FOLIC/VIT B COMP W-C (RENAL) TABLET. PO SCH (08:13)
[2018-01-18] MEDS: cefTRIAXone IV Push 2 GM VIAL. IVP SCH (08:20)
--- NOTE | 2018-01-18 08:42 | PDOC ---
PULMONARY PROGRESS NOTES Subjective no soa, cough, or pain, no runny nose Vitals Vital Signs Date Time Temp Pulse Resp B/P (MAP) Pulse Ox O2 Delivery O2 Flow Rate FiO2 01/18/18 08:13 67 147/69 01/18/18 07:45 98.1 16 94 Room Air 98.1 ROS: No Nausea General: Alert, No acute distress HEENT: Other (nc at perrl) Lungs: Clear Cardiovascular: S1, S2 Abdomen: Soft, Non-tender Neuro Exam: Alert, Oriented Extremities: Other (right leg cast) Skin: Warm Labs Laboratory Tests Test 01/16/18 11:33 01/16/18 16:47 01/16/18 21:09 01/17/18 05:15 Glucose (Fingerstick) 128 mg/dL (70-99) 133 mg/dL (70-99) 133 mg/dL (70-99) White Blood Count 9.1 x10^3/uL (4.0-11.0) Red Blood Count 3.03 x10^6/uL (4.30-5.70) Hemoglobin 10.4 g/dL (13.0-17.5) Hematocrit 29.6 % (39.0-53.0) Mean Corpuscular Volume 98 fL (79-100) Mean Corpuscular Hemoglobin 34 pg (25-35) Mean Corpuscular Hemoglobin Concent 35 g/dL (31-37) Red Cell Distribution Width 13.5 % (11.5-14.5) Platelet Count 110 x10^3/uL (140-400) Neutrophils (%) (Auto) 70 % (31-73) Lymphocytes (%) (Auto) 18 % (24-48) Monocytes (%) (Auto) 8 % (0-9) Eosinophils (%) (Auto) 3 % (0-3) Basophils (%) (Auto) 1 % (0-3) Neutrophils # (Auto) 6.4 x10^3uL (1.8-7.7) Lymphocytes # (Auto) 1.6 x10^3/uL (1.0-4.8) Monocytes # (Auto) 0.7 x10^3/uL (0.0-1.1) Eosinophils # (Auto) 0.3 x10^3/uL (0.0-0.7) Basophils # (Auto) 0.1 x10^3/uL (0.0-0.2) Sodium Level 140 mmol/L (136-145) Potassium Level 3.7 mmol/L (3.5-5.1) Chloride Level 99 mmol/L (98-107) Carbon Dioxide Level 27 mmol/L (21-32) Anion Gap 14 (6-14) Blood Urea Nitrogen 67 mg/dL (8-26) Creatinine 7.3 mg/dL (0.7-1.3) Estimated GFR (Cockcroft-Gault) 7.4 Glucose Level 82 mg/dL (70-99) Calcium Level 7.5 mg/dL (8.5-10.1) Phosphorus Level 4.1 mg/dL (2.6-4.7) Albumin 3.0 g/dL (3.4-5.0) Test 01/17/18 07:36 01/17/18 13:26 01/17/18 16:21 01/17/18 20:53 Glucose (Fingerstick) 81 mg/dL (70-99) 86 mg/dL (70-99) 150 mg/dL (70-99) 187 mg/dL (70-99) Test 01/17/18 21:24 01/18/18 05:20 01/18/18 07:24 Glucose (Fingerstick) 190 mg/dL (70-99) 108 mg/dL (70-99) White Blood Count 10.2 x10^3/uL (4.0-11.0) Red Blood Count 3.25 x10^6/uL (4.30-5.70) Hemoglobin 11.4 g/dL (13.0-17.5) Hematocrit 31.8 % (39.0-53.0) Mean Corpuscular Volume 98 fL (79-100) Mean Corpuscular Hemoglobin 35 pg (25-35) Mean Corpuscular Hemoglobin Concent 36 g/dL (31-37) Red Cell Distribution Width 13.5 % (11.5-14.5) Platelet Count 129 x10^3/uL (140-400) Neutrophils (%) (Auto) 71 % (31-73) Lymphocytes (%) (Auto) 18 % (24-48) Monocytes (%) (Auto) 8 % (0-9) Eosinophils (%) (Auto) 3 % (0-3) Basophils (%) (Auto) 1 % (0-3) Neutrophils # (Auto) 7.2 x10^3uL (1.8-7.7) Lymphocytes # (Auto) 1.9 x10^3/uL (1.0-4.8) Monocytes # (Auto) 0.8 x10^3/uL (0.0-1.1) Eosinophils # (Auto) 0.3 x10^3/uL (0.0-0.7) Basophils # (Auto) 0.1 x10^3/uL (0.0-0.2) Sodium Level 141 mmol/L (136-145) Potassium Level 3.7 mmol/L (3.5-5.1) Chloride Level 100 mmol/L (98-107) Carbon Dioxide Level 29 mmol/L (21-32) Anion Gap 12 (6-14) Blood Urea Nitrogen 43 mg/dL (8-26) Creatinine 5.4 mg/dL (0.7-1.3) Estimated GFR (Cockcroft-Gault) 10.5 Glucose Level 104 mg/dL (70-99) Calcium Level 7.7 mg/dL (8.5-10.1) Phosphorus Level 4.2 mg/dL (2.6-4.7) Albumin 3.1 g/dL (3.4-5.0) Laboratory Tests Test 01/17/18 13:26 01/17/18 16:21 01/17/18 20:53 01/17/18 21:24 Glucose (Fingerstick) 86 mg/dL (70-99) 150 mg/dL (70-99) 187 mg/dL (70-99) 190 mg/dL (70-99) Test 01/18/18 05:20 01/18/18 07:24 White Blood Count 10.2 x10^3/uL (4.0-11.0) Red Blood Count 3.25 x10^6/uL (4.30-5.70) Hemoglobin 11.4 g/dL (13.0-17.5) Hematocrit 31.8 % (39.0-53.0) Mean Corpuscular Volume 98 fL (79-100) Mean Corpuscular Hemoglobin 35 pg (25-35) Mean Corpuscular Hemoglobin Concent 36 g/dL (31-37) Red Cell Distribution Width 13.5 % (11.5-14.5) Platelet Count 129 x10^3/uL (140-400) Neutrophils (%) (Auto) 71 % (31-73) Lymphocytes (%) (Auto) 18 % (24-48) Monocytes (%) (Auto) 8 % (0-9) Eosinophils (%) (Auto) 3 % (0-3) Basophils (%) (Auto) 1 % (0-3) Neutrophils # (Auto) 7.2 x10^3uL (1.8-7.7) Lymphocytes # (Auto) 1.9 x10^3/uL (1.0-4.8) Monocytes # (Auto) 0.8 x10^3/uL (0.0-1.1) Eosinophils # (Auto) 0.3 x10^3/uL (0.0-0.7) Basophils # (Auto) 0.1 x10^3/uL (0.0-0.2) Sodium Level 141 mmol/L (136-145) Potassium Level 3.7 mmol/L (3.5-5.1) Chloride Level 100 mmol/L (98-107) Carbon Dioxide Level 29 mmol/L (21-32) Anion Gap 12 (6-14) Blood Urea Nitrogen 43 mg/dL (8-26) Creatinine 5.4 mg/dL (0.7-1.3) Estimated GFR (Cockcroft-Gault) 10.5 Glucose Level 104 mg/dL (70-99) Calcium Level 7.7 mg/dL (8.5-10.1) Phosphorus Level 4.2 mg/dL (2.6-4.7) Albumin 3.1 g/dL (3.4-5.0) Glucose (Fingerstick) 108 mg/dL (70-99) Medications Active Scripts Medications Dose Route/Sig Max Daily Dose Days Date Category Culturelle (Lactobacillus Rhamnosus Gg) 1 Each Cap.sprink 1 Cap PO BID 06/06/17 Rx Cefpodoxime Proxetil 100 Mg Tablet 200 Mg PO BID 06/06/17 Rx Allopurinol 100 Mg Tablet 100 Mg PO DAILY 06/06/17 Rx Renvela (Sevelamer Carbonate) 800 Mg Tablet 3 Tab PO TID 06/03/17 Reported Entresto 49 mg-51 mg Tablet (Sacubitril/Valsartan) 1 Each Tablet 1 Each PO 06/03/17 Reported Lasix (Furosemide) 40 Mg Tablet 40 Mg PO BID 06/03/17 Reported Sensipar (Cinacalcet Hcl) 30 Mg Tablet 60 Mg PO DAILY 06/03/17 Reported Eliquis (Apixaban) 5 Mg Tablet 5 Mg PO BID 06/03/17 Reported Ferrous Sulfate 325 Mg Tablet 1 Tab PO TID 06/03/17 Reported Coreg (Carvedilol) 6.25 Mg Tablet 1 Tab PO BID 06/03/17 Reported Atorvastatin Calcium 20 Mg Tablet 20 Mg PO HS 06/03/17 Reported Novolog Flexpen (Insulin Aspart) 100 Unit/1 Ml Insuln.pen 0 Units SQ TIDWMEALS 30 01/12/17 Rx Levemir Flextouch (Insulin Detemir) 100 Unit/1 Ml Insuln.pen 20 Units SQ QHS 30 01/12/17 Rx Pravastatin Sodium 20 Mg Tablet 20 Mg PO DAILY 06/26/13 Reported Impression . 1. Abnormal CT chest revealing mild airspace disease LLL with suspected pneumonia. 2. A 4 mm left lingular pulmonary nodule. 3. Tobacco dependence, in remission, quit in 1979. 4. Bacteremia /2 bottles 01/12 GNR and now ? GPC 5. Possible sepsis. 7. End-stage renal disease. 8. Chronic toe wound on the right. 9. History of Enterobacter sepsis. 10. Cardiomyopathy with ejection fraction of 35%. 11. Prior history of cerebrovascular accident. 12. History of gout, diabetes and hypertension. Plan . 1. cont abx , 2. Repeat CT chest in 6 months. reg 4 mm lingular nodule 3. Follow Infectious Diseases recommendation. 4. P.r.n. nebulized treatments. 5. Deep venous thrombosis and gastrointestinal prophylaxis. 6. increase activity discussed w pt QUE BEST MD Jan 18, 2018 08:42
--- NOTE | 2018-01-18 10:24 | PDOC ---
Renal-Progress Notes Subjective Notes Notes NONE History of Present Illness Hx of present illness STABLE Vitals Vitals Vital Signs Date Time Temp Pulse Resp B/P (MAP) Pulse Ox O2 Delivery O2 Flow Rate FiO2 01/18/18 08:13 67 147/69 01/18/18 08:00 Room Air 01/18/18 07:45 98.1 16 94 98.1 Weight Weight [ ] I.O. Intake and Output Intake and Output 01/18/18 07:00 Intake Total 1450 ml Balance 1450 ml Intake Oral 1200 ml IV Total 250 ml # Voids 5 Labs Labs Laboratory Tests Test 01/17/18 13:26 01/17/18 16:21 01/17/18 20:53 01/17/18 21:24 Glucose (Fingerstick) 86 mg/dL (70-99) 150 mg/dL (70-99) 187 mg/dL (70-99) 190 mg/dL (70-99) Test 01/18/18 05:20 01/18/18 07:24 White Blood Count 10.2 x10^3/uL (4.0-11.0) Red Blood Count 3.25 x10^6/uL (4.30-5.70) Hemoglobin 11.4 g/dL (13.0-17.5) Hematocrit 31.8 % (39.0-53.0) Mean Corpuscular Volume 98 fL (79-100) Mean Corpuscular Hemoglobin 35 pg (25-35) Mean Corpuscular Hemoglobin Concent 36 g/dL (31-37) Red Cell Distribution Width 13.5 % (11.5-14.5) Platelet Count 129 x10^3/uL (140-400) Neutrophils (%) (Auto) 71 % (31-73) Lymphocytes (%) (Auto) 18 % (24-48) Monocytes (%) (Auto) 8 % (0-9) Eosinophils (%) (Auto) 3 % (0-3) Basophils (%) (Auto) 1 % (0-3) Neutrophils # (Auto) 7.2 x10^3uL (1.8-7.7) Lymphocytes # (Auto) 1.9 x10^3/uL (1.0-4.8) Monocytes # (Auto) 0.8 x10^3/uL (0.0-1.1) Eosinophils # (Auto) 0.3 x10^3/uL (0.0-0.7) Basophils # (Auto) 0.1 x10^3/uL (0.0-0.2) Sodium Level 141 mmol/L (136-145) Potassium Level 3.7 mmol/L (3.5-5.1) Chloride Level 100 mmol/L (98-107) Carbon Dioxide Level 29 mmol/L (21-32) Anion Gap 12 (6-14) Blood Urea Nitrogen 43 mg/dL (8-26) Creatinine 5.4 mg/dL (0.7-1.3) Estimated GFR (Cockcroft-Gault) 10.5 Glucose Level 104 mg/dL (70-99) Calcium Level 7.7 mg/dL (8.5-10.1) Phosphorus Level 4.2 mg/dL (2.6-4.7) Albumin 3.1 g/dL (3.4-5.0) Glucose (Fingerstick) 108 mg/dL (70-99) Micro Micro Microbiology 01/13/18 Blood Culture - Preliminary, Resulted NO GROWTH AFTER 4 DAYS 01/14/18 Anaerobic/Aerobic Culture - Preliminary, Resulted 01/14/18 Anaerobic Culture Result 1 (KATHERINE) - Preliminary, Resulted 01/14/18 Aerobic Culture - Preliminary, Resulted 01/14/18 Aerobic Culture Result 1 (KATHERINE) - Preliminary, Resulted 01/14/18 Aerobic Culture Result 2 (KATHERINE) - Preliminary, Resulted 01/14/18 Aerobic Culture Result 3 (KATHERINE) - Preliminary, Resulted 01/14/18 Aerobic Culture Result 4 (KATHERINE) - Preliminary, Resulted 01/14/18 Gram Stain - Final, Resulted 01/14/18 Gram Stain Result 1 (KATHERINE) - Final, Resulted 01/14/18 Gram Stain Result 2 (KATHERINE) - Final, Resulted 01/14/18 Gram Stain Result 3 (KATHERINE) - Final, Resulted Review of Systems Constitutional: yes: alert, oriented Ears/Nose/Throat: Yes: no symptom reported Eyes: Yes: no symptom reported Pulmonary: Yes no symptom reported Cardiovascular: Yes no symptom reported Gastrointestional: Yes: no symptom reported Musculoskeletal: Yes: no symptom reported Skin: Yes no symptom reported Psychiatric/Neurological: Yes: no symptom reported Endocrine: Yes: no symptom reported Physical Exam General Appearance: no apparent distress Respiratory: bilateral CTA Heart: S1S2 Abdomen: soft, bowel sounds present Genitourinary: bladder flat Extremities: pulses present Neurology: alert, oriented Assessment Assessment IMP ESRD ANEMIA ?SEPSIS PLAN HD SATURDAY ANTIBIOTICS WILL FOLLOW SIGIFREDO CLARK MD Jan 18, 2018 10:24
[2018-01-18] MEDS: VANCOMYCIN PER PHARMACY MC PRN ×2 (10:32→10:34)
[2018-01-18] MEDS: ANTI-COAG MONITOR BY PHARMACY. MC PRN (10:37)
[2018-01-18 11:00] VITALS: BP 122/68
--- NOTE | 2018-01-18 13:23 | PDOC ---
PROGRESS NOTES Chief Complaint Chief Complaint N/V, diarrhea fever 2/2 bacteremia doubt PNA? htn dm2 ESRD on HD mwf pafib on eliquis h/o left kidney Ca s/p nephrectomy CT showed 4mm lung nodule sepsis rt big toe chronic wound s/p i and d 01/14 Mild left lung base airspace opacities likely atelectasis or infiltrate. plan: renal, ID following cont home meds, on lasix bid lantus 20u qhs, ssi cont HD Cont Vanc, zosyn dced as per ID, since pseudomonas on wound cx, may need back , defer to ID wound care doc consult, did i and d 01/14 , not look infected , but + wound cx cont eliquis dvt ppx PTOT fu bcx, 01/12 + ,neg 01/13. asked pt to fu with pcp for small lung nodule SNF for snf History of Present Illness History of Present Illness ROS: no fever, chills, sob or chest pain feels ok ,wants to go home wound cx + pseudomonas, MSSA, PROteus + bcx staph aureus, proteus no cough ever Vitals Vitals Vital Signs Date Time Temp Pulse Resp B/P (MAP) Pulse Ox O2 Delivery O2 Flow Rate FiO2 01/18/18 11:00 97.3 50 16 122/68 (86) 98 Room Air 97.3 Physical Exam Physical Exam CONSTITUTIONAL: He is in HD He is cooperative. He is in no acute distress. Looks better. stands without complications HEENT: Pupils are equal and reactive. Oral cavity, pharynx is clear, with some questionable dentition. NECK: Supple, no JVD. LUNGS: Clear to auscultation bilaterally. HEART: S1, S2. ABDOMEN: Obese, soft, nontender and nondistended. EXTREMITIES: No clubbing or cyanosis. Right lower extremity cast has been removed an rooke boot in place - wound is clean no signs cellulitis. His left upper extremity has AV fistula, without signs of any complications. NEUROLOGIC: He is alert and oriented. He has no focal defects appreciated. SKIN: Warm to touch, without signs of generalized rash, but he does have some scabbing on his right upper extremity. IV site is clean General: Alert, Oriented X3, Cooperative, No acute distress Heart: Regular rate Lungs: Clear Abdomen: Soft, No tenderness Extremities: No clubbing, No edema, No tenderness/swelling Skin: No rashes, No breakdown, Other (Pt with right great toe DFU wound. Following cast removal purulent drainage present from wound bed. Wound cx obtained. No surrounding erythema or edema present. Eccymosis present surrounding wound bed extending 0.8cm. Predebridement measurements 0.4x0.6x0.3. Undermining present from 12-12, with max depth of 0.8cm.) Labs LABS Laboratory Tests Test 01/17/18 13:26 01/17/18 16:21 01/17/18 20:53 01/17/18 21:24 Glucose (Fingerstick) 86 mg/dL (70-99) 150 mg/dL (70-99) 187 mg/dL (70-99) 190 mg/dL (70-99) Test 01/18/18 05:20 01/18/18 07:24 01/18/18 11:44 White Blood Count 10.2 x10^3/uL (4.0-11.0) Red Blood Count 3.25 x10^6/uL (4.30-5.70) Hemoglobin 11.4 g/dL (13.0-17.5) Hematocrit 31.8 % (39.0-53.0) Mean Corpuscular Volume 98 fL (79-100) Mean Corpuscular Hemoglobin 35 pg (25-35) Mean Corpuscular Hemoglobin Concent 36 g/dL (31-37) Red Cell Distribution Width 13.5 % (11.5-14.5) Platelet Count 129 x10^3/uL (140-400) Neutrophils (%) (Auto) 71 % (31-73) Lymphocytes (%) (Auto) 18 % (24-48) Monocytes (%) (Auto) 8 % (0-9) Eosinophils (%) (Auto) 3 % (0-3) Basophils (%) (Auto) 1 % (0-3) Neutrophils # (Auto) 7.2 x10^3uL (1.8-7.7) Lymphocytes # (Auto) 1.9 x10^3/uL (1.0-4.8) Monocytes # (Auto) 0.8 x10^3/uL (0.0-1.1) Eosinophils # (Auto) 0.3 x10^3/uL (0.0-0.7) Basophils # (Auto) 0.1 x10^3/uL (0.0-0.2) Sodium Level 141 mmol/L (136-145) Potassium Level 3.7 mmol/L (3.5-5.1) Chloride Level 100 mmol/L (98-107) Carbon Dioxide Level 29 mmol/L (21-32) Anion Gap 12 (6-14) Blood Urea Nitrogen 43 mg/dL (8-26) Creatinine 5.4 mg/dL (0.7-1.3) Estimated GFR (Cockcroft-Gault) 10.5 Glucose Level 104 mg/dL (70-99) Calcium Level 7.7 mg/dL (8.5-10.1) Phosphorus Level 4.2 mg/dL (2.6-4.7) Albumin 3.1 g/dL (3.4-5.0) Glucose (Fingerstick) 108 mg/dL (70-99) 142 mg/dL (70-99) Assessment and Plan Assessmemt and Plan Problems Medical Problems: (1) Pneumonia Status: Acute Comment Review of Relevant I have reviewed the following items jennifer (where applicable) has been applied. Labs Laboratory Tests Test 01/16/18 16:47 01/16/18 21:09 01/17/18 05:15 01/17/18 07:36 Glucose (Fingerstick) 133 mg/dL (70-99) 133 mg/dL (70-99) 81 mg/dL (70-99) White Blood Count 9.1 x10^3/uL (4.0-11.0) Red Blood Count 3.03 x10^6/uL (4.30-5.70) Hemoglobin 10.4 g/dL (13.0-17.5) Hematocrit 29.6 % (39.0-53.0) Mean Corpuscular Volume 98 fL (79-100) Mean Corpuscular Hemoglobin 34 pg (25-35) Mean Corpuscular Hemoglobin Concent 35 g/dL (31-37) Red Cell Distribution Width 13.5 % (11.5-14.5) Platelet Count 110 x10^3/uL (140-400) Neutrophils (%) (Auto) 70 % (31-73) Lymphocytes (%) (Auto) 18 % (24-48) Monocytes (%) (Auto) 8 % (0-9) Eosinophils (%) (Auto) 3 % (0-3) Basophils (%) (Auto) 1 % (0-3) Neutrophils # (Auto) 6.4 x10^3uL (1.8-7.7) Lymphocytes # (Auto) 1.6 x10^3/uL (1.0-4.8) Monocytes # (Auto) 0.7 x10^3/uL (0.0-1.1) Eosinophils # (Auto) 0.3 x10^3/uL (0.0-0.7) Basophils # (Auto) 0.1 x10^3/uL (0.0-0.2) Sodium Level 140 mmol/L (136-145) Potassium Level 3.7 mmol/L (3.5-5.1) Chloride Level 99 mmol/L (98-107) Carbon Dioxide Level 27 mmol/L (21-32) Anion Gap 14 (6-14) Blood Urea Nitrogen 67 mg/dL (8-26) Creatinine 7.3 mg/dL (0.7-1.3) Estimated GFR (Cockcroft-Gault) 7.4 Glucose Level 82 mg/dL (70-99) Calcium Level 7.5 mg/dL (8.5-10.1) Phosphorus Level 4.1 mg/dL (2.6-4.7) Albumin 3.0 g/dL (3.4-5.0) Test 01/17/18 13:26 01/17/18 16:21 01/17/18 20:53 01/17/18 21:24 Glucose (Fingerstick) 86 mg/dL (70-99) 150 mg/dL (70-99) 187 mg/dL (70-99) 190 mg/dL (70-99) Test 01/18/18 05:20 01/18/18 07:24 01/18/18 11:44 White Blood Count 10.2 x10^3/uL (4.0-11.0) Red Blood Count 3.25 x10^6/uL (4.30-5.70) Hemoglobin 11.4 g/dL (13.0-17.5) Hematocrit 31.8 % (39.0-53.0) Mean Corpuscular Volume 98 fL (79-100) Mean Corpuscular Hemoglobin 35 pg (25-35) Mean Corpuscular Hemoglobin Concent 36 g/dL (31-37) Red Cell Distribution Width 13.5 % (11.5-14.5) Platelet Count 129 x10^3/uL (140-400) Neutrophils (%) (Auto) 71 % (31-73) Lymphocytes (%) (Auto) 18 % (24-48) Monocytes (%) (Auto) 8 % (0-9) Eosinophils (%) (Auto) 3 % (0-3) Basophils (%) (Auto) 1 % (0-3) Neutrophils # (Auto) 7.2 x10^3uL (1.8-7.7) Lymphocytes # (Auto) 1.9 x10^3/uL (1.0-4.8) Monocytes # (Auto) 0.8 x10^3/uL (0.0-1.1) Eosinophils # (Auto) 0.3 x10^3/uL (0.0-0.7) Basophils # (Auto) 0.1 x10^3/uL (0.0-0.2) Sodium Level 141 mmol/L (136-145) Potassium Level 3.7 mmol/L (3.5-5.1) Chloride Level 100 mmol/L (98-107) Carbon Dioxide Level 29 mmol/L (21-32) Anion Gap 12 (6-14) Blood Urea Nitrogen 43 mg/dL (8-26) Creatinine 5.4 mg/dL (0.7-1.3) Estimated GFR (Cockcroft-Gault) 10.5 Glucose Level 104 mg/dL (70-99) Calcium Level 7.7 mg/dL (8.5-10.1) Phosphorus Level 4.2 mg/dL (2.6-4.7) Albumin 3.1 g/dL (3.4-5.0) Glucose (Fingerstick) 108 mg/dL (70-99) 142 mg/dL (70-99) Laboratory Tests Test 01/17/18 13:26 01/17/18 16:21 01/17/18 20:53 01/17/18 21:24 Glucose (Fingerstick) 86 mg/dL (70-99) 150 mg/dL (70-99) 187 mg/dL (70-99) 190 mg/dL (70-99) Test 01/18/18 05:20 01/18/18 07:24 01/18/18 11:44 White Blood Count 10.2 x10^3/uL (4.0-11.0) Red Blood Count 3.25 x10^6/uL (4.30-5.70) Hemoglobin 11.4 g/dL (13.0-17.5) Hematocrit 31.8 % (39.0-53.0) Mean Corpuscular Volume 98 fL (79-100) Mean Corpuscular Hemoglobin 35 pg (25-35) Mean Corpuscular Hemoglobin Concent 36 g/dL (31-37) Red Cell Distribution Width 13.5 % (11.5-14.5) Platelet Count 129 x10^3/uL (140-400) Neutrophils (%) (Auto) 71 % (31-73) Lymphocytes (%) (Auto) 18 % (24-48) Monocytes (%) (Auto) 8 % (0-9) Eosinophils (%) (Auto) 3 % (0-3) Basophils (%) (Auto) 1 % (0-3) Neutrophils # (Auto) 7.2 x10^3uL (1.8-7.7) Lymphocytes # (Auto) 1.9 x10^3/uL (1.0-4.8) Monocytes # (Auto) 0.8 x10^3/uL (0.0-1.1) Eosinophils # (Auto) 0.3 x10^3/uL (0.0-0.7) Basophils # (Auto) 0.1 x10^3/uL (0.0-0.2) Sodium Level 141 mmol/L (136-145) Potassium Level 3.7 mmol/L (3.5-5.1) Chloride Level 100 mmol/L (98-107) Carbon Dioxide Level 29 mmol/L (21-32) Anion Gap 12 (6-14) Blood Urea Nitrogen 43 mg/dL (8-26) Creatinine 5.4 mg/dL (0.7-1.3) Estimated GFR (Cockcroft-Gault) 10.5 Glucose Level 104 mg/dL (70-99) Calcium Level 7.7 mg/dL (8.5-10.1) Phosphorus Level 4.2 mg/dL (2.6-4.7) Albumin 3.1 g/dL (3.4-5.0) Glucose (Fingerstick) 108 mg/dL (70-99) 142 mg/dL (70-99) Microbiology 01/13/18 Blood Culture - Preliminary, Resulted NO GROWTH AFTER 4 DAYS 01/14/18 Anaerobic/Aerobic Culture - Preliminary, Resulted 01/14/18 Anaerobic Culture Result 1 (KATHERINE) - Preliminary, Resulted 01/14/18 Aerobic Culture - Preliminary, Resulted 01/14/18 Aerobic Culture Result 1 (KATHERINE) - Preliminary, Resulted 01/14/18 Aerobic Culture Result 2 (KATHERINE) - Preliminary, Resulted 01/14/18 Aerobic Culture Result 3 (KATHERINE) - Preliminary, Resulted 01/14/18 Aerobic Culture Result 4 (KATHERINE) - Preliminary, Resulted 01/14/18 Antimicrobic Susceptibility - Preliminary, Resulted 01/14/18 Gram Stain - Final, Resulted 01/14/18 Gram Stain Result 1 (KATHERINE) - Final, Resulted 01/14/18 Gram Stain Result 2 (KATHERINE) - Final, Resulted 01/14/18 Gram Stain Result 3 (KATHERINE) - Final, Resulted Medications Current Medications Piperacillin Sod/ Tazobactam Sod (Zosyn Per Pharmacy) 1 each PRN DAILY PRN MC SEE COMMENTS; Start 01/12/18 at 19:15; Stop 01/13/18 at 11:24; Status DC Vancomycin HCl (Vanco Per Pharmacy) 1 each PRN DAILY PRN MC SEE COMMENTS Last administered on 01/18/18at 10:34; Start 01/12/18 at 19:15 Vancomycin HCl 2 gm/Sodium Chloride 500 ml @ 250 mls/hr 1X ONCE IV Last administered on 01/12/18at 20:08; Start 01/12/18 at 20:00; Stop 01/12/18 at 21:59; Status DC Piperacillin Sod/ Tazobactam Sod 2.25 gm/Sodium Chloride 50 ml @ 100 mls/hr 1X ONCE IV Last administered on 01/12/18at 19:31; Start 01/12/18 at 19:30; Stop 01/12/18 at 19:59; Status DC Ondansetron HCl (Zofran) 4 mg PRN Q8HRS PRN IV NAUSEA/VOMITING; Start 01/12/18 at 19:30; Stop 01/13/18 at 19:29; Status DC Piperacillin Sod/ Tazobactam Sod 2.25 gm/Sodium Chloride 50 ml @ 100 mls/hr Q6HRS IV Last administered on 01/13/18at 11:11; Start 01/13/18 at 00:00; Stop 01/13 at 11:24; Status DC Vancomycin HCl (Vancomycin Random Level) 1 each 1X ONCE MC ; Start 01/15/18 at 06:00; Stop 01/15/18 at 06:00; Status DC Acetaminophen (Tylenol) 650 mg PRN Q6HRS PRN PO FEVER; Start 01/13/18 at 08:45 Ondansetron HCl (Zofran) 4 mg PRN Q6HRS PRN IV NAUSEA/VOMITING; Start 01/13/18 at 08:45 Morphine Sulfate (Morphine Sulfate) 2 mg PRN Q2HR PRN IV MODERATE TO SEVERE PAIN; Start 01/13/18 at 08:45 Tramadol HCl (Ultram) 50 mg PRN Q6HRS PRN PO MILD TO MODERATE PAIN; Start at 08:45 Docusate Sodium (Colace) 100 mg PRN DAILY PRN PO CONSTIPATION Last administered on 01/18/18 08:12; Start 01/13/18 at 08:45 Allopurinol (Zyloprim) 100 mg DAILY PO Last administered on 01/18/18 08:13; Start 01/13/18 at 09:00 Apixaban (Eliquis) 5 mg BID PO Last administered on 01/18/18 08:12; Start at 09:00 Atorvastatin Calcium (Lipitor) 20 mg HS PO Last administered on 01/17/18at 20:48 ; Start 01/13/18 at 21:00 Carvedilol (Coreg) 6.25 mg BIDWMEALS PO Last administered on 01/18/18 08:13; Start 01/13/18 at 09:00 Cinacalcet (Sensipar) 60 mg DAILY PO Last administered on 01/18/18 08:12; Start 01/13/18 at 09:00 Ferrous Sulfate (Feosol) 325 mg TID PO Last administered on 01/18/18 08:12; Start 01/13/18 at 09:00 Furosemide (Lasix) 40 mg BID92 PO Last administered on 9/8/18at 08:13; Start at 09:00 Sevelamer Carbonate (Renvela) 2,400 mg TIDWMEALS PO Last administered on at 12:11; Start 01/13/18 at 09:00 Insulin Glargine (Lantus) 20 units QHS SQ Last administered on 01/17/18at 20:58; Start 01/13/18 at 21:00 Atorvastatin Calcium (Lipitor) 5 mg QHS PO ; Start 01/13/18 at 21:00; Status Cancel Insulin Human Lispro (HumaLOG) 0-9 UNITS TIDWMEALS SQ Last administered on at 17:40; Start 01/13/18 at 12:00 Dextrose (Dextrose 50%-Water Syringe) 12.5 gm PRN Q15MIN PRN IV SEE COMMENTS; Start 01/13/18 at 08:45 Piperacillin Sod/ Tazobactam Sod 2.25 gm/Sodium Chloride 50 ml @ 100 mls/hr Q8HRS IV Last administered on 01/18/18at 06:08; Start 01/13/18 at 14:00; Stop 01/18 at 07:58; Status DC Lactobacillus Rhamnosus (Culturelle) 1 cap BID PO Last administered on at 08:12; Start 01/13/18 at 21:00 Sodium Chloride 1,000 ml @ 1,000 mls/hr Q1H PRN IV hypotension; Start 01/13/18 at 12:00; Stop 01/13/18 at 17:59; Status DC Sodium Chloride 1,000 ml @ 400 mls/hr Q2H30M PRN IV PATENCY; Start 01/13/18 at 12:00; Stop 01/13/18 at 23:59; Status DC Info (PHARMACY MONITORING -- do not chart) 1 each PRN DAILY PRN MC SEE COMMENTS ; Start 01/13/18 at 15:30; Stop 01/15/18 at 14:53; Status DC Info (PHARMACY MONITORING -- do not chart) 1 each PRN DAILY PRN MC SEE COMMENTS ; Start 01/13/18 at 15:30; Status UNV Albuterol Sulfate (Ventolin Neb Soln) 2.5 mg PRN Q4HRS PRN NEB SHORTNESS OF BREATH; Start 01/13/18 at 16:45 Ascorbic Acid (Vitamin C) 500 mg DAILY PO Last administered on 01/18/18at 08:12; Start 01/14/18 at 09:30 Vitamin B Complex/ Vitamin C (Mindy-Maureen) 1 tab DAILY PO Last administered on 01/18/18at 08:13; Start 01/14/18 at 09:30 Info (Anti-Coagulation Monitoring By Pharmacy) 1 each PRN DAILY PRN MC SEE COMMENTS Last administered on 01/18/18at 10:37; Start 01/14/18 at 11:45 Vancomycin HCl 500 mg/Sodium Chloride 100 ml @ 100 mls/hr ONCE ONCE IV Last administered on 01/14/18at 16:32; Start 01/14/18 at 15:00; Stop 01/14/18 at 15:59; Status DC Vancomycin HCl 500 mg/Sodium Chloride 100 ml @ 100 mls/hr QMWF IV Last administered on 01/17/18at 15:40; Start 01/15/18 at 16:00 Sodium Chloride 1,000 ml @ 1,000 mls/hr Q1H PRN IV hypotension; Start 01/15/18 at 06:30; Stop 01/15/18 at 12:29; Status DC Diphenhydramine HCl (Benadryl) 25 mg 1X PRN PRN IV ITCHING; Start 01/15/18 at 06 :30; Stop 01/16/18 at 06:29; Status DC Diphenhydramine HCl (Benadryl) 25 mg 1X PRN PRN IV ITCHING; Start 01/15/18 at 06 :30; Stop 01/16/18 at 06:29; Status DC Sodium Chloride 1,000 ml @ 400 mls/hr Q2H30M PRN IV PATENCY; Start 01/15/18 at 06:30; Stop 01/15/18 at 18:29; Status DC Info (PHARMACY MONITORING -- do not chart) 1 each PRN DAILY PRN MC SEE COMMENTS ; Start 01/15/18 at 06:30; Stop 01/17/18 at 15:04; Status DC Sodium Chloride 1,000 ml @ 1,000 mls/hr Q1H PRN IV hypotension; Start 01/17/18 at 08:36; Stop 01/17/18 at 14:35; Status DC Albumin Human 200 ml @ 200 mls/hr 1X PRN PRN IV Hypotension; Start 01/17/18 at 08:45; Stop 01/17/18 at 14:44; Status DC Acetaminophen (Tylenol) 500 mg 1X PRN PRN PO MILD PAIN / TEMP; Start 01/17/18 at 08:45; Stop 01/18/18 at 08:44; Status DC Diphenhydramine HCl (Benadryl) 25 mg 1X PRN PRN IV ITCHING; Start 01/17/18 at 08 :45; Stop 01/18/18 at 08:44; Status DC Diphenhydramine HCl (Benadryl) 25 mg 1X PRN PRN IV ITCHING; Start 01/17/18 at 08 :45; Stop 01/18/18 at 08:44; Status DC Labetalol HCl (Normodyne Iv Push) 10 mg PRN Q1HR PRN IVP SBP > 180; Start at 08:45; Stop 01/18/18 at 08:44; Status DC Clonidine HCl (Catapres) 0.1 mg 1X PRN PRN PO SBP > 180; Start 01/17/18 at 08:45 ; Stop 01/18/18 at 08:44; Status DC Sodium Chloride 1,000 ml @ 400 mls/hr Q2H30M PRN IV PATENCY; Start 01/17/18 at 08:36; Stop 01/17/18 at 20:35; Status DC Info (PHARMACY MONITORING -- do not chart) 1 each PRN DAILY PRN MC SEE COMMENTS ; Start 01/17/18 at 08:45; Status UNV Info (PHARMACY MONITORING -- do not chart) 1 each PRN DAILY PRN MC SEE COMMENTS ; Start 01/17/18 at 08:45 Ceftriaxone Sodium 2 gm/ Dextrose 100 ml @ 200 mls/hr Q24H IV ; Start 01/18/18 at 08:00; Status UNV Ceftriaxone Sodium (Rocephin) 2 gm Q24H IVP Last administered on 01/18/18at 08:20 ; Start 01/18/18 at 09:00 Active Scripts Active Culturelle (Lactobacillus Rhamnosus Gg) 1 Each Cap.sprink 1 Cap PO BID Cefpodoxime Proxetil 100 Mg Tablet 200 Mg PO BID Allopurinol 100 Mg Tablet 100 Mg PO DAILY Novolog Flexpen (Insulin Aspart) 100 Unit/1 Ml Insuln.pen 0 Units SQ TIDWMEALS 30 Days Levemir Flextouch (Insulin Detemir) 100 Unit/1 Ml Insuln.pen 20 Units SQ QHS 30 Days Reported Renvela (Sevelamer Carbonate) 800 Mg Tablet 3 Tab PO TID Entresto 49 mg-51 mg Tablet (Sacubitril/Valsartan) 1 Each Tablet 1 Each PO Lasix (Furosemide) 40 Mg Tablet 40 Mg PO BID Sensipar (Cinacalcet Hcl) 30 Mg Tablet 60 Mg PO DAILY Eliquis (Apixaban) 5 Mg Tablet 5 Mg PO BID Ferrous Sulfate 325 Mg Tablet 1 Tab PO TID Coreg (Carvedilol) 6.25 Mg Tablet 1 Tab PO BID Atorvastatin Calcium 20 Mg Tablet 20 Mg PO HS Pravastatin Sodium 20 Mg Tablet 20 Mg PO DAILY Vitals/I & O Vital Sign - Last 24 Hours 01/17/18 01/17/18 01/17/18 01/17/18 13:40 15:00 16:44 19:59 Temp 97.5 97.7 98.5 97.5 97.7 98.5 Pulse 62 68 68 58 Resp 16 16 16 B/P (MAP) 136/63 (87) 126/73 (90) 126/73 124/70 (88) Pulse Ox 96 99 94 O2 Delivery Room Air Room Air Room Air 01/17/18 01/17/18 01/18/18 01/18/18 20:22 23:07 03:59 07:45 Temp 97.4 98.1 97.4 98.1 Pulse 49 67 Resp 18 16 B/P (MAP) 122/66 (84) 147/69 (95) Pulse Ox 99 94 O2 Delivery Room Air Room Air Room Air Room Air 01/18/18 01/18/18 01/18/18 08:00 08:13 11:00 Temp 97.3 97.3 Pulse 67 50 Resp 16 B/P (MAP) 147/69 122/68 (86) Pulse Ox 98 O2 Delivery Room Air Room Air Intake and Output 01/17/18 01/17/18 01/18/18 15:00 23:00 07:00 Intake Total 1280 ml 170 ml Balance 1280 ml 170 ml ARIELLA ESQUIVEL MD Jan 18, 2018 13:23
[2018-01-18 15:52] VITALS: BP 131/66
[2018-01-18 19:59] VITALS: BP 122/61
[2018-01-18] MEDS: ATORVASTATIN CALCIUM 20 MG TABLET PO SCH (20:50)
[2018-01-18] MEDS: INSULIN GLARGINE 300 UNITS/3 ML INSULN.PEN. SQ SCH (20:55)
[2018-01-18 23:28] VITALS: BP 124/69
[2018-01-19 05:31] LABS: BASO # 0.1 x10^3/uL (0.0-0.2); BASO % 1 % (0-3); EOS # 0.3 x10^3/uL (0.0-0.7); EOS % 3 % (0-3); HEMATOCRIT 30.2 % (39.0-53.0); HEMOGLOBIN 10.8 g/dL (13.0-17.5); LYMPH # 1.8 x10^3/uL (1.0-4.8); LYMPH % 16 % (24-48); MEAN CORPUSCULAR HEMOGLOBIN 35 pg (25-35); MEAN CORPUSCULAR HGB CONC 36 g/dL (31-37); MEAN CORPUSCULAR VOLUME 98 fL (79-100); MONO # 0.8 x10^3/uL (0.0-1.1); MONO % 7 % (0-9); NEUT # 8.4 x10^3uL (1.8-7.7); NEUT % 74 % (31-73); PLATELET COUNT 128 x10^3/uL (140-400); RED BLOOD COUNT 3.09 x10^6/uL (4.30-5.70); RED CELL DISTRIBUTION WIDTH 13.4 % (11.5-14.5); WHITE BLOOD COUNT 11.3 x10^3/uL (4.0-11.0)
[2018-01-19 06:07] LABS: ALBUMIN 3.1 g/dL (3.4-5.0); CALCIUM 7.5 mg/dL (8.5-10.1); CREATININE 6.9 mg/dL (0.7-1.3); GFR 7.9; PHOSPHORUS 4.7 mg/dL (2.6-4.7); POTASSIUM 3.6 mmol/L (3.5-5.1)
[2018-01-19 07:00] VITALS: BP 155/79
[2018-01-19] MEDS: INSULIN LISPRO 300 UNITS/3 ML INSULN.PEN. SQ SCH ×3 (08:00→16:58)
[2018-01-19 08:19] VITALS: BP 155/79
[2018-01-19] MEDS: cefTRIAXone IV Push 2 GM VIAL. IVP SCH (08:23)
[2018-01-19] MEDS: CINACALCET HCL 30 MG TABLET PO SCH (08:25)
[2018-01-19] MEDS: FERROUS SULFATE 325 MG TABLET. PO SCH ×3 (08:26→20:47)
[2018-01-19] MEDS: FUROSEMIDE 40 MG TABLET. PO SCH ×2 (08:26→13:32)
[2018-01-19] MEDS: APIXABAN 5 MG TABLET. PO SCH ×2 (08:26→20:47)
[2018-01-19] MEDS: FOLIC/VIT B COMP W-C (RENAL) TABLET. PO SCH (08:26)
[2018-01-19] MEDS: CARVEDILOL 6.25 MG TABLET. PO SCH ×2 (08:26→16:51)
[2018-01-19] MEDS: LACTOBACILLUS RHAMNOSUS GG 1 CAPSULE. PO SCH ×2 (08:26→20:47)
[2018-01-19] MEDS: ALLOPURINOL 100 MG TABLET. PO SCH (08:26)
[2018-01-19] MEDS: ASCORBIC ACID 500 MG TABLET PO SCH (08:26)
[2018-01-19] MEDS: SEVELAMER CARBONATE 800 MG TABLET. PO SCH ×3 (08:26→16:52)
--- NOTE | 2018-01-19 08:45 | PDOC ---
PULMONARY PROGRESS NOTES Subjective no sob, cough, or pain, no runny nose Vitals Vital Signs Date Time Temp Pulse Resp B/P (MAP) Pulse Ox O2 Delivery O2 Flow Rate FiO2 01/19/18 08:26 63 155/79 01/19/18 08:19 96.4 20 98 Room Air 96.4 ROS: No Nausea General: Alert, No acute distress HEENT: Other (nc at perrl) Lungs: Clear Cardiovascular: S1, S2 Abdomen: Soft, Non-tender Neuro Exam: Alert, Oriented Extremities: Other (right leg cast) Skin: Warm Labs Laboratory Tests Test 01/17/18 13:26 01/17/18 16:21 01/17/18 20:53 01/17/18 21:24 Glucose (Fingerstick) 86 mg/dL (70-99) 150 mg/dL (70-99) 187 mg/dL (70-99) 190 mg/dL (70-99) Test 01/18/18 05:20 01/18/18 07:24 01/18/18 11:44 01/18/18 16:19 White Blood Count 10.2 x10^3/uL (4.0-11.0) Red Blood Count 3.25 x10^6/uL (4.30-5.70) Hemoglobin 11.4 g/dL (13.0-17.5) Hematocrit 31.8 % (39.0-53.0) Mean Corpuscular Volume 98 fL (79-100) Mean Corpuscular Hemoglobin 35 pg (25-35) Mean Corpuscular Hemoglobin Concent 36 g/dL (31-37) Red Cell Distribution Width 13.5 % (11.5-14.5) Platelet Count 129 x10^3/uL (140-400) Neutrophils (%) (Auto) 71 % (31-73) Lymphocytes (%) (Auto) 18 % (24-48) Monocytes (%) (Auto) 8 % (0-9) Eosinophils (%) (Auto) 3 % (0-3) Basophils (%) (Auto) 1 % (0-3) Neutrophils # (Auto) 7.2 x10^3uL (1.8-7.7) Lymphocytes # (Auto) 1.9 x10^3/uL (1.0-4.8) Monocytes # (Auto) 0.8 x10^3/uL (0.0-1.1) Eosinophils # (Auto) 0.3 x10^3/uL (0.0-0.7) Basophils # (Auto) 0.1 x10^3/uL (0.0-0.2) Sodium Level 141 mmol/L (136-145) Potassium Level 3.7 mmol/L (3.5-5.1) Chloride Level 100 mmol/L (98-107) Carbon Dioxide Level 29 mmol/L (21-32) Anion Gap 12 (6-14) Blood Urea Nitrogen 43 mg/dL (8-26) Creatinine 5.4 mg/dL (0.7-1.3) Estimated GFR (Cockcroft-Gault) 10.5 Glucose Level 104 mg/dL (70-99) Calcium Level 7.7 mg/dL (8.5-10.1) Phosphorus Level 4.2 mg/dL (2.6-4.7) Albumin 3.1 g/dL (3.4-5.0) Glucose (Fingerstick) 108 mg/dL (70-99) 142 mg/dL (70-99) 133 mg/dL (70-99) Test 01/18/18 20:48 01/19/18 05:05 01/19/18 07:46 Glucose (Fingerstick) 153 mg/dL (70-99) 78 mg/dL (70-99) White Blood Count 11.3 x10^3/uL (4.0-11.0) Red Blood Count 3.09 x10^6/uL (4.30-5.70) Hemoglobin 10.8 g/dL (13.0-17.5) Hematocrit 30.2 % (39.0-53.0) Mean Corpuscular Volume 98 fL (79-100) Mean Corpuscular Hemoglobin 35 pg (25-35) Mean Corpuscular Hemoglobin Concent 36 g/dL (31-37) Red Cell Distribution Width 13.4 % (11.5-14.5) Platelet Count 128 x10^3/uL (140-400) Neutrophils (%) (Auto) 74 % (31-73) Lymphocytes (%) (Auto) 16 % (24-48) Monocytes (%) (Auto) 7 % (0-9) Eosinophils (%) (Auto) 3 % (0-3) Basophils (%) (Auto) 1 % (0-3) Neutrophils # (Auto) 8.4 x10^3uL (1.8-7.7) Lymphocytes # (Auto) 1.8 x10^3/uL (1.0-4.8) Monocytes # (Auto) 0.8 x10^3/uL (0.0-1.1) Eosinophils # (Auto) 0.3 x10^3/uL (0.0-0.7) Basophils # (Auto) 0.1 x10^3/uL (0.0-0.2) Sodium Level 140 mmol/L (136-145) Potassium Level 3.6 mmol/L (3.5-5.1) Chloride Level 100 mmol/L (98-107) Carbon Dioxide Level 27 mmol/L (21-32) Anion Gap 13 (6-14) Blood Urea Nitrogen 63 mg/dL (8-26) Creatinine 6.9 mg/dL (0.7-1.3) Estimated GFR (Cockcroft-Gault) 7.9 Glucose Level 77 mg/dL (70-99) Calcium Level 7.5 mg/dL (8.5-10.1) Phosphorus Level 4.7 mg/dL (2.6-4.7) Albumin 3.1 g/dL (3.4-5.0) Laboratory Tests Test 01/18/18 11:44 01/18/18 16:19 01/18/18 20:48 01/19/18 05:05 Glucose (Fingerstick) 142 mg/dL (70-99) 133 mg/dL (70-99) 153 mg/dL (70-99) White Blood Count 11.3 x10^3/uL (4.0-11.0) Red Blood Count 3.09 x10^6/uL (4.30-5.70) Hemoglobin 10.8 g/dL (13.0-17.5) Hematocrit 30.2 % (39.0-53.0) Mean Corpuscular Volume 98 fL (79-100) Mean Corpuscular Hemoglobin 35 pg (25-35) Mean Corpuscular Hemoglobin Concent 36 g/dL (31-37) Red Cell Distribution Width 13.4 % (11.5-14.5) Platelet Count 128 x10^3/uL (140-400) Neutrophils (%) (Auto) 74 % (31-73) Lymphocytes (%) (Auto) 16 % (24-48) Monocytes (%) (Auto) 7 % (0-9) Eosinophils (%) (Auto) 3 % (0-3) Basophils (%) (Auto) 1 % (0-3) Neutrophils # (Auto) 8.4 x10^3uL (1.8-7.7) Lymphocytes # (Auto) 1.8 x10^3/uL (1.0-4.8) Monocytes # (Auto) 0.8 x10^3/uL (0.0-1.1) Eosinophils # (Auto) 0.3 x10^3/uL (0.0-0.7) Basophils # (Auto) 0.1 x10^3/uL (0.0-0.2) Sodium Level 140 mmol/L (136-145) Potassium Level 3.6 mmol/L (3.5-5.1) Chloride Level 100 mmol/L (98-107) Carbon Dioxide Level 27 mmol/L (21-32) Anion Gap 13 (6-14) Blood Urea Nitrogen 63 mg/dL (8-26) Creatinine 6.9 mg/dL (0.7-1.3) Estimated GFR (Cockcroft-Gault) 7.9 Glucose Level 77 mg/dL (70-99) Calcium Level 7.5 mg/dL (8.5-10.1) Phosphorus Level 4.7 mg/dL (2.6-4.7) Albumin 3.1 g/dL (3.4-5.0) Test 01/19/18 07:46 Glucose (Fingerstick) 78 mg/dL (70-99) Medications Active Scripts Medications Dose Route/Sig Max Daily Dose Days Date Category Culturelle (Lactobacillus Rhamnosus Gg) 1 Each Cap.sprink 1 Cap PO BID 06/06/17 Rx Cefpodoxime Proxetil 100 Mg Tablet 200 Mg PO BID 06/06/17 Rx Allopurinol 100 Mg Tablet 100 Mg PO DAILY 06/06/17 Rx Renvela (Sevelamer Carbonate) 800 Mg Tablet 3 Tab PO TID 06/03/17 Reported Entresto 49 mg-51 mg Tablet (Sacubitril/Valsartan) 1 Each Tablet 1 Each PO 1/22/18 Reported Lasix (Furosemide) 40 Mg Tablet 40 Mg PO BID 06/03/17 Reported Sensipar (Cinacalcet Hcl) 30 Mg Tablet 60 Mg PO DAILY 06/03/17 Reported Eliquis (Apixaban) 5 Mg Tablet 5 Mg PO BID 06/03/17 Reported Ferrous Sulfate 325 Mg Tablet 1 Tab PO TID 06/03/17 Reported Coreg (Carvedilol) 6.25 Mg Tablet 1 Tab PO BID 06/03/17 Reported Atorvastatin Calcium 20 Mg Tablet 20 Mg PO HS 06/03/17 Reported Novolog Flexpen (Insulin Aspart) 100 Unit/1 Ml Insuln.pen 0 Units SQ TIDWMEALS 30 01/12/17 Rx Levemir Flextouch (Insulin Detemir) 100 Unit/1 Ml Insuln.pen 20 Units SQ QHS 30 01/12/17 Rx Pravastatin Sodium 20 Mg Tablet 20 Mg PO DAILY 06/26/13 Reported Impression . 1. Abnormal CT chest revealing mild airspace disease LLL with suspected pneumonia. 2. A 4 mm left lingular pulmonary nodule. 3. Tobacco dependence, in remission, quit in 1979. 4. Bacteremia 5. Possible sepsis. 7. End-stage renal disease. 8. Chronic toe wound on the right. 9. History of Enterobacter sepsis. 10. Cardiomyopathy with ejection fraction of 35%. 11. Prior history of cerebrovascular accident. 12. History of gout, diabetes and hypertension. Plan . 1. cont abx per id, 2. Repeat CT chest in 6 months. reg 4 mm lingular nodule 3. Follow Infectious Diseases recommendation. 4. P.r.n. nebulized treatments. 5. Deep venous thrombosis and gastrointestinal prophylaxis. 6. increase activity discussed w QUE Otero MD Jan 19, 2018 08:45
[2018-01-19 11:00] VITALS: BP 136/52
--- NOTE | 2018-01-19 11:00 | PDOC ---
Renal-Progress Notes Subjective Notes Notes NO NEW COMPLAINTS History of Present Illness Hx of present illness NO CHANGE Vitals Vitals Vital Signs Date Time Temp Pulse Resp B/P (MAP) Pulse Ox O2 Delivery O2 Flow Rate FiO2 01/19/18 08:26 63 155/79 01/19/18 08:19 96.4 20 98 Room Air 96.4 01/19/18 08:00 2.0 Weight Weight [ ] I.O. Intake and Output Intake and Output 01/19/18 07:00 Intake Total 600 ml Balance 600 ml Intake Oral 600 ml # Voids 4 Labs Labs Laboratory Tests Test 01/18/18 11:44 01/18/18 16:19 01/18/18 20:48 01/19/18 05:05 Glucose (Fingerstick) 142 mg/dL (70-99) 133 mg/dL (70-99) 153 mg/dL (70-99) White Blood Count 11.3 x10^3/uL (4.0-11.0) Red Blood Count 3.09 x10^6/uL (4.30-5.70) Hemoglobin 10.8 g/dL (13.0-17.5) Hematocrit 30.2 % (39.0-53.0) Mean Corpuscular Volume 98 fL (79-100) Mean Corpuscular Hemoglobin 35 pg (25-35) Mean Corpuscular Hemoglobin Concent 36 g/dL (31-37) Red Cell Distribution Width 13.4 % (11.5-14.5) Platelet Count 128 x10^3/uL (140-400) Neutrophils (%) (Auto) 74 % (31-73) Lymphocytes (%) (Auto) 16 % (24-48) Monocytes (%) (Auto) 7 % (0-9) Eosinophils (%) (Auto) 3 % (0-3) Basophils (%) (Auto) 1 % (0-3) Neutrophils # (Auto) 8.4 x10^3uL (1.8-7.7) Lymphocytes # (Auto) 1.8 x10^3/uL (1.0-4.8) Monocytes # (Auto) 0.8 x10^3/uL (0.0-1.1) Eosinophils # (Auto) 0.3 x10^3/uL (0.0-0.7) Basophils # (Auto) 0.1 x10^3/uL (0.0-0.2) Sodium Level 140 mmol/L (136-145) Potassium Level 3.6 mmol/L (3.5-5.1) Chloride Level 100 mmol/L (98-107) Carbon Dioxide Level 27 mmol/L (21-32) Anion Gap 13 (6-14) Blood Urea Nitrogen 63 mg/dL (8-26) Creatinine 6.9 mg/dL (0.7-1.3) Estimated GFR (Cockcroft-Gault) 7.9 Glucose Level 77 mg/dL (70-99) Calcium Level 7.5 mg/dL (8.5-10.1) Phosphorus Level 4.7 mg/dL (2.6-4.7) Albumin 3.1 g/dL (3.4-5.0) Test 01/19/18 07:46 Glucose (Fingerstick) 78 mg/dL (70-99) Micro Micro Microbiology 01/13/18 Blood Culture - Final, Complete NO GROWTH AFTER 5 DAYS 01/14/18 Anaerobic/Aerobic Culture - Preliminary, Resulted 01/14/18 Anaerobic Culture Result 1 (KATHERINE) - Preliminary, Resulted 01/14/18 Aerobic Culture - Preliminary, Resulted 01/14/18 Aerobic Culture Result 1 (KATHERINE) - Preliminary, Resulted 01/14/18 Aerobic Culture Result 2 (KATHERINE) - Preliminary, Resulted 01/14/18 Aerobic Culture Result 3 (KATHERINE) - Preliminary, Resulted 01/14/18 Aerobic Culture Result 4 (KATHERINE) - Preliminary, Resulted 01/14/18 Antimicrobic Susceptibility - Preliminary, Resulted 01/14/18 Gram Stain - Final, Resulted 01/14/18 Gram Stain Result 1 (KATHERINE) - Final, Resulted 01/14/18 Gram Stain Result 2 (KATHERINE) - Final, Resulted 01/14/18 Gram Stain Result 3 (KATHERINE) - Final, Resulted Review of Systems Constitutional: yes: alert, oriented Ears/Nose/Throat: Yes: no symptom reported Eyes: Yes: no symptom reported Pulmonary: Yes no symptom reported Cardiovascular: Yes no symptom reported Gastrointestional: Yes: no symptom reported Musculoskeletal: Yes: no symptom reported Skin: Yes no symptom reported Psychiatric/Neurological: Yes: no symptom reported Endocrine: Yes: no symptom reported Physical Exam General Appearance: no apparent distress Respiratory: bilateral CTA Heart: S1S2 Abdomen: soft, bowel sounds present Genitourinary: bladder flat Extremities: pulses present Neurology: alert, oriented Assessment Assessment IMP ESRD ANEMIA ?SEPSIS PLAN HD TOMORROW ANTIBIOTICS WILL FOLLOW SIGIFREDO CLARK MD Jan 19, 2018 11:00
[2018-01-19] MEDS: ANTI-COAG MONITOR BY PHARMACY. MC PRN (12:07)
[2018-01-19] MEDS: VANCOMYCIN PER PHARMACY MC PRN (12:11)
--- NOTE | 2018-01-19 12:30 | PDOC ---
Infectious Disease Note Subjective Subjective Comfortable, denies pain Hoping to go home soon No F/C/S/N/V/D ROS ROS per HPI otherwise negative Vital Sign Vital Signs Vital Signs Date Time Temp Pulse Resp B/P (MAP) Pulse Ox O2 Delivery O2 Flow Rate FiO2 01/19/18 11:00 97.5 54 20 136/52 (80) 96 Room Air 97.5 01/19/18 08:00 2.0 Physical Exam PHYSICAL EXAM GENERAL: Sitting on the side of the bed, Alert, smiling HEENT: Pupils are equal and reactive. Oral cavity, pharynx is clear, with some questionable dentition. NECK: Supple, no JVD. LUNGS: Clear to auscultation bilaterally. HEART: S1, S2. ABDOMEN: Obese, soft, nontender EXTREMITIES: No clubbing or cyanosis. Right lower extremity cast has been removed an Rooke boot in place - wound is clean no signs cellulitis. His left upper extremity has AV fistula, without signs of any complications. NEUROLOGIC: He is alert and oriented. He has no focal defects appreciated. SKIN: Warm to touch, without signs of generalized rash, but he does have some scabbing on his right upper extremity. PIV ok Labs Lab Laboratory Tests Test 01/18/18 16:19 01/18/18 20:48 01/19/18 05:05 01/19/18 07:46 Glucose (Fingerstick) 133 mg/dL (70-99) 153 mg/dL (70-99) 78 mg/dL (70-99) White Blood Count 11.3 x10^3/uL (4.0-11.0) Red Blood Count 3.09 x10^6/uL (4.30-5.70) Hemoglobin 10.8 g/dL (13.0-17.5) Hematocrit 30.2 % (39.0-53.0) Mean Corpuscular Volume 98 fL (79-100) Mean Corpuscular Hemoglobin 35 pg (25-35) Mean Corpuscular Hemoglobin Concent 36 g/dL (31-37) Red Cell Distribution Width 13.4 % (11.5-14.5) Platelet Count 128 x10^3/uL (140-400) Neutrophils (%) (Auto) 74 % (31-73) Lymphocytes (%) (Auto) 16 % (24-48) Monocytes (%) (Auto) 7 % (0-9) Eosinophils (%) (Auto) 3 % (0-3) Basophils (%) (Auto) 1 % (0-3) Neutrophils # (Auto) 8.4 x10^3uL (1.8-7.7) Lymphocytes # (Auto) 1.8 x10^3/uL (1.0-4.8) Monocytes # (Auto) 0.8 x10^3/uL (0.0-1.1) Eosinophils # (Auto) 0.3 x10^3/uL (0.0-0.7) Basophils # (Auto) 0.1 x10^3/uL (0.0-0.2) Sodium Level 140 mmol/L (136-145) Potassium Level 3.6 mmol/L (3.5-5.1) Chloride Level 100 mmol/L (98-107) Carbon Dioxide Level 27 mmol/L (21-32) Anion Gap 13 (6-14) Blood Urea Nitrogen 63 mg/dL (8-26) Creatinine 6.9 mg/dL (0.7-1.3) Estimated GFR (Cockcroft-Gault) 7.9 Glucose Level 77 mg/dL (70-99) Calcium Level 7.5 mg/dL (8.5-10.1) Phosphorus Level 4.7 mg/dL (2.6-4.7) Albumin 3.1 g/dL (3.4-5.0) Test 01/19/18 11:43 Glucose (Fingerstick) 131 mg/dL (70-99) Micro Microbiology 01/13/18 Blood Culture - Final, Complete NO GROWTH AFTER 5 DAYS 01/14/18 Anaerobic/Aerobic Culture - Preliminary, Resulted 01/14/18 Anaerobic Culture Result 1 (KATHERINE) - Preliminary, Resulted 01/14/18 Aerobic Culture - Preliminary, Resulted 01/14/18 Aerobic Culture Result 1 (KATHERINE) - Preliminary, Resulted 01/14/18 Aerobic Culture Result 2 (KATHERINE) - Preliminary, Resulted 01/14/18 Aerobic Culture Result 3 (KATHERINE) - Preliminary, Resulted 01/14/18 Aerobic Culture Result 4 (KATHERINE) - Preliminary, Resulted 01/14/18 Antimicrobic Susceptibility - Preliminary, Resulted 01/14/18 Gram Stain - Final, Resulted 01/14/18 Gram Stain Result 1 (KATHERINE) - Final, Resulted 01/14/18 Gram Stain Result 2 (KATHERINE) - Final, Resulted 01/14/18 Gram Stain Result 3 (KATHERINE) - Final, Resulted Objective Assessment MSSA and proteus bacteremia (2 of 2 bottles) from 01/12. Repeat BC 01/13 NGTD. echo pending Wound right toe with growth of MSSA, proteus, enterococcus and PSA (late growth ) from 01/14 Leukocytosis CKD on HD M/W/F S/p cat scratches to right hand/arm - no gross cellulitis N/V -better H/o Enterobacter sepsis December 2016 Plan Plan of Care Cont Vanc for now Change Rocephin to Cefepime, renal dosing for PSA coverage per Dr. Sher f/u final culture results ECHO pending Probiotics Supportive care Attending Co-Sign Attending Co-Sign The patient was seen and interviewed as well as examined at the bedside. The chart was reviewed. The case was discussed. Agree with the plan of care. VICK RIVERO APRN Jan 19, 2018 12:30 VIRIDIANA SHER MD Jan 19, 2018 14:58
[2018-01-19] MEDS ORDERED: CHOL200074 PO (13:06)
[2018-01-19] MEDS ORDERED: LOPE2TAB27 PO (13:06)
[2018-01-19] MEDS ORDERED: POTA20TA82 PO (13:06)
[2018-01-19] MEDS ORDERED: TAMS0.4C2 PO (13:06)
[2018-01-19] MEDS ORDERED: CALC500T30 PO (13:06)
[2018-01-19] MEDS ORDERED: METO-247 PO (13:06)
[2018-01-19] MEDS: CEFEPIME HCL IV Push 1 GM VIAL. IVP SCH (13:32)
--- NOTE | 2018-01-19 14:26 | PDOC ---
PROGRESS NOTES Chief Complaint Chief Complaint N/V, diarrhea fever 2/2 bacteremia doubt PNA? htn dm2 ESRD on HD mwf pafib on eliquis h/o left kidney Ca s/p nephrectomy CT showed 4mm lung nodule sepsis rt big toe chronic wound s/p i and d 01/14 Mild left lung base airspace opacities likely atelectasis or infiltrate. plan: renal, ID following cont home meds, on lasix bid lantus 20u qhs, ssi cont HD Cont Vanc, cefepime as per ID, talked to ID about the cx result wound care doc consult, did i and d 01/14 , not look infected , but + wound cx cont eliquis dvt ppx PTOT fu bcx, 01/12 + ,neg 01/13. asked pt to fu with pcp for small lung nodule SNF for snf History of Present Illness History of Present Illness ROS: no fever, chills, sob or chest pain feels ok ,wants to go home wound cx + pseudomonas, MSSA, PROteus. enterococcus + bcx staph aureus, proteus no cough ever Vitals Vitals Vital Signs Date Time Temp Pulse Resp B/P (MAP) Pulse Ox O2 Delivery O2 Flow Rate FiO2 01/19/18 11:00 97.5 54 20 136/52 (80) 96 Room Air 97.5 01/19/18 08:00 2.0 Physical Exam Physical Exam GENERAL: Sitting on the side of the bed, Alert, smiling HEENT: Pupils are equal and reactive. Oral cavity, pharynx is clear, with some questionable dentition. NECK: Supple, no JVD. LUNGS: Clear to auscultation bilaterally. HEART: S1, S2. ABDOMEN: Obese, soft, nontender EXTREMITIES: No clubbing or cyanosis. Right lower extremity cast has been removed an Rooke boot in place - wound is clean no signs cellulitis. His left upper extremity has AV fistula, without signs of any complications. NEUROLOGIC: He is alert and oriented. He has no focal defects appreciated. SKIN: Warm to touch, without signs of generalized rash, but he does have some scabbing on his right upper extremity. PIV ok General: Alert, Oriented X3, Cooperative, No acute distress Heart: Regular rate Lungs: Clear Abdomen: Soft, No tenderness Extremities: No clubbing, No edema, No tenderness/swelling Skin: No rashes, No breakdown, Other (Pt with right great toe DFU wound. Following cast removal purulent drainage present from wound bed. Wound cx obtained. No surrounding erythema or edema present. Eccymosis present surrounding wound bed extending 0.8cm. Predebridement measurements 0.4x0.6x0.3. Undermining present from 12-12, with max depth of 0.8cm.) Labs LABS Laboratory Tests Test 01/18/18 16:19 01/18/18 20:48 01/19/18 05:05 01/19/18 07:46 Glucose (Fingerstick) 133 mg/dL (70-99) 153 mg/dL (70-99) 78 mg/dL (70-99) White Blood Count 11.3 x10^3/uL (4.0-11.0) Red Blood Count 3.09 x10^6/uL (4.30-5.70) Hemoglobin 10.8 g/dL (13.0-17.5) Hematocrit 30.2 % (39.0-53.0) Mean Corpuscular Volume 98 fL (79-100) Mean Corpuscular Hemoglobin 35 pg (25-35) Mean Corpuscular Hemoglobin Concent 36 g/dL (31-37) Red Cell Distribution Width 13.4 % (11.5-14.5) Platelet Count 128 x10^3/uL (140-400) Neutrophils (%) (Auto) 74 % (31-73) Lymphocytes (%) (Auto) 16 % (24-48) Monocytes (%) (Auto) 7 % (0-9) Eosinophils (%) (Auto) 3 % (0-3) Basophils (%) (Auto) 1 % (0-3) Neutrophils # (Auto) 8.4 x10^3uL (1.8-7.7) Lymphocytes # (Auto) 1.8 x10^3/uL (1.0-4.8) Monocytes # (Auto) 0.8 x10^3/uL (0.0-1.1) Eosinophils # (Auto) 0.3 x10^3/uL (0.0-0.7) Basophils # (Auto) 0.1 x10^3/uL (0.0-0.2) Sodium Level 140 mmol/L (136-145) Potassium Level 3.6 mmol/L (3.5-5.1) Chloride Level 100 mmol/L (98-107) Carbon Dioxide Level 27 mmol/L (21-32) Anion Gap 13 (6-14) Blood Urea Nitrogen 63 mg/dL (8-26) Creatinine 6.9 mg/dL (0.7-1.3) Estimated GFR (Cockcroft-Gault) 7.9 Glucose Level 77 mg/dL (70-99) Calcium Level 7.5 mg/dL (8.5-10.1) Phosphorus Level 4.7 mg/dL (2.6-4.7) Albumin 3.1 g/dL (3.4-5.0) Test 01/19/18 11:43 Glucose (Fingerstick) 131 mg/dL (70-99) Assessment and Plan Assessmemt and Plan Problems Medical Problems: (1) Pneumonia Status: Acute Comment Review of Relevant I have reviewed the following items jennifer (where applicable) has been applied. Labs Laboratory Tests Test 01/17/18 16:21 01/17/18 20:53 01/17/18 21:24 01/18/18 05:20 Glucose (Fingerstick) 150 mg/dL (70-99) 187 mg/dL (70-99) 190 mg/dL (70-99) White Blood Count 10.2 x10^3/uL (4.0-11.0) Red Blood Count 3.25 x10^6/uL (4.30-5.70) Hemoglobin 11.4 g/dL (13.0-17.5) Hematocrit 31.8 % (39.0-53.0) Mean Corpuscular Volume 98 fL (79-100) Mean Corpuscular Hemoglobin 35 pg (25-35) Mean Corpuscular Hemoglobin Concent 36 g/dL (31-37) Red Cell Distribution Width 13.5 % (11.5-14.5) Platelet Count 129 x10^3/uL (140-400) Neutrophils (%) (Auto) 71 % (31-73) Lymphocytes (%) (Auto) 18 % (24-48) Monocytes (%) (Auto) 8 % (0-9) Eosinophils (%) (Auto) 3 % (0-3) Basophils (%) (Auto) 1 % (0-3) Neutrophils # (Auto) 7.2 x10^3uL (1.8-7.7) Lymphocytes # (Auto) 1.9 x10^3/uL (1.0-4.8) Monocytes # (Auto) 0.8 x10^3/uL (0.0-1.1) Eosinophils # (Auto) 0.3 x10^3/uL (0.0-0.7) Basophils # (Auto) 0.1 x10^3/uL (0.0-0.2) Sodium Level 141 mmol/L (136-145) Potassium Level 3.7 mmol/L (3.5-5.1) Chloride Level 100 mmol/L (98-107) Carbon Dioxide Level 29 mmol/L (21-32) Anion Gap 12 (6-14) Blood Urea Nitrogen 43 mg/dL (8-26) Creatinine 5.4 mg/dL (0.7-1.3) Estimated GFR (Cockcroft-Gault) 10.5 Glucose Level 104 mg/dL (70-99) Calcium Level 7.7 mg/dL (8.5-10.1) Phosphorus Level 4.2 mg/dL (2.6-4.7) Albumin 3.1 g/dL (3.4-5.0) Test 01/18/18 07:24 01/18/18 11:44 01/18/18 16:19 01/18/18 20:48 Glucose (Fingerstick) 108 mg/dL (70-99) 142 mg/dL (70-99) 133 mg/dL (70-99) 153 mg/dL (70-99) Test 01/19/18 05:05 01/19/18 07:46 01/19/18 11:43 White Blood Count 11.3 x10^3/uL (4.0-11.0) Red Blood Count 3.09 x10^6/uL (4.30-5.70) Hemoglobin 10.8 g/dL (13.0-17.5) Hematocrit 30.2 % (39.0-53.0) Mean Corpuscular Volume 98 fL (79-100) Mean Corpuscular Hemoglobin 35 pg (25-35) Mean Corpuscular Hemoglobin Concent 36 g/dL (31-37) Red Cell Distribution Width 13.4 % (11.5-14.5) Platelet Count 128 x10^3/uL (140-400) Neutrophils (%) (Auto) 74 % (31-73) Lymphocytes (%) (Auto) 16 % (24-48) Monocytes (%) (Auto) 7 % (0-9) Eosinophils (%) (Auto) 3 % (0-3) Basophils (%) (Auto) 1 % (0-3) Neutrophils # (Auto) 8.4 x10^3uL (1.8-7.7) Lymphocytes # (Auto) 1.8 x10^3/uL (1.0-4.8) Monocytes # (Auto) 0.8 x10^3/uL (0.0-1.1) Eosinophils # (Auto) 0.3 x10^3/uL (0.0-0.7) Basophils # (Auto) 0.1 x10^3/uL (0.0-0.2) Sodium Level 140 mmol/L (136-145) Potassium Level 3.6 mmol/L (3.5-5.1) Chloride Level 100 mmol/L (98-107) Carbon Dioxide Level 27 mmol/L (21-32) Anion Gap 13 (6-14) Blood Urea Nitrogen 63 mg/dL (8-26) Creatinine 6.9 mg/dL (0.7-1.3) Estimated GFR (Cockcroft-Gault) 7.9 Glucose Level 77 mg/dL (70-99) Calcium Level 7.5 mg/dL (8.5-10.1) Phosphorus Level 4.7 mg/dL (2.6-4.7) Albumin 3.1 g/dL (3.4-5.0) Glucose (Fingerstick) 78 mg/dL (70-99) 131 mg/dL (70-99) Laboratory Tests Test 01/18/18 16:19 01/18/18 20:48 01/19/18 05:05 01/19/18 07:46 Glucose (Fingerstick) 133 mg/dL (70-99) 153 mg/dL (70-99) 78 mg/dL (70-99) White Blood Count 11.3 x10^3/uL (4.0-11.0) Red Blood Count 3.09 x10^6/uL (4.30-5.70) Hemoglobin 10.8 g/dL (13.0-17.5) Hematocrit 30.2 % (39.0-53.0) Mean Corpuscular Volume 98 fL (79-100) Mean Corpuscular Hemoglobin 35 pg (25-35) Mean Corpuscular Hemoglobin Concent 36 g/dL (31-37) Red Cell Distribution Width 13.4 % (11.5-14.5) Platelet Count 128 x10^3/uL (140-400) Neutrophils (%) (Auto) 74 % (31-73) Lymphocytes (%) (Auto) 16 % (24-48) Monocytes (%) (Auto) 7 % (0-9) Eosinophils (%) (Auto) 3 % (0-3) Basophils (%) (Auto) 1 % (0-3) Neutrophils # (Auto) 8.4 x10^3uL (1.8-7.7) Lymphocytes # (Auto) 1.8 x10^3/uL (1.0-4.8) Monocytes # (Auto) 0.8 x10^3/uL (0.0-1.1) Eosinophils # (Auto) 0.3 x10^3/uL (0.0-0.7) Basophils # (Auto) 0.1 x10^3/uL (0.0-0.2) Sodium Level 140 mmol/L (136-145) Potassium Level 3.6 mmol/L (3.5-5.1) Chloride Level 100 mmol/L (98-107) Carbon Dioxide Level 27 mmol/L (21-32) Anion Gap 13 (6-14) Blood Urea Nitrogen 63 mg/dL (8-26) Creatinine 6.9 mg/dL (0.7-1.3) Estimated GFR (Cockcroft-Gault) 7.9 Glucose Level 77 mg/dL (70-99) Calcium Level 7.5 mg/dL (8.5-10.1) Phosphorus Level 4.7 mg/dL (2.6-4.7) Albumin 3.1 g/dL (3.4-5.0) Test 01/19/18 11:43 Glucose (Fingerstick) 131 mg/dL (70-99) Microbiology 01/13/18 Blood Culture - Final, Complete NO GROWTH AFTER 5 DAYS 01/14/18 Anaerobic/Aerobic Culture - Preliminary, Resulted 01/14/18 Anaerobic Culture Result 1 (KATHERINE) - Preliminary, Resulted 01/14/18 Aerobic Culture - Final, Resulted 01/14/18 Aerobic Culture Result 1 (KATHERINE) - Final, Resulted 01/14/18 Aerobic Culture Result 2 (KATHERINE) - Final, Resulted 01/14/18 Aerobic Culture Result 3 (KATHERINE) - Final, Resulted 01/14/18 Aerobic Culture Result 4 (KATHERINE) - Final, Resulted 01/14/18 Antimicrobic Susceptibility - Final, Resulted 01/14/18 Gram Stain - Final, Resulted 01/14/18 Gram Stain Result 1 (KATHERINE) - Final, Resulted 01/14/18 Gram Stain Result 2 (KATHERINE) - Final, Resulted 01/14/18 Gram Stain Result 3 (KATHERINE) - Final, Resulted Medications Current Medications Piperacillin Sod/ Tazobactam Sod (Zosyn Per Pharmacy) 1 each PRN DAILY PRN MC SEE COMMENTS; Start 01/12/18 at 19:15; Stop 01/13/18 at 11:24; Status DC Vancomycin HCl (Vanco Per Pharmacy) 1 each PRN DAILY PRN MC SEE COMMENTS Last administered on 01/19/18at 12:11; Start 01/12/18 at 19:15 Vancomycin HCl 2 gm/Sodium Chloride 500 ml @ 250 mls/hr 1X ONCE IV Last administered on 01/12/18at 20:08; Start 01/12/18 at 20:00; Stop 01/12/18 at 21:59; Status DC Piperacillin Sod/ Tazobactam Sod 2.25 gm/Sodium Chloride 50 ml @ 100 mls/hr 1X ONCE IV Last administered on 01/12/18at 19:31; Start 01/12/18 at 19:30; Stop 01/12/18 at 19:59; Status DC Ondansetron HCl (Zofran) 4 mg PRN Q8HRS PRN IV NAUSEA/VOMITING; Start 01/12/18 at 19:30; Stop 01/13/18 at 19:29; Status DC Piperacillin Sod/ Tazobactam Sod 2.25 gm/Sodium Chloride 50 ml @ 100 mls/hr Q6HRS IV Last administered on 01/13/18at 11:11; Start 01/13/18 at 00:00; Stop 01/13 at 11:24; Status DC Vancomycin HCl (Vancomycin Random Level) 1 each 1X ONCE MC ; Start 01/15/18 at 06:00; Stop 01/15/18 at 06:00; Status DC Acetaminophen (Tylenol) 650 mg PRN Q6HRS PRN PO FEVER; Start 01/13/18 at 08:45 Ondansetron HCl (Zofran) 4 mg PRN Q6HRS PRN IV NAUSEA/VOMITING; Start 01/13/18 at 08:45 Morphine Sulfate (Morphine Sulfate) 2 mg PRN Q2HR PRN IV MODERATE TO SEVERE PAIN; Start 01/13/18 at 08:45 Tramadol HCl (Ultram) 50 mg PRN Q6HRS PRN PO MILD TO MODERATE PAIN; Start at 08:45 Docusate Sodium (Colace) 100 mg PRN DAILY PRN PO CONSTIPATION Last administered on 01/18/18 08:12; Start 01/13/18 at 08:45 Allopurinol (Zyloprim) 100 mg DAILY PO Last administered on 01/19/18 08:26; Start 01/13/18 at 09:00 Apixaban (Eliquis) 5 mg BID PO Last administered on 01/19/18 08:26; Start at 09:00 Atorvastatin Calcium (Lipitor) 20 mg HS PO Last administered on 01/18/18at 20:50 ; Start 01/13/18 at 21:00 Carvedilol (Coreg) 6.25 mg BIDWMEALS PO Last administered on 01/19/18 08:26; Start 01/13/18 at 09:00 Cinacalcet (Sensipar) 60 mg DAILY PO Last administered on 01/19/18 08:25; Start 01/13/18 at 09:00 Ferrous Sulfate (Feosol) 325 mg TID PO Last administered on 01/19/18 13:32; Start 01/13/18 at 09:00 Furosemide (Lasix) 40 mg BID92 PO Last administered on 01/19/18 13:32; Start at 09:00 Sevelamer Carbonate (Renvela) 2,400 mg TIDWMEALS PO Last administered on at 12:04; Start 01/13/18 at 09:00 Insulin Glargine (Lantus) 20 units QHS SQ Last administered on 01/18/18at 20:55; Start 01/13/18 at 21:00 Atorvastatin Calcium (Lipitor) 5 mg QHS PO ; Start 01/13/18 at 21:00; Status Cancel Insulin Human Lispro (HumaLOG) 0-9 UNITS TIDWMEALS SQ Last administered on at 17:40; Start 01/13/18 at 12:00 Dextrose (Dextrose 50%-Water Syringe) 12.5 gm PRN Q15MIN PRN IV SEE COMMENTS; Start 01/13/18 at 08:45 Piperacillin Sod/ Tazobactam Sod 2.25 gm/Sodium Chloride 50 ml @ 100 mls/hr Q8HRS IV Last administered on 01/18/18at 06:08; Start 01/13/18 at 14:00; Stop 01/18 at 07:58; Status DC Lactobacillus Rhamnosus (Culturelle) 1 cap BID PO Last administered on at 08:26; Start 01/13/18 at 21:00 Sodium Chloride 1,000 ml @ 1,000 mls/hr Q1H PRN IV hypotension; Start 01/13/18 at 12:00; Stop 01/13/18 at 17:59; Status DC Sodium Chloride 1,000 ml @ 400 mls/hr Q2H30M PRN IV PATENCY; Start 01/13/18 at 12:00; Stop 01/13/18 at 23:59; Status DC Info (PHARMACY MONITORING -- do not chart) 1 each PRN DAILY PRN MC SEE COMMENTS ; Start 01/13/18 at 15:30; Stop 01/15/18 at 14:53; Status DC Info (PHARMACY MONITORING -- do not chart) 1 each PRN DAILY PRN MC SEE COMMENTS ; Start 01/13/18 at 15:30; Status UNV Albuterol Sulfate (Ventolin Neb Soln) 2.5 mg PRN Q4HRS PRN NEB SHORTNESS OF BREATH; Start 01/13/18 at 16:45 Ascorbic Acid (Vitamin C) 500 mg DAILY PO Last administered on 01/19/18at 08:26; Start 01/14/18 at 09:30 Vitamin B Complex/ Vitamin C (Mindy-Maureen) 1 tab DAILY PO Last administered on 01/19/18at 08:26; Start 01/14/18 at 09:30 Info (Anti-Coagulation Monitoring By Pharmacy) 1 each PRN DAILY PRN MC SEE COMMENTS Last administered on 01/19/18at 12:07; Start 01/14/18 at 11:45 Vancomycin HCl 500 mg/Sodium Chloride 100 ml @ 100 mls/hr ONCE ONCE IV Last administered on 01/14/18at 16:32; Start 01/14/18 at 15:00; Stop 01/14/18 at 15:59; Status DC Vancomycin HCl 500 mg/Sodium Chloride 100 ml @ 100 mls/hr QMWF IV Last administered on 01/17/18at 15:40; Start 01/15/18 at 16:00 Sodium Chloride 1,000 ml @ 1,000 mls/hr Q1H PRN IV hypotension; Start 01/15/18 at 06:30; Stop 01/15/18 at 12:29; Status DC Diphenhydramine HCl (Benadryl) 25 mg 1X PRN PRN IV ITCHING; Start 01/15/18 at 06 :30; Stop 01/16/18 at 06:29; Status DC Diphenhydramine HCl (Benadryl) 25 mg 1X PRN PRN IV ITCHING; Start 01/15/18 at 06 :30; Stop 01/16/18 at 06:29; Status DC Sodium Chloride 1,000 ml @ 400 mls/hr Q2H30M PRN IV PATENCY; Start 01/15/18 at 06:30; Stop 01/15/18 at 18:29; Status DC Info (PHARMACY MONITORING -- do not chart) 1 each PRN DAILY PRN MC SEE COMMENTS ; Start 01/15/18 at 06:30; Stop 01/17/18 at 15:04; Status DC Sodium Chloride 1,000 ml @ 1,000 mls/hr Q1H PRN IV hypotension; Start 01/17/18 at 08:36; Stop 01/17/18 at 14:35; Status DC Albumin Human 200 ml @ 200 mls/hr 1X PRN PRN IV Hypotension; Start 01/17/18 at 08:45; Stop 01/17/18 at 14:44; Status DC Acetaminophen (Tylenol) 500 mg 1X PRN PRN PO MILD PAIN / TEMP; Start 01/17/18 at 08:45; Stop 01/18/18 at 08:44; Status DC Diphenhydramine HCl (Benadryl) 25 mg 1X PRN PRN IV ITCHING; Start 01/17/18 at 08 :45; Stop 01/18/18 at 08:44; Status DC Diphenhydramine HCl (Benadryl) 25 mg 1X PRN PRN IV ITCHING; Start 01/17/18 at 08 :45; Stop 01/18/18 at 08:44; Status DC Labetalol HCl (Normodyne Iv Push) 10 mg PRN Q1HR PRN IVP SBP > 180; Start at 08:45; Stop 01/18/18 at 08:44; Status DC Clonidine HCl (Catapres) 0.1 mg 1X PRN PRN PO SBP > 180; Start 01/17/18 at 08:45 ; Stop 01/18/18 at 08:44; Status DC Sodium Chloride 1,000 ml @ 400 mls/hr Q2H30M PRN IV PATENCY; Start 01/17/18 at 08:36; Stop 01/17/18 at 20:35; Status DC Info (PHARMACY MONITORING -- do not chart) 1 each PRN DAILY PRN MC SEE COMMENTS ; Start 01/17/18 at 08:45; Status UNV Info (PHARMACY MONITORING -- do not chart) 1 each PRN DAILY PRN MC SEE COMMENTS ; Start 01/17/18 at 08:45 Ceftriaxone Sodium 2 gm/ Dextrose 100 ml @ 200 mls/hr Q24H IV ; Start 01/18/18 at 08:00; Status UNV Ceftriaxone Sodium (Rocephin) 2 gm Q24H IVP Last administered on 01/19/18at 08:23 ; Start 01/18/18 at 09:00; Stop 01/19/18 at 12:26; Status DC Cefepime HCl 1 gm/ Dextrose 50 ml @ 100 mls/hr DAILY IV ; Start 01/20/18 at 09: 00; Status UNV Cefepime HCl (Maxipime) 1 gm Q24H IVP Last administered on 01/19/18at 13:32; Start 01/19/18 at 13:00 Active Scripts Active Culturelle (Lactobacillus Rhamnosus Gg) 1 Each Cap.sprink 1 Cap PO BID Cefpodoxime Proxetil 100 Mg Tablet 200 Mg PO BID Allopurinol 100 Mg Tablet 100 Mg PO DAILY Novolog Flexpen (Insulin Aspart) 100 Unit/1 Ml Insuln.pen 0 Units SQ TIDWMEALS 30 Days Levemir Flextouch (Insulin Detemir) 100 Unit/1 Ml Insuln.pen 20 Units SQ QHS 30 Days Reported Renvela (Sevelamer Carbonate) 800 Mg Tablet 3 Tab PO TID Entresto 49 mg-51 mg Tablet (Sacubitril/Valsartan) 1 Each Tablet 1 Each PO Lasix (Furosemide) 40 Mg Tablet 40 Mg PO BID Sensipar (Cinacalcet Hcl) 30 Mg Tablet 60 Mg PO DAILY Eliquis (Apixaban) 5 Mg Tablet 5 Mg PO BID Ferrous Sulfate 325 Mg Tablet 1 Tab PO TID Coreg (Carvedilol) 6.25 Mg Tablet 1 Tab PO BID Atorvastatin Calcium 20 Mg Tablet 20 Mg PO HS Pravastatin Sodium 20 Mg Tablet 20 Mg PO DAILY Vitals/I & O Vital Sign - Last 24 Hours 01/18/18 01/18/18 01/18/18 01/18/18 15:52 17:13 19:55 19:59 Temp 97.6 97.6 97.6 97.6 Pulse 59 59 61 Resp 18 19 B/P (MAP) 131/66 (87) 131/66 122/61 (81) Pulse Ox 96 96 O2 Delivery Room Air Room Air Room Air 01/18/18 01/19/18 01/19/18 01/19/18 23:28 03:59 07:00 08:00 Temp 97.8 96.4 97.8 96.4 Pulse 66 63 Resp 18 20 B/P (MAP) 124/69 (87) 155/79 (104) Pulse Ox 93 98 O2 Delivery Room Air BiPAP/CPAP Room Air Room Air O2 Flow Rate 2.0 01/19/18 01/19/18 01/19/18 08:19 08:26 11:00 Temp 96.4 97.5 96.4 97.5 Pulse 63 63 54 Resp 20 20 B/P (MAP) 155/79 (104) 155/79 136/52 (80) Pulse Ox 98 96 O2 Delivery Room Air Room Air Intake and Output 01/18/18 01/18/18 01/19/18 15:00 23:00 07:00 Intake Total 240 ml 240 ml 120 ml Balance 240 ml 240 ml 120 ml ARIELLA ESQUIVEL MD Jan 19, 2018 14:26
[2018-01-19 15:00] VITALS: BP 144/62
--- NOTE | 2018-01-19 15:29 | CARD ---
MR#: [id number] Date of Study: 01/19/2018 Ordering Physician: VIRIDIANA ARANA, Referring Physician: MARCUS ROD Tech: Jennifer Giang RDCS APPROVED REPORT EXAM: Two-dimensional and M-mode echocardiogram with Doppler and color Doppler. Other Information HR: 53bpm INDICATION Congestive Heart Failure sepsis 2D DIMENSIONS Left Atrium(2D)5.9 (1.6-4.0cm)IVSd1.2 (0.7-1.1cm) Aortic Root(2D)3.3 (2.0-3.7cm)LVDd6.1 (3.9-5.9cm) LVOT Diameter2.3 (1.8-2.4cm)PWd1.3 (0.7-1.1cm) LVDs5.3 (2.5-4.0cm)FS (%) 14.1 % SV55.3 mlLVEF(%)40.0 (>50%) Aortic Valve AoV Peak Curt.194.6cm/sAoV VTI40.5cm AO Peak GR.15.1mmHgLVOT Peak Curt.104.2cm/s LVOT VTI 24.65cmAO Mean GR.8mmHg MINDY (VMAX)1.83df2JRD (VTI)2.58cm2 Mitral Valve MV E Autlsgza09.9cm/sMV E Peak Gr.109mmHg MV DECEL [id number] RTM64la MVA (PHT)4.09cm2 TDI E/Lateral E'11.9 Pulmonary Valve PV Peak Usdsuwez914.0cm/sPV Peak Grad.7mmHg Tricuspid Valve RAP [id number] LEFT VENTRICLE The Left Ventricle is mildly dilated. There is mild concentric left ventricular hypertrophy. Left gemini tricle systolic function is mildly impaired. The Ejection Fraction is 40-45%. There is global hypokin esis of the left ventricle. Tissue Doppler imaging reveals moderate left ventricular diastolic dysfun ction. RIGHT VENTRICLE The right ventricle is normal size. There is normal right ventricular wall thickness. The right ventr icular systolic function is normal. ATRIA The left atrium is moderately dilated. The right atrium is mildly dilated. The interatrial septum is intact with no evidence for an atrial septal defect or patent foramen ovale as noted on 2-D or Dopple r imaging. AORTIC VALVE The aortic valve is calcified but opens well. Doppler and Color Flow revealed no significant aortic r egurgitation. There is no significant aortic valvular stenosis. MITRAL VALVE The mitral valve is calcified but opens well. There is no mitral valve stenosis. Doppler and Color-fl ow revealed mild to moderate mitral regurgitation. TRICUSPID VALVE The tricuspid valve is normal in structure and function. Doppler and Color Flow revealed trace tricus pid regurgitation. There is no tricuspid valve stenosis. PULMONIC VALVE The pulmonary valve is normal in structure and function. Doppler and Color Flow revealed mild to mode rate pulmonic valvular regurgitation. There is no pulmonic valvular stenosis. GREAT VESSELS The aortic root is normal in size. The IVC is dilated and collapses <50% with inspiration. PERICARDIAL EFFUSION There is no evidence of significant pericardial effusion. Critical Notification Critical Value: No <Conclusion> Left ventricle systolic function is mildly impaired. The Ejection Fraction is 40-45%. There is global hypokinesis of the left ventricle. Doppler and Color-flow revealed mild to moderate mitral regurgitation. Doppler and Color Flow revealed mild to moderate pulmonic valvular regurgitation. Signed by : Art Romano, Electronically Approved : 01/19/2018 15:28:56
[2018-01-19 19:00] VITALS: BP 136/55
[2018-01-19] MEDS: ATORVASTATIN CALCIUM 20 MG TABLET PO SCH (20:47)
[2018-01-19] MEDS: INSULIN GLARGINE 300 UNITS/3 ML INSULN.PEN. SQ SCH (20:48)
[2018-01-19 23:00] VITALS: BP 127/52
[2018-01-20 06:42] LABS: HEMATOCRIT 29.8 % (39.0-53.0); HEMOGLOBIN 10.7 g/dL (13.0-17.5); RED BLOOD COUNT 3.05 x10^6/uL (4.30-5.70); RED CELL DISTRIBUTION WIDTH 13.3 % (11.5-14.5)
[2018-01-20 06:58] LABS: CALCIUM 7.9 mg/dL (8.5-10.1); CREATININE 7.5 mg/dL (0.7-1.3); GFR 7.2; POTASSIUM 3.6 mmol/L (3.5-5.1)
[2018-01-20 07:00] VITALS: BP 141/69
[2018-01-20] MEDS: INSULIN LISPRO 300 UNITS/3 ML INSULN.PEN. SQ SCH ×3 (07:53→17:05)
[2018-01-20] MEDS: CARVEDILOL 6.25 MG TABLET. PO SCH ×2 (08:00→17:03)
[2018-01-20] MEDS: SEVELAMER CARBONATE 800 MG TABLET. PO SCH ×3 (08:12→17:02)
[2018-01-20] MEDS: FOLIC/VIT B COMP W-C (RENAL) TABLET. PO SCH (08:12)
[2018-01-20] MEDS: CINACALCET HCL 30 MG TABLET PO SCH (08:12)
[2018-01-20] MEDS: APIXABAN 5 MG TABLET. PO SCH ×2 (08:13→20:17)
[2018-01-20] MEDS: ALLOPURINOL 100 MG TABLET. PO SCH (08:13)
[2018-01-20] MEDS: ASCORBIC ACID 500 MG TABLET PO SCH (08:13)
[2018-01-20] MEDS: LACTOBACILLUS RHAMNOSUS GG 1 CAPSULE. PO SCH ×2 (08:13→20:17)
[2018-01-20] MEDS: FERROUS SULFATE 325 MG TABLET. PO SCH ×3 (08:13→20:17)
--- NOTE | 2018-01-20 08:38 | PDOC ---
PULMONARY PROGRESS NOTES Subjective no sob, cough, or pain, no runny nose Vitals Vital Signs Date Time Temp Pulse Resp B/P (MAP) Pulse Ox O2 Delivery O2 Flow Rate FiO2 01/20/18 07:00 97.6 63 20 141/69 (93) 97 Room Air 97.6 01/19/18 08:00 2.0 ROS: No Nausea General: Alert, No acute distress HEENT: Other (nc at perrl) Lungs: Clear Cardiovascular: S1, S2 Abdomen: Soft, Non-tender Neuro Exam: Alert, Oriented Extremities: Other (right leg cast) Skin: Warm Labs Laboratory Tests Test 01/18/18 11:44 01/18/18 16:19 01/18/18 20:48 01/19/18 05:05 Glucose (Fingerstick) 142 mg/dL (70-99) 133 mg/dL (70-99) 153 mg/dL (70-99) White Blood Count 11.3 x10^3/uL (4.0-11.0) Red Blood Count 3.09 x10^6/uL (4.30-5.70) Hemoglobin 10.8 g/dL (13.0-17.5) Hematocrit 30.2 % (39.0-53.0) Mean Corpuscular Volume 98 fL (79-100) Mean Corpuscular Hemoglobin 35 pg (25-35) Mean Corpuscular Hemoglobin Concent 36 g/dL (31-37) Red Cell Distribution Width 13.4 % (11.5-14.5) Platelet Count 128 x10^3/uL (140-400) Neutrophils (%) (Auto) 74 % (31-73) Lymphocytes (%) (Auto) 16 % (24-48) Monocytes (%) (Auto) 7 % (0-9) Eosinophils (%) (Auto) 3 % (0-3) Basophils (%) (Auto) 1 % (0-3) Neutrophils # (Auto) 8.4 x10^3uL (1.8-7.7) Lymphocytes # (Auto) 1.8 x10^3/uL (1.0-4.8) Monocytes # (Auto) 0.8 x10^3/uL (0.0-1.1) Eosinophils # (Auto) 0.3 x10^3/uL (0.0-0.7) Basophils # (Auto) 0.1 x10^3/uL (0.0-0.2) Sodium Level 140 mmol/L (136-145) Potassium Level 3.6 mmol/L (3.5-5.1) Chloride Level 100 mmol/L (98-107) Carbon Dioxide Level 27 mmol/L (21-32) Anion Gap 13 (6-14) Blood Urea Nitrogen 63 mg/dL (8-26) Creatinine 6.9 mg/dL (0.7-1.3) Estimated GFR (Cockcroft-Gault) 7.9 Glucose Level 77 mg/dL (70-99) Calcium Level 7.5 mg/dL (8.5-10.1) Phosphorus Level 4.7 mg/dL (2.6-4.7) Albumin 3.1 g/dL (3.4-5.0) Test 01/19/18 07:46 01/19/18 11:43 01/19/18 16:08 01/19/18 20:23 Glucose (Fingerstick) 78 mg/dL (70-99) 131 mg/dL (70-99) 147 mg/dL (70-99) 179 mg/dL (70-99) Test 01/20/18 06:07 01/20/18 07:34 White Blood Count 11.0 x10^3/uL (4.0-11.0) Red Blood Count 3.05 x10^6/uL (4.30-5.70) Hemoglobin 10.7 g/dL (13.0-17.5) Hematocrit 29.8 % (39.0-53.0) Mean Corpuscular Volume 98 fL (79-100) Mean Corpuscular Hemoglobin 35 pg (25-35) Mean Corpuscular Hemoglobin Concent 36 g/dL (31-37) Red Cell Distribution Width 13.3 % (11.5-14.5) Platelet Count 134 x10^3/uL (140-400) Sodium Level 140 mmol/L (136-145) Potassium Level 3.6 mmol/L (3.5-5.1) Chloride Level 100 mmol/L (98-107) Carbon Dioxide Level 26 mmol/L (21-32) Anion Gap 14 (6-14) Blood Urea Nitrogen 77 mg/dL (8-26) Creatinine 7.5 mg/dL (0.7-1.3) Estimated GFR (Cockcroft-Gault) 7.2 Glucose Level 107 mg/dL (70-99) Calcium Level 7.9 mg/dL (8.5-10.1) Glucose (Fingerstick) 122 mg/dL (70-99) Laboratory Tests Test 01/19/18 11:43 01/19/18 16:08 01/19/18 20:23 01/20/18 06:07 Glucose (Fingerstick) 131 mg/dL (70-99) 147 mg/dL (70-99) 179 mg/dL (70-99) White Blood Count 11.0 x10^3/uL (4.0-11.0) Red Blood Count 3.05 x10^6/uL (4.30-5.70) Hemoglobin 10.7 g/dL (13.0-17.5) Hematocrit 29.8 % (39.0-53.0) Mean Corpuscular Volume 98 fL (79-100) Mean Corpuscular Hemoglobin 35 pg (25-35) Mean Corpuscular Hemoglobin Concent 36 g/dL (31-37) Red Cell Distribution Width 13.3 % (11.5-14.5) Platelet Count 134 x10^3/uL (140-400) Sodium Level 140 mmol/L (136-145) Potassium Level 3.6 mmol/L (3.5-5.1) Chloride Level 100 mmol/L (98-107) Carbon Dioxide Level 26 mmol/L (21-32) Anion Gap 14 (6-14) Blood Urea Nitrogen 77 mg/dL (8-26) Creatinine 7.5 mg/dL (0.7-1.3) Estimated GFR (Cockcroft-Gault) 7.2 Glucose Level 107 mg/dL (70-99) Calcium Level 7.9 mg/dL (8.5-10.1) Test 01/20/18 07:34 Glucose (Fingerstick) 122 mg/dL (70-99) Medications Active Scripts Medications Dose Route/Sig Max Daily Dose Days Date Category Culturelle (Lactobacillus Rhamnosus Gg) 1 Each Cap.sprink 1 Cap PO BID 06/06/17 Rx Cefpodoxime Proxetil 100 Mg Tablet 200 Mg PO BID 06/06/17 Rx Allopurinol 100 Mg Tablet 100 Mg PO DAILY 1/25/18 Rx Renvela (Sevelamer Carbonate) 800 Mg Tablet 3 Tab PO TID 06/03/17 Reported Entresto 49 mg-51 mg Tablet (Sacubitril/Valsartan) 1 Each Tablet 1 Each PO 06/03/17 Reported Lasix (Furosemide) 40 Mg Tablet 40 Mg PO BID 06/03/17 Reported Sensipar (Cinacalcet Hcl) 30 Mg Tablet 60 Mg PO DAILY 06/03/17 Reported Eliquis (Apixaban) 5 Mg Tablet 5 Mg PO BID 06/03/17 Reported Ferrous Sulfate 325 Mg Tablet 1 Tab PO TID 06/03/17 Reported Coreg (Carvedilol) 6.25 Mg Tablet 1 Tab PO BID 06/03/17 Reported Atorvastatin Calcium 20 Mg Tablet 20 Mg PO HS 06/03/17 Reported Novolog Flexpen (Insulin Aspart) 100 Unit/1 Ml Insuln.pen 0 Units SQ TIDWMEALS 30 01/12/17 Rx Levemir Flextouch (Insulin Detemir) 100 Unit/1 Ml Insuln.pen 20 Units SQ QHS 30 01/12/17 Rx Pravastatin Sodium 20 Mg Tablet 20 Mg PO DAILY 06/26/13 Reported Impression . 1. Abnormal CT chest revealing mild airspace disease LLL with suspected pneumonia. 2. A 4 mm left lingular pulmonary nodule. 3. Tobacco dependence, in remission, quit in 1979. 4. Bacteremia 5. Possible sepsis. 7. End-stage renal disease. 8. Chronic toe wound on the right. 9. History of Enterobacter sepsis. 10. Cardiomyopathy with ejection fraction of 35%. 11. Prior history of cerebrovascular accident. 12. History of gout, diabetes and hypertension. Plan . 1. cont abx per id, 2. Repeat CT chest in 6 months. reg 4 mm lingular nodule 3. Follow Infectious Diseases recommendation. 4. P.r.n. nebulized treatments. 5. Deep venous thrombosis and gastrointestinal prophylaxis. 6. increase activity discussed w pt TRINH MCKINNON MD Jan 20, 2018 08:38
[2018-01-20] MEDS ORDERED: CEFEPIME HCL 1 GM in IV DEXTROSE 5% 50 ML IV SCH (09:00)
[2018-01-20] MEDS: FUROSEMIDE 40 MG TABLET. PO SCH ×2 (09:00→15:18)
[2018-01-20] MEDS ORDERED: IV NORMAL SALINE 1000ML BAG 1,000 ML IV PRN ×4 (09:02→09:19)
[2018-01-20] MEDS ORDERED: ACETAMINOPHEN 500 MG TABLET PO PRN (09:15)
[2018-01-20] MEDS ORDERED: diphenhydrAMINE 50 MG/ML VIAL IV PRN ×2 (09:15)
[2018-01-20] MEDS ORDERED: DIALYSIS PATIENT. MC PRN ×2 (09:30)
--- NOTE | 2018-01-20 09:46 | PDOC ---
Infectious Disease Note Subjective Subjective Comfortable, denies pain Hoping to go home soon No F/C/S/N/V/D Vital Sign Vital Signs Vital Signs Date Time Temp Pulse Resp B/P (MAP) Pulse Ox O2 Delivery O2 Flow Rate FiO2 01/20/18 07:00 97.6 63 20 141/69 (93) 97 Room Air 97.6 01/19/18 08:00 2.0 Physical Exam PHYSICAL EXAM GENERAL: Sitting on the side of the bed, Alert, smiling HEENT: Pupils are equal and reactive. Oral cavity, pharynx is clear, with some questionable dentition. NECK: Supple, no JVD. LUNGS: Clear to auscultation bilaterally. HEART: S1, S2. ABDOMEN: Obese, soft, nontender EXTREMITIES: No clubbing or cyanosis. Right lower extremity cast has been removed an Rooke boot in place - wound is clean no signs cellulitis. His left upper extremity has AV fistula, without signs of any complications. NEUROLOGIC: He is alert and oriented. He has no focal defects appreciated. SKIN: Warm to touch, without signs of generalized rash, but he does have some scabbing on his right upper extremity. PIV ok Labs Lab Laboratory Tests Test 01/19/18 11:43 01/19/18 16:08 01/19/18 20:23 01/20/18 06:07 Glucose (Fingerstick) 131 mg/dL (70-99) 147 mg/dL (70-99) 179 mg/dL (70-99) White Blood Count 11.0 x10^3/uL (4.0-11.0) Red Blood Count 3.05 x10^6/uL (4.30-5.70) Hemoglobin 10.7 g/dL (13.0-17.5) Hematocrit 29.8 % (39.0-53.0) Mean Corpuscular Volume 98 fL (79-100) Mean Corpuscular Hemoglobin 35 pg (25-35) Mean Corpuscular Hemoglobin Concent 36 g/dL (31-37) Red Cell Distribution Width 13.3 % (11.5-14.5) Platelet Count 134 x10^3/uL (140-400) Sodium Level 140 mmol/L (136-145) Potassium Level 3.6 mmol/L (3.5-5.1) Chloride Level 100 mmol/L (98-107) Carbon Dioxide Level 26 mmol/L (21-32) Anion Gap 14 (6-14) Blood Urea Nitrogen 77 mg/dL (8-26) Creatinine 7.5 mg/dL (0.7-1.3) Estimated GFR (Cockcroft-Gault) 7.2 Glucose Level 107 mg/dL (70-99) Calcium Level 7.9 mg/dL (8.5-10.1) Test 01/20/18 07:34 Glucose (Fingerstick) 122 mg/dL (70-99) Micro Objective Assessment MSSA and proteus bacteremia (2 of 2 bottles) from 01/12. Repeat BC 01/13 NGTD. echo pending Wound right toe,,, superficial and no sign of infection, with growth of MSSA, proteus, enterococcus and PSA (late growth) from 01/14 Leukocytosis CKD on HD M/W/F S/p cat scratches to right hand/arm - no gross cellulitis N/V -better H/o Enterobacter sepsis December 2016 Plan Plan of Care d/c Vanc Cefepime, renal dosing for PSA coverage per Dr. Sher f/u final culture results ECHO pending Probiotics Supportive care if renal can do iv cefepime , then d/c on that post every HD for at least 4 wks if not then cefazolin for 4 wks and po cipro for 10 days NIXON SIERRA MD Jan 20, 2018 09:46
--- NOTE | 2018-01-20 10:56 | PDOC ---
Renal-Progress Notes Subjective Notes Notes FEELS WELL,NO COMPLAINTS History of Present Illness Hx of present illness STABLE Vitals Vitals Vital Signs Date Time Temp Pulse Resp B/P (MAP) Pulse Ox O2 Delivery O2 Flow Rate FiO2 01/20/18 08:00 Room Air 01/20/18 07:00 97.6 63 20 141/69 (93) 97 97.6 01/19/18 08:00 2.0 Weight Weight [ ] I.O. Intake and Output Intake and Output 01/20/18 07:00 Intake Total 1120 ml Balance 1120 ml Intake Oral 1120 ml # Voids 7 Labs Labs Laboratory Tests Test 01/19/18 11:43 01/19/18 16:08 01/19/18 20:23 01/20/18 06:07 Glucose (Fingerstick) 131 mg/dL (70-99) 147 mg/dL (70-99) 179 mg/dL (70-99) White Blood Count 11.0 x10^3/uL (4.0-11.0) Red Blood Count 3.05 x10^6/uL (4.30-5.70) Hemoglobin 10.7 g/dL (13.0-17.5) Hematocrit 29.8 % (39.0-53.0) Mean Corpuscular Volume 98 fL (79-100) Mean Corpuscular Hemoglobin 35 pg (25-35) Mean Corpuscular Hemoglobin Concent 36 g/dL (31-37) Red Cell Distribution Width 13.3 % (11.5-14.5) Platelet Count 134 x10^3/uL (140-400) Sodium Level 140 mmol/L (136-145) Potassium Level 3.6 mmol/L (3.5-5.1) Chloride Level 100 mmol/L (98-107) Carbon Dioxide Level 26 mmol/L (21-32) Anion Gap 14 (6-14) Blood Urea Nitrogen 77 mg/dL (8-26) Creatinine 7.5 mg/dL (0.7-1.3) Estimated GFR (Cockcroft-Gault) 7.2 Glucose Level 107 mg/dL (70-99) Calcium Level 7.9 mg/dL (8.5-10.1) Test 01/20/18 07:34 Glucose (Fingerstick) 122 mg/dL (70-99) Micro Micro Microbiology 01/13/18 Blood Culture - Final, Complete NO GROWTH AFTER 5 DAYS 01/14/18 Anaerobic/Aerobic Culture - Preliminary, Resulted 01/14/18 Anaerobic Culture Result 1 (KATHERINE) - Preliminary, Resulted 01/14/18 Aerobic Culture - Final, Resulted 01/14/18 Aerobic Culture Result 1 (KATHERINE) - Final, Resulted 01/14/18 Aerobic Culture Result 2 (KATHERINE) - Final, Resulted 01/14/18 Aerobic Culture Result 3 (KATHERINE) - Final, Resulted 01/14/18 Aerobic Culture Result 4 (KATHERINE) - Final, Resulted 01/14/18 Antimicrobic Susceptibility - Final, Resulted 01/14/18 Gram Stain - Final, Resulted 01/14/18 Gram Stain Result 1 (KATHERINE) - Final, Resulted 01/14/18 Gram Stain Result 2 (KATHERINE) - Final, Resulted 01/14/18 Gram Stain Result 3 (KATHERINE) - Final, Resulted Review of Systems Constitutional: yes: alert, oriented Ears/Nose/Throat: Yes: no symptom reported Eyes: Yes: no symptom reported Pulmonary: Yes no symptom reported Cardiovascular: Yes no symptom reported Gastrointestional: Yes: no symptom reported Musculoskeletal: Yes: no symptom reported Skin: Yes no symptom reported Psychiatric/Neurological: Yes: no symptom reported Endocrine: Yes: no symptom reported Physical Exam General Appearance: no apparent distress Respiratory: bilateral CTA Heart: S1S2 Abdomen: soft, bowel sounds present Genitourinary: bladder flat Extremities: pulses present Neurology: alert, oriented Assessment Assessment IMP ESRD ANEMIA ?SEPSIS PLAN HD TODAY UF TO DW ANTIBIOTICS WILL FOLLOW SIGIFREDO CLARK MD Jan 20, 2018 10:56
--- NOTE | 2018-01-20 11:05 | PDOC ---
PROGRESS NOTES Chief Complaint Chief Complaint N/V, diarrhea fever staph bacteremia PNA htn, controlled dm2 controlled ESRD on HD mwf pafib on eliquis h/o left kidney Ca s/p nephrectomy CT showed 4mm lung nodule sepsis rt big toe chronic wound s/p i and d 01/14 Mild left lung base airspace opacities likely atelectasis or infiltrate. History of Present Illness History of Present Illness Seen in dialysis He has no complaints to me Staph on blood culture-ID on board Nausea vomiting diarrhea seems to have resolved Blood pressure and blood sugar otherwise controlled Plan: Follow ID recommendations, follow cultures Continue IV antibiotics Dialysis per renal Seemingly no strong PT needs ROS: no fever, chills, sob or chest pain WEEKEND ENTRY feels ok ,wants to go home wound cx + pseudomonas, MSSA, PROteus. enterococcus + bcx staph aureus, proteus no cough ever Vitals Vitals Vital Signs Date Time Temp Pulse Resp B/P (MAP) Pulse Ox O2 Delivery O2 Flow Rate FiO2 01/20/18 08:00 Room Air 01/20/18 07:00 97.6 63 20 141/69 (93) 97 97.6 01/19/18 08:00 2.0 Physical Exam Physical Exam GENERAL: Sitting on the side of the bed, Alert, smiling HEENT: Pupils are equal and reactive. Oral cavity, pharynx is clear, with some questionable dentition. NECK: Supple, no JVD. LUNGS: Clear to auscultation bilaterally. HEART: S1, S2. ABDOMEN: Obese, soft, nontender EXTREMITIES: No clubbing or cyanosis. Right lower extremity cast has been removed an Rooke boot in place - wound is clean no signs cellulitis. His left upper extremity has AV fistula, without signs of any complications. NEUROLOGIC: He is alert and oriented. He has no focal defects appreciated. SKIN: Warm to touch, without signs of generalized rash, but he does have some scabbing on his right upper extremity. PIV ok General: Alert, Oriented X3, Cooperative, No acute distress Heart: Regular rate Lungs: Clear Abdomen: Soft, No tenderness Extremities: No clubbing, No edema, No tenderness/swelling Skin: No rashes, No breakdown, Other (Pt with right great toe DFU wound. Following cast removal purulent drainage present from wound bed. Wound cx obtained. No surrounding erythema or edema present. Eccymosis present surrounding wound bed extending 0.8cm. Predebridement measurements 0.4x0.6x0.3. Undermining present from 12-12, with max depth of 0.8cm.) Labs LABS Laboratory Tests Test 01/19/18 11:43 01/19/18 16:08 01/19/18 20:23 01/20/18 06:07 Glucose (Fingerstick) 131 mg/dL (70-99) 147 mg/dL (70-99) 179 mg/dL (70-99) White Blood Count 11.0 x10^3/uL (4.0-11.0) Red Blood Count 3.05 x10^6/uL (4.30-5.70) Hemoglobin 10.7 g/dL (13.0-17.5) Hematocrit 29.8 % (39.0-53.0) Mean Corpuscular Volume 98 fL (79-100) Mean Corpuscular Hemoglobin 35 pg (25-35) Mean Corpuscular Hemoglobin Concent 36 g/dL (31-37) Red Cell Distribution Width 13.3 % (11.5-14.5) Platelet Count 134 x10^3/uL (140-400) Sodium Level 140 mmol/L (136-145) Potassium Level 3.6 mmol/L (3.5-5.1) Chloride Level 100 mmol/L (98-107) Carbon Dioxide Level 26 mmol/L (21-32) Anion Gap 14 (6-14) Blood Urea Nitrogen 77 mg/dL (8-26) Creatinine 7.5 mg/dL (0.7-1.3) Estimated GFR (Cockcroft-Gault) 7.2 Glucose Level 107 mg/dL (70-99) Calcium Level 7.9 mg/dL (8.5-10.1) Test 01/20/18 07:34 Glucose (Fingerstick) 122 mg/dL (70-99) Review of Systems Review of Systems A 14 point ROS was completed with the following noted as positive: Other systems reviewed and negative. \CONSTITUTIONAL: No fever or chills EYES: No recent changes SKIN: No rash or itching CARDIOVASCULAR: No chest pain, syncope, palpitations, or edema RESPIRATORY: No SOB or cough GASTROINTESTINAL: No nausea, vomiting or abdominal pain NEUROLOGICAL: No headaches or weakness ENDOCRINE: No cold or heat intolerance GENITOURINARY: No urgency or frequency of urination MUSCULOSKELETAL: No back pain or joint pain LYMPHATICS: No enlarged lymph nodes PSYCHIATRIC: No anxiety or depression Assessment and Plan Assessmemt and Plan Problems Medical Problems: (1) Pneumonia Status: Acute Comment Review of Relevant I have reviewed the following items jennifer (where applicable) has been applied. Labs Laboratory Tests Test 01/18/18 11:44 01/18/18 16:19 01/18/18 20:48 01/19/18 05:05 Glucose (Fingerstick) 142 mg/dL (70-99) 133 mg/dL (70-99) 153 mg/dL (70-99) White Blood Count 11.3 x10^3/uL (4.0-11.0) Red Blood Count 3.09 x10^6/uL (4.30-5.70) Hemoglobin 10.8 g/dL (13.0-17.5) Hematocrit 30.2 % (39.0-53.0) Mean Corpuscular Volume 98 fL (79-100) Mean Corpuscular Hemoglobin 35 pg (25-35) Mean Corpuscular Hemoglobin Concent 36 g/dL (31-37) Red Cell Distribution Width 13.4 % (11.5-14.5) Platelet Count 128 x10^3/uL (140-400) Neutrophils (%) (Auto) 74 % (31-73) Lymphocytes (%) (Auto) 16 % (24-48) Monocytes (%) (Auto) 7 % (0-9) Eosinophils (%) (Auto) 3 % (0-3) Basophils (%) (Auto) 1 % (0-3) Neutrophils # (Auto) 8.4 x10^3uL (1.8-7.7) Lymphocytes # (Auto) 1.8 x10^3/uL (1.0-4.8) Monocytes # (Auto) 0.8 x10^3/uL (0.0-1.1) Eosinophils # (Auto) 0.3 x10^3/uL (0.0-0.7) Basophils # (Auto) 0.1 x10^3/uL (0.0-0.2) Sodium Level 140 mmol/L (136-145) Potassium Level 3.6 mmol/L (3.5-5.1) Chloride Level 100 mmol/L (98-107) Carbon Dioxide Level 27 mmol/L (21-32) Anion Gap 13 (6-14) Blood Urea Nitrogen 63 mg/dL (8-26) Creatinine 6.9 mg/dL (0.7-1.3) Estimated GFR (Cockcroft-Gault) 7.9 Glucose Level 77 mg/dL (70-99) Calcium Level 7.5 mg/dL (8.5-10.1) Phosphorus Level 4.7 mg/dL (2.6-4.7) Albumin 3.1 g/dL (3.4-5.0) Test 01/19/18 07:46 01/19/18 11:43 01/19/18 16:08 01/19/18 20:23 Glucose (Fingerstick) 78 mg/dL (70-99) 131 mg/dL (70-99) 147 mg/dL (70-99) 179 mg/dL (70-99) Test 01/20/18 06:07 01/20/18 07:34 White Blood Count 11.0 x10^3/uL (4.0-11.0) Red Blood Count 3.05 x10^6/uL (4.30-5.70) Hemoglobin 10.7 g/dL (13.0-17.5) Hematocrit 29.8 % (39.0-53.0) Mean Corpuscular Volume 98 fL (79-100) Mean Corpuscular Hemoglobin 35 pg (25-35) Mean Corpuscular Hemoglobin Concent 36 g/dL (31-37) Red Cell Distribution Width 13.3 % (11.5-14.5) Platelet Count 134 x10^3/uL (140-400) Sodium Level 140 mmol/L (136-145) Potassium Level 3.6 mmol/L (3.5-5.1) Chloride Level 100 mmol/L (98-107) Carbon Dioxide Level 26 mmol/L (21-32) Anion Gap 14 (6-14) Blood Urea Nitrogen 77 mg/dL (8-26) Creatinine 7.5 mg/dL (0.7-1.3) Estimated GFR (Cockcroft-Gault) 7.2 Glucose Level 107 mg/dL (70-99) Calcium Level 7.9 mg/dL (8.5-10.1) Glucose (Fingerstick) 122 mg/dL (70-99) Laboratory Tests Test 01/19/18 11:43 01/19/18 16:08 01/19/18 20:23 01/20/18 06:07 Glucose (Fingerstick) 131 mg/dL (70-99) 147 mg/dL (70-99) 179 mg/dL (70-99) White Blood Count 11.0 x10^3/uL (4.0-11.0) Red Blood Count 3.05 x10^6/uL (4.30-5.70) Hemoglobin 10.7 g/dL (13.0-17.5) Hematocrit 29.8 % (39.0-53.0) Mean Corpuscular Volume 98 fL (79-100) Mean Corpuscular Hemoglobin 35 pg (25-35) Mean Corpuscular Hemoglobin Concent 36 g/dL (31-37) Red Cell Distribution Width 13.3 % (11.5-14.5) Platelet Count 134 x10^3/uL (140-400) Sodium Level 140 mmol/L (136-145) Potassium Level 3.6 mmol/L (3.5-5.1) Chloride Level 100 mmol/L (98-107) Carbon Dioxide Level 26 mmol/L (21-32) Anion Gap 14 (6-14) Blood Urea Nitrogen 77 mg/dL (8-26) Creatinine 7.5 mg/dL (0.7-1.3) Estimated GFR (Cockcroft-Gault) 7.2 Glucose Level 107 mg/dL (70-99) Calcium Level 7.9 mg/dL (8.5-10.1) Test 01/20/18 07:34 Glucose (Fingerstick) 122 mg/dL (70-99) Microbiology 01/13/18 Blood Culture - Final, Complete NO GROWTH AFTER 5 DAYS 01/14/18 Anaerobic/Aerobic Culture - Preliminary, Resulted 01/14/18 Anaerobic Culture Result 1 (KATHERINE) - Preliminary, Resulted 01/14/18 Aerobic Culture - Final, Resulted 01/14/18 Aerobic Culture Result 1 (KATHERINE) - Final, Resulted 01/14/18 Aerobic Culture Result 2 (KATHERINE) - Final, Resulted 01/14/18 Aerobic Culture Result 3 (KATHERINE) - Final, Resulted 01/14/18 Aerobic Culture Result 4 (KATHERINE) - Final, Resulted 01/14/18 Antimicrobic Susceptibility - Final, Resulted 01/14/18 Gram Stain - Final, Resulted 01/14/18 Gram Stain Result 1 (KATHERINE) - Final, Resulted 01/14/18 Gram Stain Result 2 (KATHERINE) - Final, Resulted 01/14/18 Gram Stain Result 3 (KATHERINE) - Final, Resulted Medications Current Medications Piperacillin Sod/ Tazobactam Sod (Zosyn Per Pharmacy) 1 each PRN DAILY PRN MC SEE COMMENTS; Start 01/12/18 at 19:15; Stop 01/13/18 at 11:24; Status DC Vancomycin HCl (Vanco Per Pharmacy) 1 each PRN DAILY PRN MC SEE COMMENTS Last administered on 01/19/18at 12:11; Start 01/12/18 at 19:15 Vancomycin HCl 2 gm/Sodium Chloride 500 ml @ 250 mls/hr 1X ONCE IV Last administered on 01/12/18at 20:08; Start 01/12/18 at 20:00; Stop 01/12/18 at 21:59; Status DC Piperacillin Sod/ Tazobactam Sod 2.25 gm/Sodium Chloride 50 ml @ 100 mls/hr 1X ONCE IV Last administered on 01/12/18at 19:31; Start 01/12/18 at 19:30; Stop 01/12/18 at 19:59; Status DC Ondansetron HCl (Zofran) 4 mg PRN Q8HRS PRN IV NAUSEA/VOMITING; Start 01/12/18 at 19:30; Stop 01/13/18 at 19:29; Status DC Piperacillin Sod/ Tazobactam Sod 2.25 gm/Sodium Chloride 50 ml @ 100 mls/hr Q6HRS IV Last administered on 01/13/18at 11:11; Start 01/13/18 at 00:00; Stop 01/13 at 11:24; Status DC Vancomycin HCl (Vancomycin Random Level) 1 each 1X ONCE MC ; Start 01/15/18 at 06:00; Stop 01/15/18 at 06:00; Status DC Acetaminophen (Tylenol) 650 mg PRN Q6HRS PRN PO FEVER; Start 01/13/18 at 08:45 Ondansetron HCl (Zofran) 4 mg PRN Q6HRS PRN IV NAUSEA/VOMITING; Start 01/13/18 at 08:45 Morphine Sulfate (Morphine Sulfate) 2 mg PRN Q2HR PRN IV MODERATE TO SEVERE PAIN; Start 01/13/18 at 08:45 Tramadol HCl (Ultram) 50 mg PRN Q6HRS PRN PO MILD TO MODERATE PAIN; Start at 08:45 Docusate Sodium (Colace) 100 mg PRN DAILY PRN PO CONSTIPATION Last administered on 01/18/18 08:12; Start 01/13/18 at 08:45 Allopurinol (Zyloprim) 100 mg DAILY PO Last administered on 01/20/18 08:13; Start 01/13/18 at 09:00 Apixaban (Eliquis) 5 mg BID PO Last administered on 01/20/18 08:13; Start 01/13 at 09:00 Atorvastatin Calcium (Lipitor) 20 mg HS PO Last administered on 01/19/18 20:47 ; Start 01/13/18 at 21:00 Carvedilol (Coreg) 6.25 mg BIDWMEALS PO Last administered on 01/19/18 16:51; Start 01/13/18 at 09:00 Cinacalcet (Sensipar) 60 mg DAILY PO Last administered on 01/20/18 08:12; Start 01/13/18 at 09:00 Ferrous Sulfate (Feosol) 325 mg TID PO Last administered on 01/20/18 08:13; Start 01/13/18 at 09:00 Furosemide (Lasix) 40 mg BID92 PO Last administered on 01/19/18 13:32; Start at 09:00 Sevelamer Carbonate (Renvela) 2,400 mg TIDWMEALS PO Last administered on 08:12; Start 01/13/18 at 09:00 Insulin Glargine (Lantus) 20 units QHS SQ Last administered on 01/18/18 20:55; Start 01/13/18 at 21:00 Atorvastatin Calcium (Lipitor) 5 mg QHS PO ; Start 01/13/18 at 21:00; Status Cancel Insulin Human Lispro (HumaLOG) 0-9 UNITS TIDWMEALS SQ Last administered on 17:40; Start 01/13/18 at 12:00 Dextrose (Dextrose 50%-Water Syringe) 12.5 gm PRN Q15MIN PRN IV SEE COMMENTS; Start 01/13/18 at 08:45 Piperacillin Sod/ Tazobactam Sod 2.25 gm/Sodium Chloride 50 ml @ 100 mls/hr Q8HRS IV Last administered on 01/18/18at 06:08; Start 01/13/18 at 14:00; Stop 01/18 at 07:58; Status DC Lactobacillus Rhamnosus (Culturelle) 1 cap BID PO Last administered on at 08:13; Start 01/13/18 at 21:00 Sodium Chloride 1,000 ml @ 1,000 mls/hr Q1H PRN IV hypotension; Start 01/13/18 at 12:00; Stop 01/13/18 at 17:59; Status DC Sodium Chloride 1,000 ml @ 400 mls/hr Q2H30M PRN IV PATENCY; Start 01/13/18 at 12:00; Stop 01/13/18 at 23:59; Status DC Info (PHARMACY MONITORING -- do not chart) 1 each PRN DAILY PRN MC SEE COMMENTS ; Start 01/13/18 at 15:30; Stop 01/15/18 at 14:53; Status DC Info (PHARMACY MONITORING -- do not chart) 1 each PRN DAILY PRN MC SEE COMMENTS ; Start 01/13/18 at 15:30; Status UNV Albuterol Sulfate (Ventolin Neb Soln) 2.5 mg PRN Q4HRS PRN NEB SHORTNESS OF BREATH; Start 01/13/18 at 16:45 Ascorbic Acid (Vitamin C) 500 mg DAILY PO Last administered on 01/20/18at 08:13 ; Start 01/14/18 at 09:30 Vitamin B Complex/ Vitamin C (Mindy-Maureen) 1 tab DAILY PO Last administered on 02/27at 08:12; Start 01/14/18 at 09:30 Info (Anti-Coagulation Monitoring By Pharmacy) 1 each PRN DAILY PRN MC SEE COMMENTS Last administered on 01/19/18at 12:07; Start 01/14/18 at 11:45 Vancomycin HCl 500 mg/Sodium Chloride 100 ml @ 100 mls/hr ONCE ONCE IV Last administered on 01/14/18at 16:32; Start 01/14/18 at 15:00; Stop 01/14/18 at 15:59; Status DC Vancomycin HCl 500 mg/Sodium Chloride 100 ml @ 100 mls/hr QMWF IV Last administered on 01/17/18at 15:40; Start 01/15/18 at 16:00 Sodium Chloride 1,000 ml @ 1,000 mls/hr Q1H PRN IV hypotension; Start 01/15/18 at 06:30; Stop 01/15/18 at 12:29; Status DC Diphenhydramine HCl (Benadryl) 25 mg 1X PRN PRN IV ITCHING; Start 01/15/18 at 06 :30; Stop 01/16/18 at 06:29; Status DC Diphenhydramine HCl (Benadryl) 25 mg 1X PRN PRN IV ITCHING; Start 01/15/18 at 06 :30; Stop 01/16/18 at 06:29; Status DC Sodium Chloride 1,000 ml @ 400 mls/hr Q2H30M PRN IV PATENCY; Start 01/15/18 at 06:30; Stop 01/15/18 at 18:29; Status DC Info (PHARMACY MONITORING -- do not chart) 1 each PRN DAILY PRN MC SEE COMMENTS ; Start 01/15/18 at 06:30; Stop 01/17/18 at 15:04; Status DC Sodium Chloride 1,000 ml @ 1,000 mls/hr Q1H PRN IV hypotension; Start 01/17/18 at 08:36; Stop 01/17/18 at 14:35; Status DC Albumin Human 200 ml @ 200 mls/hr 1X PRN PRN IV Hypotension; Start 01/17/18 at 08:45; Stop 01/17/18 at 14:44; Status DC Acetaminophen (Tylenol) 500 mg 1X PRN PRN PO MILD PAIN / TEMP; Start 01/17/18 at 08:45; Stop 01/18/18 at 08:44; Status DC Diphenhydramine HCl (Benadryl) 25 mg 1X PRN PRN IV ITCHING; Start 01/17/18 at 08 :45; Stop 01/18/18 at 08:44; Status DC Diphenhydramine HCl (Benadryl) 25 mg 1X PRN PRN IV ITCHING; Start 01/17/18 at 08 :45; Stop 01/18/18 at 08:44; Status DC Labetalol HCl (Normodyne Iv Push) 10 mg PRN Q1HR PRN IVP SBP > 180; Start at 08:45; Stop 01/18/18 at 08:44; Status DC Clonidine HCl (Catapres) 0.1 mg 1X PRN PRN PO SBP > 180; Start 01/17/18 at 08:45 ; Stop 01/18/18 at 08:44; Status DC Sodium Chloride 1,000 ml @ 400 mls/hr Q2H30M PRN IV PATENCY; Start 01/17/18 at 08:36; Stop 01/17/18 at 20:35; Status DC Info (PHARMACY MONITORING -- do not chart) 1 each PRN DAILY PRN MC SEE COMMENTS ; Start 01/17/18 at 08:45; Status UNV Info (PHARMACY MONITORING -- do not chart) 1 each PRN DAILY PRN MC SEE COMMENTS ; Start 01/17/18 at 08:45 Ceftriaxone Sodium 2 gm/ Dextrose 100 ml @ 200 mls/hr Q24H IV ; Start 01/18/18 at 08:00; Status UNV Ceftriaxone Sodium (Rocephin) 2 gm Q24H IVP Last administered on 01/19/18at 08:23 ; Start 01/18/18 at 09:00; Stop 01/19/18 at 12:26; Status DC Cefepime HCl 1 gm/ Dextrose 50 ml @ 100 mls/hr DAILY IV ; Start 01/20/18 at 09: 00; Status UNV Cefepime HCl (Maxipime) 1 gm Q24H IVP Last administered on 01/19/18at 13:32; Start 01/19/18 at 13:00 Sodium Chloride 1,000 ml @ 1,000 mls/hr Q1H PRN IV hypotension; Start 01/20/18 at 09:02; Stop 01/20/18 at 15:01 Acetaminophen (Tylenol) 500 mg 1X PRN PRN PO MILD PAIN / TEMP; Start 01/20/18 at 09:15; Stop 01/21/18 at 09:14 Diphenhydramine HCl (Benadryl) 25 mg 1X PRN PRN IV ITCHING; Start 01/20/18 at 09:15; Stop 01/21/18 at 09:14 Diphenhydramine HCl (Benadryl) 25 mg 1X PRN PRN IV ITCHING; Start 01/20/18 at 09:15; Stop 01/21/18 at 09:14 Sodium Chloride 1,000 ml @ 400 mls/hr Q2H30M PRN IV PATENCY; Start 01/20/18 at 09:02; Stop 01/20/18 at 21:01 Info (PHARMACY MONITORING -- do not chart) 1 each PRN DAILY PRN MC SEE COMMENTS ; Start 01/20/18 at 09:30 Sodium Chloride 1,000 ml @ 1,000 mls/hr Q1H PRN IV hypotension; Start 01/20/18 at 09:19; Stop 01/20/18 at 15:18 Sodium Chloride 1,000 ml @ 400 mls/hr Q2H30M PRN IV PATENCY; Start 01/20/18 at 09:19; Stop 01/20/18 at 21:18 Info (PHARMACY MONITORING -- do not chart) 1 each PRN DAILY PRN MC SEE COMMENTS ; Start 01/20/18 at 09:30 Active Scripts Active Culturelle (Lactobacillus Rhamnosus Gg) 1 Each Cap.sprink 1 Cap PO BID Cefpodoxime Proxetil 100 Mg Tablet 200 Mg PO BID Allopurinol 100 Mg Tablet 100 Mg PO DAILY Novolog Flexpen (Insulin Aspart) 100 Unit/1 Ml Insuln.pen 0 Units SQ TIDWMEALS 30 Days Levemir Flextouch (Insulin Detemir) 100 Unit/1 Ml Insuln.pen 20 Units SQ QHS 30 Days Reported Renvela (Sevelamer Carbonate) 800 Mg Tablet 3 Tab PO TID Entresto 49 mg-51 mg Tablet (Sacubitril/Valsartan) 1 Each Tablet 1 Each PO Lasix (Furosemide) 40 Mg Tablet 40 Mg PO BID Sensipar (Cinacalcet Hcl) 30 Mg Tablet 60 Mg PO DAILY Eliquis (Apixaban) 5 Mg Tablet 5 Mg PO BID Ferrous Sulfate 325 Mg Tablet 1 Tab PO TID Coreg (Carvedilol) 6.25 Mg Tablet 1 Tab PO BID Atorvastatin Calcium 20 Mg Tablet 20 Mg PO HS Pravastatin Sodium 20 Mg Tablet 20 Mg PO DAILY Vitals/I & O Vital Sign - Last 24 Hours 01/19/18 01/19/18 01/19/18 01/19/18 14:36 15:00 16:51 19:00 Temp 97.6 97.7 97.6 97.7 Pulse 53 53 61 Resp 20 16 B/P (MAP) 144/62 (89) 144/62 136/55 (82) Pulse Ox 100 100 97 O2 Delivery Room Air Room Air Room Air 01/19/18 01/19/18 01/19/18 01/20/18 19:58 20:00 23:00 07:00 Temp 98.1 97.6 98.1 97.6 Pulse 56 63 Resp 18 20 B/P (MAP) 127/52 (77) 141/69 (93) Pulse Ox 99 97 O2 Delivery Room Air Room Air Room Air Room Air 01/20/18 08:00 O2 Delivery Room Air Intake and Output 01/19/18 01/19/18 01/20/18 15:00 23:00 07:00 Intake Total 1120 ml Balance 1120 ml VICTOR M PINA MD Jan 20, 2018 11:05
[2018-01-20 15:00] VITALS: BP 146/52
[2018-01-20] MEDS: CEFEPIME HCL IV Push 1 GM VIAL. IVP SCH (15:17)
[2018-01-20] MEDS: VANCOMYCIN 500 MG in IV NORMAL SALINE 100ML 100 ML IV SCH (16:05)
[2018-01-20] MEDS: ANTI-COAG MONITOR BY PHARMACY. MC PRN (16:11)
[2018-01-20 19:00] VITALS: BP 123/65
[2018-01-20] MEDS: ATORVASTATIN CALCIUM 20 MG TABLET PO SCH (20:17)
[2018-01-20] MEDS: INSULIN GLARGINE 300 UNITS/3 ML INSULN.PEN. SQ SCH (20:20)
[2018-01-20 23:00] VITALS: BP 111/46
[2018-01-21 03:00] VITALS: BP 122/69
[2018-01-21 07:00] VITALS: BP 139/70
[2018-01-21 08:00] LABS: BASO # 0.1 x10^3/uL (0.0-0.2); BASO % 1 % (0-3); EOS # 0.2 x10^3/uL (0.0-0.7); EOS % 2 % (0-3); HEMATOCRIT 33.1 % (39.0-53.0); HEMOGLOBIN 11.6 g/dL (13.0-17.5); LYMPH # 1.5 x10^3/uL (1.0-4.8); LYMPH % 14 % (24-48); MEAN CORPUSCULAR HEMOGLOBIN 35 pg (25-35); MEAN CORPUSCULAR HGB CONC 35 g/dL (31-37); MEAN CORPUSCULAR VOLUME 99 fL (79-100); MONO # 0.7 x10^3/uL (0.0-1.1); MONO % 6 % (0-9); NEUT # 8.7 x10^3uL (1.8-7.7); NEUT % 78 % (31-73); PLATELET COUNT 157 x10^3/uL (140-400); RED BLOOD COUNT 3.35 x10^6/uL (4.30-5.70); RED CELL DISTRIBUTION WIDTH 13.6 % (11.5-14.5); WHITE BLOOD COUNT 11.3 x10^3/uL (4.0-11.0)
[2018-01-21] MEDS: INSULIN LISPRO 300 UNITS/3 ML INSULN.PEN. SQ SCH ×2 (08:00→12:00)
[2018-01-21 08:25] LABS: CALCIUM 8.5 mg/dL (8.5-10.1); CREATININE 5.3 mg/dL (0.7-1.3); GFR 10.8; POTASSIUM 3.7 mmol/L (3.5-5.1)
[2018-01-21] MEDS: FERROUS SULFATE 325 MG TABLET. PO SCH ×2 (08:26→14:27)
[2018-01-21] MEDS: LACTOBACILLUS RHAMNOSUS GG 1 CAPSULE. PO SCH (08:26)
[2018-01-21] MEDS: ASCORBIC ACID 500 MG TABLET PO SCH (08:26)
[2018-01-21] MEDS: FUROSEMIDE 40 MG TABLET. PO SCH ×2 (08:26→14:27)
[2018-01-21] MEDS: ALLOPURINOL 100 MG TABLET. PO SCH (08:26)
[2018-01-21] MEDS: CINACALCET HCL 30 MG TABLET PO SCH (08:26)
[2018-01-21] MEDS: SEVELAMER CARBONATE 800 MG TABLET. PO SCH ×2 (08:26→12:54)
[2018-01-21] MEDS: FOLIC/VIT B COMP W-C (RENAL) TABLET. PO SCH (08:26)
[2018-01-21] MEDS: APIXABAN 5 MG TABLET. PO SCH (08:26)
[2018-01-21] MEDS: CARVEDILOL 6.25 MG TABLET. PO SCH (08:27)
--- NOTE | 2018-01-21 10:59 | PDOC ---
PULMONARY PROGRESS NOTES Subjective PT NOT SOA READY FOR D/C Vitals Vital Signs Date Time Temp Pulse Resp B/P (MAP) Pulse Ox O2 Delivery O2 Flow Rate FiO2 01/21/18 08:27 63 122/69 01/21/18 08:00 Room Air 01/21/18 07:00 97.8 20 99 97.8 ROS: No Nausea General: Alert, No acute distress HEENT: Other Lungs: Clear Cardiovascular: S1, S2 Abdomen: Soft, Non-tender Neuro Exam: Alert, Oriented Extremities: Other (right leg cast) Skin: Warm Labs Laboratory Tests Test 01/19/18 11:43 01/19/18 16:08 01/19/18 20:23 01/20/18 06:07 Glucose (Fingerstick) 131 mg/dL (70-99) 147 mg/dL (70-99) 179 mg/dL (70-99) White Blood Count 11.0 x10^3/uL (4.0-11.0) Red Blood Count 3.05 x10^6/uL (4.30-5.70) Hemoglobin 10.7 g/dL (13.0-17.5) Hematocrit 29.8 % (39.0-53.0) Mean Corpuscular Volume 98 fL (79-100) Mean Corpuscular Hemoglobin 35 pg (25-35) Mean Corpuscular Hemoglobin Concent 36 g/dL (31-37) Red Cell Distribution Width 13.3 % (11.5-14.5) Platelet Count 134 x10^3/uL (140-400) Sodium Level 140 mmol/L (136-145) Potassium Level 3.6 mmol/L (3.5-5.1) Chloride Level 100 mmol/L (98-107) Carbon Dioxide Level 26 mmol/L (21-32) Anion Gap 14 (6-14) Blood Urea Nitrogen 77 mg/dL (8-26) Creatinine 7.5 mg/dL (0.7-1.3) Estimated GFR (Cockcroft-Gault) 7.2 Glucose Level 107 mg/dL (70-99) Calcium Level 7.9 mg/dL (8.5-10.1) Test 01/20/18 07:34 01/20/18 15:18 01/20/18 16:58 01/20/18 20:16 Glucose (Fingerstick) 122 mg/dL (70-99) 82 mg/dL (70-99) 202 mg/dL (70-99) 251 mg/dL (70-99) Test 01/21/18 07:00 01/21/18 08:22 White Blood Count 11.3 x10^3/uL (4.0-11.0) Red Blood Count 3.35 x10^6/uL (4.30-5.70) Hemoglobin 11.6 g/dL (13.0-17.5) Hematocrit 33.1 % (39.0-53.0) Mean Corpuscular Volume 99 fL (79-100) Mean Corpuscular Hemoglobin 35 pg (25-35) Mean Corpuscular Hemoglobin Concent 35 g/dL (31-37) Red Cell Distribution Width 13.6 % (11.5-14.5) Platelet Count 157 x10^3/uL (140-400) Neutrophils (%) (Auto) 78 % (31-73) Lymphocytes (%) (Auto) 14 % (24-48) Monocytes (%) (Auto) 6 % (0-9) Eosinophils (%) (Auto) 2 % (0-3) Basophils (%) (Auto) 1 % (0-3) Neutrophils # (Auto) 8.7 x10^3uL (1.8-7.7) Lymphocytes # (Auto) 1.5 x10^3/uL (1.0-4.8) Monocytes # (Auto) 0.7 x10^3/uL (0.0-1.1) Eosinophils # (Auto) 0.2 x10^3/uL (0.0-0.7) Basophils # (Auto) 0.1 x10^3/uL (0.0-0.2) Sodium Level 143 mmol/L (136-145) Potassium Level 3.7 mmol/L (3.5-5.1) Chloride Level 101 mmol/L (98-107) Carbon Dioxide Level 30 mmol/L (21-32) Anion Gap 12 (6-14) Blood Urea Nitrogen 48 mg/dL (8-26) Creatinine 5.3 mg/dL (0.7-1.3) Estimated GFR (Cockcroft-Gault) 10.8 Glucose Level 111 mg/dL (70-99) Calcium Level 8.5 mg/dL (8.5-10.1) Glucose (Fingerstick) 139 mg/dL (70-99) Laboratory Tests Test 01/20/18 15:18 01/20/18 16:58 01/20/18 20:16 01/21/18 07:00 Glucose (Fingerstick) 82 mg/dL (70-99) 202 mg/dL (70-99) 251 mg/dL (70-99) White Blood Count 11.3 x10^3/uL (4.0-11.0) Red Blood Count 3.35 x10^6/uL (4.30-5.70) Hemoglobin 11.6 g/dL (13.0-17.5) Hematocrit 33.1 % (39.0-53.0) Mean Corpuscular Volume 99 fL (79-100) Mean Corpuscular Hemoglobin 35 pg (25-35) Mean Corpuscular Hemoglobin Concent 35 g/dL (31-37) Red Cell Distribution Width 13.6 % (11.5-14.5) Platelet Count 157 x10^3/uL (140-400) Neutrophils (%) (Auto) 78 % (31-73) Lymphocytes (%) (Auto) 14 % (24-48) Monocytes (%) (Auto) 6 % (0-9) Eosinophils (%) (Auto) 2 % (0-3) Basophils (%) (Auto) 1 % (0-3) Neutrophils # (Auto) 8.7 x10^3uL (1.8-7.7) Lymphocytes # (Auto) 1.5 x10^3/uL (1.0-4.8) Monocytes # (Auto) 0.7 x10^3/uL (0.0-1.1) Eosinophils # (Auto) 0.2 x10^3/uL (0.0-0.7) Basophils # (Auto) 0.1 x10^3/uL (0.0-0.2) Sodium Level 143 mmol/L (136-145) Potassium Level 3.7 mmol/L (3.5-5.1) Chloride Level 101 mmol/L (98-107) Carbon Dioxide Level 30 mmol/L (21-32) Anion Gap 12 (6-14) Blood Urea Nitrogen 48 mg/dL (8-26) Creatinine 5.3 mg/dL (0.7-1.3) Estimated GFR (Cockcroft-Gault) 10.8 Glucose Level 111 mg/dL (70-99) Calcium Level 8.5 mg/dL (8.5-10.1) Test 01/21/18 08:22 Glucose (Fingerstick) 139 mg/dL (70-99) Medications Active Scripts Medications Dose Route/Sig Max Daily Dose Days Date Category Culturelle (Lactobacillus Rhamnosus Gg) 1 Each Cap.sprink 1 Cap PO BID 06/06/17 Rx Cefpodoxime Proxetil 100 Mg Tablet 200 Mg PO BID 06/06/17 Rx Allopurinol 100 Mg Tablet 100 Mg PO DAILY 06/06/17 Rx Renvela (Sevelamer Carbonate) 800 Mg Tablet 3 Tab PO TID 06/03/17 Reported Entresto 49 mg-51 mg Tablet (Sacubitril/Valsartan) 1 Each Tablet 1 Each PO 06/03/17 Reported Lasix (Furosemide) 40 Mg Tablet 40 Mg PO BID 06/03/17 Reported Sensipar (Cinacalcet Hcl) 30 Mg Tablet 60 Mg PO DAILY 06/03/17 Reported Eliquis (Apixaban) 5 Mg Tablet 5 Mg PO BID 06/03/17 Reported Ferrous Sulfate 325 Mg Tablet 1 Tab PO TID 06/03/17 Reported Coreg (Carvedilol) 6.25 Mg Tablet 1 Tab PO BID 06/03/17 Reported Atorvastatin Calcium 20 Mg Tablet 20 Mg PO HS 06/03/17 Reported Novolog Flexpen (Insulin Aspart) 100 Unit/1 Ml Insuln.pen 0 Units SQ TIDWMEALS 30 01/12/17 Rx Levemir Flextouch (Insulin Detemir) 100 Unit/1 Ml Insuln.pen 20 Units SQ QHS 30 01/12/17 Rx Pravastatin Sodium 20 Mg Tablet 20 Mg PO DAILY 06/26/13 Reported Impression . 1. Abnormal CT chest revealing mild airspace disease LLL with suspected pneumonia. 2. A 4 mm left lingular pulmonary nodule. 3. Tobacco dependence, in remission, quit in 1979. 4. Bacteremia 5. Possible sepsis. 7. End-stage renal disease. 8. Chronic toe wound on the right. 9. History of Enterobacter sepsis. 10. Cardiomyopathy with ejection fraction of 35%. 11. Prior history of cerebrovascular accident. 12. History of gout, diabetes and hypertension. 13 PULMONARY NODULE Plan . REPEAT CT IN 6 MONTHS OK TO D/C ANTIBX PER TRINH MYERS MD Jan 21, 2018 10:59
[2018-01-21 11:00] VITALS: BP 149/70
--- NOTE | 2018-01-21 11:11 | PDOC ---
Renal-Progress Notes Subjective Notes Notes NONE History of Present Illness Hx of present illness STABLE Vitals Vitals Vital Signs Date Time Temp Pulse Resp B/P (MAP) Pulse Ox O2 Delivery O2 Flow Rate FiO2 01/21/18 08:27 63 122/69 01/21/18 08:00 Room Air 01/21/18 07:00 97.8 20 99 97.8 Weight Weight [ ] I.O. Intake and Output Intake and Output 01/21/18 07:00 Intake Total 1700 ml Output Total 400 ml Balance 1300 ml Intake Oral 1600 ml IV Total 100 ml Output Urine Total 400 ml Labs Labs Laboratory Tests Test 01/20/18 15:18 01/20/18 16:58 01/20/18 20:16 01/21/18 07:00 Glucose (Fingerstick) 82 mg/dL (70-99) 202 mg/dL (70-99) 251 mg/dL (70-99) White Blood Count 11.3 x10^3/uL (4.0-11.0) Red Blood Count 3.35 x10^6/uL (4.30-5.70) Hemoglobin 11.6 g/dL (13.0-17.5) Hematocrit 33.1 % (39.0-53.0) Mean Corpuscular Volume 99 fL (79-100) Mean Corpuscular Hemoglobin 35 pg (25-35) Mean Corpuscular Hemoglobin Concent 35 g/dL (31-37) Red Cell Distribution Width 13.6 % (11.5-14.5) Platelet Count 157 x10^3/uL (140-400) Neutrophils (%) (Auto) 78 % (31-73) Lymphocytes (%) (Auto) 14 % (24-48) Monocytes (%) (Auto) 6 % (0-9) Eosinophils (%) (Auto) 2 % (0-3) Basophils (%) (Auto) 1 % (0-3) Neutrophils # (Auto) 8.7 x10^3uL (1.8-7.7) Lymphocytes # (Auto) 1.5 x10^3/uL (1.0-4.8) Monocytes # (Auto) 0.7 x10^3/uL (0.0-1.1) Eosinophils # (Auto) 0.2 x10^3/uL (0.0-0.7) Basophils # (Auto) 0.1 x10^3/uL (0.0-0.2) Sodium Level 143 mmol/L (136-145) Potassium Level 3.7 mmol/L (3.5-5.1) Chloride Level 101 mmol/L (98-107) Carbon Dioxide Level 30 mmol/L (21-32) Anion Gap 12 (6-14) Blood Urea Nitrogen 48 mg/dL (8-26) Creatinine 5.3 mg/dL (0.7-1.3) Estimated GFR (Cockcroft-Gault) 10.8 Glucose Level 111 mg/dL (70-99) Calcium Level 8.5 mg/dL (8.5-10.1) Test 01/21/18 08:22 Glucose (Fingerstick) 139 mg/dL (70-99) Micro Micro Microbiology 01/13/18 Blood Culture - Final, Complete NO GROWTH AFTER 5 DAYS 01/14/18 Anaerobic/Aerobic Culture - Final, Complete 01/14/18 Anaerobic Culture Result 1 (KATHERINE) - Final, Complete 01/14/18 Aerobic Culture - Final, Complete 01/14/18 Aerobic Culture Result 1 (KATHERINE) - Final, Complete 01/14/18 Aerobic Culture Result 2 (KATHERINE) - Final, Complete 01/14/18 Aerobic Culture Result 3 (KATHERINE) - Final, Complete 01/14/18 Aerobic Culture Result 4 (KATHERINE) - Final, Complete 01/14/18 Antimicrobic Susceptibility - Final, Complete 01/14/18 Gram Stain - Final, Complete 01/14/18 Gram Stain Result 1 (KATHERINE) - Final, Complete 01/14/18 Gram Stain Result 2 (KATHERINE) - Final, Complete 01/14/18 Gram Stain Result 3 (KATHERINE) - Final, Complete Review of Systems Constitutional: yes: alert, oriented Ears/Nose/Throat: Yes: no symptom reported Eyes: Yes: no symptom reported Pulmonary: Yes no symptom reported Cardiovascular: Yes no symptom reported Gastrointestional: Yes: no symptom reported Musculoskeletal: Yes: no symptom reported Skin: Yes no symptom reported Psychiatric/Neurological: Yes: no symptom reported Endocrine: Yes: no symptom reported Physical Exam General Appearance: no apparent distress Respiratory: bilateral CTA Heart: S1S2 Abdomen: soft, bowel sounds present Genitourinary: bladder flat Extremities: pulses present Neurology: alert, oriented Assessment Assessment IMP ESRD ANEMIA ?SEPSIS PLAN HD TOMORROW ANTIBIOTICS HAVE CALLED IN ORDER AT [facility] FOR [facility] OK TO D/C SIGIFREDO CLARK MD Jan 21, 2018 11:11
--- NOTE | 2018-01-21 11:20 | PDOC ---
Infectious Disease Note Subjective Subjective Comfortable, denies pain Hoping to go home soon No F/C/S/N/V/D ROS ROS no n/v/d/sob Vital Sign Vital Signs Vital Signs Date Time Temp Pulse Resp B/P (MAP) Pulse Ox O2 Delivery O2 Flow Rate FiO2 01/21/18 08:27 63 122/69 01/21/18 08:00 Room Air 01/21/18 07:00 97.8 20 99 97.8 Physical Exam PHYSICAL EXAM GENERAL: Sitting on the side of the bed, Alert, smiling HEENT: Pupils are equal and reactive. Oral cavity, pharynx is clear, with some questionable dentition. NECK: Supple, no JVD. LUNGS: Clear to auscultation bilaterally. HEART: S1, S2. ABDOMEN: Obese, soft, nontender EXTREMITIES: No clubbing or cyanosis. Right lower extremity cast has been removed an Rooke boot in place - wound is clean no signs cellulitis. His left upper extremity has AV fistula, without signs of any complications. NEUROLOGIC: He is alert and oriented. He has no focal defects appreciated. SKIN: Warm to touch, without signs of generalized rash, but he does have some scabbing on his right upper extremity. PIV ok Labs Lab Laboratory Tests Test 01/20/18 15:18 01/20/18 16:58 01/20/18 20:16 01/21/18 07:00 Glucose (Fingerstick) 82 mg/dL (70-99) 202 mg/dL (70-99) 251 mg/dL (70-99) White Blood Count 11.3 x10^3/uL (4.0-11.0) Red Blood Count 3.35 x10^6/uL (4.30-5.70) Hemoglobin 11.6 g/dL (13.0-17.5) Hematocrit 33.1 % (39.0-53.0) Mean Corpuscular Volume 99 fL (79-100) Mean Corpuscular Hemoglobin 35 pg (25-35) Mean Corpuscular Hemoglobin Concent 35 g/dL (31-37) Red Cell Distribution Width 13.6 % (11.5-14.5) Platelet Count 157 x10^3/uL (140-400) Neutrophils (%) (Auto) 78 % (31-73) Lymphocytes (%) (Auto) 14 % (24-48) Monocytes (%) (Auto) 6 % (0-9) Eosinophils (%) (Auto) 2 % (0-3) Basophils (%) (Auto) 1 % (0-3) Neutrophils # (Auto) 8.7 x10^3uL (1.8-7.7) Lymphocytes # (Auto) 1.5 x10^3/uL (1.0-4.8) Monocytes # (Auto) 0.7 x10^3/uL (0.0-1.1) Eosinophils # (Auto) 0.2 x10^3/uL (0.0-0.7) Basophils # (Auto) 0.1 x10^3/uL (0.0-0.2) Sodium Level 143 mmol/L (136-145) Potassium Level 3.7 mmol/L (3.5-5.1) Chloride Level 101 mmol/L (98-107) Carbon Dioxide Level 30 mmol/L (21-32) Anion Gap 12 (6-14) Blood Urea Nitrogen 48 mg/dL (8-26) Creatinine 5.3 mg/dL (0.7-1.3) Estimated GFR (Cockcroft-Gault) 10.8 Glucose Level 111 mg/dL (70-99) Calcium Level 8.5 mg/dL (8.5-10.1) Test 01/21/18 08:22 Glucose (Fingerstick) 139 mg/dL (70-99) Micro Objective Assessment MSSA and proteus bacteremia (2 of 2 bottles) from 01/12. Repeat BC 01/13 NGTD. echo neg Wound right toe,,, superficial and no sign of infection, with growth of MSSA, proteus, enterococcus and PSA (late growth) from 01/14 Leukocytosis CKD on HD M/W/F S/p cat scratches to right hand/arm - no gross cellulitis N/V -better H/o Enterobacter sepsis December 2016 Plan Plan of Care Probiotics Supportive care cefazolin 2gm M and W and Saturday will need 3 gm with HD, for 4 to 6 wks and po cipro for 10 days f/u with us in 2 wks NIXON SIERRA MD Jan 21, 2018 11:20
[2018-01-21] MEDS ORDERED: FOLI0.8T21 PO (13:06)
--- NOTE | 2018-01-21 13:09 | PDOC3 ---
Discharge Summary Visit Information Date of Admission: Jan 12, 2018 Date of Discharge: Jan 21, 2018 Admitting Diagnosis Comment: n/V, diarrhea fever staph bacteremia PNA htn, controlled dm2 controlled ESRD on HD mwf pafib on eliquis h/o left kidney Ca s/p nephrectomy CT showed 4mm lung nodule sepsis rt big toe chronic wound s/p i and d 01/14 Mild left lung base airspace opacities likely atelectasis or infiltrate. Final Diagnosis Problems Medical Problems: (1) Pneumonia Status: Acute Brief Hospital Course Allergies Allergies Coded Allergies Type Severity Reaction Last Updated Verified nut - unspecified Allergy Intermediate 01/13/18 Yes lisinopril Adverse Reaction Intermediate Cough 12/27/16 Yes Vital Signs Vital Signs Date Time Temp Pulse Resp B/P (MAP) Pulse Ox O2 Delivery O2 Flow Rate FiO2 01/21/18 11:00 97.6 64 24 149/70 (96) 99 Room Air 97.6 Lab Results Laboratory Tests Test 01/19/18 16:08 01/19/18 20:23 01/20/18 06:07 01/20/18 07:34 Glucose (Fingerstick) 147 mg/dL (70-99) 179 mg/dL (70-99) 122 mg/dL (70-99) White Blood Count 11.0 x10^3/uL (4.0-11.0) Red Blood Count 3.05 x10^6/uL (4.30-5.70) Hemoglobin 10.7 g/dL (13.0-17.5) Hematocrit 29.8 % (39.0-53.0) Mean Corpuscular Volume 98 fL (79-100) Mean Corpuscular Hemoglobin 35 pg (25-35) Mean Corpuscular Hemoglobin Concent 36 g/dL (31-37) Red Cell Distribution Width 13.3 % (11.5-14.5) Platelet Count 134 x10^3/uL (140-400) Sodium Level 140 mmol/L (136-145) Potassium Level 3.6 mmol/L (3.5-5.1) Chloride Level 100 mmol/L (98-107) Carbon Dioxide Level 26 mmol/L (21-32) Anion Gap 14 (6-14) Blood Urea Nitrogen 77 mg/dL (8-26) Creatinine 7.5 mg/dL (0.7-1.3) Estimated GFR (Cockcroft-Gault) 7.2 Glucose Level 107 mg/dL (70-99) Calcium Level 7.9 mg/dL (8.5-10.1) Test 01/20/18 15:18 01/20/18 16:58 01/20/18 20:16 01/21/18 07:00 Glucose (Fingerstick) 82 mg/dL (70-99) 202 mg/dL (70-99) 251 mg/dL (70-99) White Blood Count 11.3 x10^3/uL (4.0-11.0) Red Blood Count 3.35 x10^6/uL (4.30-5.70) Hemoglobin 11.6 g/dL (13.0-17.5) Hematocrit 33.1 % (39.0-53.0) Mean Corpuscular Volume 99 fL (79-100) Mean Corpuscular Hemoglobin 35 pg (25-35) Mean Corpuscular Hemoglobin Concent 35 g/dL (31-37) Red Cell Distribution Width 13.6 % (11.5-14.5) Platelet Count 157 x10^3/uL (140-400) Neutrophils (%) (Auto) 78 % (31-73) Lymphocytes (%) (Auto) 14 % (24-48) Monocytes (%) (Auto) 6 % (0-9) Eosinophils (%) (Auto) 2 % (0-3) Basophils (%) (Auto) 1 % (0-3) Neutrophils # (Auto) 8.7 x10^3uL (1.8-7.7) Lymphocytes # (Auto) 1.5 x10^3/uL (1.0-4.8) Monocytes # (Auto) 0.7 x10^3/uL (0.0-1.1) Eosinophils # (Auto) 0.2 x10^3/uL (0.0-0.7) Basophils # (Auto) 0.1 x10^3/uL (0.0-0.2) Sodium Level 143 mmol/L (136-145) Potassium Level 3.7 mmol/L (3.5-5.1) Chloride Level 101 mmol/L (98-107) Carbon Dioxide Level 30 mmol/L (21-32) Anion Gap 12 (6-14) Blood Urea Nitrogen 48 mg/dL (8-26) Creatinine 5.3 mg/dL (0.7-1.3) Estimated GFR (Cockcroft-Gault) 10.8 Glucose Level 111 mg/dL (70-99) Calcium Level 8.5 mg/dL (8.5-10.1) Test 01/21/18 08:22 01/21/18 11:53 Glucose (Fingerstick) 139 mg/dL (70-99) 123 mg/dL (70-99) Laboratory Tests Test 01/20/18 15:18 01/20/18 16:58 01/20/18 20:16 01/21/18 07:00 Glucose (Fingerstick) 82 mg/dL (70-99) 202 mg/dL (70-99) 251 mg/dL (70-99) White Blood Count 11.3 x10^3/uL (4.0-11.0) Red Blood Count 3.35 x10^6/uL (4.30-5.70) Hemoglobin 11.6 g/dL (13.0-17.5) Hematocrit 33.1 % (39.0-53.0) Mean Corpuscular Volume 99 fL (79-100) Mean Corpuscular Hemoglobin 35 pg (25-35) Mean Corpuscular Hemoglobin Concent 35 g/dL (31-37) Red Cell Distribution Width 13.6 % (11.5-14.5) Platelet Count 157 x10^3/uL (140-400) Neutrophils (%) (Auto) 78 % (31-73) Lymphocytes (%) (Auto) 14 % (24-48) Monocytes (%) (Auto) 6 % (0-9) Eosinophils (%) (Auto) 2 % (0-3) Basophils (%) (Auto) 1 % (0-3) Neutrophils # (Auto) 8.7 x10^3uL (1.8-7.7) Lymphocytes # (Auto) 1.5 x10^3/uL (1.0-4.8) Monocytes # (Auto) 0.7 x10^3/uL (0.0-1.1) Eosinophils # (Auto) 0.2 x10^3/uL (0.0-0.7) Basophils # (Auto) 0.1 x10^3/uL (0.0-0.2) Sodium Level 143 mmol/L (136-145) Potassium Level 3.7 mmol/L (3.5-5.1) Chloride Level 101 mmol/L (98-107) Carbon Dioxide Level 30 mmol/L (21-32) Anion Gap 12 (6-14) Blood Urea Nitrogen 48 mg/dL (8-26) Creatinine 5.3 mg/dL (0.7-1.3) Estimated GFR (Cockcroft-Gault) 10.8 Glucose Level 111 mg/dL (70-99) Calcium Level 8.5 mg/dL (8.5-10.1) Test 01/21/18 08:22 01/21/18 11:53 Glucose (Fingerstick) 139 mg/dL (70-99) 123 mg/dL (70-99) Brief Hospital Course Mr. Hernandez is a 72 old male who was admitted for nausea vomiting diarrhea and fever. Grew staph bacteremia on cultures comanage with ID. Will need IV abx during dialysis days Saturday. Cefazolin on chart. Also some Cipro by mouth to continue 10 day course. He has history of proximal A. fib on Eliquis. He has history of left kidney cancer status post nephrectomy on dialysis Saturday. Course remarkable for some right big toe wound needed I and D on 01/14. No PT needs except home health. IV antibiotics arranged during dialysis days Rx on chart New meds from renal is a Nephro-Maureen which I have Rx'd on chart Patient seen and examined consults performed renal, infectious disease, or throat procedures Procedures I&D of right big toe Discharge Information Condition at Discharge: Improved, Stable Disposition/Orders: D/C to Home w/ HH Scheduled Allopurinol (Allopurinol) 100 Mg Tablet, 100 MG PO DAILY, #30 Prescribed by: TYRON MENDEZ MD on 06/06/17 1249 Last Action: Continued on 01/13/18846 by ARIELLA ESQUIVEL MD Apixaban (Eliquis) 5 Mg Tablet, 5 MG PO BID, (Reported) Entered as Reported by: YOLANDA JOY on 06/03/17 1719 Last Action: Continued on 01/13/18846 by ARIELLA ESQUIVEL MD Atorvastatin Calcium (Atorvastatin Calcium) 20 Mg Tablet, 20 MG PO HS for FOR CHOLESTEROL, #30 Ref 0 (Reported) Entered as Reported by: YOLANDA JOY on 06/03/171705 Last Action: Continued on 01/13/18846 by ARIELLA ESQUIVEL MD Carvedilol (Coreg) 6.25 Mg Tablet, 1 TAB PO BID, #180 Ref 1 (Reported) Entered as Reported by: YOLANDA JOY on 06/03/171705 Last Action: Continued on 01/13/18846 by ARIELLA ESQUIVEL MD Cefpodoxime Proxetil (Cefpodoxime Proxetil) 100 Mg Tablet, 200 MG PO BID, #10 Prescribed by: TYRON MENDEZ MD on 06/06/17 1249 Last Action: HELD on 01/13/18846 by ARIELLA ESQUIVEL MD Cinacalcet Hcl (Sensipar) 30 Mg Tablet, 60 MG PO DAILY, (Reported) Entered as Reported by: YOLANDA JOY on 06/03/171718 Last Action: Continued on 01/13/18846 by ARIELLA ESQUIVEL MD Ferrous Sulfate (Ferrous Sulfate) 325 Mg Tablet, 1 TAB PO TID, #60 Ref 3 ( Reported) Entered as Reported by: YOLANDA JOY on 06/03/171707 Last Action: Continued on 01/13/18846 by ARIELLA ESQUIVEL MD Folic Acid/Vitamin B Comp W-C (Mindy-Maureen Tablet) 0.8 Mg Tablet, 1 TAB PO DAILY for 30 Days, #30 Prescribed by: VICTOR M PINA on 01/21/18 1306 Furosemide (Lasix) 40 Mg Tablet, 40 MG PO BID, (Reported) Entered as Reported by: YOLANDA JOY on 06/03/171718 Last Action: Continued on 01/13/18846 by ARIELLA ESQUIVEL MD Insulin Aspart (Novolog Flexpen) 100 Unit/1 Ml Insuln.pen, 0 UNITS SQ TIDWMEALS for 30 Days Prescribed by: ARIELLA ESQUIVEL MD on 01/12/17 1616 Last Action: HELD on 01/13/18846 by ARIELLA ESQUIVEL MD Insulin Detemir (Levemir Flextouch) 100 Unit/1 Ml Insuln.pen, 20 UNITS SQ QHS for 30 Days Prescribed by: ARIELLA ESQUIVEL MD on 01/12/17 1616 Last Action: Converted on 01/13/18846 by ARIELLA ESQUIVEL MD Lactobacillus Rhamnosus Gg (Culturelle) 1 Each Cap.sprink, 1 CAP PO BID, #10 Prescribed by: TYRON MENDEZ MD on 06/06/17 1249 Last Action: HELD on 01/13/18846 by ARIELLA ESQUIVEL MD Pravastatin Sodium (Pravastatin Sodium) 20 Mg Tablet, 20 MG PO DAILY, (Reported) Entered as Reported by: Rigo Moran on 06/26/13 2255 Last Action: Converted on 01/13/18846 by ARIELLA ESQUIVEL MD Sevelamer Carbonate (Renvela) 800 Mg Tablet, 3 TAB PO TID, #810 Ref 3 (Reported) Entered as Reported by: YOLANDA JOY on 06/03/171718 Last Action: Continued on 01/13/18846 by ARIELLA ESQUIVEL MD Miscellaneous Medications Sacubitril/Valsartan (Entresto 49 mg-51 mg Tablet) 1 Each Tablet, 1 EACH PO, ( Reported) Entered as Reported by: YOLANDA JOY on 06/03/171718 Last Action: HELD on 01/13/18846 by ARIELLA ESQUIVEL MD Discontinued Medications Calcium Carbonate (Calcium) 500 Mg Tablet, 500 MG PO, (Reported) Entered as Reported by: MANFRED DEMPSEY on 01/19/18 1306 Last Action: Discontinued on 01/19/181305 by MANFRED DEMPSEY Cholecalciferol (Vitamin D3) (Vitamin D-3) 2,000 Unit Capsule, 2,000 UNIT PO WEEKLY, (Reported) Entered as Reported by: MANFRED DEMPSEY on 01/19/18 1306 Last Action: Discontinued on 01/19/181305 by MANFRED DEMPSEY Loperamide Hcl (Loperamide) 2 Mg Tablet, 2 MG PO for DIARRHEA, (Reported) Entered as Reported by: MANFRED DEMPSEY on 01/19/18 1306 Last Action: Discontinued on 01/19/18 130 by MANFRED DEMPSEY Metoprolol Succinate (Metoprolol Succinate ( Xl )) 100 Mg Tab.er.24h, 50 MG PO BID for FOR HYPERTENSION, #30 Ref 0 (Reported) Entered as Reported by: MANFRED DEMPSEY on 01/19/181305 Last Action: Discontinued on 01/19/181305 by MANFRED DEMPSEY Potassium Chloride (Potassium Chloride) 20 Meq Tablet.er, 20 MEQ PO DAILY, ( Reported) Entered as Reported by: MANFRED DEMPSEY on 01/19/181305 Last Action: Discontinued on 01/19/181305 by MANFRED DEMPSEY Tamsulosin Hcl (Tamsulosin Hcl) 0.4 Mg Cap.er.24h, 1 CAP PO HS, #30 Ref 5 ( Reported) Entered as Reported by: MANFRED DEMPSEY on 01/19/181305 Last Action: Discontinued on 01/19/181305 by VICTOR M YOUNG MD Jan 21, 2018 13:09
--- NOTE | 2018-01-21 13:35 | DISCH ---
DISCHARGE WITH HOME HEALTH DISCHARGE INFORMATION: Final Diagnosis: Problems Medical Problems: (1) Pneumonia Status: Acute Condition on Discharge: Stable CODE STATUS: Code Status: Full HOME HEALTH: Face to Face: I certify this patient is under my care and that I, or a nurse practitioner or physician's nursing home assistant working with me, had a face to face encounter that meets the physician face to face encounter requirements with this patient on []. Medical Complications: Other (esrd) Physical Therapy For: Evalulation/Treatment Occupational Therapy For: Evaluation/Treatment Home Health Aide For: Other (abx IV) POST DISCHARGE ORDERS: Activity Instructions for Disc: Activity as tolerated Weight Bearing Status after Di: As tolerated Bathing Instructions: Shower-keep dressing dry DIET AFTER DISCHARGE: Renal CHECKS AFTER DISCHARGE: Checks after discharge: Check blood press - daily, Check blood sugar, ac/hs, Weigh Yourself Daily TREATMENT/EQUIPMENT ORDERS: Adaptive Equipment Issued: None CERTIFICATION STATEMENT: Certification Statement: Certification Statement: Based on the above finding, I certify that this patient is confined to the home and needs intermittent mcfp care, physical therapy and/or speech therapy, or continues to need occupational therapy.~ This patient is under my care, and I have initiated the establishment of the plan of care.~ This patient will be followed by myself or a community physician who will periodically review the plan of care. Home Meds Active Scripts Folic Acid/Vitamin B Comp W-C (NANDA-YUE TABLET) 0.8 Mg Tablet, 1 TAB PO DAILY for 30 Days, #30 TAB Prov:VICTOR M PINA MD 01/21/18 Lactobacillus Rhamnosus Gg (CULTURELLE) 1 Each Cap.sprink, 1 CAP PO BID, #10 CAP Prov:TYRON MENDEZ MD 06/06/17 Cefpodoxime Proxetil (CEFPODOXIME PROXETIL) 100 Mg Tablet, 200 MG PO BID, #10 TAB Prov:TYRON MENDEZ MD 06/06/17 Allopurinol (ALLOPURINOL) 100 Mg Tablet, 100 MG PO DAILY, #30 TAB Prov:TYRON MENDEZ MD 06/06/17 Insulin Aspart (NOVOLOG FLEXPEN) 100 Unit/1 Ml Insuln.pen, 0 UNITS SQ TIDWMEALS for 30 Days, EACH Prov:ARIELLA ESQUIVEL MD 01/12/17 Insulin Detemir (Levemir Flextouch) 100 Unit/1 Ml Insuln.pen, 20 UNITS SQ QHS for 30 Days, EACH Prov:ARIELLA ESQUIVEL MD 01/12/17 Reported Medications Sevelamer Carbonate (RENVELA) 800 Mg Tablet, 3 TAB PO TID, #810 TAB 3 Refills 06/03/17 Sacubitril/Valsartan (Entresto 49 mg-51 mg Tablet) 1 Each Tablet, 1 EACH PO, TAB 06/03/17 Furosemide (LASIX) 40 Mg Tablet, 40 MG PO BID, TAB 06/03/17 Cinacalcet Hcl (SENSIPAR) 30 Mg Tablet, 60 MG PO DAILY, TAB 06/03/17 Apixaban (ELIQUIS) 5 Mg Tablet, 5 MG PO BID, TAB 06/03/17 Ferrous Sulfate (FERROUS SULFATE) 325 Mg Tablet, 1 TAB PO TID, #60 TAB 3 Refills 06/03/17 Carvedilol (COREG) 6.25 Mg Tablet, 1 TAB PO BID, #180 TAB 1 Refill 06/03/17 Atorvastatin Calcium (ATORVASTATIN CALCIUM) 20 Mg Tablet, 20 MG PO HS for FOR CHOLESTEROL, #30 TAB 0 Refills 06/03/17 Pravastatin Sodium (PRAVASTATIN SODIUM) 20 Mg Tablet, 20 MG PO DAILY 06/26/13 Discontinued Reported Medications Loperamide Hcl (LOPERAMIDE) 2 Mg Tablet, 2 MG PO PRN for DIARRHEA, TAB 01/19/18 Metoprolol Succinate (METOPROLOL SUCCINATE ( XL )) 100 Mg Tab.er.24h, 50 MG PO BID for FOR HYPERTENSION, #30 TAB 0 Refills 01/19/18 Cholecalciferol (Vitamin D3) (VITAMIN D-3) 2,000 Unit Capsule, 2000 UNIT PO WEEKLY, CAP 01/19/18 Tamsulosin Hcl (TAMSULOSIN HCL) 0.4 Mg Cap.er.24h, 1 CAP PO HS, #30 CAP 5 Refills 01/19/18 Potassium Chloride (POTASSIUM CHLORIDE) 20 Meq Tablet.er, 20 MEQ PO DAILY, TAB.SR 01/19/18 Calcium Carbonate (CALCIUM) 500 Mg Tablet, 500 MG PO, TAB 01/19/18 VICTOR M PINA MD Jan 21, 2018 13:35
[2018-01-21] MEDS: CEFEPIME HCL IV Push 1 GM VIAL. IVP SCH (14:27)
--- NOTE | 2018-01-21 15:29 | PDOC ---
Progress Note-Wound Care SUBJECTIVE Pt awake and alert, pleasant in conversation. Denies pain. States he is feeling well and looking forward to his upcoming discharge. Pt states he is eating well with good output. OBJECTIVE Vital Signs Vital Signs Date Time Temp Pulse Resp B/P (MAP) Pulse Ox O2 Delivery O2 Flow Rate FiO2 01/20/18 07:00 97.6 63 20 141/69 (93) 97 Room Air 97.6 Vital Signs Date Time Temp Pulse Resp B/P (MAP) Pulse Ox O2 Delivery O2 Flow Rate FiO2 01/21/18 11:00 97.6 64 24 149/70 (96) 99 Room Air 97.6 Physical Exam: Pt awake and alert. NAD. VSS. Afebrile. Resp even and unlabored. Pt on RA, not requiring O2. No pedal edema present. Pt ambulatory with a steady gait. Right great toe with DFU. Debrided upon admission. Wound base 100% granulation. Edges attached and not . No surrounding erythema or edema. Callus surrounding wound debrided with derm curette. Pt tolerated without painful symptoms. WOUND Location of Modifier: Right Wound Location: Plantar Body Site: Toe PLAN Following debridement, robert Ag placed in wound bed, covered with aquacell Ag and then foam. Change every 3 days or prn if dressing loose or saturated. Offloading discussed with pt. Pt with Arely gavin, continue use. FOLLOW[facility]UP [facility], appt 01/28 at 10:30. Surgical Debridement #1 Start Time: 1430 End Time: 1447 Time Out Completed: Time Out Procedure: Verify 2 pt. Identifiers, Consent Signed, Verbal Verification w/ Pt, Wound Asssess. Performed Wound Location: Great toe Tissue Removed: Non-Viable, Slough, Devitalized, Bioburden Method of Debridement: Scapel, Curette Depth of Debridement: Skin Bleeding: Minimal Hemostasis Achieved: Pressure Pain Level: Pain ___/10 0 Post Debridement Measurement: Length cm.: 2.0 Width cm.: 1.4 Wound Depth cm.: 0.2 ANNALISA RICO APRN Jan 21, 2018 15:29 SULMA KEYS DO Jan 22, 2018 07:36
== END 2018-01-21 16:45 | disposition home health service (06) | DRG 853 ==
LOC: ER 17:24 → 5 SOUTH 19:14
PROVIDERS: ADMIT Internal Medicine; ATTEND Internal Medicine
PROC: 5A1D70Z Performance of Urinary Filtration, Intermittent, Less than 6 Hours Per Day (ICD-10-PCS; 2018-01-13)
PROC: 0KBV0ZZ Excision of Right Foot Muscle, Open Approach (ICD-10-PCS; 2018-01-14)
PROC: 5A09357 Assistance with Respiratory Ventilation, Less than 24 Consecutive Hours, Continuous Positive Airway Pressure (ICD-10-PCS; 2018-01-15)
PROC: 5A09357 Assistance with Respiratory Ventilation, Less than 24 Consecutive Hours, Continuous Positive Airway Pressure (ICD-10-PCS; 2018-01-19)
PROC: 0HBMXZZ Excision of Right Foot Skin, External Approach (ICD-10-PCS; principal; 2018-01-21)
PROC: 5A09357 Assistance with Respiratory Ventilation, Less than 24 Consecutive Hours, Continuous Positive Airway Pressure (ICD-10-PCS; 2018-01-21)
DX: A41.9 Sepsis, unspecified organism (principal); J18.9 Pneumonia, unspecified organism; N18.6 End stage renal disease; I13.2 Hypertensive heart and chronic kidney disease with heart failure and with stage 5 chronic kidney disease, or end stage renal disease; J98.11 Atelectasis; I42.9 Cardiomyopathy, unspecified; I50.42 Chronic combined systolic (congestive) and diastolic (congestive) heart failure; E11.22 Type 2 diabetes mellitus with diabetic chronic kidney disease; I25.10 Atherosclerotic heart disease of native coronary artery without angina pectoris; K21.9 Gastro-esophageal reflux disease without esophagitis; E21.3 Hyperparathyroidism, unspecified; K59.00 Constipation, unspecified; E78.00 Pure hypercholesterolemia, unspecified; M10.9 Gout, unspecified; K52.9 Noninfective gastroenteritis and colitis, unspecified; E78.5 Hyperlipidemia, unspecified; H26.9 Unspecified cataract; H91.90 Unspecified hearing loss, unspecified ear; K57.30 Diverticulosis of large intestine without perforation or abscess without bleeding; F17.201 Nicotine dependence, unspecified, in remission; D64.9 Anemia, unspecified; B96.4 Proteus (mirabilis) (morganii) as the cause of diseases classified elsewhere; B95.8 Unspecified staphylococcus as the cause of diseases classified elsewhere; I48.0 Paroxysmal atrial fibrillation; Z85.528 Personal history of other malignant neoplasm of kidney; Z99.2 Dependence on renal dialysis; Z90.5 Acquired absence of kidney; Z82.49 Family history of ischemic heart disease and other diseases of the circulatory system; Z88.8 Allergy status to other drugs, medicaments and biological substances; Z86.73 Personal history of transient ischemic attack (TIA), and cerebral infarction without residual deficits; Z98.49 Cataract extraction status, unspecified eye; Z82.3 Family history of stroke; Z79.4 Long term (current) use of insulin; Z79.01 Long term (current) use of anticoagulants
CPT/HCPCS: 36415; 71250; 74176; 80048; 80053; 80069; 80202; 82962; 83605; 83690; 83880; 84484; 85007; 85025; 85027; 85651; 87040; 87071; 87075; 87186; 87205; 93005; 93306; 96365; 96368; J0692; J0696; J1815; J2543; J3370; J7040; 97110; 97116; 97535; 99285-25

== ENCOUNTER → 2018-01-28 | Outpatient (CLI) | payer MEDICARE, BC ==
[2018-01-21 11:00] VITALS: BP 149/70
[~2018-01-28] MED LIST changes: +CALC500T30 PO; +CHOL200074 PO; +FOLI0.8T21 PO; +LOPE2TAB27 PO; +METO-247 PO; +TAMS0.4C2 PO
== END | disposition home or self-care (01) ==
LOC: PMGWOUND 10:16
PROVIDERS: ATTEND Emergency Medicine Undersea and Hyperbaric Medicine
DX: E11.621 Type 2 diabetes mellitus with foot ulcer (principal); L97.512 Non-pressure chronic ulcer of other part of right foot with fat layer exposed; I70.201 Unspecified atherosclerosis of native arteries of extremities, right leg; I13.2 Hypertensive heart and chronic kidney disease with heart failure and with stage 5 chronic kidney disease, or end stage renal disease; E11.22 Type 2 diabetes mellitus with diabetic chronic kidney disease; N18.6 End stage renal disease; I50.814 Right heart failure due to left heart failure; I50.42 Chronic combined systolic (congestive) and diastolic (congestive) heart failure; E11.51 Type 2 diabetes mellitus with diabetic peripheral angiopathy without gangrene; E11.36 Type 2 diabetes mellitus with diabetic cataract; L84 Corns and callosities; I48.0 Paroxysmal atrial fibrillation; I48.2 Chronic atrial fibrillation; E03.9 Hypothyroidism, unspecified; I25.2 Old myocardial infarction; E78.4 Other hyperlipidemia; I42.9 Cardiomyopathy, unspecified; M10.9 Gout, unspecified; E21.3 Hyperparathyroidism, unspecified; E78.00 Pure hypercholesterolemia, unspecified; K21.9 Gastro-esophageal reflux disease without esophagitis; I25.10 Atherosclerotic heart disease of native coronary artery without angina pectoris; E66.01 Morbid (severe) obesity due to excess calories; Z68.32 Body mass index [BMI] 32.0-32.9, adult; Z99.2 Dependence on renal dialysis; Z79.4 Long term (current) use of insulin; Z79.01 Long term (current) use of anticoagulants; Z87.891 Personal history of nicotine dependence; Z85.528 Personal history of other malignant neoplasm of kidney; Z86.73 Personal history of transient ischemic attack (TIA), and cerebral infarction without residual deficits
CPT/HCPCS: 11042

== ENCOUNTER → 2018-02-04 | Outpatient (CLI) | payer MEDICARE, BC ==
[2018-01-21 11:00] VITALS: BP 149/70
== END | disposition home or self-care (01) ==
LOC: PMGWOUND 09:48
PROVIDERS: ATTEND Emergency Medicine Undersea and Hyperbaric Medicine
DX: E11.621 Type 2 diabetes mellitus with foot ulcer (principal); L97.512 Non-pressure chronic ulcer of other part of right foot with fat layer exposed; L97.522 Non-pressure chronic ulcer of other part of left foot with fat layer exposed; I70.201 Unspecified atherosclerosis of native arteries of extremities, right leg; E11.36 Type 2 diabetes mellitus with diabetic cataract; E11.51 Type 2 diabetes mellitus with diabetic peripheral angiopathy without gangrene; I13.2 Hypertensive heart and chronic kidney disease with heart failure and with stage 5 chronic kidney disease, or end stage renal disease; E11.22 Type 2 diabetes mellitus with diabetic chronic kidney disease; N18.6 End stage renal disease; I50.42 Chronic combined systolic (congestive) and diastolic (congestive) heart failure; I50.814 Right heart failure due to left heart failure; L84 Corns and callosities; I48.2 Chronic atrial fibrillation; I25.2 Old myocardial infarction; I48.0 Paroxysmal atrial fibrillation; M10.9 Gout, unspecified; I42.9 Cardiomyopathy, unspecified; E78.4 Other hyperlipidemia; I48.91 Unspecified atrial fibrillation; E78.5 Hyperlipidemia, unspecified; K21.9 Gastro-esophageal reflux disease without esophagitis; I25.10 Atherosclerotic heart disease of native coronary artery without angina pectoris; E21.3 Hyperparathyroidism, unspecified; E03.9 Hypothyroidism, unspecified; E78.00 Pure hypercholesterolemia, unspecified; E66.01 Morbid (severe) obesity due to excess calories; Z68.32 Body mass index [BMI] 32.0-32.9, adult; Z99.2 Dependence on renal dialysis; Z79.4 Long term (current) use of insulin; Z87.891 Personal history of nicotine dependence; Z85.528 Personal history of other malignant neoplasm of kidney; Z86.73 Personal history of transient ischemic attack (TIA), and cerebral infarction without residual deficits
CPT/HCPCS: 15275; Q4160

== ENCOUNTER → 2018-02-11 | Outpatient (CLI) | payer MEDICARE, BC ==
[2018-01-21 11:00] VITALS: BP 149/70
== END | disposition home or self-care (01) ==
LOC: PMGWOUND 10:29
PROVIDERS: ATTEND Emergency Medicine Undersea and Hyperbaric Medicine
DX: I70.201 Unspecified atherosclerosis of native arteries of extremities, right leg (principal); E11.621 Type 2 diabetes mellitus with foot ulcer; L97.512 Non-pressure chronic ulcer of other part of right foot with fat layer exposed; I13.2 Hypertensive heart and chronic kidney disease with heart failure and with stage 5 chronic kidney disease, or end stage renal disease; E11.22 Type 2 diabetes mellitus with diabetic chronic kidney disease; N18.6 End stage renal disease; I50.42 Chronic combined systolic (congestive) and diastolic (congestive) heart failure; I50.814 Right heart failure due to left heart failure; E11.36 Type 2 diabetes mellitus with diabetic cataract; E11.51 Type 2 diabetes mellitus with diabetic peripheral angiopathy without gangrene; L84 Corns and callosities; I42.9 Cardiomyopathy, unspecified; I48.2 Chronic atrial fibrillation; I25.2 Old myocardial infarction; E78.49 Other hyperlipidemia; I48.0 Paroxysmal atrial fibrillation; K21.9 Gastro-esophageal reflux disease without esophagitis; M10.9 Gout, unspecified; I25.10 Atherosclerotic heart disease of native coronary artery without angina pectoris; E21.3 Hyperparathyroidism, unspecified; E03.9 Hypothyroidism, unspecified; E78.00 Pure hypercholesterolemia, unspecified; E66.01 Morbid (severe) obesity due to excess calories; Z68.32 Body mass index [BMI] 32.0-32.9, adult; Z79.4 Long term (current) use of insulin; Z99.2 Dependence on renal dialysis; Z87.891 Personal history of nicotine dependence; Z86.73 Personal history of transient ischemic attack (TIA), and cerebral infarction without residual deficits; Z85.528 Personal history of other malignant neoplasm of kidney
CPT/HCPCS: 97597

== ENCOUNTER → 2018-02-18 | Outpatient (CLI) | payer MEDICARE, BC ==
[2018-01-21 11:00] VITALS: BP 149/70
== END | disposition home or self-care (01) ==
LOC: PMGWOUND 10:03
PROVIDERS: ATTEND Emergency Medicine Undersea and Hyperbaric Medicine
DX: E11.621 Type 2 diabetes mellitus with foot ulcer (principal); L97.512 Non-pressure chronic ulcer of other part of right foot with fat layer exposed; I70.201 Unspecified atherosclerosis of native arteries of extremities, right leg; E11.36 Type 2 diabetes mellitus with diabetic cataract; E11.51 Type 2 diabetes mellitus with diabetic peripheral angiopathy without gangrene; I13.2 Hypertensive heart and chronic kidney disease with heart failure and with stage 5 chronic kidney disease, or end stage renal disease; E11.22 Type 2 diabetes mellitus with diabetic chronic kidney disease; N18.6 End stage renal disease; I50.814 Right heart failure due to left heart failure; I50.42 Chronic combined systolic (congestive) and diastolic (congestive) heart failure; L84 Corns and callosities; M10.9 Gout, unspecified; E21.3 Hyperparathyroidism, unspecified; E03.9 Hypothyroidism, unspecified; I25.2 Old myocardial infarction; E78.49 Other hyperlipidemia; E78.00 Pure hypercholesterolemia, unspecified; I48.0 Paroxysmal atrial fibrillation; I42.9 Cardiomyopathy, unspecified; K21.9 Gastro-esophageal reflux disease without esophagitis; I25.10 Atherosclerotic heart disease of native coronary artery without angina pectoris; E66.01 Morbid (severe) obesity due to excess calories; Z68.32 Body mass index [BMI] 32.0-32.9, adult; Z99.2 Dependence on renal dialysis; Z79.4 Long term (current) use of insulin; Z79.01 Long term (current) use of anticoagulants; Z90.5 Acquired absence of kidney; Z87.891 Personal history of nicotine dependence; Z85.528 Personal history of other malignant neoplasm of kidney; Z86.73 Personal history of transient ischemic attack (TIA), and cerebral infarction without residual deficits; Z88.8 Allergy status to other drugs, medicaments and biological substances
CPT/HCPCS: 15275; Q4160

== ENCOUNTER → 2018-02-25 | Outpatient (CLI) | payer MEDICARE, BC | END | disposition home or self-care (01) | LOC: PMGWOUND 10:08 | PROVIDERS: ATTEND Emergency Medicine Undersea and Hyperbaric Medicine | DX: E11.621 Type 2 diabetes mellitus with foot ulcer (principal); L97.512 Non-pressure chronic ulcer of other part of right foot with fat layer exposed; L97.522 Non-pressure chronic ulcer of other part of left foot with fat layer exposed; I70.201 Unspecified atherosclerosis of native arteries of extremities, right leg; E11.51 Type 2 diabetes mellitus with diabetic peripheral angiopathy without gangrene; I13.2 Hypertensive heart and chronic kidney disease with heart failure and with stage 5 chronic kidney disease, or end stage renal disease; E11.22 Type 2 diabetes mellitus with diabetic chronic kidney disease; N18.6 End stage renal disease; I50.814 Right heart failure due to left heart failure; I50.42 Chronic combined systolic (congestive) and diastolic (congestive) heart failure; L84 Corns and callosities; I48.2 Chronic atrial fibrillation; M10.9 Gout, unspecified; I48.0 Paroxysmal atrial fibrillation; E78.49 Other hyperlipidemia; I42.9 Cardiomyopathy, unspecified; K21.9 Gastro-esophageal reflux disease without esophagitis; E21.3 Hyperparathyroidism, unspecified; E03.9 Hypothyroidism, unspecified; I25.2 Old myocardial infarction; I25.10 Atherosclerotic heart disease of native coronary artery without angina pectoris; E78.00 Pure hypercholesterolemia, unspecified; E66.01 Morbid (severe) obesity due to excess calories; Z68.32 Body mass index [BMI] 32.0-32.9, adult; Z99.2 Dependence on renal dialysis; Z79.4 Long term (current) use of insulin; Z87.891 Personal history of nicotine dependence; Z85.528 Personal history of other malignant neoplasm of kidney; Z86.73 Personal history of transient ischemic attack (TIA), and cerebral infarction without residual deficits | CPT/HCPCS: 99214; G0463 ==

== ENCOUNTER → 2018-03-04 | Outpatient (CLI) | payer MEDICARE, BC | END | disposition home or self-care (01) | LOC: PMGWOUND 10:04 | PROVIDERS: ATTEND Emergency Medicine Undersea and Hyperbaric Medicine | DX: E11.621 Type 2 diabetes mellitus with foot ulcer (principal); L97.512 Non-pressure chronic ulcer of other part of right foot with fat layer exposed; I70.201 Unspecified atherosclerosis of native arteries of extremities, right leg; E11.51 Type 2 diabetes mellitus with diabetic peripheral angiopathy without gangrene; E11.36 Type 2 diabetes mellitus with diabetic cataract; I13.2 Hypertensive heart and chronic kidney disease with heart failure and with stage 5 chronic kidney disease, or end stage renal disease; E11.22 Type 2 diabetes mellitus with diabetic chronic kidney disease; N18.6 End stage renal disease; I50.42 Chronic combined systolic (congestive) and diastolic (congestive) heart failure; I50.814 Right heart failure due to left heart failure; L84 Corns and callosities; I48.2 Chronic atrial fibrillation; M10.9 Gout, unspecified; I48.91 Unspecified atrial fibrillation; I48.0 Paroxysmal atrial fibrillation; E78.5 Hyperlipidemia, unspecified; I42.9 Cardiomyopathy, unspecified; K21.9 Gastro-esophageal reflux disease without esophagitis; E21.3 Hyperparathyroidism, unspecified; E03.9 Hypothyroidism, unspecified; I25.2 Old myocardial infarction; E78.00 Pure hypercholesterolemia, unspecified; E78.49 Other hyperlipidemia; I25.10 Atherosclerotic heart disease of native coronary artery without angina pectoris; E66.01 Morbid (severe) obesity due to excess calories; Z68.32 Body mass index [BMI] 32.0-32.9, adult; Z99.2 Dependence on renal dialysis; Z79.4 Long term (current) use of insulin; Z87.891 Personal history of nicotine dependence; Z85.528 Personal history of other malignant neoplasm of kidney; Z86.73 Personal history of transient ischemic attack (TIA), and cerebral infarction without residual deficits | CPT/HCPCS: 11042 ==

== ENCOUNTER → 2018-03-11 | Outpatient (CLI) | payer MEDICARE, BC | END | disposition home or self-care (01) | LOC: PMGWOUND 10:15 | PROVIDERS: ATTEND Emergency Medicine Undersea and Hyperbaric Medicine | DX: E11.621 Type 2 diabetes mellitus with foot ulcer (principal); L97.512 Non-pressure chronic ulcer of other part of right foot with fat layer exposed; I70.201 Unspecified atherosclerosis of native arteries of extremities, right leg; E11.36 Type 2 diabetes mellitus with diabetic cataract; E11.51 Type 2 diabetes mellitus with diabetic peripheral angiopathy without gangrene; I13.2 Hypertensive heart and chronic kidney disease with heart failure and with stage 5 chronic kidney disease, or end stage renal disease; E11.22 Type 2 diabetes mellitus with diabetic chronic kidney disease; N18.6 End stage renal disease; I50.814 Right heart failure due to left heart failure; I50.42 Chronic combined systolic (congestive) and diastolic (congestive) heart failure; L84 Corns and callosities; I48.2 Chronic atrial fibrillation; M10.9 Gout, unspecified; E21.3 Hyperparathyroidism, unspecified; E03.9 Hypothyroidism, unspecified; E78.49 Other hyperlipidemia; I48.0 Paroxysmal atrial fibrillation; I25.2 Old myocardial infarction; I42.9 Cardiomyopathy, unspecified; K21.9 Gastro-esophageal reflux disease without esophagitis; E78.00 Pure hypercholesterolemia, unspecified; I25.10 Atherosclerotic heart disease of native coronary artery without angina pectoris; E66.01 Morbid (severe) obesity due to excess calories; Z68.32 Body mass index [BMI] 32.0-32.9, adult; Z99.2 Dependence on renal dialysis; Z79.4 Long term (current) use of insulin; Z87.891 Personal history of nicotine dependence; Z80.51 Family history of malignant neoplasm of kidney; Z86.73 Personal history of transient ischemic attack (TIA), and cerebral infarction without residual deficits | CPT/HCPCS: 11042 ==

== ENCOUNTER → 2018-03-18 | Outpatient (CLI) | payer MEDICARE, BC | END | disposition home or self-care (01) | LOC: PMGWOUND 10:02 | PROVIDERS: ATTEND Emergency Medicine Undersea and Hyperbaric Medicine | DX: E11.621 Type 2 diabetes mellitus with foot ulcer (principal); L97.512 Non-pressure chronic ulcer of other part of right foot with fat layer exposed; I70.201 Unspecified atherosclerosis of native arteries of extremities, right leg; E11.36 Type 2 diabetes mellitus with diabetic cataract; E11.51 Type 2 diabetes mellitus with diabetic peripheral angiopathy without gangrene; I13.2 Hypertensive heart and chronic kidney disease with heart failure and with stage 5 chronic kidney disease, or end stage renal disease; E11.22 Type 2 diabetes mellitus with diabetic chronic kidney disease; N18.6 End stage renal disease; I50.814 Right heart failure due to left heart failure; I50.42 Chronic combined systolic (congestive) and diastolic (congestive) heart failure; L84 Corns and callosities; M10.9 Gout, unspecified; I48.91 Unspecified atrial fibrillation; E78.5 Hyperlipidemia, unspecified; I42.9 Cardiomyopathy, unspecified; I48.2 Chronic atrial fibrillation; E21.3 Hyperparathyroidism, unspecified; I25.2 Old myocardial infarction; E78.49 Other hyperlipidemia; I48.0 Paroxysmal atrial fibrillation; K21.9 Gastro-esophageal reflux disease without esophagitis; E78.00 Pure hypercholesterolemia, unspecified; I25.10 Atherosclerotic heart disease of native coronary artery without angina pectoris; E66.01 Morbid (severe) obesity due to excess calories; Z68.32 Body mass index [BMI] 32.0-32.9, adult; Z99.2 Dependence on renal dialysis; Z79.4 Long term (current) use of insulin; Z85.528 Personal history of other malignant neoplasm of kidney; Z87.891 Personal history of nicotine dependence; Z86.73 Personal history of transient ischemic attack (TIA), and cerebral infarction without residual deficits | CPT/HCPCS: 11042 ==

== ENCOUNTER → 2018-03-25 | Outpatient (CLI) | payer MEDICARE, BC | END | disposition home or self-care (01) | LOC: PMGWOUND 10:10 | PROVIDERS: ATTEND Emergency Medicine Undersea and Hyperbaric Medicine | DX: E11.621 Type 2 diabetes mellitus with foot ulcer (principal); L97.512 Non-pressure chronic ulcer of other part of right foot with fat layer exposed; I70.201 Unspecified atherosclerosis of native arteries of extremities, right leg; E11.36 Type 2 diabetes mellitus with diabetic cataract; E11.51 Type 2 diabetes mellitus with diabetic peripheral angiopathy without gangrene; I13.2 Hypertensive heart and chronic kidney disease with heart failure and with stage 5 chronic kidney disease, or end stage renal disease; E11.22 Type 2 diabetes mellitus with diabetic chronic kidney disease; N18.6 End stage renal disease; I50.814 Right heart failure due to left heart failure; I50.42 Chronic combined systolic (congestive) and diastolic (congestive) heart failure; L84 Corns and callosities; M10.9 Gout, unspecified; I48.91 Unspecified atrial fibrillation; E78.5 Hyperlipidemia, unspecified; N40.1 Benign prostatic hyperplasia with lower urinary tract symptoms; I25.10 Atherosclerotic heart disease of native coronary artery without angina pectoris; I42.9 Cardiomyopathy, unspecified; I48.2 Chronic atrial fibrillation; K21.9 Gastro-esophageal reflux disease without esophagitis; E21.3 Hyperparathyroidism, unspecified; I48.0 Paroxysmal atrial fibrillation; E66.01 Morbid (severe) obesity due to excess calories; I25.2 Old myocardial infarction; E78.00 Pure hypercholesterolemia, unspecified; Z68.32 Body mass index [BMI] 32.0-32.9, adult; Z99.2 Dependence on renal dialysis; Z79.4 Long term (current) use of insulin; Z85.520 Personal history of malignant carcinoid tumor of kidney; Z86.73 Personal history of transient ischemic attack (TIA), and cerebral infarction without residual deficits; Z87.891 Personal history of nicotine dependence | CPT/HCPCS: 97597 ==

== ENCOUNTER → 2018-04-01 | Outpatient (CLI) | payer MEDICARE, BC ==
[~2018-04-01] MED LIST changes: +HYDR-3164 PO; -HYDR-971 PO
== END | disposition home or self-care (01) ==
LOC: PMGWOUND 10:36
PROVIDERS: ATTEND Emergency Medicine Undersea and Hyperbaric Medicine
DX: E11.621 Type 2 diabetes mellitus with foot ulcer (principal); L97.512 Non-pressure chronic ulcer of other part of right foot with fat layer exposed; I70.201 Unspecified atherosclerosis of native arteries of extremities, right leg; E11.51 Type 2 diabetes mellitus with diabetic peripheral angiopathy without gangrene; E11.36 Type 2 diabetes mellitus with diabetic cataract; I13.2 Hypertensive heart and chronic kidney disease with heart failure and with stage 5 chronic kidney disease, or end stage renal disease; E11.22 Type 2 diabetes mellitus with diabetic chronic kidney disease; N18.6 End stage renal disease; I50.814 Right heart failure due to left heart failure; I50.42 Chronic combined systolic (congestive) and diastolic (congestive) heart failure; L84 Corns and callosities; M10.9 Gout, unspecified; E21.3 Hyperparathyroidism, unspecified; E78.00 Pure hypercholesterolemia, unspecified; I48.0 Paroxysmal atrial fibrillation; I42.9 Cardiomyopathy, unspecified; I48.2 Chronic atrial fibrillation; N40.1 Benign prostatic hyperplasia with lower urinary tract symptoms; E78.49 Other hyperlipidemia; E78.5 Hyperlipidemia, unspecified; I25.10 Atherosclerotic heart disease of native coronary artery without angina pectoris; K21.9 Gastro-esophageal reflux disease without esophagitis; I25.2 Old myocardial infarction; E66.01 Morbid (severe) obesity due to excess calories; Z68.32 Body mass index [BMI] 32.0-32.9, adult; Z79.4 Long term (current) use of insulin; Z99.2 Dependence on renal dialysis; Z86.73 Personal history of transient ischemic attack (TIA), and cerebral infarction without residual deficits; Z85.528 Personal history of other malignant neoplasm of kidney; Z87.891 Personal history of nicotine dependence
CPT/HCPCS: 11042

== ENCOUNTER → 2018-04-15 | Outpatient (CLI) | payer MEDICARE, BC ==
[~2018-04-15] MED LIST changes: +LOSA100T14 PO; -LOSA100T7 PO
== END | disposition home or self-care (01) ==
LOC: PMGWOUND 10:12
PROVIDERS: ATTEND Emergency Medicine Undersea and Hyperbaric Medicine
DX: E11.621 Type 2 diabetes mellitus with foot ulcer (principal); L97.512 Non-pressure chronic ulcer of other part of right foot with fat layer exposed; I70.201 Unspecified atherosclerosis of native arteries of extremities, right leg; E11.36 Type 2 diabetes mellitus with diabetic cataract; E11.51 Type 2 diabetes mellitus with diabetic peripheral angiopathy without gangrene; I13.2 Hypertensive heart and chronic kidney disease with heart failure and with stage 5 chronic kidney disease, or end stage renal disease; E11.22 Type 2 diabetes mellitus with diabetic chronic kidney disease; N18.6 End stage renal disease; I50.814 Right heart failure due to left heart failure; I50.42 Chronic combined systolic (congestive) and diastolic (congestive) heart failure; L84 Corns and callosities; I48.91 Unspecified atrial fibrillation; M10.9 Gout, unspecified; I42.9 Cardiomyopathy, unspecified; I48.2 Chronic atrial fibrillation; E21.3 Hyperparathyroidism, unspecified; I25.2 Old myocardial infarction; E78.49 Other hyperlipidemia; I48.0 Paroxysmal atrial fibrillation; E03.9 Hypothyroidism, unspecified; E78.00 Pure hypercholesterolemia, unspecified; K21.9 Gastro-esophageal reflux disease without esophagitis; N40.1 Benign prostatic hyperplasia with lower urinary tract symptoms; I25.10 Atherosclerotic heart disease of native coronary artery without angina pectoris; E66.01 Morbid (severe) obesity due to excess calories; Z68.32 Body mass index [BMI] 32.0-32.9, adult; Z99.2 Dependence on renal dialysis; Z79.4 Long term (current) use of insulin; Z87.891 Personal history of nicotine dependence; Z85.528 Personal history of other malignant neoplasm of kidney; Z86.73 Personal history of transient ischemic attack (TIA), and cerebral infarction without residual deficits
CPT/HCPCS: 11042; 82962

== ENCOUNTER → 2018-04-22 | Outpatient (CLI) | payer MEDICARE, BC | END | disposition home or self-care (01) | LOC: PMGWOUND 10:54 | PROVIDERS: ATTEND Emergency Medicine Undersea and Hyperbaric Medicine | DX: E11.621 Type 2 diabetes mellitus with foot ulcer (principal); L97.512 Non-pressure chronic ulcer of other part of right foot with fat layer exposed; I70.201 Unspecified atherosclerosis of native arteries of extremities, right leg; E11.36 Type 2 diabetes mellitus with diabetic cataract; E11.51 Type 2 diabetes mellitus with diabetic peripheral angiopathy without gangrene; I13.2 Hypertensive heart and chronic kidney disease with heart failure and with stage 5 chronic kidney disease, or end stage renal disease; E11.22 Type 2 diabetes mellitus with diabetic chronic kidney disease; N18.6 End stage renal disease; I50.814 Right heart failure due to left heart failure; I50.42 Chronic combined systolic (congestive) and diastolic (congestive) heart failure; L84 Corns and callosities; M10.9 Gout, unspecified; I48.0 Paroxysmal atrial fibrillation; I42.9 Cardiomyopathy, unspecified; I48.2 Chronic atrial fibrillation; E21.3 Hyperparathyroidism, unspecified; E03.9 Hypothyroidism, unspecified; I25.2 Old myocardial infarction; E78.49 Other hyperlipidemia; K21.9 Gastro-esophageal reflux disease without esophagitis; N40.1 Benign prostatic hyperplasia with lower urinary tract symptoms; I25.10 Atherosclerotic heart disease of native coronary artery without angina pectoris; Z99.2 Dependence on renal dialysis; Z79.4 Long term (current) use of insulin; E66.01 Morbid (severe) obesity due to excess calories; Z68.32 Body mass index [BMI] 32.0-32.9, adult; Z87.891 Personal history of nicotine dependence; Z85.528 Personal history of other malignant neoplasm of kidney; Z86.73 Personal history of transient ischemic attack (TIA), and cerebral infarction without residual deficits | CPT/HCPCS: 11042 ==

== ENCOUNTER → 2018-04-29 | Outpatient (CLI) | payer MEDICARE, BC | END | disposition home or self-care (01) | LOC: PMGWOUND 10:39 | PROVIDERS: ATTEND Emergency Medicine Undersea and Hyperbaric Medicine | DX: E11.621 Type 2 diabetes mellitus with foot ulcer (principal); L97.512 Non-pressure chronic ulcer of other part of right foot with fat layer exposed; I70.201 Unspecified atherosclerosis of native arteries of extremities, right leg; E11.51 Type 2 diabetes mellitus with diabetic peripheral angiopathy without gangrene; E11.36 Type 2 diabetes mellitus with diabetic cataract; I13.2 Hypertensive heart and chronic kidney disease with heart failure and with stage 5 chronic kidney disease, or end stage renal disease; E11.22 Type 2 diabetes mellitus with diabetic chronic kidney disease; N18.5 Chronic kidney disease, stage 5; I50.42 Chronic combined systolic (congestive) and diastolic (congestive) heart failure; L84 Corns and callosities; N40.1 Benign prostatic hyperplasia with lower urinary tract symptoms; I42.9 Cardiomyopathy, unspecified; I48.2 Chronic atrial fibrillation; E21.3 Hyperparathyroidism, unspecified; E03.9 Hypothyroidism, unspecified; M10.9 Gout, unspecified; I25.2 Old myocardial infarction; E78.49 Other hyperlipidemia; I48.0 Paroxysmal atrial fibrillation; E78.00 Pure hypercholesterolemia, unspecified; K21.9 Gastro-esophageal reflux disease without esophagitis; I25.10 Atherosclerotic heart disease of native coronary artery without angina pectoris; Z99.2 Dependence on renal dialysis; Z79.4 Long term (current) use of insulin; E66.01 Morbid (severe) obesity due to excess calories; Z68.32 Body mass index [BMI] 32.0-32.9, adult; Z87.891 Personal history of nicotine dependence; Z85.528 Personal history of other malignant neoplasm of kidney; Z86.73 Personal history of transient ischemic attack (TIA), and cerebral infarction without residual deficits | CPT/HCPCS: 99214; G0463 ==

== ENCOUNTER → 2018-05-08 | Outpatient (CLI) | payer MEDICARE, BC | END | disposition home or self-care (01) | LOC: PMGWOUND 09:42 | PROVIDERS: ATTEND Emergency Medicine Undersea and Hyperbaric Medicine | DX: E11.621 Type 2 diabetes mellitus with foot ulcer (principal); L97.512 Non-pressure chronic ulcer of other part of right foot with fat layer exposed; I70.201 Unspecified atherosclerosis of native arteries of extremities, right leg; E11.36 Type 2 diabetes mellitus with diabetic cataract; E11.51 Type 2 diabetes mellitus with diabetic peripheral angiopathy without gangrene; I13.2 Hypertensive heart and chronic kidney disease with heart failure and with stage 5 chronic kidney disease, or end stage renal disease; E11.22 Type 2 diabetes mellitus with diabetic chronic kidney disease; N18.6 End stage renal disease; I50.814 Right heart failure due to left heart failure; I50.42 Chronic combined systolic (congestive) and diastolic (congestive) heart failure; L84 Corns and callosities; E78.5 Hyperlipidemia, unspecified; M10.9 Gout, unspecified; I42.9 Cardiomyopathy, unspecified; I48.2 Chronic atrial fibrillation; E21.3 Hyperparathyroidism, unspecified; E03.9 Hypothyroidism, unspecified; I25.2 Old myocardial infarction; E78.49 Other hyperlipidemia; I48.0 Paroxysmal atrial fibrillation; E78.00 Pure hypercholesterolemia, unspecified; K21.9 Gastro-esophageal reflux disease without esophagitis; N40.1 Benign prostatic hyperplasia with lower urinary tract symptoms; I25.10 Atherosclerotic heart disease of native coronary artery without angina pectoris; E66.01 Morbid (severe) obesity due to excess calories; Z68.32 Body mass index [BMI] 32.0-32.9, adult; Z99.2 Dependence on renal dialysis; Z79.4 Long term (current) use of insulin; Z87.891 Personal history of nicotine dependence; Z85.528 Personal history of other malignant neoplasm of kidney; Z86.73 Personal history of transient ischemic attack (TIA), and cerebral infarction without residual deficits | CPT/HCPCS: 11042 ==

== ENCOUNTER → 2018-05-15 | Outpatient (CLI) | payer MEDICARE, BC | END | disposition home or self-care (01) | LOC: PMGWOUND 10:11 | PROVIDERS: ATTEND Emergency Medicine Undersea and Hyperbaric Medicine | DX: E11.621 Type 2 diabetes mellitus with foot ulcer (principal); L97.512 Non-pressure chronic ulcer of other part of right foot with fat layer exposed; I70.201 Unspecified atherosclerosis of native arteries of extremities, right leg; E11.36 Type 2 diabetes mellitus with diabetic cataract; E11.51 Type 2 diabetes mellitus with diabetic peripheral angiopathy without gangrene; I13.2 Hypertensive heart and chronic kidney disease with heart failure and with stage 5 chronic kidney disease, or end stage renal disease; E11.22 Type 2 diabetes mellitus with diabetic chronic kidney disease; N18.6 End stage renal disease; I50.814 Right heart failure due to left heart failure; I50.42 Chronic combined systolic (congestive) and diastolic (congestive) heart failure; L84 Corns and callosities; M10.9 Gout, unspecified; I42.9 Cardiomyopathy, unspecified; I48.2 Chronic atrial fibrillation; E78.00 Pure hypercholesterolemia, unspecified; K21.9 Gastro-esophageal reflux disease without esophagitis; E03.9 Hypothyroidism, unspecified; E21.3 Hyperparathyroidism, unspecified; I25.2 Old myocardial infarction; E78.49 Other hyperlipidemia; N40.1 Benign prostatic hyperplasia with lower urinary tract symptoms; I25.10 Atherosclerotic heart disease of native coronary artery without angina pectoris; E66.01 Morbid (severe) obesity due to excess calories; Z68.32 Body mass index [BMI] 32.0-32.9, adult; Z99.2 Dependence on renal dialysis; Z79.4 Long term (current) use of insulin; Z85.528 Personal history of other malignant neoplasm of kidney; Z86.73 Personal history of transient ischemic attack (TIA), and cerebral infarction without residual deficits; Z87.891 Personal history of nicotine dependence | CPT/HCPCS: 97597 ==

== ENCOUNTER → 2018-06-03 | Outpatient (CLI) | payer MEDICARE, BC | END | disposition home or self-care (01) | LOC: PMGWOUND 09:51 | PROVIDERS: ATTEND Emergency Medicine Undersea and Hyperbaric Medicine | DX: E11.622 Type 2 diabetes mellitus with other skin ulcer (principal); L97.512 Non-pressure chronic ulcer of other part of right foot with fat layer exposed; I70.201 Unspecified atherosclerosis of native arteries of extremities, right leg; E11.36 Type 2 diabetes mellitus with diabetic cataract; E11.51 Type 2 diabetes mellitus with diabetic peripheral angiopathy without gangrene; I13.2 Hypertensive heart and chronic kidney disease with heart failure and with stage 5 chronic kidney disease, or end stage renal disease; E11.22 Type 2 diabetes mellitus with diabetic chronic kidney disease; N18.6 End stage renal disease; I50.814 Right heart failure due to left heart failure; I50.42 Chronic combined systolic (congestive) and diastolic (congestive) heart failure; L84 Corns and callosities; I25.10 Atherosclerotic heart disease of native coronary artery without angina pectoris; I42.9 Cardiomyopathy, unspecified; I48.2 Chronic atrial fibrillation; K21.9 Gastro-esophageal reflux disease without esophagitis; M10.9 Gout, unspecified; E21.3 Hyperparathyroidism, unspecified; E03.9 Hypothyroidism, unspecified; E66.01 Morbid (severe) obesity due to excess calories; I25.2 Old myocardial infarction; E78.5 Hyperlipidemia, unspecified; N40.1 Benign prostatic hyperplasia with lower urinary tract symptoms; E78.49 Other hyperlipidemia; E78.00 Pure hypercholesterolemia, unspecified; I48.0 Paroxysmal atrial fibrillation; Z79.4 Long term (current) use of insulin; Z99.2 Dependence on renal dialysis; Z87.891 Personal history of nicotine dependence; Z85.528 Personal history of other malignant neoplasm of kidney; Z86.73 Personal history of transient ischemic attack (TIA), and cerebral infarction without residual deficits | CPT/HCPCS: 11042 ==

== ENCOUNTER → 2018-06-17 | Outpatient (CLI) | payer MEDICARE, BC | END | disposition home or self-care (01) | LOC: PMGWOUND 10:18 | PROVIDERS: ATTEND Emergency Medicine Undersea and Hyperbaric Medicine | DX: E11.621 Type 2 diabetes mellitus with foot ulcer (principal); L97.512 Non-pressure chronic ulcer of other part of right foot with fat layer exposed; I70.201 Unspecified atherosclerosis of native arteries of extremities, right leg; E11.36 Type 2 diabetes mellitus with diabetic cataract; E11.51 Type 2 diabetes mellitus with diabetic peripheral angiopathy without gangrene; I13.2 Hypertensive heart and chronic kidney disease with heart failure and with stage 5 chronic kidney disease, or end stage renal disease; E11.22 Type 2 diabetes mellitus with diabetic chronic kidney disease; N18.6 End stage renal disease; I50.814 Right heart failure due to left heart failure; I50.42 Chronic combined systolic (congestive) and diastolic (congestive) heart failure; L84 Corns and callosities; M10.9 Gout, unspecified; N40.1 Benign prostatic hyperplasia with lower urinary tract symptoms; E21.1 Secondary hyperparathyroidism, not elsewhere classified; I42.9 Cardiomyopathy, unspecified; I48.2 Chronic atrial fibrillation; E03.9 Hypothyroidism, unspecified; E21.3 Hyperparathyroidism, unspecified; E78.49 Other hyperlipidemia; I48.1 Persistent atrial fibrillation; I25.2 Old myocardial infarction; E78.00 Pure hypercholesterolemia, unspecified; K21.9 Gastro-esophageal reflux disease without esophagitis; I25.10 Atherosclerotic heart disease of native coronary artery without angina pectoris; E66.01 Morbid (severe) obesity due to excess calories; Z68.32 Body mass index [BMI] 32.0-32.9, adult; Z99.2 Dependence on renal dialysis; Z79.4 Long term (current) use of insulin; Z85.528 Personal history of other malignant neoplasm of kidney; Z87.891 Personal history of nicotine dependence; Z86.73 Personal history of transient ischemic attack (TIA), and cerebral infarction without residual deficits | CPT/HCPCS: 11042 ==

== ENCOUNTER → 2018-06-24 | Outpatient (CLI) | payer MEDICARE, BC | END | disposition home or self-care (01) | LOC: PMGWOUND 09:40 | PROVIDERS: ATTEND Emergency Medicine Undersea and Hyperbaric Medicine | DX: E11.621 Type 2 diabetes mellitus with foot ulcer (principal); L97.512 Non-pressure chronic ulcer of other part of right foot with fat layer exposed; I70.201 Unspecified atherosclerosis of native arteries of extremities, right leg; E11.36 Type 2 diabetes mellitus with diabetic cataract; E11.51 Type 2 diabetes mellitus with diabetic peripheral angiopathy without gangrene; E11.22 Type 2 diabetes mellitus with diabetic chronic kidney disease; I13.2 Hypertensive heart and chronic kidney disease with heart failure and with stage 5 chronic kidney disease, or end stage renal disease; N18.6 End stage renal disease; I50.814 Right heart failure due to left heart failure; I50.42 Chronic combined systolic (congestive) and diastolic (congestive) heart failure; L84 Corns and callosities; M10.9 Gout, unspecified; E21.1 Secondary hyperparathyroidism, not elsewhere classified; I48.2 Chronic atrial fibrillation; E03.9 Hypothyroidism, unspecified; E21.3 Hyperparathyroidism, unspecified; E78.49 Other hyperlipidemia; I48.1 Persistent atrial fibrillation; I25.2 Old myocardial infarction; E78.00 Pure hypercholesterolemia, unspecified; K21.9 Gastro-esophageal reflux disease without esophagitis; I25.10 Atherosclerotic heart disease of native coronary artery without angina pectoris; E66.01 Morbid (severe) obesity due to excess calories; Z68.32 Body mass index [BMI] 32.0-32.9, adult; Z99.2 Dependence on renal dialysis; Z79.4 Long term (current) use of insulin; Z85.528 Personal history of other malignant neoplasm of kidney; Z87.891 Personal history of nicotine dependence; Z86.73 Personal history of transient ischemic attack (TIA), and cerebral infarction without residual deficits | CPT/HCPCS: 11042 ==

== ENCOUNTER → 2018-07-03 | Outpatient (CLI) | payer MEDICARE, BC ==
[~2018-07-03] MED LIST changes: +AMLO5TAB10 PO
== END | disposition home or self-care (01) ==
LOC: PMGWOUND 12:00
PROVIDERS: ATTEND Emergency Medicine Undersea and Hyperbaric Medicine
DX: E11.621 Type 2 diabetes mellitus with foot ulcer (principal); L97.512 Non-pressure chronic ulcer of other part of right foot with fat layer exposed; I70.201 Unspecified atherosclerosis of native arteries of extremities, right leg; E11.36 Type 2 diabetes mellitus with diabetic cataract; E11.51 Type 2 diabetes mellitus with diabetic peripheral angiopathy without gangrene; I13.2 Hypertensive heart and chronic kidney disease with heart failure and with stage 5 chronic kidney disease, or end stage renal disease; E11.22 Type 2 diabetes mellitus with diabetic chronic kidney disease; N18.6 End stage renal disease; I50.814 Right heart failure due to left heart failure; I50.42 Chronic combined systolic (congestive) and diastolic (congestive) heart failure; L84 Corns and callosities; I48.1 Persistent atrial fibrillation; I48.2 Chronic atrial fibrillation; M10.9 Gout, unspecified; I42.9 Cardiomyopathy, unspecified; E21.3 Hyperparathyroidism, unspecified; E03.9 Hypothyroidism, unspecified; I25.2 Old myocardial infarction; E78.49 Other hyperlipidemia; E78.00 Pure hypercholesterolemia, unspecified; K21.9 Gastro-esophageal reflux disease without esophagitis; E21.1 Secondary hyperparathyroidism, not elsewhere classified; N40.1 Benign prostatic hyperplasia with lower urinary tract symptoms; I25.10 Atherosclerotic heart disease of native coronary artery without angina pectoris; E66.01 Morbid (severe) obesity due to excess calories; Z68.32 Body mass index [BMI] 32.0-32.9, adult; Z79.4 Long term (current) use of insulin; Z99.2 Dependence on renal dialysis; Z87.891 Personal history of nicotine dependence; Z85.528 Personal history of other malignant neoplasm of kidney; Z86.73 Personal history of transient ischemic attack (TIA), and cerebral infarction without residual deficits
CPT/HCPCS: 11042

== ENCOUNTER → 2018-07-08 | Outpatient (CLI) | payer MEDICARE, BC | END | disposition home or self-care (01) | LOC: PMGWOUND 10:01 | PROVIDERS: ATTEND Emergency Medicine Undersea and Hyperbaric Medicine | DX: E11.621 Type 2 diabetes mellitus with foot ulcer (principal); L97.512 Non-pressure chronic ulcer of other part of right foot with fat layer exposed; I70.201 Unspecified atherosclerosis of native arteries of extremities, right leg; E11.36 Type 2 diabetes mellitus with diabetic cataract; E11.51 Type 2 diabetes mellitus with diabetic peripheral angiopathy without gangrene; I13.2 Hypertensive heart and chronic kidney disease with heart failure and with stage 5 chronic kidney disease, or end stage renal disease; E11.22 Type 2 diabetes mellitus with diabetic chronic kidney disease; N18.6 End stage renal disease; I50.814 Right heart failure due to left heart failure; I50.42 Chronic combined systolic (congestive) and diastolic (congestive) heart failure; L84 Corns and callosities; I48.0 Paroxysmal atrial fibrillation; I48.1 Persistent atrial fibrillation; I48.2 Chronic atrial fibrillation; I42.9 Cardiomyopathy, unspecified; M10.9 Gout, unspecified; I25.2 Old myocardial infarction; E78.49 Other hyperlipidemia; E78.5 Hyperlipidemia, unspecified; E03.9 Hypothyroidism, unspecified; E21.3 Hyperparathyroidism, unspecified; E78.00 Pure hypercholesterolemia, unspecified; K21.9 Gastro-esophageal reflux disease without esophagitis; E21.1 Secondary hyperparathyroidism, not elsewhere classified; N40.1 Benign prostatic hyperplasia with lower urinary tract symptoms; I25.10 Atherosclerotic heart disease of native coronary artery without angina pectoris; E66.01 Morbid (severe) obesity due to excess calories; Z68.32 Body mass index [BMI] 32.0-32.9, adult; Z99.2 Dependence on renal dialysis; Z79.4 Long term (current) use of insulin; Z87.891 Personal history of nicotine dependence; Z85.528 Personal history of other malignant neoplasm of kidney; Z86.73 Personal history of transient ischemic attack (TIA), and cerebral infarction without residual deficits | CPT/HCPCS: 11042; 82962 ==

== ENCOUNTER → 2018-07-15 | Outpatient (CLI) | payer MEDICARE, BC | END | disposition home or self-care (01) | LOC: PMGWOUND 10:34 | PROVIDERS: ATTEND Emergency Medicine Undersea and Hyperbaric Medicine | DX: E11.621 Type 2 diabetes mellitus with foot ulcer (principal); L97.512 Non-pressure chronic ulcer of other part of right foot with fat layer exposed; I70.201 Unspecified atherosclerosis of native arteries of extremities, right leg; E11.36 Type 2 diabetes mellitus with diabetic cataract; E11.51 Type 2 diabetes mellitus with diabetic peripheral angiopathy without gangrene; I13.2 Hypertensive heart and chronic kidney disease with heart failure and with stage 5 chronic kidney disease, or end stage renal disease; E11.22 Type 2 diabetes mellitus with diabetic chronic kidney disease; N18.6 End stage renal disease; I50.814 Right heart failure due to left heart failure; I50.42 Chronic combined systolic (congestive) and diastolic (congestive) heart failure; L84 Corns and callosities; M10.9 Gout, unspecified; I48.0 Paroxysmal atrial fibrillation; I48.1 Persistent atrial fibrillation; I48.2 Chronic atrial fibrillation; I42.9 Cardiomyopathy, unspecified; I25.2 Old myocardial infarction; I48.91 Unspecified atrial fibrillation; E21.3 Hyperparathyroidism, unspecified; E03.9 Hypothyroidism, unspecified; E78.5 Hyperlipidemia, unspecified; E78.00 Pure hypercholesterolemia, unspecified; K21.9 Gastro-esophageal reflux disease without esophagitis; E21.1 Secondary hyperparathyroidism, not elsewhere classified; N40.1 Benign prostatic hyperplasia with lower urinary tract symptoms; I25.10 Atherosclerotic heart disease of native coronary artery without angina pectoris; E66.01 Morbid (severe) obesity due to excess calories; Z68.32 Body mass index [BMI] 32.0-32.9, adult; Z99.2 Dependence on renal dialysis; Z79.4 Long term (current) use of insulin; Z87.891 Personal history of nicotine dependence; Z85.528 Personal history of other malignant neoplasm of kidney; Z86.73 Personal history of transient ischemic attack (TIA), and cerebral infarction without residual deficits | CPT/HCPCS: 11042 ==

== ENCOUNTER → 2018-07-22 | Outpatient (CLI) | payer MEDICARE, BC | END | disposition home or self-care (01) | LOC: PMGWOUND 09:47 | PROVIDERS: ATTEND Emergency Medicine Undersea and Hyperbaric Medicine | DX: E11.621 Type 2 diabetes mellitus with foot ulcer (principal); L97.512 Non-pressure chronic ulcer of other part of right foot with fat layer exposed; I70.201 Unspecified atherosclerosis of native arteries of extremities, right leg; E11.36 Type 2 diabetes mellitus with diabetic cataract; E11.51 Type 2 diabetes mellitus with diabetic peripheral angiopathy without gangrene; I13.2 Hypertensive heart and chronic kidney disease with heart failure and with stage 5 chronic kidney disease, or end stage renal disease; E11.22 Type 2 diabetes mellitus with diabetic chronic kidney disease; N18.6 End stage renal disease; I50.814 Right heart failure due to left heart failure; I50.42 Chronic combined systolic (congestive) and diastolic (congestive) heart failure; L84 Corns and callosities; M10.9 Gout, unspecified; I48.0 Paroxysmal atrial fibrillation; I48.1 Persistent atrial fibrillation; I48.2 Chronic atrial fibrillation; I42.9 Cardiomyopathy, unspecified; I25.2 Old myocardial infarction; E03.9 Hypothyroidism, unspecified; I48.91 Unspecified atrial fibrillation; E78.5 Hyperlipidemia, unspecified; E21.3 Hyperparathyroidism, unspecified; E78.00 Pure hypercholesterolemia, unspecified; K21.9 Gastro-esophageal reflux disease without esophagitis; E21.1 Secondary hyperparathyroidism, not elsewhere classified; N40.1 Benign prostatic hyperplasia with lower urinary tract symptoms; I25.10 Atherosclerotic heart disease of native coronary artery without angina pectoris; E66.01 Morbid (severe) obesity due to excess calories; Z68.32 Body mass index [BMI] 32.0-32.9, adult; Z99.2 Dependence on renal dialysis; Z79.4 Long term (current) use of insulin; Z87.891 Personal history of nicotine dependence; Z85.528 Personal history of other malignant neoplasm of kidney; Z86.73 Personal history of transient ischemic attack (TIA), and cerebral infarction without residual deficits | CPT/HCPCS: 99214; G0463 ==

== ENCOUNTER 2018-07-27 18:45 | Inpatient (IN) | payer MEDICARE, BC ==
[~2018-07-27] VITALS: Ht 182.9 cm; Wt 117.0 kg
[~2018-07-27 18:45] MED LIST changes: -AMLO5TAB10 PO
[2018-07-27 19:00] VITALS: BP 140/47
[2018-07-27] MEDS ORDERED: ONDANSETRON PF 4 MG/2 ML VIAL. IV PRN (19:45)
[2018-07-27] MEDS ORDERED: HYDROcodone/APAP 5/325MG 1 TAB TABLET PO PRN (19:45)
[2018-07-27] MEDS ORDERED: ALBUTEROL SULFATE 2.5 MG/3 ML NEBU. NEB PRN (19:45)
[2018-07-27] MEDS ORDERED: TEMAZEPAM 7.5 MG CAPSULE PO PRN (19:45)
[2018-07-27] MEDS ORDERED: ACETAMINOPHEN 500 MG TABLET PO PRN (19:45)
[2018-07-27] MEDS: APIXABAN 5 MG TABLET. PO SCH (21:28)
[2018-07-27] MEDS: SEVELAMER CARBONATE 800 MG TABLET. PO SCH (21:29)
[2018-07-27] MEDS: SACUBITRIL/VALSARTAN 49/51MG TABLET. PO SCH (21:31)
[2018-07-27] MEDS: FERROUS SULFATE 325 MG TABLET. PO SCH (21:31)
[2018-07-27] MEDS: INSULIN GLARGINE 300 UNITS/3 ML INSULN.PEN. SQ SCH (21:34)
[2018-07-27 23:00] VITALS: BP 134/53
[2018-07-28 03:00] VITALS: BP 154/66
[2018-07-28 05:38] LABS: BASO # 0.1 x10^3/uL (0.0-0.2); BASO % 1 % (0-3); EOS # 0.2 x10^3/uL (0.0-0.7); EOS % 2 % (0-3); HEMOGLOBIN 8.7 g/dL (13.0-17.5); LYMPH % 7 % (24-48); MEAN CORPUSCULAR HEMOGLOBIN 34 pg (25-35); MEAN CORPUSCULAR HGB CONC 33 g/dL (31-37); MEAN CORPUSCULAR VOLUME 101 fL (79-100); MONO # 0.9 x10^3/uL (0.0-1.1); MONO % 6 % (0-9); NEUT # 11.7 x10^3uL (1.8-7.7); NEUT % 84 % (31-73); PLATELET COUNT 193 x10^3/uL (140-400); RED BLOOD COUNT 2.58 x10^6/uL (4.30-5.70); RED CELL DISTRIBUTION WIDTH 13.5 % (11.5-14.5); WHITE BLOOD COUNT 13.9 x10^3/uL (4.0-11.0)
[2018-07-28 06:11] LABS: CALCIUM 9.7 mg/dL (8.5-10.1); CREATININE 7.6 mg/dL (0.7-1.3); GFR 7.1; POTASSIUM 3.7 mmol/L (3.5-5.1)
[2018-07-28 07:00] VITALS: BP 175/88
--- NOTE | 2018-07-28 07:46 | PDOC1 ---
History and Physical Date of Admission Date of Admission DATE: 07/28/18 TIME: 07:44 Identification/Chief Complaint Chief Complaint Shortness of breath Source Source: Chart review, Patient History of Present Illness History of Present Illness Mr Jones is a 72 yo male w/ PMHx afib, CHF, ESRD on HD who initially presented to [facility] secondary to shortness of breath and feeling very weak and O2 saturations around . Noted during triage to have O2 sats in the mid 80s (84%). Known history of congestive heart failure, end-stage renal disease, and diabetes mellitus. Was admitted at [facility] for treatment of congestive heart failure and sepsis in December 2017. Currently denies any chest pain. Has been having increasing lower extremity edema. Denies dizziness, palpitations, diphoresis or recent sick contacts. States that he is unable to ambulate the past a few steps without getting severely short of breath currently. Last HD on Saturday . Currently states feeling fair. No specific complaints . Doesn't use O2 at home irvin the can recall NT Pro BNP >35,000. CXR with vascular congestion. Has chronic right great toes wound for which is is followed by wound care. Follows with [facility] for cardiac Past Medical History Cardiovascular: AFIB, CAD, CHF, HTN GI: Constipation, GERD Heme/Onc: Anemia NOS Renal/: Chronic renal failure, Other Endocrine: Diabetes, Hyperparathyroidism Past Surgical History Past Surgical History: Other Family History Family History: Hypertension Social History Smoke: No ALCOHOL: none Drugs: None Current Medications Current Medications Current Medications Acetaminophen (Tylenol) 500 mg PRN Q6HRS PRN PO MILD PAIN / TEMP; Start at 19:45 Ondansetron HCl (Zofran) 4 mg PRN Q6HRS PRN IV NAUSEA/VOMITING; Start 07/27/18 at 19:45 Acetaminophen/ Hydrocodone Bitart (Lortab 5/325) 1 tab PRN Q6HRS PRN PO MODERATE TO SEVER PAIN; Start 07/27/18 at 19:45 Albuterol Sulfate (Ventolin Neb Soln) 2.5 mg PRN Q6HRS PRN NEB SHORTNESS OF BREATH; Start 07/27/18 at 19:45 Temazepam (Restoril) 7.5 mg PRN QHS PRN PO INSOMNIA; Start 07/27/18 at 19:45 Allopurinol (Zyloprim) 100 mg DAILY PO ; Start 07/28/18 at 09:00 Apixaban (Eliquis) 5 mg BID PO Last administered on 07/27/18at 21:28; Start at 21:00 Carvedilol (Coreg) 6.25 mg BIDWMEALS PO ; Start 07/28/18 at 08:00 Cinacalcet (Sensipar) 60 mg DAILY PO ; Start 07/28/18 at 09:00 Ferrous Sulfate (Feosol) 325 mg TID PO Last administered on 07/27/18at 21:31; Start 07/27/18 at 21:00 Vitamin B Complex/ Vitamin C (Mindy-Maureen) 1 tab DAILY PO ; Start 07/28/18 at 09: 00 Furosemide (Lasix) 80 mg BID94 PO ; Start 07/28/18 at 09:00 Sevelamer Carbonate (Renvela) 2,400 mg TID PO Last administered on 07/27/18at 21 :29; Start 07/27/18 at 21:00 Non-Formulary Medication (Insulin Aspart (Novolog Flexpen)) TIDWMEALS SQ ; Start 07/28/18 at 08:00; Status UNV Insulin Glargine (Lantus) 20 units QHS SQ Last administered on 07/27/18at 21:34 ; Start 07/27/18 at 21:00 Atorvastatin Calcium (Lipitor) 5 mg DAILY PO ; Start 07/28/18 at 09:00 Sacubitril/ Valsartan (Entresto 49 Mg-51 Mg) 1 tab BID PO Last administered on 07/27/18at 21:31; Start 07/27/18 at 21:00 Active Scripts Active Mindy-Maureen Tablet (Folic Acid/Vitamin B Comp W-C) 0.8 Mg Tablet 1 Tab PO DAILY 30 Days Allopurinol 100 Mg Tablet 100 Mg PO DAILY Novolog Flexpen (Insulin Aspart) 100 Unit/1 Ml Insuln.pen 0 Units SQ TIDWMEALS 30 Days Levemir Flextouch (Insulin Detemir) 100 Unit/1 Ml Insuln.pen 20 Units SQ QHS 30 Days Reported Renvela (Sevelamer Carbonate) 800 Mg Tablet 3 Tab PO TID Entresto 49 mg-51 mg Tablet (Sacubitril/Valsartan) 1 Each Tablet 1 Each PO BID Lasix (Furosemide) 40 Mg Tablet 80 Mg PO BID Sensipar (Cinacalcet Hcl) 30 Mg Tablet 60 Mg PO DAILY Eliquis (Apixaban) 5 Mg Tablet 5 Mg PO BID Ferrous Sulfate 325 Mg Tablet 1 Tab PO TID Coreg (Carvedilol) 6.25 Mg Tablet 1 Tab PO BID does not take morning of dialysis Pravastatin Sodium 20 Mg Tablet 20 Mg PO DAILY Allergies Allergies: Coded Allergies: nut - unspecified (Verified Allergy, Intermediate, 01/13/18) lisinopril (Verified Adverse Reaction, Intermediate, Cough, 12/27/16) ROS General: YES: Fatigue, Malaise; No: Chills, Night Sweats, Appetite, Other PSYCHOLOGICAL ROS: No: Anxiety, Behavioral Disorder, Concentration difficultie , Decreased libido, Depression, Disorientation, Hallucinations, Hostility, Irritablity, Memory difficulties, Mood Swings, Obsessive thoughts, Physical abuse, Sexual abuse, Sleep disturbances, Suicidal ideation, Other Eyes: No Blurry vision, No Decreased vision, No Double vision, No Dry eyes, No Excessive tearing, No Eye Pain, No Itchy Eyes, No Loss of vision, No Photophobia , No Scotomata, No Uses contacts, No Uses glasses, No Other HEENT: No: Heacaches, Visual Changes, Hearing change, Nasal congestion, Nasal discharge, Oral lesions, Sinus pain, Sore Throat, Epistaxis, Sneezing, Snoring, Tinnitus, Vertigo, Vocal changes, Other ALLERGY AND IMMUNOLOGY: No: Hives, Insect Bite Sensitivity, Itchy/Watery Eyes, Nasal Congestion, Post Nasal Drip, Seasonal Allergies, Other Hematological and Lymphatic: No: Bleeding Problems, Blood Clots, Blood Transfusions, Brusing, Night Sweats, Pallor, Swollen Lymph Nodes, Other ENDOCRINE: No: Breast Changes, Galactorrhea, Hair Pattern Changes, Hot Flashes , Malaise/lethargy, Mood Swings, Palpitations, Polydipsia/polyuria, Skin Changes , Temperature Intolerance, Unexpected Weight Changes, Other Breast: No New/Changing Breast Lumps, No Nipple changes, No Nipple discharge, No Other Respiratory: YES: Cough, Orthopnea, Shortness of breath, SOB with excertion; No: Hemoptysis, Pleuritic Pain, Sputum Changes, Stridor, Tachypnea, Wheezing , Other Cardiovascular: yes Orthopnea, yes Paroxysmal Noc. Dyspnea, yes Edema; No Chest Pain, No Palpitations, No Lt Headedness, No Other Gastrointestinal: No Nausea, No Vomiting, No Abdominal Pain, No Diarrhea, No Constipation, No Melena, No Hematochezia, No Other Genitourinary: No Dysuria, No Frequency, No Incontinence, No Hematuria, No Retention, No Discharge, No Urgency, No Pain, No Flank Pain, No Other, No , No , No , No , No , No , No Musculoskeletal: Yes Gait Disturbance; No Joint Pain, No Joint Stiffness, No Joint Swelling, No Muscle Pain, No Muscular Weakness, No Pain In:, No Swelling In:, No Other Neurological: No Behavorial Changes, No Bowel/Bladder ControlChng, No Confusion , No Dizziness, No Gait Disturbance, No Headaches, No Impaired Coord/balance, No Memory Loss, No Numbness/Tingling, No Seizures, No Speech Problems, No Tremors, No Visual Changes, No Weakness, No Other Skin: No Dry Skin, No Eczema, No Hair Changes, No Lumps, No Mole Changes, No Mottling, No Nail Changes, No Pruritus, No Rash, No Skin Lesion Changes, No Other, No Acne Physical Exam General: Alert, Oriented X3, Cooperative, No acute distress HEENT: Atraumatic, PERRLA, EOMI, Mucous membr. moist/pink Lungs: Other (Bibasilar crackles) Heart: S1S2, no gallops, irregularly irregular Rectal Exam: not examined Extremities: No clubbing, No cyanosis, No tenderness/swelling, Other ( Decreased pulses, 1+ edema, right middle toe with ulcerationo) Skin: No rashes, No significant lesion Neuro: Normal speech, Strength at 5/5 X4 ext, Normal tone, Sensation intact, Cranial nerves 3-12 NL, Reflexes 2+ Psych/Mental Status: Mental status NL, Mood NL Vitals Vitals Vital Signs Date Time Temp Pulse Resp B/P (MAP) Pulse Ox O2 Delivery O2 Flow Rate FiO2 07/28/18 03:00 98.0 75 17 154/66 (95) 91 Room Air 98.0 07/27/18 20:15 2.0 Labs Labs Laboratory Tests Test 07/27/18 21:28 07/27/18 22:30 07/28/18 05:00 Glucose (Fingerstick) 163 mg/dL (70-99) Troponin I Quantitative 0.076 ng/mL (0.000-0.055) 0.074 ng/mL (0.000-0.055) White Blood Count 13.9 x10^3/uL (4.0-11.0) Red Blood Count 2.58 x10^6/uL (4.30-5.70) Hemoglobin 8.7 g/dL (13.0-17.5) Hematocrit 26.0 % (39.0-53.0) Mean Corpuscular Volume 101 fL (79-100) Mean Corpuscular Hemoglobin 34 pg (25-35) Mean Corpuscular Hemoglobin Concent 33 g/dL (31-37) Red Cell Distribution Width 13.5 % (11.5-14.5) Platelet Count 193 x10^3/uL (140-400) Neutrophils (%) (Auto) 84 % (31-73) Lymphocytes (%) (Auto) 7 % (24-48) Monocytes (%) (Auto) 6 % (0-9) Eosinophils (%) (Auto) 2 % (0-3) Basophils (%) (Auto) 1 % (0-3) Neutrophils # (Auto) 11.7 x10^3uL (1.8-7.7) Lymphocytes # (Auto) 1.0 x10^3/uL (1.0-4.8) Monocytes # (Auto) 0.9 x10^3/uL (0.0-1.1) Eosinophils # (Auto) 0.2 x10^3/uL (0.0-0.7) Basophils # (Auto) 0.1 x10^3/uL (0.0-0.2) Sodium Level 140 mmol/L (136-145) Potassium Level 3.7 mmol/L (3.5-5.1) Chloride Level 99 mmol/L (98-107) Carbon Dioxide Level 32 mmol/L (21-32) Anion Gap 9 (6-14) Blood Urea Nitrogen 63 mg/dL (8-26) Creatinine 7.6 mg/dL (0.7-1.3) Estimated GFR (Cockcroft-Gault) 7.1 Glucose Level 162 mg/dL (70-99) Calcium Level 9.7 mg/dL (8.5-10.1) Laboratory Tests Test 07/27/18 21:28 07/27/18 22:30 07/28/18 05:00 Glucose (Fingerstick) 163 mg/dL (70-99) Troponin I Quantitative 0.076 ng/mL (0.000-0.055) 0.074 ng/mL (0.000-0.055) White Blood Count 13.9 x10^3/uL (4.0-11.0) Red Blood Count 2.58 x10^6/uL (4.30-5.70) Hemoglobin 8.7 g/dL (13.0-17.5) Hematocrit 26.0 % (39.0-53.0) Mean Corpuscular Volume 101 fL (79-100) Mean Corpuscular Hemoglobin 34 pg (25-35) Mean Corpuscular Hemoglobin Concent 33 g/dL (31-37) Red Cell Distribution Width 13.5 % (11.5-14.5) Platelet Count 193 x10^3/uL (140-400) Neutrophils (%) (Auto) 84 % (31-73) Lymphocytes (%) (Auto) 7 % (24-48) Monocytes (%) (Auto) 6 % (0-9) Eosinophils (%) (Auto) 2 % (0-3) Basophils (%) (Auto) 1 % (0-3) Neutrophils # (Auto) 11.7 x10^3uL (1.8-7.7) Lymphocytes # (Auto) 1.0 x10^3/uL (1.0-4.8) Monocytes # (Auto) 0.9 x10^3/uL (0.0-1.1) Eosinophils # (Auto) 0.2 x10^3/uL (0.0-0.7) Basophils # (Auto) 0.1 x10^3/uL (0.0-0.2) Sodium Level 140 mmol/L (136-145) Potassium Level 3.7 mmol/L (3.5-5.1) Chloride Level 99 mmol/L (98-107) Carbon Dioxide Level 32 mmol/L (21-32) Anion Gap 9 (6-14) Blood Urea Nitrogen 63 mg/dL (8-26) Creatinine 7.6 mg/dL (0.7-1.3) Estimated GFR (Cockcroft-Gault) 7.1 Glucose Level 162 mg/dL (70-99) Calcium Level 9.7 mg/dL (8.5-10.1) VTE Prophylaxis Ordered VTE Prophylaxis Devices: No VTE Pharmacological Prophylaxi: Yes Assessment/Plan Assessment/Plan A/P: Shortness of breath - this is an acute diastolic CHF exacerbation. Will benefit from ultrafiltration at HD today. Cardiology consulted. Meds optimized Hypoxia - likely from CHF exacerbation, will wean O2 as tolerated. Htn - controlled. Cont meds dm2 controlled - will place on sliding scale basal bolus plus regimen ESRD on HD mwf pafib on eliquis, carvedilol h/o left renal Ca s/p nephrectomy rt toe chronic wound s/p i and d - will have wound care to see FEN - renal diet PPX - eliquis FULL CODE Inpatient for at least 2 midnights for acute CHF exacerbation NADJA PATRICIO MD Jul 28, 2018 07:46
[2018-07-28] MEDS ORDERED: CARVEDILOL 6.25 MG TABLET. PO SCH (08:00)
[2018-07-28] MEDS ORDERED: NON FORMULARY ITEM (Insulin Aspart (Novolog Flexpen) 0 UNITS) SQ SCH (08:00)
[2018-07-28] MEDS: APIXABAN 5 MG TABLET. PO SCH ×2 (08:33→20:30)
[2018-07-28] MEDS: SACUBITRIL/VALSARTAN 49/51MG TABLET. PO SCH ×2 (08:34→20:32)
[2018-07-28] MEDS: FERROUS SULFATE 325 MG TABLET. PO SCH ×3 (08:34→20:31)
[2018-07-28] MEDS: FUROSEMIDE 80 MG TABLET. PO SCH ×2 (08:35→17:18)
[2018-07-28] MEDS: ATORVASTATIN CALCIUM 10 MG TABLET. PO SCH (08:35)
[2018-07-28] MEDS: CINACALCET HCL 30 MG TABLET PO SCH (08:36)
[2018-07-28] MEDS: ALLOPURINOL 100 MG TABLET. PO SCH (08:36)
[2018-07-28] MEDS: FOLIC/VIT B COMP W-C (RENAL) TABLET. PO SCH (08:36)
[2018-07-28] MEDS: SEVELAMER CARBONATE 800 MG TABLET. PO SCH ×3 (08:41→20:31)
--- NOTE | 2018-07-28 09:45 | PDOC2 ---
CARDIAC CONSULT DATE OF CONSULT Date of Consult DATE: 07/28/18 TIME: 09:43 REASON FOR CONSULT Reason for Consult: CHF REFERRING PHYSICIAN Referring Physician: Dr. Ridley SOURCE Source: Chart review, Patient HISTORY OF PRESENT ILLNESS HISTORY OF PRESENT ILLNESS This is a 72 yo male who initially presented to [facility] secondary to shortness of breath for the last 2-3 days. Progressively worsening. Associated with orthopnea. No chest pain, palpitations, dizziness, diaphoresis, LE edema, or recent illness/fevers. Upon arrival to ED. NT Pro BNP >35,000. CXR with vascular congestion. Patient was transferred to [facility] for further evaluation and treatment Patient has a history of AFIB with anticoagulation therapy and ERSD on HD. Has not missed any HD. Also has chronic right great toes wound for which is is followed by wound care. Follows with [facility]. PAST MEDICAL HISTORY Cardiovascular: AFIB, CHF, HTN, Hyperlipidemia Pulmonary: Pneumonia CENTRAL NERVOUS SYSTEM: CVA GI: No pertinent hx Heme/Onc: Anemia NOS Psych: No pertinent hx Musculoskeletal: Osteoarthritis Rheumatologic: No pertinent hx, Gout Infectious disease: No pertinent hx ENT: No pertinent hx Renal/: Chronic renal failure (ESRD on HD), Renal Ca. Endocrine: Diabetes Dermatology: No pertinent hx PAST SURGICAL HISTORY Past Surgical History: Other (left nephrectomy ) FAMILY HISTORY Family History: Diabetes, Heart Disease, Hypertension SOCIAL HISTORY Smoke: Quit (1979) ALCOHOL: none Drugs: None Lives: with Family CURRENT MEDICATIONS CURRENT MEDICATIONS Current Medications Medications (Trade) Dose Ordered Sig/[place] Route PRN Reason Start Time Stop Time Status Last Admin Dose Admin Allopurinol (Zyloprim) 100 mg DAILY PO 07/28/18 09:00 07/28/18 08:36 Apixaban (Eliquis) 5 mg BID PO 07/27/18 21:00 07/28/18 08:33 Carvedilol (Coreg) 6.25 mg BIDWMEALS PO 07/28/18 08:00 07/28/18 08:33 Cinacalcet (Sensipar) 60 mg DAILY PO 07/28/18 09:00 07/28/18 08:36 Ferrous Sulfate (Feosol) 325 mg TID PO 07/27/18 21:00 07/28/18 08:34 Vitamin B Complex/ Vitamin C (Mindy-Maureen) 1 tab DAILY PO 07/28/18 09:00 07/28/18 08:36 Furosemide (Lasix) 80 mg BID94 PO 07/28/18 09:00 07/28/18 08:35 Sevelamer Carbonate (Renvela) 2,400 mg TID PO 07/27/18 21:00 07/28/18 08:41 Insulin Glargine (Lantus) 20 units QHS SQ 07/27/18 21:00 07/27/18 21:34 Atorvastatin Calcium (Lipitor) 5 mg DAILY PO 07/28/18 09:00 07/28/18 08:35 Sacubitril/ Valsartan (Entresto 49 Mg-51 Mg) 1 tab BID PO 07/27/18 21:00 07/28/18 08:34 ALLERGIES ALLERGIES: Coded Allergies: nut - unspecified (Verified Allergy, Intermediate, 01/13/18) lisinopril (Verified Adverse Reaction, Intermediate, Cough, 12/27/16) ROS Review of System 14 point ROS conducted with pertinent positives noted above in HPI. PHYSICAL EXAM General: Alert, Oriented X3, Cooperative, No acute distress HEENT: Atraumatic, Mucous membr. moist/pink Lungs: Normal air movement, Other (bibasilar crackles) Heart: Other (IRRR; tele AFIB) Abdomen: Soft Extremities: Other (trace bilateral LE edema ) Neuro: Normal speech, Sensation intact Psych/Mental Status: Mental status NL, Mood NL MUSCULOSKELETAL: Osteoarthritic changes both hands VITALS VITALS Vital Signs Date Time Temp Pulse Resp B/P (MAP) Pulse Ox O2 Delivery O2 Flow Rate FiO2 07/28/18 08:42 96 Nasal Cannula 3.0 07/28/18 08:34 98 177/103 07/28/18 07:00 98.5 18 98.5 LABS Lab: Laboratory Tests Test 07/27/18 21:28 07/27/18 22:30 07/28/18 05:00 07/28/18 08:15 Glucose (Fingerstick) 163 mg/dL (70-99) 169 mg/dL (70-99) Troponin I Quantitative 0.076 ng/mL (0.000-0.055) 0.074 ng/mL (0.000-0.055) White Blood Count 13.9 x10^3/uL (4.0-11.0) Red Blood Count 2.58 x10^6/uL (4.30-5.70) Hemoglobin 8.7 g/dL (13.0-17.5) Hematocrit 26.0 % (39.0-53.0) Mean Corpuscular Volume 101 fL (79-100) Mean Corpuscular Hemoglobin 34 pg (25-35) Mean Corpuscular Hemoglobin Concent 33 g/dL (31-37) Red Cell Distribution Width 13.5 % (11.5-14.5) Platelet Count 193 x10^3/uL (140-400) Neutrophils (%) (Auto) 84 % (31-73) Lymphocytes (%) (Auto) 7 % (24-48) Monocytes (%) (Auto) 6 % (0-9) Eosinophils (%) (Auto) 2 % (0-3) Basophils (%) (Auto) 1 % (0-3) Neutrophils # (Auto) 11.7 x10^3uL (1.8-7.7) Lymphocytes # (Auto) 1.0 x10^3/uL (1.0-4.8) Monocytes # (Auto) 0.9 x10^3/uL (0.0-1.1) Eosinophils # (Auto) 0.2 x10^3/uL (0.0-0.7) Basophils # (Auto) 0.1 x10^3/uL (0.0-0.2) Sodium Level 140 mmol/L (136-145) Potassium Level 3.7 mmol/L (3.5-5.1) Chloride Level 99 mmol/L (98-107) Carbon Dioxide Level 32 mmol/L (21-32) Anion Gap 9 (6-14) Blood Urea Nitrogen 63 mg/dL (8-26) Creatinine 7.6 mg/dL (0.7-1.3) Estimated GFR (Cockcroft-Gault) 7.1 Glucose Level 162 mg/dL (70-99) Calcium Level 9.7 mg/dL (8.5-10.1) ECHOCARDIOGRAM ECHOCARDIOGRAM <Conclusion> There is borderline to mild concentric left ventricular hypertrophy. Left ventricle systolic function is mildly impaired. The Ejection Fraction is 45-50%. The right ventricular systolic function is normal. The left atrium is moderately dilated. Doppler and Color Flow revealed trace mitral regurgitation. Doppler and Color Flow revealed trace tricuspid regurgitation. Doppler and Color Flow revealed trace to mild pulmonic valvular regurgitation. There is no evidence of significant pericardial effusion. DATE: 07/29/15 1331 <Conclusion> Left ventricle systolic function is mildly impaired. The Ejection Fraction is 40 -45%. There is global hypokinesis of the left ventricle. Doppler and Color-flow revealed mild to moderate mitral regurgitation. Doppler and Color Flow revealed mild to moderate pulmonic valvular regurgitation. DATE: 01/19/18 1528 STRESS TEST STRESS TEST Conclusion 1. Regadenoson cardioisotope stress test showed small to moderate infarction involving the base to mid lateral wall without any significant ischemia. 2. Moderate global left ventricle systolic dysfunction with ejection fraction calculated at 36%. 3. Low to intermediate risk for cardiac events. DATE: 06/06/16 1332 ASSESSMENT/PLAN ASSESSMENT/PLAN 1. Acute on chronic CHF: LVEF 45-50% (01/2018). On Entresto. Follows with [facility] cardiology 2. Hypertension; elevated. 3. Hyperlipidemia; lipids on goal 4. Mild troponin elevation; peak 0.076. Type II, demand ischemia in the setting of a/c HF and renal disease 5. Diabetes, II; as per PCP 6. Chronic RLE wound; followed by wound care clinic 7. ESRD on HD; MWF 8. Anemia of chronic disease 9. Chronic AFIB; rate controlled. on Eliquis for stroke prevention 10. H/o CVA Recommendations Continue Entresto, Lasix Increase Coreg for better BP control Check echo to assess LV systolic function Fluid offloading via HD as per nephrology Will check LE arterial duplex given chronic, non-healing wound Consider outpatient ischemic evaluation EVELYN FARFAN APRN Jul 28, 2018 09:45
--- NOTE | 2018-07-28 09:59 | PDOC2 ---
CONSULT Date of Consult Date of Consult DATE: 07/28/18 TIME: 09:49 Reason for Consult Reason for Consult: ESRD Source Source: Chart review History of Present Illness Reason for Visit: Pt is 72 yo male who initially presented to [facility] secondary to shortness of breath and feeling very weak . Noted during triage to have O2 sats in the mid 80s. Known history of congestive heart failure, end-stage renal disease, and diabetes mellitus. Was admitted at [facility] for treatment of congestive heart failure and sepsis in December 2017. Currently denies any chest pain. Has been having increasing lower extremity edema. States that he is unable to ambulate the past a few steps without getting severely short of breath currently. Last HD on Saturday . Currently states feeling fair. No specific complaints . Doesnt use O2 at Home Past Medical History Cardiovascular: AFIB, CAD, CHF, HTN GI: Constipation, GERD Heme/Onc: Anemia NOS Renal/: Chronic renal failure, Other Endocrine: Diabetes, Hyperparathyroidism Past Surgical History Past Surgical History: Other Family History Family History: Hypertension Social History ALCOHOL: none Drugs: None Lives: Alf Current Medications Current Medications Current Medications Acetaminophen (Tylenol) 500 mg PRN Q6HRS PRN PO MILD PAIN / TEMP; Start at 19:45 Ondansetron HCl (Zofran) 4 mg PRN Q6HRS PRN IV NAUSEA/VOMITING; Start 07/27/18 at 19:45 Acetaminophen/ Hydrocodone Bitart (Lortab 5/325) 1 tab PRN Q6HRS PRN PO MODERATE TO SEVER PAIN; Start 07/27/18 at 19:45 Albuterol Sulfate (Ventolin Neb Soln) 2.5 mg PRN Q6HRS PRN NEB SHORTNESS OF BREATH; Start 07/27/18 at 19:45 Temazepam (Restoril) 7.5 mg PRN QHS PRN PO INSOMNIA; Start 07/27/18 at 19:45 Allopurinol (Zyloprim) 100 mg DAILY PO Last administered on 07/28/18at 08:36; Start 07/28/18 at 09:00 Apixaban (Eliquis) 5 mg BID PO Last administered on 07/28/18at 08:33; Start at 21:00 Carvedilol (Coreg) 6.25 mg BIDWMEALS PO Last administered on 07/28/18 08:33; Start 07/28/18 at 08:00 Cinacalcet (Sensipar) 60 mg DAILY PO Last administered on 07/28/18 08:36; Start 07/28/18 at 09:00 Ferrous Sulfate (Feosol) 325 mg TID PO Last administered on 07/28/18 08:34; Start 07/27/18 at 21:00 Vitamin B Complex/ Vitamin C (Mindy-Maureen) 1 tab DAILY PO Last administered on 08:36; Start 07/28/18 at 09:00 Furosemide (Lasix) 80 mg [id number] PO Last administered on 07/28/18 08:35; Start 07/28/18 at 09:00 Sevelamer Carbonate (Renvela) 2,400 mg TID PO Last administered on 07/28/18 08 :41; Start 07/27/18 at 21:00 Non-Formulary Medication (Insulin Aspart (Novolog Flexpen)) TIDWMEALS SQ ; Start 07/28/18 at 08:00; Status UNV Insulin Glargine (Lantus) 20 units QHS SQ Last administered on 07/27/18 21:34 ; Start 07/27/18 at 21:00 Atorvastatin Calcium (Lipitor) 5 mg DAILY PO Last administered on 07/28/18 08: 35; Start 07/28/18 at 09:00 Sacubitril/ Valsartan (Entresto 49 Mg-51 Mg) 1 tab BID PO Last administered on 07/28/18 08:34; Start 07/27/18 at 21:00 Active Scripts Active Mindy-Maureen Tablet (Folic Acid/Vitamin B Comp W-C) 0.8 Mg Tablet 1 Tab PO DAILY 30 Days Allopurinol 100 Mg Tablet 100 Mg PO DAILY Novolog Flexpen (Insulin Aspart) 100 Unit/1 Ml Insuln.pen 0 Units SQ TIDWMEALS 30 Days Levemir Flextouch (Insulin Detemir) 100 Unit/1 Ml Insuln.pen 20 Units SQ QHS 30 Days Reported Renvela (Sevelamer Carbonate) 800 Mg Tablet 3 Tab PO TID Entresto 49 mg-51 mg Tablet (Sacubitril/Valsartan) 1 Each Tablet 1 Each PO BID Lasix (Furosemide) 40 Mg Tablet 80 Mg PO BID Sensipar (Cinacalcet Hcl) 30 Mg Tablet 60 Mg PO DAILY Eliquis (Apixaban) 5 Mg Tablet 5 Mg PO BID Ferrous Sulfate 325 Mg Tablet 1 Tab PO TID Coreg (Carvedilol) 6.25 Mg Tablet 1 Tab PO BID does not take morning of dialysis Pravastatin Sodium 20 Mg Tablet 20 Mg PO DAILY Allergies Allergies: Coded Allergies: nut - unspecified (Verified Allergy, Intermediate, 01/13/18) lisinopril (Verified Adverse Reaction, Intermediate, Cough, 12/27/16) ROS Review of System As per HPI Physical Exam Physical Exam GEN: NAD, Lying on his side HEEN: OM Moist, O2 by NC NECK: Supple CVS: RRR RESP: CT, No Acc. Muscle Use GI: Non Tender,soft : No CVA tenderness, No Suprapubic Tenderness, No [place] NEURO- AxO x 3 Skin - No Rash Vital Signs Vital Signs Date Time Temp Pulse Resp B/P (MAP) Pulse Ox O2 Delivery O2 Flow Rate FiO2 07/28/18 08:42 96 Nasal Cannula 3.0 07/28/18 08:34 98 177/103 07/28/18 07:00 98.5 18 98.5 Assessment & Plan ESRD - [facility]- DEZ borja- Dr. 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 CHF- Cardiology following On Entresto HTN- antihypertensives MBD- On Renvela Sec Hyperpara- Continue Cinacalcet Anemia- managed in OP unit as per Protocol Arasilas while inpatient DM- On insulin Discussed A/P with patient and coldfusion Labs Labs Laboratory Tests Test 07/27/18 21:28 07/27/18 22:30 07/28/18 05:00 07/28/18 08:15 Glucose (Fingerstick) 163 mg/dL (70-99) 169 mg/dL (70-99) Troponin I Quantitative 0.076 ng/mL (0.000-0.055) 0.074 ng/mL (0.000-0.055) White Blood Count 13.9 x10^3/uL (4.0-11.0) Red Blood Count 2.58 x10^6/uL (4.30-5.70) Hemoglobin 8.7 g/dL (13.0-17.5) Hematocrit 26.0 % (39.0-53.0) Mean Corpuscular Volume 101 fL (79-100) Mean Corpuscular Hemoglobin 34 pg (25-35) Mean Corpuscular Hemoglobin Concent 33 g/dL (31-37) Red Cell Distribution Width 13.5 % (11.5-14.5) Platelet Count 193 x10^3/uL (140-400) Neutrophils (%) (Auto) 84 % (31-73) Lymphocytes (%) (Auto) 7 % (24-48) Monocytes (%) (Auto) 6 % (0-9) Eosinophils (%) (Auto) 2 % (0-3) Basophils (%) (Auto) 1 % (0-3) Neutrophils # (Auto) 11.7 x10^3uL (1.8-7.7) Lymphocytes # (Auto) 1.0 x10^3/uL (1.0-4.8) Monocytes # (Auto) 0.9 x10^3/uL (0.0-1.1) Eosinophils # (Auto) 0.2 x10^3/uL (0.0-0.7) Basophils # (Auto) 0.1 x10^3/uL (0.0-0.2) Sodium Level 140 mmol/L (136-145) Potassium Level 3.7 mmol/L (3.5-5.1) Chloride Level 99 mmol/L (98-107) Carbon Dioxide Level 32 mmol/L (21-32) Anion Gap 9 (6-14) Blood Urea Nitrogen 63 mg/dL (8-26) Creatinine 7.6 mg/dL (0.7-1.3) Estimated GFR (Cockcroft-Gault) 7.1 Glucose Level 162 mg/dL (70-99) Calcium Level 9.7 mg/dL (8.5-10.1) Laboratory Tests Test 07/27/18 21:28 07/27/18 22:30 07/28/18 05:00 07/28/18 08:15 Glucose (Fingerstick) 163 mg/dL (70-99) 169 mg/dL (70-99) Troponin I Quantitative 0.076 ng/mL (0.000-0.055) 0.074 ng/mL (0.000-0.055) White Blood Count 13.9 x10^3/uL (4.0-11.0) Red Blood Count 2.58 x10^6/uL (4.30-5.70) Hemoglobin 8.7 g/dL (13.0-17.5) Hematocrit 26.0 % (39.0-53.0) Mean Corpuscular Volume 101 fL (79-100) Mean Corpuscular Hemoglobin 34 pg (25-35) Mean Corpuscular Hemoglobin Concent 33 g/dL (31-37) Red Cell Distribution Width 13.5 % (11.5-14.5) Platelet Count 193 x10^3/uL (140-400) Neutrophils (%) (Auto) 84 % (31-73) Lymphocytes (%) (Auto) 7 % (24-48) Monocytes (%) (Auto) 6 % (0-9) Eosinophils (%) (Auto) 2 % (0-3) Basophils (%) (Auto) 1 % (0-3) Neutrophils # (Auto) 11.7 x10^3uL (1.8-7.7) Lymphocytes # (Auto) 1.0 x10^3/uL (1.0-4.8) Monocytes # (Auto) 0.9 x10^3/uL (0.0-1.1) Eosinophils # (Auto) 0.2 x10^3/uL (0.0-0.7) Basophils # (Auto) 0.1 x10^3/uL (0.0-0.2) Sodium Level 140 mmol/L (136-145) Potassium Level 3.7 mmol/L (3.5-5.1) Chloride Level 99 mmol/L (98-107) Carbon Dioxide Level 32 mmol/L (21-32) Anion Gap 9 (6-14) Blood Urea Nitrogen 63 mg/dL (8-26) Creatinine 7.6 mg/dL (0.7-1.3) Estimated GFR (Cockcroft-Gault) 7.1 Glucose Level 162 mg/dL (70-99) Calcium Level 9.7 mg/dL (8.5-10.1) Review All relevant outside records, renal labs, imaging studies, telemetry/EKG's were reviewed. TREVIN CERNA MD Jul 28, 2018 09:59
[2018-07-28] MEDS ORDERED: DEXTROSE 50% 25 GM / 50ML DISP.SYRIN. IV PRN (10:15)
[2018-07-28] MEDS ORDERED: IV NORMAL SALINE 1000ML BAG 1,000 ML IV PRN ×2 (10:24)
[2018-07-28] MEDS ORDERED: diphenhydrAMINE 50 MG/ML VIAL IV PRN ×2 (10:30)
[2018-07-28] MEDS ORDERED: DIALYSIS PATIENT. MC PRN (10:30)
[2018-07-28 10:31] LABS: CHOLESTEROL/HDL RATIO 4.4
[2018-07-28 11:00] VITALS: BP 140/71
[2018-07-28] MEDS: ANTI-COAG MONITOR BY PHARMACY. MC PRN (11:59)
[2018-07-28] MEDS: INSULIN LISPRO 300 UNITS/3 ML INSULN.PEN. SQ SCH ×4 (12:00→17:20)
[2018-07-28] MEDS ORDERED: CARVEDILOL 6.25 MG TABLET. PO ONE (14:45)
[2018-07-28 15:00] VITALS: BP 138/74
--- NOTE | 2018-07-28 15:57 | NUR ---
Wound Consult: Pt known to wound clinic, being followed for L toe DFU. Pt off unit in HD during 2 different attempts to visit. Will follow up 07/29/18
[2018-07-28] MEDS: CARVEDILOL 12.5 MG TABLET. PO SCH (17:19)
[2018-07-28 19:00] VITALS: BP 141/52
[2018-07-28] MEDS: INSULIN GLARGINE 300 UNITS/3 ML INSULN.PEN. SQ SCH (20:44)
[2018-07-28 23:00] VITALS: BP 130/53
[2018-07-29 03:07] VITALS: BP 122/44
[2018-07-29 07:00] VITALS: BP 124/57
[2018-07-29] MEDS: INSULIN LISPRO 300 UNITS/3 ML INSULN.PEN. SQ SCH ×6 (08:12→17:21)
[2018-07-29] MEDS: ALLOPURINOL 100 MG TABLET. PO SCH (08:17)
[2018-07-29] MEDS: CARVEDILOL 12.5 MG TABLET. PO SCH (08:17)
[2018-07-29] MEDS: FERROUS SULFATE 325 MG TABLET. PO SCH ×3 (08:17→21:08)
[2018-07-29] MEDS: FUROSEMIDE 80 MG TABLET. PO SCH ×2 (08:17→15:14)
[2018-07-29] MEDS: CINACALCET HCL 30 MG TABLET PO SCH (08:18)
[2018-07-29] MEDS: SACUBITRIL/VALSARTAN 49/51MG TABLET. PO SCH ×2 (08:18→21:08)
[2018-07-29] MEDS: ATORVASTATIN CALCIUM 10 MG TABLET. PO SCH (08:18)
[2018-07-29] MEDS: SEVELAMER CARBONATE 800 MG TABLET. PO SCH ×3 (08:19→21:07)
--- NOTE | 2018-07-29 08:19 | PDOC ---
PROGRESS NOTES Chief Complaint Chief Complaint A/P: Shortness of breath - this is an acute diastolic CHF exacerbation. Will benefit from ultrafiltration at HD today. Cardiology consulted. Meds optimized Hypoxia - likely from CHF exacerbation, will wean O2 as tolerated. Htn - controlled. Cont meds dm2 controlled - will place on sliding scale basal bolus plus regimen ESRD on HD mwf pafib on eliquis, carvedilol h/o left renal Ca s/p nephrectomy rt toe chronic wound s/p i and d - will have wound care to see FEN - renal diet PPX - eliquis FULL CODE Inpatient for at least 2 midnights for acute CHF exacerbation History of Present Illness History of Present Illness Mr Jones is a 72 yo male w/ PMHx afib, CHF, ESRD on HD who initially presented to [facility] secondary to shortness of breath and feeling very weak and O2 saturations around . Noted during triage to have O2 sats in the mid 80s (84%). Known history of congestive heart failure, end-stage renal disease, and diabetes mellitus. Was admitted at [facility] for treatment of congestive heart failure and sepsis in December 2017. Currently denies any chest pain. Has been having increasing lower extremity edema. Denies dizziness, palpitations, diphoresis or recent sick contacts. States that he is unable to ambulate the past a few steps without getting severely short of breath currently. NT Pro BNP >35,000. CXR with vascular congestion. Has chronic right great toes wound for which is is followed by wound care. Tolerated dialysis well yesterday with 4L UF. He feels much less short of breath , still with right great toe pain. Arterial doppler with no occlusion on right. Echo shows worsened EF. 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 Plan: Labs today Likely needs more UF Needs dry weight, further diuresis likely Determine ischemic workup from cardiac standpoint Wean O2 as tolerated Vitals Vitals Vital Signs Date Time Temp Pulse Resp B/P (MAP) Pulse Ox O2 Delivery O2 Flow Rate FiO2 07/29/18 03:07 97.9 71 20 122/44 (70) 94 Nasal Cannula 97.9 07/28/18 19:54 3.0 Physical Exam General: Alert, Oriented X3, Cooperative, No acute distress Heart: Other (IRRR; tele AFIB) Lungs: Clear Abdomen: Soft Extremities: No clubbing, No cyanosis, No tenderness/swelling, Other ( Decreased pulses, 1+ edema, right middle toe with ulcerationo) Skin: No rashes, No significant lesion Labs LABS Laboratory Tests Test 07/28/18 16:14 07/28/18 20:40 Glucose (Fingerstick) 103 mg/dL (70-99) 195 mg/dL (70-99) Comment Review of Relevant I have reviewed the following items jennifer (where applicable) has been applied. Labs Laboratory Tests Test 07/27/18 21:28 07/27/18 22:30 07/28/18 05:00 07/28/18 08:15 Glucose (Fingerstick) 163 mg/dL (70-99) 169 mg/dL (70-99) Troponin I Quantitative 0.076 ng/mL (0.000-0.055) 0.074 ng/mL (0.000-0.055) White Blood Count 13.9 x10^3/uL (4.0-11.0) Red Blood Count 2.58 x10^6/uL (4.30-5.70) Hemoglobin 8.7 g/dL (13.0-17.5) Hematocrit 26.0 % (39.0-53.0) Mean Corpuscular Volume 101 fL (79-100) Mean Corpuscular Hemoglobin 34 pg (25-35) Mean Corpuscular Hemoglobin Concent 33 g/dL (31-37) Red Cell Distribution Width 13.5 % (11.5-14.5) Platelet Count 193 x10^3/uL (140-400) Neutrophils (%) (Auto) 84 % (31-73) Lymphocytes (%) (Auto) 7 % (24-48) Monocytes (%) (Auto) 6 % (0-9) Eosinophils (%) (Auto) 2 % (0-3) Basophils (%) (Auto) 1 % (0-3) Neutrophils # (Auto) 11.7 x10^3uL (1.8-7.7) Lymphocytes # (Auto) 1.0 x10^3/uL (1.0-4.8) Monocytes # (Auto) 0.9 x10^3/uL (0.0-1.1) Eosinophils # (Auto) 0.2 x10^3/uL (0.0-0.7) Basophils # (Auto) 0.1 x10^3/uL (0.0-0.2) Sodium Level 140 mmol/L (136-145) Potassium Level 3.7 mmol/L (3.5-5.1) Chloride Level 99 mmol/L (98-107) Carbon Dioxide Level 32 mmol/L (21-32) Anion Gap 9 (6-14) Blood Urea Nitrogen 63 mg/dL (8-26) Creatinine 7.6 mg/dL (0.7-1.3) Estimated GFR (Cockcroft-Gault) 7.1 Glucose Level 162 mg/dL (70-99) Calcium Level 9.7 mg/dL (8.5-10.1) Triglycerides Level 84 mg/dL (0-150) Cholesterol Level 120 mg/dL (0-200) LDL Cholesterol, Calculated 76 mg/dL (0-100) VLDL Cholesterol, Calculated 17 mg/dL (0-40) Non-HDL Cholesterol Calculated 93 mg/dL (0-129) HDL Cholesterol 27 mg/dL (40-60) Cholesterol/HDL Ratio 4.4 Test 07/28/18 16:14 07/28/18 20:40 Glucose (Fingerstick) 103 mg/dL (70-99) 195 mg/dL (70-99) Laboratory Tests Test 07/28/18 16:14 07/28/18 20:40 Glucose (Fingerstick) 103 mg/dL (70-99) 195 mg/dL (70-99) Medications Current Medications Acetaminophen (Tylenol) 500 mg PRN Q6HRS PRN PO MILD PAIN / TEMP; Start at 19:45 Ondansetron HCl (Zofran) 4 mg PRN Q6HRS PRN IV NAUSEA/VOMITING; Start 07/27/18 at 19:45 Acetaminophen/ Hydrocodone Bitart (Lortab 5/325) 1 tab PRN Q6HRS PRN PO MODERATE TO SEVER PAIN; Start 07/27/18 at 19:45 Albuterol Sulfate (Ventolin Neb Soln) 2.5 mg PRN Q6HRS PRN NEB SHORTNESS OF BREATH; Start 07/27/18 at 19:45 Temazepam (Restoril) 7.5 mg PRN QHS PRN PO INSOMNIA; Start 07/27/18 at 19:45 Allopurinol (Zyloprim) 100 mg DAILY PO Last administered on 07/28/18 08:36; Start 07/28/18 at 09:00 Apixaban (Eliquis) 5 mg BID PO Last administered on 07/28/18 20:30; Start at 21:00 Carvedilol (Coreg) 6.25 mg BIDWMEALS PO Last administered on 07/28/18 08:33; Start 07/28/18 at 08:00; Stop 07/28/18 at 14:46; Status DC Cinacalcet (Sensipar) 60 mg DAILY PO Last administered on 07/28/18 08:36; Start 07/28/18 at 09:00 Ferrous Sulfate (Feosol) 325 mg TID PO Last administered on 07/28/18 20:31; Start 07/27/18 at 21:00 Vitamin B Complex/ Vitamin C (Mindy-Maureen) 1 tab DAILY PO Last administered on 08:36; Start 07/28/18 at 09:00 Furosemide (Lasix) 80 mg [id number] PO Last administered on 07/28/18 17:18; Start 07/28/18 at 09:00 Sevelamer Carbonate (Renvela) 2,400 mg TID PO Last administered on 07/28/18 20 :31; Start 07/27/18 at 21:00 Non-Formulary Medication (Insulin Aspart (Novolog Flexpen)) TIDWMEALS SQ ; Start 07/28/18 at 08:00; Stop 07/28/18 at 10:12; Status DC Insulin Glargine (Lantus) 20 units QHS SQ Last administered on 07/28/18 20:44 ; Start 07/27/18 at 21:00 Atorvastatin Calcium (Lipitor) 5 mg DAILY PO Last administered on 07/28/18 08: 35; Start 07/28/18 at 09:00 Sacubitril/ Valsartan (Entresto 49 Mg-51 Mg) 1 tab BID PO Last administered on 07/28/18 20:32; Start 07/27/18 at 21:00 Insulin Human Lispro (HumaLOG) 3 units TIDWMEALS SQ Last administered on 3/19/ 19at 08:12; Start 07/28/18 at 12:00 Insulin Human Lispro (HumaLOG) 0-5 UNITS TIDWMEALS SQ Last administered on 07/29at 08:13; Start 07/28/18 at 12:00 Dextrose (Dextrose 50%-Water Syringe) 12.5 gm PRN Q15MIN PRN IV SEE COMMENTS; Start 07/28/18 at 10:15 Sodium Chloride 1,000 ml @ 1,000 mls/hr Q1H PRN IV hypotension; Start 07/28/18 at 10:24; Stop 07/28/18 at 16:23; Status DC Diphenhydramine HCl (Benadryl) 25 mg 1X PRN PRN IV ITCHING; Start 07/28/18 at 10:30; Stop 07/29/18 at 10:29 Diphenhydramine HCl (Benadryl) 25 mg 1X PRN PRN IV ITCHING; Start 07/28/18 at 10:30; Stop 07/29/18 at 10:29 Sodium Chloride 1,000 ml @ 400 mls/hr Q2H30M PRN IV PATENCY; Start 07/28/18 at 10:24; Stop 07/28/18 at 22:23; Status DC Info (PHARMACY MONITORING -- do not chart) 1 each PRN DAILY PRN MC SEE COMMENTS ; Start 07/28/18 at 10:30 Info (Anti-Coagulation Monitoring By Pharmacy) 1 each PRN DAILY PRN MC SEE COMMENTS Last administered on 07/28/18at 11:59; Start 07/28/18 at 12:00 Carvedilol (Coreg) 12.5 mg BIDWMEALS PO Last administered on 07/28/18at 17:19; Start 07/28/18 at 17:00 Carvedilol (Coreg) 6.25 mg 1X ONCE PO Last administered on 07/28/18at 16:27; Start 07/28/18 at 14:45; Stop 07/28/18 at 14:47; Status DC Active Scripts Active Mindy-Maureen Tablet (Folic Acid/Vitamin B Comp W-C) 0.8 Mg Tablet 1 Tab PO DAILY 30 Days Allopurinol 100 Mg Tablet 100 Mg PO DAILY Novolog Flexpen (Insulin Aspart) 100 Unit/1 Ml Insuln.pen 0 Units SQ TIDWMEALS 30 Days Levemir Flextouch (Insulin Detemir) 100 Unit/1 Ml Insuln.pen 20 Units SQ QHS 30 Days Reported Renvela (Sevelamer Carbonate) 800 Mg Tablet 3 Tab PO TID Entresto 49 mg-51 mg Tablet (Sacubitril/Valsartan) 1 Each Tablet 1 Each PO BID Lasix (Furosemide) 40 Mg Tablet 80 Mg PO BID Sensipar (Cinacalcet Hcl) 30 Mg Tablet 60 Mg PO DAILY Eliquis (Apixaban) 5 Mg Tablet 5 Mg PO BID Ferrous Sulfate 325 Mg Tablet 1 Tab PO TID Coreg (Carvedilol) 6.25 Mg Tablet 1 Tab PO BID does not take morning of dialysis Pravastatin Sodium 20 Mg Tablet 20 Mg PO DAILY Vitals/I & O Vital Sign - Last 24 Hours 07/28/18 07/28/18 07/28/18 07/28/18 08:33 08:34 08:42 11:00 Temp 98.2 98.2 Pulse 98 98 62 Resp 16 B/P (MAP) 177/103 177/103 140/71 (94) Pulse Ox 96 99 O2 Delivery Nasal Cannula Room Air O2 Flow Rate 3.0 07/28/18 07/28/18 07/28/18 07/28/18 15:00 16:27 17:19 19:00 Temp 98.3 98.5 98.3 98.5 Pulse 83 83 83 74 Resp 16 20 B/P (MAP) 138/74 (95) 138/74 138/74 141/52 (81) Pulse Ox 95 91 O2 Delivery Room Air Nasal Cannula 07/28/18 07/28/18 07/28/18 07/29/18 19:54 20:32 23:00 03:07 Temp 98.8 97.9 98.8 97.9 Pulse 74 74 71 Resp 20 20 B/P (MAP) 141/52 130/53 (78) 122/44 (70) Pulse Ox 95 94 O2 Delivery Nasal Cannula Nasal Cannula Nasal Cannula O2 Flow Rate 3.0 Images ECHO - The systolic function is moderately impaired. EF 35-40%. There is global hypokinesis of the left ventricle. The right ventricle is mildly to moderately dilated. Doppler and Color Flow revealed mild tricuspid regurgitation with an estimated PAP of 40 mmHg. Doppler and Color Flow revealed mild pulmonic valvular regurgitation. NADJA PATRICIO MD Jul 29, 2018 08:19
--- NOTE | 2018-07-29 08:45 | NUR ---
SW following pt for anticipated dc needs. Chart reviewed. Pt lives at home with spouse. PT/OT pending. No discharge recommendation noted at this time. SW will continue to assess dc needs. Addendum: 07/29/18 at 1620 by KEE SEE SW Pt declined PT evaluation stating he is independent with ADL's. OT recommends home with assistance. Will continue to assess dc needs.
--- NOTE | 2018-07-29 10:03 | RAD ---
MR#: [id number] Date of Study: 07/28/2018 Ordering Physician: EVELYN FARFAN, Referring Physician: VICTOR M PINA Tech: Julius Okeefe MBA, RDMS, RVT, RDCS, RTR APPROVED REPORT Patient Location: IN-PATIENT Indications Non-healing Ulcer: Right VELOCITY AND DOPPLER WAVEFORM ANALYSIS RIGHT cm/secWaveformSeverity LEFT cm/secWaveform Severity dCFA 100.0BiphasicdCFA Prof Fem Art. 79.0BiphasicProf Fem Art. Fem Art Prox. 108.0BiphasicFem Art Prox. Fem Art Mid. 102.0BiphasicFem Art Mid. Fem Art Dist. 56.0BiphasicFem Art Dist. Pop Art(Fossa) 64.0BiphasicPop Art(AK) DIRECTOR ONLINE MARKETING Prox. 32.0BiphasicPTA Prox. DIRECTOR ONLINE MARKETING Dist. 76.0BiphasicPTA Dist. Per Art Mid. 44.0BiphasicPer Art Mid. MARCO Prox. 62.0BiphasicATA Prox. DPA 65MonophasicDPA Image Findings Grayscale images of the right lower extremity arterial vessels do not reveal any significant obstruct mirela disease. Spectral waveforms are mostly biphasic and within normal limits. No high flow velocities are noted. N o significant stenosis by velocity criteria. There is three-vessel runoff below the knee. Critical Notification Critical Value: No <Conclusion> No significant right lower extremity arterial disease. Signed by : Art Romano, Electronically Approved : 07/29/2018 10:02:47
--- NOTE | 2018-07-29 10:12 | PDOC ---
SUBJECTIVE ROS States feeling much better OBJECTIVE Vital Signs Vital Signs Date Time Temp Pulse Resp B/P (MAP) Pulse Ox O2 Delivery O2 Flow Rate FiO2 07/29/18 08:18 71 122/44 07/29/18 07:00 97.7 16 99 Nasal Cannula 3.0 97.7 I & 0 Intake and Output 07/29/18 06:59 # Voids 3 PHYSICAL EXAM Physical Exam GEN: NAD, Lying on his side HEEN: OM Moist, O2 by NC NECK: Supple CVS: RRR RESP: CT, No Acc. Muscle Use GI: Non Tender,soft : No CVA tenderness, No Suprapubic Tenderness, No [place] NEURO- AxO x 3 Skin - No Rash DIAGNOSIS/ASSESSMENT Assessment & Plan ESRD - [facility]- DEZ borja- Dr. Medina Currently no indication for HD today Tomorrow as per schedule, if dced will go back to his OP unit CHF- Cardiology following On Entresto HTN- antihypertensives MBD- On Renvela Sec Hyperpara- Continue Cinacalcet Anemia- managed in OP unit as per Protocol Aranesp while inpatient DM- On insulin Discussed A/P with patient COMMENT/RELEVANT DATA Meds Current Medications Medications (Trade) Dose Ordered Sig/Esperanza Start Time Stop Time Status Last Admin Dose Admin Acetaminophen (Tylenol) 500 mg PRN Q6HRS PRN 07/27/18 19:45 Acetaminophen/ Hydrocodone Bitart (Lortab 5/325) 1 tab PRN Q6HRS PRN 07/27/18 19:45 Albuterol Sulfate (Ventolin Neb Soln) 2.5 mg PRN Q6HRS PRN 07/27/18 19:45 Allopurinol (Zyloprim) 100 mg DAILY 07/28/18 09:00 07/29/18 08:17 100 MG Apixaban (Eliquis) 5 mg BID 07/27/18 21:00 07/28/18 20:30 5 MG Atorvastatin Calcium (Lipitor) 5 mg DAILY 07/28/18 09:00 07/29/18 08:18 5 MG Carvedilol (Coreg) 6.25 mg 1X ONCE 07/28/18 14:45 07/28/18 14:47 DC 07/28/18 16:27 6.25 MG Cinacalcet (Sensipar) 60 mg DAILY 07/28/18 09:00 07/29/18 08:18 60 MG Dextrose (Dextrose 50%-Water Syringe) 12.5 gm PRN Q15MIN PRN 07/28/18 10:15 Diphenhydramine HCl (Benadryl) 25 mg 1X PRN PRN 07/28/18 10:30 07/29/18 10:29 Ferrous Sulfate (Feosol) 325 mg TID 07/27/18 21:00 07/29/18 08:17 325 MG Furosemide (Lasix) 80 mg [id number] 07/28/18 09:00 07/29/18 08:17 80 MG Info (Anti-Coagulation Monitoring By Pharmacy) 1 each PRN DAILY PRN 07/28/18 12:00 07/28/18 11:59 1 EACH Info (PHARMACY MONITORING -- do not chart) 1 each PRN DAILY PRN 07/28/18 10:30 Insulin Glargine (Lantus) 20 units QHS 07/27/18 21:00 07/28/18 20:44 20 UNITS Insulin Human Lispro (HumaLOG) 0-5 UNITS TIDWMEALS 07/28/18 12:00 07/29/18 08:13 2 UNITS Non-Formulary Medication (Insulin Aspart (Novolog Flexpen)) TIDWMEALS 07/28/18 08:00 07/28/18 10:12 DC Ondansetron HCl (Zofran) 4 mg PRN Q6HRS PRN 07/27/18 19:45 Sacubitril/ Valsartan (Entresto 49 Mg-51 Mg) 1 tab BID 07/27/18 21:00 07/29/18 08:18 1 TAB Sevelamer Carbonate (Renvela) 2,400 mg TID 07/27/18 21:00 07/29/18 08:19 2,400 MG Sodium Chloride 1,000 ml @ 400 mls/hr Q2H30M PRN 07/28/18 10:24 07/28/18 22:23 DC Temazepam (Restoril) 7.5 mg PRN QHS PRN 07/27/18 19:45 Vitamin B Complex/ Vitamin C (Mindy-Maureen) 1 tab DAILY 07/28/18 09:00 07/28/18 08:36 1 TAB Lab Laboratory Tests Test 07/28/18 16:14 07/28/18 20:40 07/29/18 08:22 Glucose (Fingerstick) 103 mg/dL (70-99) 195 mg/dL (70-99) 135 mg/dL (70-99) Results All relevant outside records, renal labs, imaging studies, telemetry/EKG's were reviewed. TREVIN CERNA MD Jul 29, 2018 10:12
[2018-07-29] MEDS: APIXABAN 5 MG TABLET. PO SCH ×2 (10:23→21:08)
[2018-07-29] MEDS: FOLIC/VIT B COMP W-C (RENAL) TABLET. PO SCH (10:32)
--- NOTE | 2018-07-29 11:10 | CARD ---
MR#: [id number] Date of Study: 07/29/2018 Ordering Physician: EVELYN FARFAN, Referring Physician: VICTOR M PINA Tech: Maribeth Beltranlinkfelicia APPROVED REPORT EXAM: Two-dimensional and M-mode echocardiogram with Doppler and color Doppler. Other Information Quality : AverageHR: 63bpm INDICATION Dyspnea Atrial Fibrillation Congestive Heart Failure RISK FACTORS Hypertension Diabetes 2D DIMENSIONS RVDd3.9 (2.9-3.5cm)Left Atrium(2D)5.4 (1.6-4.0cm) IVSd1.1 (0.7-1.1cm)Aortic Root(2D)3.5 (2.0-3.7cm) LVDd6.9 (3.9-5.9cm)LVOT Diameter2.4 (1.8-2.4cm) PWd1.2 (0.7-1.1cm)LVDs5.6 (2.5-4.0cm) FS (%) 19.3 %SV96.3 ml LVEF(%)38.6 (>50%) Aortic Valve AoV Peak Curt.162.6cm/sAoV VTI28.8cm AO Peak GR.10.6mmHgLVOT Peak Curt.81.5cm/s LVOT VTI 17.08cmAO Mean GR.5mmHg MINDY (VMAX)1.49fo0RQX (VTI)2.79cm2 Mitral Valve MV E Ljmjchmu27.6cm/sMV E Peak Gr.64mmHg MV DECEL DCWV365rgRS A Djgazxzf58.2cm/s MV E Mean Gr.2mmHgMV GFO97vm E/A Ratio2.4MVA (PHT)5.31cm2 TDI E/Lateral E'10.3E/Medial E'11.9 Pulmonary Valve PV Peak Zbhswfdc952.0cm/sPV Peak Grad.5mmHg Tricuspid Valve TR P. Umrkwnlb272oc/sRAP XDWLLAKW2aeQm TR Peak Gr.68huQnPPLW86ggUn Pulmonary Vein S1 Ledtywrs65.4cm/sD2 Koolkkto35.0cm/s LEFT VENTRICLE The Left Ventricle is moderately dilated. There is borderline concentric left ventricular hypertrophy . The systolic function is moderately impaired. EF 35-40%. There is global hypokinesis of the left ve ntricle. Tissue Doppler imaging reveals moderate left ventricular diastolic dysfunction. RIGHT VENTRICLE The right ventricle is mildly to moderately dilated. The right ventricle is borderline hypertrophied. RV Systolic function is borderline reduced. ATRIA The left atrium is mildly dilated. The right atrium is severely dilated. The interatrial septum is in tact with no evidence for an atrial septal defect or patent foramen ovale as noted on 2-D or Doppler imaging. AORTIC VALVE The aortic valve is calcified with restricted LCC. Doppler and Color Flow revealed no significant aor tic regurgitation. There is no significant aortic valvular stenosis. MITRAL VALVE The mitral valve is thickened but opens well. There is no evidence of mitral valve prolapse. There is no mitral valve stenosis. Doppler and Color-flow revealed mild mitral regurgitation. TRICUSPID VALVE The tricuspid valve is normal in structure and function. Doppler and Color Flow revealed mild tricusp id regurgitation with an estimated PAP of 40 mmHg. There is no tricuspid valve stenosis. PULMONIC VALVE The pulmonic valve is not well visualized. Doppler and Color Flow revealed mild pulmonic valvular reg urgitation. There is no pulmonic valvular stenosis. GREAT VESSELS The aortic root is normal in size. The IVC is dilated and collapses >50% with inspiration. PERICARDIAL EFFUSION There is no evidence of significant pericardial effusion. Critical Notification Critical Value: No <Conclusion> The systolic function is moderately impaired. EF 35-40%. There is global hypokinesis of the left ventricle. The right ventricle is mildly to moderately dilated. Doppler and Color Flow revealed mild tricuspid regurgitation with an estimated PAP of 40 mmHg. Doppler and Color Flow revealed mild pulmonic valvular regurgitation. Signed by : Art Romano, Electronically Approved : 07/29/2018 11:09:58
[2018-07-29 11:15] VITALS: BP 113/41
--- NOTE | 2018-07-29 11:50 | NUR ---
wound care patient seen per wound care consult. see wound assessment. patient familiar to the wound care team, as patient is seen in the outpatient wound clinic. patient seen with Dr. Sung at this time. patient has a DFU to the right great toe, the wound was cleaned, measured, pictured and redressed with a non adhesive foam and tape with a soft cast. patient also has a wound to the left plantar foot the wound was cleaned, measured and pictured and redressed with a non adhesive foam and tape. patient to f/u in the wound clinic if as planned for patient to leave tomorrow. if patient does not discharge wound care will f/u for dressing changes Saturday08/04/18.
--- NOTE | 2018-07-29 11:52 | PDOC ---
CARDIO Progress Notes Date and Time Date of Service 07/29/2018 Time of Evaluation 1110 Subjective Subjective: No Chest Pain, No shortness of breath, No Palpitations Vitals Vitals Vital Signs Date Time Temp Pulse Resp B/P (MAP) Pulse Ox O2 Delivery O2 Flow Rate FiO2 07/29/18 11:15 97.4 64 16 113/41 (65) 97 Nasal Cannula 3.0 97.4 Weight Weight [ ] Input and Output Intake and Output Intake and Output 07/29/18 07:00 # Voids 3 Laboratory Labs Laboratory Tests Test 07/28/18 16:14 07/28/18 20:40 07/29/18 08:22 07/29/18 10:33 Glucose (Fingerstick) 103 mg/dL (70-99) 195 mg/dL (70-99) 135 mg/dL (70-99) 143 mg/dL (70-99) Physical Exam Chest: Symmetric LUNGS: Other (diminished bases) Heart: no gallops, irregularly irregular (AFIB) Abdomen: Soft N/T Extremities: Other (trace to 1+ bilateral LE edema) Neurology: alert, oriented, follow commands Assessment Assessment 1. Acute on chronic systolic CHF: now LVEF 35-40%. Compensated post HD 2. Hypertension; better controlled after HD 3. Hyperlipidemia; lipids on goal 4. Mild troponin elevation; peak 0.076. possibly type 2, demand ischemia in the setting of a/c HF and renal disease 5. Diabetes, II; as per PCP 6. Chronic RLE wound; followed by wound care clinic. No significant LE PAD per sono 7. ESRD on HD; MWF 8. Anemia of chronic disease 9. Chronic AFIB; rate controlled. on Eliquis for stroke prevention 10. H/o CVA Recommendations 1. Continue Entresto, Lasix 2. Resume lower dose coreg given his episodes of bradycardia in the 40s. If remains labile then addition of norvasc would be considered 3. Unclear of any ischemic workup what and when. Will obtain [facility] old records today and may consider for sichemic workup tomorrow. 4. Fluid offloading via HD as per nephrology 5. Continue with secondary prevention measures. JODI OLIVEIRA APRN Jul 29, 2018 11:52
--- NOTE | 2018-07-29 11:54 | PDOC2 ---
CONSULT Date of Consult Date of Consult DATE: 07/29/18 TIME: 11:44 Reason for Consult Reason for Consult: Right forefoot diabetic ulcer Referring Physician Referring Physician: Hospitalist per protocol Identification/Chief Complaint Chief Complaint This is a 72-year-old patient well-known to the wound care center for right forefoot diabetic ulcer of long-standing duration. Offloading is been problematic for this patient who experiences multiple orthopedic complaints when offloading devices are utilized. The ulceration has been stable for some time. Patient reports no evidence of increased redness, local swelling, drainage or odor. Most recently has been offloaded and a soft cast as this is best tolerated. He reports relatively good blood glucose control. Most recently he has seen the development of CHF and volume overload requiring current admission. Problems: (1) Type 2 diabetes mellitus with foot ulcer (2) Non-pressure chronic ulcer of other part of right foot with fat layer exposed Source Source: Chart review, Patient History of Present Illness Reason for Visit: Patient's recent admission is well described. He has required volume relief and done well most recently. At this time he will be examined in a chair at the bedside demonstrating no significant distress. Specific to the right forefoot ulcer, no significant changes have occurred recently. Offloading is problematic as noted above and the wound care center has been utilizing a soft cast. Past Medical History Cardiovascular: AFIB, CHF, HTN, Hyperlipidemia Pulmonary: Pneumonia CENTRAL NERVOUS SYSTEM: CVA GI: No pertinent hx Heme/Onc: Anemia NOS Psych: No pertinent hx Musculoskeletal: Osteoarthritis Rheumatologic: No pertinent hx, Gout Infectious disease: No pertinent hx ENT: No pertinent hx Renal/: Chronic renal failure (ESRD on HD), Renal Ca. Endocrine: Diabetes Dermatology: No pertinent hx Past Surgical History Past Surgical History: Other (left nephrectomy ) Family History Family History: Diabetes, Heart Disease, Hypertension Social History No ALCOHOL: none Drugs: None Lives: with Family Current Medications Current Medications Current Medications Acetaminophen (Tylenol) 500 mg PRN Q6HRS PRN PO MILD PAIN / TEMP; Start at 19:45 Ondansetron HCl (Zofran) 4 mg PRN Q6HRS PRN IV NAUSEA/VOMITING; Start 07/27/18 at 19:45 Acetaminophen/ Hydrocodone Bitart (Lortab 5/325) 1 tab PRN Q6HRS PRN PO MODERATE TO SEVER PAIN; Start 07/27/18 at 19:45 Albuterol Sulfate (Ventolin Neb Soln) 2.5 mg PRN Q6HRS PRN NEB SHORTNESS OF BREATH; Start 07/27/18 at 19:45 Temazepam (Restoril) 7.5 mg PRN QHS PRN PO INSOMNIA; Start 07/27/18 at 19:45 Allopurinol (Zyloprim) 100 mg DAILY PO Last administered on 07/29/18 08:17; Start 07/28/18 at 09:00 Apixaban (Eliquis) 5 mg BID PO Last administered on 07/29/18 10:23; Start at 21:00 Carvedilol (Coreg) 6.25 mg BIDWMEALS PO Last administered on 07/28/18 08:33; Start 07/28/18 at 08:00; Stop 07/28/18 at 14:46; Status DC Cinacalcet (Sensipar) 60 mg DAILY PO Last administered on 07/29/18 08:18; Start 07/28/18 at 09:00 Ferrous Sulfate (Feosol) 325 mg TID PO Last administered on 07/29/18 08:17; Start 07/27/18 at 21:00 Vitamin B Complex/ Vitamin C (Mindy-Maureen) 1 tab DAILY PO Last administered on 10:32; Start 07/28/18 at 09:00 Furosemide (Lasix) 80 mg BID94 PO Last administered on 07/29/18 08:17; Start 07/28/18 at 09:00 Sevelamer Carbonate (Renvela) 2,400 mg TID PO Last administered on 07/29/18 08 :19; Start 07/27/18 at 21:00 Non-Formulary Medication (Insulin Aspart (Novolog Flexpen)) TIDWMEALS SQ ; Start 07/28/18 at 08:00; Stop 07/28/18 at 10:12; Status DC Insulin Glargine (Lantus) 20 units QHS SQ Last administered on 07/28/18at 20:44 ; Start 07/27/18 at 21:00 Atorvastatin Calcium (Lipitor) 5 mg DAILY PO Last administered on 07/29/18 08: 18; Start 07/28/18 at 09:00 Sacubitril/ Valsartan (Entresto 49 Mg-51 Mg) 1 tab BID PO Last administered on 07/29/18at 08:18; Start 07/27/18 at 21:00 Insulin Human Lispro (HumaLOG) 3 units TIDWMEALS SQ Last administered on at 08:12; Start 07/28/18 at 12:00 Insulin Human Lispro (HumaLOG) 0-5 UNITS TIDWMEALS SQ Last administered on 07/29at 08:13; Start 07/28/18 at 12:00 Dextrose (Dextrose 50%-Water Syringe) 12.5 gm PRN Q15MIN PRN IV SEE COMMENTS; Start 07/28/18 at 10:15 Sodium Chloride 1,000 ml @ 1,000 mls/hr Q1H PRN IV hypotension; Start 07/28/18 at 10:24; Stop 07/28/18 at 16:23; Status DC Diphenhydramine HCl (Benadryl) 25 mg 1X PRN PRN IV ITCHING; Start 07/28/18 at 10:30; Stop 07/29/18 at 10:29; Status DC Diphenhydramine HCl (Benadryl) 25 mg 1X PRN PRN IV ITCHING; Start 07/28/18 at 10:30; Stop 07/29/18 at 10:29; Status DC Sodium Chloride 1,000 ml @ 400 mls/hr Q2H30M PRN IV PATENCY; Start 07/28/18 at 10:24; Stop 07/28/18 at 22:23; Status DC Info (PHARMACY MONITORING -- do not chart) 1 each PRN DAILY PRN MC SEE COMMENTS ; Start 07/28/18 at 10:30 Info (Anti-Coagulation Monitoring By Pharmacy) 1 each PRN DAILY PRN MC SEE COMMENTS Last administered on 07/28/18at 11:59; Start 07/28/18 at 12:00 Carvedilol (Coreg) 12.5 mg BIDWMEALS PO Last administered on 07/29/18at 08:17; Start 07/28/18 at 17:00 Carvedilol (Coreg) 6.25 mg 1X ONCE PO Last administered on 07/28/18at 16:27; Start 07/28/18 at 14:45; Stop 3/18/19 at 14:47; Status DC Active Scripts Active Mindy-Maureen Tablet (Folic Acid/Vitamin B Comp W-C) 0.8 Mg Tablet 1 Tab PO DAILY 30 Days Allopurinol 100 Mg Tablet 100 Mg PO DAILY Novolog Flexpen (Insulin Aspart) 100 Unit/1 Ml Insuln.pen 0 Units SQ TIDWMEALS 30 Days Levemir Flextouch (Insulin Detemir) 100 Unit/1 Ml Insuln.pen 20 Units SQ QHS 30 Days Reported Renvela (Sevelamer Carbonate) 800 Mg Tablet 3 Tab PO TID Entresto 49 mg-51 mg Tablet (Sacubitril/Valsartan) 1 Each Tablet 1 Each PO BID Lasix (Furosemide) 40 Mg Tablet 80 Mg PO BID Sensipar (Cinacalcet Hcl) 30 Mg Tablet 60 Mg PO DAILY Eliquis (Apixaban) 5 Mg Tablet 5 Mg PO BID Ferrous Sulfate 325 Mg Tablet 1 Tab PO TID Coreg (Carvedilol) 6.25 Mg Tablet 1 Tab PO BID does not take morning of dialysis Pravastatin Sodium 20 Mg Tablet 20 Mg PO DAILY Allergies Allergies: Coded Allergies: nut - unspecified (Verified Allergy, Intermediate, 01/13/18) lisinopril (Verified Adverse Reaction, Intermediate, Cough, 12/27/16) ROS Review of System Negative except as reported below General: YES: Fatigue HEENT: YES: Other (patient has decreased hearing) Respiratory: YES: SOB with excertion Cardiovascular: yes Edema (currently significantly improved at this time) Musculoskeletal: Yes Joint Pain (arthritic changes reported) Neurological: Yes Other (diabetic neuropathy 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 Negative Homans.) Skin: Other (3 mm right forefoot diabetic Minaya 1 ulceration with evidence of fat layer exposure without accompanying periwound erythema, unusual drainage or odor) Neuro: Normal speech, Cranial nerves 3-12 NL Psych/Mental Status: Mental status NL, Mood NL MUSCULOSKELETAL: Not examined Vitals VITALS Vital Signs Date Time Temp Pulse Resp B/P (MAP) Pulse Ox O2 Delivery O2 Flow Rate FiO2 07/29/18 11:15 97.4 64 16 113/41 (65) 97 Nasal Cannula 3.0 97.4 Labs Labs Laboratory Tests Test 07/27/18 21:28 07/27/18 22:30 07/28/18 05:00 07/28/18 08:15 Glucose (Fingerstick) 163 mg/dL (70-99) 169 mg/dL (70-99) Troponin I Quantitative 0.076 ng/mL (0.000-0.055) 0.074 ng/mL (0.000-0.055) White Blood Count 13.9 x10^3/uL (4.0-11.0) Red Blood Count 2.58 x10^6/uL (4.30-5.70) Hemoglobin 8.7 g/dL (13.0-17.5) Hematocrit 26.0 % (39.0-53.0) Mean Corpuscular Volume 101 fL (79-100) Mean Corpuscular Hemoglobin 34 pg (25-35) Mean Corpuscular Hemoglobin Concent 33 g/dL (31-37) Red Cell Distribution Width 13.5 % (11.5-14.5) Platelet Count 193 x10^3/uL (140-400) Neutrophils (%) (Auto) 84 % (31-73) Lymphocytes (%) (Auto) 7 % (24-48) Monocytes (%) (Auto) 6 % (0-9) Eosinophils (%) (Auto) 2 % (0-3) Basophils (%) (Auto) 1 % (0-3) Neutrophils # (Auto) 11.7 x10^3uL (1.8-7.7) Lymphocytes # (Auto) 1.0 x10^3/uL (1.0-4.8) Monocytes # (Auto) 0.9 x10^3/uL (0.0-1.1) Eosinophils # (Auto) 0.2 x10^3/uL (0.0-0.7) Basophils # (Auto) 0.1 x10^3/uL (0.0-0.2) Sodium Level 140 mmol/L (136-145) Potassium Level 3.7 mmol/L (3.5-5.1) Chloride Level 99 mmol/L (98-107) Carbon Dioxide Level 32 mmol/L (21-32) Anion Gap 9 (6-14) Blood Urea Nitrogen 63 mg/dL (8-26) Creatinine 7.6 mg/dL (0.7-1.3) Estimated GFR (Cockcroft-Gault) 7.1 Glucose Level 162 mg/dL (70-99) Calcium Level 9.7 mg/dL (8.5-10.1) Triglycerides Level 84 mg/dL (0-150) Cholesterol Level 120 mg/dL (0-200) LDL Cholesterol, Calculated 76 mg/dL (0-100) VLDL Cholesterol, Calculated 17 mg/dL (0-40) Non-HDL Cholesterol Calculated 93 mg/dL (0-129) HDL Cholesterol 27 mg/dL (40-60) Cholesterol/HDL Ratio 4.4 Test 07/28/18 16:14 07/28/18 20:40 07/29/18 08:22 07/29/18 10:33 Glucose (Fingerstick) 103 mg/dL (70-99) 195 mg/dL (70-99) 135 mg/dL (70-99) 143 mg/dL (70-99) Laboratory Tests Test 07/28/18 16:14 07/28/18 20:40 07/29/18 08:22 07/29/18 10:33 Glucose (Fingerstick) 103 mg/dL (70-99) 195 mg/dL (70-99) 135 mg/dL (70-99) 143 mg/dL (70-99) Images Images Arterial Doppler reviewed. 3 vessel runoff below the knee noted Assessment/Plan Assessment/Plan Diabetic Minaya 1 ulceration of the right forefoot with evidence of fat layer exposure The ulcer itself looks excellent with granulation noted in the bed Appropriate dressings utilized. Patient will be returned to soft cast. We'll follow-up in clinic in 1 week time period Thank you for allowing us to participate in this patient's care. SULMA KEYS DO Jul 29, 2018 11:54
[2018-07-29 14:39] VITALS: BP 121/65
[2018-07-29] MEDS: CARVEDILOL 6.25 MG TABLET. PO SCH (17:17)
[2018-07-29 19:00] VITALS: BP 133/57
[2018-07-29] MEDS: INSULIN GLARGINE 300 UNITS/3 ML INSULN.PEN. SQ SCH (21:15)
[2018-07-29 23:00] VITALS: BP 125/56
[2018-07-30 03:00] VITALS: BP 138/69
[2018-07-30 07:00] VITALS: BP 126/75
[2018-07-30 07:58] LABS: BASO # 0.1 x10^3/uL (0.0-0.2); BASO % 1 % (0-3); EOS # 0.3 x10^3/uL (0.0-0.7); EOS % 3 % (0-3); HEMATOCRIT 27.3 % (39.0-53.0); HEMOGLOBIN 9.1 g/dL (13.0-17.5); LYMPH # 1.4 x10^3/uL (1.0-4.8); LYMPH % 12 % (24-48); MEAN CORPUSCULAR HEMOGLOBIN 34 pg (25-35); MEAN CORPUSCULAR HGB CONC 34 g/dL (31-37); MEAN CORPUSCULAR VOLUME 101 fL (79-100); MONO # 0.8 x10^3/uL (0.0-1.1); MONO % 7 % (0-9); NEUT # 8.7 x10^3uL (1.8-7.7); NEUT % 77 % (31-73); PLATELET COUNT 212 x10^3/uL (140-400); RED BLOOD COUNT 2.71 x10^6/uL (4.30-5.70); RED CELL DISTRIBUTION WIDTH 13.7 % (11.5-14.5); WHITE BLOOD COUNT 11.3 x10^3/uL (4.0-11.0)
[2018-07-30] MEDS: INSULIN LISPRO 300 UNITS/3 ML INSULN.PEN. SQ SCH ×6 (08:00→18:08)
[2018-07-30] MEDS: CARVEDILOL 6.25 MG TABLET. PO SCH ×2 (08:00→17:59)
[2018-07-30] MEDS ORDERED: IV NORMAL SALINE 1000ML BAG 1,000 ML IV PRN ×2 (08:06)
[2018-07-30] MEDS: SEVELAMER CARBONATE 800 MG TABLET. PO SCH ×3 (08:15→21:52)
[2018-07-30] MEDS ORDERED: DIALYSIS PATIENT. MC PRN ×2 (08:15)
[2018-07-30 08:22] LABS: ALBUMIN 2.8 g/dL (3.4-5.0); CALCIUM 8.9 mg/dL (8.5-10.1); CREATININE 7.5 mg/dL (0.7-1.3); GFR 7.2; PHOSPHORUS 4.8 mg/dL (2.6-4.7); POTASSIUM 3.8 mmol/L (3.5-5.1)
[2018-07-30] MEDS: FERROUS SULFATE 325 MG TABLET. PO SCH ×3 (09:00→21:52)
[2018-07-30] MEDS: FUROSEMIDE 80 MG TABLET. PO SCH ×2 (09:00→17:58)
--- NOTE | 2018-07-30 09:10 | PDOC ---
CARDIO Progress Notes Date and Time Date of Service 07/30/2018 Time of Evaluation 0900 Subjective Subjective: No Chest Pain, No shortness of breath, No Palpitations Vitals Vitals Vital Signs Date Time Temp Pulse Resp B/P (MAP) Pulse Ox O2 Delivery O2 Flow Rate FiO2 07/30/18 07:00 97.3 75 18 126/75 (92) 100 Nasal Cannula 2.0 97.3 Weight Weight [ ] Input and Output Intake and Output Intake and Output 07/30/18 07:00 Intake Total 250 ml Balance 250 ml Intake Oral 250 ml # Voids 1 Laboratory Labs Laboratory Tests Test 07/29/18 10:33 07/29/18 16:49 07/29/18 20:11 07/30/18 06:42 Glucose (Fingerstick) 143 mg/dL (70-99) 119 mg/dL (70-99) 152 mg/dL (70-99) White Blood Count 11.3 x10^3/uL (4.0-11.0) Red Blood Count 2.71 x10^6/uL (4.30-5.70) Hemoglobin 9.1 g/dL (13.0-17.5) Hematocrit 27.3 % (39.0-53.0) Mean Corpuscular Volume 101 fL (79-100) Mean Corpuscular Hemoglobin 34 pg (25-35) Mean Corpuscular Hemoglobin Concent 34 g/dL (31-37) Red Cell Distribution Width 13.7 % (11.5-14.5) Platelet Count 212 x10^3/uL (140-400) Neutrophils (%) (Auto) 77 % (31-73) Lymphocytes (%) (Auto) 12 % (24-48) Monocytes (%) (Auto) 7 % (0-9) Eosinophils (%) (Auto) 3 % (0-3) Basophils (%) (Auto) 1 % (0-3) Neutrophils # (Auto) 8.7 x10^3uL (1.8-7.7) Lymphocytes # (Auto) 1.4 x10^3/uL (1.0-4.8) Monocytes # (Auto) 0.8 x10^3/uL (0.0-1.1) Eosinophils # (Auto) 0.3 x10^3/uL (0.0-0.7) Basophils # (Auto) 0.1 x10^3/uL (0.0-0.2) Sodium Level 142 mmol/L (136-145) Potassium Level 3.8 mmol/L (3.5-5.1) Chloride Level 100 mmol/L (98-107) Carbon Dioxide Level 29 mmol/L (21-32) Anion Gap 13 (6-14) Blood Urea Nitrogen 66 mg/dL (8-26) Creatinine 7.5 mg/dL (0.7-1.3) Estimated GFR (Cockcroft-Gault) 7.2 Glucose Level 120 mg/dL (70-99) Calcium Level 8.9 mg/dL (8.5-10.1) Phosphorus Level 4.8 mg/dL (2.6-4.7) Albumin 2.8 g/dL (3.4-5.0) Test 07/30/18 07:43 Glucose (Fingerstick) 100 mg/dL (70-99) Physical Exam HEENT: Neck Supple W Full Motion Chest: Symmetric LUNGS: Other (diminished bases) Heart: no gallops, irregularly irregular (AFIB) Abdomen: Soft N/T Extremities: Other (trace to 1+ bilateral LE edema) Neurology: alert, oriented, follow commands Assessment Assessment 1. Acute on chronic systolic CHF: now LVEF 35-40%. Compensated post HD 2. Hypertension; better controlled after HD 3. Hyperlipidemia; lipids on goal 4. Mild troponin elevation; peak 0.076. possibly type 2, demand ischemia in the setting of a/c HF and renal disease 5. Diabetes, II; as per PCP 6. Chronic RLE wound; followed by wound care clinic. No significant LE PAD per sono 7. ESRD on HD; MWF 8. Anemia of chronic disease 9. Chronic AFIB; rate controlled. on Eliquis for stroke prevention 10. H/o CVA 11. CAD; noted 50% OM lesion on [facility] 03/2017. No CP. Recommendations 1. Continue Entresto, Lasix, and home coreg 2. Will need for outpt stress test via [facility]. Will discuss with primary director of medical review. 3. Fluid offloading via HD as per nephrology 4. Continue with secondary prevention measures. JODI OLIVEIRA APRN Jul 30, 2018 09:10
--- NOTE | 2018-07-30 11:09 | PDOC ---
PROGRESS NOTES Chief Complaint Chief Complaint Acute CHF exacerbation Shortness of breath Hypoxia Htn DM2 controlled ESRD on HD mwf pafib on eliquis, carvedilol h/o left renal Ca s/p nephrectomy rt toe chronic wound s/p i and d History of Present Illness History of Present Illness Mr Jones is a 72 yo male w/ PMHx afib, CHF, ESRD on HD who initially presented to [facility] secondary to shortness of breath and feeling very weak and O2 saturations around Pt was seen and examined during HD today He was resting comfortably in NAD Reports feeling much better now compared to status at admission Discussed with RN Vitals Vitals Vital Signs Date Time Temp Pulse Resp B/P (MAP) Pulse Ox O2 Delivery O2 Flow Rate FiO2 07/30/18 07:00 97.3 75 18 126/75 (92) 100 Nasal Cannula 2.0 97.3 Physical Exam General: Alert, Oriented X3, Cooperative, No acute distress Heart: No murmurs, Other (rate irregular) Lungs: Clear Abdomen: Soft, No tenderness Extremities: No clubbing, No cyanosis, Other (trace edema. Negative Homans.) Skin: No rashes, Other (R foot has bandage applied that goes up to R ankle) Labs LABS Laboratory Tests Test 07/29/18 16:49 07/29/18 20:11 07/30/18 06:42 07/30/18 07:43 Glucose (Fingerstick) 119 mg/dL (70-99) 152 mg/dL (70-99) 100 mg/dL (70-99) White Blood Count 11.3 x10^3/uL (4.0-11.0) Red Blood Count 2.71 x10^6/uL (4.30-5.70) Hemoglobin 9.1 g/dL (13.0-17.5) Hematocrit 27.3 % (39.0-53.0) Mean Corpuscular Volume 101 fL (79-100) Mean Corpuscular Hemoglobin 34 pg (25-35) Mean Corpuscular Hemoglobin Concent 34 g/dL (31-37) Red Cell Distribution Width 13.7 % (11.5-14.5) Platelet Count 212 x10^3/uL (140-400) Neutrophils (%) (Auto) 77 % (31-73) Lymphocytes (%) (Auto) 12 % (24-48) Monocytes (%) (Auto) 7 % (0-9) Eosinophils (%) (Auto) 3 % (0-3) Basophils (%) (Auto) 1 % (0-3) Neutrophils # (Auto) 8.7 x10^3uL (1.8-7.7) Lymphocytes # (Auto) 1.4 x10^3/uL (1.0-4.8) Monocytes # (Auto) 0.8 x10^3/uL (0.0-1.1) Eosinophils # (Auto) 0.3 x10^3/uL (0.0-0.7) Basophils # (Auto) 0.1 x10^3/uL (0.0-0.2) Sodium Level 142 mmol/L (136-145) Potassium Level 3.8 mmol/L (3.5-5.1) Chloride Level 100 mmol/L (98-107) Carbon Dioxide Level 29 mmol/L (21-32) Anion Gap 13 (6-14) Blood Urea Nitrogen 66 mg/dL (8-26) Creatinine 7.5 mg/dL (0.7-1.3) Estimated GFR (Cockcroft-Gault) 7.2 Glucose Level 120 mg/dL (70-99) Calcium Level 8.9 mg/dL (8.5-10.1) Phosphorus Level 4.8 mg/dL (2.6-4.7) Magnesium Level 2.3 mg/dL (1.8-2.4) Albumin 2.8 g/dL (3.4-5.0) Review of Systems Review of Systems Pt denies CP, SOB, PRATT, n/v/d He reports some mild weakness Assessment and Plan Assessmemt and Plan Assessment Acute CHF exacerbation Shortness of breath Hypoxia Htn DM2 controlled ESRD on HD mwf pafib on eliquis, carvedilol h/o left renal Ca s/p nephrectomy rt toe chronic wound s/p i and d Plan Pt appears OK to discharge from our standpoint, will D/C when okay with nephrology Continue HD with UF- tolerating well today Continue wound care, will follow up outpt Home meds SS Insulin Eloquis for Afib PT/OT OK to discharge from our standpoint- will wait for the OK from subspecialties Comment Review of Relevant I have reviewed the following items jennifer (where applicable) has been applied. Labs Laboratory Tests Test 07/28/18 16:14 07/28/18 20:40 07/29/18 08:22 07/29/18 10:33 Glucose (Fingerstick) 103 mg/dL (70-99) 195 mg/dL (70-99) 135 mg/dL (70-99) 143 mg/dL (70-99) Test 07/29/18 16:49 07/29/18 20:11 07/30/18 06:42 07/30/18 07:43 Glucose (Fingerstick) 119 mg/dL (70-99) 152 mg/dL (70-99) 100 mg/dL (70-99) White Blood Count 11.3 x10^3/uL (4.0-11.0) Red Blood Count 2.71 x10^6/uL (4.30-5.70) Hemoglobin 9.1 g/dL (13.0-17.5) Hematocrit 27.3 % (39.0-53.0) Mean Corpuscular Volume 101 fL (79-100) Mean Corpuscular Hemoglobin 34 pg (25-35) Mean Corpuscular Hemoglobin Concent 34 g/dL (31-37) Red Cell Distribution Width 13.7 % (11.5-14.5) Platelet Count 212 x10^3/uL (140-400) Neutrophils (%) (Auto) 77 % (31-73) Lymphocytes (%) (Auto) 12 % (24-48) Monocytes (%) (Auto) 7 % (0-9) Eosinophils (%) (Auto) 3 % (0-3) Basophils (%) (Auto) 1 % (0-3) Neutrophils # (Auto) 8.7 x10^3uL (1.8-7.7) Lymphocytes # (Auto) 1.4 x10^3/uL (1.0-4.8) Monocytes # (Auto) 0.8 x10^3/uL (0.0-1.1) Eosinophils # (Auto) 0.3 x10^3/uL (0.0-0.7) Basophils # (Auto) 0.1 x10^3/uL (0.0-0.2) Sodium Level 142 mmol/L (136-145) Potassium Level 3.8 mmol/L (3.5-5.1) Chloride Level 100 mmol/L (98-107) Carbon Dioxide Level 29 mmol/L (21-32) Anion Gap 13 (6-14) Blood Urea Nitrogen 66 mg/dL (8-26) Creatinine 7.5 mg/dL (0.7-1.3) Estimated GFR (Cockcroft-Gault) 7.2 Glucose Level 120 mg/dL (70-99) Calcium Level 8.9 mg/dL (8.5-10.1) Phosphorus Level 4.8 mg/dL (2.6-4.7) Magnesium Level 2.3 mg/dL (1.8-2.4) Albumin 2.8 g/dL (3.4-5.0) Laboratory Tests Test 07/29/18 16:49 07/29/18 20:11 07/30/18 06:42 07/30/18 07:43 Glucose (Fingerstick) 119 mg/dL (70-99) 152 mg/dL (70-99) 100 mg/dL (70-99) White Blood Count 11.3 x10^3/uL (4.0-11.0) Red Blood Count 2.71 x10^6/uL (4.30-5.70) Hemoglobin 9.1 g/dL (13.0-17.5) Hematocrit 27.3 % (39.0-53.0) Mean Corpuscular Volume 101 fL (79-100) Mean Corpuscular Hemoglobin 34 pg (25-35) Mean Corpuscular Hemoglobin Concent 34 g/dL (31-37) Red Cell Distribution Width 13.7 % (11.5-14.5) Platelet Count 212 x10^3/uL (140-400) Neutrophils (%) (Auto) 77 % (31-73) Lymphocytes (%) (Auto) 12 % (24-48) Monocytes (%) (Auto) 7 % (0-9) Eosinophils (%) (Auto) 3 % (0-3) Basophils (%) (Auto) 1 % (0-3) Neutrophils # (Auto) 8.7 x10^3uL (1.8-7.7) Lymphocytes # (Auto) 1.4 x10^3/uL (1.0-4.8) Monocytes # (Auto) 0.8 x10^3/uL (0.0-1.1) Eosinophils # (Auto) 0.3 x10^3/uL (0.0-0.7) Basophils # (Auto) 0.1 x10^3/uL (0.0-0.2) Sodium Level 142 mmol/L (136-145) Potassium Level 3.8 mmol/L (3.5-5.1) Chloride Level 100 mmol/L (98-107) Carbon Dioxide Level 29 mmol/L (21-32) Anion Gap 13 (6-14) Blood Urea Nitrogen 66 mg/dL (8-26) Creatinine 7.5 mg/dL (0.7-1.3) Estimated GFR (Cockcroft-Gault) 7.2 Glucose Level 120 mg/dL (70-99) Calcium Level 8.9 mg/dL (8.5-10.1) Phosphorus Level 4.8 mg/dL (2.6-4.7) Magnesium Level 2.3 mg/dL (1.8-2.4) Albumin 2.8 g/dL (3.4-5.0) Medications Current Medications Acetaminophen (Tylenol) 500 mg PRN Q6HRS PRN PO MILD PAIN / TEMP; Start at 19:45 Ondansetron HCl (Zofran) 4 mg PRN Q6HRS PRN IV NAUSEA/VOMITING; Start 07/27/18 at 19:45 Acetaminophen/ Hydrocodone Bitart (Lortab 5/325) 1 tab PRN Q6HRS PRN PO MODERATE TO SEVER PAIN; Start 07/27/18 at 19:45 Albuterol Sulfate (Ventolin Neb Soln) 2.5 mg PRN Q6HRS PRN NEB SHORTNESS OF BREATH; Start 07/27/18 at 19:45 Temazepam (Restoril) 7.5 mg PRN QHS PRN PO INSOMNIA; Start 07/27/18 at 19:45 Allopurinol (Zyloprim) 100 mg DAILY PO Last administered on 07/29/18at 08:17; Start 07/28/18 at 09:00 Apixaban (Eliquis) 5 mg BID PO Last administered on 07/29/18at 21:08; Start at 21:00 Carvedilol (Coreg) 6.25 mg BIDWMEALS PO Last administered on 07/28/18 08:33; Start 07/28/18 at 08:00; Stop 07/28/18 at 14:46; Status DC Cinacalcet (Sensipar) 60 mg DAILY PO Last administered on 07/29/18 08:18; Start 07/28/18 at 09:00 Ferrous Sulfate (Feosol) 325 mg TID PO Last administered on 07/29/18 21:08; Start 07/27/18 at 21:00 Vitamin B Complex/ Vitamin C (Mindy-Maureen) 1 tab DAILY PO Last administered on 10:32; Start 07/28/18 at 09:00 Furosemide (Lasix) 80 mg [id number] PO Last administered on 07/29/18 15:14; Start 07/28/18 at 09:00 Sevelamer Carbonate (Renvela) 2,400 mg TID PO Last administered on 07/30/18 08 :15; Start 07/27/18 at 21:00 Non-Formulary Medication (Insulin Aspart (Novolog Flexpen)) TIDWMEALS SQ ; Start 07/28/18 at 08:00; Stop 07/28/18 at 10:12; Status DC Insulin Glargine (Lantus) 20 units QHS SQ Last administered on 07/29/18 21:15 ; Start 07/27/18 at 21:00 Atorvastatin Calcium (Lipitor) 5 mg DAILY PO Last administered on 07/29/18 08: 18; Start 07/28/18 at 09:00 Sacubitril/ Valsartan (Entresto 49 Mg-51 Mg) 1 tab BID PO Last administered on 07/29/18 21:08; Start 07/27/18 at 21:00 Insulin Human Lispro (HumaLOG) 3 units TIDWMEALS SQ Last administered on 17:21; Start 07/28/18 at 12:00 Insulin Human Lispro (HumaLOG) 0-5 UNITS TIDWMEALS SQ Last administered on 07/29 08:13; Start 07/28/18 at 12:00 Dextrose (Dextrose 50%-Water Syringe) 12.5 gm PRN Q15MIN PRN IV SEE COMMENTS; Start 07/28/18 at 10:15 Sodium Chloride 1,000 ml @ 1,000 mls/hr Q1H PRN IV hypotension; Start 07/28/18 at 10:24; Stop 07/28/18 at 16:23; Status DC Diphenhydramine HCl (Benadryl) 25 mg 1X PRN PRN IV ITCHING; Start 07/28/18 at 10:30; Stop 07/29/18 at 10:29; Status DC Diphenhydramine HCl (Benadryl) 25 mg 1X PRN PRN IV ITCHING; Start 07/28/18 at 10:30; Stop 07/29/18 at 10:29; Status DC Sodium Chloride 1,000 ml @ 400 mls/hr Q2H30M PRN IV PATENCY; Start 07/28/18 at 10:24; Stop 07/28/18 at 22:23; Status DC Info (PHARMACY MONITORING -- do not chart) 1 each PRN DAILY PRN MC SEE COMMENTS ; Start 07/28/18 at 10:30; Status Cancel Info (Anti-Coagulation Monitoring By Pharmacy) 1 each PRN DAILY PRN MC SEE COMMENTS Last administered on 07/28/18at 11:59; Start 07/28/18 at 12:00 Carvedilol (Coreg) 12.5 mg BIDWMEALS PO Last administered on 07/29/18at 08:17; Start 07/28/18 at 17:00; Stop 07/29/18 at 11:49; Status DC Carvedilol (Coreg) 6.25 mg 1X ONCE PO Last administered on 07/28/18at 16:27; Start 07/28/18 at 14:45; Stop 07/28/18 at 14:47; Status DC Carvedilol (Coreg) 6.25 mg BIDWMEALS PO Last administered on 07/29/18at 17:17; Start 07/29/18 at 17:00 Sodium Chloride 1,000 ml @ 1,000 mls/hr Q1H PRN IV hypotension; Start 07/30/18 at 08:06; Stop 07/30/18 at 14:05 Sodium Chloride 1,000 ml @ 400 mls/hr Q2H30M PRN IV PATENCY; Start 07/30/18 at 08:06; Stop 07/30/18 at 20:05 Info (PHARMACY MONITORING -- do not chart) 1 each PRN DAILY PRN MC SEE COMMENTS ; Start 07/30/18 at 08:15; Status UNV Info (PHARMACY MONITORING -- do not chart) 1 each PRN DAILY PRN MC SEE COMMENTS ; Start 07/30/18 at 08:15 Active Scripts Active Mindy-Maureen Tablet (Folic Acid/Vitamin B Comp W-C) 0.8 Mg Tablet 1 Tab PO DAILY 30 Days Allopurinol 100 Mg Tablet 100 Mg PO DAILY Novolog Flexpen (Insulin Aspart) 100 Unit/1 Ml Insuln.pen 0 Units SQ TIDWMEALS 30 Days Levemir Flextouch (Insulin Detemir) 100 Unit/1 Ml Insuln.pen 20 Units SQ QHS 30 Days Reported Renvela (Sevelamer Carbonate) 800 Mg Tablet 3 Tab PO TID Entresto 49 mg-51 mg Tablet (Sacubitril/Valsartan) 1 Each Tablet 1 Each PO BID Lasix (Furosemide) 40 Mg Tablet 80 Mg PO BID Sensipar (Cinacalcet Hcl) 30 Mg Tablet 60 Mg PO DAILY Eliquis (Apixaban) 5 Mg Tablet 5 Mg PO BID Ferrous Sulfate 325 Mg Tablet 1 Tab PO TID Coreg (Carvedilol) 6.25 Mg Tablet 1 Tab PO BID does not take morning of dialysis Pravastatin Sodium 20 Mg Tablet 20 Mg PO DAILY Vitals/I & O Vital Sign - Last 24 Hours 07/29/18 07/29/18 07/29/18 07/29/18 11:15 14:39 17:17 19:00 Temp 97.4 97.5 97.9 97.4 97.5 97.9 Pulse 64 94 94 46 Resp 16 16 16 B/P (MAP) 113/41 (65) 121/65 (83) 121/65 133/57 (82) Pulse Ox 97 94 90 O2 Delivery Nasal Cannula Nasal Cannula Nasal Cannula O2 Flow Rate 3.0 3.0 3.0 07/29/18 07/29/18 07/29/18 07/30/18 20:00 21:08 23:00 03:00 Temp 98.7 97.9 98.7 97.9 Pulse 46 61 65 Resp 16 16 B/P (MAP) 133/57 125/56 (79) 138/69 (92) Pulse Ox 98 98 O2 Delivery Nasal Cannula Nasal Cannula Nasal Cannula O2 Flow Rate 3.0 3.0 3.0 07/30/18 07:00 Temp 97.3 97.3 Pulse 75 Resp 18 B/P (MAP) 126/75 (92) Pulse Ox 100 O2 Delivery Nasal Cannula O2 Flow Rate 2.0 Intake and Output 07/29/18 07/29/18 07/30/18 15:00 23:00 07:00 Intake Total 250 ml 0 ml Balance 250 ml 0 ml MARCUS ROD III DO Jul 30, 2018 11:09
--- NOTE | 2018-07-30 11:14 | PDOC ---
SUBJECTIVE ROS States feeling much better OBJECTIVE Vital Signs Vital Signs Date Time Temp Pulse Resp B/P (MAP) Pulse Ox O2 Delivery O2 Flow Rate FiO2 07/30/18 07:00 97.3 75 18 126/75 (92) 100 Nasal Cannula 2.0 97.3 I & 0 Intake and Output 07/30/18 06:59 Intake Total 250 ml Balance 250 ml Intake Oral 250 ml # Voids 1 PHYSICAL EXAM Physical Exam GEN: NAD, HEEN: OM Moist NECK: Supple CVS: RRR RESP: CT, No Acc. Muscle Use GI: Non Tender,soft : No CVA tenderness, No Suprapubic Tenderness, No [place] NEURO- AxO x 3 Skin - No Rash DIAGNOSIS/ASSESSMENT Assessment & Plan ESRD - [facility]- [facility]- Dr. 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 Hyperpara- Continue Cinacalcet Anemia- managed in OP unit as per Protocol Aranesp while inpatient DM- On insulin Discharge as per primary COMMENT/RELEVANT DATA Meds Current Medications Medications (Trade) Dose Ordered Sig/[place] Start Time Stop Time Status Last Admin Dose Admin Acetaminophen (Tylenol) 500 mg PRN Q6HRS PRN 07/27/18 19:45 Acetaminophen/ Hydrocodone Bitart (Lortab 5/325) 1 tab PRN Q6HRS PRN 07/27/18 19:45 Albuterol Sulfate (Ventolin Neb Soln) 2.5 mg PRN Q6HRS PRN 07/27/18 19:45 Allopurinol (Zyloprim) 100 mg DAILY 07/28/18 09:00 07/29/18 08:17 100 MG Apixaban (Eliquis) 5 mg BID 07/27/18 21:00 07/29/18 21:08 5 MG Atorvastatin Calcium (Lipitor) 5 mg DAILY 07/28/18 09:00 07/29/18 08:18 5 MG Carvedilol (Coreg) 6.25 mg BIDWMEALS 07/29/18 17:00 07/29/18 17:17 6.25 MG Cinacalcet (Sensipar) 60 mg DAILY 07/28/18 09:00 07/29/18 08:18 60 MG Dextrose (Dextrose 50%-Water Syringe) 12.5 gm PRN Q15MIN PRN 07/28/18 10:15 Diphenhydramine HCl (Benadryl) 25 mg 1X PRN PRN 07/28/18 10:30 07/29/18 10:29 DC Ferrous Sulfate (Feosol) 325 mg TID 07/27/18 21:00 07/29/18 21:08 325 MG Furosemide (Lasix) 80 mg [id number] 07/28/18 09:00 07/29/18 15:14 80 MG Info (Anti-Coagulation Monitoring By Pharmacy) 1 each PRN DAILY PRN 07/28/18 12:00 07/28/18 11:59 1 EACH Info (PHARMACY MONITORING -- do not chart) 1 each PRN DAILY PRN 07/30/18 08:15 Insulin Glargine (Lantus) 20 units QHS 07/27/18 21:00 07/29/18 21:15 20 UNITS Insulin Human Lispro (HumaLOG) 0-5 UNITS TIDWMEALS 07/28/18 12:00 07/29/18 08:13 2 UNITS Non-Formulary Medication (Insulin Aspart (Novolog Flexpen)) TIDWMEALS 07/28/18 08:00 07/28/18 10:12 DC Ondansetron HCl (Zofran) 4 mg PRN Q6HRS PRN 07/27/18 19:45 Sacubitril/ Valsartan (Entresto 49 Mg-51 Mg) 1 tab BID 07/27/18 21:00 07/29/18 21:08 1 TAB Sevelamer Carbonate (Renvela) 2,400 mg TID 07/27/18 21:00 07/30/18 08:15 2,400 MG Sodium Chloride 1,000 ml @ 400 mls/hr Q2H30M PRN 07/30/18 08:06 07/30/18 20:05 Temazepam (Restoril) 7.5 mg PRN QHS PRN 07/27/18 19:45 Vitamin B Complex/ Vitamin C (Mindy-Maureen) 1 tab DAILY 07/28/18 09:00 07/29/18 10:32 1 TAB Lab Laboratory Tests Test 07/29/18 16:49 07/29/18 20:11 07/30/18 06:42 07/30/18 07:43 Glucose (Fingerstick) 119 mg/dL (70-99) 152 mg/dL (70-99) 100 mg/dL (70-99) White Blood Count 11.3 x10^3/uL (4.0-11.0) Red Blood Count 2.71 x10^6/uL (4.30-5.70) Hemoglobin 9.1 g/dL (13.0-17.5) Hematocrit 27.3 % (39.0-53.0) Mean Corpuscular Volume 101 fL (79-100) Mean Corpuscular Hemoglobin 34 pg (25-35) Mean Corpuscular Hemoglobin Concent 34 g/dL (31-37) Red Cell Distribution Width 13.7 % (11.5-14.5) Platelet Count 212 x10^3/uL (140-400) Neutrophils (%) (Auto) 77 % (31-73) Lymphocytes (%) (Auto) 12 % (24-48) Monocytes (%) (Auto) 7 % (0-9) Eosinophils (%) (Auto) 3 % (0-3) Basophils (%) (Auto) 1 % (0-3) Neutrophils # (Auto) 8.7 x10^3uL (1.8-7.7) Lymphocytes # (Auto) 1.4 x10^3/uL (1.0-4.8) Monocytes # (Auto) 0.8 x10^3/uL (0.0-1.1) Eosinophils # (Auto) 0.3 x10^3/uL (0.0-0.7) Basophils # (Auto) 0.1 x10^3/uL (0.0-0.2) Sodium Level 142 mmol/L (136-145) Potassium Level 3.8 mmol/L (3.5-5.1) Chloride Level 100 mmol/L (98-107) Carbon Dioxide Level 29 mmol/L (21-32) Anion Gap 13 (6-14) Blood Urea Nitrogen 66 mg/dL (8-26) Creatinine 7.5 mg/dL (0.7-1.3) Estimated GFR (Cockcroft-Gault) 7.2 Glucose Level 120 mg/dL (70-99) Calcium Level 8.9 mg/dL (8.5-10.1) Phosphorus Level 4.8 mg/dL (2.6-4.7) Magnesium Level 2.3 mg/dL (1.8-2.4) Albumin 2.8 g/dL (3.4-5.0) Results All relevant outside records, renal labs, imaging studies, telemetry/EKG's were reviewed. TREVIN CERNA MD Jul 30, 2018 11:14
[2018-07-30 14:36] VITALS: BP 148/72
[2018-07-30] MEDS: APIXABAN 5 MG TABLET. PO SCH ×2 (15:14→21:52)
[2018-07-30] MEDS: SACUBITRIL/VALSARTAN 49/51MG TABLET. PO SCH ×2 (15:15→21:51)
[2018-07-30] MEDS: ATORVASTATIN CALCIUM 10 MG TABLET. PO SCH (15:16)
[2018-07-30] MEDS: CINACALCET HCL 30 MG TABLET PO SCH (15:17)
[2018-07-30] MEDS: ALLOPURINOL 100 MG TABLET. PO SCH (15:18)
[2018-07-30] MEDS: ANTI-COAG MONITOR BY PHARMACY. MC PRN (16:18)
[2018-07-30] MEDS: FOLIC/VIT B COMP W-C (RENAL) TABLET. PO SCH (17:58)
[2018-07-30 19:00] VITALS: BP 129/58
[2018-07-30] MEDS: INSULIN GLARGINE 300 UNITS/3 ML INSULN.PEN. SQ SCH (22:02)
[2018-07-30 23:00] VITALS: BP 117/72
[2018-07-31 03:06] VITALS: BP 163/65
[2018-07-31 05:39] LABS: BASO # 0.1 x10^3/uL (0.0-0.2); BASO % 1 % (0-3); EOS # 0.2 x10^3/uL (0.0-0.7); EOS % 2 % (0-3); HEMATOCRIT 26.8 % (39.0-53.0); HEMOGLOBIN 8.9 g/dL (13.0-17.5); LYMPH # 1.5 x10^3/uL (1.0-4.8); LYMPH % 14 % (24-48); MEAN CORPUSCULAR HEMOGLOBIN 33 pg (25-35); MEAN CORPUSCULAR HGB CONC 33 g/dL (31-37); MEAN CORPUSCULAR VOLUME 101 fL (79-100); MONO # 0.8 x10^3/uL (0.0-1.1); MONO % 7 % (0-9); NEUT # 8.2 x10^3uL (1.8-7.7); NEUT % 76 % (31-73); PLATELET COUNT 225 x10^3/uL (140-400); RED BLOOD COUNT 2.67 x10^6/uL (4.30-5.70); RED CELL DISTRIBUTION WIDTH 13.7 % (11.5-14.5); WHITE BLOOD COUNT 10.8 x10^3/uL (4.0-11.0)
[2018-07-31 06:14] LABS: ALBUMIN 2.7 g/dL (3.4-5.0); CALCIUM 8.9 mg/dL (8.5-10.1); CREATININE 5.3 mg/dL (0.7-1.3); GFR 10.8; PHOSPHORUS 3.6 mg/dL (2.6-4.7); POTASSIUM 3.8 mmol/L (3.5-5.1)
[2018-07-31 07:15] VITALS: BP 144/73
[2018-07-31] MEDS: INSULIN LISPRO 300 UNITS/3 ML INSULN.PEN. SQ SCH ×4 (08:00→11:53)
[2018-07-31] MEDS ORDERED: ASPIRIN ENTERIC COATED 81 MG TABLET.DR. PO SCH (08:00)
[2018-07-31] MEDS: CARVEDILOL 6.25 MG TABLET. PO SCH (09:08)
[2018-07-31] MEDS: APIXABAN 5 MG TABLET. PO SCH (09:08)
[2018-07-31] MEDS: FUROSEMIDE 80 MG TABLET. PO SCH (09:09)
[2018-07-31] MEDS: FERROUS SULFATE 325 MG TABLET. PO SCH (09:09)
[2018-07-31] MEDS: SACUBITRIL/VALSARTAN 49/51MG TABLET. PO SCH (09:09)
[2018-07-31] MEDS: SEVELAMER CARBONATE 800 MG TABLET. PO SCH (09:10)
[2018-07-31] MEDS: CINACALCET HCL 30 MG TABLET PO SCH (09:10)
[2018-07-31] MEDS: ATORVASTATIN CALCIUM 10 MG TABLET. PO SCH (09:11)
[2018-07-31] MEDS: ALLOPURINOL 100 MG TABLET. PO SCH (09:13)
[2018-07-31] MEDS: FOLIC/VIT B COMP W-C (RENAL) TABLET. PO SCH (09:25)
--- NOTE | 2018-07-31 10:34 | PDOC ---
PROGRESS NOTES Chief Complaint Chief Complaint Acute CHF exacerbation Shortness of breath Hypoxia Htn DM2 controlled ESRD on HD mwf pafib on eliquis, carvedilol h/o left renal Ca s/p nephrectomy rt toe chronic wound s/p i and d History of Present Illness History of Present Illness Mr Jones is a 72 yo male w/ PMHx afib, CHF, ESRD on HD who initially presented to [facility] secondary to shortness of breath and feeling very weak and O2 saturations around Pt was seen and examined during HD today He was resting comfortably in NAD Reports feeling much better now compared to status at admission Discussed with RN Vitals Vitals Vital Signs Date Time Temp Pulse Resp B/P (MAP) Pulse Ox O2 Delivery O2 Flow Rate FiO2 07/31/18 09:09 70 144/73 07/31/18 07:15 98.2 18 98 Room Air 98.2 07/30/18 20:00 3.0 Physical Exam General: Alert, Oriented X3, Cooperative, No acute distress Heart: No murmurs, Other (rate irregular) Lungs: Clear Abdomen: Normal bowel sounds, Soft, No tenderness Extremities: No clubbing, No cyanosis, Other (trace edema improving) Skin: No rashes, Other (R foot has bandage applied that goes up to R ankle) Labs LABS Laboratory Tests Test 07/30/18 13:55 07/30/18 16:57 07/30/18 20:49 07/31/18 02:55 Glucose (Fingerstick) 85 mg/dL (70-99) 198 mg/dL (70-99) 129 mg/dL (70-99) 108 mg/dL (70-99) Test 07/31/18 04:30 07/31/18 07:31 White Blood Count 10.8 x10^3/uL (4.0-11.0) Red Blood Count 2.67 x10^6/uL (4.30-5.70) Hemoglobin 8.9 g/dL (13.0-17.5) Hematocrit 26.8 % (39.0-53.0) Mean Corpuscular Volume 101 fL (79-100) Mean Corpuscular Hemoglobin 33 pg (25-35) Mean Corpuscular Hemoglobin Concent 33 g/dL (31-37) Red Cell Distribution Width 13.7 % (11.5-14.5) Platelet Count 225 x10^3/uL (140-400) Neutrophils (%) (Auto) 76 % (31-73) Lymphocytes (%) (Auto) 14 % (24-48) Monocytes (%) (Auto) 7 % (0-9) Eosinophils (%) (Auto) 2 % (0-3) Basophils (%) (Auto) 1 % (0-3) Neutrophils # (Auto) 8.2 x10^3uL (1.8-7.7) Lymphocytes # (Auto) 1.5 x10^3/uL (1.0-4.8) Monocytes # (Auto) 0.8 x10^3/uL (0.0-1.1) Eosinophils # (Auto) 0.2 x10^3/uL (0.0-0.7) Basophils # (Auto) 0.1 x10^3/uL (0.0-0.2) Sodium Level 143 mmol/L (136-145) Potassium Level 3.8 mmol/L (3.5-5.1) Chloride Level 102 mmol/L (98-107) Carbon Dioxide Level 30 mmol/L (21-32) Anion Gap 11 (6-14) Blood Urea Nitrogen 47 mg/dL (8-26) Creatinine 5.3 mg/dL (0.7-1.3) Estimated GFR (Cockcroft-Gault) 10.8 Glucose Level 123 mg/dL (70-99) Calcium Level 8.9 mg/dL (8.5-10.1) Phosphorus Level 3.6 mg/dL (2.6-4.7) Albumin 2.7 g/dL (3.4-5.0) Glucose (Fingerstick) 109 mg/dL (70-99) Review of Systems Review of Systems Pt denies CP, SOB, PRATT, n/v/d, abd pain Assessment and Plan Assessmemt and Plan Assessment Acute CHF exacerbation Shortness of breath Hypoxia Htn DM2 controlled ESRD on HD mwf pafib on eliquis, carvedilol h/o left renal Ca s/p nephrectomy rt toe chronic wound s/p i and d Plan Plan to discharge today- Ok'd by nephrology Continue HD as scheduled Continue wound care, will follow up outpt Home meds Insulin Eloquis for Afib PT/OT Appreciate subspecialty recs Comment Review of Relevant I have reviewed the following items jennifer (where applicable) has been applied. Labs Laboratory Tests Test 07/29/18 10:33 07/29/18 16:49 07/29/18 20:11 07/30/18 06:42 Glucose (Fingerstick) 143 mg/dL (70-99) 119 mg/dL (70-99) 152 mg/dL (70-99) White Blood Count 11.3 x10^3/uL (4.0-11.0) Red Blood Count 2.71 x10^6/uL (4.30-5.70) Hemoglobin 9.1 g/dL (13.0-17.5) Hematocrit 27.3 % (39.0-53.0) Mean Corpuscular Volume 101 fL (79-100) Mean Corpuscular Hemoglobin 34 pg (25-35) Mean Corpuscular Hemoglobin Concent 34 g/dL (31-37) Red Cell Distribution Width 13.7 % (11.5-14.5) Platelet Count 212 x10^3/uL (140-400) Neutrophils (%) (Auto) 77 % (31-73) Lymphocytes (%) (Auto) 12 % (24-48) Monocytes (%) (Auto) 7 % (0-9) Eosinophils (%) (Auto) 3 % (0-3) Basophils (%) (Auto) 1 % (0-3) Neutrophils # (Auto) 8.7 x10^3uL (1.8-7.7) Lymphocytes # (Auto) 1.4 x10^3/uL (1.0-4.8) Monocytes # (Auto) 0.8 x10^3/uL (0.0-1.1) Eosinophils # (Auto) 0.3 x10^3/uL (0.0-0.7) Basophils # (Auto) 0.1 x10^3/uL (0.0-0.2) Sodium Level 142 mmol/L (136-145) Potassium Level 3.8 mmol/L (3.5-5.1) Chloride Level 100 mmol/L (98-107) Carbon Dioxide Level 29 mmol/L (21-32) Anion Gap 13 (6-14) Blood Urea Nitrogen 66 mg/dL (8-26) Creatinine 7.5 mg/dL (0.7-1.3) Estimated GFR (Cockcroft-Gault) 7.2 Glucose Level 120 mg/dL (70-99) Calcium Level 8.9 mg/dL (8.5-10.1) Phosphorus Level 4.8 mg/dL (2.6-4.7) Magnesium Level 2.3 mg/dL (1.8-2.4) Albumin 2.8 g/dL (3.4-5.0) Test 07/30/18 07:43 07/30/18 13:55 07/30/18 16:57 07/30/18 20:49 Glucose (Fingerstick) 100 mg/dL (70-99) 85 mg/dL (70-99) 198 mg/dL (70-99) 129 mg/dL (70-99) Test 07/31/18 02:55 07/31/18 04:30 07/31/18 07:31 Glucose (Fingerstick) 108 mg/dL (70-99) 109 mg/dL (70-99) White Blood Count 10.8 x10^3/uL (4.0-11.0) Red Blood Count 2.67 x10^6/uL (4.30-5.70) Hemoglobin 8.9 g/dL (13.0-17.5) Hematocrit 26.8 % (39.0-53.0) Mean Corpuscular Volume 101 fL (79-100) Mean Corpuscular Hemoglobin 33 pg (25-35) Mean Corpuscular Hemoglobin Concent 33 g/dL (31-37) Red Cell Distribution Width 13.7 % (11.5-14.5) Platelet Count 225 x10^3/uL (140-400) Neutrophils (%) (Auto) 76 % (31-73) Lymphocytes (%) (Auto) 14 % (24-48) Monocytes (%) (Auto) 7 % (0-9) Eosinophils (%) (Auto) 2 % (0-3) Basophils (%) (Auto) 1 % (0-3) Neutrophils # (Auto) 8.2 x10^3uL (1.8-7.7) Lymphocytes # (Auto) 1.5 x10^3/uL (1.0-4.8) Monocytes # (Auto) 0.8 x10^3/uL (0.0-1.1) Eosinophils # (Auto) 0.2 x10^3/uL (0.0-0.7) Basophils # (Auto) 0.1 x10^3/uL (0.0-0.2) Sodium Level 143 mmol/L (136-145) Potassium Level 3.8 mmol/L (3.5-5.1) Chloride Level 102 mmol/L (98-107) Carbon Dioxide Level 30 mmol/L (21-32) Anion Gap 11 (6-14) Blood Urea Nitrogen 47 mg/dL (8-26) Creatinine 5.3 mg/dL (0.7-1.3) Estimated GFR (Cockcroft-Gault) 10.8 Glucose Level 123 mg/dL (70-99) Calcium Level 8.9 mg/dL (8.5-10.1) Phosphorus Level 3.6 mg/dL (2.6-4.7) Albumin 2.7 g/dL (3.4-5.0) Laboratory Tests Test 07/30/18 13:55 07/30/18 16:57 07/30/18 20:49 07/31/18 02:55 Glucose (Fingerstick) 85 mg/dL (70-99) 198 mg/dL (70-99) 129 mg/dL (70-99) 108 mg/dL (70-99) Test 07/31/18 04:30 07/31/18 07:31 White Blood Count 10.8 x10^3/uL (4.0-11.0) Red Blood Count 2.67 x10^6/uL (4.30-5.70) Hemoglobin 8.9 g/dL (13.0-17.5) Hematocrit 26.8 % (39.0-53.0) Mean Corpuscular Volume 101 fL (79-100) Mean Corpuscular Hemoglobin 33 pg (25-35) Mean Corpuscular Hemoglobin Concent 33 g/dL (31-37) Red Cell Distribution Width 13.7 % (11.5-14.5) Platelet Count 225 x10^3/uL (140-400) Neutrophils (%) (Auto) 76 % (31-73) Lymphocytes (%) (Auto) 14 % (24-48) Monocytes (%) (Auto) 7 % (0-9) Eosinophils (%) (Auto) 2 % (0-3) Basophils (%) (Auto) 1 % (0-3) Neutrophils # (Auto) 8.2 x10^3uL (1.8-7.7) Lymphocytes # (Auto) 1.5 x10^3/uL (1.0-4.8) Monocytes # (Auto) 0.8 x10^3/uL (0.0-1.1) Eosinophils # (Auto) 0.2 x10^3/uL (0.0-0.7) Basophils # (Auto) 0.1 x10^3/uL (0.0-0.2) Sodium Level 143 mmol/L (136-145) Potassium Level 3.8 mmol/L (3.5-5.1) Chloride Level 102 mmol/L (98-107) Carbon Dioxide Level 30 mmol/L (21-32) Anion Gap 11 (6-14) Blood Urea Nitrogen 47 mg/dL (8-26) Creatinine 5.3 mg/dL (0.7-1.3) Estimated GFR (Cockcroft-Gault) 10.8 Glucose Level 123 mg/dL (70-99) Calcium Level 8.9 mg/dL (8.5-10.1) Phosphorus Level 3.6 mg/dL (2.6-4.7) Albumin 2.7 g/dL (3.4-5.0) Glucose (Fingerstick) 109 mg/dL (70-99) Medications Current Medications Acetaminophen (Tylenol) 500 mg PRN Q6HRS PRN PO MILD PAIN / TEMP; Start at 19:45 Ondansetron HCl (Zofran) 4 mg PRN Q6HRS PRN IV NAUSEA/VOMITING; Start 07/27/18 at 19:45 Acetaminophen/ Hydrocodone Bitart (Lortab 5/325) 1 tab PRN Q6HRS PRN PO MODERATE TO SEVER PAIN; Start 07/27/18 at 19:45 Albuterol Sulfate (Ventolin Neb Soln) 2.5 mg PRN Q6HRS PRN NEB SHORTNESS OF BREATH; Start 07/27/18 at 19:45 Temazepam (Restoril) 7.5 mg PRN QHS PRN PO INSOMNIA; Start 07/27/18 at 19:45 Allopurinol (Zyloprim) 100 mg DAILY PO Last administered on 07/31/18 09:13; Start 07/28/18 at 09:00 Apixaban (Eliquis) 5 mg BID PO Last administered on 07/31/18 09:08; Start at 21:00 Carvedilol (Coreg) 6.25 mg BIDWMEALS PO Last administered on 07/28/18 08:33; Start 07/28/18 at 08:00; Stop 07/28/18 at 14:46; Status DC Cinacalcet (Sensipar) 60 mg DAILY PO Last administered on 07/31/18 09:10; Start 07/28/18 at 09:00 Ferrous Sulfate (Feosol) 325 mg TID PO Last administered on 07/31/18 09:09; Start 07/27/18 at 21:00 Vitamin B Complex/ Vitamin C (Mindy-Maureen) 1 tab DAILY PO Last administered on 09:25; Start 07/28/18 at 09:00 Furosemide (Lasix) 80 mg BID94 PO Last administered on 07/31/18 09:09; Start 07/28/18 at 09:00 Sevelamer Carbonate (Renvela) 2,400 mg TID PO Last administered on 07/31/18 09 :10; Start 07/27/18 at 21:00 Non-Formulary Medication (Insulin Aspart (Novolog Flexpen)) TIDWMEALS SQ ; Start 07/28/18 at 08:00; Stop 07/28/18 at 10:12; Status DC Insulin Glargine (Lantus) 20 units QHS SQ Last administered on 07/30/18 22:02 ; Start 07/27/18 at 21:00 Atorvastatin Calcium (Lipitor) 5 mg DAILY PO Last administered on 07/31/18 09: 11; Start 07/28/18 at 09:00 Sacubitril/ Valsartan (Entresto 49 Mg-51 Mg) 1 tab BID PO Last administered on 07/31/18 09:09; Start 07/27/18 at 21:00 Insulin Human Lispro (HumaLOG) 3 units TIDWMEALS SQ Last administered on 09:18; Start 07/28/18 at 12:00 Insulin Human Lispro (HumaLOG) 0-5 UNITS TIDWMEALS SQ Last administered on 07/30at 18:07; Start 07/28/18 at 12:00 Dextrose (Dextrose 50%-Water Syringe) 12.5 gm PRN Q15MIN PRN IV SEE COMMENTS; Start 07/28/18 at 10:15 Sodium Chloride 1,000 ml @ 1,000 mls/hr Q1H PRN IV hypotension; Start 07/28/18 at 10:24; Stop 07/28/18 at 16:23; Status DC Diphenhydramine HCl (Benadryl) 25 mg 1X PRN PRN IV ITCHING; Start 07/28/18 at 10:30; Stop 07/29/18 at 10:29; Status DC Diphenhydramine HCl (Benadryl) 25 mg 1X PRN PRN IV ITCHING; Start 07/28/18 at 10:30; Stop 07/29/18 at 10:29; Status DC Sodium Chloride 1,000 ml @ 400 mls/hr Q2H30M PRN IV PATENCY; Start 07/28/18 at 10:24; Stop 07/28/18 at 22:23; Status DC Info (PHARMACY MONITORING -- do not chart) 1 each PRN DAILY PRN MC SEE COMMENTS ; Start 07/28/18 at 10:30; Status Cancel Info (Anti-Coagulation Monitoring By Pharmacy) 1 each PRN DAILY PRN MC SEE COMMENTS Last administered on 07/30/18at 16:18; Start 07/28/18 at 12:00 Carvedilol (Coreg) 12.5 mg BIDWMEALS PO Last administered on 07/29/18at 08:17; Start 07/28/18 at 17:00; Stop 07/29/18 at 11:49; Status DC Carvedilol (Coreg) 6.25 mg 1X ONCE PO Last administered on 07/28/18at 16:27; Start 07/28/18 at 14:45; Stop 07/28/18 at 14:47; Status DC Carvedilol (Coreg) 6.25 mg BIDWMEALS PO Last administered on 07/31/18at 09:08; Start 07/29/18 at 17:00 Sodium Chloride 1,000 ml @ 1,000 mls/hr Q1H PRN IV hypotension; Start 07/30/18 at 08:06; Stop 07/30/18 at 14:05; Status DC Sodium Chloride 1,000 ml @ 400 mls/hr Q2H30M PRN IV PATENCY; Start 07/30/18 at 08:06; Stop 07/30/18 at 20:05; Status DC Info (PHARMACY MONITORING -- do not chart) 1 each PRN DAILY PRN MC SEE COMMENTS ; Start 07/30/18 at 08:15; Status UNV Info (PHARMACY MONITORING -- do not chart) 1 each PRN DAILY PRN MC SEE COMMENTS ; Start 07/30/18 at 08:15 Aspirin (Ecotrin) 81 mg [id number] PO Last administered on 07/31/18at 09:24; Start 07/31/18 at 08:00 Active Scripts Active Mindy-Maureen Tablet (Folic Acid/Vitamin B Comp W-C) 0.8 Mg Tablet 1 Tab PO DAILY 30 Days Allopurinol 100 Mg Tablet 100 Mg PO DAILY Novolog Flexpen (Insulin Aspart) 100 Unit/1 Ml Insuln.pen 0 Units SQ TIDWMEALS 30 Days Levemir Flextouch (Insulin Detemir) 100 Unit/1 Ml Insuln.pen 20 Units SQ QHS 30 Days Reported Renvela (Sevelamer Carbonate) 800 Mg Tablet 3 Tab PO TID Entresto 49 mg-51 mg Tablet (Sacubitril/Valsartan) 1 Each Tablet 1 Each PO BID Lasix (Furosemide) 40 Mg Tablet 80 Mg PO BID Sensipar (Cinacalcet Hcl) 30 Mg Tablet 60 Mg PO DAILY Eliquis (Apixaban) 5 Mg Tablet 5 Mg PO BID Ferrous Sulfate 325 Mg Tablet 1 Tab PO TID Coreg (Carvedilol) 6.25 Mg Tablet 1 Tab PO BID does not take morning of dialysis Pravastatin Sodium 20 Mg Tablet 20 Mg PO DAILY Vitals/I & O Vital Sign - Last 24 Hours 07/30/18 07/30/18 07/30/18 07/30/18 14:36 15:15 17:59 19:00 Temp 98.1 98.0 98.1 98.0 Pulse 75 75 75 64 Resp 20 20 B/P (MAP) 148/72 (97) 148/72 148/72 129/58 (81) Pulse Ox 92 O2 Delivery Nasal Cannula Nasal Cannula O2 Flow Rate 3.0 2.0 07/30/18 07/30/18 07/30/18 07/31/18 20:00 21:51 23:00 03:06 Temp 98.2 98.2 98.2 98.2 Pulse 64 70 73 Resp 18 18 B/P (MAP) 129/58 117/72 (87) 163/65 (97) Pulse Ox 91 95 O2 Delivery Nasal Cannula BiPAP/CPAP Room Air O2 Flow Rate 3.0 07/31/18 07/31/18 07/31/18 07:15 09:08 09:09 Temp 98.2 98.2 Pulse 70 70 70 Resp 18 B/P (MAP) 144/73 (96) 144/73 144/73 Pulse Ox 98 O2 Delivery Room Air Intake and Output 07/30/18 07/30/18 07/31/18 15:00 23:00 07:00 Intake Total 175 ml 370 ml 0 ml Balance 175 ml 370 ml 0 ml MARCUS ROD III DO Jul 31, 2018 10:34
[2018-07-31 11:05] VITALS: BP 139/71
--- NOTE | 2018-07-31 13:57 | NUR ---
Discharge teaching provided written and verbal to pt's ,understanding verbalized. Dismissed to home with all belongings accompanied by his . Transported to exit per w/c at 1330.
--- NOTE | 2018-07-31 14:17 | DS ---
DATE OF DISCHARGE: 07/31/2018 ADMISSION DIAGNOSES: Volume overload; end-stage renal disease, on dialysis; acute on chronic systolic and diastolic heart failure; hypoxia; hypertension; diabetes; atrial fibrillation; chronic anticoagulation; history of renal cell carcinoma with status post nephrectomy. DISCHARGE DIAGNOSIS: Resolving volume overload. CONSULTS: Nephrology and Wound Care and Cardiology. PROCEDURES: None. HOSPITAL COURSE: The patient is a pleasant middle-aged male, who presented with acute on chronic systolic and diastolic heart failure and volume overload. He is on dialysis. I think he had missed a day or two. Basically, we admitted the patient. The above consults were obtained. We dialyzed him. Did some physical therapy and occupational therapy. Continued his home meds over the past couple of days. He has returned to his baseline. PHYSICAL EXAMINATION: This morning, I examined him. CARDIOVASCULAR: His heart tones were normal. LUNGS: Clear. EXTREMITIES: He had trace edema, but overall is at his baseline. We plan to discharge if okay with the consultants. DISPOSITION: Home. ACTIVITY: As tolerated. DIET: Renal. MEDICATIONS: Please see the MRAD. TOTAL TIME: 36 minutes. MARCUS ROD DO DR: RORO/vikki JOB#: [id number] / [id number]
== END 2018-07-31 13:30 | disposition home or self-care (01) | DRG 291 ==
LOC: 5 NORTH 18:45
PROVIDERS: ADMIT Internal Medicine; ATTEND Internal Medicine
PROC: 5A1D70Z Performance of Urinary Filtration, Intermittent, Less than 6 Hours Per Day (ICD-10-PCS; 2018-07-28)
PROC: 5A09357 Assistance with Respiratory Ventilation, Less than 24 Consecutive Hours, Continuous Positive Airway Pressure (ICD-10-PCS; principal; 2018-07-30)
DX: I13.2 Hypertensive heart and chronic kidney disease with heart failure and with stage 5 chronic kidney disease, or end stage renal disease (principal); I50.43 Acute on chronic combined systolic (congestive) and diastolic (congestive) heart failure; N18.6 End stage renal disease; I24.8 Other forms of acute ischemic heart disease; D63.8 Anemia in other chronic diseases classified elsewhere; I48.2 Chronic atrial fibrillation; E11.22 Type 2 diabetes mellitus with diabetic chronic kidney disease; L97.512 Non-pressure chronic ulcer of other part of right foot with fat layer exposed; E11.621 Type 2 diabetes mellitus with foot ulcer; E11.622 Type 2 diabetes mellitus with other skin ulcer; E78.5 Hyperlipidemia, unspecified; I25.10 Atherosclerotic heart disease of native coronary artery without angina pectoris; K21.9 Gastro-esophageal reflux disease without esophagitis; M19.90 Unspecified osteoarthritis, unspecified site; Z99.2 Dependence on renal dialysis; Z82.49 Family history of ischemic heart disease and other diseases of the circulatory system; Z88.8 Allergy status to other drugs, medicaments and biological substances; Z91.018 Allergy to other foods; Z90.5 Acquired absence of kidney; Z85.528 Personal history of other malignant neoplasm of kidney; Z79.01 Long term (current) use of anticoagulants; Z86.73 Personal history of transient ischemic attack (TIA), and cerebral infarction without residual deficits; Z83.3 Family history of diabetes mellitus; Z87.891 Personal history of nicotine dependence; Z91.15 Patient's noncompliance with renal dialysis
CPT/HCPCS: 36415; 80048; 80061; 80069; 82962; 83735; 84484; 85025; 93306; 93926; 94760; J1815

== ENCOUNTER → 2018-08-05 | Outpatient (CLI) | payer MEDICARE, BC ==
[2018-07-31 11:05] VITALS: BP 139/71
[~2018-08-05] MED LIST changes: +AMLO5TAB10 PO
== END | disposition home or self-care (01) ==
LOC: PMGWOUND 09:51
PROVIDERS: ATTEND Emergency Medicine Undersea and Hyperbaric Medicine
DX: E11.621 Type 2 diabetes mellitus with foot ulcer (principal); I70.201 Unspecified atherosclerosis of native arteries of extremities, right leg; L97.512 Non-pressure chronic ulcer of other part of right foot with fat layer exposed; E11.36 Type 2 diabetes mellitus with diabetic cataract; E11.51 Type 2 diabetes mellitus with diabetic peripheral angiopathy without gangrene; I13.2 Hypertensive heart and chronic kidney disease with heart failure and with stage 5 chronic kidney disease, or end stage renal disease; E11.22 Type 2 diabetes mellitus with diabetic chronic kidney disease; N18.6 End stage renal disease; I50.814 Right heart failure due to left heart failure; I50.43 Acute on chronic combined systolic (congestive) and diastolic (congestive) heart failure; L84 Corns and callosities; M10.9 Gout, unspecified; E78.49 Other hyperlipidemia; I48.0 Paroxysmal atrial fibrillation; I48.1 Persistent atrial fibrillation; I48.2 Chronic atrial fibrillation; M19.90 Unspecified osteoarthritis, unspecified site; E21.1 Secondary hyperparathyroidism, not elsewhere classified; K21.9 Gastro-esophageal reflux disease without esophagitis; N40.1 Benign prostatic hyperplasia with lower urinary tract symptoms; I25.10 Atherosclerotic heart disease of native coronary artery without angina pectoris; E78.00 Pure hypercholesterolemia, unspecified; Z99.2 Dependence on renal dialysis; E66.01 Morbid (severe) obesity due to excess calories; Z68.32 Body mass index [BMI] 32.0-32.9, adult; Z79.4 Long term (current) use of insulin; Z79.01 Long term (current) use of anticoagulants; Z87.891 Personal history of nicotine dependence; Z85.528 Personal history of other malignant neoplasm of kidney; Z88.8 Allergy status to other drugs, medicaments and biological substances; Z86.73 Personal history of transient ischemic attack (TIA), and cerebral infarction without residual deficits
CPT/HCPCS: 11042

== ENCOUNTER 2018-08-07 11:11 | Inpatient (IN) | payer MEDICARE, BC ==
[~2018-08-07] VITALS: Ht 182.9 cm; Wt 117.1 kg
[~2018-08-07 11:11] MED LIST changes: -AMLO5TAB10 PO
[2018-08-07 13:00] VITALS: BP 131/67
--- NOTE | 2018-08-07 13:10 | PDOC1 ---
History and Physical Date of Admission Date of Admission DATE: 08/07/18 TIME: 13:09 Source Source: Chart review, Patient History of Present Illness History of Present Illness Mr. Jones presented to the ER today at [place] with acute dyspnea. he feels more swollen in his face and his legs are swollen as well he has HD MWF, has not missed recent admit here < 2 weeks ago, went home 1 week ago, and he has been weak, has had a cough at , and has some worse swelling. He complains of orthopnea, but appears comfortable, no chest pain Past Medical History Cardiovascular: AFIB, CHF, HTN, Hyperlipidemia Pulmonary: Pneumonia CENTRAL NERVOUS SYSTEM: CVA GI: No pertinent hx Heme/Onc: Anemia NOS Psych: No pertinent hx Musculoskeletal: Osteoarthritis Rheumatologic: No pertinent hx, Gout Infectious disease: No pertinent hx Renal/: Chronic renal failure, Renal Ca. Endocrine: Diabetes Past Surgical History Past Surgical History: Other Family History Family History: Diabetes, Heart Disease, Hypertension Social History Smoke: No ALCOHOL: none Drugs: None Current Medications Current Medications Active Scripts Active Mindy-Maureen Tablet (Folic Acid/Vitamin B Comp W-C) 0.8 Mg Tablet 1 Tab PO DAILY 30 Days Allopurinol 100 Mg Tablet 100 Mg PO DAILY Novolog Flexpen (Insulin Aspart) 100 Unit/1 Ml Insuln.pen 0 Units SQ TIDWMEALS 30 Days Levemir Flextouch (Insulin Detemir) 100 Unit/1 Ml Insuln.pen 20 Units SQ QHS 30 Days Reported Renvela (Sevelamer Carbonate) 800 Mg Tablet 3 Tab PO TID Entresto 49 mg-51 mg Tablet (Sacubitril/Valsartan) 1 Each Tablet 1 Each PO BID Lasix (Furosemide) 40 Mg Tablet 80 Mg PO BID Sensipar (Cinacalcet Hcl) 30 Mg Tablet 60 Mg PO DAILY Eliquis (Apixaban) 5 Mg Tablet 5 Mg PO BID Ferrous Sulfate 325 Mg Tablet 1 Tab PO TID Coreg (Carvedilol) 6.25 Mg Tablet 1 Tab PO BID does not take morning of dialysis Pravastatin Sodium 20 Mg Tablet 20 Mg PO DAILY Allergies Allergies: Coded Allergies: nut - unspecified (Verified Allergy, Intermediate, 01/13/18) lisinopril (Verified Adverse Reaction, Intermediate, Cough, 12/27/16) Physical Exam General: Alert, Oriented X3, Cooperative, No acute distress HEENT: Atraumatic, PERRLA Lungs: Clear to auscultation Heart: S1S2, irregularly irregular Extremities: No cyanosis Skin: No breakdown Neuro: Normal speech Psych/Mental Status: Mental status NL, Mood NL VTE Prophylaxis Ordered VTE Prophylaxis Devices: No VTE Pharmacological Prophylaxi: Yes Assessment/Plan Assessment/Plan 1. Acute on chronic systolic CHF: EF 35 %. poorly compensated 2. ESRD on HD with HTn 3. CAD and Hyperlipidemia; 4. Diabetes, II 5. Anemia of chronic disease 6. Chronic Atrial fibrillation 7. H/o CVA cardiology consult to consider cardiac cath, further CV mayer, discussed with CV midlevel RICKEY ISRAEL MD Aug 07, 2018 13:10
--- NOTE | 2018-08-07 13:46 | PDOC ---
CARDIO Progress Notes Date and Time Date of Service 08/07/2018 Time of Evaluation 1310 Subjective Subjective: No Chest Pain, No Palpitations, Other (some SOA still has orthopnea ) Vitals Weight Weight [ ] Physical Exam HEENT: Neck Supple W Full Motion Chest: Symmetric LUNGS: Other (basilar crackles and diminished) Heart: irregularly irregular (AFIB) Abdomen: Soft N/T Extremities: No Calf Tenderness, Other (right foot wound with dressing; 2-3+ bilateral LE pitting edema) Neurology: alert, oriented, follow commands Assessment Assessment HPI: This is a 72 yo male admitted for complains of SOA. He was recently admitted with CHF and discharged. on 07/31/2018 and was doing well at that time with dialysis. Consult if for recurrent CHF. He has been having insomnia, increasing orthopnea and increasing leg edema. Positive for MCDANIEL. He has been having nonproductive cough but no runny nose. No prior exposure or any family members who has the flu or URI. No significant body aches and denies any fever or chills. He was suppose to follow up with [facility] cardiology and have a stress test. 1. Acute on chronic systolic CHF: recurrent despite HD with recent LVEF 35-40% , porribly ischemic induced 2. Hypertension: controlled 3. Hyperlipidemia; lipids on goal 4. Diabetes, II; as per PCP 5. Chronic RLE wound; followed by wound care clinic. No significant LE PAD per recent sono 6. ESRD on HD; MWF 7. Anemia of chronic disease 8. Chronic AFIB; rate controlled. on Eliquis for stroke prevention 9. H/o CVA 10. CAD; noted 50% OM lesion on C 03/2017 Recommendations 1. Continue Entresto, Lasix, and home coreg. Hold eliquis tonight in anticipation for [facility] tomorrow. 2. Continue ASA. Will check for flu and if neg then will plan for [facility] tomorrow. 3. Fluid offloading via HD as per nephrology 4. Continue with secondary prevention measures. 5. Trop and repeat EKG. JODI OLIVEIRA APRN Aug 07, 2018 13:46
[2018-08-07] MEDS ORDERED: ASPIRIN ENTERIC COATED 325 MG TABLET.DR. PO ONE (14:00)
[2018-08-07] MEDS: FUROSEMIDE 40 MG TABLET. PO SCH (14:05)
--- NOTE | 2018-08-07 14:14 | EKG ---
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
[2018-08-07 15:01] LABS: INFLUENZA A PATIENT NEGATIVE (NEGATIVE); INFLUENZA B PATIENT NEGATIVE (NEGATIVE)
--- NOTE | 2018-08-07 16:07 | NUR ---
Wound Care Wound care consult for right great toe DFU. Pt is well known to WC team and is seen regularly in [facility]. Cleansed and dressed wound with biopad collagen, contact layer, gauze and tape. Soft cast applied to left foot for offloading. Pt was tearful during visit about coming procedure. No other wounds noted upon skin inspection. Pt left on side of bed with call light in reach. WC will continue to follow for possible changes.
[2018-08-07] MEDS: CARVEDILOL 6.25 MG TABLET. PO SCH (16:44)
[2018-08-07 19:25] VITALS: BP 146/63
[2018-08-07] MEDS: ATORVASTATIN CALCIUM 10 MG TABLET. PO SCH (20:06)
[2018-08-07] MEDS ORDERED: guaiFENesin DM 200MG/20MG 10 ML SYRUP PO PRN (20:30)
[2018-08-07] MEDS ORDERED: HYDROcodone/APAP 5/325MG 1 TAB TABLET PO PRN (20:30)
[2018-08-07 23:25] VITALS: BP 143/67
[2018-08-08] VITALS (11 sets, daily range): BP systolic 144–226; BP diastolic 49–90
[2018-08-08 05:28] LABS: BASO % 1 % (0-3); EOS # 0.2 x10^3/uL (0.0-0.7); EOS % 3 % (0-3); HEMATOCRIT 26.9 % (39.0-53.0); LYMPH # 0.9 x10^3/uL (1.0-4.8); LYMPH % 11 % (24-48); MEAN CORPUSCULAR HEMOGLOBIN 34 pg (25-35); MEAN CORPUSCULAR HGB CONC 33 g/dL (31-37); MEAN CORPUSCULAR VOLUME 101 fL (79-100); MONO # 0.7 x10^3/uL (0.0-1.1); MONO % 8 % (0-9); NEUT # 6.7 x10^3uL (1.8-7.7); NEUT % 78 % (31-73); PLATELET COUNT 166 x10^3/uL (140-400); RED BLOOD COUNT 2.67 x10^6/uL (4.30-5.70); WHITE BLOOD COUNT 8.6 x10^3/uL (4.0-11.0)
[2018-08-08 05:53] LABS: CALCIUM 8.5 mg/dL (8.5-10.1); CREATININE 6.4 mg/dL (0.7-1.3); GFR 8.6; POTASSIUM 4.2 mmol/L (3.5-5.1)
[2018-08-08] MEDS: FUROSEMIDE 40 MG TABLET. PO SCH ×2 (06:42→18:04)
[2018-08-08] MEDS ORDERED: LIDOCAINE 1% Multi-Dose 20 ML VIAL. ONE (07:49)
[2018-08-08] MEDS ORDERED: HEPARIN for ARTERIAL LINE 1,500 ML ONE (07:49)
[2018-08-08] MEDS ORDERED: IODIXANOL 320 MG/ML 100 ML VIAL. ONE ×2 (07:49→09:47)
[2018-08-08] MEDS: ASPIRIN ENTERIC COATED 81 MG TABLET.DR. PO SCH (07:50)
[2018-08-08] MEDS: CARVEDILOL 6.25 MG TABLET. PO SCH ×2 (07:51→15:26)
[2018-08-08] MEDS ORDERED: fentaNYL PF VIAL 100 MCG/2 ML VIAL ONE (08:42)
[2018-08-08] MEDS ORDERED: MIDAZOLAM HCL/PF 5 MG/5 ML VIAL. ONE (08:42)
[2018-08-08] MEDS ORDERED: NITROGLYCERIN 200 MCG/2 ML SYRINGE FOR CATH/VASC LAB. ONE (08:42)
[2018-08-08] MEDS ORDERED: VERAPAMIL 5 MG/2 ML VIAL. ONE (08:42)
[2018-08-08] MEDS ORDERED: HEPARIN for IV BOLUS 10,000 UNIT/10 ML VIAL. ONE (08:42)
[2018-08-08 08:46] LABS: PROTHROMBIN TIME PATIENT 16.7 SEC (11.7-14.0)
[2018-08-08] MEDS ORDERED: ACETAMINOPHEN 500 MG TABLET PO PRN (09:30)
[2018-08-08] MEDS ORDERED: LIDOCAINE 1% Multi-Dose 20 ML VIAL. INJ ONE (09:30)
[2018-08-08] MEDS ORDERED: VERAPAMIL 5 MG/2 ML VIAL. IART ONE (09:30)
[2018-08-08] MEDS ORDERED: MIDAZOLAM HCL/PF 5 MG/5 ML VIAL. IV ONE (09:30)
[2018-08-08] MEDS ORDERED: NITROGLYCERIN 200 MCG/2 ML SYRINGE FOR CATH/VASC LAB. IART ONE (09:30)
[2018-08-08] MEDS ORDERED: ONDANSETRON PF 4 MG/2 ML VIAL. IV PRN (09:30)
[2018-08-08] MEDS ORDERED: ONDANSETRON ODT 4 MG TAB.RAPDIS. PO PRN (09:30)
[2018-08-08] MEDS ORDERED: ALBUTEROL SULFATE 2.5 MG/3 ML NEBU. NEB PRN (09:30)
[2018-08-08] MEDS ORDERED: IODIXANOL 320 MG/ML 100 ML VIAL. IART ONE (09:30)
[2018-08-08] MEDS ORDERED: fentaNYL PF VIAL 100 MCG/2 ML VIAL IV ONE (09:30)
[2018-08-08] MEDS ORDERED: CONTRAST GIVEN. MC PRN (09:30)
[2018-08-08] MEDS ORDERED: HEPARIN for IV BOLUS 10,000 UNIT/10 ML VIAL. IART ONE (09:30)
[2018-08-08] MEDS ORDERED: NITROGLYCERIN OINT 1 GM PACKET. ONE (09:59)
[2018-08-08] MEDS ORDERED: NITROGLYCERIN OINT 1 GM PACKET. TP ONE (10:00)
[2018-08-08] MEDS ORDERED: IV NORMAL SALINE 1000ML BAG 1,000 ML IV SCH (10:18)
[2018-08-08] MEDS ORDERED: 0.9 % SODIUM CHLORIDE 10 ML DISP.SYRIN. IV PRN (10:30)
[2018-08-08] MEDS ORDERED: NITROGLYCERIN SUBLINGUAL 0.4 MG BOTTLE OF 25. SL PRN (10:30)
--- NOTE | 2018-08-08 10:48 | PDOC ---
PROGRESS NOTES Chief Complaint Chief Complaint 1. Acute on chronic systolic CHF: recurrent despite HD with recent LVEF 35-40% , porribly ischemic induced 2. Hypertension: controlled 3. Hyperlipidemia; lipids on goal 4. Diabetes, II; as per PCP 5. Chronic RLE wound; followed by wound care clinic. No significant LE PAD per recent sono 6. ESRD on HD; MWF 7. Anemia of chronic disease 8. Chronic AFIB; rate controlled. on Eliquis for stroke prevention 9. H/o CVA 10. CAD; noted 50% OM lesion on C 03/2017 History of Present Illness History of Present Illness Out having [facility] been going to [facility] post left heart catheterization On Eliquis and aspirin and Lasix Blood pressure on the high side, readmission CHF 07/31/18, recent [facility] admit too/work up - planned for MPI apparently BNP 3540 Creatinine 6.9 dialysis patient Plan: await from [facility] results BP regimen adjustment defer to cards ELytes whil on lasix (so far on PO lasix) Vitals Vitals Vital Signs Date Time Temp Pulse Resp B/P (MAP) Pulse Ox O2 Delivery O2 Flow Rate FiO2 08/08/18 10:18 24 95 Nasal Cannula 2.0 08/08/18 10:18 75 174/67 08/08/18 07:30 97.9 97.9 Physical Exam General: Alert, Oriented X3, Cooperative, No acute distress Heart: Normal S1, Normal S2 Lungs: Clear Extremities: No cyanosis Skin: No breakdown Labs LABS Laboratory Tests Test 08/07/18 14:00 08/07/18 16:44 08/07/18 20:25 08/08/18 04:35 Troponin I Quantitative 0.030 ng/mL (0.000-0.055) Influenza Type A Antigen Negative (NEGATIVE) Influenza Type B Antigen Negative (NEGATIVE) Glucose (Fingerstick) 106 mg/dL (70-99) 186 mg/dL (70-99) White Blood Count 8.6 x10^3/uL (4.0-11.0) Red Blood Count 2.67 x10^6/uL (4.30-5.70) Hemoglobin 9.0 g/dL (13.0-17.5) Hematocrit 26.9 % (39.0-53.0) Mean Corpuscular Volume 101 fL (79-100) Mean Corpuscular Hemoglobin 34 pg (25-35) Mean Corpuscular Hemoglobin Concent 33 g/dL (31-37) Red Cell Distribution Width 14.0 % (11.5-14.5) Platelet Count 166 x10^3/uL (140-400) Neutrophils (%) (Auto) 78 % (31-73) Lymphocytes (%) (Auto) 11 % (24-48) Monocytes (%) (Auto) 8 % (0-9) Eosinophils (%) (Auto) 3 % (0-3) Basophils (%) (Auto) 1 % (0-3) Neutrophils # (Auto) 6.7 x10^3uL (1.8-7.7) Lymphocytes # (Auto) 0.9 x10^3/uL (1.0-4.8) Monocytes # (Auto) 0.7 x10^3/uL (0.0-1.1) Eosinophils # (Auto) 0.2 x10^3/uL (0.0-0.7) Basophils # (Auto) 0.0 x10^3/uL (0.0-0.2) Prothrombin Time 16.7 SEC (11.7-14.0) Prothromb Time International Ratio 1.4 (0.8-1.1) Sodium Level 142 mmol/L (136-145) Potassium Level 4.2 mmol/L (3.5-5.1) Chloride Level 102 mmol/L (98-107) Carbon Dioxide Level 27 mmol/L (21-32) Anion Gap 13 (6-14) Blood Urea Nitrogen 47 mg/dL (8-26) Creatinine 6.4 mg/dL (0.7-1.3) Estimated GFR (Cockcroft-Gault) 8.6 Glucose Level 130 mg/dL (70-99) Calcium Level 8.5 mg/dL (8.5-10.1) Magnesium Level 2.0 mg/dL (1.8-2.4) Test 08/08/18 07:44 Glucose (Fingerstick) 128 mg/dL (70-99) Review of Systems Review of Systems OUt Having [facility] Comment Review of Relevant I have reviewed the following items jennifer (where applicable) has been applied. Labs Laboratory Tests Test 08/07/18 14:00 08/07/18 16:44 08/07/18 20:25 08/08/18 04:35 Troponin I Quantitative 0.030 ng/mL (0.000-0.055) Influenza Type A Antigen Negative (NEGATIVE) Influenza Type B Antigen Negative (NEGATIVE) Glucose (Fingerstick) 106 mg/dL (70-99) 186 mg/dL (70-99) White Blood Count 8.6 x10^3/uL (4.0-11.0) Red Blood Count 2.67 x10^6/uL (4.30-5.70) Hemoglobin 9.0 g/dL (13.0-17.5) Hematocrit 26.9 % (39.0-53.0) Mean Corpuscular Volume 101 fL (79-100) Mean Corpuscular Hemoglobin 34 pg (25-35) Mean Corpuscular Hemoglobin Concent 33 g/dL (31-37) Red Cell Distribution Width 14.0 % (11.5-14.5) Platelet Count 166 x10^3/uL (140-400) Neutrophils (%) (Auto) 78 % (31-73) Lymphocytes (%) (Auto) 11 % (24-48) Monocytes (%) (Auto) 8 % (0-9) Eosinophils (%) (Auto) 3 % (0-3) Basophils (%) (Auto) 1 % (0-3) Neutrophils # (Auto) 6.7 x10^3uL (1.8-7.7) Lymphocytes # (Auto) 0.9 x10^3/uL (1.0-4.8) Monocytes # (Auto) 0.7 x10^3/uL (0.0-1.1) Eosinophils # (Auto) 0.2 x10^3/uL (0.0-0.7) Basophils # (Auto) 0.0 x10^3/uL (0.0-0.2) Prothrombin Time 16.7 SEC (11.7-14.0) Prothromb Time International Ratio 1.4 (0.8-1.1) Sodium Level 142 mmol/L (136-145) Potassium Level 4.2 mmol/L (3.5-5.1) Chloride Level 102 mmol/L (98-107) Carbon Dioxide Level 27 mmol/L (21-32) Anion Gap 13 (6-14) Blood Urea Nitrogen 47 mg/dL (8-26) Creatinine 6.4 mg/dL (0.7-1.3) Estimated GFR (Cockcroft-Gault) 8.6 Glucose Level 130 mg/dL (70-99) Calcium Level 8.5 mg/dL (8.5-10.1) Magnesium Level 2.0 mg/dL (1.8-2.4) Test 08/08/18 07:44 Glucose (Fingerstick) 128 mg/dL (70-99) Laboratory Tests Test 08/07/18 14:00 08/07/18 16:44 08/07/18 20:25 08/08/18 04:35 Troponin I Quantitative 0.030 ng/mL (0.000-0.055) Influenza Type A Antigen Negative (NEGATIVE) Influenza Type B Antigen Negative (NEGATIVE) Glucose (Fingerstick) 106 mg/dL (70-99) 186 mg/dL (70-99) White Blood Count 8.6 x10^3/uL (4.0-11.0) Red Blood Count 2.67 x10^6/uL (4.30-5.70) Hemoglobin 9.0 g/dL (13.0-17.5) Hematocrit 26.9 % (39.0-53.0) Mean Corpuscular Volume 101 fL (79-100) Mean Corpuscular Hemoglobin 34 pg (25-35) Mean Corpuscular Hemoglobin Concent 33 g/dL (31-37) Red Cell Distribution Width 14.0 % (11.5-14.5) Platelet Count 166 x10^3/uL (140-400) Neutrophils (%) (Auto) 78 % (31-73) Lymphocytes (%) (Auto) 11 % (24-48) Monocytes (%) (Auto) 8 % (0-9) Eosinophils (%) (Auto) 3 % (0-3) Basophils (%) (Auto) 1 % (0-3) Neutrophils # (Auto) 6.7 x10^3uL (1.8-7.7) Lymphocytes # (Auto) 0.9 x10^3/uL (1.0-4.8) Monocytes # (Auto) 0.7 x10^3/uL (0.0-1.1) Eosinophils # (Auto) 0.2 x10^3/uL (0.0-0.7) Basophils # (Auto) 0.0 x10^3/uL (0.0-0.2) Prothrombin Time 16.7 SEC (11.7-14.0) Prothromb Time International Ratio 1.4 (0.8-1.1) Sodium Level 142 mmol/L (136-145) Potassium Level 4.2 mmol/L (3.5-5.1) Chloride Level 102 mmol/L (98-107) Carbon Dioxide Level 27 mmol/L (21-32) Anion Gap 13 (6-14) Blood Urea Nitrogen 47 mg/dL (8-26) Creatinine 6.4 mg/dL (0.7-1.3) Estimated GFR (Cockcroft-Gault) 8.6 Glucose Level 130 mg/dL (70-99) Calcium Level 8.5 mg/dL (8.5-10.1) Magnesium Level 2.0 mg/dL (1.8-2.4) Test 08/08/18 07:44 Glucose (Fingerstick) 128 mg/dL (70-99) Medications Current Medications Apixaban (Eliquis) 5 mg BID PO ; Start 08/09/18 at 09:00 Carvedilol (Coreg) 6.25 mg BIDWMEALS PO Last administered on 08/08/18at 07:51; Start 08/07/18 at 17:00 Furosemide (Lasix) 80 mg BID92 PO Last administered on 08/07/18at 14:05; Start 08/07/18 at 14:00 Atorvastatin Calcium (Lipitor) 5 mg QHS PO Last administered on 08/07/18at 20:06 ; Start 08/07/18 at 21:00 Aspirin (Ecotrin) 81 mg [id number] PO Last administered on 08/08/18at 07:50; Start 08/08/18 at 08:00 Aspirin (Ecotrin) 325 mg 1X ONCE PO Last administered on 08/07/18at 14:05; Start 08/07/18 at 14:00; Stop 08/07/18 at 14:01; Status DC Acetaminophen/ Hydrocodone Bitart (Lortab 5/325) 1 tab PRN Q6HRS PRN PO PAIN Last administered on 08/07/18at 20:42; Start 08/07/18 at 20:30 Guaifenesin (Robitussin Dm) 10 ml PRN Q6HRS PRN PO COUGH Last administered on at 20:42; Start 08/07/18 at 20:30 Iodixanol (Visipaque 320) 100 ml STK-MED ONCE .ROUTE ; Start 08/08/18 at 07:49; Stop 08/08/18 at 07:50; Status DC Lidocaine HCl (Lidocaine 1% 20ml Vial) 20 ml STK-MED ONCE .ROUTE ; Start at 07:49; Stop 08/08/18 at 07:50; Status DC Heparin Sodium/ Sodium Chloride 1,500 ml @ As Directed STK-MED ONCE .ROUTE ; Start 08/08/18 at 07:49; Stop 08/08/18 at 07:50; Status DC Fentanyl Citrate (Fentanyl 2ml Vial) 100 mcg STK-MED ONCE .ROUTE ; Start at 08:42; Stop 08/08/18 at 08:43; Status DC Midazolam HCl (Versed) 5 mg STK-MED ONCE .ROUTE ; Start 08/08/18 at 08:42; Stop 08/08/18 at 08:43; Status DC Heparin Sodium (Porcine) (Heparin Sodium) 10,000 unit STK-MED ONCE .ROUTE ; Start 08/08/18 at 08:42; Stop 08/08/18 at 08:43; Status DC Verapamil HCl (Verapamil) 5 mg STK-MED ONCE .ROUTE ; Start 08/08/18 at 08:42; Stop 08/08/18 at 08:43; Status DC Nitroglycerin (Nitroglycerin) 200 mcg STK-MED ONCE .ROUTE ; Start 08/08/18 at 08 :42; Stop 08/08/18 at 08:43; Status DC Albuterol Sulfate (Ventolin Neb Soln) 2.5 mg PRN Q4HRS PRN NEB SHORTNESS OF BREATH; Start 08/08/18 at 09:30 Guaifenesin (Robitussin Dm) 10 ml PRN Q6HRS PRN PO COUGH; Start 08/08/18 at 09: 30 Acetaminophen (Tylenol) 500 mg PRN Q6HRS PRN PO MILD PAIN / TEMP; Start at 09:30 Ondansetron HCl (Zofran) 4 mg PRN Q6HRS PRN IV NAUSEA/VOMITING; Start 08/08/18 at 09:30 Ondansetron HCl (Zofran Odt) 4 mg PRN Q6HRS PRN PO NAUSEA/VOMITING; Start 08/08 at 09:30 Nitroglycerin (Nitroglycerin) 200 mcg 1X ONCE IART Last administered on 10:17; Start 08/08/18 at 09:30; Stop 08/08/18 at 09:43; Status DC Verapamil HCl (Verapamil) 2.5 mg 1X ONCE IART Last administered on 08/08/18 10:18; Start 08/08/18 at 09:30; Stop 08/08/18 at 09:43; Status DC Heparin Sodium (Porcine) (Heparin Sodium) 2,500 unit 1X ONCE IART Last administered on 08/08/18 10:19; Start 08/08/18 at 09:30; Stop 08/08/18 at 09:43 ; Status DC Heparin Sodium/ Sodium Chloride (HEPARIN for ARTERIAL LINE FLUSH) 1,000 unit 1X ONCE IART Last administered on 08/08/18 10:16; Start 08/08/18 at 09:30; Stop 08/08/18 at 09:43; Status DC Heparin Sodium/ Sodium Chloride (HEPARIN for ARTERIAL LINE FLUSH) 1,000 unit 1X ONCE IART Last administered on 08/08/18 10:16; Start 08/08/18 at 09:30; Stop 08/08/18 at 09:43; Status DC Midazolam HCl (Versed) 5 mg 1X ONCE IV Last administered on 08/08/18 10:18; Start 08/08/18 at 09:30; Stop 08/08/18 at 09:43; Status DC Fentanyl Citrate (Fentanyl 2ml Vial) 100 mcg 1X ONCE IV Last administered on 10:18; Start 08/08/18 at 09:30; Stop 08/08/18 at 09:43; Status DC Iodixanol (Visipaque 320) 100 ml 1X ONCE IART Last administered on 08/08/18 10:17; Start 08/08/18 at 09:30; Stop 08/08/18 at 09:43; Status DC Lidocaine HCl (Lidocaine 1% 20ml Vial) 20 ml 1X ONCE INJ Last administered on 08/08/18at 10:16; Start 08/08/18 at 09:30; Stop 08/08/18 at 09:43; Status DC Info (CONTRAST GIVEN -- Rx MONITORING) 1 each PRN DAILY PRN MC SEE COMMENTS; Start 08/08/18 at 09:30; Stop 08/10/18 at 09:29 Iodixanol (Visipaque 320) 100 ml STK-MED ONCE .ROUTE ; Start 08/08/18 at 09:47; Stop 08/08/18 at 09:48; Status DC Nitroglycerin (Nitro-Bid Oint) 1 inch STK-MED ONCE .ROUTE ; Start 08/08/18 at 09 :59; Stop 08/08/18 at 10:00; Status DC Nitroglycerin (Nitro-Bid Oint) 1 inch 1X ONCE TP Last administered on at 10:00; Start 08/08/18 at 10:00; Stop 08/08/18 at 10:08; Status DC Sodium Chloride (Normal Saline Flush) 3 ml QSHIFT PRN IV AFTER MEDS AND BLOOD DRAWS; Start 08/08/18 at 10:30 Sodium Chloride 1,000 ml @ 60 mls/hr [id number] IV ; Start 08/08/18 at 10:18; Stop 08/08/18 at 14:17 Nitroglycerin (Nitrostat) 0.4 mg PRN Q5MIN PRN SL CHEST PAIN; Start 08/08/18 at 10:30 Active Scripts Active Mindy-Maureen Tablet (Folic Acid/Vitamin B Comp W-C) 0.8 Mg Tablet 1 Tab PO DAILY 30 Days Allopurinol 100 Mg Tablet 100 Mg PO DAILY Novolog Flexpen (Insulin Aspart) 100 Unit/1 Ml Insuln.pen 0 Units SQ TIDWMEALS 30 Days Levemir Flextouch (Insulin Detemir) 100 Unit/1 Ml Insuln.pen 20 Units SQ QHS 30 Days Reported Renvela (Sevelamer Carbonate) 800 Mg Tablet 3 Tab PO TID Entresto 49 mg-51 mg Tablet (Sacubitril/Valsartan) 1 Each Tablet 1 Each PO BID Lasix (Furosemide) 40 Mg Tablet 80 Mg PO BID Sensipar (Cinacalcet Hcl) 30 Mg Tablet 60 Mg PO DAILY Eliquis (Apixaban) 5 Mg Tablet 5 Mg PO BID Ferrous Sulfate 325 Mg Tablet 1 Tab PO TID Coreg (Carvedilol) 6.25 Mg Tablet 1 Tab PO BID does not take morning of dialysis Pravastatin Sodium 20 Mg Tablet 20 Mg PO DAILY Vitals/I & O Vital Sign - Last 24 Hours 08/07/18 08/07/18 08/07/18 08/07/18 13:00 13:26 14:20 16:44 Temp 97.7 97.7 Pulse 69 69 Resp 17 B/P (MAP) 131/67 (88) 131/67 Pulse Ox 93 O2 Delivery Room Air Room Air Room Air 08/07/18 08/07/18 08/07/18 08/07/18 19:25 20:00 20:42 21:42 Temp 98.0 98.0 Pulse 55 Resp 18 2 B/P (MAP) 146/63 (90) Pulse Ox 98 O2 Delivery Room Air Room Air Room Air 08/07/18 08/08/18 08/08/18 08/08/18 23:25 03:25 07:07 07:30 Temp 98.0 98.4 97.9 98.0 98.4 97.9 Pulse 63 66 71 Resp 18 18 20 B/P (MAP) 143/67 (92) 148/62 (90) 167/75 (105) Pulse Ox 95 95 95 O2 Delivery Room Air Room Air Room Air Room Air 08/08/18 08/08/18 08/08/18 08/08/18 07:51 10:00 10:14 10:18 Pulse 71 75 75 75 Resp 26 B/P (MAP) 107/75 199/76 174/67 Pulse Ox 95 O2 Delivery Nasal Cannula O2 Flow Rate 2.0 08/08/18 10:18 Resp 24 Pulse Ox 95 O2 Delivery Nasal Cannula O2 Flow Rate 2.0 Intake and Output 08/07/18 08/07/18 08/08/18 15:00 23:00 07:00 Intake Total 400 ml 800 ml Balance 400 ml 800 ml VICTOR M PINA MD Aug 08, 2018 10:47
--- NOTE | 2018-08-08 11:50 | NUR ---
Nursing: Patient transferred to unit/room 252 post cardiac cath. Oriented patient to room. Spoke with Katherine in dialysis, Katherine is to complete Vascular assessment/TR band/vital signs/post cath assessment. Patient transferred to dialysis at 1152
[2018-08-08] MEDS ORDERED: IV NORMAL SALINE 1000ML BAG 1,000 ML IV PRN ×2 (11:51)
[2018-08-08] MEDS ORDERED: DIALYSIS PATIENT. MC PRN ×2 (12:00)
--- NOTE | 2018-08-08 12:15 | PDOC2 ---
CONSULT Date of Consult Date of Consult DATE: 08/08/18 TIME: 12:11 Reason for Consult Reason for Consult: ESRD AND SOB Referring Physician Referring Physician: YOVANI Identification/Chief Complaint Chief Complaint SOB Source Source: Chart review, Patient History of Present Illness Reason for Visit: THIS IS A 72 WITH SOB AND EDEMA. NOTED TO HAVE ESRD AND IS ON OP HD ON MWF. HAS HAD RECURRENT PROBLEMS WITH THIS. HE HAS UNDERGONE A LHC THIS AM AND RESULTS ARE PENDING. LABS ARE C/W HIS ESRD STATUS. Past Medical History Cardiovascular: AFIB, CHF, HTN, Hyperlipidemia Pulmonary: Pneumonia CENTRAL NERVOUS SYSTEM: CVA GI: No pertinent hx Heme/Onc: Anemia NOS Psych: No pertinent hx Musculoskeletal: Osteoarthritis Rheumatologic: No pertinent hx, Gout Infectious disease: No pertinent hx Renal/: Chronic renal failure, Renal Ca. Endocrine: Diabetes Past Surgical History Past Surgical History: Other Family History Family History: Diabetes, Heart Disease, Hypertension Social History No ALCOHOL: none Drugs: None Lives: with Family Current Medications Current Medications Current Medications Apixaban (Eliquis) 5 mg BID PO ; Start 08/09/18 at 09:00 Carvedilol (Coreg) 6.25 mg BIDWMEALS PO Last administered on 08/08/18at 07:51; Start 08/07/18 at 17:00 Furosemide (Lasix) 80 mg BID92 PO Last administered on 08/07/18at 14:05; Start 08/07/18 at 14:00 Atorvastatin Calcium (Lipitor) 5 mg QHS PO Last administered on 08/07/18at 20:06 ; Start 08/07/18 at 21:00 Aspirin (Ecotrin) 81 mg [id number] PO Last administered on 08/08/18at 07:50; Start 08/08/18 at 08:00 Aspirin (Ecotrin) 325 mg 1X ONCE PO Last administered on 08/07/18at 14:05; Start 08/07/18 at 14:00; Stop 08/07/18 at 14:01; Status DC Acetaminophen/ Hydrocodone Bitart (Lortab 5/325) 1 tab PRN Q6HRS PRN PO PAIN Last administered on 08/07/18at 20:42; Start 08/07/18 at 20:30 Guaifenesin (Robitussin Dm) 10 ml PRN Q6HRS PRN PO COUGH Last administered on at 20:42; Start 08/07/18 at 20:30; Stop 08/08/18 at 12:03; Status DC Iodixanol (Visipaque 320) 100 ml STK-MED ONCE .ROUTE ; Start 08/08/18 at 07:49; Stop 08/08/18 at 07:50; Status DC Lidocaine HCl (Lidocaine 1% 20ml Vial) 20 ml STK-MED ONCE .ROUTE ; Start at 07:49; Stop 08/08/18 at 07:50; Status DC Heparin Sodium/ Sodium Chloride 1,500 ml @ As Directed STK-MED ONCE .ROUTE ; Start 08/08/18 at 07:49; Stop 08/08/18 at 07:50; Status DC Fentanyl Citrate (Fentanyl 2ml Vial) 100 mcg STK-MED ONCE .ROUTE ; Start at 08:42; Stop 08/08/18 at 08:43; Status DC Midazolam HCl (Versed) 5 mg STK-MED ONCE .ROUTE ; Start 08/08/18 at 08:42; Stop 08/08/18 at 08:43; Status DC Heparin Sodium (Porcine) (Heparin Sodium) 10,000 unit STK-MED ONCE .ROUTE ; Start 08/08/18 at 08:42; Stop 08/08/18 at 08:43; Status DC Verapamil HCl (Verapamil) 5 mg STK-MED ONCE .ROUTE ; Start 08/08/18 at 08:42; Stop 08/08/18 at 08:43; Status DC Nitroglycerin (Nitroglycerin) 200 mcg STK-MED ONCE .ROUTE ; Start 08/08/18 at 08 :42; Stop 08/08/18 at 08:43; Status DC Albuterol Sulfate (Ventolin Neb Soln) 2.5 mg PRN Q4HRS PRN NEB SHORTNESS OF BREATH; Start 08/08/18 at 09:30 Guaifenesin (Robitussin Dm) 10 ml PRN Q6HRS PRN PO COUGH; Start 08/08/18 at 09: 30 Acetaminophen (Tylenol) 500 mg PRN Q6HRS PRN PO MILD PAIN / TEMP; Start at 09:30 Ondansetron HCl (Zofran) 4 mg PRN Q6HRS PRN IV NAUSEA/VOMITING; Start 08/08/18 at 09:30 Ondansetron HCl (Zofran Odt) 4 mg PRN Q6HRS PRN PO NAUSEA/VOMITING; Start 08/08 at 09:30 Nitroglycerin (Nitroglycerin) 200 mcg 1X ONCE IART Last administered on 10:17; Start 08/08/18 at 09:30; Stop 08/08/18 at 09:43; Status DC Verapamil HCl (Verapamil) 2.5 mg 1X ONCE IART Last administered on 08/08/18 10:18; Start 08/08/18 at 09:30; Stop 08/08/18 at 09:43; Status DC Heparin Sodium (Porcine) (Heparin Sodium) 2,500 unit 1X ONCE IART Last administered on 08/08/18 10:19; Start 08/08/18 at 09:30; Stop 08/08/18 at 09:43 ; Status DC Heparin Sodium/ Sodium Chloride (HEPARIN for ARTERIAL LINE FLUSH) 1,000 unit 1X ONCE IART Last administered on 08/08/18 10:16; Start 08/08/18 at 09:30; Stop 08/08/18 at 09:43; Status DC Heparin Sodium/ Sodium Chloride (HEPARIN for ARTERIAL LINE FLUSH) 1,000 unit 1X ONCE IART Last administered on 08/08/18 10:16; Start 08/08/18 at 09:30; Stop 08/08/18 at 09:43; Status DC Midazolam HCl (Versed) 5 mg 1X ONCE IV Last administered on 08/08/18 10:18; Start 08/08/18 at 09:30; Stop 08/08/18 at 09:43; Status DC Fentanyl Citrate (Fentanyl 2ml Vial) 100 mcg 1X ONCE IV Last administered on 10:18; Start 08/08/18 at 09:30; Stop 08/08/18 at 09:43; Status DC Iodixanol (Visipaque 320) 100 ml 1X ONCE IART Last administered on 08/08/18 10:17; Start 08/08/18 at 09:30; Stop 08/08/18 at 09:43; Status DC Lidocaine HCl (Lidocaine 1% 20ml Vial) 20 ml 1X ONCE INJ Last administered on 08/08/18 10:16; Start 08/08/18 at 09:30; Stop 08/08/18 at 09:43; Status DC Info (CONTRAST GIVEN -- Rx MONITORING) 1 each PRN DAILY PRN MC SEE COMMENTS; Start 08/08/18 at 09:30; Stop 08/10/18 at 09:29 Iodixanol (Visipaque 320) 100 ml STK-MED ONCE .ROUTE ; Start 08/08/18 at 09:47; Stop 08/08/18 at 09:48; Status DC Nitroglycerin (Nitro-Bid Oint) 1 inch STK-MED ONCE .ROUTE ; Start 08/08/18 at 09 :59; Stop 08/08/18 at 10:00; Status DC Nitroglycerin (Nitro-Bid Oint) 1 inch 1X ONCE TP Last administered on at 10:00; Start 08/08/18 at 10:00; Stop 08/08/18 at 10:08; Status DC Sodium Chloride (Normal Saline Flush) 3 ml QSHIFT PRN IV AFTER MEDS AND BLOOD DRAWS; Start 08/08/18 at 10:30 Sodium Chloride 1,000 ml @ 60 mls/hr [id number] IV ; Start 08/08/18 at 10:18; Stop 08/08/18 at 14:17 Nitroglycerin (Nitrostat) 0.4 mg PRN Q5MIN PRN SL CHEST PAIN; Start 08/08/18 at 10:30 Sodium Chloride 1,000 ml @ 1,000 mls/hr Q1H PRN IV hypotension; Start 08/08/18 at 11:51; Stop 08/08/18 at 17:50 Sodium Chloride 1,000 ml @ 400 mls/hr Q2H30M PRN IV PATENCY; Start 08/08/18 at 11:51; Stop 08/08/18 at 23:50 Info (PHARMACY MONITORING -- do not chart) 1 each PRN DAILY PRN MC SEE COMMENTS ; Start 08/08/18 at 12:00; Status UNV Info (PHARMACY MONITORING -- do not chart) 1 each PRN DAILY PRN MC SEE COMMENTS ; Start 08/08/18 at 12:00 Info (Anti-Coagulation Monitoring By Pharmacy) 1 each PRN DAILY PRN MC SEE COMMENTS; Start 08/08/18 at 12:15 Active Scripts Active Mindy-Maureen Tablet (Folic Acid/Vitamin B Comp W-C) 0.8 Mg Tablet 1 Tab PO DAILY 30 Days Allopurinol 100 Mg Tablet 100 Mg PO DAILY Novolog Flexpen (Insulin Aspart) 100 Unit/1 Ml Insuln.pen 0 Units SQ TIDWMEALS 30 Days Levemir Flextouch (Insulin Detemir) 100 Unit/1 Ml Insuln.pen 20 Units SQ QHS 30 Days Reported Renvela (Sevelamer Carbonate) 800 Mg Tablet 3 Tab PO TID Entresto 49 mg-51 mg Tablet (Sacubitril/Valsartan) 1 Each Tablet 1 Each PO BID Lasix (Furosemide) 40 Mg Tablet 80 Mg PO BID Sensipar (Cinacalcet Hcl) 30 Mg Tablet 60 Mg PO DAILY Eliquis (Apixaban) 5 Mg Tablet 5 Mg PO BID Ferrous Sulfate 325 Mg Tablet 1 Tab PO TID Coreg (Carvedilol) 6.25 Mg Tablet 1 Tab PO BID does not take morning of dialysis Pravastatin Sodium 20 Mg Tablet 20 Mg PO DAILY Allergies Allergies: Coded Allergies: nut - unspecified (Verified Allergy, Intermediate, 01/13/18) lisinopril (Verified Adverse Reaction, Intermediate, Cough, 12/27/16) ROS General: YES: Fatigue, Appetite PSYCHOLOGICAL ROS: YES: Anxiety Eyes: Yes Decreased vision HEENT: YES: Heacaches Respiratory: YES: Cough, Orthopnea, Shortness of breath Cardiovascular: yes Orthopnea Gastrointestinal: Yes Constipation Genitourinary: YES Other (NOCTURIA) Musculoskeletal: Yes Muscular Weakness Neurological: Yes Weakness Skin: Yes Dry Skin Physical Exam General: Alert, Oriented X3, Cooperative, mild distress HEENT: Atraumatic, PERRLA Lungs: Other (DECREASED AT BASES) Heart: Regular rate, Other (2+) Abdomen: Normal bowel sounds, Soft, No tenderness Extremities: No clubbing Skin: No breakdown Neuro: Normal speech, Sensation intact Psych/Mental Status: Mental status NL, Mood NL MUSCULOSKELETAL: No joint tenderness, No deformity Vitals VITALS Vital Signs Date Time Temp Pulse Resp B/P (MAP) Pulse Ox O2 Delivery O2 Flow Rate FiO2 08/08/18 11:45 72 192/78 (116) 08/08/18 11:11 97.6 19 94 Nasal Cannula 2.0 97.6 Labs Labs Laboratory Tests Test 08/07/18 14:00 08/07/18 16:44 08/07/18 20:25 08/08/18 04:35 Troponin I Quantitative 0.030 ng/mL (0.000-0.055) Influenza Type A Antigen Negative (NEGATIVE) Influenza Type B Antigen Negative (NEGATIVE) Glucose (Fingerstick) 106 mg/dL (70-99) 186 mg/dL (70-99) White Blood Count 8.6 x10^3/uL (4.0-11.0) Red Blood Count 2.67 x10^6/uL (4.30-5.70) Hemoglobin 9.0 g/dL (13.0-17.5) Hematocrit 26.9 % (39.0-53.0) Mean Corpuscular Volume 101 fL (79-100) Mean Corpuscular Hemoglobin 34 pg (25-35) Mean Corpuscular Hemoglobin Concent 33 g/dL (31-37) Red Cell Distribution Width 14.0 % (11.5-14.5) Platelet Count 166 x10^3/uL (140-400) Neutrophils (%) (Auto) 78 % (31-73) Lymphocytes (%) (Auto) 11 % (24-48) Monocytes (%) (Auto) 8 % (0-9) Eosinophils (%) (Auto) 3 % (0-3) Basophils (%) (Auto) 1 % (0-3) Neutrophils # (Auto) 6.7 x10^3uL (1.8-7.7) Lymphocytes # (Auto) 0.9 x10^3/uL (1.0-4.8) Monocytes # (Auto) 0.7 x10^3/uL (0.0-1.1) Eosinophils # (Auto) 0.2 x10^3/uL (0.0-0.7) Basophils # (Auto) 0.0 x10^3/uL (0.0-0.2) Prothrombin Time 16.7 SEC (11.7-14.0) Prothromb Time International Ratio 1.4 (0.8-1.1) Sodium Level 142 mmol/L (136-145) Potassium Level 4.2 mmol/L (3.5-5.1) Chloride Level 102 mmol/L (98-107) Carbon Dioxide Level 27 mmol/L (21-32) Anion Gap 13 (6-14) Blood Urea Nitrogen 47 mg/dL (8-26) Creatinine 6.4 mg/dL (0.7-1.3) Estimated GFR (Cockcroft-Gault) 8.6 Glucose Level 130 mg/dL (70-99) Calcium Level 8.5 mg/dL (8.5-10.1) Magnesium Level 2.0 mg/dL (1.8-2.4) Test 08/08/18 07:44 08/08/18 11:26 Glucose (Fingerstick) 128 mg/dL (70-99) 120 mg/dL (70-99) Laboratory Tests Test 08/07/18 14:00 08/07/18 16:44 08/07/18 20:25 08/08/18 04:35 Troponin I Quantitative 0.030 ng/mL (0.000-0.055) Influenza Type A Antigen Negative (NEGATIVE) Influenza Type B Antigen Negative (NEGATIVE) Glucose (Fingerstick) 106 mg/dL (70-99) 186 mg/dL (70-99) White Blood Count 8.6 x10^3/uL (4.0-11.0) Red Blood Count 2.67 x10^6/uL (4.30-5.70) Hemoglobin 9.0 g/dL (13.0-17.5) Hematocrit 26.9 % (39.0-53.0) Mean Corpuscular Volume 101 fL (79-100) Mean Corpuscular Hemoglobin 34 pg (25-35) Mean Corpuscular Hemoglobin Concent 33 g/dL (31-37) Red Cell Distribution Width 14.0 % (11.5-14.5) Platelet Count 166 x10^3/uL (140-400) Neutrophils (%) (Auto) 78 % (31-73) Lymphocytes (%) (Auto) 11 % (24-48) Monocytes (%) (Auto) 8 % (0-9) Eosinophils (%) (Auto) 3 % (0-3) Basophils (%) (Auto) 1 % (0-3) Neutrophils # (Auto) 6.7 x10^3uL (1.8-7.7) Lymphocytes # (Auto) 0.9 x10^3/uL (1.0-4.8) Monocytes # (Auto) 0.7 x10^3/uL (0.0-1.1) Eosinophils # (Auto) 0.2 x10^3/uL (0.0-0.7) Basophils # (Auto) 0.0 x10^3/uL (0.0-0.2) Prothrombin Time 16.7 SEC (11.7-14.0) Prothromb Time International Ratio 1.4 (0.8-1.1) Sodium Level 142 mmol/L (136-145) Potassium Level 4.2 mmol/L (3.5-5.1) Chloride Level 102 mmol/L (98-107) Carbon Dioxide Level 27 mmol/L (21-32) Anion Gap 13 (6-14) Blood Urea Nitrogen 47 mg/dL (8-26) Creatinine 6.4 mg/dL (0.7-1.3) Estimated GFR (Cockcroft-Gault) 8.6 Glucose Level 130 mg/dL (70-99) Calcium Level 8.5 mg/dL (8.5-10.1) Magnesium Level 2.0 mg/dL (1.8-2.4) Test 08/08/18 07:44 08/08/18 11:26 Glucose (Fingerstick) 128 mg/dL (70-99) 120 mg/dL (70-99) Assessment/Plan Assessment/Plan IMP CHF-PROB 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
--- NOTE | 2018-08-08 12:55 | CARD ---
MR#: [id number] Date of Study: 08/08/2018 Ordering Physician: GIL PAGAN, Referring Physician: Aron MAHAJAN: RT Minnie (R) APPROVED REPORT Procedures Left heart catheterization Selective coronary angiogram IFR measurement of the left circumflex vessel. The patient is a 72-year-old male with recurrent episodes of heart failure and mild chest pressure. Jamie sousa has known coronary artery disease. He was readmitted for another episode of shortness of breath and chest pressure. Heart catheterization was recommended to exclude a significant coronary lesion and m easurement of his LVEDP. Risks and benefits were discussed with the patient. He agreed to proceed. After informed consent was obtained the patient was brought to the heart catheterization lab. The ar ea of the right radial artery was prepared in the usual manner with Betadine, sterile draping and lo valentín anesthetic after an acceptable Braeden's test. A Quick catheter device was used to enter the right radial artery, a wire placed and a 6 Vincentian sheath placed over the wire. The standard mixture of hep eve and antispasm medications was administered through the sheath. With the use of a glide extra-sup port wire a 6 Vincentian JL4 diagnostic catheter was advanced to the ascending aorta. It was used to enga ge the left system and sequential injections in various views were obtained. Using an over the wire e xchange a 6 Vincentian JR4 diagnostic catheter was advanced to the ascending aorta. It was passed to the left ventricle and pressures were obtained. Pullback pressures were also obtained. It was then used t o engage the right coronary artery and sequential injections in various views were obtained. In [facility] the pictures patient had a left circumflex obtuse marginal one lesion in the 50% range. However it was somewhat eccentric and with his recurrent chest pressure we proceeded to perform an IFR measur ement. A 6 Vincentian XB 3.5 guide was used to engage the left system after one thousand units of heparin were administered. With standard techniques a pressure wire was placed. Measurements were normal wit h a IFR 0.94. The wire and catheter were removed. The sheath was removed and sealed with a TR band. T he patient was then moved to the holding area in stable condition. Findings. Hemodynamics. LV pressure of 1:30/15, 24. Aortic root pressure 126/68. Coronaries. Left main. The left main was a moderately large vessel. It had no lesions. Left anterior descending. The LAD was a moderate to moderately large vessel with normal distribution. It had a mid lesion in the 25% range. A second diagonal branch had an ostial 40% lesion. Left circumflex. The left circumflex was a moderate size vessel. It a proximal 20% lesion. A large ob tuse marginal 1 branch had a 50% lesion which was eccentric. IFR measurement of this lesion was john l at 0.94. Right coronary artery. The right coronary was a moderate size vessel. Had a proximal 30% lesion and a mid 30% lesion. <Conclusion> Moderate three-vessel coronary disease with no hemodynamically significant lesions. Normal IFR measurement of a obtuse marginal 1 lesion. Elevated left ventricular end-diastolic pressure. Signed by : Gil Pagan MD Electronically Approved : 08/08/2018 12:55:19
--- NOTE | 2018-08-08 14:59 | NUR ---
SS following for discharge planning. SS reviewed pt chart. Pt is from home with spouse and currently has dialysis chair time in the community on Saturday, Saturday, and Saturday. Pt has had previous services with [facility], ; fax [phone]. SS will continue to follow for discharge planning.
[2018-08-08] MEDS ORDERED: hydrALAZINE 20 MG/ML VIAL. IVP PRN (17:45)
[2018-08-08] MEDS: amLODIPine BESYLATE 5 MG TABLET PO SCH (18:04)
[2018-08-08] MEDS: ATORVASTATIN CALCIUM 10 MG TABLET. PO SCH (20:04)
[2018-08-08] MEDS: guaiFENesin DM 200MG/20MG 10 ML SYRUP PO PRN (20:04)
[2018-08-09 03:45] VITALS: BP 143/66
[2018-08-09 05:56] LABS: HEMATOCRIT 24.1 % (39.0-53.0); RED BLOOD COUNT 2.41 x10^6/uL (4.30-5.70); RED CELL DISTRIBUTION WIDTH 14.3 % (11.5-14.5); WHITE BLOOD COUNT 9.9 x10^3/uL (4.0-11.0)
[2018-08-09 06:38] LABS: CALCIUM 8.6 mg/dL (8.5-10.1); CREATININE 4.5 mg/dL (0.7-1.3); POTASSIUM 3.8 mmol/L (3.5-5.1)
[2018-08-09 07:00] VITALS: BP 142/57
[2018-08-09] MEDS: ASPIRIN ENTERIC COATED 81 MG TABLET.DR. PO SCH (08:58)
[2018-08-09] MEDS: CARVEDILOL 6.25 MG TABLET. PO SCH ×2 (08:58→17:34)
[2018-08-09] MEDS: FUROSEMIDE 40 MG TABLET. PO SCH ×2 (08:58→14:42)
[2018-08-09] MEDS: APIXABAN 5 MG TABLET. PO SCH ×2 (08:58→20:22)
[2018-08-09] MEDS: guaiFENesin DM 200MG/20MG 10 ML SYRUP PO PRN ×2 (08:59→20:22)
[2018-08-09] MEDS: amLODIPine BESYLATE 5 MG TABLET PO SCH (08:59)
--- NOTE | 2018-08-09 10:52 | PDOC ---
PROGRESS NOTES Chief Complaint Chief Complaint 1. Acute on chronic systolic CHF: recurrent despite HD with recent LVEF 35-40% , possibly ischemic induced 2. Hypertension: controlled 3. Hyperlipidemia; lipids on goal 4. Diabetes, II; as per PCP 5. Chronic RLE wound; followed by wound care clinic. No significant LE PAD per recent sono 6. ESRD on HD; MWF 7. Anemia of chronic disease 8. Chronic AFIB; rate controlled. on Eliquis for stroke prevention 9. H/o CVA 10. CAD; noted 50% OM lesion on [facility] 03/2017 cath 08/08 Moderate three-vessel coronary disease with no hemodynamically significant lesions. Normal IFR measurement of a obtuse marginal 1 lesion. Elevated left ventricular end-diastolic pressure. The systolic function is moderately impaired. EF 35-40%. There is global hypokinesis of the left ventricle. The right ventricle is mildly to moderately dilated. Doppler and Color Flow revealed mild tricuspid regurgitation with an estimated PAP of 40 mmHg. History of Present Illness History of Present Illness On Eliquis and aspirin and Lasix Blood pressure on the high side, readmission CHF 07/31/18, recent [facility] admit too/work up - planned for MPI apparently BNP 3540 Creatinine 6.9 dialysis patient Plan:cath BP regimen adjustment defer to cards ELytes whil on lasix (so far on PO lasix) 74 MIN PT EXAM, CHART REVIEW, > 50% of time with exam, chart review, pt care coordination Vitals Vitals Vital Signs Date Time Temp Pulse Resp B/P (MAP) Pulse Ox O2 Delivery O2 Flow Rate FiO2 08/09/18 08:59 75 08/09/18 08:00 Room Air 08/09/18 07:00 99.3 18 142/57 (85) 99 3.0 99.3 Physical Exam General: Alert, Oriented X3, Cooperative, mild distress Heart: Regular rate, Other (2+) Lungs: Clear Abdomen: Normal bowel sounds, Soft, No tenderness Extremities: No clubbing Skin: No breakdown Labs LABS TDI E/Lateral E' 10.3 E/Medial E' 11.9 Pulmonary Valve PV Peak Velocity 110.0cm/s PV Peak Grad. 5mmHg Tricuspid Valve TR P. Velocity 262cm/s RAP ESTIMATE 8mmHg TR Peak Gr. 32mmHg RVSP 40mmHg Pulmonary Vein S1 Velocity 24.4cm/s D2 Velocity 43.0cm/s LEFT VENTRICLE The Left Ventricle is moderately dilated. There is borderline concentric left ventricular hypertrophy. The systolic function is moderately impaired. EF 35-40% . There is global hypokinesis of the left ventricle. Tissue Doppler imaging reveals moderate left ventricular diastolic dysfunction. RIGHT VENTRICLE The right ventricle is mildly to moderately dilated. The right ventricle is borderline hypertrophied. RV Systolic function is borderline reduced. ATRIA The left atrium is mildly dilated. The right atrium is severely dilated. The interatrial septum is intact with no evidence for an atrial septal defect or patent foramen ovale as noted on 2-D or Doppler imaging. AORTIC VALVE The aortic valve is calcified with restricted LCC. Doppler and Color Flow revealed no significant aortic regurgitation. There is no significant aortic valvular stenosis. MITRAL VALVE The mitral valve is thickened but opens well. There is no evidence of mitral valve prolapse. There is no mitral valve stenosis. Doppler and Color-flow revealed mild mitral regurgitation. TRICUSPID VALVE The tricuspid valve is normal in structure and function. Doppler and Color Flow revealed mild tricuspid regurgitation with an estimated PAP of 40 mmHg. There is no tricuspid valve stenosis. PULMONIC VALVE The pulmonic valve is not well visualized. Doppler and Color Flow revealed mild pulmonic valvular regurgitation. There is no pulmonic valvular stenosis. GREAT VESSELS The aortic root is normal in size. The IVC is dilated and collapses >50% with inspiration. PERICARDIAL EFFUSION There is no evidence of significant pericardial effusion. Critical Notification Critical Value: No <Conclusion> The systolic function is moderately impaired. EF 35-40%. There is global hypokinesis of the left ventricle. The right ventricle is mildly to moderately dilated. Doppler and Color Flow revealed mild tricuspid regurgitation with an estimated PAP of 40 mmHg. Doppler and Color Flow revealed mild pulmonic valvular regurgitation. Signed by : Opal Romano, Electronically Approved : 07/29/2018 11:09:58 COMPARISON: CT chest from 03/03/2005 TECHNIQUE: Axial CT images of the chest abdomen pelvis were performed without contrast. Coronal and sagittal reformats are performed Exposure: One or more of the following individualized dose reduction techniques were utilized for this examination: 1. Automated exposure control 2. Adjustment of the mA and/or kV according to patient size 3. Use of iterative reconstruction technique FINDINGS: The central airways are patent. Small subcentimeter mediastinal lymph nodes identified with the largest measuring 9 mm in the pretracheal region. Mild cardiomegaly. Coronary artery calcifications. There is a 4 mm nodule identified in the left lingula of the lung. No evidence of pleural effusion or pneumothorax. Mild left lung base airspace opacity likely atelectasis or infiltrate. The visualized noncontrasted liver, adrenals grossly appears unremarkable. Calcified granulomas identified in the spleen. The gallbladder is mildly distended probable tiny gallstone or polyp measuring 3 mm identified in the gallbladder. The stomach is mildly distended. The visualized pancreas grossly appears unremarkable. The small bowel is nondilated. Appendix is normal. Feces and gas noted in the colon. Few sigmoid colon diverticulosis. Minimal amount of fluid identified in the pelvis. Urinary bladder is mildly distended. The left kidney is not identified. Multiple cystic structures identified in the right kidney the largest measuring 9 mm. Moderate aortic atherosclerosis. Severe degenerative changes thoracic and lumbar spine. IMPRESSION: 1. Mild left lung base airspace opacities likely atelectasis or infiltrate. 2. Absent left kidney. 3. Mild sigmoid colon diverticulosis. Minimal amount of free fluid identified in the pelvis, nonspecific. 4. Cystic structure identified in the right kidney could be cysts or cystic lesions. 5. Tiny 3 mm density identified in the gallbladder could be polyp or stone. 6. 4 mm nodule identified in the left lingula. Follow-up effusions articulates with follow-up CT chest in 6 months. Electronically signed by: William Roberts MD (01/12/2018 6:42 PM) [facility] DICTATED and SIGNED BY: WILLIAM ROBERTS MD DATE: 01/12/18 1833 APPROVED REPORT Patient Location: IN-PATIENT Indications Non-healing Ulcer: Right VELOCITY AND DOPPLER WAVEFORM ANALYSIS RIGHT cm/sec Waveform Severity LEFT cm/sec Waveform Severity dCFA 100.0 Biphasic dCFA Prof Fem Art. 79.0 Biphasic Prof Fem Art. Fem Art Prox. 108.0 Biphasic Fem Art Prox. Fem Art Mid. 102.0 Biphasic Fem Art Mid. Fem Art Dist. 56.0 Biphasic Fem Art Dist. Pop Art(Fossa) 64.0 Biphasic Pop Art(AK) GROOVER AND TURNER Prox. 32.0 Biphasic GROOVER AND TURNER Prox. GROOVER AND TURNER Dist. 76.0 Biphasic GROOVER AND TURNER Dist. Per Art Mid. 44.0 Biphasic Per Art Mid. MARCO Prox. 62.0 Biphasic MARCO Prox. DPA 65 Monophasic DPA Image Findings Grayscale images of the right lower extremity arterial vessels do not reveal any significant obstructive disease. Spectral waveforms are mostly biphasic and within normal limits. No high flow velocities are noted. No significant stenosis by velocity criteria. There is three-vessel runoff below the knee. Critical Notification Critical Value: No <Conclusion> No significant right lower extremity arterial disease. Signed by : Opal Romano, Electronically Approved : 07/29/2018 10:02:47 DICTATED and SIGNED BY: OPAL ROMANO MD DATE: 07/29/18 1002 Laboratory Tests Test 08/08/18 11:26 08/08/18 17:02 08/08/18 20:40 08/09/18 04:45 Glucose (Fingerstick) 120 mg/dL (70-99) 99 mg/dL (70-99) 193 mg/dL (70-99) White Blood Count 9.9 x10^3/uL (4.0-11.0) Red Blood Count 2.41 x10^6/uL (4.30-5.70) Hemoglobin 8.0 g/dL (13.0-17.5) Hematocrit 24.1 % (39.0-53.0) Mean Corpuscular Volume 100 fL (79-100) Mean Corpuscular Hemoglobin 33 pg (25-35) Mean Corpuscular Hemoglobin Concent 33 g/dL (31-37) Red Cell Distribution Width 14.3 % (11.5-14.5) Platelet Count 158 x10^3/uL (140-400) Sodium Level 137 mmol/L (136-145) Potassium Level 3.8 mmol/L (3.5-5.1) Chloride Level 98 mmol/L (98-107) Carbon Dioxide Level 30 mmol/L (21-32) Anion Gap 9 (6-14) Blood Urea Nitrogen 28 mg/dL (8-26) Creatinine 4.5 mg/dL (0.7-1.3) Estimated GFR (Cockcroft-Gault) 13.0 Glucose Level 143 mg/dL (70-99) Calcium Level 8.6 mg/dL (8.5-10.1) Test 08/09/18 07:43 Glucose (Fingerstick) 138 mg/dL (70-99) Assessment and Plan Assessmemt and Plan problems CHF-ACUTE ON CHRONIC SYSTOLIC AND DIASTOLIC CM //EF OF 35% DM II HTN ANEMIA ESRD AFIB Comment Review of Relevant I have reviewed the following items jennifer (where applicable) has been applied. Labs Laboratory Tests Test 08/07/18 14:00 08/07/18 16:44 08/07/18 20:25 08/08/18 04:35 Troponin I Quantitative 0.030 ng/mL (0.000-0.055) Influenza Type A Antigen Negative (NEGATIVE) Influenza Type B Antigen Negative (NEGATIVE) Glucose (Fingerstick) 106 mg/dL (70-99) 186 mg/dL (70-99) White Blood Count 8.6 x10^3/uL (4.0-11.0) Red Blood Count 2.67 x10^6/uL (4.30-5.70) Hemoglobin 9.0 g/dL (13.0-17.5) Hematocrit 26.9 % (39.0-53.0) Mean Corpuscular Volume 101 fL (79-100) Mean Corpuscular Hemoglobin 34 pg (25-35) Mean Corpuscular Hemoglobin Concent 33 g/dL (31-37) Red Cell Distribution Width 14.0 % (11.5-14.5) Platelet Count 166 x10^3/uL (140-400) Neutrophils (%) (Auto) 78 % (31-73) Lymphocytes (%) (Auto) 11 % (24-48) Monocytes (%) (Auto) 8 % (0-9) Eosinophils (%) (Auto) 3 % (0-3) Basophils (%) (Auto) 1 % (0-3) Neutrophils # (Auto) 6.7 x10^3uL (1.8-7.7) Lymphocytes # (Auto) 0.9 x10^3/uL (1.0-4.8) Monocytes # (Auto) 0.7 x10^3/uL (0.0-1.1) Eosinophils # (Auto) 0.2 x10^3/uL (0.0-0.7) Basophils # (Auto) 0.0 x10^3/uL (0.0-0.2) Prothrombin Time 16.7 SEC (11.7-14.0) Prothromb Time International Ratio 1.4 (0.8-1.1) Sodium Level 142 mmol/L (136-145) Potassium Level 4.2 mmol/L (3.5-5.1) Chloride Level 102 mmol/L (98-107) Carbon Dioxide Level 27 mmol/L (21-32) Anion Gap 13 (6-14) Blood Urea Nitrogen 47 mg/dL (8-26) Creatinine 6.4 mg/dL (0.7-1.3) Estimated GFR (Cockcroft-Gault) 8.6 Glucose Level 130 mg/dL (70-99) Calcium Level 8.5 mg/dL (8.5-10.1) Magnesium Level 2.0 mg/dL (1.8-2.4) Test 08/08/18 07:44 08/08/18 11:26 08/08/18 17:02 08/08/18 20:40 Glucose (Fingerstick) 128 mg/dL (70-99) 120 mg/dL (70-99) 99 mg/dL (70-99) 193 mg/dL (70-99) Test 08/09/18 04:45 08/09/18 07:43 White Blood Count 9.9 x10^3/uL (4.0-11.0) Red Blood Count 2.41 x10^6/uL (4.30-5.70) Hemoglobin 8.0 g/dL (13.0-17.5) Hematocrit 24.1 % (39.0-53.0) Mean Corpuscular Volume 100 fL (79-100) Mean Corpuscular Hemoglobin 33 pg (25-35) Mean Corpuscular Hemoglobin Concent 33 g/dL (31-37) Red Cell Distribution Width 14.3 % (11.5-14.5) Platelet Count 158 x10^3/uL (140-400) Sodium Level 137 mmol/L (136-145) Potassium Level 3.8 mmol/L (3.5-5.1) Chloride Level 98 mmol/L (98-107) Carbon Dioxide Level 30 mmol/L (21-32) Anion Gap 9 (6-14) Blood Urea Nitrogen 28 mg/dL (8-26) Creatinine 4.5 mg/dL (0.7-1.3) Estimated GFR (Cockcroft-Gault) 13.0 Glucose Level 143 mg/dL (70-99) Calcium Level 8.6 mg/dL (8.5-10.1) Glucose (Fingerstick) 138 mg/dL (70-99) Laboratory Tests Test 08/08/18 11:26 08/08/18 17:02 08/08/18 20:40 08/09/18 04:45 Glucose (Fingerstick) 120 mg/dL (70-99) 99 mg/dL (70-99) 193 mg/dL (70-99) White Blood Count 9.9 x10^3/uL (4.0-11.0) Red Blood Count 2.41 x10^6/uL (4.30-5.70) Hemoglobin 8.0 g/dL (13.0-17.5) Hematocrit 24.1 % (39.0-53.0) Mean Corpuscular Volume 100 fL (79-100) Mean Corpuscular Hemoglobin 33 pg (25-35) Mean Corpuscular Hemoglobin Concent 33 g/dL (31-37) Red Cell Distribution Width 14.3 % (11.5-14.5) Platelet Count 158 x10^3/uL (140-400) Sodium Level 137 mmol/L (136-145) Potassium Level 3.8 mmol/L (3.5-5.1) Chloride Level 98 mmol/L (98-107) Carbon Dioxide Level 30 mmol/L (21-32) Anion Gap 9 (6-14) Blood Urea Nitrogen 28 mg/dL (8-26) Creatinine 4.5 mg/dL (0.7-1.3) Estimated GFR (Cockcroft-Gault) 13.0 Glucose Level 143 mg/dL (70-99) Calcium Level 8.6 mg/dL (8.5-10.1) Test 08/09/18 07:43 Glucose (Fingerstick) 138 mg/dL (70-99) Medications Current Medications Apixaban (Eliquis) 5 mg BID PO Last administered on 08/09/18at 08:58; Start at 09:00 Carvedilol (Coreg) 6.25 mg BIDWMEALS PO Last administered on 08/09/18at 08:58; Start 08/07/18 at 17:00 Furosemide (Lasix) 80 mg [id number] PO Last administered on 08/09/18 08:58; Start 08/07/18 at 14:00 Atorvastatin Calcium (Lipitor) 5 mg QHS PO Last administered on 08/08/18 20:04 ; Start 08/07/18 at 21:00 Aspirin (Ecotrin) 81 mg [id number] PO Last administered on 08/09/18 08:58; Start 08/08/18 at 08:00 Aspirin (Ecotrin) 325 mg 1X ONCE PO Last administered on 08/07/18 14:05; Start 08/07/18 at 14:00; Stop 08/07/18 at 14:01; Status DC Acetaminophen/ Hydrocodone Bitart (Lortab 5/325) 1 tab PRN Q6HRS PRN PO MODERATE - SEVERE PAIN Last administered on 08/07/18 20:42; Start 08/07/18 at 20:30 Guaifenesin (Robitussin Dm) 10 ml PRN Q6HRS PRN PO COUGH Last administered on 20:42; Start 08/07/18 at 20:30; Stop 08/08/18 at 12:03; Status DC Iodixanol (Visipaque 320) 100 ml STK-MED ONCE .ROUTE ; Start 08/08/18 at 07:49; Stop 08/08/18 at 07:50; Status DC Lidocaine HCl (Lidocaine 1% 20ml Vial) 20 ml STK-MED ONCE .ROUTE ; Start at 07:49; Stop 08/08/18 at 07:50; Status DC Heparin Sodium/ Sodium Chloride 1,500 ml @ As Directed STK-MED ONCE .ROUTE ; Start 08/08/18 at 07:49; Stop 08/08/18 at 07:50; Status DC Fentanyl Citrate (Fentanyl 2ml Vial) 100 mcg STK-MED ONCE .ROUTE ; Start at 08:42; Stop 08/08/18 at 08:43; Status DC Midazolam HCl (Versed) 5 mg STK-MED ONCE .ROUTE ; Start 08/08/18 at 08:42; Stop 08/08/18 at 08:43; Status DC Heparin Sodium (Porcine) (Heparin Sodium) 10,000 unit STK-MED ONCE .ROUTE ; Start 08/08/18 at 08:42; Stop 08/08/18 at 08:43; Status DC Verapamil HCl (Verapamil) 5 mg STK-MED ONCE .ROUTE ; Start 08/08/18 at 08:42; Stop 08/08/18 at 08:43; Status DC Nitroglycerin (Nitroglycerin) 200 mcg STK-MED ONCE .ROUTE ; Start 08/08/18 at 08 :42; Stop 08/08/18 at 08:43; Status DC Albuterol Sulfate (Ventolin Neb Soln) 2.5 mg PRN Q4HRS PRN NEB SHORTNESS OF BREATH; Start 08/08/18 at 09:30 Guaifenesin (Robitussin Dm) 10 ml PRN Q6HRS PRN PO COUGH Last administered on at 08:59; Start 08/08/18 at 09:30 Acetaminophen (Tylenol) 500 mg PRN Q6HRS PRN PO MILD PAIN / TEMP; Start at 09:30 Ondansetron HCl (Zofran) 4 mg PRN Q6HRS PRN IV NAUSEA/VOMITING; Start 08/08/18 at 09:30 Ondansetron HCl (Zofran Odt) 4 mg PRN Q6HRS PRN PO NAUSEA/VOMITING; Start 08/08 at 09:30 Nitroglycerin (Nitroglycerin) 200 mcg 1X ONCE IART Last administered on at 10:17; Start 08/08/18 at 09:30; Stop 08/08/18 at 09:43; Status DC Verapamil HCl (Verapamil) 2.5 mg 1X ONCE IART Last administered on 08/08/18at 10:18; Start 08/08/18 at 09:30; Stop 08/08/18 at 09:43; Status DC Heparin Sodium (Porcine) (Heparin Sodium) 2,500 unit 1X ONCE IART Last administered on 08/08/18at 10:19; Start 08/08/18 at 09:30; Stop 08/08/18 at 09:43 ; Status DC Heparin Sodium/ Sodium Chloride (HEPARIN for ARTERIAL LINE FLUSH) 1,000 unit 1X ONCE IART Last administered on 08/08/18at 10:16; Start 08/08/18 at 09:30; Stop 08/08/18 at 09:43; Status DC Heparin Sodium/ Sodium Chloride (HEPARIN for ARTERIAL LINE FLUSH) 1,000 unit 1X ONCE IART Last administered on 08/08/18 10:16; Start 08/08/18 at 09:30; Stop 08/08/18 at 09:43; Status DC Midazolam HCl (Versed) 5 mg 1X ONCE IV Last administered on 08/08/18 10:18; Start 08/08/18 at 09:30; Stop 08/08/18 at 09:43; Status DC Fentanyl Citrate (Fentanyl 2ml Vial) 100 mcg 1X ONCE IV Last administered on 10:18; Start 08/08/18 at 09:30; Stop 08/08/18 at 09:43; Status DC Iodixanol (Visipaque 320) 100 ml 1X ONCE IART Last administered on 08/08/18 10:17; Start 08/08/18 at 09:30; Stop 08/08/18 at 09:43; Status DC Lidocaine HCl (Lidocaine 1% 20ml Vial) 20 ml 1X ONCE INJ Last administered on 08/08/18 10:16; Start 08/08/18 at 09:30; Stop 08/08/18 at 09:43; Status DC Info (CONTRAST GIVEN -- Rx MONITORING) 1 each PRN DAILY PRN MC SEE COMMENTS; Start 08/08/18 at 09:30; Stop 08/10/18 at 09:29 Iodixanol (Visipaque 320) 100 ml STK-MED ONCE .ROUTE ; Start 08/08/18 at 09:47; Stop 08/08/18 at 09:48; Status DC Nitroglycerin (Nitro-Bid Oint) 1 inch STK-MED ONCE .ROUTE ; Start 08/08/18 at 09 :59; Stop 08/08/18 at 10:00; Status DC Nitroglycerin (Nitro-Bid Oint) 1 inch 1X ONCE TP Last administered on at 10:00; Start 08/08/18 at 10:00; Stop 08/08/18 at 10:08; Status DC Sodium Chloride (Normal Saline Flush) 3 ml QSHIFT PRN IV AFTER MEDS AND BLOOD DRAWS; Start 08/08/18 at 10:30 Sodium Chloride 1,000 ml @ 60 mls/hr [id number] IV ; Start 08/08/18 at 10:18; Stop 08/08/18 at 14:17; Status DC Nitroglycerin (Nitrostat) 0.4 mg PRN Q5MIN PRN SL CHEST PAIN; Start 08/08/18 at 10:30 Sodium Chloride 1,000 ml @ 1,000 mls/hr Q1H PRN IV hypotension; Start 08/08/18 at 11:51; Stop 08/08/18 at 17:50; Status DC Sodium Chloride 1,000 ml @ 400 mls/hr Q2H30M PRN IV PATENCY; Start 08/08/18 at 11:51; Stop 08/08/18 at 23:50; Status DC Info (PHARMACY MONITORING -- do not chart) 1 each PRN DAILY PRN MC SEE COMMENTS ; Start 08/08/18 at 12:00; Status UNV Info (PHARMACY MONITORING -- do not chart) 1 each PRN DAILY PRN MC SEE COMMENTS ; Start 08/08/18 at 12:00 Info (Anti-Coagulation Monitoring By Pharmacy) 1 each PRN DAILY PRN MC SEE COMMENTS; Start 08/08/18 at 12:15 Hydralazine HCl (Apresoline Inj) 10 mg PRN Q4HRS PRN IVP ELEVATED BP, SEE COMMENTS Last administered on 08/08/18at 23:22; Start 08/08/18 at 17:45 Amlodipine Besylate (Norvasc) 2.5 mg DAILY PO Last administered on 08/09/18at 08 :59; Start 08/08/18 at 17:45 Albuterol/ Ipratropium (Duoneb) 3 ml RTQID NEB ; Start 08/09/18 at 12:00 Active Scripts Active Mindy-Maureen Tablet (Folic Acid/Vitamin B Comp W-C) 0.8 Mg Tablet 1 Tab PO DAILY 30 Days Allopurinol 100 Mg Tablet 100 Mg PO DAILY Novolog Flexpen (Insulin Aspart) 100 Unit/1 Ml Insuln.pen 0 Units SQ TIDWMEALS 30 Days Levemir Flextouch (Insulin Detemir) 100 Unit/1 Ml Insuln.pen 20 Units SQ QHS 30 Days Reported Renvela (Sevelamer Carbonate) 800 Mg Tablet 3 Tab PO TID Entresto 49 mg-51 mg Tablet (Sacubitril/Valsartan) 1 Each Tablet 1 Each PO BID Lasix (Furosemide) 40 Mg Tablet 80 Mg PO BID Sensipar (Cinacalcet Hcl) 30 Mg Tablet 60 Mg PO DAILY Eliquis (Apixaban) 5 Mg Tablet 5 Mg PO BID Ferrous Sulfate 325 Mg Tablet 1 Tab PO TID Coreg (Carvedilol) 6.25 Mg Tablet 1 Tab PO BID does not take morning of dialysis Pravastatin Sodium 20 Mg Tablet 20 Mg PO DAILY Vitals/I & O Vital Sign - Last 24 Hours 08/08/18 08/08/18 08/08/18 08/08/18 11:00 11:11 11:15 11:30 Temp 97.6 97.6 Pulse 65 77 70 72 Resp 19 B/P (MAP) 167/79 (108) 221/90 (133) 172/70 (104) 172/83 (112) Pulse Ox 94 O2 Delivery Nasal Cannula O2 Flow Rate 2.0 08/08/18 08/08/18 08/08/18 08/08/18 11:45 15:26 18:04 19:30 Pulse 72 80 90 B/P (MAP) 192/78 (116) 183/91 O2 Delivery Room Air 08/08/18 08/08/18 08/08/18 08/09/18 19:35 23:05 23:22 03:45 Temp 99.1 98.4 98.3 99.1 98.4 98.3 Pulse 93 75 77 80 Resp 22 22 24 B/P (MAP) 144/49 (80) 179/79 (112) 179/79 143/66 (91) Pulse Ox 94 99 96 O2 Delivery Nasal Cannula Nasal Cannula Room Air O2 Flow Rate 3.0 3.0 08/09/18 08/09/18 08/09/18 08/09/18 07:00 08:00 08:58 08:59 Temp 99.3 99.3 Pulse 70 75 75 Resp 18 B/P (MAP) 142/57 (85) Pulse Ox 99 O2 Delivery Nasal Cannula Room Air O2 Flow Rate 3.0 Intake and Output 08/08/18 08/08/18 08/09/18 15:00 23:00 07:00 Intake Total 120 ml 0 ml 200 ml Balance 120 ml 0 ml 200 ml VERENA OROZCO MD Aug 09, 2018 10:52
[2018-08-09 11:00] VITALS: BP 137/50
[2018-08-09] MEDS: IPRATRPIUM/ALBUTEROL 0.5/2.5MG 3 ML NEBU. NEB SCH ×3 (12:08→19:55)
[2018-08-09] MEDS ORDERED: BENZOCAINE/MENTHOL LOZENGE. PO PRN (12:45)
--- NOTE | 2018-08-09 12:54 | RAD ---
PORTABLE CHEST 1V History: COUGH, DYSPNEA Comparison: June 04, 2017 Findings: Single view of the chest is submitted. Pericardial cardiac silhouette is enlarged although unchanged. There is atherosclerotic calcification near the aortic arch. There is no pneumothorax or pleural fluid. There is interstitial opacity bilaterally in part present previously although increased at the lung bases. Impression: 1. There is some interstitial opacity bilaterally in part present previously although increased at the lung bases which may be due to interstitial edema. Electronically signed by: Arsalan Barba MD (08/09/2018 12:51 PM) [facility]
[2018-08-09] MEDS: ANTI-COAG MONITOR BY PHARMACY. MC PRN (13:29)
--- NOTE | 2018-08-09 14:59 | PDOC ---
PROGRESS NOTES Chief Complaint Chief Complaint 1. Acute on chronic systolic CHF: recurrent despite HD with recent LVEF 35-40% , porribly ischemic induced 2. Hypertension: controlled 3. Hyperlipidemia; lipids on goal 4. Diabetes, II; as per PCP 5. Chronic RLE wound; followed by wound care clinic. No significant LE PAD per recent sono 6. ESRD on HD; MWF 7. Anemia of chronic disease 8. Chronic AFIB; rate controlled. on Eliquis for stroke prevention 9. H/o CVA 10. CAD; noted 50% OM lesion on [facility] 03/2017 cath 08/08 Moderate three-vessel coronary disease with no hemodynamically significant lesions. Normal IFR measurement of a obtuse marginal 1 lesion. Elevated left ventricular end-diastolic pressure. History of Present Illness History of Present Illness cough, check speech eval and CXR cont current otherwise PT and OT On Eliquis and aspirin and Lasix Blood pressure on the high side, readmission CHF 07/31/18, recent [facility] admit too/work up - planned for MPI Plan:cath Vitals Vitals Vital Signs Date Time Temp Pulse Resp B/P (MAP) Pulse Ox O2 Delivery O2 Flow Rate FiO2 08/09/18 12:10 Nasal Cannula 2.0 08/09/18 11:00 98.1 60 18 137/50 (79) 100 98.1 Physical Exam General: Alert, Oriented X3, Cooperative, mild distress Heart: Regular rate, Other (2+) Lungs: Clear Abdomen: Normal bowel sounds, Soft, No tenderness Extremities: No clubbing Skin: No breakdown Labs LABS Laboratory Tests Test 08/08/18 17:02 08/08/18 20:40 08/09/18 04:45 08/09/18 07:43 Glucose (Fingerstick) 99 mg/dL (70-99) 193 mg/dL (70-99) 138 mg/dL (70-99) White Blood Count 9.9 x10^3/uL (4.0-11.0) Red Blood Count 2.41 x10^6/uL (4.30-5.70) Hemoglobin 8.0 g/dL (13.0-17.5) Hematocrit 24.1 % (39.0-53.0) Mean Corpuscular Volume 100 fL (79-100) Mean Corpuscular Hemoglobin 33 pg (25-35) Mean Corpuscular Hemoglobin Concent 33 g/dL (31-37) Red Cell Distribution Width 14.3 % (11.5-14.5) Platelet Count 158 x10^3/uL (140-400) Sodium Level 137 mmol/L (136-145) Potassium Level 3.8 mmol/L (3.5-5.1) Chloride Level 98 mmol/L (98-107) Carbon Dioxide Level 30 mmol/L (21-32) Anion Gap 9 (6-14) Blood Urea Nitrogen 28 mg/dL (8-26) Creatinine 4.5 mg/dL (0.7-1.3) Estimated GFR (Cockcroft-Gault) 13.0 Glucose Level 143 mg/dL (70-99) Calcium Level 8.6 mg/dL (8.5-10.1) Test 08/09/18 11:26 Glucose (Fingerstick) 151 mg/dL (70-99) Comment Review of Relevant I have reviewed the following items jennifer (where applicable) has been applied. Labs Laboratory Tests Test 08/07/18 16:44 08/07/18 20:25 08/08/18 04:35 08/08/18 07:44 Glucose (Fingerstick) 106 mg/dL (70-99) 186 mg/dL (70-99) 128 mg/dL (70-99) White Blood Count 8.6 x10^3/uL (4.0-11.0) Red Blood Count 2.67 x10^6/uL (4.30-5.70) Hemoglobin 9.0 g/dL (13.0-17.5) Hematocrit 26.9 % (39.0-53.0) Mean Corpuscular Volume 101 fL (79-100) Mean Corpuscular Hemoglobin 34 pg (25-35) Mean Corpuscular Hemoglobin Concent 33 g/dL (31-37) Red Cell Distribution Width 14.0 % (11.5-14.5) Platelet Count 166 x10^3/uL (140-400) Neutrophils (%) (Auto) 78 % (31-73) Lymphocytes (%) (Auto) 11 % (24-48) Monocytes (%) (Auto) 8 % (0-9) Eosinophils (%) (Auto) 3 % (0-3) Basophils (%) (Auto) 1 % (0-3) Neutrophils # (Auto) 6.7 x10^3uL (1.8-7.7) Lymphocytes # (Auto) 0.9 x10^3/uL (1.0-4.8) Monocytes # (Auto) 0.7 x10^3/uL (0.0-1.1) Eosinophils # (Auto) 0.2 x10^3/uL (0.0-0.7) Basophils # (Auto) 0.0 x10^3/uL (0.0-0.2) Prothrombin Time 16.7 SEC (11.7-14.0) Prothromb Time International Ratio 1.4 (0.8-1.1) Sodium Level 142 mmol/L (136-145) Potassium Level 4.2 mmol/L (3.5-5.1) Chloride Level 102 mmol/L (98-107) Carbon Dioxide Level 27 mmol/L (21-32) Anion Gap 13 (6-14) Blood Urea Nitrogen 47 mg/dL (8-26) Creatinine 6.4 mg/dL (0.7-1.3) Estimated GFR (Cockcroft-Gault) 8.6 Glucose Level 130 mg/dL (70-99) Calcium Level 8.5 mg/dL (8.5-10.1) Magnesium Level 2.0 mg/dL (1.8-2.4) Test 08/08/18 11:26 08/08/18 17:02 08/08/18 20:40 08/09/18 04:45 Glucose (Fingerstick) 120 mg/dL (70-99) 99 mg/dL (70-99) 193 mg/dL (70-99) White Blood Count 9.9 x10^3/uL (4.0-11.0) Red Blood Count 2.41 x10^6/uL (4.30-5.70) Hemoglobin 8.0 g/dL (13.0-17.5) Hematocrit 24.1 % (39.0-53.0) Mean Corpuscular Volume 100 fL (79-100) Mean Corpuscular Hemoglobin 33 pg (25-35) Mean Corpuscular Hemoglobin Concent 33 g/dL (31-37) Red Cell Distribution Width 14.3 % (11.5-14.5) Platelet Count 158 x10^3/uL (140-400) Sodium Level 137 mmol/L (136-145) Potassium Level 3.8 mmol/L (3.5-5.1) Chloride Level 98 mmol/L (98-107) Carbon Dioxide Level 30 mmol/L (21-32) Anion Gap 9 (6-14) Blood Urea Nitrogen 28 mg/dL (8-26) Creatinine 4.5 mg/dL (0.7-1.3) Estimated GFR (Cockcroft-Gault) 13.0 Glucose Level 143 mg/dL (70-99) Calcium Level 8.6 mg/dL (8.5-10.1) Test 08/09/18 07:43 08/09/18 11:26 Glucose (Fingerstick) 138 mg/dL (70-99) 151 mg/dL (70-99) Laboratory Tests Test 08/08/18 17:02 08/08/18 20:40 08/09/18 04:45 08/09/18 07:43 Glucose (Fingerstick) 99 mg/dL (70-99) 193 mg/dL (70-99) 138 mg/dL (70-99) White Blood Count 9.9 x10^3/uL (4.0-11.0) Red Blood Count 2.41 x10^6/uL (4.30-5.70) Hemoglobin 8.0 g/dL (13.0-17.5) Hematocrit 24.1 % (39.0-53.0) Mean Corpuscular Volume 100 fL (79-100) Mean Corpuscular Hemoglobin 33 pg (25-35) Mean Corpuscular Hemoglobin Concent 33 g/dL (31-37) Red Cell Distribution Width 14.3 % (11.5-14.5) Platelet Count 158 x10^3/uL (140-400) Sodium Level 137 mmol/L (136-145) Potassium Level 3.8 mmol/L (3.5-5.1) Chloride Level 98 mmol/L (98-107) Carbon Dioxide Level 30 mmol/L (21-32) Anion Gap 9 (6-14) Blood Urea Nitrogen 28 mg/dL (8-26) Creatinine 4.5 mg/dL (0.7-1.3) Estimated GFR (Cockcroft-Gault) 13.0 Glucose Level 143 mg/dL (70-99) Calcium Level 8.6 mg/dL (8.5-10.1) Test 08/09/18 11:26 Glucose (Fingerstick) 151 mg/dL (70-99) Medications Current Medications Apixaban (Eliquis) 5 mg BID PO Last administered on 08/09/18 08:58; Start at 09:00 Carvedilol (Coreg) 6.25 mg BIDWMEALS PO Last administered on 08/09/18 08:58; Start 08/07/18 at 17:00 Furosemide (Lasix) 80 mg BID92 PO Last administered on 08/09/18 14:42; Start 08/07/18 at 14:00 Atorvastatin Calcium (Lipitor) 5 mg QHS PO Last administered on 08/08/18 20:04 ; Start 08/07/18 at 21:00 Aspirin (Ecotrin) 81 mg [id number] PO Last administered on 08/09/18 08:58; Start 08/08/18 at 08:00 Aspirin (Ecotrin) 325 mg 1X ONCE PO Last administered on 08/07/18 14:05; Start 08/07/18 at 14:00; Stop 08/07/18 at 14:01; Status DC Acetaminophen/ Hydrocodone Bitart (Lortab 5/325) 1 tab PRN Q6HRS PRN PO MODERATE - SEVERE PAIN Last administered on 08/07/18 20:42; Start 08/07/18 at 20:30 Guaifenesin (Robitussin Dm) 10 ml PRN Q6HRS PRN PO COUGH Last administered on 20:42; Start 08/07/18 at 20:30; Stop 08/08/18 at 12:03; Status DC Iodixanol (Visipaque 320) 100 ml STK-MED ONCE .ROUTE ; Start 08/08/18 at 07:49; Stop 08/08/18 at 07:50; Status DC Lidocaine HCl (Lidocaine 1% 20ml Vial) 20 ml STK-MED ONCE .ROUTE ; Start at 07:49; Stop 08/08/18 at 07:50; Status DC Heparin Sodium/ Sodium Chloride 1,500 ml @ As Directed STK-MED ONCE .ROUTE ; Start 08/08/18 at 07:49; Stop 08/08/18 at 07:50; Status DC Fentanyl Citrate (Fentanyl 2ml Vial) 100 mcg STK-MED ONCE .ROUTE ; Start at 08:42; Stop 08/08/18 at 08:43; Status DC Midazolam HCl (Versed) 5 mg STK-MED ONCE .ROUTE ; Start 08/08/18 at 08:42; Stop 08/08/18 at 08:43; Status DC Heparin Sodium (Porcine) (Heparin Sodium) 10,000 unit STK-MED ONCE .ROUTE ; Start 08/08/18 at 08:42; Stop 08/08/18 at 08:43; Status DC Verapamil HCl (Verapamil) 5 mg STK-MED ONCE .ROUTE ; Start 08/08/18 at 08:42; Stop 08/08/18 at 08:43; Status DC Nitroglycerin (Nitroglycerin) 200 mcg STK-MED ONCE .ROUTE ; Start 08/08/18 at 08 :42; Stop 08/08/18 at 08:43; Status DC Albuterol Sulfate (Ventolin Neb Soln) 2.5 mg PRN Q4HRS PRN NEB SHORTNESS OF BREATH; Start 08/08/18 at 09:30 Guaifenesin (Robitussin Dm) 10 ml PRN Q6HRS PRN PO COUGH Last administered on at 08:59; Start 08/08/18 at 09:30 Acetaminophen (Tylenol) 500 mg PRN Q6HRS PRN PO MILD PAIN / TEMP; Start at 09:30 Ondansetron HCl (Zofran) 4 mg PRN Q6HRS PRN IV NAUSEA/VOMITING; Start 08/08/18 at 09:30 Ondansetron HCl (Zofran Odt) 4 mg PRN Q6HRS PRN PO NAUSEA/VOMITING; Start 08/08 at 09:30 Nitroglycerin (Nitroglycerin) 200 mcg 1X ONCE IART Last administered on at 10:17; Start 08/08/18 at 09:30; Stop 08/08/18 at 09:43; Status DC Verapamil HCl (Verapamil) 2.5 mg 1X ONCE IART Last administered on 08/08/18at 10:18; Start 08/08/18 at 09:30; Stop 08/08/18 at 09:43; Status DC Heparin Sodium (Porcine) (Heparin Sodium) 2,500 unit 1X ONCE IART Last administered on 08/08/18 10:19; Start 08/08/18 at 09:30; Stop 08/08/18 at 09:43 ; Status DC Heparin Sodium/ Sodium Chloride (HEPARIN for ARTERIAL LINE FLUSH) 1,000 unit 1X ONCE IART Last administered on 08/08/18 10:16; Start 08/08/18 at 09:30; Stop 08/08/18 at 09:43; Status DC Heparin Sodium/ Sodium Chloride (HEPARIN for ARTERIAL LINE FLUSH) 1,000 unit 1X ONCE IART Last administered on 08/08/18 10:16; Start 08/08/18 at 09:30; Stop 08/08/18 at 09:43; Status DC Midazolam HCl (Versed) 5 mg 1X ONCE IV Last administered on 08/08/18 10:18; Start 08/08/18 at 09:30; Stop 08/08/18 at 09:43; Status DC Fentanyl Citrate (Fentanyl 2ml Vial) 100 mcg 1X ONCE IV Last administered on 10:18; Start 08/08/18 at 09:30; Stop 08/08/18 at 09:43; Status DC Iodixanol (Visipaque 320) 100 ml 1X ONCE IART Last administered on 08/08/18 10:17; Start 08/08/18 at 09:30; Stop 08/08/18 at 09:43; Status DC Lidocaine HCl (Lidocaine 1% 20ml Vial) 20 ml 1X ONCE INJ Last administered on 08/08/18 10:16; Start 08/08/18 at 09:30; Stop 08/08/18 at 09:43; Status DC Info (CONTRAST GIVEN -- Rx MONITORING) 1 each PRN DAILY PRN MC SEE COMMENTS; Start 08/08/18 at 09:30; Stop 08/10/18 at 09:29 Iodixanol (Visipaque 320) 100 ml STK-MED ONCE .ROUTE ; Start 08/08/18 at 09:47; Stop 08/08/18 at 09:48; Status DC Nitroglycerin (Nitro-Bid Oint) 1 inch STK-MED ONCE .ROUTE ; Start 08/08/18 at 09 :59; Stop 08/08/18 at 10:00; Status DC Nitroglycerin (Nitro-Bid Oint) 1 inch 1X ONCE TP Last administered on at 10:00; Start 08/08/18 at 10:00; Stop 08/08/18 at 10:08; Status DC Sodium Chloride (Normal Saline Flush) 3 ml QSHIFT PRN IV AFTER MEDS AND BLOOD DRAWS; Start 08/08/18 at 10:30 Sodium Chloride 1,000 ml @ 60 mls/hr [id number] IV ; Start 08/08/18 at 10:18; Stop 08/08/18 at 14:17; Status DC Nitroglycerin (Nitrostat) 0.4 mg PRN Q5MIN PRN SL CHEST PAIN; Start 08/08/18 at 10:30 Sodium Chloride 1,000 ml @ 1,000 mls/hr Q1H PRN IV hypotension; Start 08/08/18 at 11:51; Stop 08/08/18 at 17:50; Status DC Sodium Chloride 1,000 ml @ 400 mls/hr Q2H30M PRN IV PATENCY; Start 08/08/18 at 11:51; Stop 08/08/18 at 23:50; Status DC Info (PHARMACY MONITORING -- do not chart) 1 each PRN DAILY PRN MC SEE COMMENTS ; Start 08/08/18 at 12:00; Status UNV Info (PHARMACY MONITORING -- do not chart) 1 each PRN DAILY PRN MC SEE COMMENTS ; Start 08/08/18 at 12:00 Info (Anti-Coagulation Monitoring By Pharmacy) 1 each PRN DAILY PRN MC SEE COMMENTS Last administered on 08/09/18at 13:29; Start 08/08/18 at 12:15 Hydralazine HCl (Apresoline Inj) 10 mg PRN Q4HRS PRN IVP ELEVATED BP, SEE COMMENTS Last administered on 08/08/18at 23:22; Start 08/08/18 at 17:45 Amlodipine Besylate (Norvasc) 2.5 mg DAILY PO Last administered on 08/09/18at 08 :59; Start 08/08/18 at 17:45 Albuterol/ Ipratropium (Duoneb) 3 ml RTQID NEB Last administered on 08/09/18at 12:08; Start 08/09/18 at 12:00 Throat Lozenges (Cepacol Sore Throat Lozenge) 1 erika PRN Q2HRS PRN PO SORE THROAT; Start 08/09/18 at 12:45 Active Scripts Active Mindy-Maureen Tablet (Folic Acid/Vitamin B Comp W-C) 0.8 Mg Tablet 1 Tab PO DAILY 30 Days Allopurinol 100 Mg Tablet 100 Mg PO DAILY Novolog Flexpen (Insulin Aspart) 100 Unit/1 Ml Insuln.pen 0 Units SQ TIDWMEALS 30 Days Levemir Flextouch (Insulin Detemir) 100 Unit/1 Ml Insuln.pen 20 Units SQ QHS 30 Days Reported Renvela (Sevelamer Carbonate) 800 Mg Tablet 3 Tab PO TID Entresto 49 mg-51 mg Tablet (Sacubitril/Valsartan) 1 Each Tablet 1 Each PO BID Lasix (Furosemide) 40 Mg Tablet 80 Mg PO BID Sensipar (Cinacalcet Hcl) 30 Mg Tablet 60 Mg PO DAILY Eliquis (Apixaban) 5 Mg Tablet 5 Mg PO BID Ferrous Sulfate 325 Mg Tablet 1 Tab PO TID Coreg (Carvedilol) 6.25 Mg Tablet 1 Tab PO BID does not take morning of dialysis Pravastatin Sodium 20 Mg Tablet 20 Mg PO DAILY Vitals/I & O Vital Sign - Last 24 Hours 08/08/18 08/08/18 08/08/18 08/08/18 15:26 18:04 19:30 19:35 Temp 99.1 99.1 Pulse 80 90 93 Resp 22 B/P (MAP) 183/91 144/49 (80) Pulse Ox 94 O2 Delivery Room Air Nasal Cannula O2 Flow Rate 3.0 08/08/18 08/08/18 08/09/18 08/09/18 23:05 23:22 03:45 07:00 Temp 98.4 98.3 99.3 98.4 98.3 99.3 Pulse 75 77 80 70 Resp 22 24 18 B/P (MAP) 179/79 (112) 179/79 143/66 (91) 142/57 (85) Pulse Ox 99 96 99 O2 Delivery Nasal Cannula Room Air Nasal Cannula O2 Flow Rate 3.0 3.0 08/09/18 08/09/18 08/09/18 08/09/18 08:00 08:58 08:59 11:00 Temp 98.1 98.1 Pulse 75 75 60 Resp 18 B/P (MAP) 137/50 (79) Pulse Ox 100 O2 Delivery Room Air Nasal Cannula O2 Flow Rate 3.0 08/09/18 12:10 O2 Delivery Nasal Cannula O2 Flow Rate 2.0 Intake and Output 08/08/18 08/08/18 08/09/18 14:59 22:59 06:59 Intake Total 120 ml 0 ml 200 ml Balance 120 ml 0 ml 200 ml RICKEY ISRAEL MD Aug 09, 2018 14:59
[2018-08-09 15:00] VITALS: BP 141/42
--- NOTE | 2018-08-09 15:55 | NUR ---
Bedside Swallow Evaluation completed. Please see full report for additional details. Impressions: Functional oropharyngeal swallow. Swallow appeared timely and no s/s aspiration were noted throughout evaluation. Pt coughed frequently prior to and after swallow evaluation but not during evaluation. Cough appears unrelated to swallow. Recommendations: Regular diet and liquids. No additional ST services indicated at this time.
[2018-08-09 19:20] VITALS: BP 142/70
[2018-08-09] MEDS: ATORVASTATIN CALCIUM 10 MG TABLET. PO SCH (20:22)
[2018-08-09 23:32] VITALS: BP 117/45
[2018-08-10] VITALS (7 sets, daily range): BP systolic 114–170; BP diastolic 47–77
[2018-08-10] MEDS: ASPIRIN ENTERIC COATED 81 MG TABLET.DR. PO SCH (07:42)
[2018-08-10] MEDS: amLODIPine BESYLATE 5 MG TABLET PO SCH (07:42)
[2018-08-10] MEDS: FUROSEMIDE 40 MG TABLET. PO SCH ×2 (07:42→15:37)
[2018-08-10] MEDS: CARVEDILOL 6.25 MG TABLET. PO SCH ×2 (07:42→17:27)
[2018-08-10] MEDS: APIXABAN 5 MG TABLET. PO SCH ×2 (07:42→20:38)
[2018-08-10] MEDS: IPRATRPIUM/ALBUTEROL 0.5/2.5MG 3 ML NEBU. NEB SCH ×4 (08:33→20:44)
--- NOTE | 2018-08-10 09:34 | PDOC ---
PROGRESS NOTES Chief Complaint Chief Complaint 1. Acute on chronic systolic CHF: recurrent despite HD with recent LVEF 35-40% , porribly ischemic induced 2. Hypertension: controlled 3. Hyperlipidemia; lipids on goal 4. Diabetes, II; as per PCP 5. Chronic RLE wound; followed by wound care clinic. No significant LE PAD per recent sono 6. ESRD on HD; MWF 7. Anemia of chronic disease 8. Chronic AFIB; rate controlled. on Eliquis for stroke prevention 9. H/o CVA 10. CAD; noted 50% OM lesion on [facility] 03/2017 cath was done 08/08 Moderate three-vessel coronary disease with no hemodynamically significant lesions. Normal IFR measurement of a obtuse marginal 1 lesion. Elevated left ventricular end-diastolic pressure. History of Present Illness History of Present Illness breathing easier, still weak, slept OK On Eliquis and aspirin and Lasix PT eval from 08/09, rec. SNU, try again today, wean 02, 6 min walk Vitals Vitals Vital Signs Date Time Temp Pulse Resp B/P (MAP) Pulse Ox O2 Delivery O2 Flow Rate FiO2 08/10/18 08:34 96 Nasal Cannula 2.0 08/10/18 07:42 74 08/10/18 07:17 98.3 22 170/61 (97) 98.3 Physical Exam General: Alert, Oriented X3, Cooperative, mild distress Heart: Regular rate, Other (2+) Lungs: Clear Abdomen: Normal bowel sounds, Soft, No tenderness Extremities: No clubbing Skin: No breakdown Labs LABS Laboratory Tests Test 08/09/18 11:26 08/09/18 16:58 08/09/18 20:53 08/10/18 08:04 Glucose (Fingerstick) 151 mg/dL (70-99) 111 mg/dL (70-99) 128 mg/dL (70-99) 126 mg/dL (70-99) Comment Review of Relevant I have reviewed the following items jennifer (where applicable) has been applied. Labs Laboratory Tests Test 08/08/18 11:26 08/08/18 17:02 08/08/18 20:40 08/09/18 04:45 Glucose (Fingerstick) 120 mg/dL (70-99) 99 mg/dL (70-99) 193 mg/dL (70-99) White Blood Count 9.9 x10^3/uL (4.0-11.0) Red Blood Count 2.41 x10^6/uL (4.30-5.70) Hemoglobin 8.0 g/dL (13.0-17.5) Hematocrit 24.1 % (39.0-53.0) Mean Corpuscular Volume 100 fL (79-100) Mean Corpuscular Hemoglobin 33 pg (25-35) Mean Corpuscular Hemoglobin Concent 33 g/dL (31-37) Red Cell Distribution Width 14.3 % (11.5-14.5) Platelet Count 158 x10^3/uL (140-400) Sodium Level 137 mmol/L (136-145) Potassium Level 3.8 mmol/L (3.5-5.1) Chloride Level 98 mmol/L (98-107) Carbon Dioxide Level 30 mmol/L (21-32) Anion Gap 9 (6-14) Blood Urea Nitrogen 28 mg/dL (8-26) Creatinine 4.5 mg/dL (0.7-1.3) Estimated GFR (Cockcroft-Gault) 13.0 Glucose Level 143 mg/dL (70-99) Calcium Level 8.6 mg/dL (8.5-10.1) Test 08/09/18 07:43 08/09/18 11:26 08/09/18 16:58 08/09/18 20:53 Glucose (Fingerstick) 138 mg/dL (70-99) 151 mg/dL (70-99) 111 mg/dL (70-99) 128 mg/dL (70-99) Test 08/10/18 08:04 Glucose (Fingerstick) 126 mg/dL (70-99) Laboratory Tests Test 08/09/18 11:26 08/09/18 16:58 08/09/18 20:53 08/10/18 08:04 Glucose (Fingerstick) 151 mg/dL (70-99) 111 mg/dL (70-99) 128 mg/dL (70-99) 126 mg/dL (70-99) Medications Current Medications Apixaban (Eliquis) 5 mg BID PO Last administered on 08/10/18at 07:42; Start at 09:00 Carvedilol (Coreg) 6.25 mg BIDWMEALS PO Last administered on 08/10/18 07:42; Start 08/07/18 at 17:00 Furosemide (Lasix) 80 mg BID92 PO Last administered on 08/10/18 07:42; Start 08/07/18 at 14:00 Atorvastatin Calcium (Lipitor) 5 mg QHS PO Last administered on 08/09/18 20:22 ; Start 08/07/18 at 21:00 Aspirin (Ecotrin) 81 mg [id number] PO Last administered on 08/10/18 07:42; Start 08/08/18 at 08:00 Aspirin (Ecotrin) 325 mg 1X ONCE PO Last administered on 08/07/18 14:05; Start 08/07/18 at 14:00; Stop 08/07/18 at 14:01; Status DC Acetaminophen/ Hydrocodone Bitart (Lortab 5/325) 1 tab PRN Q6HRS PRN PO MODERATE - SEVERE PAIN Last administered on 08/07/18 20:42; Start 08/07/18 at 20:30 Guaifenesin (Robitussin Dm) 10 ml PRN Q6HRS PRN PO COUGH Last administered on 20:42; Start 08/07/18 at 20:30; Stop 08/08/18 at 12:03; Status DC Iodixanol (Visipaque 320) 100 ml STK-MED ONCE .ROUTE ; Start 08/08/18 at 07:49; Stop 08/08/18 at 07:50; Status DC Lidocaine HCl (Lidocaine 1% 20ml Vial) 20 ml STK-MED ONCE .ROUTE ; Start at 07:49; Stop 08/08/18 at 07:50; Status DC Heparin Sodium/ Sodium Chloride 1,500 ml @ As Directed STK-MED ONCE .ROUTE ; Start 08/08/18 at 07:49; Stop 08/08/18 at 07:50; Status DC Fentanyl Citrate (Fentanyl 2ml Vial) 100 mcg STK-MED ONCE .ROUTE ; Start at 08:42; Stop 08/08/18 at 08:43; Status DC Midazolam HCl (Versed) 5 mg STK-MED ONCE .ROUTE ; Start 08/08/18 at 08:42; Stop 08/08/18 at 08:43; Status DC Heparin Sodium (Porcine) (Heparin Sodium) 10,000 unit STK-MED ONCE .ROUTE ; Start 08/08/18 at 08:42; Stop 08/08/18 at 08:43; Status DC Verapamil HCl (Verapamil) 5 mg STK-MED ONCE .ROUTE ; Start 08/08/18 at 08:42; Stop 08/08/18 at 08:43; Status DC Nitroglycerin (Nitroglycerin) 200 mcg STK-MED ONCE .ROUTE ; Start 08/08/18 at 08 :42; Stop 08/08/18 at 08:43; Status DC Albuterol Sulfate (Ventolin Neb Soln) 2.5 mg PRN Q4HRS PRN NEB SHORTNESS OF BREATH; Start 08/08/18 at 09:30 Guaifenesin (Robitussin Dm) 10 ml PRN Q6HRS PRN PO COUGH Last administered on 20:22; Start 08/08/18 at 09:30 Acetaminophen (Tylenol) 500 mg PRN Q6HRS PRN PO MILD PAIN / TEMP Last administered on 08/09/18at 20:22; Start 08/08/18 at 09:30 Ondansetron HCl (Zofran) 4 mg PRN Q6HRS PRN IV NAUSEA/VOMITING; Start 08/08/18 at 09:30 Ondansetron HCl (Zofran Odt) 4 mg PRN Q6HRS PRN PO NAUSEA/VOMITING; Start 08/08 at 09:30 Nitroglycerin (Nitroglycerin) 200 mcg 1X ONCE IART Last administered on 10:17; Start 08/08/18 at 09:30; Stop 08/08/18 at 09:43; Status DC Verapamil HCl (Verapamil) 2.5 mg 1X ONCE IART Last administered on 08/08/18 10:18; Start 08/08/18 at 09:30; Stop 08/08/18 at 09:43; Status DC Heparin Sodium (Porcine) (Heparin Sodium) 2,500 unit 1X ONCE IART Last administered on 08/08/18at 10:19; Start 08/08/18 at 09:30; Stop 08/08/18 at 09:43 ; Status DC Heparin Sodium/ Sodium Chloride (HEPARIN for ARTERIAL LINE FLUSH) 1,000 unit 1X ONCE IART Last administered on 08/08/18 10:16; Start 08/08/18 at 09:30; Stop 08/08/18 at 09:43; Status DC Heparin Sodium/ Sodium Chloride (HEPARIN for ARTERIAL LINE FLUSH) 1,000 unit 1X ONCE IART Last administered on 08/08/18 10:16; Start 08/08/18 at 09:30; Stop 08/08/18 at 09:43; Status DC Midazolam HCl (Versed) 5 mg 1X ONCE IV Last administered on 08/08/18 10:18; Start 08/08/18 at 09:30; Stop 08/08/18 at 09:43; Status DC Fentanyl Citrate (Fentanyl 2ml Vial) 100 mcg 1X ONCE IV Last administered on 10:18; Start 08/08/18 at 09:30; Stop 08/08/18 at 09:43; Status DC Iodixanol (Visipaque 320) 100 ml 1X ONCE IART Last administered on 08/08/18 10:17; Start 08/08/18 at 09:30; Stop 08/08/18 at 09:43; Status DC Lidocaine HCl (Lidocaine 1% 20ml Vial) 20 ml 1X ONCE INJ Last administered on 08/08/18 10:16; Start 08/08/18 at 09:30; Stop 08/08/18 at 09:43; Status DC Info (CONTRAST GIVEN -- Rx MONITORING) 1 each PRN DAILY PRN MC SEE COMMENTS; Start 08/08/18 at 09:30; Stop 08/10/18 at 09:29 Iodixanol (Visipaque 320) 100 ml STK-MED ONCE .ROUTE ; Start 08/08/18 at 09:47; Stop 08/08/18 at 09:48; Status DC Nitroglycerin (Nitro-Bid Oint) 1 inch STK-MED ONCE .ROUTE ; Start 08/08/18 at 09 :59; Stop 08/08/18 at 10:00; Status DC Nitroglycerin (Nitro-Bid Oint) 1 inch 1X ONCE TP Last administered on at 10:00; Start 08/08/18 at 10:00; Stop 08/08/18 at 10:08; Status DC Sodium Chloride (Normal Saline Flush) 3 ml QSHIFT PRN IV AFTER MEDS AND BLOOD DRAWS; Start 08/08/18 at 10:30 Sodium Chloride 1,000 ml @ 60 mls/hr [id number] IV ; Start 08/08/18 at 10:18; Stop 08/08/18 at 14:17; Status DC Nitroglycerin (Nitrostat) 0.4 mg PRN Q5MIN PRN SL CHEST PAIN; Start 08/08/18 at 10:30 Sodium Chloride 1,000 ml @ 1,000 mls/hr Q1H PRN IV hypotension; Start 08/08/18 at 11:51; Stop 08/08/18 at 17:50; Status DC Sodium Chloride 1,000 ml @ 400 mls/hr Q2H30M PRN IV PATENCY; Start 08/08/18 at 11:51; Stop 08/08/18 at 23:50; Status DC Info (PHARMACY MONITORING -- do not chart) 1 each PRN DAILY PRN MC SEE COMMENTS ; Start 08/08/18 at 12:00; Status UNV Info (PHARMACY MONITORING -- do not chart) 1 each PRN DAILY PRN MC SEE COMMENTS ; Start 08/08/18 at 12:00 Info (Anti-Coagulation Monitoring By Pharmacy) 1 each PRN DAILY PRN MC SEE COMMENTS Last administered on 08/09/18at 13:29; Start 08/08/18 at 12:15 Hydralazine HCl (Apresoline Inj) 10 mg PRN Q4HRS PRN IVP ELEVATED BP, SEE COMMENTS Last administered on 08/08/18at 23:22; Start 08/08/18 at 17:45 Amlodipine Besylate (Norvasc) 2.5 mg DAILY PO Last administered on 08/10/18at 07 :42; Start 08/08/18 at 17:45 Albuterol/ Ipratropium (Duoneb) 3 ml RTQID NEB Last administered on 08/10/18at 08:33; Start 08/09/18 at 12:00 Throat Lozenges (Cepacol Sore Throat Lozenge) 1 erika PRN Q2HRS PRN PO SORE THROAT; Start 08/09/18 at 12:45 Active Scripts Active Mindy-Maureen Tablet (Folic Acid/Vitamin B Comp W-C) 0.8 Mg Tablet 1 Tab PO DAILY 30 Days Allopurinol 100 Mg Tablet 100 Mg PO DAILY Novolog Flexpen (Insulin Aspart) 100 Unit/1 Ml Insuln.pen 0 Units SQ TIDWMEALS 30 Days Levemir Flextouch (Insulin Detemir) 100 Unit/1 Ml Insuln.pen 20 Units SQ QHS 30 Days Reported Renvela (Sevelamer Carbonate) 800 Mg Tablet 3 Tab PO TID Entresto 49 mg-51 mg Tablet (Sacubitril/Valsartan) 1 Each Tablet 1 Each PO BID Lasix (Furosemide) 40 Mg Tablet 80 Mg PO BID Sensipar (Cinacalcet Hcl) 30 Mg Tablet 60 Mg PO DAILY Eliquis (Apixaban) 5 Mg Tablet 5 Mg PO BID Ferrous Sulfate 325 Mg Tablet 1 Tab PO TID Coreg (Carvedilol) 6.25 Mg Tablet 1 Tab PO BID does not take morning of dialysis Pravastatin Sodium 20 Mg Tablet 20 Mg PO DAILY Vitals/I & O Vital Sign - Last 24 Hours 08/09/18 08/09/18 08/09/18 08/09/18 11:00 12:10 15:00 16:50 Temp 98.1 98.0 98.1 98.0 Pulse 60 73 Resp 18 18 B/P (MAP) 137/50 (79) 141/42 (75) Pulse Ox 100 100 O2 Delivery Nasal Cannula Nasal Cannula Room Air Nasal Cannula O2 Flow Rate 3.0 2.0 2.0 2.0 08/09/18 08/09/18 08/09/18 08/09/18 17:34 19:20 19:33 19:40 Temp 98.8 98.8 Pulse 85 90 Resp 22 B/P (MAP) 142/70 (94) Pulse Ox 98 O2 Delivery Nasal Cannula Room Air Nasal Cannula O2 Flow Rate 2.0 2.0 08/09/18 08/10/18 08/10/18 08/10/18 23:32 03:45 07:17 07:42 Temp 98.1 100.2 98.3 98.1 100.2 98.3 Pulse 79 86 88 78 Resp 22 22 B/P (MAP) 117/45 (69) 157/67 (97) 170/61 (97) Pulse Ox 100 100 99 O2 Delivery Nasal Cannula Nasal Cannula Nasal Cannula O2 Flow Rate 2.0 2.0 2.0 08/10/18 08/10/18 08/10/18 07:42 08:05 08:34 Pulse 74 Pulse Ox 96 O2 Delivery Room Air Nasal Cannula O2 Flow Rate 2.0 Intake and Output 08/09/18 08/09/18 08/10/18 14:59 22:59 06:59 Intake Total 300 ml 250 ml Output Total 200 ml Balance 300 ml 50 ml RICKEY ISRAEL MD Aug 10, 2018 09:34
[2018-08-10] MEDS: ANTI-COAG MONITOR BY PHARMACY. MC PRN (12:38)
[2018-08-10] MEDS: ATORVASTATIN CALCIUM 10 MG TABLET. PO SCH (20:38)
[2018-08-11 03:24] VITALS: BP 111/52
[2018-08-11 05:36] LABS: BASO % 1 % (0-3); EOS # 0.3 x10^3/uL (0.0-0.7); EOS % 4 % (0-3); HEMATOCRIT 23.6 % (39.0-53.0); HEMOGLOBIN 7.9 g/dL (13.0-17.5); LYMPH % 15 % (24-48); MEAN CORPUSCULAR HEMOGLOBIN 33 pg (25-35); MEAN CORPUSCULAR HGB CONC 33 g/dL (31-37); MEAN CORPUSCULAR VOLUME 99 fL (79-100); MONO # 0.6 x10^3/uL (0.0-1.1); MONO % 9 % (0-9); NEUT % 72 % (31-73); PLATELET COUNT 130 x10^3/uL (140-400); RED BLOOD COUNT 2.38 x10^6/uL (4.30-5.70); RED CELL DISTRIBUTION WIDTH 14.3 % (11.5-14.5)
[2018-08-11 05:39] LABS: ALBUMIN 2.9 g/dL (3.4-5.0); ALBUMIN/GLOBULIN RATIO 0.7 (1.0-1.7); CALCIUM 8.7 mg/dL (8.5-10.1); CREATININE 7.9 mg/dL (0.7-1.3); GFR 6.8; TOTAL BILIRUBIN 0.5 mg/dL (0.2-1.0); TOTAL PROTEIN 7.3 g/dL (6.4-8.2)
[2018-08-11 07:23] VITALS: BP 114/57
[2018-08-11] MEDS: CARVEDILOL 6.25 MG TABLET. PO SCH ×2 (08:00→17:00)
[2018-08-11] MEDS: IPRATRPIUM/ALBUTEROL 0.5/2.5MG 3 ML NEBU. NEB SCH ×4 (08:37→19:32)
[2018-08-11] MEDS: FUROSEMIDE 40 MG TABLET. PO SCH ×2 (08:41→15:12)
[2018-08-11] MEDS: ASPIRIN ENTERIC COATED 81 MG TABLET.DR. PO SCH (08:41)
[2018-08-11] MEDS: APIXABAN 5 MG TABLET. PO SCH ×2 (08:41→22:26)
[2018-08-11] MEDS: amLODIPine BESYLATE 5 MG TABLET PO SCH (08:42)
[2018-08-11 11:00] VITALS: BP 129/64
--- NOTE | 2018-08-11 12:05 | NUR ---
SS following up with discharge planning. Pt and pt's spouse requesting to go to [facility] at discharge for jail unit. PT/OT recommended jail unit. SS phoned and faxed referral to [facility], ; fax [phone]. SS will await acceptance decision and will proceed accordingly. Pt has HD chair time set up in the community on Saturday, Saturday, and Saturday at 1030 at [facility]. Pt's RN notified.
--- NOTE | 2018-08-11 13:52 | PDOC ---
PROGRESS NOTES Chief Complaint Chief Complaint 1. Acute on chronic systolic CHF: recurrent despite HD with recent LVEF 35-40% , possibly ischemic induced 2. Hypertension: controlled 3. Hyperlipidemia; lipids on goal 4. Diabetes, II; as per PCP 5. Chronic RLE wound; followed by wound care clinic. No significant LE PAD per recent sono 6. ESRD on HD; MWF 7. Anemia of chronic disease 8. Chronic AFIB; rate controlled. on Eliquis for stroke prevention 9. H/o CVA 10. CAD; noted 50% OM lesion on [facility] 03/2017 cath was done 08/08 Moderate three-vessel coronary disease with no hemodynamically significant lesions. Normal IFR measurement of a obtuse marginal 1 lesion. Elevated left ventricular end-diastolic pressure. CM WITH EF OF 35% dialysis today, to [facility] tomorrow likely History of Present Illness History of Present Illness weak, slept fair On Eliquis and aspirin and Lasix PT eval from 08/09, rec. SNU, still on 02, 6 min walk/// dialysis today [facility] Vitals Vitals Vital Signs Date Time Temp Pulse Resp B/P (MAP) Pulse Ox O2 Delivery O2 Flow Rate FiO2 08/11/18 11:53 96 Nasal Cannula 2.0 08/11/18 11:00 97.6 67 18 129/64 (85) 97.6 Physical Exam General: Alert, Oriented X3, Cooperative, No acute distress Heart: Regular rate, Other (2+) Lungs: Clear Abdomen: Normal bowel sounds, Soft, No tenderness Extremities: No clubbing, No cyanosis, Other (right foot dressing clean, dry, intact) Skin: No breakdown Labs LABS Laboratory Tests Test 08/10/18 17:14 08/10/18 20:39 08/11/18 05:00 08/11/18 07:11 Glucose (Fingerstick) 110 mg/dL (70-99) 144 mg/dL (70-99) 139 mg/dL (70-99) White Blood Count 7.0 x10^3/uL (4.0-11.0) Red Blood Count 2.38 x10^6/uL (4.30-5.70) Hemoglobin 7.9 g/dL (13.0-17.5) Hematocrit 23.6 % (39.0-53.0) Mean Corpuscular Volume 99 fL (79-100) Mean Corpuscular Hemoglobin 33 pg (25-35) Mean Corpuscular Hemoglobin Concent 33 g/dL (31-37) Red Cell Distribution Width 14.3 % (11.5-14.5) Platelet Count 130 x10^3/uL (140-400) Neutrophils (%) (Auto) 72 % (31-73) Lymphocytes (%) (Auto) 15 % (24-48) Monocytes (%) (Auto) 9 % (0-9) Eosinophils (%) (Auto) 4 % (0-3) Basophils (%) (Auto) 1 % (0-3) Neutrophils # (Auto) 5.0 x10^3uL (1.8-7.7) Lymphocytes # (Auto) 1.0 x10^3/uL (1.0-4.8) Monocytes # (Auto) 0.6 x10^3/uL (0.0-1.1) Eosinophils # (Auto) 0.3 x10^3/uL (0.0-0.7) Basophils # (Auto) 0.0 x10^3/uL (0.0-0.2) Sodium Level 137 mmol/L (136-145) Potassium Level 4.0 mmol/L (3.5-5.1) Chloride Level 97 mmol/L (98-107) Carbon Dioxide Level 28 mmol/L (21-32) Anion Gap 12 (6-14) Blood Urea Nitrogen 62 mg/dL (8-26) Creatinine 7.9 mg/dL (0.7-1.3) Estimated GFR (Cockcroft-Gault) 6.8 BUN/Creatinine Ratio 8 (6-20) Glucose Level 131 mg/dL (70-99) Calcium Level 8.7 mg/dL (8.5-10.1) Total Bilirubin 0.5 mg/dL (0.2-1.0) Aspartate Amino Transf (AST/SGOT) 11 U/L (15-37) Alanine Aminotransferase (ALT/SGPT) 16 U/L (16-63) Alkaline Phosphatase 85 U/L (46-116) Total Protein 7.3 g/dL (6.4-8.2) Albumin 2.9 g/dL (3.4-5.0) Albumin/Globulin Ratio 0.7 (1.0-1.7) Test 08/11/18 11:43 Glucose (Fingerstick) 163 mg/dL (70-99) Comment Review of Relevant I have reviewed the following items jennifer (where applicable) has been applied. Labs Laboratory Tests Test 08/09/18 16:58 08/09/18 20:53 08/10/18 08:04 08/10/18 17:14 Glucose (Fingerstick) 111 mg/dL (70-99) 128 mg/dL (70-99) 126 mg/dL (70-99) 110 mg/dL (70-99) Test 08/10/18 20:39 08/11/18 05:00 08/11/18 07:11 08/11/18 11:43 Glucose (Fingerstick) 144 mg/dL (70-99) 139 mg/dL (70-99) 163 mg/dL (70-99) White Blood Count 7.0 x10^3/uL (4.0-11.0) Red Blood Count 2.38 x10^6/uL (4.30-5.70) Hemoglobin 7.9 g/dL (13.0-17.5) Hematocrit 23.6 % (39.0-53.0) Mean Corpuscular Volume 99 fL (79-100) Mean Corpuscular Hemoglobin 33 pg (25-35) Mean Corpuscular Hemoglobin Concent 33 g/dL (31-37) Red Cell Distribution Width 14.3 % (11.5-14.5) Platelet Count 130 x10^3/uL (140-400) Neutrophils (%) (Auto) 72 % (31-73) Lymphocytes (%) (Auto) 15 % (24-48) Monocytes (%) (Auto) 9 % (0-9) Eosinophils (%) (Auto) 4 % (0-3) Basophils (%) (Auto) 1 % (0-3) Neutrophils # (Auto) 5.0 x10^3uL (1.8-7.7) Lymphocytes # (Auto) 1.0 x10^3/uL (1.0-4.8) Monocytes # (Auto) 0.6 x10^3/uL (0.0-1.1) Eosinophils # (Auto) 0.3 x10^3/uL (0.0-0.7) Basophils # (Auto) 0.0 x10^3/uL (0.0-0.2) Sodium Level 137 mmol/L (136-145) Potassium Level 4.0 mmol/L (3.5-5.1) Chloride Level 97 mmol/L (98-107) Carbon Dioxide Level 28 mmol/L (21-32) Anion Gap 12 (6-14) Blood Urea Nitrogen 62 mg/dL (8-26) Creatinine 7.9 mg/dL (0.7-1.3) Estimated GFR (Cockcroft-Gault) 6.8 BUN/Creatinine Ratio 8 (6-20) Glucose Level 131 mg/dL (70-99) Calcium Level 8.7 mg/dL (8.5-10.1) Total Bilirubin 0.5 mg/dL (0.2-1.0) Aspartate Amino Transf (AST/SGOT) 11 U/L (15-37) Alanine Aminotransferase (ALT/SGPT) 16 U/L (16-63) Alkaline Phosphatase 85 U/L (46-116) Total Protein 7.3 g/dL (6.4-8.2) Albumin 2.9 g/dL (3.4-5.0) Albumin/Globulin Ratio 0.7 (1.0-1.7) Laboratory Tests Test 08/10/18 17:14 08/10/18 20:39 08/11/18 05:00 08/11/18 07:11 Glucose (Fingerstick) 110 mg/dL (70-99) 144 mg/dL (70-99) 139 mg/dL (70-99) White Blood Count 7.0 x10^3/uL (4.0-11.0) Red Blood Count 2.38 x10^6/uL (4.30-5.70) Hemoglobin 7.9 g/dL (13.0-17.5) Hematocrit 23.6 % (39.0-53.0) Mean Corpuscular Volume 99 fL (79-100) Mean Corpuscular Hemoglobin 33 pg (25-35) Mean Corpuscular Hemoglobin Concent 33 g/dL (31-37) Red Cell Distribution Width 14.3 % (11.5-14.5) Platelet Count 130 x10^3/uL (140-400) Neutrophils (%) (Auto) 72 % (31-73) Lymphocytes (%) (Auto) 15 % (24-48) Monocytes (%) (Auto) 9 % (0-9) Eosinophils (%) (Auto) 4 % (0-3) Basophils (%) (Auto) 1 % (0-3) Neutrophils # (Auto) 5.0 x10^3uL (1.8-7.7) Lymphocytes # (Auto) 1.0 x10^3/uL (1.0-4.8) Monocytes # (Auto) 0.6 x10^3/uL (0.0-1.1) Eosinophils # (Auto) 0.3 x10^3/uL (0.0-0.7) Basophils # (Auto) 0.0 x10^3/uL (0.0-0.2) Sodium Level 137 mmol/L (136-145) Potassium Level 4.0 mmol/L (3.5-5.1) Chloride Level 97 mmol/L (98-107) Carbon Dioxide Level 28 mmol/L (21-32) Anion Gap 12 (6-14) Blood Urea Nitrogen 62 mg/dL (8-26) Creatinine 7.9 mg/dL (0.7-1.3) Estimated GFR (Cockcroft-Gault) 6.8 BUN/Creatinine Ratio 8 (6-20) Glucose Level 131 mg/dL (70-99) Calcium Level 8.7 mg/dL (8.5-10.1) Total Bilirubin 0.5 mg/dL (0.2-1.0) Aspartate Amino Transf (AST/SGOT) 11 U/L (15-37) Alanine Aminotransferase (ALT/SGPT) 16 U/L (16-63) Alkaline Phosphatase 85 U/L (46-116) Total Protein 7.3 g/dL (6.4-8.2) Albumin 2.9 g/dL (3.4-5.0) Albumin/Globulin Ratio 0.7 (1.0-1.7) Test 08/11/18 11:43 Glucose (Fingerstick) 163 mg/dL (70-99) Medications Current Medications Apixaban (Eliquis) 5 mg BID PO Last administered on 08/11/18at 08:41; Start 08/09 at 09:00 Carvedilol (Coreg) 6.25 mg BIDWMEALS PO Last administered on 08/10/18 17:27; Start 08/07/18 at 17:00 Furosemide (Lasix) 80 mg BID92 PO Last administered on 08/11/18 08:41; Start at 14:00 Atorvastatin Calcium (Lipitor) 5 mg QHS PO Last administered on 08/10/18 20:38 ; Start 08/07/18 at 21:00 Aspirin (Ecotrin) 81 mg [id number] PO Last administered on 08/11/18 08:41; Start 08/08/18 at 08:00 Aspirin (Ecotrin) 325 mg 1X ONCE PO Last administered on 08/07/18 14:05; Start 08/07/18 at 14:00; Stop 08/07/18 at 14:01; Status DC Acetaminophen/ Hydrocodone Bitart (Lortab 5/325) 1 tab PRN Q6HRS PRN PO MODERATE - SEVERE PAIN Last administered on 08/07/18at 20:42; Start 08/07/18 at 20:30 Guaifenesin (Robitussin Dm) 10 ml PRN Q6HRS PRN PO COUGH Last administered on 20:42; Start 08/07/18 at 20:30; Stop 08/08/18 at 12:03; Status DC Iodixanol (Visipaque 320) 100 ml STK-MED ONCE .ROUTE ; Start 08/08/18 at 07:49; Stop 08/08/18 at 07:50; Status DC Lidocaine HCl (Lidocaine 1% 20ml Vial) 20 ml STK-MED ONCE .ROUTE ; Start at 07:49; Stop 08/08/18 at 07:50; Status DC Heparin Sodium/ Sodium Chloride 1,500 ml @ As Directed STK-MED ONCE .ROUTE ; Start 08/08/18 at 07:49; Stop 08/08/18 at 07:50; Status DC Fentanyl Citrate (Fentanyl 2ml Vial) 100 mcg STK-MED ONCE .ROUTE ; Start at 08:42; Stop 08/08/18 at 08:43; Status DC Midazolam HCl (Versed) 5 mg STK-MED ONCE .ROUTE ; Start 08/08/18 at 08:42; Stop 08/08/18 at 08:43; Status DC Heparin Sodium (Porcine) (Heparin Sodium) 10,000 unit STK-MED ONCE .ROUTE ; Start 08/08/18 at 08:42; Stop 08/08/18 at 08:43; Status DC Verapamil HCl (Verapamil) 5 mg STK-MED ONCE .ROUTE ; Start 08/08/18 at 08:42; Stop 08/08/18 at 08:43; Status DC Nitroglycerin (Nitroglycerin) 200 mcg STK-MED ONCE .ROUTE ; Start 08/08/18 at 08 :42; Stop 08/08/18 at 08:43; Status DC Albuterol Sulfate (Ventolin Neb Soln) 2.5 mg PRN Q4HRS PRN NEB SHORTNESS OF BREATH; Start 08/08/18 at 09:30 Guaifenesin (Robitussin Dm) 10 ml PRN Q6HRS PRN PO COUGH Last administered on 20:22; Start 08/08/18 at 09:30 Acetaminophen (Tylenol) 500 mg PRN Q6HRS PRN PO MILD PAIN / TEMP Last administered on 08/09/18at 20:22; Start 08/08/18 at 09:30 Ondansetron HCl (Zofran) 4 mg PRN Q6HRS PRN IV NAUSEA/VOMITING; Start 08/08/18 at 09:30 Ondansetron HCl (Zofran Odt) 4 mg PRN Q6HRS PRN PO NAUSEA/VOMITING; Start 08/08 at 09:30 Nitroglycerin (Nitroglycerin) 200 mcg 1X ONCE IART Last administered on 10:17; Start 08/08/18 at 09:30; Stop 08/08/18 at 09:43; Status DC Verapamil HCl (Verapamil) 2.5 mg 1X ONCE IART Last administered on 08/08/18at 10:18; Start 08/08/18 at 09:30; Stop 08/08/18 at 09:43; Status DC Heparin Sodium (Porcine) (Heparin Sodium) 2,500 unit 1X ONCE IART Last administered on 08/08/18at 10:19; Start 08/08/18 at 09:30; Stop 08/08/18 at 09:43 ; Status DC Heparin Sodium/ Sodium Chloride (HEPARIN for ARTERIAL LINE FLUSH) 1,000 unit 1X ONCE IART Last administered on 08/08/18 10:16; Start 08/08/18 at 09:30; Stop 08/08/18 at 09:43; Status DC Heparin Sodium/ Sodium Chloride (HEPARIN for ARTERIAL LINE FLUSH) 1,000 unit 1X ONCE IART Last administered on 08/08/18 10:16; Start 08/08/18 at 09:30; Stop 08/08/18 at 09:43; Status DC Midazolam HCl (Versed) 5 mg 1X ONCE IV Last administered on 08/08/18 10:18; Start 08/08/18 at 09:30; Stop 08/08/18 at 09:43; Status DC Fentanyl Citrate (Fentanyl 2ml Vial) 100 mcg 1X ONCE IV Last administered on 10:18; Start 08/08/18 at 09:30; Stop 08/08/18 at 09:43; Status DC Iodixanol (Visipaque 320) 100 ml 1X ONCE IART Last administered on 08/08/18 10:17; Start 08/08/18 at 09:30; Stop 08/08/18 at 09:43; Status DC Lidocaine HCl (Lidocaine 1% 20ml Vial) 20 ml 1X ONCE INJ Last administered on 08/08/18 10:16; Start 08/08/18 at 09:30; Stop 08/08/18 at 09:43; Status DC Info (CONTRAST GIVEN -- Rx MONITORING) 1 each PRN DAILY PRN MC SEE COMMENTS; Start 08/08/18 at 09:30; Stop 08/10/18 at 09:29; Status DC Iodixanol (Visipaque 320) 100 ml STK-MED ONCE .ROUTE ; Start 08/08/18 at 09:47; Stop 08/08/18 at 09:48; Status DC Nitroglycerin (Nitro-Bid Oint) 1 inch STK-MED ONCE .ROUTE ; Start 08/08/18 at 09 :59; Stop 08/08/18 at 10:00; Status DC Nitroglycerin (Nitro-Bid Oint) 1 inch 1X ONCE TP Last administered on at 10:00; Start 08/08/18 at 10:00; Stop 08/08/18 at 10:08; Status DC Sodium Chloride (Normal Saline Flush) 3 ml QSHIFT PRN IV AFTER MEDS AND BLOOD DRAWS; Start 08/08/18 at 10:30 Sodium Chloride 1,000 ml @ 60 mls/hr [id number] IV ; Start 08/08/18 at 10:18; Stop 08/08/18 at 14:17; Status DC Nitroglycerin (Nitrostat) 0.4 mg PRN Q5MIN PRN SL CHEST PAIN; Start 08/08/18 at 10:30 Sodium Chloride 1,000 ml @ 1,000 mls/hr Q1H PRN IV hypotension; Start 08/08/18 at 11:51; Stop 08/08/18 at 17:50; Status DC Sodium Chloride 1,000 ml @ 400 mls/hr Q2H30M PRN IV PATENCY; Start 08/08/18 at 11:51; Stop 08/08/18 at 23:50; Status DC Info (PHARMACY MONITORING -- do not chart) 1 each PRN DAILY PRN MC SEE COMMENTS ; Start 08/08/18 at 12:00; Status UNV Info (PHARMACY MONITORING -- do not chart) 1 each PRN DAILY PRN MC SEE COMMENTS ; Start 08/08/18 at 12:00 Info (Anti-Coagulation Monitoring By Pharmacy) 1 each PRN DAILY PRN MC SEE COMMENTS Last administered on 08/10/18at 12:38; Start 08/08/18 at 12:15 Hydralazine HCl (Apresoline Inj) 10 mg PRN Q4HRS PRN IVP ELEVATED BP, SEE COMMENTS Last administered on 08/08/18at 23:22; Start 08/08/18 at 17:45 Amlodipine Besylate (Norvasc) 2.5 mg DAILY PO Last administered on 08/10/18at 07 :42; Start 08/08/18 at 17:45 Albuterol/ Ipratropium (Duoneb) 3 ml RTQID NEB Last administered on 08/11/18at 11 :52; Start 08/09/18 at 12:00 Throat Lozenges (Cepacol Sore Throat Lozenge) 1 erika PRN Q2HRS PRN PO SORE THROAT; Start 08/09/18 at 12:45 Active Scripts Active Mindy-Maureen Tablet (Folic Acid/Vitamin B Comp W-C) 0.8 Mg Tablet 1 Tab PO DAILY 30 Days Allopurinol 100 Mg Tablet 100 Mg PO DAILY Novolog Flexpen (Insulin Aspart) 100 Unit/1 Ml Insuln.pen 0 Units SQ TIDWMEALS 30 Days Levemir Flextouch (Insulin Detemir) 100 Unit/1 Ml Insuln.pen 20 Units SQ QHS 30 Days Reported Renvela (Sevelamer Carbonate) 800 Mg Tablet 3 Tab PO TID Entresto 49 mg-51 mg Tablet (Sacubitril/Valsartan) 1 Each Tablet 1 Each PO BID Lasix (Furosemide) 40 Mg Tablet 80 Mg PO BID Sensipar (Cinacalcet Hcl) 30 Mg Tablet 60 Mg PO DAILY Eliquis (Apixaban) 5 Mg Tablet 5 Mg PO BID Ferrous Sulfate 325 Mg Tablet 1 Tab PO TID Coreg (Carvedilol) 6.25 Mg Tablet 1 Tab PO BID does not take morning of dialysis Pravastatin Sodium 20 Mg Tablet 20 Mg PO DAILY Vitals/I & O Vital Sign - Last 24 Hours 08/10/18 08/10/18 08/10/18 08/10/18 14:11 16:57 17:27 19:44 Temp 98.0 98.0 Pulse 63 70 Resp 20 B/P (MAP) 147/77 (100) Pulse Ox 99 O2 Delivery Nasal Cannula Nasal Cannula Room Air O2 Flow Rate 2.0 2.0 08/10/18 08/10/18 08/10/18 08/10/18 19:48 20:44 23:12 23:23 Temp 97.8 97.9 97.8 97.9 Pulse 68 58 Resp 18 B/P (MAP) 168/47 (87) 114/58 (76) 114/58 (76) Pulse Ox 98 96 97 O2 Delivery Nasal Cannula Nasal Cannula Nasal Cannula O2 Flow Rate 2.0 2.0 2.0 08/11/18 08/11/18 08/11/18 08/11/18 03:24 07:23 08:00 08:00 Temp 97.9 97.8 97.9 97.8 Pulse 59 68 68 Resp 17 18 B/P (MAP) 111/52 (71) 114/57 (76) 114/57 Pulse Ox 99 99 O2 Delivery Nasal Cannula Nasal Cannula Room Air O2 Flow Rate 2.0 2.0 2.0 08/11/18 08/11/18 08/11/18 08:38 11:00 11:53 Temp 97.6 97.6 Pulse 67 Resp 18 B/P (MAP) 129/64 (85) Pulse Ox 96 100 96 O2 Delivery Nasal Cannula Nasal Cannula Nasal Cannula O2 Flow Rate 2.0 2.0 2.0 Intake and Output 08/10/18 08/10/18 08/11/18 15:00 23:00 07:00 Intake Total 1100 ml 1100 ml 200 ml Balance 1100 ml 1100 ml 200 ml VERENA OROZCO MD Aug 11, 2018 13:52
--- NOTE | 2018-08-11 14:05 | PDOC ---
Renal-Progress Notes Subjective Notes Notes SITTING UP AND FEELING BETTER History of Present Illness Hx of present illness IMPROVED Vitals Vitals Vital Signs Date Time Temp Pulse Resp B/P (MAP) Pulse Ox O2 Delivery O2 Flow Rate FiO2 08/11/18 11:53 96 Nasal Cannula 2.0 08/11/18 11:00 97.6 67 18 129/64 (85) 97.6 Weight Weight [ ] I.O. Intake and Output Intake and Output 08/11/18 07:00 Intake Total 2400 ml Balance 2400 ml Intake Oral 2400 ml Labs Labs Laboratory Tests Test 08/10/18 17:14 08/10/18 20:39 08/11/18 05:00 08/11/18 07:11 Glucose (Fingerstick) 110 mg/dL (70-99) 144 mg/dL (70-99) 139 mg/dL (70-99) White Blood Count 7.0 x10^3/uL (4.0-11.0) Red Blood Count 2.38 x10^6/uL (4.30-5.70) Hemoglobin 7.9 g/dL (13.0-17.5) Hematocrit 23.6 % (39.0-53.0) Mean Corpuscular Volume 99 fL (79-100) Mean Corpuscular Hemoglobin 33 pg (25-35) Mean Corpuscular Hemoglobin Concent 33 g/dL (31-37) Red Cell Distribution Width 14.3 % (11.5-14.5) Platelet Count 130 x10^3/uL (140-400) Neutrophils (%) (Auto) 72 % (31-73) Lymphocytes (%) (Auto) 15 % (24-48) Monocytes (%) (Auto) 9 % (0-9) Eosinophils (%) (Auto) 4 % (0-3) Basophils (%) (Auto) 1 % (0-3) Neutrophils # (Auto) 5.0 x10^3uL (1.8-7.7) Lymphocytes # (Auto) 1.0 x10^3/uL (1.0-4.8) Monocytes # (Auto) 0.6 x10^3/uL (0.0-1.1) Eosinophils # (Auto) 0.3 x10^3/uL (0.0-0.7) Basophils # (Auto) 0.0 x10^3/uL (0.0-0.2) Sodium Level 137 mmol/L (136-145) Potassium Level 4.0 mmol/L (3.5-5.1) Chloride Level 97 mmol/L (98-107) Carbon Dioxide Level 28 mmol/L (21-32) Anion Gap 12 (6-14) Blood Urea Nitrogen 62 mg/dL (8-26) Creatinine 7.9 mg/dL (0.7-1.3) Estimated GFR (Cockcroft-Gault) 6.8 BUN/Creatinine Ratio 8 (6-20) Glucose Level 131 mg/dL (70-99) Calcium Level 8.7 mg/dL (8.5-10.1) Total Bilirubin 0.5 mg/dL (0.2-1.0) Aspartate Amino Transf (AST/SGOT) 11 U/L (15-37) Alanine Aminotransferase (ALT/SGPT) 16 U/L (16-63) Alkaline Phosphatase 85 U/L (46-116) Total Protein 7.3 g/dL (6.4-8.2) Albumin 2.9 g/dL (3.4-5.0) Albumin/Globulin Ratio 0.7 (1.0-1.7) Test 08/11/18 11:43 Glucose (Fingerstick) 163 mg/dL (70-99) Review of Systems Constitutional: yes: weakness, alert, oriented Ears/Nose/Throat: Yes: no symptom reported Eyes: Yes: no symptom reported Pulmonary: Yes dyspnea Cardiovascular: Yes no symptom reported Gastrointestional: Yes: no symptom reported Genitourinary: Yes: no symptom reported Musculoskeletal: Yes: muscle stiffness Skin: Yes no symptom reported Psychiatric/Neurological: Yes: no symptom reported Endocrine: Yes: no symptom reported Physical Exam General Appearance: no apparent distress Skin: warm Respiratory: decreased breath sounds Heart: S1S2 Abdomen: soft, bowel sounds present Genitourinary: bladder flat Neurology: alert, oriented, follow commands Assessment Assessment MP CHF-PROB ACUTE ON CHRONIC SYSTOLIC AND DIASTOLIC CM WITH EF OF 35% DM II HTN ANEMIA ESRD-MWF AFIB PLAN HD TODAY [facility]F TO [facility] WILL FOLLOW SIGIFREDO CLARK MD Aug 11, 2018 14:05
[2018-08-11 14:47] VITALS: BP 113/50
[2018-08-11] MEDS ORDERED: IV NORMAL SALINE 1000ML BAG 1,000 ML IV PRN ×2 (17:32)
[2018-08-11] MEDS ORDERED: diphenhydrAMINE 50 MG/ML VIAL IV PRN ×2 (17:45)
[2018-08-11] MEDS ORDERED: DIALYSIS PATIENT. MC PRN (17:45)
[2018-08-11] MEDS ORDERED: DARBEPOETIN ALFA 60 MCG/0.3 ML DISP.SYRIN. SQ SCH (21:00)
[2018-08-11 22:25] VITALS: BP 97/54
[2018-08-11] MEDS: ATORVASTATIN CALCIUM 10 MG TABLET. PO SCH (22:26)
--- NOTE | 2018-08-11 22:47 | NUR ---
pt in dialysis [id number], pt a/ox3 denies pain at this time assessment complete sandwich given to pt,call light in reach. will cont to monitor pt. pmrn
[2018-08-12 02:16] VITALS: BP 95/40
[2018-08-12 04:14] LABS: ALBUMIN 2.7 g/dL (3.4-5.0); CALCIUM 8.7 mg/dL (8.5-10.1); CREATININE 5.3 mg/dL (0.7-1.3); GFR 10.8; PHOSPHORUS 4.2 mg/dL (2.6-4.7); POTASSIUM 3.6 mmol/L (3.5-5.1)
[2018-08-12 07:00] VITALS: BP 126/46
[2018-08-12] MEDS: IPRATRPIUM/ALBUTEROL 0.5/2.5MG 3 ML NEBU. NEB SCH ×2 (07:06→12:04)
--- NOTE | 2018-08-12 08:19 | NUR ---
SS following up with discharge planning. Pt accepted at [facility]. Physician notified. SS will await discharge orders and will proceed accordingly. Pt's RN notified.
[2018-08-12] MEDS: CARVEDILOL 6.25 MG TABLET. PO SCH (08:56)
[2018-08-12] MEDS: FUROSEMIDE 40 MG TABLET. PO SCH ×2 (08:56→13:00)
[2018-08-12] MEDS: APIXABAN 5 MG TABLET. PO SCH (08:56)
[2018-08-12] MEDS: ASPIRIN ENTERIC COATED 81 MG TABLET.DR. PO SCH (08:56)
[2018-08-12] MEDS: amLODIPine BESYLATE 5 MG TABLET PO SCH (08:57)
[2018-08-12] MEDS ORDERED: AMLO5TAB10 PO (09:38)
--- NOTE | 2018-08-12 09:39 | SNU/HH DC ---
DISCHARGE ORDERS DISCHARGE INFORMATION: DISCHARGE DATE: Aug 12, 2018 FINAL DIAGNOSIS acute on chronic diastolic congestive heart failure CONDITION ON DISCHARGE: Stable CODE STATUS: Code Status: Full MCFP: SNF STAY <30 DAYS: Yes POST DISCHARGE ORDERS: ACTIVITY ORDERS: Resume previous activity, Activity as tolerated WEIGHT BEARING STATUS: Other, see below BATHING ORDERS: Shower-keep dressing dry DIET AFTER DISCHARGE: Renal WOUND/INCISION CARE: Other, see below CHECKS AFTER DISCHARGE: CHECKS AFTER DISCHARGE: Check blood press - daily, Check blood sugar, ac/hs, Weigh Yourself Daily TREATMENT/EQUIPMENT ORDERS: ADAPTIVE EQUIPMENT NEEDED: Cane Physical Therapy For: Evalulation/Treatment Occupational Therapy For: Evaluation/Treatment DISCHARGE MEDICATIONS: Home Meds Active Scripts Amlodipine Besylate (AMLODIPINE BESYLATE) 5 Mg Tablet, 2.5 MG PO DAILY for CHF for 30 Days, #15 TAB Prov:YOSELIN SINGH MD 08/12/18 Folic Acid/Vitamin B Comp W-C (NANDA-YUE TABLET) 0.8 Mg Tablet, 1 TAB PO DAILY for 30 Days, #30 TAB Prov:VICTOR M PINA MD 01/21/18 Allopurinol (ALLOPURINOL) 100 Mg Tablet, 100 MG PO DAILY, #30 TAB Prov:TYRON MENDEZ MD 06/06/17 Insulin Aspart (NOVOLOG FLEXPEN) 100 Unit/1 Ml Insuln.pen, 0 UNITS SQ TIDWMEALS for 30 Days, EACH Prov:ARIELLA ESQUIVEL MD 01/12/17 Insulin Detemir (Levemir Flextouch) 100 Unit/1 Ml Insuln.pen, 20 UNITS SQ QHS for 30 Days, EACH Prov:ARIELLA ESQUIVEL MD 01/12/17 Reported Medications Sevelamer Carbonate (RENVELA) 800 Mg Tablet, 3 TAB PO TID, #810 TAB 3 Refills 06/03/17 Sacubitril/Valsartan (Entresto 49 mg-51 mg Tablet) 1 Each Tablet, 1 EACH PO BID for Heart Failure , TAB 06/03/17 Furosemide (LASIX) 40 Mg Tablet, 80 MG PO BID for heart failure , TAB 06/03/17 Cinacalcet Hcl (SENSIPAR) 30 Mg Tablet, 60 MG PO DAILY, TAB 06/03/17 Apixaban (ELIQUIS) 5 Mg Tablet, 5 MG PO BID, TAB 06/03/17 Ferrous Sulfate (FERROUS SULFATE) 325 Mg Tablet, 1 TAB PO TID, #60 TAB 3 Refills 06/03/17 Carvedilol (COREG ) 6.25 Mg Tablet, 1 TAB PO BID for BP, #180 TAB 1 Refill does not take morning of dialysis 06/03/17 Pravastatin Sodium (PRAVASTATIN SODIUM) 20 Mg Tablet, 20 MG PO DAILY 06/26/13 YOSELIN SINGH MD Aug 12, 2018 09:39
[2018-08-12 11:15] VITALS: BP 144/66
--- NOTE | 2018-08-12 11:15 | NUR ---
SS following up with discharge planning. Discharge orders received. SS phoned and faxed discharge orders to [facility], ; fax [phone]. Pt will discharge today and go to [facility] between 1300 and 1330. [facility] to provide transportation. Pt, pt's RN, and pt's spouse notified.
--- NOTE | 2018-08-12 12:58 | PDOC ---
Renal-Progress Notes Subjective Notes Notes SITTING UP AND FEELING BETTER History of Present Illness Hx of present illness STABLE Vitals Vitals Vital Signs Date Time Temp Pulse Resp B/P (MAP) Pulse Ox O2 Delivery O2 Flow Rate FiO2 08/12/18 12:05 Room Air 08/12/18 11:15 97.9 54 17 144/66 (92) 95 97.9 08/12/18 08:00 2.0 Weight Weight [ ] I.O. Intake and Output Intake and Output 08/12/18 07:00 Intake Total 1610 ml Balance 1610 ml Intake Oral 1610 ml # Voids 3 # Bowel Movements 1 Labs Labs Laboratory Tests Test 08/11/18 17:18 08/12/18 02:35 08/12/18 07:05 08/12/18 11:47 Glucose (Fingerstick) 131 mg/dL (70-99) 160 mg/dL (70-99) 142 mg/dL (70-99) Sodium Level 141 mmol/L (136-145) Potassium Level 3.6 mmol/L (3.5-5.1) Chloride Level 101 mmol/L (98-107) Carbon Dioxide Level 29 mmol/L (21-32) Anion Gap 11 (6-14) Blood Urea Nitrogen 40 mg/dL (8-26) Creatinine 5.3 mg/dL (0.7-1.3) Estimated GFR (Cockcroft-Gault) 10.8 Glucose Level 223 mg/dL (70-99) Calcium Level 8.7 mg/dL (8.5-10.1) Phosphorus Level 4.2 mg/dL (2.6-4.7) Albumin 2.7 g/dL (3.4-5.0) Review of Systems Constitutional: yes: weakness, alert, oriented Ears/Nose/Throat: Yes: no symptom reported Eyes: Yes: no symptom reported Pulmonary: Yes dyspnea Cardiovascular: Yes no symptom reported Gastrointestional: Yes: no symptom reported Genitourinary: Yes: no symptom reported Musculoskeletal: Yes: muscle stiffness Skin: Yes no symptom reported Psychiatric/Neurological: Yes: no symptom reported Endocrine: Yes: no symptom reported Physical Exam General Appearance: no apparent distress Skin: warm Respiratory: decreased breath sounds Heart: S1S2 Abdomen: soft, bowel sounds present Genitourinary: bladder flat Neurology: alert, oriented, follow commands Assessment Assessment MP CHF-PROB ACUTE ON CHRONIC SYSTOLIC AND DIASTOLIC CM WITH EF OF 35% DM II HTN ANEMIA ESRD-MWF AFIB PLAN BEING DISCHARGED TO [facility] HD TOMORROW OP SIGIFREDO CLARK MD Aug 12, 2018 12:58
--- NOTE | 2018-08-12 13:22 | PDOC3 ---
Discharge Summary Visit Information Date of Admission: Aug 07, 2018 Date of Discharge: Aug 12, 2018 Admitting Diagnosis Comment: 1. Acute on chronic systolic CHF: recurrent despite HD with recent LVEF 35-40% , possibly ischemic induced Final Diagnosis 1. Acute on chronic systolic CHF: recurrent despite HD with recent LVEF 35-40% , possibly ischemic induced 2. Hypertension: controlled 3. Hyperlipidemia; lipids on goal 4. Diabetes, II; as per PCP 5. Chronic RLE wound; followed by wound care clinic. No significant LE PAD per recent sono 6. ESRD on HD; MWF 7. Anemia of chronic disease 8. Chronic AFIB; rate controlled. on Eliquis for stroke prevention 9. H/o CVA 10. CAD; noted 50% OM lesion on [facility] 03/2017 cath was done 08/08 Moderate three-vessel coronary disease with no hemodynamically significant lesions. Normal IFR measurement of a obtuse marginal 1 lesion. Elevated left ventricular end-diastolic pressure. CM WITH EF OF 35% Brief Hospital Course Allergies Allergies Coded Allergies Type Severity Reaction Last Updated Verified nut - unspecified Allergy Intermediate 01/13/18 Yes lisinopril Adverse Reaction Intermediate Cough 12/27/16 Yes Vital Signs Vital Signs Date Time Temp Pulse Resp B/P (MAP) Pulse Ox O2 Delivery O2 Flow Rate FiO2 08/12/18 12:05 Room Air 08/12/18 11:15 97.9 54 17 144/66 (92) 95 97.9 08/12/18 08:00 2.0 Physical exam General: Alert, Oriented X3, Cooperative, No acute distress Heart: Regular rate, Other (2+) Lungs: Clear Abdomen: Normal bowel sounds, Soft, No tenderness Extremities: No clubbing, No cyanosis, Other (right foot dressing clean, dry, intact) Skin: No breakdown Lab Results Laboratory Tests Test 08/10/18 17:14 08/10/18 20:39 08/11/18 05:00 08/11/18 07:11 Glucose (Fingerstick) 110 mg/dL (70-99) 144 mg/dL (70-99) 139 mg/dL (70-99) White Blood Count 7.0 x10^3/uL (4.0-11.0) Red Blood Count 2.38 x10^6/uL (4.30-5.70) Hemoglobin 7.9 g/dL (13.0-17.5) Hematocrit 23.6 % (39.0-53.0) Mean Corpuscular Volume 99 fL (79-100) Mean Corpuscular Hemoglobin 33 pg (25-35) Mean Corpuscular Hemoglobin Concent 33 g/dL (31-37) Red Cell Distribution Width 14.3 % (11.5-14.5) Platelet Count 130 x10^3/uL (140-400) Neutrophils (%) (Auto) 72 % (31-73) Lymphocytes (%) (Auto) 15 % (24-48) Monocytes (%) (Auto) 9 % (0-9) Eosinophils (%) (Auto) 4 % (0-3) Basophils (%) (Auto) 1 % (0-3) Neutrophils # (Auto) 5.0 x10^3uL (1.8-7.7) Lymphocytes # (Auto) 1.0 x10^3/uL (1.0-4.8) Monocytes # (Auto) 0.6 x10^3/uL (0.0-1.1) Eosinophils # (Auto) 0.3 x10^3/uL (0.0-0.7) Basophils # (Auto) 0.0 x10^3/uL (0.0-0.2) Sodium Level 137 mmol/L (136-145) Potassium Level 4.0 mmol/L (3.5-5.1) Chloride Level 97 mmol/L (98-107) Carbon Dioxide Level 28 mmol/L (21-32) Anion Gap 12 (6-14) Blood Urea Nitrogen 62 mg/dL (8-26) Creatinine 7.9 mg/dL (0.7-1.3) Estimated GFR (Cockcroft-Gault) 6.8 BUN/Creatinine Ratio 8 (6-20) Glucose Level 131 mg/dL (70-99) Calcium Level 8.7 mg/dL (8.5-10.1) Total Bilirubin 0.5 mg/dL (0.2-1.0) Aspartate Amino Transf (AST/SGOT) 11 U/L (15-37) Alanine Aminotransferase (ALT/SGPT) 16 U/L (16-63) Alkaline Phosphatase 85 U/L (46-116) Total Protein 7.3 g/dL (6.4-8.2) Albumin 2.9 g/dL (3.4-5.0) Albumin/Globulin Ratio 0.7 (1.0-1.7) Test 08/11/18 11:43 08/11/18 17:18 08/12/18 02:35 08/12/18 07:05 Glucose (Fingerstick) 163 mg/dL (70-99) 131 mg/dL (70-99) 160 mg/dL (70-99) Sodium Level 141 mmol/L (136-145) Potassium Level 3.6 mmol/L (3.5-5.1) Chloride Level 101 mmol/L (98-107) Carbon Dioxide Level 29 mmol/L (21-32) Anion Gap 11 (6-14) Blood Urea Nitrogen 40 mg/dL (8-26) Creatinine 5.3 mg/dL (0.7-1.3) Estimated GFR (Cockcroft-Gault) 10.8 Glucose Level 223 mg/dL (70-99) Calcium Level 8.7 mg/dL (8.5-10.1) Phosphorus Level 4.2 mg/dL (2.6-4.7) Albumin 2.7 g/dL (3.4-5.0) Test 08/12/18 11:47 Glucose (Fingerstick) 142 mg/dL (70-99) Laboratory Tests Test 08/11/18 17:18 08/12/18 02:35 08/12/18 07:05 08/12/18 11:47 Glucose (Fingerstick) 131 mg/dL (70-99) 160 mg/dL (70-99) 142 mg/dL (70-99) Sodium Level 141 mmol/L (136-145) Potassium Level 3.6 mmol/L (3.5-5.1) Chloride Level 101 mmol/L (98-107) Carbon Dioxide Level 29 mmol/L (21-32) Anion Gap 11 (6-14) Blood Urea Nitrogen 40 mg/dL (8-26) Creatinine 5.3 mg/dL (0.7-1.3) Estimated GFR (Cockcroft-Gault) 10.8 Glucose Level 223 mg/dL (70-99) Calcium Level 8.7 mg/dL (8.5-10.1) Phosphorus Level 4.2 mg/dL (2.6-4.7) Albumin 2.7 g/dL (3.4-5.0) Brief Hospital Course Mr. Jones presented to the ER today at [place] with acute dyspnea. he feels more swollen in his face and his legs are swollen as well he has HD MWF, has not missed recent admit here < 2 weeks ago, went home 1 week ago, and he has been weak, has had a cough at , and has some worse swelling. He complains of orthopnea, but appears comfortable, no chest pain (copied from h and p) Underwent a cardiac catheterization on 08/08/2018 with the following results: Procedures Left heart catheterization Selective coronary angiogram IFR measurement of the left circumflex vessel. The patient is a 72-year-old male with recurrent episodes of heart failure and mild chest pressure. He has known coronary artery disease. He was readmitted for another episode of shortness of breath and chest pressure. Heart catheterization was recommended to exclude a significant coronary lesion and measurement of his LVEDP. Risks and benefits were discussed with the patient. He agreed to proceed. After informed consent was obtained the patient was brought to the heart catheterization lab. The area of the right radial artery was prepared in the usual manner with Betadine, sterile draping and local anesthetic after an acceptable Braeden's test. A Quick catheter device was used to enter the right radial artery, a wire placed and a 6 Somali sheath placed over the wire. The standard mixture of heparin and antispasm medications was administered through the sheath. With the use of a glide extra-support wire a 6 Somali JL4 diagnostic catheter was advanced to the ascending aorta. It was used to engage the left system and sequential injections in various views were obtained. Using an over the wire exchange a 6 Somali JR4 diagnostic catheter was advanced to the ascending aorta. It was passed to the left ventricle and pressures were obtained. Pullback pressures were also obtained. It was then used to engage the right coronary artery and sequential injections in various views were obtained. In reviewing the pictures patient had a left circumflex obtuse marginal one lesion in the 50% range. However it was somewhat eccentric and with his recurrent chest pressure we proceeded to perform an IFR measurement. A 6 Somali XB 3.5 guide was used to engage the left system after one thousand units of heparin were administered. With standard techniques a pressure wire was placed. Measurements were normal with a IFR 0.94. The wire and catheter were removed. The sheath was removed and sealed with a TR band. The patient was then moved to the holding area in stable condition. Findings. Hemodynamics. LV pressure of 1:30/15, 24. Aortic root pressure 126/68. Coronaries. Left main. The left main was a moderately large vessel. It had no lesions. Left anterior descending. The LAD was a moderate to moderately large vessel with normal distribution. It had a mid lesion in the 25% range. A second diagonal branch had an ostial 40% lesion. Left circumflex. The left circumflex was a moderate size vessel. It a proximal 20% lesion. A large obtuse marginal 1 branch had a 50% lesion which was eccentric. IFR measurement of this lesion was normal at 0.94. Right coronary artery. The right coronary was a moderate size vessel. Had a proximal 30% lesion and a mid 30% lesion. <Conclusion> Moderate three-vessel coronary disease with no hemodynamically significant lesions. Normal IFR measurement of a obtuse marginal 1 lesion. Elevated left ventricular end-diastolic pressure. Signed by : Juma Pagan MD Electronically Approved : 08/08/2018 12:55:19 Patient symptoms improved throughout the hospital stay. Since there was no evidence of flow limiting lesions the patient to continue with his medical management. He did get dialysis prior to discharge. He is hemodynamically stable and in no apparent distress signs and symptoms of alarm discussed prior to discharge patient good spirits to be dismissed he will be following up with wound care on as scheduled Discharge Information Condition at Discharge: Improved Follow Up: Weeks Disposition/Orders: D/C to Another Facility Scheduled Allopurinol (Allopurinol) 100 Mg Tablet, 100 MG PO DAILY, #30 Prescribed by: TYRON MENDEZ MD on 06/06/17 1249 Last Action: Reviewed on 08/07/18 1246 by ERIC MENESES Amlodipine Besylate (Amlodipine Besylate) 5 Mg Tablet, 2.5 MG PO DAILY for CHF for 30 Days, #15 Prescribed by: YOSELIN SINGH MD on 08/12/18 6939 Apixaban (Eliquis) 5 Mg Tablet, 5 MG PO BID, (Reported) Entered as Reported by: YOLANDA JOY on 06/03/17 0489 Last Action: Continued on 08/07/18 1336 by JODI OLIVEIRA Carvedilol (Coreg ) 6.25 Mg Tablet, 1 TAB PO BID for BP, #180 Ref 1 (Reported ) does not take morning of dialysis Entered as Reported by: YOLANDA JOY on 06/03/171705 Last Action: Continued on 08/07/181334 by JODI OLIVEIRA Cinacalcet Hcl (Sensipar) 30 Mg Tablet, 60 MG PO DAILY, (Reported) Entered as Reported by: YOLANDA JOY on 06/03/171718 Last Action: Reviewed on 08/07/18 124 by ERIC MENESES Ferrous Sulfate (Ferrous Sulfate) 325 Mg Tablet, 1 TAB PO TID, #60 Ref 3 ( Reported) Entered as Reported by: YOLANDA JOY on 06/03/171707 Last Action: Reviewed on 08/07/181245 by ERIC MENESES Folic Acid/Vitamin B Comp W-C (Mindy-Maureen Tablet) 0.8 Mg Tablet, 1 TAB PO DAILY for 30 Days, #30 Prescribed by: VICTOR M PINA on 01/21/18 1306 Last Action: Reviewed on 08/07/18 124 by ERIC MENESES Furosemide (Lasix) 40 Mg Tablet, 80 MG PO BID for heart failure , (Reported) Entered as Reported by: YOLANDA JOY on 06/03/171718 Last Action: Continued on 08/07/181335 by JODI OLIVEIRA Insulin Aspart (Novolog Flexpen) 100 Unit/1 Ml Insuln.pen, 0 UNITS SQ TIDWMEALS for 30 Days Prescribed by: ARIELLA ESQUIVEL MD on 01/12/17 161 Last Action: Reviewed on 08/07/18 124 by ERIC MENESES Insulin Detemir (Levemir Flextouch) 100 Unit/1 Ml Insuln.pen, 20 UNITS SQ QHS for 30 Days Prescribed by: ARIELLA ESQUIVEL MD on 01/12/17 161 Last Action: Reviewed on 08/07/181245 by ERIC MENESES Pravastatin Sodium (Pravastatin Sodium) 20 Mg Tablet, 20 MG PO DAILY, (Reported) Entered as Reported by: Rigo Moran on 06/26/13 3589 Last Action: Converted on 08/07/181334 by JODI OLIVEIRA Sacubitril/Valsartan (Entresto 49 mg-51 mg Tablet) 1 Each Tablet, 1 EACH PO BID for Heart Failure , (Reported) Entered as Reported by: YOLANDA JOY on 06/03/171718 Last Action: Converted on 08/07/18 1336 by JODI OLIVEIRA Sevelamer Carbonate (Renvela) 800 Mg Tablet, 3 TAB PO TID, #810 Ref 3 (Reported) Entered as Reported by: YOLANDA JOY on 06/03/171718 Last Action: Reviewed on 08/07/18 1246 by YOSELIN ROMERO MD Aug 12, 2018 13:22
--- NOTE | 2018-08-12 14:19 | NUR ---
Report given to CALI Temple at [facility] regarding Mr. Jones at 1414
--- NOTE | 2018-08-12 14:25 | NUR ---
Discharge Note: DOROTHEA PUGA [address] Discharge instructions and discharge home medications reviewed with Other facility and a copy given. All questions have been answered and understanding verbalized. The following instructions and handouts were given: Discontinued no lines at discharge. Patient discharged to [facility] via transport prvided by them. Report given to CALI Temple.
[2018-08-12] MEDS: ANTI-COAG MONITOR BY PHARMACY. MC PRN (15:20)
== END 2018-08-12 14:10 | DRG 286 ==
LOC: 6 SOUTH 12:28 → 2 SOUTH 08-08 10:29
PROVIDERS: ADMIT Internal Medicine; ATTEND Internal Medicine
PROC: 4A023N7 Measurement of Cardiac Sampling and Pressure, Left Heart, Percutaneous Approach (ICD-10-PCS; principal; 2018-08-08)
PROC: B2111ZZ Fluoroscopy of Multiple Coronary Arteries using Low Osmolar Contrast (ICD-10-PCS; 2018-08-08)
PROC: 4A033BC Measurement of Arterial Pressure, Coronary, Percutaneous Approach (ICD-10-PCS; 2018-08-08)
PROC: 5A1D70Z Performance of Urinary Filtration, Intermittent, Less than 6 Hours Per Day (ICD-10-PCS; 2018-08-08)
PROC: 5A1D70Z Performance of Urinary Filtration, Intermittent, Less than 6 Hours Per Day (ICD-10-PCS; 2018-08-11)
DX: I13.2 Hypertensive heart and chronic kidney disease with heart failure and with stage 5 chronic kidney disease, or end stage renal disease (principal); N18.6 End stage renal disease; I50.43 Acute on chronic combined systolic (congestive) and diastolic (congestive) heart failure; E11.22 Type 2 diabetes mellitus with diabetic chronic kidney disease; I42.9 Cardiomyopathy, unspecified; I25.10 Atherosclerotic heart disease of native coronary artery without angina pectoris; E78.5 Hyperlipidemia, unspecified; I48.2 Chronic atrial fibrillation; D63.8 Anemia in other chronic diseases classified elsewhere; M19.90 Unspecified osteoarthritis, unspecified site; G47.00 Insomnia, unspecified; S80.921D Unspecified superficial injury of right lower leg, subsequent encounter; X58.XXXD Exposure to other specified factors, subsequent encounter; Z99.2 Dependence on renal dialysis; Z88.8 Allergy status to other drugs, medicaments and biological substances; Z91.018 Allergy to other foods; Z85.528 Personal history of other malignant neoplasm of kidney; Z86.73 Personal history of transient ischemic attack (TIA), and cerebral infarction without residual deficits; Z83.3 Family history of diabetes mellitus; Z82.49 Family history of ischemic heart disease and other diseases of the circulatory system
CPT/HCPCS: 36415; 71045; 80048; 80053; 80069; 82962; 83735; 84484; 85025; 85027; 85610; 87804; 93005; 93458; 93571; 94640; 94760; 99152; 99153; C1769; C1887; C1892; J0360; J0881; J1644; J2250; J3010; J3490; J7620; Q9967; 92610; 97110; 97116

== ENCOUNTER → 2019-01-05 | Day surgery (SDC) | payer MEDICARE, BC ==
[~2019-01-05] VITALS: Ht 180.3 cm; Wt 113.4 kg
[~2019-01-05] MED LIST changes: +AMLO5TAB10 PO; +BACITRACIN 50,000 UNIT in IV NORMAL SALINE 500ML BAG 500 ML IRR ONE; +BUPIVACAINE-EPI 0.5%-1:200000 MPF 30 ML VIAL. INJ ONE; +CARV3.123 PO; +CHLORHEXIDINE 0.12% 15 ML MOUTHWASH. ONE; +DEXAMETHASONE SOD PHOS 4 MG/ML VIAL ONE; +GELATIN SPONGE SIZE 100. ONE; +GLYCOPYRROLATE 1 MG/5 ML VIAL. ONE; +HYDROmorphone 2 MG/ML VIAL IV PRN; +INSULIN LISPRO 100 UNIT/ML 3ML VIAL for OP,RR ONLY. SQ PRN; +IV NORMAL SALINE 1000ML BAG 1,000 ML IV SCH; +LIDOCAINE 1% PF 2 ML VIAL. ID PRN; +LIDOCAINE 2% PF 5 ML VIAL. ONE; +MORPHINE SULFATE 2 MG/ML VIAL. IV PRN; +NEOSTIGMINE METHYLSULFATE 5 MG/5 ML SYRINGE. ONE; +ONDANSETRON PF 4 MG/2 ML VIAL. IV PRN; +ONDANSETRON PF 4 MG/2 ML VIAL. ONE; +PROCHLORPERAZINE 10 MG/2 ML VIAL. IV PRN; +PROPOFOL 20 ML IV ONE; +ROCURONIUM 50 MG/5 ML VIAL. ONE; +SACU1TAB PO; +SEVOFLURANE 61 TO 120 MINUTES. IH ONE; +ceFAZolin 2GM PREMIX 2 GM/50 ML BAG IV ONE; +fentaNYL PF VIAL 100 MCG/2 ML VIAL IV PRN
[2019-01-05 10:40] LABS: POTASSIUM 4.2 mmol/L (3.5-5.1)
--- NOTE | 2019-01-05 13:04 | PDOC4 ---
OPERATIVE NOTE Date: Date: Jan 05, 2019 Pre-Op Diagnosis: ESRD Caries 5,18,19,,,32 Post-Op Diagnosis: same Procedure Performed: sx ext 5,18,19,,,32 Surgeon: garfield Anesthesia Type: wander Blood Loss: 20 Specimans Obtained: none Teeth disposed of in OR Findings: see dictation Complications: none noted Operative Note: see dictation DORIS AGUIRRE DMD Jan 05, 2019 13:04
--- NOTE | 2019-01-05 13:38 | OP ---
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 ATTENDING PHYSICIAN: Tyler Aguirre DMD PREOPERATIVE DIAGNOSES: End-stage renal disease, multiple comorbidities and caries of teeth 5, 18, 19, 27, 31 and 32. POSTOPERATIVE DIAGNOSES: End-stage renal disease, multiple comorbidities and caries of teeth 5, 18, 19, 27, 31 and 32. PROCEDURES PERFORMED: Surgical removal of teeth numbers 5, 18, 19, 27, 31, and 32. BRIEF HISTORY: The patient was referred to our clinic by Dr. Bhagat, deemed these teeth nonrestorable. The patient is end-stage renal disease and on dialysis 3 times a week, Saturday, and Saturday. Considering his multiple comorbidities and the acuity of the need of care, the patient's desire for sedation in the setting of care was escalated to the OR for the patient's safety. Permit was obtained. History and physical was performed and the patient demonstrated understanding. ESTIMATED BLOOD LOSS: 20 mL. DRAINS PLACED: None. SPECIMEN SENT: None. Teeth were disposed in OR. COMPLICATIONS: None noted at the time of surgery: PROCEDURE IN DETAIL: After the history and physical was updated in the preoperative holding area, the patient was transported by the Anesthesia Service to the operating suite, placed in the supine position. General anesthesia was induced. The patient was intubated with an oral intubation, which was secured to the upper left face without complication. Surgery began with the placement of a moistened throat pack. It was placed and allowed to cleanse the timeout was initiated. All perioperative staff was in agreeance. Surgery began with placement of 20 mL of 0.5% Marcaine, 1:200,000 epinephrine into the proposed surgical areas. An additional 5 mL were administered at the culmination of the procedure. A 15 blade was brought to the field to reflect a buccal full thickness mucoperiosteal flap distal. Hockey stick was performed in the lower left and lower right sites. Teeth numbers 5, 27, 31, 32, 18 and 19 were luxated, elevated and extracted without complication with hand instruments elevators and forceps. Minor alveoloplasty was performed at each site with rongeurs, bone file and curettage with copious normal sterile saline irrigation. Each extraction site was packed with Gelfoam and oversewn with 3-0 chromic gut sutures in a running locked fashion and multiple [id number] in order to obtain good hemostasis. Oral cavity was then lavaged and suctioned. The moistened throat pack was removed. An OG was passed and the stomach was decompressed. The patient was then returned to the care of Anesthesia, where he was awakened and extubated without complication and transported to the PACU in stable condition. TYLER AGUIRRE DMD DR: Thomas JOB#: [id number] / [id number]
[2019-01-05 14:16] VITALS: BP 120/71
== END ==
LOC: SURG 09:10
PROVIDERS: ATTEND Dentist Oral and Maxillofacial Surgery
DX: K02.9 Dental caries, unspecified (principal); E11.22 Type 2 diabetes mellitus with diabetic chronic kidney disease; I13.2 Hypertensive heart and chronic kidney disease with heart failure and with stage 5 chronic kidney disease, or end stage renal disease; I50.9 Heart failure, unspecified; N18.6 End stage renal disease; J44.9 Chronic obstructive pulmonary disease, unspecified; G47.33 Obstructive sleep apnea (adult) (pediatric); F41.9 Anxiety disorder, unspecified; F32.9 Major depressive disorder, single episode, unspecified; Z79.84 Long term (current) use of oral hypoglycemic drugs
CPT/HCPCS: 36415; 41874; 80051; 82962; A7015; J1100; J2001; J2405; J2704; J2710; J3490; J7040; J0696

== ENCOUNTER → 2019-05-19 | Outpatient (CLI) | payer MEDICARE, BC ==
[2019-03-28 09:10] VITALS: BP 165/72
[~2019-05-19] MED LIST changes: -BACITRACIN 50,000 UNIT in IV NORMAL SALINE 500ML BAG 500 ML IRR ONE; -BUPIVACAINE-EPI 0.5%-1:200000 MPF 30 ML VIAL. INJ ONE; +CALC0.25 PO; +CARV6.2511 PO; -CHLORHEXIDINE 0.12% 15 ML MOUTHWASH. ONE; -DEXAMETHASONE SOD PHOS 4 MG/ML VIAL ONE; +ESCITALOPRAM OX10 MG PO; -GELATIN SPONGE SIZE 100. ONE; -GLYCOPYRROLATE 1 MG/5 ML VIAL. ONE; +HYDR-2761 PO; -HYDROmorphone 2 MG/ML VIAL IV PRN; -INSULIN LISPRO 100 UNIT/ML 3ML VIAL for OP,RR ONLY. SQ PRN; -IV NORMAL SALINE 1000ML BAG 1,000 ML IV SCH; -LIDOCAINE 1% PF 2 ML VIAL. ID PRN; -LIDOCAINE 2% PF 5 ML VIAL. ONE; -MORPHINE SULFATE 2 MG/ML VIAL. IV PRN; -NEOSTIGMINE METHYLSULFATE 5 MG/5 ML SYRINGE. ONE; -ONDANSETRON PF 4 MG/2 ML VIAL. IV PRN; -ONDANSETRON PF 4 MG/2 ML VIAL. ONE; +POTA20TA4 PO; -POTA20TA82 PO; -PROCHLORPERAZINE 10 MG/2 ML VIAL. IV PRN; -PROPOFOL 20 ML IV ONE; -ROCURONIUM 50 MG/5 ML VIAL. ONE; -SEVOFLURANE 61 TO 120 MINUTES. IH ONE; -ceFAZolin 2GM PREMIX 2 GM/50 ML BAG IV ONE; -fentaNYL PF VIAL 100 MCG/2 ML VIAL IV PRN
--- NOTE | 2019-05-20 12:55 | RAD ---
Examination: CT THORACIC SPINE WO CONTRAST History: T11-T12 fracture Comparison/Correlation: 03/23/2019 CT thoracic spine without contrast Findings: Axial images of the thoracic spine were obtained without contrast. Sagittal and coronal reformatted images were provided. Kyphosis of the thoracic spine noted. Ossification along the anterior aspect of the thoracic spine is noted from T3 to T10 anteriorly. Fracture again is seen throughout the T11-12 anterior ossification. Oblique fracture involving the T12 vertebral body posteriorly is present extending from the superior endplate to the posterior cortex. Slight widening of the fracture is evident. Mild callus formation noted. Slight offset of the superior endplate of T12 is noted in the interval. Impression: T12 vertebral body fracture line is slightly widened with callus formation. Slight offset of the T12 superior endplate at the fracture site. No change in fracture at the T11-12. No change in alignment. Ossification along the anterior aspect of multiple consecutive thoracic spine vertebral bodies raises question of diffuse radiographic skeletal hyperostosis. PQRS Compliance Statement: One or more of the following individualized dose reduction techniques were utilized for this examination: 1. Automated exposure control 2. Adjustment of the mA and/or kV according to patient size 3. Use of iterative reconstruction technique Electronically signed by: Freddie Leos MD (05/20/2019 12:52 PM) [facility]
== END | disposition home or self-care (01) ==
LOC: CT 12:53
PROVIDERS: ATTEND Neurological Surgery
DX: S22.088D Other fracture of T11-T12 vertebra, subsequent encounter for fracture with routine healing (principal); M25.78 Osteophyte, vertebrae; M40.294 Other kyphosis, thoracic region; X58.XXXD Exposure to other specified factors, subsequent encounter
CPT/HCPCS: 72128

== ENCOUNTER 2020-08-03 20:38 | Inpatient (IN) | payer MEDICARE, BC ==
[~2020-08-03] VITALS: Ht 180.3 cm; Wt 96.3 kg
[~2020-08-03 20:38] MED LIST changes: +AMLO-186 PO; -AMLO5TAB10 PO; -CINA30TA2 PO; +CINA30TA24 PO
--- NOTE | 2020-08-03 20:40 | NUR ---
The patient, DOROTHEA PUGA, 74 y/o, M with Esophageal stricture admitted by VERENA OROZCO MD,Patient was given written information regarding hospital policies, unit procedures and contact persons. See admission assessment/documentation. Valuables were checked and Patient stated he has 30-40 dollars in pants pocket and declined lock up with security, .
[2020-08-03 21:00] VITALS: BP 87/55
[2020-08-03 23:00] VITALS: BP 95/48
[2020-08-04 03:00] VITALS: BP 110/53
[2020-08-04 07:00] VITALS: BP 103/49
--- NOTE | 2020-08-04 08:45 | PDOC1 ---
History and Physical Date of Admission Date of Admission DATE: 08/04/20 TIME: 08:45 Identification/Chief Complaint Chief Complaint UNABLE TO SWALLW SOLIDS X 2 DAYS History of Present Illness History of Present Illness 74 yo male admitted for complains of vomiting.poor recall. pt was at [facility] and transferred to [facility] for further GI workup. Reports that in the last 3 dayS he has been having episode that when he eats just even a few bites he complained that it gets stuck midway and eventually vomits He has been able to eat nor drink adequately due to the vomiting. He does occasionally has epigastric discomfort. No fever or chills THIS STARTED after ea ting meat 2 days ago Past Medical History Past Medical History Past Medical History Cardiovascular: AFIB, CAD, CHF, HTN, PA, Hyperlipidemia, cardiomyopathy Pulmonary: Pneumonia CENTRAL NERVOUS SYSTEM: CVA GI: No pertinent hx Heme/Onc: Anemia NOS Psych: No pertinent hx Musculoskeletal: Osteoarthritis Rheumatologic: Gout Infectious disease: No pertinent hx Renal/: Chronic renal failure, Other Endocrine: Diabetes Past Surgical History Past Surgical History: Cataract Removal, Other Family History Family History: Diabetes, Heart Disease, Hypertension Social History ALCOHOL: none Drugs: None Cardiovascular: AFIB, CAD, CHF, HTN, PA, Hyperlipidemia Pulmonary: Pneumonia CENTRAL NERVOUS SYSTEM: CVA GI: No pertinent hx Heme/Onc: Anemia NOS Psych: No pertinent hx Rheumatologic: Gout Infectious disease: No pertinent hx Renal/: Chronic renal failure, Other Endocrine: Diabetes, Hyperparathyroidism Past Surgical History Past Surgical History: Cataract Removal, Other Family History Family History: Diabetes, Heart Disease, Hypertension Social History Smoke: No ALCOHOL: none Drugs: None Current Medications Current Medications Active Scripts Active Hydrocodone-Apap 5-325 (Hydrocodone Bit/Acetaminophen) 1 Tab Tablet 1 Tab PO PRN Q6HRS PRN 6 Days Reported Escitalopram Oxalate 10 Mg Tablet 10 Mg PO DAILY Calcitriol 0.25 Mcg Capsule 0.25 Mcg PO DAILY Lasix (Furosemide) 40 Mg Tablet 40 Mg PO DAILYWLUN Carvedilol (Carvedilol) 6.25 Mg Tablet 6.25 Mg PO BIDWMEALS Potassium Chloride 20 Meq Tablet.er 20 Meq PO BID Novolog (Insulin Aspart) 100 Unit/1 Ml Cartridge 20 Unit SQ TIDWMEALS Levemir (Insulin Detemir) 100 Unit/1 Ml Vial 10 Unit SQ QHS Allopurinol 100 Mg Tablet 2 Tab PO DAILY Entresto 24 mg-26 mg Tablet (Sacubitril/Valsartan) 1 Each Tablet 1 Each PO BID Renvela (Sevelamer Carbonate) 800 Mg Tablet 4 Tab PO TID Lasix (Furosemide) 40 Mg Tablet 80 Mg PO BID Eliquis (Apixaban) 5 Mg Tablet 5 Mg PO BID Ferrous Sulfate 325 Mg Tablet 1 Tab PO TID Pravastatin Sodium 20 Mg Tablet 20 Mg PO DAILY Allergies Allergies: Coded Allergies: nut - unspecified (Verified Allergy, Intermediate, 01/05/19) lisinopril (Verified Adverse Reaction, Intermediate, Cough, 01/05/19) ROS Review of System unable to swallow solids 14 pt ros otherwise neg General: YES: Fatigue PSYCHOLOGICAL ROS: No: Anxiety, Behavioral Disorder, Concentration difficultie, Decreased libido, Depression, Disorientation, Hallucinations, Hostility, Irritablity, Memory difficulties, Mood Swings, Obsessive thoughts, Physical abuse, Sexual abuse, Sleep disturbances, Suicidal ideation, Other HEENT: No: Heacaches, Visual Changes, Hearing change, Nasal congestion, Nasal discharge, Oral lesions, Sinus pain, Sore Throat, Epistaxis, Sneezing, Snoring, Tinnitus, Vertigo, Vocal changes, Other Hematological and Lymphatic: No: Bleeding Problems, Blood Clots, Blood Transfusions, Brusing, Night Sweats, Pallor, Swollen Lymph Nodes, Other Breast: No New/Changing Breast Lumps, No Nipple changes, No Nipple discharge, No Other Respiratory: No: Cough, Hemoptysis, Orthopnea, Pleuritic Pain, Shortness of breath, SOB with excertion, Sputum Changes, Stridor, Tachypnea, Wheezing, Other Cardiovascular: No Chest Pain, No Palpitations, No Orthopnea, No Paroxysmal Noc. Dyspnea, No Edema, No Lt Headedness, No Other Gastrointestinal: Yes Other (dysphagia) Genitourinary: No Dysuria, No Frequency, No Incontinence, No Hematuria, No Retention, No Discharge, No Urgency, No Pain, No Flank Pain, No Other, No , No , No , No , No , No , No Musculoskeletal: Yes Joint Stiffness; No Gait Disturbance, No Joint Pain, No Joint Swelling, No Muscle Pain, No Muscular Weakness, No Pain In:, No Swelling In:, No Other Neurological: No Behavorial Changes, No Bowel/Bladder ControlChng, No Confusion, No Dizziness, No Gait Disturbance, No Headaches, No Impaired Coord/balance, No Memory Loss, No Numbness/Tingling, No Seizures, No Speech Prob lems, No Tremors, No Visual Changes, No Weakness, No Other Skin: Yes Dry Skin; No Eczema, No Hair Changes, No Lumps, No Mole Changes, No Mottling, No Nail Changes, No Pruritus, No Rash, No Skin Lesion Changes, No Other, No Acne Physical Exam General: Alert, Oriented X3, Cooperative, No acute distress HEENT: PERRLA Lungs: Clear to auscultation, Normal air movement Heart: RRR, no thrills, no gallops Breasts: Not examined Abdomen: Normal bowel sounds, Soft, No tenderness Rectal Exam: not examined PELVIC: Examination not indicated Extremities: No cyanosis Neuro: Normal speech, Cranial nerves 3-12 NL Psych/Mental Status: Mental status NL, Mood NL Vitals Vitals Vital Signs Date Time Temp Pulse Resp B/P (MAP) Pulse Ox O2 Delivery O2 Flow Rate FiO2 08/04/20 07:00 97.9 84 17 103/49 (67) 94 Room Air 97.9 Images Images Mitral Valve MV E Velocity 104.2cm/s MV E Peak Gr. 87mmHg MV DECEL TIME 124ms MV A Velocity 16.5cm/s E/A Ratio 6.3 MV A Duration 76ms Tricuspid Valve TR P. Velocity 282cm/s RAP ESTIMATE 15mmHg TR Peak Gr. 32mmHg RVSP 47mmHg LEFT VENTRICLE The Left Ventricle is mildly dilated. There is mild to moderate concentric left ventricular hypertrophy. The ejection fraction is severely impaired. EF 25% There is global hypokinesis of the left ventricle. Septal motion suggestive of conduction defect. Transmitral Doppler flow pattern is abnormal. RIGHT VENTRICLE The right ventricle is mildly dilated. There is normal right ventricular wall thickness. RV Systolic function is mildly reduced. ATRIA The left atrium is severely dilated. The right atrium is severely dilated. The interatrial septum is intact with no evidence for an atrial septal defect or patent foramen ovale as noted on 2-D or Doppler imaging. AORTIC VALVE The aortic valve is trileaflet. The left coronary cusp is calcified and fixed. Doppler and Color Flow revealed no significant aortic regurgitation. There is no significant aortic valvular stenosis. There is no aortic valvular vegetation. MITRAL VALVE The mitral valve is mildly thickened. There is no evidence of mitral valve prolapse. There is no mitral valve stenosis. Doppler and Color-flow revealed mild mitral regurgitation. TRICUSPID VALVE The tricuspid valve is normal in structure and function. Doppler and Color Flow revealed trace to mild tricuspid regurgitation. There is moderate pulmonary hypertension. The PA pressure was estimated at 47 mmHg. There is no tricuspid valve prolapse or vegetation. There is no tricuspid valve stenosis. PULMONIC VALVE The pulmonic valve is not well visualized. GREAT VESSELS The aortic root is normal in size. The ascending aorta is normal in size. The IV C is dilated and collapses <50% with inspiration suggestive of volume overload. PERICARDIAL EFFUSION There is a trace pericardial effusion. Critical Notification Critical Value: No <Conclusion> Doppler and Color Flow revealed trace to mild tricuspid regurgitation. There is moderate pulmonary hypertension. The PA pressure was estimated at 47 mmHg. The IVC is dilated and collapses <50% with inspiration suggestive of volume overload. The ejection fraction is severely impaired. EF 25% There is global hypokinesis of the left ventricle. Septal motion suggestive of conduction defect. Signed by : Art Romano, Electronically Approved : 01/02/2019 13:57:22 VTE Prophylaxis Ordered VTE Prophylaxis Devices: No VTE Pharmacological Prophylaxi: Yes Assessment/Plan Assessment/Plan impression acute esophageal obstruction Falls Shortness of breath/ cardiomyopathy moderate pulmonary hypertension. PA pressure was estimated at 47 mmHg.ejection fraction is severely impaired. EF 25% recent echo global hypokinesis of the left ventricle. Htn - controlled dm2 controlled ESRD on HD MWF paroxysmal afib on eliquis, carvedilol h/o left renal Ca s/p nephrectomy rt toe chronic wound plan admit nephrology consult gi consult npo dvt prophylaxis cardiology consult tele bed EGD D/W RN Justifications for Admission General Conditions Other justification for admit: SWALLOWING PROBLEMS Other Justification VERENA OROZCO MD Aug 04, 2020 08:45
--- NOTE | 2020-08-04 08:58 | PDOC2 ---
MARY ELLEN HOOD 08/04/20 0858: GI CONSULT Date of Service: DATE: 08/04/20 TIME: 08:58 Reason For Consult: esophageal stricture HPI: HPI: 74 y/o male sent from [facility]. Reviewed notes in paper chart - evaluated there for dysphagia and vomiting - was not tolerating own secretions at [facility] ER. Labs noted Hgb 10.3, MCV 103, BUN 19, Cr 3.4, normal LFTs and lipase. CT C/A/P noted cardiomegaly w/ trace pericardial effusion, trace left pelural effusion, no acute process in abd or pelv, right renal cystic lesions. Also noted normal pancreas and liver w/ distended thin-walled GB. Currently w/o concerns from nursing. He is a terrible historian and currently alone in room. Now tolerating secretions. Cannot describe when dysphagia began - I asked if it started while he was eating and he said "it's hard to say." Denies similar symptoms in the past. No odynophagia. Denies n/v. No abd pain, diarrhea, constipation, or bleeding. Also denies reflux. Tells me he lives with his . Doesn't know what hospital he's at, says the year is 2011. Doesn't recall past EGD or colonoscopy. H/o A Fib on Eliquis - "oh I couldn't tell ya that." Med list includes iron. Past imaging notes diverticulosis and ?GB polyp vs stone. 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 PMH: PMH: per chart - A Fib, CHF, NICM, HTN, HLD, DM, CAD, pneumonia, CVA w/ left-sided weakness, OA, anxiety, ESRD on HD, RCC s/p left nephrectomy, I&D toe FH: Family History: Cancer Social History: Smoke: Quit ROS: Difficult to obtain, see HPI. Vitals: Vitals: Vital Signs Date Time Temp Pulse Resp B/P (MAP) Pulse Ox O2 Delivery O2 Flow Rate FiO2 08/04/20 07:00 97.9 84 17 103/49 (67) 94 Room Air 97.9 Allergies: Coded Allergies: nut - unspecified (Verified Allergy, Intermediate, 01/05/19) lisinopril (Verified Adverse Reaction, Intermediate, Cough, 01/05/19) Imaging: Imaging: per HPI PE: GEN: NAD HEENT: Atraumatic, PERRL LUNGS: clear anteriorly, poor effort HEART: irregularly irregular ABD: NABS, S/ND/NT EXTREMITY: No edema SKIN: dry NEURO/PSYCH: pleasnatly confused A/P: A/P: Dysphagia Macrocytic anemia - normal B12 in 2016 H/o A FIb on Eliquis, NICM, ESRD on HD, h/o RCC, dementia -- D/w Dr. Burnette - EGD at 1:00 p.m. today pending rapid COVID testing per protocol - may need to speak w/ family for consent. 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 No IVF ordered - d/w nurse - defer to Dr. Kaufman. D/w Valorie/cardiology - will transfer to a unit w/ cardiac monitoring after EGD. KELLI BURNETTE MD 08/04/20 1305: MARY ELLEN HOOD Aug 04, 2020 08:58 KELLI BURNETTE MD Aug 04, 2020 13:05
[2020-08-04] MEDS: PANTOPRAZOLE IV PUSH 40 MG VIAL. IVP SCH (09:18)
--- NOTE | 2020-08-04 09:53 | NUR ---
IRENE following. Discussed with RN, pt from home with , room air, NPO, pt having an EGD at 1500 today. Pt does dialysis MWF at [facility] (ph: [phone]). IRENE will continue to follow. Addendum: 08/04/20 at 1623 by FLORIDALMA BONILLA Pt transferred to [facility]. IRENE to fill in Martine VERNON tomorrow morning (08/05/20).
[2020-08-04 11:00] VITALS: BP 106/53
[2020-08-04] MEDS ORDERED: FURO-68 PO (11:36)
--- NOTE | 2020-08-04 11:56 | PDOC2 ---
JODI OLIVEIRA PRODUCTION CONTROL COORDINATOR 08/04/20 1156: CARDIAC CONSULT DATE OF CONSULT Date of Consult DATE: 08/04/20 TIME: 11:37 REASON FOR CONSULT Reason for Consult: Cardiomyopathy REFERRING PHYSICIAN Referring Physician: Fullbright SOURCE Source: Chart review, Patient HISTORY OF PRESENT ILLNESS HISTORY OF PRESENT ILLNESS This is a pleasant 74 yo male admitted for complains of vomiting. He is a poor historian with poor recall. Spouse was at the bedside and discussed symptom details. Initially pt was at [facility] and transferred to [facility] for further GI workup. Reports that in the last 3 dasy he has been having episode that when he eats just even a few bites he complained that it gets stuck midway and eventually vomits it out. He has been able to eat nor drink adequately due to the vomiting. He does occasionally has epigastric discomfort. No fever or chills. He has been having loose stools as well for about 2 months now. No new surgeries recently. Denies any SOA, chest pain and no leg edema. Also when he takes his pills sometimes he is not able to swallow it. PAST MEDICAL HISTORY Cardiovascular: AFIB, CAD, CHF, HTN, Hyperlipidemia, Valve insufficiency, Pulmonary hypertension, Other (NICM; PAD) Pulmonary: Other (SERENITY- noncompliant with CPAP) CENTRAL NERVOUS SYSTEM: CVA GI: Other (diarrhea) Heme/Onc: Anemia NOS Hepatobiliary: No pertinent hx Psych: No pertinent hx Musculoskeletal: Osteoarthritis Rheumatologic: Gout Infectious disease: No pertinent hx ENT: Other (cataract) Renal/: Chronic renal failure Endocrine: Diabetes (2), Hyperparathyroidism Dermatology: No pertinent hx PAST SURGICAL HISTORY Past Surgical History: Cataract Removal, Other (unilateral nephrectomy; ILR placement; LAV fistula) FAMILY HISTORY Family History: Diabetes SOCIAL HISTORY Smoke: No ALCOHOL: none Drugs: None Lives: with Family CURRENT MEDICATIONS CURRENT MEDICATIONS Current Medications Medications (Trade) Dose Ordered Sig/[place]anza Route PRN Reason Start Time Stop Time Status Last Admin Dose Admin Pantoprazole Sodium (PROTONIX VIAL for IV PUSH) 40 mg DAILYAC IVP 08/04/20 09:00 08/04/20 09:18 ALLERGIES ALLERGIES: Coded Allergies: nut - unspecified (Verified Allergy, Intermediate, 01/05/19) lisinopril (Verified Adverse Reaction, Intermediate, Cough, 01/05/19) ROS Review of System limited, poor historian, see HPI PHYSICAL EXAM General: Alert, Oriented X3, Cooperative, No acute distress HEENT: Atraumatic, Mucous membr. moist/pink Lungs: Other (diminished bases) Heart: Normal S1, Normal S2, Other (No tele, irregular, rate controlled; 2/6 systolic murmur to LLS border) Abdomen: Soft Extremities: No cyanosis, No edema Skin: No breakdown, No significant lesion Neuro: Normal speech, Sensation intact, Other Psych/Mental Status: Mental status NL, Mood NL MUSCULOSKELETAL: Osteoarthritic changes both hands VITALS/I&O VITALS/I&O: Vital Signs Date Time Temp Pulse Resp B/P (MAP) Pulse Ox O2 Delivery O2 Flow Rate FiO2 08/04/20 07:45 Room Air 08/04/20 07:00 97.9 84 17 103/49 (67) 94 97.9 I & O 08/03/20 08/03/20 08/04/20 15:00 23:00 07:00 Intake Total 0 ml 0 ml Balance 0 ml 0 ml LABS Lab: Laboratory Tests Test 08/04/20 09:30 SARS-CoV-2 Antigen (Rapid) Negative (NEGATIVE) ECHOCARDIOGRAM ECHOCARDIOGRAM <Conclusion> The Left Ventricle is mildly dilated. The systolic function is moderately impaired. The Ejection Fraction is 30-35%. There is global hypokinesis of the left ventricle. There is mild to moderate concentric left ventricular hypertrophy. Doppler and Color Flow revealed trace aortic regurgitation. There is no significant aortic valvular stenosis. Doppler and Color-flow revealed mild to moderate mitral regurgitation. Doppler and Color Flow revealed mild to moderate tricuspid regurgitation with an estimated PAP of 70 mmHg. DATE: 11/10/19 1513 HEART CATH HEART CATH Findings. Hemodynamics. LV pressure of 1:30/15, 24. Aortic root pressure 126/68. Coronaries. Left main. The left main was a moderately large vessel. It had no lesions. Left anterior descending. The LAD was a moderate to moderately large vessel with normal distribution. It had a mid lesion in the 25% range. A second diagonal branch had an ostial 40% lesion. Left circumflex. The left circumflex was a moderate size vessel. It a proximal 20% lesion. A large obtuse marginal 1 branch had a 50% lesion which was eccentric. IFR measurement of this lesion was normal at 0.94. Right coronary artery. The right coronary was a moderate size vessel. Had a proximal 30% lesion and a mid 30% lesion. <Conclusion> Moderate three-vessel coronary disease with no hemodynamically significant lesions. Normal IFR measurement of a obtuse marginal 1 lesion. Elevated left ventricular end-diastolic pressure. DATE: 08/08/18 1255 ASSESSMENT/PLAN ASSESSMENT/PLAN 1. Abdominal pain/globus/vomiting 2. Chronic diarrhea 3. NICM: compensated 4. CAD: clinically stable 5. Chronic systolic CHF: compensated 6. Hx of CVA 7. PAFIB: recentl ILR interrogation with 64% AFIB burden. Presently irregular no tele currently 8. Chronic LBBB 9. HTN 10. DM2/HLP 11. ESRD Recommendations 1. EGD planned for today 2. Fluid off loading per HD 3. Transfer to tele post op for rhythm monitoring 4. Will resume HF meds once able to take PO. If remains NPO then will transition meds to IV 5. Pt has declined AICD previously. Continue HF optimization. At the present time no acute cardiac issues, supportive care. 6. Resume eliquis when OK with GI OPAL TAYLOR MD 08/05/20 2346: JODI OLIVEIRA PRODUCTION CONTROL COORDINATOR Aug 04, 2020 11:56 OPAL TAYLOR MD Aug 05, 2020 23:46
[2020-08-04] MEDS: CARVEDILOL 6.25 MG TABLET. PO SCH ×2 (12:00→17:51)
[2020-08-04] MEDS: CITALOPRAM 20 MG TABLET. PO SCH (12:00)
[2020-08-04] MEDS: CALCITRIOL 0.25 MCG CAPSULE. PO SCH (12:00)
[2020-08-04] MEDS: ATORVASTATIN CALCIUM 10 MG TABLET. PO SCH (12:00)
[2020-08-04] MEDS: ALLOPURINOL 100 MG TABLET. PO SCH (12:00)
[2020-08-04] MEDS: SEVELAMER CARBONATE 800 MG TABLET. PO SCH ×2 (12:00→17:50)
[2020-08-04] MEDS: SACUBITRIL/VALSARTAN 24/26MG TABLET. PO SCH ×2 (12:00→22:26)
--- NOTE | 2020-08-04 12:10 | NUR ---
Pt. down to OP for EGD via WC per transportation.
--- NOTE | 2020-08-04 12:29 | PDOC2 ---
CONSULT Date of Consult Date of Consult DATE: 08/04/20 TIME: 12:23 Reason for Consult Reason for Consult: ESRD Referring Physician Referring Physician: ERNESTO Identification/Chief Complaint Chief Complaint N/V Source Source: Chart review History of Present Illness Reason for Visit: THIS IS A 74 YR OLD WITH ESRD ON HD MWF VIA HIS LEFT ARM AVF. BELOW NOTED This is a pleasant 74 yo male admitted for complains of vomiting. He is a poor historian with poor recall. Spouse was at the bedside and discussed symptom details. Initially pt was at [facility] and transferred to [facility] for further GI workup. Reports that in the last 3 dasy he has been having episode that when he eats just even a few bites he complained that it gets stuck midway and eventually vomits it out. He has been able to eat nor drink adequately due to the vomiting. He does occasionally has epigastric discomfort. No fever or chills. He has been having loose stools as well for about 2 months now. No new surgeries recently. Denies any SOA, chest pain and no leg edema. Also when he takes his pills somet imes he is not able to swallow it. Past Medical History Cardiovascular: AFIB, CAD, CHF, HTN, Hyperlipidemia, Valve insufficiency, Pulmonary hypertension, Other (NICM; PAD) Pulmonary: Other (SERENITY- noncompliant with CPAP) CENTRAL NERVOUS SYSTEM: CVA GI: Other (diarrhea) Heme/Onc: Anemia NOS Hepatobiliary: No pertinent hx Psych: No pertinent hx Musculoskeletal: Osteoarthritis Rheumatologic: Gout Infectious disease: No pertinent hx ENT: Other (cataract) Renal/: Chronic renal failure Endocrine: Diabetes (2), Hyperparathyroidism Dermatology: No pertinent hx Past Surgical History Past Surgical History: Cataract Removal, Other (unilateral nephrectomy; ILR placement; LAV fistula) Family History Family History: Diabetes Social History No ALCOHOL: none Drugs: None Lives: with Family Current Medications Current Medications Current Medications Pantoprazole Sodium (PROTONIX VIAL for IV PUSH) 40 mg DAILYAC IVP Last administered on 08/04/20at 09:18; Start 08/04/20 at 09:00 Allopurinol (Zyloprim) 200 mg DAILY PO ; Start 08/04/20 at 12:00 Calcitriol (Rocaltrol) 0.25 mcg DAILY PO ; Start 08/04/20 at 12:00 Carvedilol (Coreg) 6.25 mg BIDWMEALS PO ; Start 08/04/20 at 12:00 Sacubitril/ Valsartan (Entresto 24 Mg-26 Mg) 1 tab BID PO ; Start 08/04/20 at 12:00 Sevelamer Carbonate (Renvela) 3,200 mg TIDWMEALS PO ; Start 08/04/20 at 12:00 Citalopram Hydrobromide (CeleXA) 20 mg DAILY PO ; Start 08/04/20 at 12:00 Atorvastatin Calcium (Lipitor) 5 mg DAILY PO ; Start 08/04/20 at 12:00 Active Scripts Active Hydrocodone-Apap 5-325 (Hydrocodone Bit/Acetaminophen) 1 Tab Tablet 1 Tab PO PRN Q6HRS PRN 6 Days Reported Lasix (Furosemide) 40 Mg Tablet 40 Mg PO BID Escitalopram Oxalate 10 Mg Tablet 10 Mg PO DAILY Calcitriol 0.25 Mcg Capsule 0.25 Mcg PO DAILY Carvedilol (Carvedilol) 6.25 Mg Tablet 6.25 Mg PO BIDWMEALS Potassium Chloride (Potassium Chloride) 20 Meq Tablet.er 20 Meq PO BID Novolog (Insulin Aspart) 100 Unit/1 Ml Cartridge 20 Unit SQ TIDWMEALS Levemir (Insulin Detemir) 100 Unit/1 Ml Vial 10 Unit SQ QHS Allopurinol 100 Mg Tablet 2 Tab PO DAILY Entresto 24 mg-26 mg Tablet (Sacubitril/Valsartan) 1 Each Tablet 1 Each PO BID Renvela (Sevelamer Carbonate) 800 Mg Tablet 2 Tab PO TID Eliquis (Apixaban) 5 Mg Tablet 5 Mg PO BID Ferrous Sulfate 325 Mg Tablet 1 Tab PO TID Pravastatin Sodium 20 Mg Tablet 20 Mg PO DAILY Allergies Allergies: Coded Allergies: nut - unspecified (Verified Allergy, Intermediate, 01/05/19) lisinopril (Verified Adverse Reaction, Intermediate, Cough, 01/05/19) ROS Review of System IN HPI Physical Exam General: Alert, Oriented X3, Cooperative, No acute distress HEENT: Atraumatic, PERRLA Lungs: Clear to auscultation Heart: Regular rate Abdomen: Normal bowel sounds, Soft, No tenderness Skin: No breakdown Neuro: Normal speech Psych/Mental Status: Mental status NL MUSCULOSKELETAL: No joint tenderness, No deformity, No swelling Vitals VITALS Vital Signs Date Time Temp Pulse Resp B/P (MAP) Pulse Ox O2 Delivery O2 Flow Rate FiO2 08/04/20 11:00 97.6 76 18 106/53 (70) 96 Room Air 97.6 Labs Labs Laboratory Tests Test 08/04/20 09:30 SARS-CoV-2 Antigen (Rapid) Negative (NEGATIVE) Laboratory Tests Test 08/04/20 09:30 SARS-CoV-2 Antigen (Rapid) Negative (NEGATIVE) Assessment/Plan Assessment/Plan IMP ESRD-MWF-L ARM AVF ANEMIA AFIB ABD PAIN N/V PLAN EGD TODAY HD MWF WILL FOLLOW SIGIFREDO CLARK MD Aug 04, 2020 12:28
[2020-08-04] MEDS ORDERED: PROPOFOL 10 MG/ML (20ML) VIAL. IV ONE (12:34)
[2020-08-04] MEDS: IV NORMAL SALINE 1000ML BAG 1,000 ML IV SCH (12:41)
[2020-08-04 14:49] VITALS: BP 133/63
[2020-08-04] MEDS: METOPROLOL IV PUSH 5 MG/5 ML VIAL. IVP SCH (16:00)
[2020-08-04 19:00] VITALS: BP 104/47
[2020-08-04 22:29] VITALS: BP 104/56
[2020-08-05] MEDS: METOPROLOL IV PUSH 5 MG/5 ML VIAL. IVP SCH ×2 (00:32→05:59)
[2020-08-05 02:17] VITALS: BP 84/53
[2020-08-05] MEDS: IV NORMAL SALINE 1000ML BAG 1,000 ML IV SCH ×2 (05:57→15:40)
[2020-08-05 07:00] VITALS: BP 99/53
[2020-08-05 07:36] LABS: BASO # 0.1 x10^3/uL (0.0-0.2); BASO % 1 % (0-3); EOS # 0.1 x10^3/uL (0.0-0.7); EOS % 1 % (0-3); HEMATOCRIT 28.1 % (39.0-53.0); HEMOGLOBIN 9.2 g/dL (13.0-17.5); LYMPH # 0.8 x10^3/uL (1.0-4.8); LYMPH % 14 % (24-48); MEAN CORPUSCULAR HEMOGLOBIN 34 pg (25-35); MEAN CORPUSCULAR HGB CONC 33 g/dL (31-37); MEAN CORPUSCULAR VOLUME 103 fL (79-100); MONO # 0.5 x10^3/uL (0.0-1.1); MONO % 9 % (0-9); NEUT # 4.7 x10^3/uL (1.8-7.7); NEUT % 76 % (31-73); PLATELET COUNT 117 x10^3/uL (140-400); RED BLOOD COUNT 2.74 x10^6/uL (4.30-5.70); RED CELL DISTRIBUTION WIDTH 15.6 % (11.5-14.5); WHITE BLOOD COUNT 6.1 x10^3/uL (4.0-11.0)
[2020-08-05] MEDS ORDERED: IV NORMAL SALINE 1000ML BAG 1,000 ML IV PRN ×2 (08:00)
[2020-08-05] MEDS: CARVEDILOL 6.25 MG TABLET. PO SCH (08:00)
[2020-08-05] MEDS: SEVELAMER CARBONATE 800 MG TABLET. PO SCH ×3 (08:00→18:09)
[2020-08-05] MEDS ORDERED: DIALYSIS PATIENT. MC PRN ×2 (08:00)
[2020-08-05 08:16] LABS: ALBUMIN/GLOBULIN RATIO 1.1 (1.0-1.7); CALCIUM 8.9 mg/dL (8.5-10.1); CREATININE 5.6 mg/dL (0.7-1.3); POTASSIUM 4.4 mmol/L (3.5-5.1); TOTAL BILIRUBIN 0.4 mg/dL (0.2-1.0); TOTAL PROTEIN 5.8 g/dL (6.4-8.2)
--- NOTE | 2020-08-05 08:27 | PDOC ---
PROGRESS NOTES Date of Service: DATE: 08/05/20 TIME: 08:26 Chief Complaint Chief Complaint VTE Prophylaxis Ordered VTE Prophylaxis Devices: No VTE Pharmacological Prophylaxi: Yes Assessment/Plan Assessment/Plan impression acute esophageal obstruction //Dysphagia- differential includes: stricture, malignancy, achalasia, Falls Shortness of breath/ cardiomyopathy moderate pulmonary hypertension. PA pressure was estimated at 47 mmHg.ejection fraction is severely impaired. EF 25% recent echo global hypokinesis of the left ventricle. Htn - controlled dm2 controlled ESRD on HD MWF paroxysmal afib on eliquis, carvedilol h/o left renal Ca s/p nephrectomy rt toe chronic wound Esophageal tumor EGD 08/04 partially obstructing esophageal tumor in lower third of esophagus medication gel in esophagus - removed gastritis pmh A Fib, CHF, NICM, HTN, HLD, DM, CAD, pneumonia, CVA w/ left-sided weakness, OA, anxiety, ESRD on HD, RCC s/p left nephrectomy, plan admit nephrology consult gi consult npo dvt prophylaxis cardiology consult tele bed EGD REVIEWED ADAT D/W RN Justifications for Admission General Conditions Other justification for admit: SWALLOWING PROBLEMS History of Present Illness History of Present Illness Identification/Chief Complaint Chief Complaint UNABLE TO SWALLW SOLIDS X 2 DAYS History of Present Illness History of Present Illness 74 yo male admitted for complains of vomiting.poor recall. pt was at [facility] and transferred to [facility] for further GI workup. Reports that in the last 3 dayS he has been having episode that when he eats just even a few bites he complained that it gets stuck midway and eventually vomits He has been able to eat nor drink adequately due to the vomiting. He does occasionally has epigastric discomfort. No fever or chills THIS STARTED after eating meat 2 days ago Past Medical History Past Medical History Past Medical History Cardiovascular: AFIB, CAD, CHF, HTN, TN, Hyperlipidemia, cardiomyopathy Pulmonary: Pneumonia CENTRAL NERVOUS SYSTEM: CVA GI: No pertinent hx Heme/Onc: Anemia NOS Psych: No pertinent hx Musculoskeletal: Osteoarthritis Rheumatologic: Gout Infectious disease: No pertinent hx Renal/: Chronic renal failure, Other Endocrine: Diabetes Past Surgical History Past Surgical History: Cataract Removal, Other Family History Family History: Diabetes, Heart Disease, Hypertension Social History ALCOHOL: none Drugs: None Cardiovascular: AFIB, CAD, CHF, HTN, TN, Hyperlipidemia Pulmonary: Pneumonia CENTRAL NERVOUS SYSTEM: CVA GI: No pertinent hx Heme/Onc: Anemia NOS Psych: No pertinent hx Rheumatologic: Gout Infectious disease: No pertinent hx Renal/: Chronic renal failure, Other Endocrine: Diabetes, Hyperparathyroidism Past Surgical History Past Surgical History: Cataract Removal, Other Family History Family History: Diabetes, Heart Disease, Hypertension Social History Smoke: No ALCOHOL: none Drugs: None Vitals Vitals Vital Signs Date Time Temp Pulse Resp B/P (MAP) Pulse Ox O2 Delivery O2 Flow Rate FiO2 08/05/20 07:00 98.0 58 18 99/53 (68) 96 Nasal Cannula 2.0 98.0 Physical Exam General: Alert, Oriented X3, Cooperative, No acute distress Heart: Regular rate, Normal S1, Normal S2 Lungs: Clear, Other Abdomen: Normal bowel sounds, Soft, No tenderness Extremities: No clubbing, No cyanosis, No edema Skin: No breakdown Labs LABS Laboratory Tests Test 08/04/20 09:30 08/04/20 12:29 08/05/20 07:00 Coronavirus (PCR) Not detected (Not Detected) SARS-CoV-2 Antigen (Rapid) Negative (NEGATIVE) SARS-CoV-2 Comment Performed (.) Glucose (Fingerstick) 74 mg/dL (70-99) White Blood Count 6.1 x10^3/uL (4.0-11.0) Red Blood Count 2.74 x10^6/uL (4.30-5.70) Hemoglobin 9.2 g/dL (13.0-17.5) Hematocrit 28.1 % (39.0-53.0) Mean Corpuscular Volume 103 fL (79-100) Mean Corpuscular Hemoglobin 34 pg (25-35) Mean Corpuscular Hemoglobin Concent 33 g/dL (31-37) Red Cell Distribution Width 15.6 % (11.5-14.5) Platelet Count 117 x10^3/uL (140-400) Neutrophils (%) (Auto) 76 % (31-73) Lymphocytes (%) (Auto) 14 % (24-48) Monocytes (%) (Auto) 9 % (0-9) Eosinophils (%) (Auto) 1 % (0-3) Basophils (%) (Auto) 1 % (0-3) Neutrophils # (Auto) 4.7 x10^3/uL (1.8-7.7) Lymphocytes # (Auto) 0.8 x10^3/uL (1.0-4.8) Monocytes # (Auto) 0.5 x10^3/uL (0.0-1.1) Eosinophils # (Auto) 0.1 x10^3/uL (0.0-0.7) Basophils # (Auto) 0.1 x10^3/uL (0.0-0.2) Sodium Level 142 mmol/L (136-145) Potassium Level 4.4 mmol/L (3.5-5.1) Chloride Level 103 mmol/L (98-107) Carbon Dioxide Level 27 mmol/L (21-32) Anion Gap 12 (6-14) Blood Urea Nitrogen 36 mg/dL (8-26) Creatinine 5.6 mg/dL (0.7-1.3) Estimated GFR (Cockcroft-Gault) 10.0 BUN/Creatinine Ratio 6 (6-20) Glucose Level 89 mg/dL (70-99) Calcium Level 8.9 mg/dL (8.5-10.1) Total Bilirubin 0.4 mg/dL (0.2-1.0) Aspartate Amino Transf (AST/SGOT) 17 U/L (15-37) Alanine Aminotransferase (ALT/SGPT) 16 U/L (16-63) Alkaline Phosphatase 81 U/L (46-116) Total Protein 5.8 g/dL (6.4-8.2) Albumin 3.0 g/dL (3.4-5.0) Albumin/Globulin Ratio 1.1 (1.0-1.7) Comment Review of Relevant I have reviewed the following items jennifer (where applicable) has been applied. Labs Laboratory Tests Test 08/04/20 09:30 08/04/20 12:29 08/05/20 07:00 Coronavirus (PCR) Not detected (Not Detected) SARS-CoV-2 Antigen (Rapid) Negative (NEGATIVE) SARS-CoV-2 Comment Performed (.) Glucose (Fingerstick) 74 mg/dL (70-99) White Blood Count 6.1 x10^3/uL (4.0-11.0) Red Blood Count 2.74 x10^6/uL (4.30-5.70) Hemoglobin 9.2 g/dL (13.0-17.5) Hematocrit 28.1 % (39.0-53.0) Mean Corpuscular Volume 103 fL (79-100) Mean Corpuscular Hemoglobin 34 pg (25-35) Mean Corpuscular Hemoglobin Concent 33 g/dL (31-37) Red Cell Distribution Width 15.6 % (11.5-14.5) Platelet Count 117 x10^3/uL (140-400) Neutrophils (%) (Auto) 76 % (31-73) Lymphocytes (%) (Auto) 14 % (24-48) Monocytes (%) (Auto) 9 % (0-9) Eosinophils (%) (Auto) 1 % (0-3) Basophils (%) (Auto) 1 % (0-3) Neutrophils # (Auto) 4.7 x10^3/uL (1.8-7.7) Lymphocytes # (Auto) 0.8 x10^3/uL (1.0-4.8) Monocytes # (Auto) 0.5 x10^3/uL (0.0-1.1) Eosinophils # (Auto) 0.1 x10^3/uL (0.0-0.7) Basophils # (Auto) 0.1 x10^3/uL (0.0-0.2) Sodium Level 142 mmol/L (136-145) Potassium Level 4.4 mmol/L (3.5-5.1) Chloride Level 103 mmol/L (98-107) Carbon Dioxide Level 27 mmol/L (21-32) Anion Gap 12 (6-14) Blood Urea Nitrogen 36 mg/dL (8-26) Creatinine 5.6 mg/dL (0.7-1.3) Estimated GFR (Cockcroft-Gault) 10.0 BUN/Creatinine Ratio 6 (6-20) Glucose Level 89 mg/dL (70-99) Calcium Level 8.9 mg/dL (8.5-10.1) Total Bilirubin 0.4 mg/dL (0.2-1.0) Aspartate Amino Transf (AST/SGOT) 17 U/L (15-37) Alanine Aminotransferase (ALT/SGPT) 16 U/L (16-63) Alkaline Phosphatase 81 U/L (46-116) Total Protein 5.8 g/dL (6.4-8.2) Albumin 3.0 g/dL (3.4-5.0) Albumin/Globulin Ratio 1.1 (1.0-1.7) Laboratory Tests Test 08/04/20 09:30 08/04/20 12:29 08/05/20 07:00 Coronavirus (PCR) Not detected (Not Detected) SARS-CoV-2 Antigen (Rapid) Negative (NEGATIVE) SARS-CoV-2 Comment Performed (.) Glucose (Fingerstick) 74 mg/dL (70-99) White Blood Count 6.1 x10^3/uL (4.0-11.0) Red Blood Count 2.74 x10^6/uL (4.30-5.70) Hemoglobin 9.2 g/dL (13.0-17.5) Hematocrit 28.1 % (39.0-53.0) Mean Corpuscular Volume 103 fL (79-100) Mean Corpuscular Hemoglobin 34 pg (25-35) Mean Corpuscular Hemoglobin Concent 33 g/dL (31-37) Red Cell Distribution Width 15.6 % (11.5-14.5) Platelet Count 117 x10^3/uL (140-400) Neutrophils (%) (Auto) 76 % (31-73) Lymphocytes (%) (Auto) 14 % (24-48) Monocytes (%) (Auto) 9 % (0-9) Eosinophils (%) (Auto) 1 % (0-3) Basophils (%) (Auto) 1 % (0-3) Neutrophils # (Auto) 4.7 x10^3/uL (1.8-7.7) Lymphocytes # (Auto) 0.8 x10^3/uL (1.0-4.8) Monocytes # (Auto) 0.5 x10^3/uL (0.0-1.1) Eosinophils # (Auto) 0.1 x10^3/uL (0.0-0.7) Basophils # (Auto) 0.1 x10^3/uL (0.0-0.2) Sodium Level 142 mmol/L (136-145) Potassium Level 4.4 mmol/L (3.5-5.1) Chloride Level 103 mmol/L (98-107) Carbon Dioxide Level 27 mmol/L (21-32) Anion Gap 12 (6-14) Blood Urea Nitrogen 36 mg/dL (8-26) Creatinine 5.6 mg/dL (0.7-1.3) Estimated GFR (Cockcroft-Gault) 10.0 BUN/Creatinine Ratio 6 (6-20) Glucose Level 89 mg/dL (70-99) Calcium Level 8.9 mg/dL (8.5-10.1) Total Bilirubin 0.4 mg/dL (0.2-1.0) Aspartate Amino Transf (AST/SGOT) 17 U/L (15-37) Alanine Aminotransferase (ALT/SGPT) 16 U/L (16-63) Alkaline Phosphatase 81 U/L (46-116) Total Protein 5.8 g/dL (6.4-8.2) Albumin 3.0 g/dL (3.4-5.0) Albumin/Globulin Ratio 1.1 (1.0-1.7) Medications Current Medications Pantoprazole Sodium (PROTONIX VIAL for IV PUSH) 40 mg DAILYAC IVP Last administered on 08/04/20at 09:18; Start 08/04/20 at 09:00 Allopurinol (Zyloprim) 200 mg DAILY PO ; Start 08/04/20 at 12:00 Calcitriol (Rocaltrol) 0.25 mcg DAILY PO ; Start 08/04/20 at 12:00 Carvedilol (Coreg) 6.25 mg BIDWMEALS PO Last administered on 08/04/20at 17:51; Start 08/04/20 at 12:00 Sacubitril/ Valsartan (Entresto 24 Mg-26 Mg) 1 tab BID PO Last administered on 08/04/20at 22:26; Start 08/04/20 at 12:00 Sevelamer Carbonate (Renvela) 3,200 mg TIDWMEALS PO Last administered on 08/04/20at 17:50; Start 08/04/20 at 12:00 Citalopram Hydrobromide (CeleXA) 20 mg DAILY PO ; Start 08/04/20 at 12:00 Atorvastatin Calcium (Lipitor) 5 mg DAILY PO ; Start 08/04/20 at 12:00 Sodium Chloride 1,000 ml @ 75 mls/hr [id number] IV Last administered on 08/05/20at 05:57; Start 08/04/20 at 13:00 Propofol (Diprivan) 200 mg STK-MED ONCE IV ; Start 08/04/20 at 12:34; Stop 08/04/20 at 12:35; Status DC Metoprolol Tartrate (Lopressor Vial) 2.5 mg Q6HRS IVP Last administered on 08/05/20at 00:32; Start 08/04/20 at 16:00; Stop 08/05/20 at 08:09; Status DC Sodium Chloride 1,000 ml @ 1,000 mls/hr Q1H PRN IV hypotension; Start 08/05/20 at 08:00; Stop 08/05/20 at 13:59 Sodium Chloride 1,000 ml @ 400 mls/hr Q2H30M PRN IV PATENCY; Start 08/05/20 at 08:00; Stop 08/05/20 at 19:59 Info (PHARMACY MONITORING -- do not chart) 1 each PRN DAILY PRN MC SEE COMMENTS; Start 08/05/20 at 08:00 Info (PHARMACY MONITORING -- do not chart) 1 each PRN DAILY PRN MC SEE COMMENTS; Start 08/05/20 at 08:00 Active Scripts Active Hydrocodone-Apap 5-325 (Hydrocodone Bit/Acetaminophen) 1 Tab Tablet 1 Tab PO PRN Q6HRS PRN 6 Days Reported Lasix (Furosemide) 40 Mg Tablet 40 Mg PO BID Escitalopram Oxalate 10 Mg Tablet 10 Mg PO DAILY Calcitriol 0.25 Mcg Capsule 0.25 Mcg PO DAILY Carvedilol (Carvedilol) 6.25 Mg Tablet 6.25 Mg PO BIDWMEALS Potassium Chloride (Potassium Chloride) 20 Meq Tablet.er 20 Meq PO BID Novolog (Insulin Aspart) 100 Unit/1 Ml Cartridge 20 Unit SQ TIDWMEALS Levemir (Insulin Detemir) 100 Unit/1 Ml Vial 10 Unit SQ QHS Allopurinol 100 Mg Tablet 2 Tab PO DAILY Entresto 24 mg-26 mg Tablet (Sacubitril/Valsartan) 1 Each Tablet 1 Each PO BID Renvela (Sevelamer Carbonate) 800 Mg Tablet 2 Tab PO TID Eliquis (Apixaban) 5 Mg Tablet 5 Mg PO BID Ferrous Sulfate 325 Mg Tablet 1 Tab PO TID Pravastatin Sodium 20 Mg Tablet 20 Mg PO DAILY Vitals/I & O Vital Sign - Last 24 Hours 3/25/21 3/25/21 3/25/21 3/25/21 11:00 12:44 12:45 13:34 Temp 97.6 97.6 97.6 97.6 97.6 97.6 Pulse 76 73 68 Resp 18 16 B/P (MAP) 106/53 (70) 100/57 Pulse Ox 96 92 99 O2 Delivery Room Air Nasal Cannula Nasal Cannula O2 Flow Rate 2 4 08/04/20 08/04/20 08/04/20 08/04/20 13:49 14:05 14:20 14:49 Temp 98.8 97.5 98.8 97.5 Pulse 78 78 80 65 Resp 16 18 18 18 B/P (MAP) 117/53 128/46 126/52 133/63 (86) Pulse Ox 99 99 99 95 O2 Delivery Nasal Cannula Nasal Cannula Nasal Cannula Room Air O2 Flow Rate 4 4 4 08/04/20 08/04/20 08/04/20 08/04/20 15:00 16:00 17:51 19:00 Temp 98.1 98.1 Pulse 65 65 67 Resp 18 B/P (MAP) 133/63 133/63 104/47 (66) Pulse Ox 94 O2 Delivery Nasal Cannula Nasal Cannula O2 Flow Rate 2 1.0 08/04/20 08/04/20 08/04/20 08/05/20 20:00 22:26 22:29 00:32 Temp 99.1 99.1 Pulse 67 74 74 Resp 18 B/P (MAP) 104/47 104/56 (72) 104/56 Pulse Ox 98 O2 Delivery Nasal Cannula Nasal Cannula O2 Flow Rate 2 2.0 08/05/20 08/05/20 08/05/20 02:17 05:59 07:00 Temp 98.0 98.0 98.0 98.0 Pulse 59 59 58 Resp 18 18 B/P (MAP) 84/53 (63) 84/53 99/53 (68) Pulse Ox 98 96 O2 Delivery Nasal Cannula Nasal Cannula O2 Flow Rate 2.0 2.0 Intake and Output 08/04/20 08/04/20 08/05/20 15:00 23:00 07:00 Intake Total 100 ml 500 ml 300 ml Balance 100 ml 500 ml 300 ml Justicifation of Admission Dx: Justifications for Admission: Justification of Admission Dx: Yes Comments: ESOPHAGEAL MASS VERENA OROZCO MD Aug 05, 2020 08:27
[2020-08-05] MEDS: SACUBITRIL/VALSARTAN 24/26MG TABLET. PO SCH ×2 (09:00→20:26)
--- NOTE | 2020-08-05 11:44 | PDOC ---
Renal-Progress Notes Subjective Notes Notes FEELING BETTER History of Present Illness Hx of present illness ABLE TO EAT SOME Vitals Vitals Vital Signs Date Time Temp Pulse Resp B/P (MAP) Pulse Ox O2 Delivery O2 Flow Rate FiO2 08/05/20 08:00 Nasal Cannula 2 08/05/20 07:00 98.0 58 18 99/53 (68) 96 98.0 Weight Weight [ ] I.O. Intake and Output Intake and Output 08/05/20 07:00 Intake Total 900 ml Balance 900 ml Intake Oral 800 ml IV Total 100 ml Labs Labs Laboratory Tests Test 08/04/20 12:29 08/05/20 07:00 Glucose (Fingerstick) 74 mg/dL (70-99) White Blood Count 6.1 x10^3/uL (4.0-11.0) Red Blood Count 2.74 x10^6/uL (4.30-5.70) Hemoglobin 9.2 g/dL (13.0-17.5) Hematocrit 28.1 % (39.0-53.0) Mean Corpuscular Volume 103 fL (79-100) Mean Corpuscular Hemoglobin 34 pg (25-35) Mean Corpuscular Hemoglobin Concent 33 g/dL (31-37) Red Cell Distribution Width 15.6 % (11.5-14.5) Platelet Count 117 x10^3/uL (140-400) Neutrophils (%) (Auto) 76 % (31-73) Lymphocytes (%) (Auto) 14 % (24-48) Monocytes (%) (Auto) 9 % (0-9) Eosinophils (%) (Auto) 1 % (0-3) Basophils (%) (Auto) 1 % (0-3) Neutrophils # (Auto) 4.7 x10^3/uL (1.8-7.7) Lymphocytes # (Auto) 0.8 x10^3/uL (1.0-4.8) Monocytes # (Auto) 0.5 x10^3/uL (0.0-1.1) Eosinophils # (Auto) 0.1 x10^3/uL (0.0-0.7) Basophils # (Auto) 0.1 x10^3/uL (0.0-0.2) Sodium Level 142 mmol/L (136-145) Potassium Level 4.4 mmol/L (3.5-5.1) Chloride Level 103 mmol/L (98-107) Carbon Dioxide Level 27 mmol/L (21-32) Anion Gap 12 (6-14) Blood Urea Nitrogen 36 mg/dL (8-26) Creatinine 5.6 mg/dL (0.7-1.3) Estimated GFR (Cockcroft-Gault) 10.0 BUN/Creatinine Ratio 6 (6-20) Glucose Level 89 mg/dL (70-99) Calcium Level 8.9 mg/dL (8.5-10.1) Total Bilirubin 0.4 mg/dL (0.2-1.0) Aspartate Amino Transf (AST/SGOT) 17 U/L (15-37) Alanine Aminotransferase (ALT/SGPT) 16 U/L (16-63) Alkaline Phosphatase 81 U/L (46-116) Total Protein 5.8 g/dL (6.4-8.2) Albumin 3.0 g/dL (3.4-5.0) Albumin/Globulin Ratio 1.1 (1.0-1.7) Review of Systems Constitutional: yes: weakness, alert, oriented Ears/Nose/Throat: Yes: no symptom reported Eyes: Yes: no symptom reported Pulmonary: Yes no symptom reported Cardiovascular: Yes no symptom reported Gastrointestional: Yes: nausea, vomiting Genitourinary: Yes: no symptom reported Musculoskeletal: Yes: no symptom reported Skin: Yes no symptom reported Psychiatric/Neurological: Yes: no symptom reported Endocrine: Yes: no symptom reported Physical Exam General Appearance: no apparent distress Skin: warm Respiratory: bilateral CTA Heart: S1S2 Abdomen: bowel sounds present Genitourinary: bladder flat Extremities: pulses present Neurology: alert, oriented Assessment Assessment IMP ESRD-MWF-L ARM AVF ANEMIA AFIB ABD PAIN N/V PLAN HD TODAY UF TO DW SIGIFREDO MCKENZIE MD Aug 05, 2020 11:44
--- NOTE | 2020-08-05 12:26 | PDOC ---
Date of Service: DATE: 08/05/20 TIME: 12:22 Subjective: Subjective: Seen during dialysis - voices no GI complaints - says eating okay. Objective: Objective: D/w nurse - tolerating clears and plans to advance for lunch. Vital Signs: Vital Signs Date Time Temp Pulse Resp B/P (MAP) Pulse Ox O2 Delivery O2 Flow Rate FiO2 08/05/20 08:00 Nasal Cannula 2 08/05/20 07:00 98.0 58 18 99/53 (68) 96 98.0 Labs: Laboratory Tests Test 08/04/20 12:29 08/05/20 07:00 Glucose (Fingerstick) 74 mg/dL White Blood Count 6.1 x10^3/uL Red Blood Count 2.74 x10^6/uL Hemoglobin 9.2 g/dL Hematocrit 28.1 % Mean Corpuscular Volume 103 fL Mean Corpuscular Hemoglobin 34 pg Mean Corpuscular Hemoglobin Concent 33 g/dL Red Cell Distribution Width 15.6 % Platelet Count 117 x10^3/uL Neutrophils (%) (Auto) 76 % Lymphocytes (%) (Auto) 14 % Monocytes (%) (Auto) 9 % Eosinophils (%) (Auto) 1 % Basophils (%) (Auto) 1 % Neutrophils # (Auto) 4.7 x10^3/uL Lymphocytes # (Auto) 0.8 x10^3/uL Monocytes # (Auto) 0.5 x10^3/uL Eosinophils # (Auto) 0.1 x10^3/uL Basophils # (Auto) 0.1 x10^3/uL Sodium Level 142 mmol/L Potassium Level 4.4 mmol/L Chloride Level 103 mmol/L Carbon Dioxide Level 27 mmol/L Anion Gap 12 Blood Urea Nitrogen 36 mg/dL Creatinine 5.6 mg/dL Estimated GFR (Cockcroft-Gault) 10.0 BUN/Creatinine Ratio 6 Glucose Level 89 mg/dL Calcium Level 8.9 mg/dL Total Bilirubin 0.4 mg/dL Aspartate Amino Transf (AST/SGOT) 17 U/L Alanine Aminotransferase (ALT/SGPT) 16 U/L Alkaline Phosphatase 81 U/L Total Protein 5.8 g/dL Albumin 3.0 g/dL Albumin/Globulin Ratio 1.1 Imaging: *provided floor nurse w/ copy of EGD* EGD 08/04 partially obstructing esophageal tumor in lower third of esophagus medication gel in esophagus - removed gastritis normal duodenum PE: GEN: NAD - dialyzing LUNGS: CTAB HEART: irregular ABD: S/ND/NT NEURO/PSYCH: A & O 3 A/P: Esophageal tumor Macrocytic anemia - normal B12 in 2016 H/o A FIb on Eliquis, NICM, ESRD on HD, dementia -- Plans to try advancing diet. Await path. Not clear he comprehends. Justicifation of Admission Dx: Justifications for Admission: Justification of Admission Dx: Yes MARY ELLEN HOOD Aug 05, 2020 12:26
[2020-08-05 12:45] VITALS: BP 136/61
--- NOTE | 2020-08-05 13:13 | NUR ---
SS following up with discharge planning. SS reviewed pt chart and discussed with pt RN. Pt is from home with spouse and is currently requiring oxygen at two liters nasal canula. COVID19 negative. GI and Nephrology following. Pt has hemodialysis, Saturday, Saturday, and Saturday at [facility], ; fax [phone]. SS will continue to follow for discharge planning.
[2020-08-05] MEDS: ATORVASTATIN CALCIUM 10 MG TABLET. PO SCH (13:27)
[2020-08-05] MEDS: CALCITRIOL 0.25 MCG CAPSULE. PO SCH (13:27)
[2020-08-05] MEDS: ALLOPURINOL 100 MG TABLET. PO SCH (13:27)
[2020-08-05] MEDS: PANTOPRAZOLE IV PUSH 40 MG VIAL. IVP SCH (13:27)
[2020-08-05] MEDS: CITALOPRAM 20 MG TABLET. PO SCH (13:27)
[2020-08-05 14:08] VITALS: BP 113/63
--- NOTE | 2020-08-05 16:57 | PDOC ---
JODI OLIVEIRA [employer] 08/05/20 1657: CARDIO Progress Notes Date and Time Date of Service 08/05/2020 Time of Evaluation 1620 Subjective Subjective: No Chest Pain, No shortness of breath, No Palpitations Vitals Vitals Vital Signs Date Time Temp Pulse Resp B/P (MAP) Pulse Ox O2 Delivery O2 Flow Rate FiO2 08/05/20 14:08 97.8 60 18 113/63 (80) 93 Nasal Cannula 2.0 97.8 Weight Weight [ ] Input and Output Intake and Output Intake and Output 08/05/20 07:00 Intake Total 900 ml Balance 900 ml Intake Oral 800 ml IV Total 100 ml Laboratory Labs Laboratory Tests Test 08/05/20 07:00 White Blood Count 6.1 x10^3/uL (4.0-11.0) Red Blood Count 2.74 x10^6/uL (4.30-5.70) Hemoglobin 9.2 g/dL (13.0-17.5) Hematocrit 28.1 % (39.0-53.0) Mean Corpuscular Volume 103 fL (79-100) Mean Corpuscular Hemoglobin 34 pg (25-35) Mean Corpuscular Hemoglobin Concent 33 g/dL (31-37) Red Cell Distribution Width 15.6 % (11.5-14.5) Platelet Count 117 x10^3/uL (140-400) Neutrophils (%) (Auto) 76 % (31-73) Lymphocytes (%) (Auto) 14 % (24-48) Monocytes (%) (Auto) 9 % (0-9) Eosinophils (%) (Auto) 1 % (0-3) Basophils (%) (Auto) 1 % (0-3) Neutrophils # (Auto) 4.7 x10^3/uL (1.8-7.7) Lymphocytes # (Auto) 0.8 x10^3/uL (1.0-4.8) Monocytes # (Auto) 0.5 x10^3/uL (0.0-1.1) Eosinophils # (Auto) 0.1 x10^3/uL (0.0-0.7) Basophils # (Auto) 0.1 x10^3/uL (0.0-0.2) Sodium Level 142 mmol/L (136-145) Potassium Level 4.4 mmol/L (3.5-5.1) Chloride Level 103 mmol/L (98-107) Carbon Dioxide Level 27 mmol/L (21-32) Anion Gap 12 (6-14) Blood Urea Nitrogen 36 mg/dL (8-26) Creatinine 5.6 mg/dL (0.7-1.3) Estimated GFR (Cockcroft-Gault) 10.0 BUN/Creatinine Ratio 6 (6-20) Glucose Level 89 mg/dL (70-99) Calcium Level 8.9 mg/dL (8.5-10.1) Total Bilirubin 0.4 mg/dL (0.2-1.0) Aspartate Amino Transf (AST/SGOT) 17 U/L (15-37) Alanine Aminotransferase (ALT/SGPT) 16 U/L (16-63) Alkaline Phosphatase 81 U/L (46-116) Total Protein 5.8 g/dL (6.4-8.2) Albumin 3.0 g/dL (3.4-5.0) Albumin/Globulin Ratio 1.1 (1.0-1.7) Review of Systems Constitutional: yes: weakness, alert, oriented Ears/Nose/Throat: Yes: no symptom reported Eyes: Yes: no symptom reported Pulmonary: Yes no symptom reported Cardiovascular: Yes no symptom reported Gastrointestional: Yes: nausea, vomiting Genitourinary: Yes: no symptom reported Musculoskeletal: Yes: no symptom reported Skin: Yes no symptom reported Psychiatric/Neurological: Yes: no symptom reported Endocrine: Yes: no symptom reported Physical Exam HEENT: Neck Supple W Full Motion Chest: Symmetric LUNGS: Other (diminished bases) Heart: no thrills, no gallops Abdomen: Soft N/T Extremities: No Calf Tenderness Neurology: alert, oriented, follow commands Assessment Assessment 1. Abdominal pain/globus/vomiting: S/P EGD with distal esophageal mass with suspected CA 2. Chronic diarrhea 3. NICM: compensated 4. CAD: clinically stable 5. Chronic systolic CHF: compensated 6. Hx of CVA 7. PAFIB: recentl ILR interrogation with 64% AFIB burden. AFIB rate controlled 8. Chronic LBBB 9. HTN: controlled 10. DM2/HLP 11. ESRD Recommendations 1. Fluid off loading per HD 2. At the present time no acute cardiac issues. Resume HF regimen. May hold BP meds per BP trend. Decrease coreg with lino episodes. 3. Conservative measures cardiac mckeon, await pathology. Pt had declined AICD in the past. 4. Discussed with CHERI IRELAND to resume eliquis Justicifation of Admission Dx: Justifications for Admission: Justification of Admission Dx: Yes OPAL TAYLOR MD 08/05/20 3987: CARDIO Progress Notes Plan Plan The patient was seen and interviewed as well as examined at the bedside. The chart was reviewed. The case was discussed. Agree with the plan of care. JODI OLIVEIRA APRN Aug 05, 2020 16:57 OPAL TAYLOR MD Aug 05, 2020 23:57
[2020-08-05 19:00] VITALS: BP 115/56
[2020-08-05] MEDS: APIXABAN 5 MG TABLET. PO SCH (20:26)
[2020-08-05 22:11] VITALS: BP 98/55
[2020-08-06 02:49] VITALS: BP 113/59
[2020-08-06] MEDS: IV NORMAL SALINE 1000ML BAG 1,000 ML IV SCH ×2 (04:58→18:20)
[2020-08-06 07:00] VITALS: BP 115/56
[2020-08-06] MEDS: SEVELAMER CARBONATE 800 MG TABLET. PO SCH ×3 (08:00→17:00)
[2020-08-06] MEDS: APIXABAN 5 MG TABLET. PO SCH ×2 (08:51→20:03)
[2020-08-06] MEDS: PANTOPRAZOLE IV PUSH 40 MG VIAL. IVP SCH (08:52)
[2020-08-06] MEDS: CARVEDILOL 6.25 MG TABLET. PO SCH ×2 (08:52→17:00)
[2020-08-06] MEDS: SACUBITRIL/VALSARTAN 24/26MG TABLET. PO SCH ×2 (08:52→20:03)
[2020-08-06] MEDS: ALLOPURINOL 100 MG TABLET. PO SCH (09:00)
[2020-08-06] MEDS: ATORVASTATIN CALCIUM 10 MG TABLET. PO SCH (09:00)
[2020-08-06] MEDS: CALCITRIOL 0.25 MCG CAPSULE. PO SCH (09:00)
[2020-08-06] MEDS: CITALOPRAM 20 MG TABLET. PO SCH (09:00)
--- NOTE | 2020-08-06 09:49 | NUR ---
Pt refused to take larger sized pills due to the pain in his throat. Was able to convince him to take his cardiac meds. Pt states it only hurts when he swallows larger things. Pt resting comfortable at thsi time. Will continue to monitor and follow plan of care.
--- NOTE | 2020-08-06 10:03 | PDOC ---
PROGRESS NOTES Date of Service: DATE: 08/06/20 TIME: 10:03 Chief Complaint Chief Complaint VTE Prophylaxis Ordered VTE Prophylaxis Devices: No VTE Pharmacological Prophylaxi: Yes Assessment/Plan Assessment/Plan impression acute esophageal obstruction //Dysphagia- differential includes: stricture, malignancy, achalasia, Falls Shortness of breath/ cardiomyopathy moderate pulmonary hypertension. PA pressure was estimated at 47 mmHg.ejection fraction is severely impaired. EF 25% recent echo global hypokinesis of the left ventricle. Htn - controlled dm2 controlled ESRD on HD MWF paroxysmal afib on eliquis, carvedilol h/o left renal Ca s/p nephrectomy rt toe chronic wound Esophageal tumor EGD 08/04 partially obstructing esophageal tumor in lower third of esophagus medication gel in esophagus - removed gastritis 4 mm nodule identified in the left lingula. Follow-up effusions 2016 articulates with follow-up CT chest in 6 months. cognitive decline pmh A Fib, CHF, NICM, HTN, HLD, DM, CAD, pneumonia, CVA w/ left-sided weakness, OA, anxiety, ESRD on HD, RCC s/p left nephrectomy, plan admit nephrology consult gi consult npo dvt prophylaxis cardiology consult tele bed EGD REVIEWED ADAT await pathology ct chest / abd/ pelvis ///mass 08-06 EATING BETTER, on dialysis He has been able to eat nor drink adequately due to the vomiting. He does occasionally has epigastric discomfort. No fever or chills D/W RN Justifications for Admission General Conditions Other justification for admit: SWALLOWING PROBLEMS History of Present Illness History of Present Illness Identification/Chief Complaint Chief Complaint UNABLE TO SWALLW SOLIDS X 2 DAYS History of Present Illness History of Present Illness 74 yo male admitted for complains of vomiting.poor recall. pt was at [facility] and transferred to [facility] for further GI workup. Reports that in the last 3 dayS he has been having episode that when he eats just even a few bites he complained that it gets stuck midway and eventually vomits He has been able to eat nor drink adequately due to the vomiting. He does occasionally has epigastric discomfort. No fever or chills THIS STARTED after eating meat 2 days ago Past Medical History Past Medical History Past Medical History Cardiovascular: AFIB, CAD, CHF, HTN, [place], Hyperlipidemia, cardiomyopathy Pulmonary: Pneumonia CENTRAL NERVOUS SYSTEM: CVA GI: No pertinent hx Heme/Onc: Anemia NOS Psych: No pertinent hx Musculoskeletal: Osteoarthritis Rheumatologic: Gout Infectious disease: No pertinent hx Renal/: Chronic renal failure, Other Endocrine: Diabetes Past Surgical History Past Surgical History: Cataract Removal, Other Family History Family History: Diabetes, Heart Disease, Hypertension Social History ALCOHOL: none Drugs: None Cardiovascular: AFIB, CAD, CHF, HTN, [place], Hyperlipidemia Pulmonary: Pneumonia CENTRAL NERVOUS SYSTEM: CVA GI: No pertinent hx Heme/Onc: Anemia NOS Psych: No pertinent hx Rheumatologic: Gout Infectious disease: No pertinent hx Renal/: Chronic renal failure, Other Endocrine: Diabetes, Hyperparathyroidism Past Surgical History Past Surgical History: Cataract Removal, Other Family History Family History: Diabetes, Heart Disease, Hypertension Social History Smoke: No ALCOHOL: none Drugs: None Vitals Vitals Vital Signs Date Time Temp Pulse Resp B/P (MAP) Pulse Ox O2 Delivery O2 Flow Rate FiO2 08/06/20 08:52 73 115/56 08/06/20 07:00 97.4 18 90 Nasal Cannula 2.0 97.4 Physical Exam General: Alert, Oriented X3, Cooperative, No acute distress Heart: Regular rate, Normal S1, Normal S2 Lungs: Clear, Other Abdomen: Normal bowel sounds, Soft, No tenderness Extremities: No clubbing, No cyanosis, No edema Skin: No breakdown Comment Review of Relevant I have reviewed the following items jennifer (where applicable) has been applied. Labs Laboratory Tests Test 08/04/20 12:29 08/05/20 07:00 Glucose (Fingerstick) 74 mg/dL (70-99) White Blood Count 6.1 x10^3/uL (4.0-11.0) Red Blood Count 2.74 x10^6/uL (4.30-5.70) Hemoglobin 9.2 g/dL (13.0-17.5) Hematocrit 28.1 % (39.0-53.0) Mean Corpuscular Volume 103 fL (79-100) Mean Corpuscular Hemoglobin 34 pg (25-35) Mean Corpuscular Hemoglobin Concent 33 g/dL (31-37) Red Cell Distribution Width 15.6 % (11.5-14.5) Platelet Count 117 x10^3/uL (140-400) Neutrophils (%) (Auto) 76 % (31-73) Lymphocytes (%) (Auto) 14 % (24-48) Monocytes (%) (Auto) 9 % (0-9) Eosinophils (%) (Auto) 1 % (0-3) Basophils (%) (Auto) 1 % (0-3) Neutrophils # (Auto) 4.7 x10^3/uL (1.8-7.7) Lymphocytes # (Auto) 0.8 x10^3/uL (1.0-4.8) Monocytes # (Auto) 0.5 x10^3/uL (0.0-1.1) Eosinophils # (Auto) 0.1 x10^3/uL (0.0-0.7) Basophils # (Auto) 0.1 x10^3/uL (0.0-0.2) Sodium Level 142 mmol/L (136-145) Potassium Level 4.4 mmol/L (3.5-5.1) Chloride Level 103 mmol/L (98-107) Carbon Dioxide Level 27 mmol/L (21-32) Anion Gap 12 (6-14) Blood Urea Nitrogen 36 mg/dL (8-26) Creatinine 5.6 mg/dL (0.7-1.3) Estimated GFR (Cockcroft-Gault) 10.0 BUN/Creatinine Ratio 6 (6-20) Glucose Level 89 mg/dL (70-99) Calcium Level 8.9 mg/dL (8.5-10.1) Total Bilirubin 0.4 mg/dL (0.2-1.0) Aspartate Amino Transf (AST/SGOT) 17 U/L (15-37) Alanine Aminotransferase (ALT/SGPT) 16 U/L (16-63) Alkaline Phosphatase 81 U/L (46-116) Total Protein 5.8 g/dL (6.4-8.2) Albumin 3.0 g/dL (3.4-5.0) Albumin/Globulin Ratio 1.1 (1.0-1.7) Medications Current Medications Pantoprazole Sodium (PROTONIX VIAL for IV PUSH) 40 mg DAILYAC IVP Last administered on 08/06/20at 08:52; Start 08/04/20 at 09:00 Allopurinol (Zyloprim) 200 mg DAILY PO Last administered on 08/05/20at 13:27; Start 08/04/20 at 12:00 Calcitriol (Rocaltrol) 0.25 mcg DAILY PO Last administered on 08/05/20at 13:27; Start 08/04/20 at 12:00 Carvedilol (Coreg) 6.25 mg BIDWMEALS PO Last administered on 08/04/20at 17:51; Start 08/04/20 at 12:00; Stop 08/05/20 at 16:54; Status DC Sacubitril/ Valsartan (Entresto 24 Mg-26 Mg) 1 tab BID PO Last administered on 08/06/20at 08:52; Start 08/04/20 at 12:00 Sevelamer Carbonate (Renvela) 3,200 mg TIDWMEALS PO Last administered on 08/05/20at 18:09; Start 08/04/20 at 12:00 Citalopram Hydrobromide (CeleXA) 20 mg DAILY PO Last administered on 08/05/20at 13:27; Start 08/04/20 at 12:00 Atorvastatin Calcium (Lipitor) 5 mg DAILY PO Last administered on 08/05/20at 13:27; Start 08/04/20 at 12:00 Sodium Chloride 1,000 ml @ 75 mls/hr [id number] IV Last administered on 08/05/20at 05:57; Start 08/04/20 at 13:00 Propofol (Diprivan) 200 mg STK-MED ONCE IV ; Start 08/04/20 at 12:34; Stop 08/04/20 at 12:35; Status DC Metoprolol Tartrate (Lopressor Vial) 2.5 mg Q6HRS IVP Last administered on 08/05/20at 00:32; Start 08/04/20 at 16:00; Stop 08/05/20 at 08:09; Status DC Sodium Chloride 1,000 ml @ 1,000 mls/hr Q1H PRN IV hypotension; Start 08/05/20 at 08:00; Stop 08/05/20 at 13:59; Status DC Sodium Chloride 1,000 ml @ 400 mls/hr Q2H30M PRN IV PATENCY; Start 08/05/20 at 08:00; Stop 08/05/20 at 19:59; Status DC Info (PHARMACY MONITORING -- do not chart) 1 each PRN DAILY PRN MC SEE COMMENTS; Start 08/05/20 at 08:00; Status Cancel Info (PHARMACY MONITORING -- do not chart) 1 each PRN DAILY PRN MC SEE COMMENTS; Start 08/05/20 at 08:00 Carvedilol (Coreg) 3.125 mg BIDWMEALS PO Last administered on 08/06/20at 08:52; Start 08/06/20 at 08:00 Apixaban (Eliquis) 5 mg BID PO Last administered on 08/06/20at 08:51; Start 08/05/20 at 21:00 Active Scripts Active Hydrocodone-Apap 5-325 (Hydrocodone Bit/Acetaminophen) 1 Tab Tablet 1 Tab PO PRN Q6HRS PRN 6 Days Reported Lasix (Furosemide) 40 Mg Tablet 40 Mg PO BID Escitalopram Oxalate 10 Mg Tablet 10 Mg PO DAILY Calcitriol 0.25 Mcg Capsule 0.25 Mcg PO DAILY Carvedilol (Carvedilol) 6.25 Mg Tablet 6.25 Mg PO BIDWMEALS Potassium Chloride (Potassium Chloride) 20 Meq Tablet.er 20 Meq PO BID Novolog (Insulin Aspart) 100 Unit/1 Ml Cartridge 20 Unit SQ TIDWMEALS Levemir (Insulin Detemir) 100 Unit/1 Ml Vial 10 Unit SQ QHS Allopurinol 100 Mg Tablet 2 Tab PO DAILY Entresto 24 mg-26 mg Tablet (Sacubitril/Valsartan) 1 Each Tablet 1 Each PO BID Renvela (Sevelamer Carbonate) 800 Mg Tablet 2 Tab PO TID Eliquis (Apixaban) 5 Mg Tablet 5 Mg PO BID Ferrous Sulfate 325 Mg Tablet 1 Tab PO TID Pravastatin Sodium 20 Mg Tablet 20 Mg PO DAILY Vitals/I & O Vital Sign - Last 24 Hours 08/05/20 08/05/20 08/05/20 08/05/20 12:45 14:08 19:00 19:50 Temp 97.8 97.5 97.8 97.5 Pulse 66 60 53 Resp 18 19 B/P (MAP) 136/61 (86) 113/63 (80) 115/56 (75) Pulse Ox 93 94 O2 Delivery Nasal Cannula Nasal Cannula Nasal Cannula O2 Flow Rate 2.0 2.0 2 08/05/20 08/05/20 08/06/20 08/06/20 20:26 22:11 02:49 07:00 Temp 98.3 98.2 97.4 98.3 98.2 97.4 Pulse 57 64 56 73 Resp 19 18 18 B/P (MAP) 115/56 98/55 (69) 113/59 (77) 115/56 (75) Pulse Ox 99 98 90 O2 Delivery Nasal Cannula Nasal Cannula Nasal Cannula O2 Flow Rate 2.0 2.0 2.0 08/06/20 08/06/20 08:52 08:52 Pulse 73 73 B/P (MAP) 115/56 115/56 Intake and Output 08/05/20 08/05/20 08/06/20 15:00 23:00 07:00 Intake Total 300 ml 400 ml 0 ml Balance 300 ml 400 ml 0 ml Justicifation of Admission Dx: Justifications for Admission: Justification of Admission Dx: Yes VERENA OROZCO MD Aug 06, 2020 10:03
[2020-08-06 11:00] VITALS: BP 108/58
[2020-08-06 14:09] VITALS: BP 108/58
--- NOTE | 2020-08-06 14:10 | PDOC ---
DATE OF SERVICE: DOS: DATE: 08/06/20 TIME: 14:05 SUBJECTIVE ROS Follow-up for ESRD on hemodialysis Saturday Patient claims he is doing well. Denies any new complaints at this time. CVS: no Orthopnea, no CP RESP: no SOB, no MCDANIEL GI: no current ongoing nausea or Vomiting : no Dysuria, no Urgency OBJECTIVE Vital Signs Vital Signs Date Time Temp Pulse Resp B/P (MAP) Pulse Ox O2 Delivery O2 Flow Rate FiO2 08/06/20 11:00 97.6 52 16 108/58 (75) 94 Nasal Cannula 2.0 97.6 I & 0 Intake and Output 08/06/20 07:00 Intake Total 700 ml Balance 700 ml Intake Oral 700 ml # Voids 1 # Bowel Movements 1 PHYSICAL EXAM Physical Exam GEN: Awake, Oriented x 3, In no distress, some underlying cognitive deficits cannot be ruled out EYES: Vision Unchanged, Conjunctiva Normal EN: No EN Drainage, Mucous Membranes no NECK: no JVD, no JVP, Supple, no Thyromegaly CVS: S1S2, sioft Murmur, No Gallop, No Rub,no Edema RESP: no Rales, no Rhonchi,no Acc. Muscle Use GI: BS + ve, NO Bruit, Non Tender, Non Distended : no CVA tenderness, no Suprapubic Tenderness DIAGNOSIS/ASSESSMENT Assessment & Plan ESRD: Current fluid and E-lyte status does not necessitate emergent need for dialysis. Will re-evaluate for dialysis in the am and continue on MWF schedule. ANEMIA; Aranap as ordered, Transfuse with next HD as needed HTN: Current BP meds as reviewed. See orders for changes. BONE & MINERAL: Continue current regimen of phosphate binders. Monitor p.o. intake and trend of phosphorus prior to changes in the same. Patient has had a significant weight loss in the recent past we will hence check thyroid and CT scan as ordered given prior history of kidney cancers Discussed Plan of Care with family (RABIA) at bedside over the phone COMMENT/RELEVANT DATA Meds Current Medications Medications (Trade) Dose Ordered Sig/Esperanza Start Time Stop Time Status Last Admin Dose Admin Allopurinol (Zyloprim) 200 mg DAILY 08/04/20 12:00 08/05/20 13:27 200 MG Apixaban (Eliquis) 5 mg BID 08/05/20 21:00 08/06/20 08:51 5 MG Atorvastatin Calcium (Lipitor) 5 mg DAILY 08/04/20 12:00 08/05/20 13:27 5 MG Calcitriol (Rocaltrol) 0.25 mcg DAILY 08/04/20 12:00 08/05/20 13:27 0.25 MCG Carvedilol (Coreg) 3.125 mg BIDWMEALS 08/06/20 08:00 08/06/20 08:52 3.125 MG Citalopram Hydrobromide (CeleXA) 20 mg DAILY 08/04/20 12:00 08/05/20 13:27 20 MG Info (PHARMACY MONITORING -- do not chart) 1 each PRN DAILY PRN 08/05/20 08:00 Metoprolol Tartrate (Lopressor Vial) 2.5 mg Q6HRS 08/04/20 16:00 08/05/20 08:09 DC 08/05/20 00:32 2.5 MG Pantoprazole Sodium (PROTONIX VIAL for IV PUSH) 40 mg DAILYAC 08/04/20 09:00 08/06/20 08:52 40 MG Propofol (Diprivan) 200 mg STK-MED ONCE 08/04/20 12:34 08/04/20 12:35 DC Sacubitril/ Valsartan (Entresto 24 Mg-26 Mg) 1 tab BID 08/04/20 12:00 08/06/20 08:52 1 TAB Sevelamer Carbonate (Renvela) 3,200 mg TIDWMEALS 08/04/20 12:00 08/05/20 18:09 3,200 MG Sodium Chloride 1,000 ml @ 400 mls/hr Q2H30M PRN 08/05/20 08:00 08/05/20 19:59 DC Results All relevant outside records, renal labs, imaging studies, telemetry/EKG's were reviewed. Justicifation of Admission Dx: Justifications for Admission: Justification of Admission Dx: Yes CASSY SIERRA MD Aug 06, 2020 14:10
[2020-08-06 15:10] LABS: FREE T4 1.19 ng/dL (0.76-1.46); THYROID STIM HORMONE (TSH) 0.988 uIU/mL (0.358-3.74)
[2020-08-06] MEDS ORDERED: IOHEXOL 300 MG/ML 100ML VIAL. IV ONE (15:30)
[2020-08-06] MEDS ORDERED: CONTRAST GIVEN. MC PRN (15:30)
[2020-08-06 19:58] VITALS: BP 122/57
[2020-08-06 22:45] VITALS: BP 109/60
[2020-08-07 03:49] VITALS: BP 105/50
[2020-08-07 06:25] LABS: BASO % 1 % (0-3); EOS # 0.1 x10^3/uL (0.0-0.7); EOS % 2 % (0-3); HEMATOCRIT 28.5 % (39.0-53.0); HEMOGLOBIN 9.2 g/dL (13.0-17.5); LYMPH # 0.8 x10^3/uL (1.0-4.8); LYMPH % 17 % (24-48); MEAN CORPUSCULAR HEMOGLOBIN 33 pg (25-35); MEAN CORPUSCULAR HGB CONC 32 g/dL (31-37); MEAN CORPUSCULAR VOLUME 103 fL (79-100); MONO # 0.3 x10^3/uL (0.0-1.1); MONO % 7 % (0-9); NEUT # 3.4 x10^3/uL (1.8-7.7); NEUT % 73 % (31-73); PLATELET COUNT 126 x10^3/uL (140-400); RED BLOOD COUNT 2.78 x10^6/uL (4.30-5.70); RED CELL DISTRIBUTION WIDTH 15.9 % (11.5-14.5); WHITE BLOOD COUNT 4.6 x10^3/uL (4.0-11.0)
[2020-08-07 06:46] LABS: ALBUMIN 3.1 g/dL (3.4-5.0); ALBUMIN/GLOBULIN RATIO 0.9 (1.0-1.7); CALCIUM 9.1 mg/dL (8.5-10.1); CREATININE 5.3 mg/dL (0.7-1.3); GFR 10.7; POTASSIUM 4.1 mmol/L (3.5-5.1); TOTAL BILIRUBIN 0.4 mg/dL (0.2-1.0); TOTAL PROTEIN 6.4 g/dL (6.4-8.2)
[2020-08-07 07:00] VITALS: BP 133/59
[2020-08-07] MEDS: IV NORMAL SALINE 1000ML BAG 1,000 ML IV SCH ×2 (07:40→20:04)
[2020-08-07] MEDS: SEVELAMER CARBONATE 800 MG TABLET. PO SCH ×3 (08:00→16:50)
[2020-08-07] MEDS: CITALOPRAM 20 MG TABLET. PO SCH (08:34)
[2020-08-07] MEDS: SACUBITRIL/VALSARTAN 24/26MG TABLET. PO SCH ×2 (08:34→20:05)
[2020-08-07] MEDS: ATORVASTATIN CALCIUM 10 MG TABLET. PO SCH (08:35)
[2020-08-07] MEDS: CALCITRIOL 0.25 MCG CAPSULE. PO SCH (08:35)
[2020-08-07] MEDS: APIXABAN 5 MG TABLET. PO SCH ×2 (08:35→20:05)
[2020-08-07] MEDS: ALLOPURINOL 100 MG TABLET. PO SCH (08:35)
[2020-08-07] MEDS: CARVEDILOL 6.25 MG TABLET. PO SCH ×2 (08:35→16:49)
[2020-08-07] MEDS: PANTOPRAZOLE IV PUSH 40 MG VIAL. IVP SCH (08:36)
[2020-08-07 10:14] VITALS: BP 131/60
--- NOTE | 2020-08-07 10:27 | PDOC ---
[employer] PROGRESS NOTE Date of Service DOS: DATE: 08/07/20 TIME: 10:22 Chief Complaint Chief Complaint VTE Prophylaxis Ordered VTE Prophylaxis Devices: No VTE Pharmacological Prophylaxi: Yes Assessment/Plan Assessment/Plan impression acute esophageal obstruction //Dysphagia- differential includes: stricture, malignancy, achalasia, Falls Shortness of breath/ cardiomyopathy moderate pulmonary hypertension. PA pressure was estimated at 47 mmHg.ejection fraction is severely impaired. EF 25% recent echo global hypokinesis of the left ventricle. Htn - controlled dm2 controlled ESRD on HD MWF paroxysmal afib on eliquis, carvedilol h/o left renal Ca s/p nephrectomy rt toe chronic wound Esophageal tumor EGD 08/04 partially obstructing esophageal tumor in lower third of esophagus medication gel in esophagus - removed gastritis 4 mm nodule identified in the left lingula. Follow-up effusions 2016 articulates with follow-up CT chest in 6 months. cognitive decline pmh A Fib, CHF, NICM, HTN, HLD, DM, CAD, pneumonia, CVA w/ left-sided weakness, OA, anxiety, ESRD on HD, RCC s/p left nephrectomy, plan nephrology consult gi consult npo dvt prophylaxis cardiology consult tele bed EGD REVIEWED ADAT await pathology ct chest / abd/ pelvis ///mass 08-06 EATING BETTER, on dialysis He has been able to eat nor drink adequately due to the vomiting. He does occasionally has epigastric discomfort. No fever or chills D/W RN Justifications for Admission General Conditions Other justification for admit: SWALLOWING PROBLEMS History of Present Illness History of Present Illness 08/07/2020 Tolerating clears. Advance diet as tolerated pending CT abdomen pelvis IV contrast for malignancy work-up. No concerns from nursing at this time. Patient's chart, labs, images were reviewed and discussed with RN Identification/Chief Complaint Chief Complaint UNABLE TO SWALLW SOLIDS X 2 DAYS History of Present Illness History of Present Illness 74 yo male admitted for complains of vomiting.poor recall. pt was at [facility] and transferred to [facility] for further GI workup. Reports that in the last 3 dayS he has been having episode that when he eats just even a few bites he complained that it gets stuck midway and eventually vomits He has been able to eat nor drink adequately due to the vomiting. He does occasionally has epigastric discomfort. No fever or chills THIS STARTED after eating meat 2 days ago Past Medical History Past Medical History Past Medical History Cardiovascular: AFIB, CAD, CHF, HTN, [place], Hyperlipidemia, cardiomyopathy Pulmonary: Pneumonia CENTRAL NERVOUS SYSTEM: CVA GI: No pertinent hx Heme/Onc: Anemia NOS Psych: No pertinent hx Musculoskeletal: Osteoarthritis Rheumatologic: Gout Infectious disease: No pertinent hx Renal/: Chronic renal failure, Other Endocrine: Diabetes Past Surgical History Past Surgical History: Cataract Removal, Other Family History Family History: Diabetes, Heart Disease, Hypertension Social History ALCOHOL: none Drugs: None Cardiovascular: AFIB, CAD, CHF, HTN, [place], Hyperlipidemia Pulmonary: Pneumonia CENTRAL NERVOUS SYSTEM: CVA GI: No pertinent hx Heme/Onc: Anemia NOS Psych: No pertinent hx Rheumatologic: Gout Infectious disease: No pertinent hx Renal/: Chronic renal failure, Other Endocrine: Diabetes, Hyperparathyroidism Past Surgical History Past Surgical History: Cataract Removal, Other Family History Family History: Diabetes, Heart Disease, Hypertension Social History Smoke: No ALCOHOL: none Drugs: None Vitals/I&O Vitals/I&O: Vital Signs Date Time Temp Pulse Resp B/P (MAP) Pulse Ox O2 Delivery O2 Flow Rate FiO2 08/07/20 10:14 96.3 62 16 131/60 (83) 97 Room Air 96.3 08/06/20 19:26 2 I & O 08/06/20 08/06/20 08/07/20 15:00 23:00 07:00 Intake Total 240 ml 50 ml Balance 240 ml 50 ml Physical Exam General: Alert, Oriented X3, Cooperative, No acute distress Heart: Regular rate, Normal S1, Normal S2 Lungs: Clear, Other Abdomen: Normal bowel sounds, Soft, No tenderness Extremities: No clubbing, No cyanosis, No edema Skin: No breakdown Labs Labs: Laboratory Tests Test 08/07/20 05:10 White Blood Count 4.6 x10^3/uL (4.0-11.0) Red Blood Count 2.78 x10^6/uL (4.30-5.70) Hemoglobin 9.2 g/dL (13.0-17.5) Hematocrit 28.5 % (39.0-53.0) Mean Corpuscular Volume 103 fL (79-100) Mean Corpuscular Hemoglobin 33 pg (25-35) Mean Corpuscular Hemoglobin Concent 32 g/dL (31-37) Red Cell Distribution Width 15.9 % (11.5-14.5) Platelet Count 126 x10^3/uL (140-400) Neutrophils (%) (Auto) 73 % (31-73) Lymphocytes (%) (Auto) 17 % (24-48) Monocytes (%) (Auto) 7 % (0-9) Eosinophils (%) (Auto) 2 % (0-3) Basophils (%) (Auto) 1 % (0-3) Neutrophils # (Auto) 3.4 x10^3/uL (1.8-7.7) Lymphocytes # (Auto) 0.8 x10^3/uL (1.0-4.8) Monocytes # (Auto) 0.3 x10^3/uL (0.0-1.1) Eosinophils # (Auto) 0.1 x10^3/uL (0.0-0.7) Basophils # (Auto) 0.0 x10^3/uL (0.0-0.2) Sodium Level 140 mmol/L (136-145) Potassium Level 4.1 mmol/L (3.5-5.1) Chloride Level 101 mmol/L (98-107) Carbon Dioxide Level 32 mmol/L (21-32) Anion Gap 7 (6-14) Blood Urea Nitrogen 24 mg/dL (8-26) Creatinine 5.3 mg/dL (0.7-1.3) Estimated GFR (Cockcroft-Gault) 10.7 BUN/Creatinine Ratio 5 (6-20) Glucose Level 114 mg/dL (70-99) Calcium Level 9.1 mg/dL (8.5-10.1) Total Bilirubin 0.4 mg/dL (0.2-1.0) Aspartate Amino Transf (AST/SGOT) 12 U/L (15-37) Alanine Aminotransferase (ALT/SGPT) 12 U/L (16-63) Alkaline Phosphatase 79 U/L (46-116) Total Protein 6.4 g/dL (6.4-8.2) Albumin 3.1 g/dL (3.4-5.0) Albumin/Globulin Ratio 0.9 (1.0-1.7) Comment Review of Relevant I have reviewed the following items jennifer (where applicable) has been applied. Justifications for Admission General Conditions Other justification for admit: SWALLOWING PROBLEMS Other Justification JASWANT GARVEY MD Aug 07, 2020 10:27
[2020-08-07] MEDS ORDERED: IOHEXOL 300 MG/ML 100ML VIAL. IV ONE (10:45)
[2020-08-07] MEDS ORDERED: IOHEXOL 240 MG/ML 50ML VIAL. PO ONE (10:45)
--- NOTE | 2020-08-07 10:55 | PDOC ---
DATE OF SERVICE: DOS: DATE: 08/07/20 TIME: 10:54 SUBJECTIVE ROS Follow-up for ESRD on hemodialysis Saturday Patient denies any further nausea or vomiting at this time CVS: no Orthopnea, no CP RESP: no SOB, no MCDANIEL GI: no Nausea, no Vomiting : no Dysuria, no Urgency OBJECTIVE Vital Signs Vital Signs Date Time Temp Pulse Resp B/P (MAP) Pulse Ox O2 Delivery O2 Flow Rate FiO2 08/07/20 10:14 96.3 62 16 131/60 (83) 97 Room Air 96.3 08/06/20 19:26 2 I & 0 Intake and Output 08/07/20 07:00 Intake Total 290 ml Balance 290 ml Intake Oral 290 ml PHYSICAL EXAM Physical Exam GEN: Awake, Oriented x 3, In no distress EYES: Vision Unchanged, Conjunctiva Normal EN: No EN Drainage, Mucous Membranes m oist NECK: no JVD, no JVP, Supple, no Thyromegaly CVS: S1S2, ? Murmur, No Gallop, No Rub,no Edema RESP: no Rales, no Rhonchi,no Acc. Muscle Use GI: BS + ve, NO Bruit, Non Tender, Non Distended : no CVA tenderness, no Suprapubic Tenderness DIAGNOSIS/ASSESSMENT Assessment & Plan DIAGNOSIS/ASSESSMENT Assessment & Plan ESRD: Current fluid and E-lyte status does not necessitate emergent need for dialysis. Will re-evaluate for dialysis in the am and continue on MWF schedule. ANEMIA; Aranap as ordered, Transfuse with next HD as needed HTN: Current BP meds as reviewed. See orders for changes. BONE & MINERAL: Continue current regimen of phosphate binders. Monitor p.o. intake and trend of phosphorus prior to changes in the same. Patient has had a significant weight loss in the recent past we will hence proceed with CT scan as ordered given prior history of kidney cancers. Thyroid levels are normal. Await esophageal biopsies. CT scans as ordered Discussed Plan of Care with family (RABIA) at bedside over the phone COMMENT/RELEVANT DATA Meds Current Medications Medications (Trade) Dose Ordered Sig/Esperanza Start Time Stop Time Status Last Admin Dose Admin Allopurinol (Zyloprim) 200 mg DAILY 08/04/20 12:00 08/07/20 08:35 200 MG Apixaban (Eliquis) 5 mg BID 08/05/20 21:00 08/07/20 08:35 5 MG Atorvastatin Calcium (Lipitor) 5 mg DAILY 08/04/20 12:00 08/07/20 08:35 5 MG Calcitriol (Rocaltrol) 0.25 mcg DAILY 08/04/20 12:00 08/07/20 08:35 0.25 MCG Carvedilol (Coreg) 3.125 mg BIDWMEALS 08/06/20 08:00 08/07/20 08:35 3.125 MG Citalopram Hydrobromide (CeleXA) 20 mg DAILY 08/04/20 12:00 08/07/20 08:34 20 MG Info (CONTRAST GIVEN -- Rx MONITORING) 1 each PRN DAILY PRN 08/06/20 15:30 08/08/20 15:29 Info (PHARMACY MONITORING -- do not chart) 1 each PRN DAILY PRN 08/05/20 08:00 Iohexol (Omnipaque 240 Mg/ml) 50 ml 1X ONCE 08/07/20 10:45 08/07/20 10:46 DC Iohexol (Omnipaque 300 Mg/ml) 60 ml 1X ONCE 08/07/20 10:45 08/07/20 10:46 DC Metoprolol Tartrate (Lopressor Vial) 2.5 mg Q6HRS 08/04/20 16:00 08/05/20 08:09 DC 08/05/20 00:32 2.5 MG Pantoprazole Sodium (PROTONIX VIAL for IV PUSH) 40 mg DAILYAC 08/04/20 09:00 08/07/20 08:36 40 MG Propofol (Diprivan) 200 mg STK-MED ONCE 08/04/20 12:34 08/04/20 12:35 DC Sacubitril/ Valsartan (Entresto 24 Mg-26 Mg) 1 tab BID 08/04/20 12:00 08/07/20 08:34 1 TAB Sevelamer Carbonate (Renvela) 3,200 mg TIDWMEALS 08/04/20 12:00 08/05/20 18:09 3,200 MG Sodium Chloride 1,000 ml @ 400 mls/hr Q2H30M PRN 08/05/20 08:00 08/05/20 19:59 DC Lab Laboratory Tests Test 08/07/20 05:10 White Blood Count 4.6 x10^3/uL (4.0-11.0) Red Blood Count 2.78 x10^6/uL (4.30-5.70) Hemoglobin 9.2 g/dL (13.0-17.5) Hematocrit 28.5 % (39.0-53.0) Mean Corpuscular Volume 103 fL (79-100) Mean Corpuscular Hemoglobin 33 pg (25-35) Mean Corpuscular Hemoglobin Concent 32 g/dL (31-37) Red Cell Distribution Width 15.9 % (11.5-14.5) Platelet Count 126 x10^3/uL (140-400) Neutrophils (%) (Auto) 73 % (31-73) Lymphocytes (%) (Auto) 17 % (24-48) Monocytes (%) (Auto) 7 % (0-9) Eosinophils (%) (Auto) 2 % (0-3) Basophils (%) (Auto) 1 % (0-3) Neutrophils # (Auto) 3.4 x10^3/uL (1.8-7.7) Lymphocytes # (Auto) 0.8 x10^3/uL (1.0-4.8) Monocytes # (Auto) 0.3 x10^3/uL (0.0-1.1) Eosinophils # (Auto) 0.1 x10^3/uL (0.0-0.7) Basophils # (Auto) 0.0 x10^3/uL (0.0-0.2) Sodium Level 140 mmol/L (136-145) Potassium Level 4.1 mmol/L (3.5-5.1) Chloride Level 101 mmol/L (98-107) Carbon Dioxide Level 32 mmol/L (21-32) Anion Gap 7 (6-14) Blood Urea Nitrogen 24 mg/dL (8-26) Creatinine 5.3 mg/dL (0.7-1.3) Estimated GFR (Cockcroft-Gault) 10.7 BUN/Creatinine Ratio 5 (6-20) Glucose Level 114 mg/dL (70-99) Calcium Level 9.1 mg/dL (8.5-10.1) Total Bilirubin 0.4 mg/dL (0.2-1.0) Aspartate Amino Transf (AST/SGOT) 12 U/L (15-37) Alanine Aminotransferase (ALT/SGPT) 12 U/L (16-63) Alkaline Phosphatase 79 U/L (46-116) Total Protein 6.4 g/dL (6.4-8.2) Albumin 3.1 g/dL (3.4-5.0) Albumin/Globulin Ratio 0.9 (1.0-1.7) Results All relevant outside records, renal labs, imaging studies, telemetry/EKG's were reviewed. Justicifation of Admission Dx: Justifications for Admission: Justification of Admission Dx: Yes CASSY SIERRA MD Aug 07, 2020 10:55
[2020-08-07 14:35] VITALS: BP 113/59
[2020-08-07 19:14] VITALS: BP 123/58
[2020-08-07 23:22] VITALS: BP 102/55
--- NOTE | 2020-08-07 23:41 | RAD ---
PQRS Compliance Statement: One or more of the following individualized dose reduction techniques were utilized for this examinat ion: 1. Automated exposure control 2. Adjustment of the mA and/or kV according to patient size 3. Use of iterative reconstruction technique CT CHEST+ABD+PELVIS W Clinical Indication: Reason: History of kidney cancer, significant recent weight loss / Comparison: CT chest abdomen and pelvis without contrast January 12, 2018. Technique: Helical CT imaging of the abdomen and pelvis is performed after 60 cc of Omnipaque 300 IV contrast. Oral contrast also administered. Findings: Heterogeneous multinodular thyroid gland. Left chest cardiac event monitor. There are several subcent imeter mediastinal lymph nodes. There is a 2.6 cm subcarinal lymph node. The great vessels are normal caliber. Three-vessel coronary artery disease. There is moderate cardiomegaly. Small pericardial eff usion. Calcific aortic valve stenosis. No central pulmonary embolus. There are moderate bilateral pleural effusions. The central airways are patent. There is mild wilmer sive atelectasis adjacent to the pleural effusions. There is groundglass opacity in the superior segm ent of the left lower lobe that may be infectious/inflammatory. There are a few calcified granulomas. There is mild perihepatic and perisplenic ascites. Calcified granulomas in the spleen. Atheroscleroti c abdominal aorta, no aneurysm. The gallbladder, pancreas, and adrenal glands are normal. The left kidney is absent. The right kidney is atrophic. There is an ill-defined hypodensity exophyti c from the right kidney measuring 3 cm. There is a similar exophytic hypodensity more superiorly lindsey uring 2.1 cm. There is right perinephric stranding. There is no obvious abnormality of the stomach. There is no dilated small bowel. The appendix is norm al. Scattered stool in the colon. No colon wall thickening is identified. There is no abdominal adeno kartik. Urinary bladder is normal. Prostate and seminal vesicles are normal. There is presacral edema. There is degenerative spondylosis of the thoracolumbar spine. There is thoracolumbar scoliosis. There is a metallic density associated with the right femoral head. There is old fracture of the sternum. IMPRESSION: 1. There are ill-defined exophytic hypodensities of the right kidney. These do not have appearance o f cysts. Cannot exclude solid masses. Recommend renal ultrasound. 2. Enlarged subcarinal lymph node. 3. Moderate bilateral pleural effusions. 4. Groundglass opacity superior segment of left lower lobe may be infectious/inflammatory. 5. Small pericardial effusion. 6. Moderate cardiomegaly. 7. Minimal upper abdominal ascites. 8. Multinodular thyroid gland. Electronically signed by: Tyler Garcia MD (08/07/2020 11:39 PM) [facility]ITAL[facility]
[2020-08-08 03:59] VITALS: BP 118/67
[2020-08-08 07:00] VITALS: BP 140/69
[2020-08-08] MEDS ORDERED: DIALYSIS PATIENT. MC PRN (07:45)
[2020-08-08] MEDS ORDERED: IV NORMAL SALINE 1000ML BAG 1,000 ML IV PRN ×2 (07:45)
[2020-08-08] MEDS: SEVELAMER CARBONATE 800 MG TABLET. PO SCH ×3 (08:00→17:00)
[2020-08-08] MEDS: CARVEDILOL 6.25 MG TABLET. PO SCH ×2 (08:00→17:38)
--- NOTE | 2020-08-08 09:15 | PDOC ---
DATE OF SERVICE DATE: 08/08/20 TIME: 09:14 SUBJECTIVE ROS Seen on dialysis, No acute concerns or complaints voiced by patient OBJECTIVE Vital Signs Vital Signs Date Time Temp Pulse Resp B/P (MAP) Pulse Ox O2 Delivery O2 Flow Rate FiO2 08/08/20 07:00 97.6 64 14 140/69 (92) 94 Room Air 97.6 08/07/20 20:27 2 I & 0 Intake and Output 08/08/20 07:00 Intake Total 476 ml Output Total 0 ml Balance 476 ml Intake Oral 476 ml Output Urine Total 0 ml # Bowel Movements 1 PHYSICAL EXAM Physical Exam GEN: Awake, Oriented x 3, In no distress EYES: Vision Unchanged, Conjunctiva Normal EN: No EN Drainage, Mucous Membranes m oist NECK: no JVD, no JVP, Supple, no Thyromegaly CVS: S1S2, ? Murmur, No Gallop, No Rub,no Edema RESP: no Rales, no Rhonchi,no Acc. Muscle Use GI: BS + ve, NO Bruit, Non Tender, Non Distended : no CVA tenderness, no Suprapubic Tenderness DIAGNOSIS/ASSESSMENT Assessment & Plan ESRD: MWF schedule.Seen on Dialysis, Tolerating well. Continue as ordered. Waldo Solis Esophageal tumor - path from EGD 08/04 pending Hx of Renal Cancer- CT scan- ill-defined exophytic hypodensities of the right kidney. These do not have appearance of cysts. Cannot exclude solid masses. Recommend renal ultrasound. Moderate bilateral pleural effusions. Groundglass opacity superior segment of left lower lobe may be infectious/inflammatory. Anemia- If maignanacy suspected defer use of HENRY to Oncology A Fib HTN COMMENT/RELEVANT DATA Meds Current Medications Medications (Trade) Dose Ordered Sig/Esperanza Start Time Stop Time Status Last Admin Dose Admin Allopurinol (Zyloprim) 200 mg DAILY 08/04/20 12:00 08/07/20 08:35 200 MG Apixaban (Eliquis) 5 mg BID 08/05/20 21:00 08/07/20 20:05 5 MG Atorvastatin Calcium (Lipitor) 5 mg DAILY 08/04/20 12:00 08/07/20 08:35 5 MG Calcitriol (Rocaltrol) 0.25 mcg DAILY 08/04/20 12:00 08/07/20 08:35 0.25 MCG Carvedilol (Coreg) 3.125 mg BIDWMEALS 08/06/20 08:00 08/07/20 08:35 3.125 MG Citalopram Hydrobromide (CeleXA) 20 mg DAILY 08/04/20 12:00 08/07/20 08:34 20 MG Info (CONTRAST GIVEN -- Rx MONITORING) 1 each PRN DAILY PRN 08/06/20 15:30 08/08/20 15:29 Info (PHARMACY MONITORING -- do not chart) 1 each PRN DAILY PRN 08/08/20 07:45 Iohexol (Omnipaque 240 Mg/ml) 50 ml 1X ONCE 08/07/20 10:45 08/07/20 10:46 DC 08/07/20 10:45 50 ML Iohexol (Omnipaque 300 Mg/ml) 60 ml 1X ONCE 08/07/20 10:45 08/07/20 10:46 DC 08/07/20 10:45 60 ML Metoprolol Tartrate (Lopressor Vial) 2.5 mg Q6HRS 08/04/20 16:00 08/05/20 08:09 DC 08/05/20 00:32 2.5 MG Pantoprazole Sodium (PROTONIX VIAL for IV PUSH) 40 mg DAILYAC 08/04/20 09:00 08/07/20 08:36 40 MG Propofol (Diprivan) 200 mg STK-MED ONCE 08/04/20 12:34 08/04/20 12:35 DC Sacubitril/ Valsartan (Entresto 24 Mg-26 Mg) 1 tab BID 08/04/20 12:00 08/07/20 20:05 1 TAB Sevelamer Carbonate (Renvela) 3,200 mg TIDWMEALS 08/04/20 12:00 08/05/20 18:09 3,200 MG Sodium Chloride 1,000 ml @ 400 mls/hr Q2H30M PRN 08/08/20 07:45 08/08/20 19:44 Results All relevant outside records, renal labs, imaging studies, telemetry/EKG's were reviewed. Justicifation of Admission Dx: Justifications for Admission: Justification of Admission Dx: Yes TREVIN CERNA MD Aug 08, 2020 09:15
--- NOTE | 2020-08-08 10:05 | PDOC ---
Date of Service: DATE: 08/08/20 TIME: 10:02 Objective: Objective: D/w nurse - tolerating diet well. Vital Signs: Vital Signs Date Time Temp Pulse Resp B/P (MAP) Pulse Ox O2 Delivery O2 Flow Rate FiO2 08/08/20 08:00 Room Air 08/08/20 07:00 97.6 64 14 140/69 (92) 94 97.6 08/07/20 20:27 2 Imaging: C/A/P CT 08/06 IMPRESSION: 1. There are ill-defined exophytic hypodensities of the right kidney. These do not have appearance of cysts. Cannot exclude solid masses. Recommend renal ultrasound. 2. Enlarged subcarinal lymph node. 3. Moderate bilateral pleural effusions. 4. Groundglass opacity superior segment of left lower lobe may be infectious/inflammatory. 5. Small pericardial effusion. 6. Moderate cardiomegaly. 7. Minimal upper abdominal ascites. 8. Multinodular thyroid gland. PE: GEN: dialyzing LUNGS: clear anteriorly, room air HEART: irregular ABD: S/ND/NT NEURO/PSYCH: cheerful, pleasantly confused A/P: Esophageal tumor - path from EGD 08/04 pending Macrocytic anemia - normal B12 in past A Fib, NICM, ESRD on HD, dementia -- Awaiting biopsy result. PO PPI. Justicifation of Admission Dx: Justifications for Admission: Justification of Admission Dx: Yes MARY ELLEN HOOD Aug 08, 2020 10:05
--- NOTE | 2020-08-08 12:45 | NUR ---
SS following up with discharge planning. SS reviewed pt chart and discussed with pt RN. Pt is currently on room air. COVID19 negative. PT/OT recommended [facility]. Pt has new right kidney mass. Currently awaiting oncology to discuss with pt. Pt out of the room at dialysis at this time. SS will continue to follow for discharge planning.
--- NOTE | 2020-08-08 13:56 | PDOC ---
[employer] PROGRESS NOTE Date of Service DOS: DATE: 08/08/20 TIME: 13:55 Chief Complaint Chief Complaint VTE Prophylaxis Ordered VTE Prophylaxis Devices: No VTE Pharmacological Prophylaxi: Yes Assessment/Plan Assessment/Plan impression acute esophageal obstruction //Dysphagia- differential includes: stricture, malignancy, achalasia, Falls Shortness of breath/ cardiomyopathy moderate pulmonary hypertension. PA pressure was estimated at 47 mmHg.ejection fraction is severely impaired. EF 25% recent echo global hypokinesis of the left ventricle. Htn - controlled dm2 controlled ESRD on HD MWF paroxysmal afib on eliquis, carvedilol h/o left renal Ca s/p nephrectomy rt toe chronic wound Esophageal tumor EGD 08/04 partially obstructing esophageal tumor in lower third of esophagus medication gel in esophagus - removed gastritis 4 mm nodule identified in the left lingula. Follow-up effusions 2016 articulates with follow-up CT chest in 6 months. cognitive decline pmh A Fib, CHF, NICM, HTN, HLD, DM, CAD, pneumonia, CVA w/ left-sided weakness, OA, anxiety, ESRD on HD, RCC s/p left nephrectomy, plan nephrology consult gi consult npo dvt prophylaxis cardiology consult tele bed EGD REVIEWED ADAT await pathology ct chest / abd/ pelvis ///mass 08-06 EATING BETTER, on dialysis He has been able to eat nor drink adequately due to the vomiting. He does occasionally has epigastric discomfort. No fever or chills D/W RN Justifications for Admission General Conditions Other justification for admit: SWALLOWING PROBLEMS History of Present Illness History of Present Illness 08/08, diet advacend still weak will need PT and OT and likely skilled, referral placed, swab for COVID 08/07/2020 Tolerating clears. Advance diet as tolerated pending CT abdomen pelvis IV contrast for malignancy work-up. No concerns from nursing at this time. Patient's chart, labs, images were reviewed and discussed with RN Identification/Chief Complaint Chief Complaint UNABLE TO SWALLW SOLIDS X 2 DAYS History of Present Illness History of Present Illness 74 yo male admitted for complains of vomiting.poor recall. pt was at [facility] and transferred to [facility] for further GI workup. Reports that in the last 3 dayS he has been having episode that when he eats just even a few bites he complained that it gets stuck midway and eventually vomits He has been able to eat nor drink adequately due to the vomiting. He does occasionally has epigastric discomfort. No fever or chills THIS STARTED after eating meat 2 days ago Past Medical History Past Medical History Past Medical History Cardiovascular: AFIB, CAD, CHF, HTN, [place], Hyperlipidemia, cardiomyopathy Pulmonary: Pneumonia CENTRAL NERVOUS SYSTEM: CVA GI: No pertinent hx Heme/Onc: Anemia NOS Psych: No pertinent hx Musculoskeletal: Osteoarthritis Rheumatologic: Gout Infectious disease: No pertinent hx Renal/: Chronic renal failure, Other Endocrine: Diabetes Past Surgical History Past Surgical History: Cataract Removal, Other Family History Family History: Diabetes, Heart Disease, Hypertension Social History ALCOHOL: none Drugs: None Cardiovascular: AFIB, CAD, CHF, HTN, [place], Hyperlipidemia Pulmonary: Pneumonia CENTRAL NERVOUS SYSTEM: CVA GI: No pertinent hx Heme/Onc: Anemia NOS Psych: No pertinent hx Rheumatologic: Gout Infectious disease: No pertinent hx Renal/: Chronic renal failure, Other Endocrine: Diabetes, Hyperparathyroidism Past Surgical History Past Surgical History: Cataract Removal, Other Family History Family History: Diabetes, Heart Disease, Hypertension Social History Smoke: No ALCOHOL: none Drugs: None Vitals/I&O Vitals/I&O: Vital Signs Date Time Temp Pulse Resp B/P (MAP) Pulse Ox O2 Delivery O2 Flow Rate FiO2 08/08/20 08:00 Room Air 08/08/20 07:00 97.6 64 14 140/69 (92) 94 97.6 08/07/20 20:27 2 I & O 08/07/20 08/07/20 08/08/20 15:00 23:00 07:00 Intake Total 236 ml 240 ml 0 ml Output Total 0 ml Balance 236 ml 240 ml 0 ml Physical Exam General: Alert, Oriented X3, Cooperative, No acute distress Heart: Regular rate, Normal S1, Normal S2 Lungs: Clear, Other Abdomen: Normal bowel sounds, Soft, No tenderness Extremities: No clubbing, No cyanosis, No edema Skin: No breakdown Comment Review of Relevant I have reviewed the following items jennifer (where applicable) has been applied. Justifications for Admission General Conditions Other justification for admit: SWALLOWING PROBLEMS Other Justification RICKEY ISRAEL MD Aug 08, 2020 13:56
[2020-08-08] MEDS: CITALOPRAM 20 MG TABLET. PO SCH (14:36)
[2020-08-08] MEDS: APIXABAN 5 MG TABLET. PO SCH ×2 (14:36→20:24)
[2020-08-08] MEDS: CALCITRIOL 0.25 MCG CAPSULE. PO SCH (14:36)
[2020-08-08] MEDS: ALLOPURINOL 100 MG TABLET. PO SCH (14:37)
[2020-08-08] MEDS: SACUBITRIL/VALSARTAN 24/26MG TABLET. PO SCH ×2 (14:37→20:24)
[2020-08-08] MEDS: ATORVASTATIN CALCIUM 10 MG TABLET. PO SCH (14:37)
[2020-08-08 15:00] VITALS: BP 131/66
--- NOTE | 2020-08-08 18:21 | PATHOLOGY ---
[facility] Accession Number: [id number] . 01 Material submitted: . esophagus, E-G Junction - GE JUNCTION MASS BIOPSY . 01 Clinical history: . DYSPHAGIA EGD VOMITING, ESOPHAGEAL OBSTRUCTION . . 02 Diagnosis: Gastroesophageal junction mass, biopsies: - Adenocarcinoma, moderately-well differentiated, ulcerated. . (JPM:mm; 08/08/2020) [facility] 08/08/2020 1243 Local . 02 Comment: Sections of the gastroesophageal junction mass biopsy reveal a malignant epithelial neoplasm. The latter is comprised of crowded glands which are lined by atypical cells having enlarged, rounded to ovoid nuclei containing prominent nucleoli. The malignant glands focally appear to infiltrate a reactive stroma. There is focal necroinflammatory exudate consistent with ulceration. The morphologic findings are supportive of the diagnosis of a moderately-well differentiated adenocarcinoma. The case is also examined by Dr. Theodore Skinner, who concurs with the diagnosis. . (JPM:mm; 08/08/2020) . 02 Electronically signed: . Byron Khan MD, Pathologist NPI- [id number] . 01 Gross description: . The specimen is received in formalin, labeled "Mikie Hernandez", "GE junction mass biopsy". Received are multiple fragments of pale white soft tissue, ranging in size from 0.1 cm to 0.3 cm. The specimen is entirely submitted in cassette A1.(SNA; 08/05/2020) [facility] 08/08/2020 1235 Local . 02 Pathologist provided ICD-10: C16.0 . 02 CPT . 746573 Specimen Comment: A courtesy copy of this report has been sent to [phone] Specimen Comment: [phone], Specimen Comment: Report sent to ,DR OROZCO / DR GARCIA Performed at: [address] [facility] [id number] MD Jayden Steele MD Phone: [phone] Performed at: 02 [facility] [address] [place], [place] [id number] MD Byron Khan MD Phone: [phone]
[2020-08-08 19:25] VITALS: BP 128/65
[2020-08-08 22:40] VITALS: BP 107/61
[2020-08-09 03:15] VITALS: BP 131/68
[2020-08-09 07:00] VITALS: BP 123/62
[2020-08-09] MEDS: SEVELAMER CARBONATE 800 MG TABLET. PO SCH ×3 (08:00→17:00)
[2020-08-09] MEDS: ATORVASTATIN CALCIUM 10 MG TABLET. PO SCH (08:57)
[2020-08-09] MEDS: PANTOPRAZOLE 40 MG TABLET.DR. PO SCH (08:57)
[2020-08-09] MEDS: ALLOPURINOL 100 MG TABLET. PO SCH (08:58)
[2020-08-09] MEDS: CITALOPRAM 20 MG TABLET. PO SCH (08:58)
[2020-08-09] MEDS: SACUBITRIL/VALSARTAN 24/26MG TABLET. PO SCH ×2 (08:58→21:06)
[2020-08-09] MEDS: APIXABAN 5 MG TABLET. PO SCH ×2 (08:58→21:06)
[2020-08-09] MEDS: CARVEDILOL 6.25 MG TABLET. PO SCH ×2 (08:58→17:21)
[2020-08-09] MEDS: CALCITRIOL 0.25 MCG CAPSULE. PO SCH (08:58)
--- NOTE | 2020-08-09 09:22 | PDOC ---
DATE OF SERVICE DATE: 08/09/20 TIME: 09:19 SUBJECTIVE ROS stable OBJECTIVE Vital Signs Vital Signs Date Time Temp Pulse Resp B/P (MAP) Pulse Ox O2 Delivery O2 Flow Rate FiO2 08/09/20 08:58 60 123/62 08/09/20 07:00 97.4 18 92 Room Air 97.4 08/08/20 19:42 2 I & 0 Intake and Output 08/09/20 07:00 Intake Total 320 ml Output Total 0 ml Balance 320 ml Intake Oral 320 ml Output Urine Total 0 ml # Bowel Movements 1 PHYSICAL EXAM Physical Exam GEN: Awake, Oriented x 3, In no distress EYES: Vision Unchanged, Conjunctiva Normal EN: No EN Drainage, Mucous Membranes m oist NECK: no JVD, no JVP, Supple, no Thyromegaly CVS: S1S2, ? Murmur, No Gallop, No Rub,no Edema RESP: no Rales, no Rhonchi,no Acc. Muscle Use GI: BS + ve, NO Bruit, Non Tender, Non Distended : no CVA tenderness, no Suprapubic Tenderness DIAGNOSIS/ASSESSMENT Assessment & Plan ESRD: MWF schedule, currently no indication today Acute esophageal obstruction //Dysphagia s/p EGD 08/04 - Dx esophageal adenocarcinoma, Hx of Renal Cancer- CT scan- ill-defined exophytic hypodensities of the right kidney. These do not have appearance of cysts. Cannot exclude solid masses. Recommend renal ultrasound. Moderate bilateral pleural effusions. Groundglass opacity superior segment of left lower lobe may be infectious/inflammatory. Anemia- HENRY per Oncology . Pt Dx with Esophageal Adenocarcinoma A Fib HTN COMMENT/RELEVANT DATA Meds Current Medications Medications (Trade) Dose Ordered Sig/Esperanza Start Time Stop Time Status Last Admin Dose Admin Allopurinol (Zyloprim) 200 mg DAILY 08/04/20 12:00 08/09/20 08:58 200 MG Apixaban (Eliquis) 5 mg BID 08/05/20 21:00 08/09/20 08:58 5 MG Atorvastatin Calcium (Lipitor) 5 mg DAILY 08/04/20 12:00 08/09/20 08:57 5 MG Calcitriol (Rocaltrol) 0.25 mcg DAILY 08/04/20 12:00 08/09/20 08:58 0.25 MCG Carvedilol (Coreg) 3.125 mg BIDWMEALS 08/06/20 08:00 08/09/20 08:58 3.125 MG Citalopram Hydrobromide (CeleXA) 20 mg DAILY 08/04/20 12:00 08/09/20 08:58 20 MG Info (CONTRAST GIVEN -- Rx MONITORING) 1 each PRN DAILY PRN 08/06/20 15:30 08/08/20 15:29 DC Info (PHARMACY MONITORING -- do not chart) 1 each PRN DAILY PRN 08/08/20 07:45 Iohexol (Omnipaque 240 Mg/ml) 50 ml 1X ONCE 08/07/20 10:45 08/07/20 10:46 DC 08/07/20 10:45 50 ML Iohexol (Omnipaque 300 Mg/ml) 60 ml 1X ONCE 08/07/20 10:45 08/07/20 10:46 DC 08/07/20 10:45 60 ML Metoprolol Tartrate (Lopressor Vial) 2.5 mg Q6HRS 08/04/20 16:00 08/05/20 08:09 DC 08/05/20 00:32 2.5 MG Pantoprazole Sodium (PROTONIX VIAL for IV PUSH) 40 mg DAILYAC 08/04/20 09:00 08/08/20 10:06 DC 08/07/20 08:36 40 MG Pantoprazole Sodium (Protonix) 40 mg DAILYAC 08/09/20 07:30 08/09/20 08:57 40 MG Propofol (Diprivan) 200 mg STK-MED ONCE 08/04/20 12:34 08/04/20 12:35 DC Sacubitril/ Valsartan (Entresto 24 Mg-26 Mg) 1 tab BID 08/04/20 12:00 08/09/20 08:58 1 TAB Sevelamer Carbonate (Renvela) 3,200 mg TIDWMEALS 08/04/20 12:00 08/05/20 18:09 3,200 MG Sodium Chloride 1,000 ml @ 400 mls/hr Q2H30M PRN 08/08/20 07:45 08/08/20 19:44 DC Results All relevant outside records, renal labs, imaging studies, telemetry/EKG's were reviewed. Justicifation of Admission Dx: Justifications for Admission: Justification of Admission Dx: Yes ERYN,TREVIN MD Aug 09, 2020 09:22
--- NOTE | 2020-08-09 09:53 | PDOC ---
[employer] PROGRESS NOTE Date of Service DOS: DATE: 08/09/20 TIME: 09:53 Chief Complaint Chief Complaint acute esophageal obstruction - esophageal adenocarcinoma, //Dysphagia- weakness and Falls Shortness of breath/ cardiomyopathy moderate pulmonary hypertension. PA pressure was estimated at 47 mmHg.ejection fraction is severely impaired. EF 25% recent echo global hypokinesis of the left ventricle. Htn - controlled dm2 controlled ESRD on HD MWF paroxysmal afib on eliquis, carvedilol h/o left renal Ca s/p nephrectomy rt toe chronic wound Esophageal tumor EGD 08/04 partially obstructing esophageal tumor in lower third of esophagus medication gel in esophagus - removed gastritis 4 mm nodule identified in the left lingula. Follow-up effusions 2016 articulates with follow-up CT chest in 6 months. cognitive decline pmh A Fib, CHF, NICM, HTN, HLD, DM, CAD, pneumonia, CVA w/ left-sided weakness, OA, anxiety, ESRD on HD, RCC s/p left nephrectomy, Justifications for Admission General Conditions Other justification for admit: SWALLOWING PROBLEMS History of Present Illness History of Present Illness 08/09 , can transfer to skilled new adenocarcinoma of esophagus discussed, he would like treatment if available, he needs better nutrition and functional status at this time,. he his very weak and needs skilled consult Dr. Paez, plan PT and OT skilled, referral placed, 08/07/2020 Tolerating clears. Advance diet as tolerated pending CT abdomen pelvis IV contrast for malignancy work-up. No concerns from nursing at this time. Patient's chart, labs, images were reviewed and discussed with RN Identification/Chief Complaint Chief Complaint UNABLE TO SWALLW SOLIDS X 2 DAYS History of Present Illness History of Present Illness 74 yo male admitted for complains of vomiting.poor recall. pt was at [facility] and transferred to [facility] for further GI workup. Reports that in the last 3 dayS he has been having episode that when he eats just even a few bites he complained that it gets stuck midway and eventually vomits He has been able to eat nor drink adequately due to the vomiting. He does occasionally has epigastric discomfort. No fever or chills THIS STARTED after eating meat 2 days ago Past Medical History Past Medical History Past Medical History Cardiovascular: AFIB, CAD, CHF, HTN, [place], Hyperlipidemia, cardiomyopathy Pulmonary: Pneumonia CENTRAL NERVOUS SYSTEM: CVA GI: No pertinent hx Heme/Onc: Anemia NOS Psych: No pertinent hx Musculoskeletal: Osteoarthritis Rheumatologic: Gout Infectious disease: No pertinent hx Renal/: Chronic renal failure, Other Endocrine: Diabetes Past Surgical History Past Surgical History: Cataract Removal, Other Family History Family History: Diabetes, Heart Disease, Hypertension Social History ALCOHOL: none Drugs: None Cardiovascular: AFIB, CAD, CHF, HTN, [place], Hyperlipidemia Pulmonary: Pneumonia CENTRAL NERVOUS SYSTEM: CVA GI: No pertinent hx Heme/Onc: Anemia NOS Psych: No pertinent hx Rheumatologic: Gout Infectious disease: No pertinent hx Renal/: Chronic renal failure, Other Endocrine: Diabetes, Hyperparathyroidism Past Surgical History Past Surgical History: Cataract Removal, Other Family History Family History: Diabetes, Heart Disease, Hypertension Social History Smoke: No ALCOHOL: none Drugs: None Vitals/I&O Vitals/I&O: Vital Signs Date Time Temp Pulse Resp B/P (MAP) Pulse Ox O2 Delivery O2 Flow Rate FiO2 08/09/20 08:58 60 123/62 08/09/20 07:00 97.4 18 92 Room Air 97.4 08/08/20 19:42 2 I & O 08/08/20 08/08/20 08/09/20 14:57 22:57 06:57 Intake Total 120 ml 200 ml Output Total 0 ml Balance 0 ml 120 ml 200 ml Physical Exam General: Alert, Oriented X3, Cooperative, No acute distress Heart: Regular rate, Normal S1, Normal S2 Lungs: Clear, Other Abdomen: Normal bowel sounds, Soft, No tenderness Extremities: No clubbing, No cyanosis, No edema Skin: No breakdown Review of Systems Review of Systems: nausea and poor pO intake, Comment Review of Relevant I have reviewed the following items jennifer (where applicable) has been applied. Medications: Current Medications Medications (Trade) Dose Ordered Sig/Esperanza Route PRN Reason Start Time Stop Time Status Last Admin Dose Admin Pantoprazole Sodium (Protonix) 40 mg DAILYAC PO 08/09/20 07:30 08/09/20 08:57 Justifications for Admission General Conditions Other justification for admit: SWALLOWING PROBLEMS Other Justification RICKEY ISRAEL MD Aug 09, 2020 09:53
[2020-08-09 11:00] VITALS: BP 111/63
--- NOTE | 2020-08-09 11:16 | PDOC ---
Date of Service: DATE: 08/09/20 TIME: 11:13 Subjective: Subjective: Doing okay. Has to be careful eating. Objective: Objective: D/w nurse - tolerates full liquids but not GI soft. Also unable to tolerate large pills. Vital Signs: Vital Signs Date Time Temp Pulse Resp B/P (MAP) Pulse Ox O2 Delivery O2 Flow Rate FiO2 08/09/20 08:58 60 123/62 08/09/20 08:00 Room Air 08/09/20 07:00 97.4 18 92 97.4 08/08/20 19:42 2 Labs: Material submitted: . esophagus, E-G Junction - GE JUNCTION MASS BIOPSY Clinical history: . DYSPHAGIA EGD VOMITING, ESOPHAGEAL OBSTRUCTION Diagnosis: Gastroesophageal junction mass, biopsies: - Adenocarcinoma, moderately-well differentiated, ulcerated. Comment: Sections of the gastroesophageal junction mass biopsy reveal a malignant epithel ial neoplasm. The latter is comprised of crowded glands which are lined by atypical cells having enlarged, rounded to ovoid nuclei containing prominent nucleoli. The malignant glands focally appear to infiltrate a reactive stroma. There is focal necroinflammatory exudate consistent with ulceration. The morphologic findings are supportive of the diagnosis of a moderately-well differentiated adenocarcinoma. The case is also examined by Dr. Theodore Skinner, who concurs with the diagnosis. PE: GEN: NAD, up in chair watching tv LUNGS: clear anteriorly HEART: irregular ABD: soft, non-tender NEURO/PSYCH: pleasantly confused A/P: Esophageal tumor - path as above - adenocarcinoma -- Oncology consult pending. Consider Ensure, etc. w/ full liquids if not receiving. Justicifation of Admission Dx: Justifications for Admission: Justification of Admission Dx: Yes MARY ELLEN HOOD Aug 09, 2020 11:16
--- NOTE | 2020-08-09 12:19 | NUR ---
SS following up with discharge planning. SS reviewed pt chart and discussed with pt RN. Pt is currently on room air. COVID19 negative. PT/OT recommended correction unit. SS met with pt and spoke with pt's spouse, Jenn, , via phone. Discharge planning and correction unit discussed. Pt and spouse agreeable to correction unit and requested referral be phoned and faxed to [facility], ; fax [phone]. SS phoned and faxed referral as requested. SS will continue to follow for discharge planning.
--- NOTE | 2020-08-09 12:34 | PDOC2 ---
CONSULT Date of Consult Date of Consult DATE: 08/09/20 TIME: 12:24 Reason for Consult Reason for Consult: Esophageal cancer Referring Physician Referring Physician: Dr. Lyles Identification/Chief Complaint Chief Complaint Dysphagia Source Source: Caregiver, Chart review, Patient History of Present Illness Reason for Visit: Mikie Jones is a 74-year-old male with history of cardiomyopathy with EF 25%, coronary artery disease, type 2 diabetes, end-stage renal disease on hemodialysis and dementia who has been admitted to the hospital for further evaluation and management of dysphagia. Patient was accompanied by his spouse at bedside. He had recently developed difficulty swallowing and came to the ER at [facility] and was subsequently transferred here. Endoscopy showed a distal esophageal tumor. 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 Medical oncology consultation has been sought for further recommendations on management. The patient's currently deconditioned and discharged to nursing home facility has been planned. He does report recent decrease in oral intake and weight loss Past Medical History Cardiovascular: AFIB, CAD, CHF, HTN, Hyperlipidemia, Valve insufficiency, Pulmonary hypertension, Other (NICM; PAD) Pulmonary: Other (SERENITY- noncompliant with CPAP) CENTRAL NERVOUS SYSTEM: CVA GI: Other (diarrhea) Heme/Onc: Anemia NOS Hepatobiliary: No pertinent hx Psych: No pertinent hx Rheumatologic: Gout Infectious disease: No pertinent hx ENT: Other (cataract) Renal/: Chronic renal failure Endocrine: Diabetes (2), Hyperparathyroidism Dermatology: No pertinent hx Past Surgical History Past Surgical History: Cataract Removal, Other (unilateral nephrectomy; ILR placement; LAV fistula) Family History Family History: Diabetes Social History No ALCOHOL: none Drugs: None Lives: with Family Current Medications Current Medications Current Medications Pantoprazole Sodium (PROTONIX VIAL for IV PUSH) 40 mg DAILYAC IVP Last administered on 08/07/20at 08:36; Start 08/04/20 at 09:00; Stop 08/08/20 at 10:06; Status DC Allopurinol (Zyloprim) 200 mg DAILY PO Last administered on 08/09/20at 08:58; Start 08/04/20 at 12:00 Calcitriol (Rocaltrol) 0.25 mcg DAILY PO Last administered on 08/09/20at 08:58; Start 08/04/20 at 12:00 Carvedilol (Coreg) 6.25 mg BIDWMEALS PO Last administered on 08/04/20at 17:51; Start 08/04/20 at 12:00; Stop 08/05/20 at 16:54; Status DC Sacubitril/ Valsartan (Entresto 24 Mg-26 Mg) 1 tab BID PO Last administered on 08/09/20at 08:58; Start 08/04/20 at 12:00 Sevelamer Carbonate (Renvela) 3,200 mg TIDWMEALS PO Last administered on 08/05/20at 18:09; Start 08/04/20 at 12:00 Citalopram Hydrobromide (CeleXA) 20 mg DAILY PO Last administered on 08/09/20at 08:58; Start 08/04/20 at 12:00 Atorvastatin Calcium (Lipitor) 5 mg DAILY PO Last administered on 08/09/20at 08:57; Start 08/04/20 at 12:00 Sodium Chloride 1,000 ml @ 75 mls/hr [id number] IV Last administered on 08/05/20at 05:57; Start 08/04/20 at 13:00; Stop 08/08/20 at 07:25; Status DC Propofol (Diprivan) 200 mg STK-MED ONCE IV ; Start 08/04/20 at 12:34; Stop 08/04/20 at 12:35; Status DC Metoprolol Tartrate (Lopressor Vial) 2.5 mg Q6HRS IVP Last administered on 08/05/20at 00:32; Start 08/04/20 at 16:00; Stop 08/05/20 at 08:09; Status DC Sodium Chloride 1,000 ml @ 1,000 mls/hr Q1H PRN IV hypotension; Start 08/05/20 at 08:00; Stop 08/05/20 at 13:59; Status DC Sodium Chloride 1,000 ml @ 400 mls/hr Q2H30M PRN IV PATENCY; Start 08/05/20 at 08:00; Stop 08/05/20 at 19:59; Status DC Info (PHARMACY MONITORING -- do not chart) 1 each PRN DAILY PRN MC SEE COMMENTS; Start 08/05/20 at 08:00; Status Cancel Info (PHARMACY MONITORING -- do not chart) 1 each PRN DAILY PRN MC SEE COMMENTS; Start 08/05/20 at 08:00; Stop 08/08/20 at 12:19; Status DC Carvedilol (Coreg) 3.125 mg BIDWMEALS PO Last administered on 08/09/20at 08:58; Start 08/06/20 at 08:00 Apixaban (Eliquis) 5 mg BID PO Last administered on 08/09/20at 08:58; Start 08/05/20 at 21:00 Iohexol (Omnipaque 300 Mg/ml) 75 ml 1X ONCE IV ; Start 08/06/20 at 15:30; Stop 08/06/20 at 15:31; Status DC Info (CONTRAST GIVEN -- Rx MONITORING) 1 each PRN DAILY PRN MC SEE COMMENTS; Start 08/06/20 at 15:30; Stop 08/08/20 at 15:29; Status DC Iohexol (Omnipaque 300 Mg/ml) 60 ml 1X ONCE IV Last administered on 08/07/20at 10:45; Start 08/07/20 at 10:45; Stop 08/07/20 at 10:46; Status DC Iohexol (Omnipaque 240 Mg/ml) 50 ml 1X ONCE PO Last administered on 08/07/20at 10:45; Start 08/07/20 at 10:45; Stop 08/07/20 at 10:46; Status DC Sodium Chloride 1,000 ml @ 1,000 mls/hr Q1H PRN IV hypotension; Start 08/08/20 at 07:45; Stop 08/08/20 at 13:44; Status DC Sodium Chloride 1,000 ml @ 400 mls/hr Q2H30M PRN IV PATENCY; Start 08/08/20 at 07:45; Stop 08/08/20 at 19:44; Status DC Info (PHARMACY MONITORING -- do not chart) 1 each PRN DAILY PRN MC SEE COMMENTS; Start 08/08/20 at 07:45 Pantoprazole Sodium (Protonix) 40 mg DAILYAC PO Last administered on 08/09/20at 08:57; Start 08/09/20 at 07:30 Active Scripts Active Hydrocodone-Apap 5-325 (Hydrocodone Bit/Acetaminophen) 1 Tab Tablet 1 Tab PO PRN Q6HRS PRN 6 Days Reported Lasix (Furosemide) 40 Mg Tablet 40 Mg PO BID Escitalopram Oxalate 10 Mg Tablet 10 Mg PO DAILY Calcitriol 0.25 Mcg Capsule 0.25 Mcg PO DAILY Carvedilol (Carvedilol) 6.25 Mg Tablet 6.25 Mg PO BIDWMEALS Potassium Chloride (Potassium Chloride) 20 Meq Tablet.er 20 Meq PO BID Novolog (Insulin Aspart) 100 Unit/1 Ml Cartridge 20 Unit SQ TIDWMEALS Levemir (Insulin Detemir) 100 Unit/1 Ml Vial 10 Unit SQ QHS Allopurinol 100 Mg Tablet 2 Tab PO DAILY Entresto 24 mg-26 mg Tablet (Sacubitril/Valsartan) 1 Each Tablet 1 Each PO BID Renvela (Sevelamer Carbonate) 800 Mg Tablet 2 Tab PO TID Eliquis (Apixaban) 5 Mg Tablet 5 Mg PO BID Ferrous Sulfate 325 Mg Tablet 1 Tab PO TID Pravastatin Sodium 20 Mg Tablet 20 Mg PO DAILY Allergies Allergies: Coded Allergies: nut - unspecified (Verified Allergy, Intermediate, 01/05/19) lisinopril (Verified Adverse Reaction, Intermediate, Cough, 01/05/19) ROS Review of System Negative unless stated otherwise in HPI Physical Exam Physical Exam General: Awake, alert, no distress Head: Atraumatic, no conjunctival icterus, normal oral cavity mucosa Neck: Supple, no lymphadenopathy Chest: No trauma noted Cardiovascular: Regular rhythm, normal rate, no murmurs Respiratory: Bilateral air entry noted, lungs clear to auscultation bilaterally. No accessory muscle use Abdominal: Abdomen is soft, nontender, nondistended. Bowel sounds were normal. No hepatomegaly or splenomegaly Musculoskeletal: No deformity noted Extremities: No edema noted Skin: No rash or lesions Neurologic: Alert and oriented x3, no grossly evident neurologic deficits noted. Full neurological exam was not performed Psychiatric: Appropriate mood and affect Vitals VITALS Vital Signs Date Time Temp Pulse Resp B/P (MAP) Pulse Ox O2 Delivery O2 Flow Rate FiO2 08/09/20 11:00 98.1 56 16 111/63 (79) 97 Room Air 98.1 08/08/20 19:42 2 Assessment/Plan Assessment/Plan Assessment: Esophageal adenocarcinoma Normocytic anemia Thrombocytopenia Cardiomyopathy with EF 25% ESRD on hemodialysis Type 2 diabetes Coronary artery disease Hypertension Deconditioning Recommendations: -I discussed the pathology report and results of CT scans with the patient and spouse. Subcarinal lymph node is concerning for distant metastasis. We discussed the role of staging in defining the management strategy in patients with esophageal cancer. Recommended PET/CT as outpatient. He was agreeable to this. -Plan on arranging outpatient follow-up in medical oncology clinic and arranging PET/CT post discharge from nursing home facility -Given his advanced age, significant comorbidities and dementia, he does have a significant risk of complications from chemotherapy and is unlikely to carry acceptable perioperative risk. Palliative radiotherapy may be reasonable in this setting but this will be further discussed with the patient as outpatient -Consider stenting of esophageal primary given dysphagia. Continue to work with cinder snapper for identification of appropriate diet -Check iron studies, B12, uric acid, to lesser count, SPEP and ferritin for further evaluation of anemia and thrombocytopenia. -Rest per primary service Rustam Mcclain MD Medical Oncology/Hematology Ph: [phone] ALEXANDRIA MCCLAIN MD Aug 09, 2020 12:34
[2020-08-09 13:43] LABS: URIC ACID 2.9 mg/dL (3.5-7.2)
[2020-08-09 14:52] VITALS: BP 132/68
[2020-08-09 19:15] VITALS: BP 126/59
[2020-08-09 23:05] VITALS: BP 113/57
[2020-08-10 03:30] VITALS: BP 105/58
[2020-08-10 06:35] LABS: CALCIUM 9.1 mg/dL (8.5-10.1); CREATININE 5.2 mg/dL (0.7-1.3); GFR 10.9; POTASSIUM 4.6 mmol/L (3.5-5.1)
[2020-08-10 07:00] VITALS: BP 120/69
[2020-08-10] MEDS: SEVELAMER CARBONATE 800 MG TABLET. PO SCH (08:00)
[2020-08-10] MEDS: PANTOPRAZOLE 40 MG TABLET.DR. PO SCH (08:53)
[2020-08-10] MEDS: SACUBITRIL/VALSARTAN 24/26MG TABLET. PO SCH (08:57)
[2020-08-10 08:58] VITALS: BP 120/69
[2020-08-10] MEDS: APIXABAN 5 MG TABLET. PO SCH (08:58)
[2020-08-10] MEDS: CARVEDILOL 6.25 MG TABLET. PO SCH (08:58)
[2020-08-10] MEDS ORDERED: ALBUMIN HUMAN 25% 200 ML IV PRN (09:00)
[2020-08-10] MEDS ORDERED: IV NORMAL SALINE 1000ML BAG 1,000 ML IV PRN ×2 (09:00)
[2020-08-10] MEDS ORDERED: DIALYSIS PATIENT. MC PRN ×2 (09:00)
--- NOTE | 2020-08-10 09:20 | PDOC ---
Date of Service: DATE: 08/10/20 TIME: 09:18 Subjective: Subjective: Swallowing okay - ate breakfast without issue. Objective: Objective: D/w nurse - SNU discussed. Vital Signs: Vital Signs Date Time Temp Pulse Resp B/P (MAP) Pulse Ox O2 Delivery O2 Flow Rate FiO2 08/10/20 08:58 63 120/69 08/10/20 07:00 98.2 16 95 Room Air 98.2 Labs: Laboratory Tests Test 08/09/20 13:02 08/10/20 04:55 Red Blood Count 3.08 x10^6/uL Absolute Reticulocyte Count 0.030 x10^6/uL Percent Reticulocyte Count 1.0 % Immature Reticulocyte Fraction 0.41 Haptoglobin 194 mg/dL Uric Acid 2.9 mg/dL Iron Level 26 ug/dL Total Iron Binding Capacity 218 ug/dL Iron Saturation 12 % Erythropoietin Pending Ferritin 307 ng/mL Lactate Dehydrogenase 142 U/L Total Protein (PEP) Pending Albumin (PEP) Pending Globulin Pending Albumin/Globulin Ratio Pending [id number] Pending [id number] Pending Beta Globulins Pending Gamma Globulins Pending Protein Electrophoresis M-Cleve Pending Protein Electrophoresis Comment Pending Vitamin B12 Level 1658 pg/mL Immunoglobulin Three Way/Lambda Ratio Pending Free Three Way Light Chains Pending Free Lambda Light Chains Pending Sodium Level 142 mmol/L Potassium Level 4.6 mmol/L Chloride Level 104 mmol/L Carbon Dioxide Level 30 mmol/L Anion Gap 8 Blood Urea Nitrogen 22 mg/dL Creatinine 5.2 mg/dL Estimated GFR (Cockcroft-Gault) 10.9 Glucose Level 107 mg/dL Calcium Level 9.1 mg/dL PE: GEN: NAD - up in chair - full liquids 100% consumed LUNGS: clear HEART: irregular ABD: S/ND/NT NEURO/PSYCH: probably confused/forgetful A/P: Esophageal cancer Dementia, ESRD, NICM, A Fib -- Continue per oncology. Justicifation of Admission Dx: Justifications for Admission: Justification of Admission Dx: Yes MARY ELLEN HOOD Aug 10, 2020 09:20
--- NOTE | 2020-08-10 09:32 | PDOC ---
[employer] PROGRESS NOTE Date of Service DOS: DATE: 08/10/20 TIME: 09:30 Chief Complaint Chief Complaint acute esophageal obstruction - esophageal adenocarcinoma, //Dysphagia- weakness and Falls Shortness of breath/ cardiomyopathy moderate pulmonary hypertension. PA pressure was estimated at 47 mmHg.ejection fraction is severely impaired. EF 25% recent echo global hypokinesis of the left ventricle. Htn - controlled dm2 controlled ESRD on HD MWF paroxysmal afib on eliquis, carvedilol h/o left renal Ca s/p nephrectomy rt toe chronic wound Esophageal tumor EGD 08/04 partially obstructing esophageal tumor in lower third of esophagus medication gel in esophagus - removed gastritis 4 mm nodule identified in the left lingula. Follow-up effusions 2016 articulates with follow-up CT chest in 6 months. cognitive decline pmh A Fib, CHF, NICM, HTN, HLD, DM, CAD, pneumonia, CVA w/ left-sided weakness, OA, anxiety, ESRD on HD, RCC s/p left nephrectomy, Justifications for Admission General Conditions Other justification for admit: SWALLOWING PROBLEMS History of Present Illness History of Present Illness 08/10/2020 Patient seen and evaluated. No acute events overnight. He requested that I contact his and answer any questions or concerns that she may have. Discussed pathology findings and oncology recommendations. Patient is still agreeable to discharge to SNF today. Greater than 30 minutes spent managing the discharge of this patient. 08/09 , can transfer to skilled new adenocarcinoma of esophagus discussed, he would like treatment if available, he needs better nutrition and functional status at this time,. he his very weak and needs skilled consult Dr. Paez, plan PT and OT skilled, referral placed, 08/07/2020 Tolerating clears. Advance diet as tolerated pending CT abdomen pelvis IV contrast for malignancy work-up. No concerns from nursing at this time. Patient's chart, labs, images were reviewed and discussed with RN Identification/Chief Complaint Chief Complaint UNABLE TO SWALLW SOLIDS X 2 DAYS History of Present Illness History of Present Illness 74 yo male admitted for complains of vomiting.poor recall. pt was at [facility] and transferred to [facility] for further GI workup. Reports that in the last 3 dayS he has been having episode that when he eats just even a few bites he complained that it gets stuck midway and eventually vomits He has been able to eat nor drink adequately due to the vomiting. He does occasionally has epigastric discomfort. No fever or chills THIS STARTED after eating meat 2 days ago Past Medical History Past Medical History Past Medical History Cardiovascular: AFIB, CAD, CHF, HTN, [place], Hyperlipidemia, cardiomyopathy Pulmonary: Pneumonia CENTRAL NERVOUS SYSTEM: CVA GI: No pertinent hx Heme/Onc: Anemia NOS Psych: No pertinent hx Musculoskeletal: Osteoarthritis Rheumatologic: Gout Infectious disease: No pertinent hx Renal/: Chronic renal failure, Other Endocrine: Diabetes Past Surgical History Past Surgical History: Cataract Removal, Other Family History Family History: Diabetes, Heart Disease, Hypertension Social History ALCOHOL: none Drugs: None Cardiovascular: AFIB, CAD, CHF, HTN, OH, Hyperlipidemia Pulmonary: Pneumonia CENTRAL NERVOUS SYSTEM: CVA GI: No pertinent hx Heme/Onc: Anemia NOS Psych: No pertinent hx Rheumatologic: Gout Infectious disease: No pertinent hx Renal/: Chronic renal failure, Other Endocrine: Diabetes, Hyperparathyroidism Past Surgical History Past Surgical History: Cataract Removal, Other Family History Family History: Diabetes, Heart Disease, Hypertension Social History Smoke: No ALCOHOL: none Drugs: None Vitals/I&O Vitals/I&O: Vital Signs Date Time Temp Pulse Resp B/P (MAP) Pulse Ox O2 Delivery O2 Flow Rate FiO2 08/10/20 08:58 63 120/69 08/10/20 07:00 98.2 16 95 Room Air 98.2 I & O 08/09/20 08/09/20 08/10/20 15:00 23:00 07:00 Intake Total 360 ml 480 ml 300 ml Output Total 1 ml Balance 360 ml 479 ml 300 ml Physical Exam General: Alert, Oriented X3, Cooperative, No acute distress Heart: Regular rate, Normal S1, Normal S2 Lungs: Clear, Other Abdomen: Normal bowel sounds, Soft, No tenderness Extremities: No clubbing, No cyanosis, No edema Skin: No breakdown Labs Labs: Laboratory Tests Test 08/09/20 13:02 08/10/20 04:55 Red Blood Count 3.08 x10^6/uL (4.30-5.70) Absolute Reticulocyte Count 0.030 x10^6/uL (0.020-0.120) Percent Reticulocyte Count 1.0 % (0.5-2.3) Immature Reticulocyte Fraction 0.41 (0.20-0.60) Haptoglobin 194 mg/dL (34-355) Uric Acid 2.9 mg/dL (3.5-7.2) Iron Level 26 ug/dL (65-175) Total Iron Binding Capacity 218 ug/dL (250-450) Iron Saturation 12 % (15-34) Ferritin 307 ng/mL (26-388) Lactate Dehydrogenase 142 U/L (85-227) Vitamin B12 Level 1658 pg/mL (247-911) Sodium Level 142 mmol/L (136-145) Potassium Level 4.6 mmol/L (3.5-5.1) Chloride Level 104 mmol/L (98-107) Carbon Dioxide Level 30 mmol/L (21-32) Anion Gap 8 (6-14) Blood Urea Nitrogen 22 mg/dL (8-26) Creatinine 5.2 mg/dL (0.7-1.3) Estimated GFR (Cockcroft-Gault) 10.9 Glucose Level 107 mg/dL (70-99) Calcium Level 9.1 mg/dL (8.5-10.1) Comment Review of Relevant I have reviewed the following items jennifer (where applicable) has been applied. Justifications for Admission General Conditions Other justification for admit: SWALLOWING PROBLEMS Other Justification MARISOL MCDOWELL MD Aug 10, 2020 09:32
--- NOTE | 2020-08-10 09:37 | PDOC3 ---
Discharge Summary Visit Information Date of Admission: Aug 03, 2020 Date of Discharge: Aug 10, 2020 Brief Hospital Course Allergies Allergies Coded Allergies Type Severity Reaction Last Updated Verified nut - unspecified Allergy Intermediate 01/05/19 Yes lisinopril Adverse Reaction Intermediate Cough 01/05/19 Yes Vital Signs Vital Signs Date Time Temp Pulse Resp B/P (MAP) Pulse Ox O2 Delivery O2 Flow Rate FiO2 08/10/20 08:58 63 120/69 08/10/20 07:00 98.2 16 95 Room Air 98.2 Lab Results Laboratory Tests Test 08/09/20 13:02 08/10/20 04:55 Red Blood Count 3.08 x10^6/uL (4.30-5.70) Absolute Reticulocyte Count 0.030 x10^6/uL (0.020-0.120) Percent Reticulocyte Count 1.0 % (0.5-2.3) Immature Reticulocyte Fraction 0.41 (0.20-0.60) Haptoglobin 194 mg/dL (34-355) Uric Acid 2.9 mg/dL (3.5-7.2) Iron Level 26 ug/dL (65-175) Total Iron Binding Capacity 218 ug/dL (250-450) Iron Saturation 12 % (15-34) Ferritin 307 ng/mL (26-388) Lactate Dehydrogenase 142 U/L (85-227) Vitamin B12 Level 1658 pg/mL (247-911) Sodium Level 142 mmol/L (136-145) Potassium Level 4.6 mmol/L (3.5-5.1) Chloride Level 104 mmol/L (98-107) Carbon Dioxide Level 30 mmol/L (21-32) Anion Gap 8 (6-14) Blood Urea Nitrogen 22 mg/dL (8-26) Creatinine 5.2 mg/dL (0.7-1.3) Estimated GFR (Cockcroft-Gault) 10.9 Glucose Level 107 mg/dL (70-99) Calcium Level 9.1 mg/dL (8.5-10.1) Laboratory Tests Test 08/09/20 13:02 08/10/20 04:55 Red Blood Count 3.08 x10^6/uL (4.30-5.70) Absolute Reticulocyte Count 0.030 x10^6/uL (0.020-0.120) Percent Reticulocyte Count 1.0 % (0.5-2.3) Immature Reticulocyte Fraction 0.41 (0.20-0.60) Haptoglobin 194 mg/dL (34-355) Uric Acid 2.9 mg/dL (3.5-7.2) Iron Level 26 ug/dL (65-175) Total Iron Binding Capacity 218 ug/dL (250-450) Iron Saturation 12 % (15-34) Ferritin 307 ng/mL (26-388) Lactate Dehydrogenase 142 U/L (85-227) Vitamin B12 Level 1658 pg/mL (247-911) Sodium Level 142 mmol/L (136-145) Potassium Level 4.6 mmol/L (3.5-5.1) Chloride Level 104 mmol/L (98-107) Carbon Dioxide Level 30 mmol/L (21-32) Anion Gap 8 (6-14) Blood Urea Nitrogen 22 mg/dL (8-26) Creatinine 5.2 mg/dL (0.7-1.3) Estimated GFR (Cockcroft-Gault) 10.9 Glucose Level 107 mg/dL (70-99) Calcium Level 9.1 mg/dL (8.5-10.1) Brief Hospital Course Mr. Hernandez is a 74 old male who presented with dysphagia, anemia, and ESRD on HD. Consultation was placed to nephrology to continue his hemodialysis and patient. Consultation was placed to GI. He had EGD with gastroesophageal junction mass biopsy revealing a malignant epithelial neoplasm. Consultation was placed to hematology/oncology. Results of biopsy were discussed with p atient and , and they are in agreement to follow-up as outpatient for PET scan. He worked with physical therapy and was recommended correction. He was stable for discharge with hematology/oncology follow-up. Discharge Information Condition at Discharge: Stable Follow Up: Weeks Disposition/Orders: D/C to Another Facility Scheduled Allopurinol (Allopurinol) 100 Mg Tablet, 2 TAB PO DAILY for gout, #30 Ref 5 (Reported) Entered as Reported by: ABHI NGUYEN on 01/01/191712 Last Action: Reviewed on 08/04/20 113 by PHU GABRIEL Apixaban (Eliquis) 5 Mg Tablet, 5 MG PO BID, (Reported) Entered as Reported by: YOLANDA JOY on 06/03/171718 Last Action: Reviewed on 08/04/201135 by PHU GABRIEL Calcitriol (Calcitriol) 0.25 Mcg Capsule, 0.25 MCG PO DAILY for supplement, (Reported) Entered as Reported by: PEBBLES SANTANA on 03/16/191123 Last Action: Continued on 08/04/201112 by VERENA OROZCO MD Carvedilol (Carvedilol ) 6.25 Mg Tablet, 6.25 MG PO BIDWMEALS for CARDIAC, (Reported) Entered as Reported by: STANTON HARRIS on 03/14/191725 Last Action: Reviewed on 08/04/201135 by PHU GABRIEL Escitalopram Oxalate (Escitalopram Oxalate) 10 Mg Tablet, 10 MG PO DAILY for ANTI-DEPRESSANT, #30 Ref 0 (Reported) Entered as Reported by: PEBBLES SANTANA on 03/16/191123 Last Action: Converted on 08/04/201112 by VERENA OROZCO MD Ferrous Sulfate (Ferrous Sulfate) 325 Mg Tablet, 1 TAB PO TID, #60 Ref 3 (Reported) Entered as Reported by: YOLANDA JOY on 06/03/171707 Last Action: HELD on 08/04/201112 by VERENA OROZCO MD Furosemide (Lasix) 40 Mg Tablet, 40 MG PO BID for water pill, (Reported) Entered as Reported by: PHU GABRIEL on 08/04/201135 Last Action: New Order on 08/04/201135 by PHU GABRIEL Insulin Aspart (Novolog) 100 Unit/1 Ml Cartridge, 20 UNIT SQ TIDWMEALS for DM, (Reported) Entered as Reported by: ABHI NGUYEN on 01/01/191712 Last Action: HELD on 08/04/201112 by VERENA OROZCO MD Insulin Detemir (Levemir) 100 Unit/1 Ml Vial, 10 UNIT SQ QHS for DM, (Reported) Entered as Reported by: ABHI NGUYEN on 01/01/191712 Last Action: HELD on 08/04/201112 by VERENA OROZCO MD Potassium Chloride (Potassium Chloride ) 20 Meq Tablet.er, 20 MEQ PO BID for ., (Reported) Entered as Reported by: STANTON HARRIS on 03/14/191724 Last Action: HELD on 08/04/201112 by VERENA OROZCO MD Pravastatin Sodium (Pravastatin Sodium) 20 Mg Tablet, 20 MG PO DAILY, (Reported) Entered as Reported by: Rigo Moran on 06/26/132254 Last Action: Reviewed on 08/04/201135 by PHU GABRIEL Sacubitril/Valsartan (Entresto 24 mg-26 mg Tablet) 1 Each Tablet, 1 EACH PO BID for CHF, (Reported) Entered as Reported by: ABIH NGUYEN on 01/01/191712 Last Action: Reviewed on 08/04/201135 by PHU GABRIEL Sevelamer Carbonate (Renvela) 800 Mg Tablet, 2 TAB PO TID for ESRD, #810 Ref 3 (Reported) Entered as Reported by: YOLANDA JOY on 06/03/171718 Last Action: Edited on 08/04/201135 by PHU GABRIEL Scheduled PRN Hydrocodone Bit/Acetaminophen (Hydrocodone-Apap 5-325 ) 1 Tab Tablet, 1 TAB PO PRN Q6HRS PRN for PAIN for 6 Days, #20 Ref 0 Prescribed by: NADJA PATRICIO MD on 03/28/19 0952 Last Action: HELD on 08/04/201112 by VERENA OROZCO MD Justicifation of Admission Dx: Justifications for Admission: Justification of Admission Dx: Yes MARISOL MCDOWELL MD Aug 10, 2020 09:37
--- NOTE | 2020-08-10 09:42 | SNU/HH DC ---
DISCHARGE ORDERS DISCHARGE INFORMATION: DISCHARGE DATE: Aug 10, 2020 CONDITION ON DISCHARGE: Stable CODE STATUS: Code Status: Full [facility]: SNF STAY <30 DAYS: Yes POST DISCHARGE ORDERS: ACTIVITY ORDERS: Activity as tolerated WEIGHT BEARING STATUS: As tolerated BATHING ORDERS: Shower-keep dressing dry DIET AFTER DISCHARGE: Renal WOUND/INCISION CARE: Other, see below CHECKS AFTER DISCHARGE: CHECKS AFTER DISCHARGE: Check blood press - daily, Check blood sugar, ac/hs, Weigh Yourself Daily TREATMENT/EQUIPMENT ORDERS: ADAPTIVE EQUIPMENT NEEDED: None Physical Therapy For: Evalulation/Treatment Occupational Therapy For: Evaluation/Treatment Speech Language Pathology For: Evaluation/Treatment DISCHARGE MEDICATIONS: Home Meds Active Scripts Hydrocodone Bit/Acetaminophen (HYDROCODONE-APAP 5-325 ) 1 Tab Tablet, 1 TAB PO PRN Q6HRS PRN for PAIN for 6 Days, #20 TAB 0 Refills Prov:NADJA PATRICIO MD 03/28/19 Reported Medications Furosemide (LASIX) 40 Mg Tablet, 40 MG PO BID for water pill, TAB 08/04/20 Escitalopram Oxalate (ESCITALOPRAM OXALATE) 10 Mg Tablet, 10 MG PO DAILY for ANTI-DEPRESSANT, #30 TAB 0 Refills 03/16/19 Calcitriol (CALCITRIOL) 0.25 Mcg Capsule, 0.25 MCG PO DAILY for supplement, CAP 03/16/19 Carvedilol (CARVEDILOL ) 6.25 Mg Tablet, 6.25 MG PO BIDWMEALS for CARDIAC, TAB 03/14/19 Potassium Chloride (POTASSIUM CHLORIDE ) 20 Meq Tablet.er, 20 MEQ PO BID for ., TAB.SR 03/14/19 Insulin Aspart (NOVOLOG) 100 Unit/1 Ml Cartridge, 20 UNIT SQ TIDWMEALS for DM, EACH 01/01/19 Insulin Detemir (LEVEMIR) 100 Unit/1 Ml Vial, 10 UNIT SQ QHS for DM, VIAL 01/01/19 Allopurinol (ALLOPURINOL) 100 Mg Tablet, 2 TAB PO DAILY for gout, #30 TAB 5 Refills 01/01/19 Sacubitril/Valsartan (Entresto 24 mg-26 mg Tablet) 1 Each Tablet, 1 EACH PO BID for CHF, TAB 01/01/19 Sevelamer Carbonate (RENVELA) 800 Mg Tablet, 2 TAB PO TID for ESRD, #810 TAB 3 Refills 06/03/17 Apixaban (ELIQUIS) 5 Mg Tablet, 5 MG PO BID, TAB 06/03/17 Ferrous Sulfate (FERROUS SULFATE) 325 Mg Tablet, 1 TAB PO TID, #60 TAB 3 Refills 06/03/17 Pravastatin Sodium (PRAVASTATIN SODIUM) 20 Mg Tablet, 20 MG PO DAILY 06/26/13 MARISOL MCDOWELL MD Aug 10, 2020 09:42
--- NOTE | 2020-08-10 09:42 | PDOC ---
DATE OF SERVICE DATE: 08/10/20 TIME: 09:40 SUBJECTIVE ROS Seen on dialysis, no complaints OBJECTIVE Vital Signs Vital Signs Date Time Temp Pulse Resp B/P (MAP) Pulse Ox O2 Delivery O2 Flow Rate FiO2 08/10/20 08:58 63 120/69 08/10/20 07:00 98.2 16 95 Room Air 98.2 I & 0 Intake and Output 08/10/20 07:00 Intake Total 1140 ml Output Total 1 ml Balance 1139 ml Intake Oral 1140 ml Stool Total 1 ml # Bowel Movements 1 PHYSICAL EXAM Physical Exam GEN: Awake, Oriented x 3, In no distress EYES: Vision Unchanged, Conjunctiva Normal EN: No EN Drainage, Mucous Membranes m oist NECK: no JVD, no JVP, Supple, no Thyromegaly CVS: S1S2, ? Murmur, No Gallop, No Rub,no Edema RESP: no Rales, no Rhonchi,no Acc. Muscle Use GI: BS + ve, NO Bruit, Non Tender, Non Distended : no CVA tenderness, no Suprapubic Tenderness DIAGNOSIS/ASSESSMENT Assessment & Plan ESRD: MWF schedule, seen on dialysis, tolerating well. Continue as ordered, Waldo Solis Acute esophageal obstruction //Dysphagia s/p EGD 08/04 - Dx esophageal adenocarcinoma, Hx of Renal Cancer- CT scan- ill-defined exophytic hypodensities of the right kidney. These do not have appearance of cysts. Cannot exclude solid masses. Recommend renal ultrasound. Moderate bilateral pleural effusions. Groundglass opacity superior segment of left lower lobe may be infectious/inflammatory. Anemia- [facility] per Oncology . Pt Dx with Esophageal Adenocarcinoma A Fib HTN COMMENT/RELEVANT DATA Meds Current Medications Medications (Trade) Dose Ordered Sig/Esperanza Start Time Stop Time Status Last Admin Dose Admin Albumin Human 200 ml @ 200 mls/hr 1X PRN PRN 08/10/20 09:00 08/10/20 14:59 Allopurinol (Zyloprim) 200 mg DAILY 08/04/20 12:00 08/09/20 08:58 200 MG Apixaban (Eliquis) 5 mg BID 08/05/20 21:00 08/10/20 08:58 5 MG Atorvastatin Calcium (Lipitor) 5 mg DAILY 08/04/20 12:00 08/09/20 08:57 5 MG Calcitriol (Rocaltrol) 0.25 mcg DAILY 08/04/20 12:00 08/09/20 08:58 0.25 MCG Carvedilol (Coreg) 3.125 mg BIDWMEALS 08/06/20 08:00 08/10/20 08:58 3.125 MG Citalopram Hydrobromide (CeleXA) 20 mg DAILY 08/04/20 12:00 08/09/20 08:58 20 MG Info (CONTRAST GIVEN -- Rx MONITORING) 1 each PRN DAILY PRN 08/06/20 15:30 08/08/20 15:29 DC Info (PHARMACY MONITORING -- do not chart) 1 each PRN DAILY PRN 08/10/20 09:00 Iohexol (Omnipaque 240 Mg/ml) 50 ml 1X ONCE 08/07/20 10:45 08/07/20 10:46 DC 08/07/20 10:45 50 ML Iohexol (Omnipaque 300 Mg/ml) 60 ml 1X ONCE 08/07/20 10:45 08/07/20 10:46 DC 08/07/20 10:45 60 ML Metoprolol Tartrate (Lopressor Vial) 2.5 mg Q6HRS 08/04/20 16:00 08/05/20 08:09 DC 08/05/20 00:32 2.5 MG Pantoprazole Sodium (PROTONIX VIAL for IV PUSH) 40 mg DAILYAC 08/04/20 09:00 08/08/20 10:06 DC 08/07/20 08:36 40 MG Pantoprazole Sodium (Protonix) 40 mg DAILYAC 08/09/20 07:30 08/10/20 08:53 40 MG Propofol (Diprivan) 200 mg STK-MED ONCE 08/04/20 12:34 08/04/20 12:35 DC Sacubitril/ Valsartan (Entresto 24 Mg-26 Mg) 1 tab BID 08/04/20 12:00 08/10/20 08:57 1 TAB Sevelamer Carbonate (Renvela) 3,200 mg TIDWMEALS 08/04/20 12:00 08/05/20 18:09 3,200 MG Sodium Chloride 1,000 ml @ 400 mls/hr Q2H30M PRN 08/10/20 09:00 08/10/20 20:59 Lab Laboratory Tests Test 08/09/20 13:02 08/10/20 04:55 Red Blood Count 3.08 x10^6/uL (4.30-5.70) Absolute Reticulocyte Count 0.030 x10^6/uL (0.020-0.120) Percent Reticulocyte Count 1.0 % (0.5-2.3) Immature Reticulocyte Fraction 0.41 (0.20-0.60) Haptoglobin 194 mg/dL (34-355) Uric Acid 2.9 mg/dL (3.5-7.2) Iron Level 26 ug/dL (65-175) Total Iron Binding Capacity 218 ug/dL (250-450) Iron Saturation 12 % (15-34) Ferritin 307 ng/mL (26-388) Lactate Dehydrogenase 142 U/L (85-227) Vitamin B12 Level 1658 pg/mL (247-911) Sodium Level 142 mmol/L (136-145) Potassium Level 4.6 mmol/L (3.5-5.1) Chloride Level 104 mmol/L (98-107) Carbon Dioxide Level 30 mmol/L (21-32) Anion Gap 8 (6-14) Blood Urea Nitrogen 22 mg/dL (8-26) Creatinine 5.2 mg/dL (0.7-1.3) Estimated GFR (Cockcroft-Gault) 10.9 Glucose Level 107 mg/dL (70-99) Calcium Level 9.1 mg/dL (8.5-10.1) Results All relevant outside records, renal labs, imaging studies, telemetry/EKG's were reviewed. Justicifation of Admission Dx: Justifications for Admission: Justification of Admission Dx: Yes TREVIN CERNA MD Aug 10, 2020 09:42
--- NOTE | 2020-08-10 12:08 | NUR ---
SS following up with discharge planning. SS reviewed pt chart and discussed with pt RN. Pt is currently on room air. COVID19 negative. PT/OT recommended [facility] unit. Pt accepted at [facility], ; fax [phone]. Discharge orders received and phoned and faxed to [facility]. Pt will discharge today and go to [facility] at 1400. [facility] to provide transportation. Pt, pt's RN, and pt's spouse notified.
[2020-08-10 14:18] LABS: ALBUM 3.7 g/dL (2.9-4.4); ALPHA 1 0.3 g/dL (0.0-0.4); ALPHA 2 0.8 g/dL (0.4-1.0); BETA 0.9 g/dL (0.7-1.3); GAMMA 1.2 g/dL (0.4-1.8); PROTEIN TOTAL 6.9 g/dL (6.0-8.5); SPEP AG RATIO 1.2 (0.7-1.7)
--- NOTE | 2020-08-10 15:49 | NUR ---
Patient transferred from [facility] to [facility] via transportation at approximately 1530. Patient accompanied by patient's spouse. All patient belongings taken with patient's spouse.
--- NOTE | 2020-08-10 16:09 | PDOC2 ---
CONSULT Date of Consult Date of Consult DATE: 08/10/20 TIME: 16:04 Reason for Consult Reason for Consult: Esophageal cancer Referring Physician Referring Physician: Dr. Kaufman Identification/Chief Complaint Chief Complaint difficulty swallowing Source Source: Chart review, Patient History of Present Illness Reason for Visit: 74 yo M with c/o difficulty swallowing. Pt seen prior to d/c while on dialysis. Pt poor historian and history primarily obtained from chart. Pt denies abd pain, but notes difficulty eating. Past Medical History Cardiovascular: AFIB, CAD, CHF, HTN, Hyperlipidemia, Valve insufficiency, Pulmonary hypertension, Other (NICM; PAD) Pulmonary: Other (SERENITY- noncompliant with CPAP) CENTRAL NERVOUS SYSTEM: CVA GI: Other (diarrhea) Heme/Onc: Anemia NOS Hepatobiliary: No pertinent hx Psych: No pertinent hx Rheumatologic: Gout Infectious disease: No pertinent hx ENT: Other (cataract) Renal/: Chronic renal failure Endocrine: Diabetes (2), Hyperparathyroidism Dermatology: No pertinent hx Past Surgical History Past Surgical History: Cataract Removal, Other (unilateral nephrectomy; ILR placement; LAV fistula) Family History Family History: Diabetes Social History No ALCOHOL: none Drugs: None Lives: with Family Current Medications Current Medications Current Medications Pantoprazole Sodium (PROTONIX VIAL for IV PUSH) 40 mg DAILYAC IVP Last administered on 08/07/20at 08:36; Start 08/04/20 at 09:00; Stop 08/08/20 at 10:06; Status DC Allopurinol (Zyloprim) 200 mg DAILY PO Last administered on 08/09/20at 08:58; Start 08/04/20 at 12:00; Stop 08/10/20 at 15:52; Status DC Calcitriol (Rocaltrol) 0.25 mcg DAILY PO Last administered on 08/09/20at 08:58; Start 08/04/20 at 12:00; Stop 08/10/20 at 15:52; Status DC Carvedilol (Coreg) 6.25 mg BIDWMEALS PO Last administered on 08/04/20at 17:51; Start 08/04/20 at 12:00; Stop 08/05/20 at 16:54; Status DC Sacubitril/ Valsartan (Entresto 24 Mg-26 Mg) 1 tab BID PO Last administered on 08/10/20at 08:57; Start 08/04/20 at 12:00; Stop 08/10/20 at 15:52; Status DC Sevelamer Carbonate (Renvela) 3,200 mg TIDWMEALS PO Last administered on 08/05/20at 18:09; Start 08/04/20 at 12:00; Stop 08/10/20 at 15:52; Status DC Citalopram Hydrobromide (CeleXA) 20 mg DAILY PO Last administered on 08/09/20at 08:58; Start 08/04/20 at 12:00; Stop 08/10/20 at 15:52; Status DC Atorvastatin Calcium (Lipitor) 5 mg DAILY PO Last administered on 08/09/20at 08:57; Start 08/04/20 at 12:00; Stop 08/10/20 at 15:52; Status DC Sodium Chloride 1,000 ml @ 75 mls/hr [id number] IV Last administered on 08/05/20at 05:57; Start 08/04/20 at 13:00; Stop 08/08/20 at 07:25; Status DC Propofol (Diprivan) 200 mg STK-MED ONCE IV ; Start 08/04/20 at 12:34; Stop 08/04/20 at 12:35; Status DC Metoprolol Tartrate (Lopressor Vial) 2.5 mg Q6HRS IVP Last administered on 08/05/20at 00:32; Start 08/04/20 at 16:00; Stop 08/05/20 at 08:09; Status DC Sodium Chloride 1,000 ml @ 1,000 mls/hr Q1H PRN IV hypotension; Start 08/05/20 at 08:00; Stop 08/05/20 at 13:59; Status DC Sodium Chloride 1,000 ml @ 400 mls/hr Q2H30M PRN IV PATENCY; Start 08/05/20 at 08:00; Stop 08/05/20 at 19:59; Status DC Info (PHARMACY MONITORING -- do not chart) 1 each PRN DAILY PRN MC SEE COMMENTS; Start 08/05/20 at 08:00; Status Cancel Info (PHARMACY MONITORING -- do not chart) 1 each PRN DAILY PRN MC SEE COMMENTS; Start 08/05/20 at 08:00; Stop 08/08/20 at 12:19; Status DC Carvedilol (Coreg) 3.125 mg BIDWMEALS PO Last administered on 08/10/20at 08:58; Start 08/06/20 at 08:00; Stop 08/10/20 at 15:52; Status DC Apixaban (Eliquis) 5 mg BID PO Last administered on 08/10/20at 08:58; Start 08/05/20 at 21:00; Stop 08/10/20 at 15:52; Status DC Iohexol (Omnipaque 300 Mg/ml) 75 ml 1X ONCE IV ; Start 08/06/20 at 15:30; Stop 08/06/20 at 15:31; Status DC Info (CONTRAST GIVEN -- Rx MONITORING) 1 each PRN DAILY PRN MC SEE COMMENTS; Start 08/06/20 at 15:30; Stop 08/08/20 at 15:29; Status DC Iohexol (Omnipaque 300 Mg/ml) 60 ml 1X ONCE IV Last administered on 08/07/20at 10:45; Start 08/07/20 at 10:45; Stop 08/07/20 at 10:46; Status DC Iohexol (Omnipaque 240 Mg/ml) 50 ml 1X ONCE PO Last administered on 08/07/20at 10:45; Start 08/07/20 at 10:45; Stop 08/07/20 at 10:46; Status DC Sodium Chloride 1,000 ml @ 1,000 mls/hr Q1H PRN IV hypotension; Start 08/08/20 at 07:45; Stop 08/08/20 at 13:44; Status DC Sodium Chloride 1,000 ml @ 400 mls/hr Q2H30M PRN IV PATENCY; Start 08/08/20 at 07:45; Stop 08/08/20 at 19:44; Status DC Info (PHARMACY MONITORING -- do not chart) 1 each PRN DAILY PRN MC SEE COMMENTS; Start 08/08/20 at 07:45; Stop 08/10/20 at 09:31; Status DC Pantoprazole Sodium (Protonix) 40 mg DAILYAC PO Last administered on 08/10/20at 08:53; Start 08/09/20 at 07:30; Stop 08/10/20 at 15:52; Status DC Sodium Chloride 1,000 ml @ 1,000 mls/hr Q1H PRN IV hypotension; Start 08/10/20 at 09:00; Stop 08/10/20 at 14:59; Status DC Albumin Human 200 ml @ 200 mls/hr 1X PRN PRN IV Hypotension; Start 08/10/20 at 09:00; Stop 08/10/20 at 14:59; Status DC Sodium Chloride 1,000 ml @ 400 mls/hr Q2H30M PRN IV PATENCY; Start 08/10/20 at 09:00; Stop 08/10/20 at 15:52; Status DC Info (PHARMACY MONITORING -- do not chart) 1 each PRN DAILY PRN MC SEE COMMENTS; Start 08/10/20 at 09:00; Status UNV Info (PHARMACY MONITORING -- do not chart) 1 each PRN DAILY PRN MC SEE COMMENTS; Start 08/10/20 at 09:00; Stop 08/10/20 at 15:52; Status DC Active Scripts Active Hydrocodone-Apap 5-325 (Hydrocodone Bit/Acetaminophen) 1 Tab Tablet 1 Tab PO PRN Q6HRS PRN 6 Days Reported Lasix (Furosemide) 40 Mg Tablet 40 Mg PO BID Escitalopram Oxalate 10 Mg Tablet 10 Mg PO DAILY Calcitriol 0.25 Mcg Capsule 0.25 Mcg PO DAILY Carvedilol (Carvedilol) 6.25 Mg Tablet 6.25 Mg PO BIDWMEALS Potassium Chloride (Potassium Chloride) 20 Meq Tablet.er 20 Meq PO BID Novolog (Insulin Aspart) 100 Unit/1 Ml Cartridge 20 Unit SQ TIDWMEALS Levemir (Insulin Detemir) 100 Unit/1 Ml Vial 10 Unit SQ QHS Allopurinol 100 Mg Tablet 2 Tab PO DAILY Entresto 24 mg-26 mg Tablet (Sacubitril/Valsartan) 1 Each Tablet 1 Each PO BID Renvela (Sevelamer Carbonate) 800 Mg Tablet 2 Tab PO TID Eliquis (Apixaban) 5 Mg Tablet 5 Mg PO BID Ferrous Sulfate 325 Mg Tablet 1 Tab PO TID Pravastatin Sodium 20 Mg Tablet 20 Mg PO DAILY Allergies Allergies: Coded Allergies: nut - unspecified (Verified Allergy, Intermediate, 01/05/19) lisinopril (Verified Adverse Reaction, Intermediate, Cough, 01/05/19) ROS Gastrointestinal: Yes Other (difficulty swallowing) Physical Exam General: Alert, Cooperative, No acute distress HEENT: Atraumatic Lungs: Normal air movement Abdomen: Soft, No tenderness Extremities: No clubbing, No cyanosis Skin: No rashes, No breakdown Neuro: Normal speech, Sensation intact Psych/Mental Status: Mood NL Vitals VITALS Vital Signs Date Time Temp Pulse Resp B/P (MAP) Pulse Ox O2 Delivery O2 Flow Rate FiO2 08/10/20 08:58 63 120/69 08/10/20 08:00 Room Air 08/10/20 07:00 98.2 16 95 98.2 Labs Labs Laboratory Tests Test 08/09/20 13:02 08/10/20 04:55 Red Blood Count 3.08 x10^6/uL (4.30-5.70) Absolute Reticulocyte Count 0.030 x10^6/uL (0.020-0.120) Percent Reticulocyte Count 1.0 % (0.5-2.3) Immature Reticulocyte Fraction 0.41 (0.20-0.60) Haptoglobin 194 mg/dL (34-355) Uric Acid 2.9 mg/dL (3.5-7.2) Iron Level 26 ug/dL (65-175) Total Iron Binding Capacity 218 ug/dL (250-450) Iron Saturation 12 % (15-34) Ferritin 307 ng/mL (26-388) Lactate Dehydrogenase 142 U/L (85-227) Total Protein (PEP) 6.9 g/dL (6.0-8.5) Albumin (PEP) 3.7 g/dL (2.9-4.4) Globulin 3.2 g/dL (2.2-3.9) Albumin/Globulin Ratio 1.2 (0.7-1.7) Qoyom-8-Ltxfwdkge 0.3 g/dL (0.0-0.4) Pfuko-1-Pqjcctxci 0.8 g/dL (0.4-1.0) Beta Globulins 0.9 g/dL (0.7-1.3) Gamma Globulins 1.2 g/dL (0.4-1.8) Protein Electrophoresis M-Cleve Not observed g/dL (Not Protein Electrophoresis Comment Comment (.) Vitamin B12 Level 1658 pg/mL (247-911) Sodium Level 142 mmol/L (136-145) Potassium Level 4.6 mmol/L (3.5-5.1) Chloride Level 104 mmol/L (98-107) Carbon Dioxide Level 30 mmol/L (21-32) Anion Gap 8 (6-14) Blood Urea Nitrogen 22 mg/dL (8-26) Creatinine 5.2 mg/dL (0.7-1.3) Estimated GFR (Cockcroft-Gault) 10.9 Glucose Level 107 mg/dL (70-99) Calcium Level 9.1 mg/dL (8.5-10.1) Laboratory Tests Test 08/10/20 04:55 Sodium Level 142 mmol/L (136-145) Potassium Level 4.6 mmol/L (3.5-5.1) Chloride Level 104 mmol/L (98-107) Carbon Dioxide Level 30 mmol/L (21-32) Anion Gap 8 (6-14) Blood Urea Nitrogen 22 mg/dL (8-26) Creatinine 5.2 mg/dL (0.7-1.3) Estimated GFR (Cockcroft-Gault) 10.9 Glucose Level 107 mg/dL (70-99) Calcium Level 9.1 mg/dL (8.5-10.1) Images Images EGD with esophageal mass CT with mass and concern for metastasis Assessment/Plan Assessment/Plan Esophageal cancer. Agree with oncology about considering palliative radiotherapy. Unlikely to benefit from surgical resection, given metastasis and poor surgical candidate. Would consider surgical gastrostomy if PEG not option and pt progresses to not able to eat. Thanks for consult! LEN WATKINS MD Aug 10, 2020 16:09
[2020-08-12 15:30] LABS: KAPPA LAMBDA RATIO 1.82 (0.26-1.65); LAMBDA FREE 82.3 mg/L (5.7-26.3)
== END 2020-08-10 15:30 | DRG 374 ==
LOC: 4 NORTH 20:38 → 2 SOUTH 08-04 14:44
PROVIDERS: ADMIT Family Medicine; ATTEND Family Medicine
PROC: 0DB48ZX Excision of Esophagogastric Junction, Via Natural or Artificial Opening Endoscopic, Diagnostic (ICD-10-PCS; principal; 2020-08-04 13:00)
PROC: 5A1D70Z Performance of Urinary Filtration, Intermittent, Less than 6 Hours Per Day (ICD-10-PCS; 2020-08-05)
PROC: 5A1D70Z Performance of Urinary Filtration, Intermittent, Less than 6 Hours Per Day (ICD-10-PCS; 2020-08-08)
PROC: 5A1D70Z Performance of Urinary Filtration, Intermittent, Less than 6 Hours Per Day (ICD-10-PCS; 2020-08-10)
DX: C15.9 Malignant neoplasm of esophagus, unspecified (principal); N18.6 End stage renal disease; I69.354 Hemiplegia and hemiparesis following cerebral infarction affecting left non-dominant side; I50.22 Chronic systolic (congestive) heart failure; I13.2 Hypertensive heart and chronic kidney disease with heart failure and with stage 5 chronic kidney disease, or end stage renal disease; I42.8 Other cardiomyopathies; I31.3 Pericardial effusion (noninflammatory); K22.2 Esophageal obstruction; M19.90 Unspecified osteoarthritis, unspecified site; Z20.822 Contact with and (suspected) exposure to COVID-19; I25.10 Atherosclerotic heart disease of native coronary artery without angina pectoris; E78.5 Hyperlipidemia, unspecified; M10.9 Gout, unspecified; E11.22 Type 2 diabetes mellitus with diabetic chronic kidney disease; F41.9 Anxiety disorder, unspecified; R13.10 Dysphagia, unspecified; F03.90 Unspecified dementia, unspecified severity, without behavioral disturbance, psychotic disturbance, mood disturbance, and anxiety; D53.9 Nutritional anemia, unspecified; I48.0 Paroxysmal atrial fibrillation; I44.7 Left bundle-branch block, unspecified; K52.9 Noninfective gastroenteritis and colitis, unspecified; D69.6 Thrombocytopenia, unspecified; R63.3 Feeding difficulties; K29.70 Gastritis, unspecified, without bleeding; E04.2 Nontoxic multinodular goiter; I27.20 Pulmonary hypertension, unspecified; E21.3 Hyperparathyroidism, unspecified; K57.90 Diverticulosis of intestine, part unspecified, without perforation or abscess without bleeding; Z51.5 Encounter for palliative care; Z99.2 Dependence on renal dialysis; Z98.49 Cataract extraction status, unspecified eye; Z88.8 Allergy status to other drugs, medicaments and biological substances; Z91.018 Allergy to other foods; Z79.01 Long term (current) use of anticoagulants; Z85.528 Personal history of other malignant neoplasm of kidney; Z91.19 Patient's noncompliance with other medical treatment and regimen; Z90.5 Acquired absence of kidney; I25.2 Old myocardial infarction; Z83.3 Family history of diabetes mellitus; Z82.49 Family history of ischemic heart disease and other diseases of the circulatory system
CPT/HCPCS: 36415; 43239; 71260; 74177; 80048; 80053; 82607; 82668; 82728; 82962; 83010; 83520; 83540; 83550; 83615; 84165; 84439; 84443; 84550; 85025; 85045; 87426; 88305; C9113; J2704; J3490; J7030; Q9966; Q9967; U0003; 97110-GO; 97110-GP; 97116-GP; 97530-GP; 97535-GO; G0378

== ENCOUNTER → 2020-08-19 | Outpatient (CLI) | payer MEDICARE, BC ==
[2020-08-13 11:00] VITALS: BP 97/49
--- NOTE | 2020-08-21 17:49 | RAD ---
EXAM: PET/CT SCAN INDICATION: Esophageal cancer COMPARISON: CT chest abdomen pelvis 08/06/2020 PET/CT SCAN TECHNIQUE: Approximately 60 minutes after the intravenous administration of 13.58millicur ies of F-18 fluorodeoxyglucose (FDG), PET imaging of the body from the base of the skull through the mid thighs was performed. Reconstruction in all 3 planes were performed. The patient's serum glucose level at the time of the F-18 FDG administration was 154 mg/dL. A noncontrast CT scan was obtained fo r attenuation correction and anatomic localization purposes only and is not considered a diagnostic C T scan. PQRS compliance Statement One or more of the following individualized dose reduction techniques were utilized for this study: 1. Automated exposure control 2. Adjustment of the mA and/or kV according to patient size 3. Use of iterative reconstruction technique FINDINGS: Background: Mediastinal SUV max: 2.97 Liver SUV max: 4.18 HEAD AND NECK: A lymph node in the lower left neck measuring 1.3 cm short axis has mild FDG uptake wi th SUV max 2.9. There is a multinodular thyroid gland with diffuse mild FDG uptake, 2.8 SUV. CHEST: Small AP window and right paratracheal lymph node with low level FDG uptake SUV max 2.5 and 2. 6, respectively. There are small bilateral pleural effusions with no FDG uptake. Pulmonary opacities, and interlobular septal thickening consistent with pulmonary edema. No suspicious pulmonary nodules. Mild cardiomegaly and coronary artery calcifications. ABDOMEN AND PELVIS: There is moderate FDG uptake at the gastroesophageal junction and in the gastric cardia with SUV max 8.3. There is a 1.2 cm short axis portacaval lymph node with possible mild FDG uptake, SUV max 4.3, versus misregistration. No other abnormal FDG uptake in the abdomen. The liver, spleen, pancreas, kidneys, and adrenal glands are normal. MUSCULOSKELETAL: No abnormal FDG uptake in the bones. There is a focus of FDG uptake in the right glu teus carlota muscle just inferior to the initial tuberosity with SUV max 3.73, nonspecific. IMPRESSION: 1. Moderate FDG uptake at the gastroesophageal junction and gastric cardia with SUV max 8.3, correlat ing with the patient's known esophageal cancer. 2. Mild FDG uptake in a portacaval lymph node with SUV max 4.3 cm may be artifact/misregistration, ho wever metastatic disease is not excluded. Recommend attention on follow-up. 3. Low level FDG uptake in a left neck lymph node, and 2 small mediastinal lymph nodes, nonspecific. 4. Small focus of mild FDG uptake in the right gluteus carlota muscle without obvious CT correlation is also nonspecific and could be artifact. Electronically signed by: Jesusita Hester MD (08/21/2020 5:47 PM) [id number]
== END ==
LOC: PETSC 08:45
PROVIDERS: ATTEND Internal Medicine Hematology & Oncology
DX: C15.9 Malignant neoplasm of esophagus, unspecified (principal); J90 Pleural effusion, not elsewhere classified; I51.7 Cardiomegaly; R91.8 Other nonspecific abnormal finding of lung field
CPT/HCPCS: 78815; A9552